=== PATIENT | female | born 1945 | race Caucasian/White ===

== ENCOUNTER 2017-02-19 09:00 | Outpatient (RCR) | payer MEDICARE, OTHER, SELFPAY ==
--- NOTE | 2016-12-25 11:45 | HP.OTEVAL_ITS ---
Patient's Visit Information VINAY TALAVERA is a 71 year old F, referred to Occupational Therapy by Brennen Hopper,, with a diagnosis of Dupuytren's contracture right small finger. Date of Evaluation: 12/25/16 Occupational Therapist: Marquita Ruby, OTR/L, CHT - Subjective Subjective: Pt arrives for inital OT evaluation 12-25-16. She was refered by Dr. Hopper with dx of Dupuytren's contracture right small finger-s/p release on . pt arrives in need of custom orthosis and ed. of exercises to intiate to limit ROM complications. pt states she needs assistance with all her daily occupations at this time. she is hopeful she can return to her PLOF soon. - Pain Right hand 2 Pain Intensity Range: 2, 5 - Objective Objective/Observation: pt demo with newly heal incision on right hand and LF- looks clean a is healing- stitches to be removed in another week- per pt. - ROM MP: Right LF 20/0 left LF 0/85 PIP: Right LF -15/60 left LF 0/95 DIP: Right LF 20 Left LF 0/80 ROM Comments: Pt demo with limited functional ROM of right composite fist due to swelling and newly healing incisions- - Strength Artist And Repertoire Manager: will test at later date - Edema Proximal Phalanx: right 7.6 left 7.1 - Hand/Wrist Evaluation Total Score of Pain & Functional Sections: 80 - Goals Goal:: Pt will demostrate increase in right functional grasp demonstrating a composite fist to incrase ind with holding coins etc by d/c Goal:: pt will report pain no greater than 1/10 with use of right hand during functional ADLS and IADLS by d/c Goal:: pt will demo a reduction in right hand edema by .5 cm by week 3. Goal:: pt will demonstrate understanding of scar mtg by end of 4th session to decrease risk of hypertrophic scaring. Goal:: g code initial CM. g code goal CI - Rehabilitation General Assessment: S/P release. Pt demo newly healing incision, limited functional ROM, edema and pain Rehabilitation Potential: Excellent - Anticipated Interventions Anticipated Interventions: A/AAROM/PROM, Strengthening, Edema Control, Scar Care , Triggerpoint Release, Wound Care, Modalities, Orthoses, Fine Motor Coord/ Olu - Visit Plan Frequency: 1-2x /Week Duration: 4 Weeks General Plan: pt demonstrating need for skilled OT services- lien. of silasitc extension splint for pt to use at night and when out of the house- ed. pt on AROM ex to perform every hour- onece incision is healed and pt demo good functional ROM we will initiate PRE. TEXT: Thank you for the opportunity to evaluate your patient. For Medicare and Medicare HMO plans, please review the plan of care and approve it. It will need to be FAXED BACK to us at [phone] for Medicare purposes. Please let me know if there are questions or concerns regarding this plan of care. Physician Signature: Date:
--- NOTE | 2016-12-26 09:00 | HP.OTEVAL ---
Patient's Visit Information VINAY TALAVERA is a 71 year old F, referred to Occupational Therapy by Brennen Hopper,, with a diagnosis of Dupuytren's contracture right small finger. Date of Evaluation: 12/25/16 Occupational Therapist: Marquita Ruby, OTR/L, CHT - Subjective Subjective: Pt arrives for inital OT evaluation 12-25-16. She was refered by Dr. Hopper with dx of Dupuytren's contracture right small finger-s/p release on 12-18-16. pt arrives in need of custom orthosis and ed. of exercises to intiate to limit ROM complications. pt states she needs assistance with all her daily occupations at this time. she is hopeful she can return to her PLOF soon. - Pain Right hand 2 Pain Intensity Range: 2, 5 - Objective Objective/Observation: pt demo with newly heal incision on right hand and LF- looks clean a is healing- stitches to be removed in another week- per pt. - ROM MP: Right LF 20/0 left LF 0/85 PIP: Right LF -15/60 left LF 0/95 DIP: Right LF 20 Left LF 0/80 ROM Comments: Pt demo with limited functional ROM of right composite fist due to swelling and newly healing incisions- - Strength Glass Pulverizer Equipment Operator: will test at later date - Edema Proximal Phalanx: right 7.6 left 7.1 - Hand/Wrist Evaluation Total Score of Pain & Functional Sections: 80 - Goals Goal:: Pt will demostrate increase in right functional grasp demonstrating a composite fist to incrase ind with holding coins etc by d/c Goal:: pt will report pain no greater than 1/10 with use of right hand during functional ADLS and IADLS by d/c Goal:: pt will demo a reduction in right hand edema by .5 cm by week 3. Goal:: pt will demonstrate understanding of scar mtg by end of 4th session to decrease risk of hypertrophic scaring. Goal:: g code initial CM. g code goal CI - Rehabilitation General Assessment: S/P release. Pt demo newly healing incision, limited functional ROM, edema and pain Rehabilitation Potential: Excellent - Anticipated Interventions Anticipated Interventions: A/AAROM/PROM, Strengthening, Edema Control, Scar Care, Triggerpoint Release, Wound Care, Modalities, Orthoses, Fine Motor Coord/Olu - Visit Plan Frequency: 1-2x /Week Duration: 4 Weeks General Plan: pt demonstrating need for skilled OT services- lien. of silasitc extension splint for pt to use at night and when out of the house- ed. pt on AROM ex to perform every hour- onece incision is healed and pt demo good functional ROM we will initiate PRE. TEXT: Thank you for the opportunity to evaluate your patient. For Medicare and Medicare HMO plans, please review the plan of care and approve it. It will need to be FAXED BACK to us at [phone] for Medicare purposes. Please let me know if there are questions or concerns regarding this plan of care. Physician Signature: Date:
--- NOTE | 2017-02-19 09:44 | HP.OTDCSUM_ITS ---
HP - OT D/C Summary It has been my pleasure to treat VINAY TALAVERA under orders from Brennen Hopper, for the diagnosis of Dupuytren's contracture right small finger for a total of 15 visit(s). Please see the following information for a summary of their discharge status. - Objective Objective/Function: pt states she is ind. with all BADLS and craft activitites - Goals Patient Goals: Regain Mobility, Regain Strength, Decrease Pain, Decrease Swelling/Stiffness, Use Hand/Wrist/Arm Normally Again Goal:: Pt will demostrate increase in right functional grasp demonstrating a composite fist to incrase ind with holding coins etc by d/c Goal:: pt will report pain no greater than 1/10 with use of right hand during functional ADLS and IADLS by d/c Goal:: pt will demo a reduction in right hand edema by .5 cm by week 3. Goal:: pt will demonstrate understanding of scar mtg by end of 4th session to decrease risk of hypertrophic scaring. Goal:: g code initial CM. g code goal CI - Plan Plan: D/C - D/C Information Discharge Comments: Pt has met functional goals in OT and reports ind. with all BADLS and IADLs. pt is D/C at this time. If there are questions or concerns regarding this patient's occupational therapy , please fell free to call me at [phone]. Thank you for the referral of this patient. Sincerely, Marquita Ruby, OTR/L, CHT
== END 2017-02-19 19:00 | disposition home or self-care (01) ==
LOC: OT 09:00
PROVIDERS: Family Provider Internal Medicine; PCP Internal Medicine; Visit Provider Surgery
DX: M72.0 Palmar fascial fibromatosis [Dupuytren] (principal)
CPT/HCPCS: 97035; 97110; 97140; 97166; 97530; 97760; G8987; G8988; G8989

== ENCOUNTER → 2017-07-04 07:36 | Outpatient (CLI) | payer MEDICARE, SELFPAY ==
--- NOTE | 2017-07-04 07:14 | HPBI_ITS ---
MAMMOGRAPHY - BILATERAL SCREENING REASON FOR EXAM: Female, 71 years old. Routine annual screening examination. PERTINENT HISTORY: Mother with breast cancer. Grandmother with breast cancer. TECHNIQUE: Digital bilateral breast santa (3D mammographic acquisition) in the CC and MLO projections. 2-D mediolateral oblique (MLO) and craniocaudad (CC) views of both breasts were obtained. CAD: Full Field Digital Mammography with Computer Added Detection was performed. COMPARISON: Comparison is made with prior outside examination dated February 27, 2016. FINDINGS: Breast Composition: There are scattered areas of fibroglandular density. There are no dominant masses or suspicious calcifications. No other significant abnormalities are identified. There has been no significant change since the prior study. HPBI/SCREENING MAMM (CAD), BILAT IMPRESSION: Stable bilateral screening mammogram. Yearly follow-up mammogram recommended. (A) ASSESSMENT CATEGORY: BIRADS Category 1: Negative. A letter regarding these results will be sent to the patient by the facility within 30 days. Approximately 10% of breast cancers are not detected by mammography. A normal mammogram should not delay biopsy of a clinically suspicious abnormality. [id number] Electronically Signed: Andre Brian MD at 8:47 EDT Tel [phone], Service support ,
== END ==
PROVIDERS: Family Provider Internal Medicine; PCP Internal Medicine; Visit Provider Obstetrics & Gynecology
DX: Z12.31 Encounter for screening mammogram for malignant neoplasm of breast (principal); Z80.3 Family history of malignant neoplasm of breast
CPT/HCPCS: 77063; 77067

== ENCOUNTER → 2018-07-21 07:37 | Outpatient (CLI) | payer MEDICARE, SELFPAY ==
--- NOTE | 2018-07-21 07:41 | BI_ITS ---
MAMMOGRAPHY - BILATERAL SCREENING REASON FOR EXAM: Female, 72 years old. Routine annual screening examination. PERTINENT HISTORY: Mother with breast cancer. Grandmother with breast cancer. TECHNIQUE: Digital bilateral breast sunita (3D mammographic acquisition) in the CC and MLO projections. 2-D mediolateral oblique (MLO) and craniocaudad (CC) views of both breasts were obtained. CAD: Full Field Digital Mammography with Computer Added Detection was performed. COMPARISON: Comparison is made with prior study dated July 04, 2017 and February 27, 2016. FINDINGS: Breast Composition: There are scattered areas of fibroglandular density. There are no dominant masses or suspicious calcifications. Stable benign-appearing axillary lymph nodes. No other significant abnormalities are identified. There has been no significant change since the prior study. BI/SCREEN MAMM (CAD) W/SUNITA BILAT IMPRESSION: Stable bilateral screening mammogram. Yearly follow-up mammogram recommended. (A) ASSESSMENT CATEGORY: BIRADS Category 2: Benign. A letter regarding these results will be sent to the patient by the facility within 30 days. Approximately 10% of breast cancers are not detected by mammography. A normal mammogram should not delay biopsy of a clinically suspicious abnormality. [id number] Electronically Signed: Andre Brian, at 10:33 EDT , Service support ,
== END ==
PROVIDERS: Family Provider Internal Medicine; PCP Internal Medicine; Referring Provider Obstetrics & Gynecology; Visit Provider Obstetrics & Gynecology
DX: Z12.31 Encounter for screening mammogram for malignant neoplasm of breast (principal)
CPT/HCPCS: 77063; 77067

== ENCOUNTER → 2018-09-22 07:06 | Outpatient (CLI) | payer MEDICARE, SELFPAY ==
[2018-09-02 11:11] VITALS: BMI 34.9
[2018-09-22 08:06] LABS: Cholesterol 173 mg/dL (200); Glucose 109 mg/dL (74-106); High Density Lipoprotein 44 mg/dL; Triglycerides 122 mg/dL; Very Low Density Lipoprotein 24 mg/dL (5-40)
[2018-09-22 08:19] LABS: Vitamin D,25 Hydroxy 53.7 ng/mL (29.95-100.01)
--- NOTE | 2018-09-22 08:25 | BD_ITS ---
STUDY: DUAL ENERGY X-RAY ABSORPTIOMETRY / DXA REASON FOR EXAM: Female, 73 years old. The patient is postmenopausal. No loss of height. TECHNIQUE: Bone Mineral Density (BMD) measurements of lumbar spine and bilateral hips were obtained. COMPARISON: Comparison is made with prior study dated February 19, 2001. FINDINGS: Lumbar Spine (L1-L4): g/cm2 (1.080) / T-score (-0.8) / Z-score (0.9) Findings are suggestive of normal bone density with a low fracture risk. Left Femur Total: g/cm2 (1.005) / T-score (0.0) / Z-score (1.6) Left Femoral Neck: g/cm2 (0.914) / T-score (-0.9) / Z-score (0.9) Right Femur Total: g/cm2 (1.058) / T-score (0.4) / Z-score (2.0) Right Femoral Neck: g/cm2 (0.976) / T-score (-0.4) / Z-score (1.3) The T-Scores on the most recent prior examination were: Lumbar Spine (L1-L4): There has been worsening of bone density since the previous examination. Left Femur Total: which represents a worsening of 15%. Right Femur Total: . BD/Dexa Bone Density Study IMPRESSION: The patient is considered normal as outlined below according to [employer] (WHO) criteria with a low fracture risk. There has been worsening of bone density since the previous examination. Reference Information: The T-score is the number of standard deviations above or below the standard which is normal for young adults at their peak bone mineral density. The World Health Organization (WHO) interprets the T-scores as follows: Above -1 Normal bone density Between -1 and -2.5 Osteopenia Equal to / or below -2.5 Osteoporosis As a practical clinical guideline, osteopenia may be graded as follows: Mild -1 through -1.5 Moderate -1.6 through -2.0 Severe -2.1 through -2.4 The Z-score is the number of standard deviations above or below age-matched controls. A Z-score of less than -1.5 would be considered abnormal. References: 1. NIH Osteoporosis and Related Bone Diseases http://www.osteo.org 2. International Society for Clinical Densitometry http://www.iscd.org 3. National Osteoporosis Foundation http://www.nof.org Electronically Signed: Andre Brian, at 10:20 EDT , Service support ,
== END ==
PROVIDERS: Family Provider Internal Medicine; PCP Internal Medicine; Referring Provider Obstetrics & Gynecology; Visit Provider Obstetrics & Gynecology
DX: E78.5 Hyperlipidemia, unspecified (principal); Z13.1 Encounter for screening for diabetes mellitus; Z13.21 Encounter for screening for nutritional disorder; Z78.0 Asymptomatic menopausal state
CPT/HCPCS: 36415; 77080; 80061; 82306; 82947

== ENCOUNTER → 2018-10-23 07:18 | Outpatient (CLI) | payer MEDICARE, SELFPAY ==
[2018-09-02 11:11] VITALS: BMI 34.9
[2018-10-23 08:00] LABS: Creatinine, Serum 0.86 mg/dL (0.55-1.02); EST Glomerular Filtration Rate 69 mL/min (>60); Est Glom Filt Rate - Afr Amer 84 mL/min (>60)
== END ==
PROVIDERS: Family Provider Internal Medicine; PCP Internal Medicine; Referring Provider Podiatrist Foot & Ankle Surgery; Visit Provider Podiatrist Foot & Ankle Surgery
DX: M79.9 Soft tissue disorder, unspecified (principal)
CPT/HCPCS: 36415; 82565

== ENCOUNTER → 2018-11-06 09:25 | Outpatient (CLI) | payer MEDICARE, SELFPAY ==
[2018-11-06 08:58] VITALS: BMI 34.8
[2018-11-06 12:29] LABS: Anion Gap 8 (5-15); BUN 17 mg/dL (7-18); Calcium,Total 9.3 mg/dL (8.5-10.1); Chloride 102 mmol/L (98-107); Creatinine, Serum 0.95 mg/dL (0.55-1.02); EST Glomerular Filtration Rate 62 mL/min (>60); Est Glom Filt Rate - Afr Amer 75 mL/min (>60); Glucose 139 mg/dL (74-106); Magnesium 1.7 mg/dL (1.6-2.6); Potassium 3.6 mmol/L (3.5-5.1); Sodium Level 140 mmol/L (136-145)
== END ==
PROVIDERS: Family Provider Internal Medicine; PCP Internal Medicine; Visit Provider Internal Medicine
DX: I10 Essential (primary) hypertension (principal); R00.2 Palpitations
CPT/HCPCS: 36415; 80048; 83735

== ENCOUNTER → 2018-12-14 07:47 | Outpatient (CLI) | payer MEDICARE, SELFPAY ==
[2018-12-11 09:53] VITALS: BMI 34.8
--- NOTE | 2018-12-14 07:49 | EKG12_ITS ---
Test Reason : Blood Pressure : / mmHG Vent. Rate : 067 BPM Atrial Rate : 067 BPM P-R Int : 152 ms QRS Dur : 080 ms QT Int : 408 ms P-R-T Axes : 045 -03 030 degrees QTc Int : 431 ms Normal sinus rhythm Nonspecific ST abnormality Abnormal ECG Confirmed by NASH OLEARY, KATELIN ([id number]), fashion editor RICH BALDWIN ([id number]) on 12/14/2018 1:28:19 PM Referred By: Eboni Katz Confirmed By:KATELIN CAO MD
== END ==
PROVIDERS: Family Provider Internal Medicine; PCP Internal Medicine; Referring Provider Internal Medicine; Visit Provider Internal Medicine
DX: R00.2 Palpitations (principal)
CPT/HCPCS: 93005

== ENCOUNTER → 2019-03-04 14:59 | Outpatient (CLI) | payer MEDICARE, SELFPAY ==
[2019-03-04 09:46] VITALS: BMI 34.8
== END ==
PROVIDERS: Family Provider Internal Medicine; PCP Internal Medicine; Visit Provider Nurse Practitioner Women's Health
DX: R30.0 Dysuria (principal)
CPT/HCPCS: 87077; 87086; 87088; 87186

== ENCOUNTER → 2019-03-16 09:38 | Outpatient (CLI) | payer MEDICARE, SELFPAY ==
[2019-03-16 09:16] VITALS: BMI 34.8
[2019-03-16 09:57] LABS: Mucous, Urine 0 SEEN /hpf (<or=2+); Red Blood Cells-Urine 0 SEEN /hpf (0-5)
[2019-03-16 12:49] LABS: Color, Urine Yellow (Yellow); Glucose, Dipstick Normal (Normal); Ketone-Dipstick Negative (Negative); Leukocyte Esterase-Dipstick 500 /ul (Negative); Nitrite-Dipstick Negative (Negative); Occult Blood-Urine Negative /ul (Negative); Protein-Dipstick Negative (Negative); Urine Bilirubin Dipstick Negative (Negative); Urine Clarity Clear (Clear); Urine Urobilinogen 1 mg/dl (Normal)
[2019-03-16 13:01] LABS: Bacteria RARE /hpf (None Seen); Squamous Epithelial Cells - UA 0-5 SEEN /hpf (5-10); White Blood Cells 0-5 SEEN /hpf (0-5)
== END ==
PROVIDERS: Family Provider Internal Medicine; PCP Internal Medicine; Visit Provider Internal Medicine
DX: N39.0 Urinary tract infection, site not specified (principal)
CPT/HCPCS: 81001

== ENCOUNTER → 2019-05-05 10:13 | Outpatient (CLI) | payer MEDICARE, SELFPAY ==
[2019-03-16 09:16] VITALS: BMI 34.8
[2019-05-05 10:58] LABS: Anion Gap 4 (5-15); BUN 21 mg/dL (7-18); BUN/Creat Ratio 17.4 RATIO (10-20); Calcium,Total 9.1 mg/dL (8.5-10.1); Chloride 103 mmol/L (98-107); Creatinine, Serum 1.21 mg/dL (0.55-1.02); EST Glomerular Filtration Rate 46 mL/min (>60); Est Glom Filt Rate - Afr Amer 56 mL/min (>60); Glucose 99 mg/dL (74-106); Sodium Level 138 mmol/L (136-145)
== END ==
PROVIDERS: Family Provider Internal Medicine; PCP Internal Medicine; Referring Provider Internal Medicine; Visit Provider Internal Medicine
DX: I10 Essential (primary) hypertension (principal); N39.0 Urinary tract infection, site not specified
CPT/HCPCS: 36415; 80048; 87086; 87186

== ENCOUNTER → 2019-05-24 08:45 | Outpatient (CLI) | payer MEDICARE, SELFPAY ==
[2019-05-24 08:24] VITALS: BMI 34.8
[2019-05-24 12:25] LABS: Anion Gap 6 (5-15); BUN 16 mg/dL (7-18); BUN/Creat Ratio 17.4 RATIO (10-20); Calcium,Total 9.4 mg/dL (8.5-10.1); Chloride 104 mmol/L (98-107); Creatinine, Serum 0.92 mg/dL (0.55-1.02); EST Glomerular Filtration Rate 64 mL/min (>60); Est Glom Filt Rate - Afr Amer 77 mL/min (>60); Glucose 125 mg/dL (74-106); Potassium 3.7 mmol/L (3.5-5.1); Sodium Level 139 mmol/L (136-145)
== END ==
PROVIDERS: PCP Internal Medicine; Referring Provider Internal Medicine; Visit Provider Internal Medicine
DX: I10 Essential (primary) hypertension (principal)
CPT/HCPCS: 36415; 80048

== ENCOUNTER → 2019-05-28 09:11 | Outpatient (CLI) | payer MEDICARE, SELFPAY ==
[2019-05-24 08:24] VITALS: BMI 34.8
--- NOTE | 2019-05-28 09:12 | US_ITS ---
STUDY: ABDOMINAL ULTRASOUND - RIGHT UPPER QUADRANT REASON FOR VISIT: Female, 73 years old pain, nausea and vomiting TECHNIQUE: Ultrasound evaluation of the right upper quadrant was performed with real-time and static burnett-scale imaging. TECHNICAL QUALITY: Adequate. COMPARISON: None. FINDINGS: Liver: The liver measures 15.7 cm. There is increased echogenicity consistent with fatty infiltration. The bile ducts are within normal limits. There is hepatic color flow. The direction of portal flow is hepatopetal. There is no demonstrated mass lesion. Gallbladder: Normal distended gallbladder. The gallbladder wall measures 3 mm. There is a negative sonographic Barnett''s sign. There is no pericholecystic fluid. There are no gallstones. Common Bile Duct (C.B.D.): The common bile duct measures 4 mm. Pancreas: Normal size of the head, body and tail of the pancreas. There is normal echogenicity of the pancreas. There is no demonstrated pancreatic mass or cyst. Right Kidney: Normal size of the right kidney. The right kidney measures 10.7 x 5.1 x 4.1 cm. Normal renal cortex. The right cortex measures 1.4 cm. There is no demonstrated renal mass or cyst. There is no right hydronephrosis. US/Abdomen Limited IMPRESSION: Diffuse fatty infiltration of the liver, no discrete lesion Electronically Signed: Adam Sandy MD at 14:41 EST , Service support ,
== END ==
PROVIDERS: PCP Internal Medicine; Referring Provider Internal Medicine; Visit Provider Internal Medicine
DX: R11.0 Nausea (principal)
CPT/HCPCS: 76705

== ENCOUNTER → 2019-06-21 08:40 | Outpatient (CLI) | payer MEDICARE, SELFPAY ==
[2019-06-21 08:20] VITALS: BMI 34.0
[2019-06-21 13:13] LABS: ALB/GLOB Ratio 0.9 RATIO (0.9-2.4); AST(SGOT) 18 U/L (15-37); Alanine Aminotransfer ALT/SGPT 23 U/L (13-56); Albumin, Serum 3.4 g/dL (3.2-5.0); Alkaline Phosphatase 87 U/L (45-117); Anion Gap 5 (5-15); BUN 16 mg/dL (7-18); BUN/Creat Ratio 18.5 RATIO (10-20); Calcium,Total 9.2 mg/dL (8.5-10.1); Chloride 103 mmol/L (98-107); Creatinine, Serum 0.87 mg/dL (0.55-1.02); EST Glomerular Filtration Rate 68 mL/min (>60); Est Glom Filt Rate - Afr Amer 82 mL/min (>60); Globulin 3.6 g/dL (2.2-4.2); Glucose 130 mg/dL (74-106); Potassium 3.6 mmol/L (3.5-5.1); Sodium Level 138 mmol/L (136-145)
== END ==
PROVIDERS: PCP Internal Medicine; Referring Provider Internal Medicine; Visit Provider Internal Medicine
DX: I10 Essential (primary) hypertension (principal); E78.5 Hyperlipidemia, unspecified
CPT/HCPCS: 36415; 80053

== ENCOUNTER → 2019-09-09 07:59 | Outpatient (CLI) | payer MEDICARE, SELFPAY ==
[2019-06-21 12:53] VITALS: BMI 34.8
--- NOTE | 2019-09-09 08:00 | BI_ITS ---
MAMMOGRAPHY - BILATERAL SCREENING REASON FOR EXAM: Female, 74 years old. Routine annual screening examination. PERTINENT HISTORY: Mother with breast cancer. Grandmother with breast cancer. TECHNIQUE: Digital bilateral breast sunita (3D mammographic acquisition) in the CC and MLO projections. 2-D mediolateral oblique (MLO) and craniocaudad (CC) views of both breasts were obtained. CAD: Full Field Digital Mammography with Computer Added Detection was performed. COMPARISON: Comparison is made with prior examination dated July 21, 2018 and July 04, 2017. FINDINGS: Breast Composition: There are scattered areas of fibroglandular density. There are no dominant masses or suspicious calcifications. Stable benign-appearing right axillary lymph nodes. No other significant abnormalities are identified. There has been no significant change since the prior study. BI/SCREEN MAMM (CAD) W/SUNITA BILAT IMPRESSION: Stable bilateral screening mammogram. Yearly follow-up mammogram recommended. (A) ASSESSMENT CATEGORY: BIRADS Category 2: Benign. A letter regarding these results will be sent to the patient by the facility within 30 days. Approximately 10% of breast cancers are not detected by mammography. A normal mammogram should not delay biopsy of a clinically suspicious abnormality. [id number] Electronically Signed: Andre Brian, at 10:10 EDT , Service support ,
== END ==
PROVIDERS: PCP Internal Medicine; Referring Provider Obstetrics & Gynecology; Visit Provider Obstetrics & Gynecology
DX: Z12.31 Encounter for screening mammogram for malignant neoplasm of breast (principal)
CPT/HCPCS: 77063; 77067

== ENCOUNTER → 2019-10-13 07:42 | Outpatient (CLI) | payer MEDICARE, SELFPAY ==
[2019-09-09 08:24] VITALS: BMI 34.8
--- NOTE | 2019-10-13 07:50 | CT_ITS ---
CT of the left lower extremity without contrast INDICATION: Left knee arthritis, Allen protocol TECHNIQUE: Multiple thin section axial CT images the left lower extremity were obtained through the hip joint, knee joint, and ankle with a fiducial in place and filmed in bone windows. Furthermore, multiple sagittal and coronal reconstructions were performed. FINDINGS: No abnormal soft tissue mass, lymphadenopathy, fluid collection. Normal appearance to the musculature of the thigh and leg. No acute fracture or dislocation. No lytic or blastic lesions. Mild arthrosis of the left hip joint. Severe arthrosis of the left knee joint. No arthrosis of the tibiotalar joint. IMPRESSION: Severe left knee arthrosis. Electronically Signed: Matias Muller MD at 9:03 EDT Tel , Service support , CT/Extremity Lower without Contra
== END ==
PROVIDERS: PCP Internal Medicine; Referring Provider Orthopaedic Surgery; Visit Provider Orthopaedic Surgery
DX: M17.12 Unilateral primary osteoarthritis, left knee (principal)
CPT/HCPCS: 73700

== ENCOUNTER 2019-10-25 09:12 | Observation (INO) | payer MEDICARE, SELFPAY ==
[2019-09-09 08:24] VITALS: BMI 34.8
--- NOTE | 2019-10-13 07:53 | EKG12_ITS ---
Test Reason : PRE OP Blood Pressure : / mmHG Vent. Rate : 070 BPM Atrial Rate : 070 BPM P-R Int : 154 ms QRS Dur : 082 ms QT Int : 400 ms P-R-T Axes : 043 012 018 degrees QTc Int : 432 ms Normal sinus rhythm Normal ECG Confirmed by BENJI MEDINA ([id number]), story editor RORO FAITH ([id number]) on 10/19/2019 8:02:14 AM Referred By: Manuel Wu Confirmed By:BENJI MEDINA
[2019-10-13 08:13] LABS: Absolute Lymphocyte Count 2.32 X10^3/uL (0.83-4.51); Absolute Neutrophil Count 4.3 X10^3/uL (2.0-7.7); Basophil# 0.05 X10^3/uL; Basophil% 0.7 % (0-1); Eosinophil# 0.16 X10^3/uL; Eosinophils% 2.1 % (0-5); Hematocrit 41.6 % (37-47); Hemoglobin 13.5 g/dL (12.0-15.0); Lymphocyte # 2.32 X10^3/ul (4.0); Lymphocyte % 30.8 % (19-41); Mean Corp Hgb Conc 32.5 g/dL (32-36); Mean Corpuscular Volume 92.4 fL (81-99); Mean Platelet Vol. 10.8 fl (6.2-12.0); Monocyte# 0.66 X10^3/uL; Monocyte% 8.8 % (0-10); NRBC Flagged by Analyzer 0 % (0-5); Neutrophil # 4.33 X10^3/uL (2.7-7.7); Neutrophil % 57.3 % (47-70); Platelet Count 214 K/mm3 (150-450); RBC Distribution Width CV 12.9 % (11.6-14.6); RBC Distribution Width SD 43.3 fl (35.1-43.9); White Blood Count 7.5 K/mm3 (4.4-11.0)
[2019-10-13 08:33] LABS: Anion Gap 6 (5-15); BUN 19 mg/dL (7-18); BUN/Creat Ratio 23.3 RATIO (10-20); Calcium,Total 9.2 mg/dL (8.5-10.1); Chloride 101 mmol/L (98-107); Creatinine, Serum 0.82 mg/dL (0.55-1.02); EST Glomerular Filtration Rate 73 mL/min (>60); Est Glom Filt Rate - Afr Amer 88 mL/min (>60); Glucose 103 mg/dL (74-106); Potassium 3.6 mmol/L (3.5-5.1); Sodium Level 138 mmol/L (136-145)
[2019-10-25] VITALS (12 sets, daily range): BP systolic 90–138; BP diastolic 51–70; PULSE 65–83; RESP 16; TEMP 36.2–36.7; O2SAT 92–100; BMI 32.9
--- NOTE | 2019-10-25 | KNEE_PTH ---
PATIENT: VINAY TALAVERA LOC: MS3 U#:[id number] AGE/SX: 74/F ROOM: MS312 RE10/25/[address]: Dr. Manuel Wu DO : 1945 BED: 1 DIS: 10/26/2019 SPEC #: [id number] RECD: 10/26/19 08:52 STATUS: VIVEK REMichel #: [id number] KATHY: 10/25/19 00:[address]: Manuel Wu DEPT: SURGICAL PATHOLOGY RECD BY: Devante Godfrey ENTERED: 10/26/19 08:52 SP TYPE: TOTAL KNEE OTHR DR: MD Kavin Thompson PA-C Tissues: Knee, NOS Procedures: Decalcification bone/plaque Surgery Specimen Level IV HEADER OPERATION: ERAS, total knee replacement robotic arm assist PRE-OP DIAGNOSIS: Primary osteoarthritis left knee TISSUE SUBMITTED: Left knee bone and soft tissue MICROSCOPIC DIAGNOSIS Bone and soft tissue of left knee, total knee resection: Severe degenerative joint disease. Mild synovial hyperplasia. Polarizable crystals consistent with pseudogout. AM:ashley 10/29/19 MICROSCOPIC DESCRIPTION Slides are reviewed. GROSS DESCRIPTION Received is one container designated bone and soft tissue left knee. The specimen consists of multiple fragments of amin-yellow bone measuring in aggregate 10 x 9 x 3 cm. Also in the specimen container are multiple fragments of yellow-white soft tissue measuring in aggregate 10 x 8 x 2.5 cm. A number of bony fragments contain articular surfaces consistent with tibial plateau and femoral condyle and displaying prominent osteophyte formation, eburnation, and bone erosion. Cut Off Machine Helper sections are submitted in two cassettes as follows: 1 - soft tissue, 2 - bone after decalcification. / SJ:ashley 10/26/19 TC:5 [facility]: [id number], [id number]
--- NOTE | 2019-10-25 09:13 | RAD_ITS ---
STUDY: X-RAY - LEFT KNEE REASON FOR EXAM: Female, 74 years old. Post op left total knee replacement. TECHNIQUE: 2 view(s) of the knee. COMPARISON: None. FINDINGS: Patient is status post replacement of the left knee joint. Components demonstrate anatomic alignment. No plain film evidence of postoperative complication. Normal postoperative soft tissue swelling and subcutaneous emphysema. RAD/Knee 1 or 2 Views IMPRESSION: Replaced left knee joint demonstrates anatomic alignment, no plain film evidence of postoperative complication Electronically Signed: Adam Sandy MD at 15:15 EDT , Service support ,
[2019-10-25] MEDS: Acetaminophen 500 MG Tablet 1000 MG PO ×2 (09:30→22:06)
[2019-10-25] MEDS: Gabapentin 600 MG Tablet PO (09:31)
[2019-10-25 09:56] LABS: Bedside Glucose 136 mg/dL (70-110)
[2019-10-25] MEDS: Lactated Ringers 1,000 ML 125 ML IV ×3 (10:07→23:23)
[2019-10-25] MEDS: Cefazolin 2 GM in 0.9% Normal Saline 100 ML IV (12:01)
--- NOTE | 2019-10-25 13:32 | OP.PCM_ITS ---
Report of Operation Date of Procedure: 10/25/19 Pre-Operative Diagnosis: OA left knee Post-Operative Diagnosis: same Surgery/Procedure Performed:: Left TKR fine jewelry sales associate: Kavin Vaz Type of Anesthesia:: Spinal Anesthesiologist: Bud Mata - Admkia VTE Documentation VTE Present on Admission: No VTE Mechan Device Prophylaxis: SCD's, Thigh High CATRACHITA Hose VTE Pharm Prophylaxis ordered?: Yes
[2019-10-25] MEDS: Lactated Ringers 1,000 ML 999 ML IV (14:00)
[2019-10-25 16:56] LABS: Hematocrit 36.2 % (37-47); Hemoglobin 11.7 g/dL (12.0-15.0); Mean Corp Hgb Conc 32.3 g/dL (32-36); Mean Corpuscular Hgb 29.8 pg (27.0-32.0); Mean Corpuscular Volume 92.1 fL (81-99); Mean Platelet Vol. 10.7 fl (6.2-12.0); Platelet Count 190 K/mm3 (150-450); RBC Distribution Width CV 12.5 % (11.6-14.6); RBC Distribution Width SD 41.4 fl (35.1-43.9); Red Blood Count 3.93 M/mm3 (4.2-5.4); White Blood Count 7.1 K/mm3 (4.4-11.0)
[2019-10-25 17:08] LABS: Anion Gap 6 (5-15); BUN 12 mg/dL (7-18); BUN/Creat Ratio 15.2 RATIO (10-20); Calcium,Total 8.6 mg/dL (8.5-10.1); Chloride 105 mmol/L (98-107); Creatinine, Serum 0.79 mg/dL (0.55-1.02); EST Glomerular Filtration Rate 76 mL/min (>60); Est Glom Filt Rate - Afr Amer 92 mL/min (>60); Glucose 125 mg/dL (74-106); Potassium 3.3 mmol/L (3.5-5.1); Sodium Level 141 mmol/L (136-145)
[2019-10-25] MEDS: Ondansetron 4 MG/2 ML Vial IV (17:16)
[2019-10-25] MEDS: Cefazolin 1 GM/50 ML BAG IV (20:01)
[2019-10-25] MEDS: Aspirin 325 MG Tablet PO (22:06)
[2019-10-25] MEDS: Pramipexole Di-HCl 0.25 MG Tablet PO (22:06)
[2019-10-25] MEDS: Senna/Docusate Sodium 1 Tablet 2 TABLET PO (22:06)
[2019-10-26 01:55] VITALS: BP 112/61; PULSE 67; RESP 18; TEMP 36.2; O2SAT 100
[2019-10-26] MEDS: Cefazolin 1 GM/50 ML BAG IV (04:09)
[2019-10-26] MEDS: oxyCODONE 5 MG Tablet PO ×3 (04:13→12:06)
[2019-10-26] MEDS: Acetaminophen 500 MG Tablet 1000 MG PO (05:41)
[2019-10-26] MEDS: Pramipexole Di-HCl 0.25 MG Tablet PO (05:41)
[2019-10-26 05:53] LABS: Hemoglobin 10.8 g/dL (12.0-15.0); Mean Corp Hgb Conc 31.8 g/dL (32-36); Mean Corpuscular Hgb 29.5 pg (27.0-32.0); Mean Corpuscular Volume 92.9 fL (81-99); Mean Platelet Vol. 10.4 fl (6.2-12.0); Platelet Count 161 K/mm3 (150-450); RBC Distribution Width CV 12.5 % (11.6-14.6); RBC Distribution Width SD 41.7 fl (35.1-43.9); Red Blood Count 3.66 M/mm3 (4.2-5.4); White Blood Count 7.7 K/mm3 (4.4-11.0)
[2019-10-26 06:19] LABS: Anion Gap 5 (5-15); BUN 9 mg/dL (7-18); BUN/Creat Ratio 13.5 RATIO (10-20); Calcium,Total 8.4 mg/dL (8.5-10.1); Chloride 102 mmol/L (98-107); Creatinine, Serum 0.67 mg/dL (0.55-1.02); EST Glomerular Filtration Rate 92 mL/min (>60); Est Glom Filt Rate - Afr Amer 112 mL/min (>60); Glucose 122 mg/dL (74-106); Potassium 3.1 mmol/L (3.5-5.1); Sodium Level 139 mmol/L (136-145)
[2019-10-26] MEDS: Ondansetron 4 MG/2 ML Vial IV (06:51)
[2019-10-26 07:49] VITALS: BP 98/46; PULSE 58; RESP 16; TEMP 37.1; O2SAT 97
--- NOTE | 2019-10-26 07:59 | PCM.PN.ORT ---
Subjective: Patient sitting at bedside eating breakfast. Patient states she had some nausea last night, but is feeling much better today. Patient denies chest pain, shortness of breath, calf pain, nausea vomiting. Patient states she is ready for discharge home. Objective: Dressings clean dry and intact. Patient potassium is 3.1. Vitals are within normal limits. Negative signs and symptoms of DVT. Neurovascular is otherwise intact. Patient no respiratory distress speaking in full sentences. - Physical Exam Vitals/I&O's: Vital Signs Temp Pulse Resp BP Pulse Ox 98.7 F 58 L 16 98/46 L 97 10/26/19 07:49 10/26/19 07:49 10/26/19 07:49 10/26/19 07:49 10/26/19 07:49 Oxygen Flow Rate (L/min) 6 Oxygen Delivery Method Room Air Weight: 92.6 kg Body Mass Index (BMI) 32.9 Intake and Output for Last 24 Hours 10/24/19 10/25/19 10/26/19 23:59 23:59 23:59 Intake Total 3930 / 3930 1850 / 1850 Output Total 200 / 200 1999 / 1999 Balance 3730 / 3730 -150 / -150 General: Alert, Oriented x3, Cooperative HEENT: PERRLA Oral: Moist Mucosa Neurological: Cranial nerves II-XII grossly intact Psych/Mental Status: Normal Affect, Alert and oriented to time, place, person, mood and affect Laboratory Results 10/25/19 09:51: POC Glucose 136 H 10/25/19 16:20: WBC 7.1, RBC 3.93 L, Hgb 11.7 L, Hct 36.2 L, MCV 92.1, MCH 29.8, MCHC 32.3, RDW Std Deviation 41.4, RDW Coeff of Arlette 12.5, Plt Count 190, MPV 10.7 10/25/19 16:20: Sodium 141, Potassium 3.3 L, Chloride 105, Carbon Dioxide 30.0, Anion Gap 6, BUN 12, Creatinine 0.79, Estim Creat Clear Calc 46.90, Est GFR (MDRD) Af Amer 92, Est GFR (MDRD) Non-Af 76, BUN/Creatinine Ratio 15.2, Glucose 125 H, Calcium 8.6 10/26/19 05:35: WBC 7.7, RBC 3.66 L, Hgb 10.8 L, Hct 34.0 L, MCV 92.9, MCH 29.5, MCHC 31.8 L, RDW Std Deviation 41.7, RDW Coeff of Arlette 12.5, Plt Count 161, MPV 10.4 10/26/19 05:35: Sodium 139, Potassium 3.1 L, Chloride 102, Carbon Dioxide 32.0, Anion Gap 5, BUN 9, Creatinine 0.67, Estim Creat Clear Calc 46.90, Est GFR (MDRD) Af Amer 112, Est GFR (MDRD) Non-Af 92, BUN/Creatinine Ratio 13.5, Glucose 122 H, Calcium 8.4 L Current Medications Acetaminophen (Tylenol) 1,000 mg PO Q8 [facility] Last Admin: 10/26/19 05:41 Dose: 1,000 mg Documented by: Amlodipine Besylate (Norvasc) 7.5 mg PO DAILY [facility] Aspirin (Aspirin) 325 mg PO BID [facility] Last Admin: 10/25/19 22:06 Dose: 325 mg Documented by: Cholecalciferol (Vitamin D (25mcg)) 1,000 unit PO DAILY [facility] Fluoxetine HCl (Prozac) 20 mg PO DAILY [facility] Hydrochlorothiazide (Hctz) 50 mg PO DAILY [facility] Sodium Chloride () 250 mls @ 15 mls/hr IV .[id number] PRN PRN Reason: Saline Flush Sodium Chloride () 250 mls @ 15 mls/hr IV .[id number] PRN PRN Reason: Additional IVPB Infusion Losartan Potassium (Cozaar) 50 mg PO DAILY [facility] Multivitamins/Minerals (Multivitamin With Minerals (Bkc)) 1 tablet PO DAILY@0800 [facility] Ondansetron HCl (Zofran) 4 mg IV Q8H PRN PRN PRN Reason: NAUSEA Last Admin: 10/26/19 06:51 Dose: 4 mg Documented by: Oxycodone HCl (Oxyir) 5 - 10 mg PO Q4H PRN PRN PRN Reason: Pain Score 4-10/10 Last Admin: 10/26/19 04:13 Dose: 5 mg Documented by: Pantoprazole Sodium (Protonix) 20 mg PO DAILY [facility] Potassium Chloride (K-Dur) 20 meq PO DAILY [facility] Pramipexole Dihydrochloride (Mirapex) 0.25 mg PO TID [facility] Last Admin: 10/26/19 05:41 Dose: 0.25 mg Documented by: Promethazine HCl (Phenergan) 12.5 mg IM Q6H PRN PRN; Protocol PRN Reason: NAUSEA/VOMITING Senna/Docusate Sodium (Senokot-S, Mago-Colace) 2 tablet PO BID [facility] Last Admin: 10/25/19 22:06 Dose: 2 tablet Documented by: Sodium Chloride () 10 - 40 ml IV UD PRN PRN Reason: SALINE FLUSH Tolterodine Tartrate (Detrol La) 2 mg PO DAILY [facility] Medical Necessity - Tobacco Use Smoking Status: Never smoker Tobacco Use: Non-smoker Assessment/Plan All Active Problems (Last Reviewed 09/09/19 @ 08:24 by Lachelle Martins) Cataracts, bilateral (Resolved) Vertigo (Acute) Cat bite of right hand with infection (Resolved) Open cat bite of hand (Resolved) Dupuytren's contracture (Resolved) Cancer of skin of left ear (Resolved) Actinic keratosis (Resolved) Open wound of right hand (Acute) Cellulitis of right hand (Acute) Bitten by cat (Acute) Cat bite of right hand including fingers with infection (Acute) Status post left total knee arthroplasty Hypokalemia Plan 1. Continue pain medications as prescribed 2. Continue physical therapy, weight-bear as tolerated with walker 3. Aspirin 325 mg 1 p.o. every 12 hours x30 days for postop DVT prophylaxis 4. Encourage incentive spirometry 5. Encourage oral intake, and fluid intake. 6. If no further nausea vomiting patient is presently taking a potassium supplement she will continue taking all meds as prescribed 7. Discharge home today 8. Continue outpatient physical therapy at [facility] 9. Follow-up as scheduled with Dr. Wu.
[2019-10-26] MEDS: Multivitamins,Ther W-Minerals Tablet 1 TABLET PO (08:07)
[2019-10-26] MEDS: FLUoxetine 20 MG Capsule PO (08:08)
[2019-10-26] MEDS: Pantoprazole Sodium 20 MG Tablet PO (08:08)
[2019-10-26] MEDS: Tolterodine Tartrate 2 MG CAP.SA PO (08:08)
--- NOTE | 2019-10-26 08:10 | DCINST_ITS ---
Discharge Diet: No Restrictions Discharge Activity: May Not Drive, May Shower, Use Walker May shower in (days): 3 Ice area for (Minutes): 20 - each hour while awake. Weight Bearing Status: Weight bearing as tolerated Elevate: Operative Extremity Additional Activity Instructions:: Wear elastic stockings for 2 weeks after your surgery. Call your doctor if your incision/area has: Continuous Slow Oozing, Sudden Increased Bleeding, Increased Pain/ Swelling, Increased Redness, Foul Smelling Discharge Call your doctor if you observe: Fever of 101 or Higher, Coldness, Increased Pain - in extremity, Numbness or Tingling, Change in Color, Calf discomfort, Uncontrolled pain Change Dressing in (Days):: 0 - and daily as needed. Remove Dressing in (days):: 8 Cleanse incision/area with: Soap & Water Allergies/Adverse Reactions: Allergies lisinopril [From Zestril] Adverse Reaction (Intermediate, Verified 10/13/19 14:17) Cough hydrocodone bitartrate [From Vicodin] Adverse Reaction (Mild, Verified 10/13/19 14:17) Itching Medications to take at Discharge Multivitamin with Iron [Multivitamins with Iron] 1 tab PO DAILY 03/31/13 biotin 2,500 mcg capsule 2,500 mcg PO ONCE 07/15/17 cholecalciferol (vitamin D3) 50 mcg (2,000 unit) capsule 1,000 unit PO DAILY 10/01/18 daily defense 1 cap PO DAILY 11/06/18 oxybutynin chloride 10 mg tablet,extended release 24 hr 10 mg PO DAILY #90 tab 11/06/18 ropinirole 0.5 mg tablet 0.5 mg PO TID #360 tab 11/06/18 fluoxetine 20 mg tablet 20 mg PO DAILY #90 tab 03/16/19 amlodipine 5 mg tablet 7.5 mg PO DAILY 90 Days #135 tab 06/21/19 celecoxib 200 mg capsule 200 mg PO DAILY PRN #90 cap 06/21/19 dexlansoprazole 30 mg capsule,biphase delayed release 30 mg PO DAILY #90 cap 06/21/19 losartan 50 mg tablet 50 mg PO DAILY 09/09/19 Hydrochlorothiazide [Hctz] 50 mg PO DAILY 10/13/19 Potassium Chloride 20 meq PO DAILY 10/13/19 Acetaminophen [Tylenol] 1,000 mg PO Q8 #90 tab 10/26/19 Aspirin 325 mg PO BID #60 tab 10/26/19 Oxycodone [Oxyir] 5 - 10 mg PO Q6H PRN PRN 7 Days #56 tablet 10/26/19 The following prescriptions were given: Aspirin 325 mg PO BID #60 tab Transmission Status: Pending to [id number] Oxycodone [Oxyir] 5 - 10 mg PO Q6H PRN PRN 7 Days #56 tablet PRN Reason: Pain Score 4-10/10 Transmission Status: Sent to [id number] Acetaminophen [Tylenol] 1,000 mg PO Q8 #90 tab Transmission Status: Pending to [id number] Primary Care Physician: Eboni Katz MD [Primary Care Provider] - Test Results: Test results from this visit will be discussed in further detail at your follow- up appointment, if applicable. Please Follow Up With: Kavin Vaz PA-C When: as scheduled (see pink sheet)
[2019-10-26] MEDS: Senna/Docusate Sodium 1 Tablet 2 TABLET PO (10:08)
[2019-10-26] MEDS: Aspirin 325 MG Tablet PO (10:08)
--- NOTE | 2019-10-26 10:25 | CASEMGMT ---
RN CM Face to Face with patient for initial transition planning/care coordination assessment. RN CM introduced self and role at [facility]. Patient lying in bed, alert and oriented. Patient willing to participate in assessment and is able to answer all questions appropriately. Care providers, pharmacy, and demographics verified. Patient wishes to discharge home and is setup with [facility] for outpatient therapy. Patient states she has no further needs or concerns at this time. CM to follow for discharge planning needs that may arise. PCP: Gianna Specialists: danielle Wu [facility] Prescription Benefit: yes Living Will/HPOA: yes, Manuel Ro LNOK: Living Arrangements: Patient lives with in 2 story home with bed and bath on first floor. Patient has 2 steps to enter the home. Patient states she was independent prior to surgery Transportation: DME/HHC: Patient has raised toilet, cane, walker at home. Patient is scheduled for outpatient therapy at [facility] starting tomorrow. Disposition Plan: Patient to discharge home with outpatient therapy, family support, and follow-up plans in place. Opal MONTES, RN, CM
== END 2019-10-26 13:30 | disposition home or self-care (01) ==
LOC: SDC 10-26 07:30 → MS3 10-26 07:30
PROVIDERS: Anesthesiology; Physician Assistant; Admitting Provider Orthopaedic Surgery; PCP Internal Medicine; Referring Provider Orthopaedic Surgery; Visit Provider Orthopaedic Surgery
PROC: 0SRD0JZ Replacement of Left Knee Joint with Synthetic Substitute, Open Approach (ICD-10-PCS; CPT 27447; principal; 2019-10-25 10:30)
DX: M17.12 Unilateral primary osteoarthritis, left knee (principal); Z11.59 Encounter for screening for other viral diseases; E78.00 Pure hypercholesterolemia, unspecified; I10 Essential (primary) hypertension; G25.81 Restless legs syndrome; K58.9 Irritable bowel syndrome, unspecified; K21.9 Gastro-esophageal reflux disease without esophagitis; F41.9 Anxiety disorder, unspecified; F32.9 Major depressive disorder, single episode, unspecified; G47.30 Sleep apnea, unspecified; Z79.899 Other long term (current) drug therapy; Z79.82 Long term (current) use of aspirin
CPT/HCPCS: 01400; 27447; 64447; 36415; 73560; 80048; 82962; 85025; 85027; 87077; 87081; 87635; 88305; 88311; 93005; 94799; 96361; 96365; 96366; 96375; 96376; 97110; 97161; 97166; 97530; 99218; 99251; C1776; G2023; J7120; G0378; G0379; G0463; J2405; U0003

== ENCOUNTER → 2019-11-08 11:01 | Outpatient (CLI) | payer MEDICARE, SELFPAY ==
[2019-10-25 09:00] VITALS: BMI 32.9
--- NOTE | 2019-11-08 11:04 | VDLE_ITS ---
Reason For Study: Left leg pain RIGHT LEFT CFV is compressible, spontaneous, phasic, GSV is normal. competent and demonstrates normal CFV is compressible, spontaneous, phasic, augmentation. competent, and demonstrates normal Procedure augmentation. Exam performed in department. FV is compressible, spontaneous, phasic, A preliminary report was called and/or faxed competent and demonstrates normal to Bryce. augmentation. POP V is compressible, spontaneous, phasic, competent and demonstrates normal augmentation. T/P Trunk is compressible. PTV is compressible. LT PerV is compressible. Interpretation Summary Deep veins of the left lower extremity are patent and compressible segmentally. There is no evidence of left lower extremity deep vein thrombosis. Valvular competence appears intact within the proximal deep venous system on the left . The left great saphenous vein appears patent and compressible segmentally. Ordering Physician: Manuel Wu Referring Physician: Eboni Katz Performed By: Opal Hopkins RVT and Student
== END ==
PROVIDERS: PCP Internal Medicine; Referring Provider Orthopaedic Surgery; Visit Provider Orthopaedic Surgery
DX: M79.605 Pain in left leg (principal)
CPT/HCPCS: 93971

== ENCOUNTER → 2020-04-06 13:55 | Outpatient (CLI) | payer MEDICARE, SELFPAY ==
[2020-04-06 15:32] LABS: Absolute Lymphocyte Count 2.25 X10^3/uL (0.83-4.51); Absolute Neutrophil Count 4.8 X10^3/uL (2.0-7.7); Basophil# 0.06 X10^3/uL; Basophil% 0.8 % (0-1); Eosinophil# 0.11 X10^3/uL; Eosinophils% 1.4 % (0-5); Lymphocyte # 2.25 X10^3/ul (4.0); Lymphocyte % 28.4 % (19-41); Mean Corp Hgb Conc 32.6 g/dL (32-36); Mean Corpuscular Hgb 29.4 pg (27.0-32.0); Mean Corpuscular Volume 90.3 fL (81-99); Mean Platelet Vol. 11.1 fl (6.2-12.0); Monocyte# 0.72 X10^3/uL; Monocyte% 9.1 % (0-10); NRBC Flagged by Analyzer 0 % (0-5); Neutrophil # 4.75 X10^3/uL (2.7-7.7); Neutrophil % 59.8 % (47-70); Platelet Count 256 K/mm3 (150-450); RBC Distribution Width CV 13.5 % (11.6-14.6); RBC Distribution Width SD 44.6 fl (35.1-43.9); Red Blood Count 4.76 M/mm3 (4.2-5.4); White Blood Count 7.9 K/mm3 (4.4-11.0)
[2020-04-06 16:03] LABS: ALB/GLOB Ratio 1.1 RATIO (0.9-2.4); AST(SGOT) 19 U/L (15-37); Alanine Aminotransfer ALT/SGPT 25 U/L (13-56); Alkaline Phosphatase 110 U/L (45-117); Anion Gap 7 (5-15); BUN 21 mg/dL (7-18); BUN/Creat Ratio 25.6 RATIO (10-20); Calcium,Total 9.6 mg/dL (8.5-10.1); Chloride 101 mmol/L (98-107); Cholesterol 233 mg/dL (200); Creatinine, Serum 0.82 mg/dL (0.55-1.02); EST Glomerular Filtration Rate 73 mL/min (>60); Est Glom Filt Rate - Afr Amer 88 mL/min (>60); Globulin 3.7 g/dL (2.2-4.2); Glucose 94 mg/dL (74-106); High Density Lipoprotein 53 mg/dL; Potassium 3.4 mmol/L (3.5-5.1); Protein, Total 7.7 g/dL (6.4-8.2); Sodium Level 138 mmol/L (136-145); Triglycerides 172 mg/dL; Very Low Density Lipoprotein 34 mg/dL (5-40)
== END ==
PROVIDERS: PCP Internal Medicine; Referring Provider Internal Medicine; Visit Provider Internal Medicine
DX: I10 Essential (primary) hypertension (principal); F41.8 Other specified anxiety disorders; G47.33 Obstructive sleep apnea (adult) (pediatric)
CPT/HCPCS: 36415; 80053; 80061; 85025

== ENCOUNTER 2020-06-29 07:06 | Outpatient (RCR) | payer MEDICARE, SELFPAY ==
[2020-06-29] MEDS: COVID-19 VACC, MRNA(PFIZER)/PF 30 MCG/0.3 ML SYRINGE IM (08:39)
[2020-07-20] MEDS: COVID-19 VACC, MRNA(PFIZER)/PF 30 MCG/0.3 ML SYRINGE IM (08:12)
== END 2020-09-26 23:59 ==
LOC: IMMUN 07:06
PROVIDERS: PCP Internal Medicine; Visit Provider Family Medicine
DX: Z23 Encounter for immunization (principal)
CPT/HCPCS: 0001A; 0002A; 91300

== ENCOUNTER → 2020-07-04 08:44 | Outpatient (CLI) | payer MEDICARE, SELFPAY ==
[2020-07-04 08:20] VITALS: BMI 33.5
[2020-07-04 13:42] LABS: Anion Gap 7 (5-15); BUN 23 mg/dL (7-18); BUN/Creat Ratio 27.2 RATIO (10-20); Calcium,Total 9.7 mg/dL (8.5-10.1); Chloride 101 mmol/L (98-107); Creatinine, Serum 0.85 mg/dL (0.55-1.02); EST Glomerular Filtration Rate 70 mL/min (>60); Est Glom Filt Rate - Afr Amer 85 mL/min (>60); Glucose 98 mg/dL (74-106); Potassium 3.8 mmol/L (3.5-5.1); Sodium Level 137 mmol/L (136-145)
== END ==
PROVIDERS: PCP Internal Medicine; Referring Provider Internal Medicine; Visit Provider Internal Medicine
DX: I10 Essential (primary) hypertension (principal)
CPT/HCPCS: 36415; 80048

== ENCOUNTER → 2020-09-11 10:37 | Outpatient (CLI) | payer MEDICARE, SELFPAY ==
[2020-09-11 10:11] VITALS: BMI 33.5
--- NOTE | 2020-09-11 10:39 | BI_ITS ---
MAMMOGRAPHY - BILATERAL SCREENING REASON FOR EXAM: Female, 75 years old. Routine annual screening examination. PERTINENT HISTORY: Mother with breast cancer. Grandmother with breast cancer. TECHNIQUE: Digital bilateral breast sunita (3D mammographic acquisition) in the CC and MLO projections. 2-D mediolateral oblique (MLO) and craniocaudad (CC) views of both breasts were obtained. CAD: Full Field Digital Mammography with Computer Added Detection was performed. COMPARISON: Comparison is made with prior examination dated 09/09/2019 and 07/21/2018. FINDINGS: Breast Composition: There are scattered areas of fibroglandular density. There are no dominant masses or suspicious calcifications. Stable benign appearing bilateral axillary lymph nodes. No other significant abnormalities are identified. There has been no significant change since the prior study. BI/SCRN MAMM (CAD)W/SUNITA BILAT IMPRESSION: Stable bilateral screening mammogram. Yearly follow-up mammogram recommended. (A) ASSESSMENT CATEGORY: BIRADS Category 2: Benign. A letter regarding these results will be sent to the patient by the facility within 30 days. Approximately 10% of breast cancers are not detected by mammography. A normal mammogram should not delay biopsy of a clinically suspicious abnormality. [id number] Electronically Signed: Andre Brian MD at 12:27 EDT , Service support ,
== END ==
PROVIDERS: PCP Internal Medicine; Referring Provider Obstetrics & Gynecology; Visit Provider Obstetrics & Gynecology
DX: Z12.31 Encounter for screening mammogram for malignant neoplasm of breast (principal); Z80.3 Family history of malignant neoplasm of breast
CPT/HCPCS: 77063; 77067

== ENCOUNTER → 2020-10-06 08:51 | Outpatient (CLI) | payer MEDICARE, SELFPAY ==
[2020-10-06 08:05] VITALS: BMI 34.0
[2020-10-06 13:19] LABS: Anion Gap 7 (5-15); BUN 14 mg/dL (7-18); BUN/Creat Ratio 16.3 RATIO (10-20); Calcium,Total 8.9 mg/dL (8.5-10.1); Chloride 101 mmol/L (98-107); Creatinine, Serum 0.86 mg/dL (0.55-1.02); EST Glomerular Filtration Rate 69 mL/min (>60); Est Glom Filt Rate - Afr Amer 83 mL/min (>60); Glucose 127 mg/dL (74-106); Potassium 3.9 mmol/L (3.5-5.1); Sodium Level 140 mmol/L (136-145)
== END ==
PROVIDERS: PCP Internal Medicine; Referring Provider Internal Medicine; Visit Provider Internal Medicine
DX: I10 Essential (primary) hypertension (principal)
CPT/HCPCS: 36415; 80048

== ENCOUNTER → 2021-04-06 08:58 | Outpatient (CLI) | payer MEDICARE, SELFPAY ==
[2021-04-06 12:15] LABS: Absolute Lymphocyte Count 1.89 X10^3/uL (0.83-4.51); Absolute Neutrophil Count 2.8 X10^3/uL (2.0-7.7); Basophil# 0.05 X10^3/uL; Basophil% 0.9 % (0-1); Eosinophil# 0.21 X10^3/uL; Eosinophils% 3.7 % (0-5); Hematocrit 39.8 % (37-47); Lymphocyte # 1.89 X10^3/ul (0.83-4.51); Lymphocyte % 33.7 % (19-41); Mean Corp Hgb Conc 32.7 g/dL (32-36); Mean Corpuscular Hgb 29.4 pg (27.0-32.0); Mean Platelet Vol. 11.2 fl (6.2-12.0); Monocyte# 0.62 X10^3/uL; Monocyte% 11.1 % (0-10); NRBC Flagged by Analyzer 0 % (0-5); Neutrophil # 2.79 X10^3/uL (2.7-7.7); Neutrophil % 49.7 % (47-70); Platelet Count 207 K/mm3 (150-450); RBC Distribution Width CV 12.9 % (11.6-14.6); RBC Distribution Width SD 42.4 fl (35.1-43.9); Red Blood Count 4.42 M/mm3 (4.2-5.4); White Blood Count 5.6 K/mm3 (4.4-11.0)
[2021-04-06 12:35] LABS: ALB/GLOB Ratio 0.9 RATIO (0.9-2.4); AST(SGOT) 20 U/L (15-37); Alanine Aminotransfer ALT/SGPT 31 U/L (13-56); Albumin, Serum 3.2 g/dL (3.2-5.0); Alkaline Phosphatase 104 U/L (45-117); Anion Gap 7 (5-15); BUN 15 mg/dL (7-18); BUN/Creat Ratio 17.6 RATIO (10-20); Chloride 103 mmol/L (98-107); Cholesterol 170 mg/dL (200); Creatinine, Serum 0.85 mg/dL (0.55-1.02); EST Glomerular Filtration Rate 69 mL/min (>60); Est Glom Filt Rate - Afr Amer 84 mL/min (>60); Globulin 3.4 g/dL (2.2-4.2); Glucose 145 mg/dL (74-106); High Density Lipoprotein 39 mg/dL; Potassium 3.6 mmol/L (3.5-5.1); Protein, Total 6.6 g/dL (6.4-8.2); Sodium Level 139 mmol/L (136-145); Triglycerides 131 mg/dL; Very Low Density Lipoprotein 26 mg/dL (5-40)
== END ==
PROVIDERS: PCP Internal Medicine; Visit Provider Internal Medicine
DX: I10 Essential (primary) hypertension (principal); E78.5 Hyperlipidemia, unspecified
CPT/HCPCS: 36415; 80053; 80061; 85025

== ENCOUNTER → 2021-08-15 | Outpatient (CLI) | payer MEDICARE, SELFPAY ==
--- NOTE | 2021-08-15 14:07 | US_ITS ---
STUDY: ULTRASOUND BREAST - LEFT REASON FOR EXAM: Female, 75 years old. Palpable lump left breast. TECHNIQUE: Axial and longitudinal images of the LEFT breast were performed with a high resolution ultrasound transducer. # OF IMAGES: 28 COMPARISON: Comparison is made with prior mammogram done earlier today. FINDINGS: LEFT Breast: The upper outer quadrant of the left breast was examined by ultrasound. No breast abnormality is seen. In the left axillary region, multiple small lymph nodes are seen. The largest measures 2.1 cm x 3.5 cm x 1.4 cm. There appears to be fat in the hilum of the lymph node. US/Breast Limited Unilateral IMPRESSION: No sonographic abnormality seen within the breast. Left axillary lymph nodes most likely benign. ASSESSMENT CATEGORY: BIRADS Category 2: Benign. A letter regarding these results will be sent to the patient by the facility within 30 days. Electronically Signed: Andre Brian MD at 15:34 EDT ,
--- NOTE | 2021-08-15 14:36 | BI_ITS ---
MAMMOGRAPHY - BILATERAL DIAGNOSTIC REASON FOR EXAM: Female, 75 years old. Left breast lump. PERTINENT HISTORY: Mother with breast cancer. Grandmother with breast cancer. TECHNIQUE: Digital bilateral breast santa (3D mammographic acquisition) in the CC and MLO projections. 2-D mediolateral oblique (MLO) and craniocaudad (CC) views of both breasts were obtained. CAD: Full Field Digital Mammography with Computer Added Detection was performed. COMPARISON: Comparison is made with prior study dated 09/11/2020 and 09/09/2019. FINDINGS: Breast Composition: The breasts are almost entirely fatty. There are no dominant masses or suspicious calcifications. No other significant abnormalities are identified. There has been no significant change since the prior study. BI/DIAG MAMM W/CAD, BILAT IMPRESSION: Stable bilateral diagnostic mammogram. With the patient''s history of left breast lump, correlation with ultrasound is recommended. ASSESSMENT CATEGORY: BIRADS Category 0: Incomplete. Need additional imaging evaluation. A letter regarding these results will be sent to the patient by the facility within 30 days. Approximately 10% of breast cancers are not detected by mammography. A normal mammogram should not delay biopsy of a clinically suspicious abnormality. Electronically Signed: Andre Brian MD at 15:31 EDT ,
== END | disposition home or self-care (01) ==
LOC: OPBI 14:05
PROVIDERS: PCP Internal Medicine; Visit Provider Physician Assistant
DX: R92.8 Other abnormal and inconclusive findings on diagnostic imaging of breast (principal); N63.21 Unspecified lump in the left breast, upper outer quadrant
CPT/HCPCS: 76642; 77062; 77066; G0279

== ENCOUNTER → 2021-09-03 | Outpatient (CLI) | payer MEDICARE, SELFPAY ==
[2021-09-03 12:22] LABS: Anion Gap 5 (5-15); BUN 16 mg/dL (7-18); BUN/Creat Ratio 19.6 RATIO (10-20); Calcium,Total 9.4 mg/dL (8.5-10.1); Chloride 102 mmol/L (98-107); Creatinine, Serum 0.82 mg/dL (0.55-1.02); EST Glomerular Filtration Rate 73 mL/min (>60); Est Glom Filt Rate - Afr Amer 88 mL/min (>60); Glucose 123 mg/dL (74-106); Potassium 3.5 mmol/L (3.5-5.1); Sodium Level 138 mmol/L (136-145)
== END | disposition home or self-care (01) ==
LOC: BIMLAB 09:14
PROVIDERS: PCP Internal Medicine; Referring Provider Internal Medicine; Visit Provider Internal Medicine
DX: I10 Essential (primary) hypertension (principal); R06.02 Shortness of breath
CPT/HCPCS: 36415; 80048; 83880

== ENCOUNTER → 2021-09-14 | Outpatient (CLI) | payer MEDICARE, SELFPAY ==
[2021-09-14 09:13] LABS: Absolute Lymphocyte Count 2.11 X10^3/uL (0.83-4.51); Absolute Neutrophil Count 3.3 X10^3/uL (2.0-7.7); Basophil# 0.05 X10^3/uL; Basophil% 0.8 % (0-1); Eosinophil# 0.13 X10^3/uL; Eosinophils% 2.1 % (0-5); Hemoglobin 14.1 g/dL (12.0-15.0); Lymphocyte # 2.11 X10^3/ul (0.83-4.51); Lymphocyte % 33.5 % (19-41); Mean Corp Hgb Conc 34.4 g/dL (32-36); Mean Corpuscular Hgb 29.9 pg (27.0-32.0); Mean Corpuscular Volume 86.9 fL (81-99); Mean Platelet Vol. 10.8 fl (6.2-12.0); Monocyte# 0.61 X10^3/uL; Monocyte% 9.7 % (0-10); NRBC Flagged by Analyzer 0 % (0-5); Neutrophil # 3.34 X10^3/uL (2.7-7.7); Neutrophil % 52.9 % (47-70); Platelet Count 203 K/mm3 (150-450); RBC Distribution Width CV 13.3 % (11.6-14.6); RBC Distribution Width SD 42.5 fl (35.1-43.9); Red Blood Count 4.72 M/mm3 (4.2-5.4); White Blood Count 6.3 K/mm3 (4.4-11.0)
== END | disposition home or self-care (01) ==
LOC: PAVLAB 08:54
PROVIDERS: PCP Internal Medicine; Referring Provider Obstetrics & Gynecology; Visit Provider Obstetrics & Gynecology
DX: Z01.419 Encounter for gynecological examination (general) (routine) without abnormal findings (principal)
CPT/HCPCS: 36415; 85025

== ENCOUNTER → 2021-09-18 | Outpatient (CLI) | payer MEDICARE, SELFPAY ==
--- NOTE | 2021-09-18 | IMM_PTH ---
PATIENT: VINAY TALAVERA LOC: [facility] U#:[id number] AGE/SX: 76/F ROOM: RE09/18/[address]: Dr. Andre Machado MD : 1945 BED: DIS: 09/18/2021 SPEC #: [id number] RECD: 09/19/21 14:09 STATUS: VIVEK REQ #: [id number] KATHY: 09/18/21 00:[address]: Andre Machado DEPT: IMMUNOHISTOCHEMISTRY RECD BY: Viktoriya Cramer ENTERED: 09/19/21 14:18 SP TYPE: IMMUNO OTHR DR: Dr. Eboni Katz MD Tissues: Axillary lymph node, NOS Procedures: BCL-2 (add) CD20 (add) CD43 (add) CD45 (add) CD5 (add) CD79A (add) KI-67 (add) CD3 (initial) PHYSICIAN & INSTITUTION [facility] [id number] SPECIMEN INFORMATION: Tissue Source: Left axillary lymph node Clinical Info: Enlarged lymph node left axilla Specimen Number: [id number] CPT code: 82591, 26530 x7 METHODOLOGY: Deparaffinized sections of prefer/formalin-fixed tissue or PAP/DQ stained slides are incubated with monoclonal/polyclonal antibodies/oligonucleotide probes. Localization is made via biotin free immunoperoxidase method. Appropriate controls are performed and reacted as expected. Results on target cell population are indicated in the following table: RESULTS: ANTIBODY / CLONE RESULT CD3 (PS1) positive CD5 (SP10) positive CD20 (L26) positive CD43 (L60) positive CD45 (RP2/18) positive CD79a (11E3) positive BCL-2 (bcl-2/100/D5) positive Ki-67 (30-9) positive, 2% These tests were developed and their performance characteristics determined by [facility]. They may not have been cleared or approved by the U.S. Food and Drug Administration. The FDA has determined that such clearance or approval is not necessary. The above immunohistochemical/dualISH markers are ordered and reviewed by the Pathologist. INTERPRETATION: Left axillary lymph node, biopsy: Polytypic (benign) lymphoid tissue. AM:ashley 09/20/2021
--- NOTE | 2021-09-18 08:05 | LYMN_PTH ---
PATIENT: VINAY TALAVERA LOC: [facility] U#:[id number] AGE/SX: 76/F ROOM: RE09/18/[address]: Dr. Andre Machado MD : 1945 BED: DIS: 09/18/2021 SPEC #: [id number] RECD: 09/18/21 11:05 STATUS: VIVEK BASS #: [id number] KATHY: 09/18/21 08:[address]: Andre Machado DEPT: SURGICAL PATHOLOGY RECD BY: Ulices Olmedo ENTERED: 09/18/21 11:36 SP TYPE: LYMPH NODE OTHR DR: Dr. Eboni Katz MD Tissues: LYMPH NODE BIOPSY Procedures: Surgery Specimen Level IV HEADER OPERATION: Left axillary lymph node biopsy PRE-OP DIAGNOSIS: Enlarged lymph node left axilla TISSUE SUBMITTED: Left axillary lymph node MICROSCOPIC DIAGNOSIS Left axillary lymph node, core biopsy: Polytypic (benign) lymph node. See comment. AM:ashley 09/19/2021 COMMENT Immunohistochemistry ([id number]) supports the above diagnosis. FLOW analysis does not show evidence of B or T cell lymphoma (full report in EMR). MICROSCOPIC DESCRIPTION Slides are reviewed. GROSS DESCRIPTION Received in fixative is one container labeled with the patient's name and designated left axillary lymph node. The specimen consists of three elongated cores of yellow-amin soft tissue. Each core has an average length of 1 cm and maximal diameter of 0.1 cm. Two cores are submitted in one cassette for permanent fixation and processing. One core is preserved in RPMI. / AM:ashley 09/18/2021 TC:5 CPT: 64409
== END | disposition home or self-care (01) ==
LOC: LABSPEC 11:12
PROVIDERS: PCP Internal Medicine; Visit Provider Surgery
DX: R59.0 Localized enlarged lymph nodes (principal)
CPT/HCPCS: 88305; 88341; 88342

== ENCOUNTER → 2022-03-22 | Outpatient (CLI) | payer MEDICARE, SELFPAY ==
[2022-03-22 08:39] LABS: Absolute Lymphocyte Count 2.22 X10^3/uL (0.83-4.51); Absolute Neutrophil Count 3.1 X10^3/uL (2.0-7.7); Basophil# 0.06 X10^3/uL; Eosinophil# 0.15 X10^3/uL; Eosinophils% 2.5 % (0-5); Hematocrit 42.7 % (37-47); Hemoglobin 13.9 g/dL (12.0-15.0); Lymphocyte # 2.22 X10^3/ul (0.83-4.51); Lymphocyte % 36.8 % (19-41); Mean Corp Hgb Conc 32.6 g/dL (32-36); Mean Corpuscular Hgb 29.2 pg (27.0-32.0); Mean Corpuscular Volume 89.7 fL (81-99); Mean Platelet Vol. 10.8 fl (6.2-12.0); Monocyte# 0.48 X10^3/uL; Monocyte% 7.9 % (0-10); NRBC Flagged by Analyzer 0 % (0-5); Neutrophil % 51.3 % (47-70); Platelet Count 223 K/mm3 (150-450); RBC Distribution Width SD 42.9 fl (35.1-43.9); Red Blood Count 4.76 M/mm3 (4.2-5.4)
[2022-03-22 09:13] LABS: AST(SGOT) 17 U/L (15-37); Alanine Aminotransfer ALT/SGPT 29 U/L (13-56); Albumin, Serum 3.5 g/dL (3.2-5.0); Alkaline Phosphatase 97 U/L (45-117); Anion Gap 5 (5-15); BUN 16 mg/dL (7-18); BUN/Creat Ratio 21.1 RATIO (10-20); Calcium,Total 9.2 mg/dL (8.5-10.1); Chloride 102 mmol/L (98-107); Cholesterol 205 mg/dL (200); Creatinine, Serum 0.76 mg/dL (0.55-1.02); EST Glomerular Filtration Rate 79 mL/min (>60); Est Glom Filt Rate - Afr Amer 95 mL/min (>60); Globulin 3.5 g/dL (2.2-4.2); Glucose 124 mg/dL (74-106); High Density Lipoprotein 48 mg/dL; Potassium 3.7 mmol/L (3.5-5.1); Sodium Level 139 mmol/L (136-145); Triglycerides 101 mg/dL; Very Low Density Lipoprotein 20 mg/dL (5-40)
[2022-03-22 17:43] LABS: Hemoglobin A1c 6.1 % (3.8-5.6)
== END | disposition home or self-care (01) ==
LOC: LAB 07:59
PROVIDERS: PCP Internal Medicine; Referring Provider Internal Medicine; Visit Provider Internal Medicine
DX: I10 Essential (primary) hypertension (principal); R73.9 Hyperglycemia, unspecified
CPT/HCPCS: 36415; 80053; 80061; 83036; 85025

== ENCOUNTER 2022-08-23 07:40 | Day surgery (SDC) | payer MEDICARE, SELFPAY ==
[2022-08-23] MEDS: Lactated Ringers 1,000 ML 15 ML IV (08:09)
[2022-08-23 08:10] VITALS: BP 136/68; PULSE 68; RESP 18; TEMP 36.5; BMI 34.3
--- NOTE | 2022-08-23 09:05 | HP.PCM_ITS ---
HPI - General HPI Narrative VINAY TALAVERA, is a 76 F who presents for screening colonoscopy. Her last colonoscopy was 10 years ago and was normal. She denies abdominal pain or blood in the stool or family history of colon cancer. [facility] Medical History (Updated 07/24/22 @ 09:45 by Catherine Knight) Actinic keratosis Arthritis Back problem Bilateral lower extremity edema Borderline type 2 diabetes mellitus Cancer of skin of left ear Cat bite of right hand with infection Cataracts, bilateral Chronic hypertension Chronic sinusitis Chronic vertigo Dupuytren's contracture Flu vaccine need Generalized osteoarthritis GERD (gastroesophageal reflux disease) H/O tinnitus Health care maintenance High cholesterol Hyperglycemia Non-smoker Open cat bite of hand Restless leg syndrome Right hand pain Seasonal allergies Shortness of breath Sinusitis Tinnitus Vertigo Wears dentures Wears glasses Wears partial dentures Home Medications multivitamin with iron 1 tab PO DAILY 03/31/13 [History Last Taken 10/19/19] biotin 2,500 mcg capsule 2,500 mcg PO ONCE 07/15/17 [History Last Taken Unknown] celecoxib 200 mg capsule (Celebrex) 200 mg PO DAILY PRN pain #90 caps 05/21/21 [Rx Last Taken Unknown] aspirin 81 mg capsule 81 mg PO DAILY 09/18/21 [History Last Taken Unknown] oxybutynin chloride 10 mg tablet,extended release 24 hr See Rx Instructions .Route .COMPLEX #90 tabs 10/25/21 [Rx Last Taken Unknown] hydrochlorothiazide 25 mg tablet 25 mg PO DAILY #90 tabs 12/05/21 [Rx Last Taken Unknown] pantoprazole 40 mg tablet,delayed release 40 mg PO DAILY #120 tabs 05/20/22 [Rx Last Taken 08/23/22] amlodipine 5 mg tablet 7.5 mg PO DAILY 3 months #135 tabs 06/13/22 [Rx Last Taken 08/23/22] losartan 50 mg tablet 50 mg PO DAILY 3 months #90 tabs 06/13/22 [Rx Last Taken 08/23/22] potassium chloride 20 mEq tablet,extended release 20 meq PO BID #180 tabs 06/13/22 [Rx Last Taken Unknown] ropinirole 0.5 mg tablet 0.5 mg PO TID #360 tabs 06/13/22 [Rx Last Taken Unknown] Allergy/AdvReac Type Severity Reaction Status Date / Time lisinopril [From Zestril] AdvReac Intermediate Cough Verified 08/23/22 08:09 hydrocodone bitartrate AdvReac Mild Itching Verified 08/23/22 08:09 [From Vicodin] Family History Father Myocardial infarction Heart disease Hypertension Mother Breast cancer Grandmother Breast cancer Sister Lung cancer Seizures Surgical History Cancer of skin of left ear cancer removed Cat bite of right hand including fingers with infection Dupuytren contracture H/O vaginal hysterectomy History of cataract extraction History of colonoscopy History of hysterectomy History of lymph node biopsy History of total right knee replacement S/P appendectomy S/P arthroscopy of knee Social History Smoking Status: Never smoker alcohol intake: never substance use type: does not use caffeine: Yes what type of physical activity do you participate in: none seatbelt use: always do you feel safe at home: Yes additional social history: [facility] SUN EXPOSURE: FREQUENTLY Past Medical/Surgical History Planned Operation Planned Operative Procedure/s: CSCOPE S.O.S: No Previous Hospitalizations/Surgeries HX Hospitalizations: No HX of Surgeries: Hysterectomy appendectomy bilateral bunionectomy Right Knee replacement I&D R HAND 04/05 RELEASE OF DUPUYTREU'S CONTX, EXC LESION L TIP NOSE 2016 Any Problems With Anesthesia: Yes (N/V) You/Your Family Experience Fever (Hyperthermia) With Anes: No Cholinesterase deficiency: No Cardiovascular Hx Chest Pain within Last 2 months: No Hx of Irregular Heartbeat and/or Afib: No Hx Heart Attack: No Hx Congestive Heart Failure: No Hx Rheumatic Fever: No Hx Hypertension: Yes (CONTROLLED WITH MED) Hx Internal Defibrillator: No Hx Pacemaker: No Hx Cardiac Catheterization: No Hx Cardiac Surgery/Stents/Etc.: No Hx Stress Test: Yes (04/02 [facility]) Hx Pain in Legs when Walking/Leg Cramps: Yes Respiratory Chronic Cough: No HX of Shortness of Breath: Yes Hoarseness: No Hx Chronic Obstructive Pulmonary Disease (COPD): No Hx Asthma: No Hx Emphysema: No Hx Sleep Apnea: No CPAP: No BIPAP: No Hx Respiratory Tract Infection/Cold (presently): No Do You Snore Loudly (louder than talking or can be heard): No Do You Often Feel Tired/ Fatigued/ Sleepy Dring Daytime?: No Has Anyone Observed You Stop Breathing During Sleep?: No Result (for STOP score): Negative Hx Smoking: No Smoking Status: Never smoker Gastrointestinal Hx Gastroesophageal Reflux: Yes Controlled With Meds: Yes Hx Gastrointestinal Disorders: Yes (IBS) Hx Gastrointestinal Bleed: No Hx Ulcer: No Hx Hiatal Hernia: No Difficulty Chewing/Swallowing: No Special diet followed at home: No Hx Unplanned Weight Loss of 20#: No HX Unplanned Weight Gain of 20#: No Neurological Hx Seizures: No HX Syncope/Blackout Spells/Unconsciousness: No Hx Transient Ischemic Attacks (TIA): No Hx Multiple Sclerosis: No Hx Parkinson's Disease: No Hx Head/Neck Injury: No Hx Headaches: No Hx Back Injury/Pain: Yes (arthritis L4 from fall) Recent Onset of Speech Difficulty: No Restless Legs: Yes (ON REQUIP) Does patient have nerve stimulator: No Blood Disorder Hx Leukemia: No Bleeding Tendencies: No Hx Deep Vein Thrombosis: No Hx High Cholesterol: No Blood Transmitted Disease: No Hx Hepatitis: No Hx Cirrhosis: No Hx Anemia: No Hx Blood Disorders: No Reproduction : No Is Patient Lactating: No Hx Hysterectomy: No Hx Tubal Ligation: No Are You Post Menopause: Yes Genitourinary Hx Renal Disease: No Hx Dialysis: No Musculoskeletal Hx Arthritis: Yes Hx Rheumatoid Arthritis: No Hx Gout: No Recent Onset of an Orthopedic Problem: No Endocrine Hx Diabetes: No Insulin: No Thyroid Disease: No Hx Steroid Therapy: Yes (CORTISONE INJ L ANKLE) Psycho/Social Hx Substance Use: No Hx Alcohol Use: No Hx Anxiety: Yes Hx Depression: Yes Mental Illness: No Hx Dementia: No Miscellaneous Hx Cancer: Yes (L EAR SKIN CA, MELANOMA) Recent Exposure to Contagious Disease: No Hx of C-Diff: No Any Loose Teeth: Yes (Full upper and lower partial) Allergies lisinopril [From Zestril] Adverse Reaction (Intermediate, Verified 08/23/22 08:09) Cough hydrocodone bitartrate [From Vicodin] Adverse Reaction (Mild, Verified 08/23/22 08:09) Itching Maternal: Family History Father Myocardial infarction Heart disease Hypertension Mother Breast cancer Grandmother Breast cancer Sister Lung cancer Seizures No pertinent history Paternal: Family History Father Myocardial infarction Heart disease Hypertension Mother Breast cancer Grandmother Breast cancer Sister Lung cancer Seizures No pertinent history Discharge Is Pt Admitted From a Halfway, or a [facility]ci: No After D/C, Where Do you Plan to Go: Return Home From the PAT History Number of Risk Factors: 5 Vital Signs Vital Signs Vital Signs: 08/23/22 08:10 08/23/22 08:10 Temperature 97.7 F L Temperature Source Temporal Pulse Rate 68 Respiratory Rate 18 Respiratory Pattern Normal Blood Pressure 136/68 H Blood Pressure Mean 90 Blood Pressure Source Monitor Blood Pressure Position Semi-Fowlers Blood Pressure Location Right Arm Oxygen Delivery Method Room Air Weight Weight: 213 lb Body Mass Index (BMI) 34.3 Physical Exam Const alert and oriented x3 HEENT normocephalic Eyes PERRL Resp normal respiratory effort and normal air movement Cardio regular rate and regular rhythm GI soft to palpation, non-tender and non-distended Extremity normal to inspection Assessment & Plan Assessment/Plan (1) Encounter for screening for malignant neoplasm of colon: PLAN: I explained endoscopy in detail to the patient. I explained the risks including but not limited to stroke or heart attack with anesthesia, perforation of the GI tract, bleeding, infection. I explained that any of these could necessitate further emergency surgery. The patient understands and all questions were answered sufficiently. The patient wishes to proceed with procedure. Andre Machado MD Pager: [facility] [address] [place] [address], [address] [place] [address] Office: Surgery Risks - Colonoscopy Risks Include but are not Limited To: Risks include but are not limited to: Bleeding, perforation requiring further surgery, inability to complete colonoscopy requiring barium enema.
[2022-08-23 09:30] VITALS: BP 136/68; BP 95/51; PULSE 72; RESP 16; TEMP 36.3; O2SAT 92
[2022-08-23 09:35] VITALS: BP 105/55; BP 136/68; PULSE 68; RESP 16; O2SAT 99
--- NOTE | 2022-08-23 09:35 | OP.COLON_ITS ---
Patient Name: Georgia Ro Procedure Date: 08/23/2022 9:07 AM Date of : 1945 Age: 76 Procedure: Colonoscopy Indications: Screening for colorectal malignant neoplasm Providers: Andre Machado MD Medicines: Monitored Anesthesia Care Patient Profile: Last Colonoscopy: 10 years ago. Complications: No immediate complications. Estimated blood loss: Minimal. Procedure: Pre-Anesthesia Assessment: - Prior to the procedure, a History and Physical was performed, and patient medications and allergies were reviewed. The patient's tolerance of previous anesthesia was also reviewed. The risks and benefits of the procedure and the sedation options and risks were discussed with the patient. All questions were answered, and informed consent was obtained. Prior Anticoagulants: The patient has taken no previous anticoagulant or antiplatelet agents. After reviewing the risks and benefits, the patient was deemed in satisfactory condition to undergo the procedure. After I obtained informed consent, the scope was passed under direct vision. Throughout the procedure, the patient's blood pressure, pulse, and oxygen saturations were monitored continuously. The colonoscope was introduced through the anus and advanced to the sigmoid colon. The colonoscopy was extremely difficult due to restricted mobility of the colon. The patient tolerated the procedure well. The quality of the bowel preparation was good. Scope In: 9:14:26 AM Scope Out: 9:25:41 AM Total Procedure Duration Time 0 hours 11 minutes 15 seconds Findings: The perianal and digital rectal examinations were normal. Impression: - No specimens collected. Recommendation: - Discharge patient to home. - Resume previous diet. - Continue present medications. - Repeat colonoscopy is not recommended because the examination was incomplete. Procedure Code(s): --- Professional --- 34991, 53, Colonoscopy, flexible; diagnostic, including collection of specimen(s) by brushing or washing, when performed (separate procedure) Diagnosis Code(s): --- Professional --- Z12.11, Encounter for screening for malignant neoplasm of colon CPT copyright 2017 [employer]. All rights reserved. The codes documented in this report are preliminary and upon cork compounder review may be revised to meet current compliance requirements. Andre Machado MD 08/23/2022 9:34:21 AM This report has been signed electronically. Number of Addenda: 0 Note Initiated On: 08/23/2022 9:07 AM
--- NOTE | 2022-08-23 09:35 | OP.CCLET_ITS ---
08/23/2022 Eboni Katz MD [address] [place] [address] [place] [address] Re : Colonoscopy procedure for Georgia Ro Dear Dr. Katz This procedure was performed on Tuesday, August 23, 2022. My impressions and recommendations are as follows: Impressions : - No specimens collected. Recommendations : - Discharge patient to home. - Resume previous diet. - Continue present medications. - Repeat colonoscopy is not recommended because the examination was incomplete. My findings are described in the full procedure note, which is enclosed. If I can be of further assistance, please feel free to contact me at Doctor phone number(s): , Work: . Sincerely, Andre Machado MD 08/23/2022 9:34:21 AM This report has been signed electronically.
[2022-08-23 09:40] VITALS: BP 112/58; BP 136/68; PULSE 69; RESP 16; O2SAT 99
[2022-08-23 09:45] VITALS: BP 110/64; BP 136/68; PULSE 70; RESP 16; TEMP 36.3; O2SAT 98
[2022-08-23 10:05] VITALS: BP 136/68
== END 2022-08-23 10:17 | disposition home or self-care (01) ==
LOC: EN 07:42 → AC 07:45
PROVIDERS: PCP Internal Medicine; Referring Provider Internal Medicine; Visit Provider Surgery
PROC: 0DJD8ZZ Inspection of Lower Intestinal Tract, Via Natural or Artificial Opening Endoscopic (ICD-10-PCS; CPT 45378; principal; 2022-08-23 08:55)
DX: Z12.11 Encounter for screening for malignant neoplasm of colon (principal); I10 Essential (primary) hypertension; E78.00 Pure hypercholesterolemia, unspecified; Z79.899 Other long term (current) drug therapy
CPT/HCPCS: G0121; J7120; J2405

== ENCOUNTER → 2022-10-07 | Outpatient (CLI) | payer MEDICARE, SELFPAY ==
[2022-10-07 12:31] LABS: Anion Gap 6 (5-15); BUN 21 mg/dL (7-18); BUN/Creat Ratio 23.1 RATIO (10-20); Calcium,Total 9.5 mg/dL (8.5-10.1); Chloride 103 mmol/L (98-107); Creatinine, Serum 0.91 mg/dL (0.55-1.02); EST Glomerular Filtration Rate 64 mL/min (>60); Est Glom Filt Rate - Afr Amer 78 mL/min (>60); Glucose 148 mg/dL (74-106); Potassium 3.6 mmol/L (3.5-5.1); Sodium Level 138 mmol/L (136-145)
[2022-10-07 14:02] LABS: Hemoglobin A1c 6.1 % (3.8-5.6)
== END | disposition home or self-care (01) ==
LOC: BIMLAB 08:30
PROVIDERS: PCP Internal Medicine; Referring Provider Internal Medicine; Visit Provider Internal Medicine
DX: I10 Essential (primary) hypertension (principal); R73.03 Prediabetes
CPT/HCPCS: 36415; 80048; 83036

== ENCOUNTER → 2022-10-24 | Outpatient (CLI) | payer MEDICARE, SELFPAY ==
--- NOTE | 2022-10-24 07:59 | BI_ITS ---
MAMMOGRAPHY - BILATERAL SCREENING REASON FOR EXAM: Female, 77 years old. Routine annual screening examination. PERTINENT HISTORY: Mother with breast cancer. Grandmother with breast cancer. TECHNIQUE: Digital bilateral breast santa (3D mammographic acquisition) in the CC and MLO projections. 2-D mediolateral oblique (MLO) and craniocaudad (CC) views of both breasts were obtained. CAD: Full Field Digital Mammography with Computer Added Detection was performed. COMPARISON: Comparison is made with prior examination of September 11, 2020 and August 15, 2021. FINDINGS: Breast Composition: The breasts are almost entirely fatty. There are no dominant masses or suspicious calcifications. No other significant abnormalities are identified. There has been no significant change since the prior study.
== END | disposition home or self-care (01) ==
LOC: OPBI 07:58
PROVIDERS: PCP Internal Medicine; Referring Provider Internal Medicine; Visit Provider Internal Medicine
DX: Z12.31 Encounter for screening mammogram for malignant neoplasm of breast (principal); Z80.3 Family history of malignant neoplasm of breast
CPT/HCPCS: 77063; 77067

== ENCOUNTER → 2023-03-28 | Outpatient (CLI) | payer MEDICARE, SELFPAY ==
--- NOTE | 2023-03-28 07:44 | US_ITS ---
STUDY: SUPERFICIAL ULTRASOUND - LEFT AXILLA REASON FOR EXAM: Female, 77 years old. enlarged left axillary lymph node -- special attention to left axillary TECHNIQUE: A superficial ultrasound was performed with real-time and static burnett-scale imaging. COMPARISON: None. FINDINGS: Multiple longitudinal and transverse ultrasound images of the left axilla confirms multiple oval masses most of which are heterogeneous and slightly hyperechoic which may represent lymphadenopathy. These measure 1.6 x 2.8 cm, 1.5 x 1.5 cm, 1.7 x 2.7 cm, and 1.3 x 2.2 cm. US/Ext Non Vasc Limited/Soft Tiss IMPRESSION: Suspect echogenic left axillary lymphadenopathy. Electronically Signed: Matias Muller MD at 19:47 EST ,
== END | disposition home or self-care (01) ==
LOC: US 07:39
PROVIDERS: PCP Internal Medicine; Referring Provider Surgery; Visit Provider Surgery
DX: M79.622 Pain in left upper arm (principal); R59.1 Generalized enlarged lymph nodes
CPT/HCPCS: 76882

== ENCOUNTER → 2023-05-14 | Outpatient (CLI) | payer MEDICARE, SELFPAY ==
--- OUTSIDE RECORDS SUMMARY | 2023-05-14 09:16 | XMS RPT_ITS | CCD ---
Author Name Unknown Address [address] [place] [address] Organization [facility] Care Team Providers Care Car Chaser Name Role Phone Brennen Hopper MD Unavailable KAMERON BERNARDO ([facility]) Unavailable Unavailable Allergies Allergy Classification Reported Allergen(s) Allergy Type Date of Onset Reaction(s) Facility (1 source) acetaminophen / HYDROcodone Drug Allergy 6 red-itchy [facility] Work Phone: (1 source) lisinopril Drug Allergy 6 cough [facility] Work Phone: (1 source) Acetaminophen / HYDROcodone; Translations: [HYDROCODONE-ACET AMINOPHEN] Drug Allergy [facility] Repository (1 source) Lisinopril; Translations: [LISINOPRIL] Drug Allergy 5 [facility] Repository (1 source) OTHER; Translations: [OTHER] Propensity to adverse reactions (disorder) 6 [facility] Repository Medications Completed/Discontinued Medications Medication Drug Class(es) Dates Sig (Normalized) Sig (Original) acetaminophen 325 mg / oxyCODONE hydrochloride 5 mg oral tablet (2 sources) Opioid Agonist Start: 05-22-2016 End: 06-26-2016 take 1 tablet by mouth four times daily as needed for pain PERCOCET 5-325 MG TABS One tablet by mouth four times daily as needed for pain OXYCODONE-ACETAMIN OPHEN [id number] Brennen Hopper MD gabapentin 100 mg oral capsule (4 sources) Anti-epileptic Agent Start: 05-22-2016 End: 06-26-2016 take 1 tablet by mouth three times daily NEURONTIN 100 MG CAPS One tablet by mouth three times daily [facility] [id number] Brennen Hopper MD Problems Active Problems Problem Classification Problem Date Documented Da te Episodic/Chronic External Injury - Natural / Environment (2 sources) Bitten by cat, subsequent encounter; Translations: [Bitten by cat, initial encounter] Onset: 04-09-2016 05-08-2016 Other non-traumatic joint disorders (1 source) Effusion, left ankle; Translations: [Effusion, left ankle] Onset: 03-31-2018 Episodic Unclassified (1 source) Aftercare ; Translations: [Encounter for other specified surgical aftercare] Onset: 04-09-2016 04-22-2016 Past or Other Problems Problem Classification Problem Date Documented Da te Episodic/Chronic Neoplasms of unspecified nature or uncertain behavior (5 sources) Neoplasm of soft tissue; 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] Onset: 05-22-2016 02-10-2017 Episodic Open wounds of extremities (4 sources) Open bite of right hand, subsequent encounter; Translations: [Unspecified open wound of right hand, subsequent encounter] Onset: 04-09-2016 05-08-2016 Episodic Other connective tissue disease (1 source) Dupuytren's contracture ; Translations: [Palmar fascial fibromatosis [Dupuytren]] Onset: 05-08-2016 05-17-2016 Episodic Other non-epithelial cancer of skin (1 source) History of malignant neoplasm of skin; Translations: [Personal history of other malignant neoplasm of skin] Onset: 05-22-2016 06-11-2016 Episodic Other skin disorders (2 sources) Actinic keratosis; Translations: [Disorder of skin] Onset: 05-22-2016 01-06-2017 Episodic Skin and subcutaneous tissue infections (1 source) Cellulitis of hand; Translations: [Cellulitis of right upper limb] Onset: 04-09-2016 04-22-2016 Episodic Results Test Name Value Interpretation Reference Range Facil ity Vital Signs Date Time Vital Sign Value Performing Clinician Felipe byrd 02-05-2017 08:08-0400 BMI (Body Mass Index) 31.19 kg/m2 [facility] Work Phone: 02-05-2017 08:08-0400 Body Temperature 96.7 [degF] [facility] Work Phone: 02-05-2017 08:08-0400 BP Diastolic 80 mm[Hg] Brennen Hopper MD [facility] Work Phone: 02-05-2017 08:08-0400 BP Systolic 132 mm[Hg] Brennen Hopper MD [facility] Work Phone: 02-05-2017 08:08-0400 BSA (Body Surface Area) 2.09 m2 Brennen Hopper MD [facility] Work Phone: 02-05-2017 08:08-0400 Height 173.99 cm Brennen Hopper MD [facility] Work Phone: 02-05-2017 08:08-0400 Pulse (Heart Rate) 79 /min [facility] Work Phone: 02-05-2017 08:08-0400 Respiratory Rate 16 /min Brennen Hopper MD [facility] Work Phone: 02-05-2017 08:08-0400 Weight 94.44 kg Brennen Hopper MD [facility] Work Phone: Encounters Encounter Date Encounter Type Care Provider Facility Start: 03-31-2018 Patient encounter procedure KAMERON (DISPLAY SPECIALIST) [facility] Procedures Date Procedure Procedure Detail Performing Clinician Start: 02-05-2017 End: 02-25-2017 Follow Up Appt 6 weeks Brennen Hopper MD Start: 01-06-2017 End: 02-25-2017 Follow Up Appt 1 month Brennen Hopper MD Start: 12-25-2016 End: 02-25-2017 Follow up Appt 1 week Brennen Hopper MD Start: 12-05-2016 End: 12-25-2016 Follow Up Appt Other Brennen Hopper MD Start: 07-10-2016 End: 07-12-2016 Follow Up Appt 6 months Brennen Hopper MD Start: 06-26-2016 End: 07-12-2016 Follow Up Appt 2 weeks Brennen Hopper MD Start: 06-05-2016 End: 07-12-2016 Follow up Appt 3 weeks Brennen Hopper MD Start: 05-22-2016 End: 07-12-2016 Follow Up Appt 2 weeks Brennen Hopper MD Start: 05-08-2016 End: 05-17-2016 Follow Up Appt 2 weeks Brennen Hopper MD Start: 04-24-2016 End: 05-17-2016 Follow Up Appt 2 weeks Brennen Hopper MD Start: 04-09-2016 End: 05-17-2016 Follow Up Appt 2 weeks Brennen Hopper MD Plan of Treatment Date Care Activity Detail Author Start: 02-05-2017 End: 02-25-2017 Follow Up Appt 6 weeks Follow Up Appt 6 weeks [facility] Work Phone: Start: 01-06-2017 End: 02-25-2017 Follow Up Appt 1 month Follow Up Appt 1 month [facility] Work Phone: Start: 12-25-2016 End: 02-25-2017 Follow up Appt 1 week Follow up Appt 1 week [facility] Work Phone: Start: 12-25-2016 End: 12-25-2016 OT[facility]Hand [facility] [address] [place] [address], [id number] [facility] Work Phone: Start: 12-05-2016 End: 12-25-2016 Follow Up Appt Other Follow Up Appt Other [facility] Work Phone: Start: 07-10-2016 End: 07-12-2016 Follow Up Appt 6 months Follow Up Appt 6 months [facility] Work Phone: Start: 06-26-2016 End: 07-12-2016 Follow Up Appt 2 weeks Follow Up Appt 2 weeks [facility] Work Phone: Start: 06-05-2016 End: 07-12-2016 Follow up Appt 3 weeks Follow up Appt 3 weeks [facility] Work Phone: Start: 05-22-2016 End: 07-12-2016 Follow Up Appt 2 weeks Follow Up Appt 2 weeks [facility] Work Phone: Start: 05-08-2016 End: 05-17-2016 Follow Up Appt 2 weeks Follow Up Appt 2 weeks [facility] Work Phone: Start: 04-24-2016 End: 05-17-2016 Follow Up Appt 2 weeks Follow Up Appt 2 weeks [facility] Work Phone: Start: 04-09-2016 End: 05-17-2016 Follow Up Appt 2 weeks Follow Up Appt 2 weeks [facility] Work Phone: Patient Education [facility] Work Phone: Summary Purpose Family History No Family History Records FoundNo Family History Records FoundNo Family History Records Found Advance Directives No Advanced Directives Records FoundNo Advanced Directives Records FoundNo Advanced Directives Records Found Additional Source Comments INFORMATION SOURCE (unrecogn ized section and content) DATE CREATED AUTHOR AUTHOR'S ORGANIZ ATION 04/03/2018 [facility] DATE CREATED AUTHOR AUTHOR'S ORGANIZ ATION 03/15/2019 [facility] FOR RECORDS PERTAINING TO PATIENTS WHO ARE OR HAVE BEEN ENROLLED IN A CHEMICAL DEPENDENCY/SUBSTANCEABUSE PROGRAM, SOME INFORMATION MAY BE OMITTED. This clinical summary was aggregated from multiple sources. Caution should be exercised in using it in the provision of clinical care. This summary normalizes information from multiple sources, and as a consequence, information in this document may materially change the coding, format and clinical context of patient data. In addition, data may be omitted in some cases. CLINICAL DECISIONS SHOULD BE BASED ON THE PRIMARY CLINICAL RECORDS. [employer] [facility]. provides no warranty or guarantee of the accuracy or completeness of information in this document.
[2023-05-14 12:39] LABS: Absolute Lymphocyte Count 2.11 X10^3/uL (0.83-4.51); Absolute Neutrophil Count 3.5 X10^3/uL (2.0-7.7); Basophil# 0.07 X10^3/uL; Basophil% 1.1 % (0-1); Eosinophil# 0.11 X10^3/uL; Eosinophils% 1.7 % (0-5); Hematocrit 43.5 % (37-47); Lymphocyte # 2.11 X10^3/ul (0.83-4.51); Lymphocyte % 33.1 % (19-41); Mean Corp Hgb Conc 32.2 g/dL (32-36); Mean Corpuscular Hgb 29.2 pg (27.0-32.0); Mean Corpuscular Volume 90.8 fL (81-99); Monocyte# 0.58 X10^3/uL; Monocyte% 9.1 % (0-10); NRBC Flagged by Analyzer 0 % (0-5); Neutrophil # 3.47 X10^3/uL (2.7-7.7); Neutrophil % 54.5 % (47-70); Platelet Count 250 K/mm3 (150-450); RBC Distribution Width CV 13.1 % (11.6-14.6); RBC Distribution Width SD 43.8 fl (35.1-43.9); Red Blood Count 4.79 M/mm3 (4.2-5.4); White Blood Count 6.4 K/mm3 (4.4-11.0)
[2023-05-14 13:39] LABS: ALB/GLOB Ratio 0.9 RATIO (0.9-2.4); AST(SGOT) 20 U/L (15-37); Alanine Aminotransfer ALT/SGPT 22 U/L (13-56); Albumin, Serum 3.4 g/dL (3.2-5.0); Alkaline Phosphatase 80 U/L (45-117); Anion Gap 5 (5-15); BUN 17 mg/dL (7-18); BUN/Creat Ratio 21.7 RATIO (10-20); Calcium,Total 9.4 mg/dL (8.5-10.1); Chloride 105 mmol/L (98-107); Cholesterol 189 mg/dL (200); Creatinine, Serum 0.78 mg/dL (0.55-1.02); EST Glomerular Filtration Rate 76 mL/min (>60); Est Glom Filt Rate - Afr Amer 92 mL/min (>60); Globulin 3.6 g/dL (2.2-4.2); Glucose 106 mg/dL (74-106); High Density Lipoprotein 44 mg/dL; Potassium 3.9 mmol/L (3.5-5.1); Sodium Level 137 mmol/L (136-145); Triglycerides 140 mg/dL; Very Low Density Lipoprotein 28 mg/dL (5-40)
== END | disposition home or self-care (01) ==
LOC: BIMLAB 08:51
PROVIDERS: PCP Internal Medicine; Referring Provider Internal Medicine; Visit Provider Internal Medicine
DX: I10 Essential (primary) hypertension (principal); R73.03 Prediabetes
CPT/HCPCS: 36415; 80053; 80061; 83036; 85025

== ENCOUNTER 2023-05-21 07:03 | Day surgery (SDC) | payer MEDICARE, SELFPAY ==
[2023-05-21] VITALS (7 sets, daily range): BP systolic 105–138; BP diastolic 63–95; PULSE 73–82; RESP 16–17; TEMP 36.1–36.6; O2SAT 95–100; BMI 33.4
--- NOTE | 2023-05-21 | IMM_PTH ---
PATHOLOGY RESULTS PATIENT: VINAY TALAVERA [place] [facility] [id number] AGE/SX: 77/F ROOM: RE05/21/[address]: Dr. Andre Machado MD : 1945 BED: DIS: 05/21/2023 SPEC #: [id number] RECD: 05/23/23 12:31 STATUS: VIVEK REQ #: [id number] KATHY: 05/21/23 00:[address]: Andre Machado DEPT: IMMUNOHISTOCHEMISTRY RECD BY: Viktoriya Cramer ENTERED: 05/23/23 12:33 SP TYPE: IMMUNO OTHR DR: Dr. Eboni Katz MD Tissues: Axillary lymph node, NOS Procedures: BCL-2 (add) BCL-6 (add) CD10 (add) CD138 (add) CD15 (add) CD20 (add) CD23 (add) CD3 (add) CD30 (add) CD43 (add) CD45 (add) CD5 (add) CD79A (add) CYCLIN (add) KAPPA (add) KI-67 (add) LAMBDA (add) MUM1 (add) C-MYC (add) Pankeratin (initial) PHYSICIAN & [place] [id number] SPECIMEN INFORMATION: Tissue Source: Left axillary lymph node Clinical Info: Left axillary pain, lymphadenopathy Specimen Number: [id number] #5 CPT code: 12055, 29180 x19 METHODOLOGY: Deparaffinized sections of prefer/formalin-fixed tissue or PAP/DQ stained slides are incubated with monoclonal/polyclonal antibodies/oligonucleotide probes. Localization is made via biotin free immunoperoxidase method. Appropriate controls are performed and reacted as expected. Results on target cell population are indicated in the following table: RESULTS: ANTIBODY / CLONE RESULT Block 5 AE1-3 (AE1/AE3/PCK26) negative CD3 (PS1) positive CD5 (SP10) positive CD10 (56C6) negative CD15 (MMA) negative CD20 (L26) positive CD23 (1B12) negative CD30 (Wesley-H2) negative CD43 (L60) positive CD45 (RP2/18) positive CD79a (11E3) positive CD138 (B-A38) negative BCL-2 (bcl-2/100/D5) positive BCL-6 (AI763K/A8) negative Cyclin D1/BCL-1 (SP4) negative MUM1 (MRQ-43) negative C-MYC (Y69) negative [place] (polyclonal) negative Lambda (polyclonal) negative Ki-67 (30-9) positive, low These tests were developed and their performance characteristics determined by [facility]. They may not have been cleared or approved by the U.S. Food and Drug Administration. The FDA has determined that such clearance or approval is not necessary. The above immunohistochemical/dualISH markers are ordered and reviewed by the Pathologist. INTERPRETATION: Left axillary lymph node, biopsy: No evidence of lymphoproliferative disorder. AM:ashley 05/26/2023
--- NOTE | 2023-05-21 | AXNB_PTH ---
PATHOLOGY RESULTS PATIENT: VINAY TALAVERA LOC: [facility] [place] U#:[id number] AGE/SX: 77/F ROOM: RE05/21/[address]: Dr. Andre Machado MD : 1945 BED: DIS: 05/21/2023 SPEC #: [id number] RECD: 05/21/23 08:43 STATUS: VIVEK REMichel #: [id number] KATHY: 05/21/23 00:[address]: Andre Machado DEPT: SURGICAL PATHOLOGY RECD BY: Viktoriya Cramer ENTERED: 05/21/23 10:35 SP TYPE: AX NODE BX OTHR DR: Dr. 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 See comment. AM:ashley 05/26/2023 COMMENT The specimen is evaluated at the time of touch imprints by Dr. Rainey. Immediate Evaluation = Numerous lymphocytes are noted. 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 Immunohistochemistry ([id number]) shows a polytypic lymphocytic population. Clinical correlation is necessary. The complete flow analysis report is viewable in EMR. Case has been reviewed in consultation with Dr. Rainey who concurs with the above diagnosis. IDC:[id number] MICROSCOPIC DESCRIPTION Slides are reviewed. GROSS DESCRIPTION Received fresh for lymphoma protocol labeled with the patient's name is a specimen designated left axillary lymph node. The specimen consists of two ovoid pieces of amin-pink nodule measuring 3.0 x 2.5 x 1.5 cm and 1.5 x 1.0 x 0.5 cm. Both pieces are serially sectioned and reveal fatty cut surfaces. Sections from both lymph nodes are submitted for flow cytometry studies. Two touch imprints are prepared. The entire specimen is submitted in five cassettes. Sections will be submitted after additional fixation. / NICOLE:ashley 05/21/2023 TC:? CPT: 83964, 64480
--- OUTSIDE RECORDS SUMMARY | 2023-05-21 07:09 | XMS RPT_ITS | CCD ---
Author Name Unknown Address [address] [place] [address] Organization [facility] Care Team Providers Care Roads Superintendent Name Role Phone Brennen Hopper MD Unavailable KAMERON BERNARDO ([facility]) Unavailable Unavailable Allergies Allergy Classification Reported Allergen(s) Allergy Type Date of Onset Reaction(s) Facility (1 source) acetaminophen / HYDROcodone Drug Allergy 6 red-itchy [facility] Work Phone: (1 source) lisinopril Drug Allergy 6 cough [facility] Work Phone: (1 source) Acetaminophen / HYDROcodone; Translations: [HYDROCODONE-ACET AMINOPHEN] Drug Allergy 5 [facility] Repository (1 source) Lisinopril; Translations: [LISINOPRIL] Drug Allergy 5 [facility] Repository (1 source) OTHER; Translations: [OTHER] Propensity to adverse reactions (disorder) 6 [facility] Repository Medications Completed/Discontinued Medications Medication Drug Class(es) Dates Sig (Normalized) Sig (Original) acetaminophen 325 mg / oxyCODONE hydrochloride 5 mg oral tablet (2 sources) Opioid Agonist Start: 05-22-2016 End: 06-26-2016 take 1 tablet by mouth four times daily as needed for pain PERCOCET 5-325 MG TABS One tablet by mouth four times daily as needed for pain OXYCODONE-ACETAMIN OPHEN [id number] Brennen Hopper MD gabapentin 100 mg oral capsule (4 sources) Anti-epileptic Agent Start: 05-22-2016 End: 06-26-2016 take 1 tablet by mouth three times daily NEURONTIN 100 MG CAPS One tablet by mouth three times daily [facility] [id number] Brennen Hopper MD Problems Active Problems Problem [...] BP Diastolic 80 mm[Hg] Brennen Hopper MD [facility] Work Phone: 02-05-2017 08:08-0400 BP Systolic 132 mm[Hg] Brennen Hopper MD [facility] Work Phone: 02-05-2017 08:08-0400 BSA (Body Surface Area) 2.09 m2 Brennen Hopper MD [facility] Work Phone: 02-05-2017 08:08-0400 Height 173.99 cm Brennen Hopper MD [facility] Work Phone: 02-05-2017 08:08-0400 Pulse (Heart Rate) 79 /min [facility] Work Phone: 02-05-2017 08:08-0400 Respiratory Rate 16 /min Brennen Hopper MD [facility] Work Phone: 02-05-2017 08:08-0400 Weight 94.44 kg Brennen Hopper MD [facility] Work Phone: Encounters Encounter Date Encounter Type Care Provider Facility Start: 03-31-2018 Patient encounter procedure KAMERON ([employer] ASSEMBLER) [facility] Procedures Date Procedure Procedure Detail Performing Clinician [...] 6 weeks Follow Up Appt 6 weeks [facility] Work Phone: Start: 01-06-2017 End: 02-25-2017 Follow Up Appt 1 month Follow Up Appt 1 month [facility] Work Phone: Start: 12-25-2016 End: 02-25-2017 Follow up Appt 1 week Follow up Appt 1 week [facility] Work Phone: Start: 12-25-2016 End: 12-25-2016 [facility], [address] [place] [address], [id number] [facility] Work Phone: Start: 12-05-2016 End: 12-25-2016 Follow Up Appt Other Follow Up Appt Other [facility] Work Phone: Start: 07-10-2016 End: 07-12-2016 Follow Up Appt 6 months Follow Up Appt 6 months [facility] Work Phone: Start: 06-26-2016 End: 07-12-2016 Follow Up Appt 2 weeks Follow Up Appt 2 weeks [facility] Work Phone: Start: 06-05-2016 End: 07-12-2016 Follow up Appt 3 weeks Follow up Appt 3 weeks [facility] Work Phone: Start: 05-22-2016 End: 07-12-2016 Follow Up Appt 2 weeks Follow Up Appt 2 weeks [facility] Work Phone: Start: 05-08-2016 End: 05-17-2016 Follow Up Appt 2 weeks Follow Up Appt 2 weeks [facility] Work Phone: Start: 04-24-2016 End: 05-17-2016 Follow Up Appt 2 weeks Follow Up Appt 2 weeks [facility] Work Phone: Start: 04-09-2016 End: 05-17-2016 Follow Up Appt 2 weeks Follow Up Appt 2 weeks [facility] Work Phone: Patient Education [facility] Work Phone: Summary Purpose Family History No Family History Records FoundNo Family History Records FoundNo Family History Records Found Advance Directives No Advanced Directives Records FoundNo Advanced Directives Records FoundNo Advanced Directives Records Found Additional Source Comments INFORMATION SOURCE (unrecogn ized section and content) DATE CREATED AUTHOR AUTHOR'S ORGANIZ ATION 04/03/2018 [facility] DATE CREATED AUTHOR AUTHOR'S ORGANIZ ATION 03/15/2019 [facility] FOR RECORDS PERTAINING TO PATIENTS WHO ARE [...] BE BASED ON THE PRIMARY CLINICAL RECORDS. [employer] [facility]. provides no warranty or guarantee of the accuracy or completeness of information in this document.
[2023-05-21] MEDS: Lactated Ringers 1,000 ML 15 ML IV (07:35)
--- NOTE | 2023-05-21 08:00 | HP.PCM.SX_ITS ---
HPI - General HPI Narrative VINAY TALAVERA, is a 77 F who presents for excisional biopsy of left axillary lymph node. The patient had lymph node biopsy about a year ago and which was normal. She has been having pain ever since and she had repeat imaging that showed enlargement of her lymph nodes on her left side. [facility] Medical History Actinic keratosis Arthritis Back problem Bilateral lower extremity edema Borderline type 2 diabetes mellitus Cancer of skin of left ear Cat bite of right hand with infection Cataracts, bilateral Chronic hypertension Chronic sinusitis Chronic vertigo Dupuytren's contracture Flu vaccine need Generalized osteoarthritis GERD (gastroesophageal reflux disease) H/O tinnitus Health care maintenance High cholesterol Hyperglycemia Non-smoker Open cat bite of hand Restless leg syndrome Right hand pain Seasonal allergies Shortness of breath Sinusitis Tinnitus Vertigo Wears dentures Wears glasses Wears partial dentures Home Medications multivitamin with iron 1 tab PO DAILY 03/31/13 [History Last Taken 05/20/23] biotin 2,500 mcg capsule 2,500 mcg PO ONCE 07/15/17 [History Last Taken 05/20/23] celecoxib 200 mg capsule (Celebrex) 200 mg PO DAILY PRN pain #90 caps 05/21/21 [Rx Last Taken 05/20/23] aspirin 81 mg capsule 81 mg PO DAILY 09/18/21 [History Last Taken 05/14/23] amlodipine 5 mg tablet 7.5 mg (1.5 x 5 mg) PO DAILY 3 months #135 tabs 06/13/22 [Rx Last Taken 05/21/23] losartan 50 mg tablet 50 mg PO DAILY 3 months #90 tabs 06/13/22 [Rx Last Taken 05/21/23] ropinirole 0.5 mg tablet 0.5 mg PO TID #360 tabs 06/13/22 [Rx Last Taken 05/20/23] hydrochlorothiazide 25 mg tablet See Rx Instructions .Route .COMPLEX #90 tabs 08/29/22 [Rx Last Taken 05/20/23] oxybutynin chloride 10 mg tablet,extended release 24 hr See Rx Instructions .Route .COMPLEX #90 tabs 10/07/22 [Rx Last Taken 05/20/23] potassium chloride 20 mEq tablet,extended release 20 meq PO BID #180 tabs 01/13/23 [Rx Last Taken 05/20/23] Allergy/AdvReac Type Severity Reaction Status Date / Time lisinopril [From Zestril] AdvReac Intermediate Cough Verified 05/21/23 07:35 hydrocodone bitartrate AdvReac Mild Itching Verified 05/21/23 07:35 [From Vicodin] Family History Father Myocardial infarction Heart disease Hypertension Mother Breast cancer Grandmother Breast cancer Sister Lung cancer Seizures Surgical History Cancer of skin of left ear cancer removed Cat bite of right hand including fingers with infection Dupuytren contracture H/O vaginal hysterectomy History of cataract extraction History of colonoscopy History of hysterectomy History of left knee replacement History of lymph node biopsy History of total right knee replacement S/P appendectomy S/P arthroscopy of knee Social History Smoking Status: Never smoker alcohol intake: never substance use type: does not use caffeine: Yes what type of physical activity do you participate in: none seatbelt use: always do you feel safe at home: Yes additional social history: [facility] SUN EXPOSURE: FREQUENTLY ROS Constitutional Constitutional: Denies anorexia, chills or fatigue Eyes Eyes: Denies blurry vision ENT HEENT: Denies abnormal hearing Cardiovascular Cardiovascular: Denies chest pain Respiratory/Chest Respiratory/Chest: Denies cough Gastrointestinal Gastrointestinal: Denies abdominal pain, melena or nausea Genitourinary Genitourinary: Denies change in urinary stream Musculoskeletal Musculoskeletal: Denies abnormal gait Integumentary Integumentary: Denies jaundice Neurologic Neurologic: Denies abnormal gait Vital Signs Vital Signs Vital Signs: 05/21/23 07:37 05/21/23 07:37 Temperature 97.9 F Temperature Source Temporal Pulse Rate 76 Respiratory Rate 17 Respiratory Pattern Normal Blood Pressure 138/65 H Blood Pressure Mean 89 Blood Pressure Source Monitor Blood Pressure Position Semi-Fowlers Blood Pressure Location Left Arm Pulse Ox 100 Oxygen Delivery Method Room Air Weight Weight: 207 lb 3.752 oz Body Mass Index (BMI) 33.4 Physical Exam Const oriented x3 and no apparent distress Resp normal respiratory effort GI soft to palpation and non-tender Assessment & Plan Assessment/Plan (1) Left axillary pain: (2) Lymphadenopathy: PLAN: Plan The patient is having ongoing pain in her left axilla. I performed a left axillary biopsy a long time ago and she has been having pain ever since. I repeated imaging and the ultrasound shows several enlarged lymph nodes in the left axilla. I discussed this with oncology and they recommended excisional biopsy of a lymph node or 2. I discussed this with her in detail. I discussed the risks including but not limited to bleeding, infection, nerve injury, lymphedema, seroma formation. Patient understands all the risks and is willing to proceed. Andre Machado MD Pager: [facility] [address] [place] [address] [address] [place] [address] Office:
[2023-05-21] MEDS: Cefazolin 2 GM in 0.9% Normal Saline (100mL Bag) 100 ML IV (08:15)
[2023-05-21] MEDS: Bupivacaine 0.25% 30 ML Vial (08:45)
--- NOTE | 2023-05-21 09:12 | OP.PCM_ITS ---
Report of Operation Date of Procedure: 05/21/23 Pre-Operative Diagnosis: Left axillary lymphadenopathy Post-Operative Diagnosis: Same Surgery/Procedure Performed:: Left axillary lymph node excisional biopsy Type of Anesthesia: General/Regional Specimen's removed: Left axillary lymph node Estimated Blood Loss (mL): 10 Description of Procedure: Patient was brought back to the operating room and general anesthesia was induced. The left axilla and breast were prepped and draped in usual sterile fashion. Small incision was marked and injected with local anesthetic. Scalpel was used to make an incision and hemostasis was obtained using electrocautery. Dissection carried down to the axilla. The axillary fascia was opened and then dissection was carried out until we reached the enlarged lymph node. It was circumferentially dissected free of its loose attachments and retracted. Once it was retracted anteriorly harmonic scalpel was used to circumferentially d issect the lymph node free and it was sent for pathology. The cavity had good hemostasis. It was irrigated and suctioned dry. The axillary fascia was closed with interrupted 3-0 Vicryl sutures. The skin was closed with interrupted 3-0 Vicryl sutures and a running 4-0 Monocryl suture. Dermabond glue was applied, patient was awoken and taken to PACU in stable condition. Admit VTE Documentation VTE Mechan Device Prophylaxis: SCD's
--- NOTE | 2023-05-21 09:33 | DCINST_ITS ---
Discharge Instructions Diet Discharge Diet: Light diet - advance as tolerated Activity Discharge Activity: Return to Normal Activity, May Drive (in 2-3 days) and May Shower (tomorrow) Lifting Restrictions: 15 lbs for 1 week Dressing / Incision Call your doctor if your incision/area has: Continuous Slow Oozing, Sudden Increased Bleeding, Increased Pain/ Swelling, Increased Redness, Foul Smelling Discharge and Swelling at the incision site Call your doctor if you observe: Fever of 101 or Higher Cleanse incision/area with: Soap & Water Follow Up Care Please Follow Up With: Andre Machado MD When: Please call to schedule 2 week follow up appointment. [phone] Test Results: Test results from this visit will be discussed in further detail at your follow- up appointment, if applicable. Discharge Plan Admission Attending Provider: Andre Machado Primary Care Provider: Eboni Katz Instructions Additional Instructions / Restrictions: Alternate ibuprofen and Tylenol for pain, oxycodone for breakthrough pain. Discharge Orders/Prescriptions Prescriptions: New acetaminophen 325 mg Tablet 650 mg PO Q4H PRN PRN (Reason: Pain Or Fever) Qty: 0 0RF oxycodone 5 mg Tablet 5 - 10 mg PO Q4H PRN PRN (Reason: Pain Score 4-10/10) 5 Days Qty: 15 0RF Continued biotin 2,500 mcg capsule 2,500 mcg PO ONCE aspirin 81 mg capsule 81 mg PO DAILY Patient Comments: ON HOLD FOR SURGERY multivitamin with iron 1 EACH tablet 1 tab PO DAILY Patient Comments: VITAMIN SUPPLEMENT celecoxib [Celebrex] 200 mg capsule 200 mg PO DAILY PRN (Reason: pain) Qty: 90 3RF amlodipine 5 mg tablet 7.5 mg PO DAILY 90 Days Qty: 135 3RF losartan 50 mg tablet 50 mg PO DAILY 90 Days Qty: 90 3RF ropinirole 0.5 mg tablet 0.5 mg PO TID Qty: 360 3RF hydrochlorothiazide 25 mg tablet See Rx Instructions .ROUTE .COMPLEX Qty: 90 3RF Dose Instruction: TAKE 1 TABLET DAILY Rx Instructions: TAKE 1 TABLET DAILY oxybutynin chloride 10 mg tablet extended release 24hr See Rx Instructions .ROUTE .COMPLEX Qty: 90 3RF Dose Instruction: TAKE 1 TABLET DAILY Rx Instructions: TAKE 1 TABLET DAILY potassium chloride 20 mEq tablet extended release 20 meq PO BID Qty: 180 2RF Referrals / Follow Up: Eboni Katz MD [Primary Care Provider] - Disposition Disposition (needs filled in before D/C Order can be placed): Home, Self Care
[2023-05-21] MEDS: Acetaminophen 325 MG Tablet 650 MG PO (09:54)
== END 2023-05-21 10:42 | disposition home or self-care (01) ==
LOC: SDC 07:04 → AC 07:08
PROVIDERS: PCP Internal Medicine; Referring Provider Surgery; Visit Provider Surgery
PROC: (CPT 38500; principal; 2023-05-21 08:45)
DX: R59.9 Enlarged lymph nodes, unspecified (principal); E78.00 Pure hypercholesterolemia, unspecified; I10 Essential (primary) hypertension; Z79.82 Long term (current) use of aspirin; M79.622 Pain in left upper arm
CPT/HCPCS: 38525; 01610; 88305; 88313; 88341; 88342; A4648; J7120; J2405

== ENCOUNTER → 2023-12-04 | Outpatient (CLI) | payer MEDICARE, SELFPAY ==
--- NOTE | 2023-12-04 08:06 | CT_ITS ---
STUDY: CT ABDOMEN AND PELVIS WITH CONTRAST REASON FOR EXAM: Female, 78 years old. LLQ Pain. History of lymphoma. RADIATION DOSAGE (If Supplied By Facility): CTDIvol = ( 16.85 ) mGy, DLP = ( 1028.41 ) mGycm TECHNIQUE: Transaxial images were obtained from the dome of the diaphragm to the symphysis pubis with oral contrast. Oral and amp; IV Readi-CAT and amp; 85 mL Isovue-300 was administered. Sagittal and coronal images were reconstructed. Individualized dose optimization techniques were used for this CT. COMPARISON: None. FINDINGS: The visualized lung bases are unremarkable. Coronary calcification. There is decreased attenuation of the liver consistent with steatosis. Normal gallbladder and extrahepatic biliary system. Normal spleen. Normal pancreas. Normal bilateral adrenal glands. Normal right kidney. There is a 1.3 cm hypoechoic dense lesion in the anterior lateral aspect of the left kidney. This does not represent a simple cyst. Correlation with ultrasound recommended. There is a small hiatal hernia. Normal small intestine. There are multiple colonic diverticula consistent with diverticulosis. The appendix is visualized and appears normal. Normal abdominal aorta. Normal inferior vena cava. Normal retroperitoneum. Normal urinary bladder. Normal abdominal wall. There are degenerative changes of the visualized lumbar spine. 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 CT/Abdomen/Pelvis WITH Contrast IMPRESSION: 1.3 cm hypoechoic lesion in the anterior lateral aspect of the left kidney. This does not look like a simple cyst. Correlation with ultrasound recommended. Fatty infiltration of the liver. Electronically Signed: Andre Brian MD at 15:10 EDT ,
[2023-12-04 08:33] LABS: CREATININE FINGERSTICK < 1.0 mg/dL (0.55-1.02); EGFR FINGERSTICK > 60.0000 mL/min (>60)
== END | disposition home or self-care (01) ==
PROVIDERS: PCP Internal Medicine; Referring Provider Internal Medicine; Visit Provider Internal Medicine
DX: R10.32 Left lower quadrant pain (principal)
CPT/HCPCS: 74177; Q9967; A4216

== ENCOUNTER → 2023-12-09 | Outpatient (CLI) | payer MEDICARE, SELFPAY ==
--- NOTE | 2023-12-09 08:53 | US_ITS ---
STUDY: ABDOMINAL ULTRASOUND - LEFT UPPER QUADRANT REASON FOR EXAM: Female, [address] Left renal mass TECHNIQUE: Transabdominal ultrasound was performed with real-time and static burnett scale imaging. TECHNICAL QUALITY: Adequate. COMPARISON: Comparison is made with prior CT scan dated December 04, 2023 FINDINGS: Spleen: Normal size of the spleen. The spleen measures 10.7 sign by 3.9 cm x 4.5 cm. Left Kidney: Normal size of the left kidney. The left kidney measures 10.7 cm x 3.9 cm x 4.5 cm. Normal renal cortex. The left cortex measures 1.2 cm. There is a 1.4 cm x 1.4 cm x 1.4 cm left renal cyst. There is no left hydronephrosis. US/Abdomen Limited IMPRESSION: 1.4 cm x 1.4 cm x 1.4 cm left renal cyst. Electronically Signed: Andre Brian MD at 16:01 EDT ,
== END | disposition home or self-care (01) ==
LOC: US 08:53
PROVIDERS: PCP Internal Medicine; Referring Provider Internal Medicine; Visit Provider Internal Medicine
DX: R93.5 Abnormal findings on diagnostic imaging of other abdominal regions, including retroperitoneum (principal); N28.89 Other specified disorders of kidney and ureter
CPT/HCPCS: 76705

== ENCOUNTER → 2023-12-10 | Outpatient (CLI) | payer MEDICARE, SELFPAY ==
--- NOTE | 2023-12-10 12:05 | BI_ITS ---
MAMMOGRAPHY - BILATERAL SCREENING REASON FOR EXAM: Female, 78 years old. Routine annual screening examination. PERTINENT HISTORY: Mother with breast cancer. TECHNIQUE: Digital bilateral breast sunita (3D mammographic acquisition) in the CC and MLO projections. 2-D mediolateral oblique (MLO) and craniocaudad (CC) views of both breasts were obtained. CAD: Full Field Digital Mammography with Computer Added Detection was performed. COMPARISON: Grandmother with breast cancer. FINDINGS: Breast Composition: The breasts are almost entirely fatty. There are no dominant masses or suspicious calcifications. Stable fat-containing bilateral axillary lymph nodes. No other significant abnormalities are identified. There has been no significant change since the prior study. BI/SCRN MAMM (CAD)W/SUNITA BILAT IMPRESSION: Stable bilateral screening mammogram. Yearly follow-up mammogram recommended. (A) ASSESSMENT CATEGORY: BIRADS Category 2: Benign. A letter regarding these results will be sent to the patient by the facility within 30 days. Approximately 10% of breast cancers are not detected by mammography. A normal mammogram should not delay biopsy of a clinically suspicious abnormality. [id number] Electronically Signed: Andre Brian MD at 13:37 EDT ,
--- NOTE | 2023-12-10 12:11 | BD_ITS ---
STUDY: DUAL ENERGY X-RAY ABSORPTIOMETRY / DXA REASON FOR EXAM: Female, 78 years old. Post menopausal TECHNIQUE: Bone Mineral Density (BMD) measurements of lumbar spine and bilateral hips were obtained. COMPARISON: Comparison is made with prior study dated September 22, 2018. FINDINGS: Lumbar Spine (L1-L4): g/cm2 (0.942) / T-score (-1.0) / Z-score (1.6) Findings are suggestive of normal bone density with a low fracture risk. Left Femur Total: g/cm2 (0.879) / T-score (-0.5) / Z-score (1.4) Left Femoral Neck: g/cm2 (0.678) / T-score (-1.5) / Z-score (0.6) Right Femur Total: g/cm2 (0.912) / T-score (-0.2) / Z-score (1.7) Right Femoral Neck: g/cm2 (0.715) / T-score (-1.2) / Z-score (1.0) The T-Scores on the most recent prior examination were: Lumbar Spine (L1-L4): There has been worsening of bone density since the previous examination. Left Femur Total: which represents a worsening of 6.5. Right Femur Total: which represents a worsening of 7.9%. BD/Dexa Bone Density Study IMPRESSION: The patient is considered osteopenic as outlined below according to [employer] (WHO) criteria with a low fracture risk. There has been worsening of bone density since the previous examination. Reference Information: The T-score is the number of standard deviations above or below the standard which is normal for young adults at their peak bone mineral density. The World Health Organization (WHO) interprets the T-scores as follows: Above -1 Normal bone density Between -1 and -2.5 Osteopenia Equal to / or below -2.5 Osteoporosis As a practical clinical guideline, osteopenia may be graded as follows: Mild -1 through -1.5 Moderate -1.6 through -2.0 Severe -2.1 through -2.4 The Z-score is the number of standard deviations above or below age-matched controls. A Z-score of less than -1.5 would be considered abnormal. References: 1. NIH Osteoporosis and Related Bone Diseases www osteo.org 2. International Society for Clinical Densitometry www iscd.org 3. National Osteoporosis Foundation www nof.org Electronically Signed: Andre Brian MD at 8:20 EDT ,
[2023-12-10 13:46] LABS: Anion Gap 5 (5-15); BUN 19 mg/dL (7-18); BUN/Creat Ratio 19.9 RATIO (10-20); Calcium,Total 9.6 mg/dL (8.5-10.1); Chloride 102 mmol/L (98-107); Creatinine, Serum 0.95 mg/dL (0.55-1.02); EST Glomerular Filtration Rate 60 mL/min (>60); Est Glom Filt Rate - Afr Amer 73 mL/min (>60); Glucose 125 mg/dL (74-106); Potassium 3.8 mmol/L (3.5-5.1); Sodium Level 136 mmol/L (136-145)
== END | disposition home or self-care (01) ==
PROVIDERS: PCP Internal Medicine; Referring Provider Internal Medicine; Visit Provider Internal Medicine
DX: Z12.31 Encounter for screening mammogram for malignant neoplasm of breast (principal); Z78.0 Asymptomatic menopausal state; I10 Essential (primary) hypertension
CPT/HCPCS: 36415; 77063; 77067; 77080; 80048

== ENCOUNTER → 2024-02-20 | Outpatient (CLI) | payer MEDICARE, SELFPAY ==
[2024-02-20 12:30] LABS: Absolute Lymphocyte Count 0.66 X10^3/uL (0.83-4.51); Basophil# 0.04 X10^3/uL; Basophil% 0.5 % (0-1); Eosinophil# 0.25 X10^3/uL; Eosinophils% 3.3 % (0-5); Hemoglobin 13.3 g/dL (12.0-15.0); Lymphocyte # 0.66 X10^3/ul (0.83-4.51); Lymphocyte % 8.6 % (19-41); Mean Corp Hgb Conc 31.7 g/dL (32-36); Mean Corpuscular Volume 94.6 fL (81-99); Mean Platelet Vol. 11.5 fl (6.2-12.0); Monocyte# 0.59 X10^3/uL; Monocyte% 7.7 % (0-10); NRBC Flagged by Analyzer 0 % (0-5); Neutrophil # 6.04 X10^3/uL (2.7-7.7); Neutrophil % 79.1 % (47-70); Platelet Count 164 K/mm3 (150-450); RBC Distribution Width CV 14.2 % (11.6-14.6); RBC Distribution Width SD 49.4 fl (35.1-43.9); Red Blood Count 4.44 M/mm3 (4.2-5.4); White Blood Count 7.6 K/mm3 (4.4-11.0)
[2024-02-20 13:21] LABS: ALB/GLOB Ratio 0.9 RATIO (0.9-2.4); AST(SGOT) 35 U/L (15-37); Alanine Aminotransfer ALT/SGPT 49 U/L (13-56); Albumin, Serum 3.3 g/dL (3.2-5.0); Alkaline Phosphatase 104 U/L (45-117); Anion Gap 5 (5-15); BUN 19 mg/dL (7-18); BUN/Creat Ratio 18.4 RATIO (10-20); Calcium,Total 9.5 mg/dL (8.5-10.1); Chloride 102 mmol/L (98-107); Creatinine, Serum 1.03 mg/dL (0.55-1.02); EST Glomerular Filtration Rate 55 mL/min (>60); Est Glom Filt Rate - Afr Amer 67 mL/min (>60); Globulin 3.5 g/dL (2.2-4.2); Glucose 126 mg/dL (74-106); Potassium 4.4 mmol/L (3.5-5.1); Protein, Total 6.8 g/dL (6.4-8.2); Sodium Level 135 mmol/L (136-145)
== END | disposition home or self-care (01) ==
LOC: BIMLAB 08:05
PROVIDERS: PCP Internal Medicine; Referring Provider Internal Medicine; Visit Provider Internal Medicine
DX: K21.9 Gastro-esophageal reflux disease without esophagitis (principal)
CPT/HCPCS: 36415; 80053; 85025

== ENCOUNTER → 2024-02-23 | Outpatient (CLI) | payer MEDICARE, SELFPAY | END | disposition home or self-care (01) | LOC: LABSPEC 10:19 | PROVIDERS: PCP Internal Medicine; Referring Provider Internal Medicine; Visit Provider Internal Medicine | DX: R19.5 Other fecal abnormalities (principal) | CPT/HCPCS: 82274 ==

== ENCOUNTER 2024-02-24 15:39 | Emergency (ER) | payer MEDICARE, SELFPAY ==
[2024-02-24] VITALS (7 sets, daily range): BP systolic 135–141; BP diastolic 71–97; PULSE 74–94; RESP 14–18; TEMP 36.6–37.2; O2SAT 92–97; BMI 32.5
[2024-02-24 16:08] LABS: Absolute Lymphocyte Count 1.25 X10^3/uL (0.83-4.51); Absolute Neutrophil Count 5.5 X10^3/uL (2.0-7.7); Basophil# 0.05 X10^3/uL; Basophil% 0.6 % (0-1); Eosinophil# 0.39 X10^3/uL; Eosinophils% 4.8 % (0-5); Hematocrit 38.6 % (37-47); Hemoglobin 13.2 g/dL (12.0-15.0); Lymphocyte # 1.25 X10^3/ul (0.83-4.51); Lymphocyte % 15.4 % (19-41); Mean Corp Hgb Conc 34.2 g/dL (32-36); Mean Corpuscular Hgb 31.1 pg (27.0-32.0); Mean Platelet Vol. 10.8 fl (6.2-12.0); Monocyte# 0.93 X10^3/uL; Monocyte% 11.5 % (0-10); NRBC Flagged by Analyzer 0 % (0-5); Neutrophil # 5.45 X10^3/uL (2.7-7.7); Neutrophil % 67.1 % (47-70); Platelet Count 220 K/mm3 (150-450); RBC Distribution Width CV 14.2 % (11.6-14.6); RBC Distribution Width SD 47.6 fl (35.1-43.9); Red Blood Count 4.24 M/mm3 (4.2-5.4); White Blood Count 8.1 K/mm3 (4.4-11.0)
--- NOTE | 2024-02-24 16:12 | EDS_ITS ---
HPI History of Present Illness Chief Complaint: GI Bleed [facility] Medical History GI bleed Dark stools Left renal mass Abnormal CT of the abdomen Dupuytren contracture of right hand LLQ pain Obesity (BMI 30-39.9) Small lymphocytic lymphoma Wears glasses Wears partial dentures Wears dentures Seasonal allergies Non-smoker Sinusitis GERD (gastroesophageal reflux disease) Borderline type 2 diabetes mellitus Right hand pain Hyperglycemia Chronic sinusitis Shortness of breath Bilateral lower extremity edema Flu vaccine need Health care maintenance Tinnitus H/O tinnitus Chronic vertigo Cataracts, bilateral Back problem Actinic keratosis Cancer of skin of left ear Dupuytren's contracture Open cat bite of hand Cat bite of right hand with infection Restless leg syndrome Arthritis Vertigo High cholesterol Chronic hypertension Generalized osteoarthritis Home Medications ?Medication ?Instructions ?Recorded ?Last Taken ?Type multivitamin with iron 1 tab PO DAILY 03/31/13 05/20/23 History biotin 2,500 mcg capsule 2,500 mcg PO ONCE 07/15/17 05/20/23 History aspirin 81 mg capsule 81 mg PO DAILY 09/18/21 05/14/23 History acetaminophen 325 mg tablet 650 mg (2 x 325 mg) PO Q4H PRN PRN 05/21/23 Unknown Rx Pain Or Fever #0 tabs amlodipine 5 mg tablet 7.5 mg (1.5 x 5 mg) PO DAILY 3 08/22/23 Unknown Rx months #135 tabs hydrochlorothiazide 25 mg tablet See Rx Instructions .Route 08/22/23 Unknown Rx .COMPLEX #90 tabs ropinirole 0.5 mg tablet 0.5 mg PO TID #360 tabs 08/22/23 Unknown Rx celecoxib 200 mg capsule (Celebrex) 200 mg PO DAILY PRN pain #90 caps 09/16/23 Unknown Rx oxybutynin chloride 10 mg 10 mg PO DAILY #90 TABLETS 10/15/23 Unknown Rx tablet,extended release 24 hr losartan 100 mg tablet 100 mg PO DAILY 3 months #90 tabs 11/19/23 Unknown Rx potassium chloride 20 mEq 20 meq PO BID #180 tabs 01/26/24 Unknown Rx tablet,extended release pantoprazole 40 mg tablet,delayed 40 mg PO BID 3 months #180 tabs 02/19/24 Unknown Rx release sucralfate 1 gram tablet (Carafate) 1 g PO [facility] 2 weeks #56 tabs 02/19/24 Unknown Rx Allergy/AdvReac Type Severity Reaction Status Date / Time lisinopril (From Zestril) AdvReac Intermediate Cough Verified 02/24/24 15:40 hydrocodone bitartrate (From AdvReac Mild Itching Verified 02/24/24 15:40 Vicodin) Family History Father Myocardial infarction Heart disease Hypertension Mother Breast cancer Grandmother Breast cancer Sister Lung cancer Seizures Surgical History History of left knee replacement History of colonoscopy History of lymph node biopsy History of cataract extraction H/O vaginal hysterectomy History of hysterectomy Cancer of skin of left ear Cat bite of right hand including fingers with infection Dupuytren contracture cancer removed S/P appendectomy S/P arthroscopy of knee History of total right knee replacement Social History Smoking Status: Never smoker alcohol intake: never substance use type: does not use caffeine: Yes what type of physical activity do you participate in: none seatbelt use: always do you feel safe at home: Yes additional social history: [facility] SUN EXPOSURE: FREQUENTLY EXAM Physical Exam Const Vital Signs: 02/24/24 15:40 02/24/24 15:43 02/24/24 16:43 Temperature 98.5 F 98.9 F 98 F Temperature Source Oral Oral Oral Pulse Rate 94 94 77 Respiratory Rate 18 18 17 Blood Pressure 135/72 H 135/72 H 141/77 H Blood Pressure Mean 93 93 98 Pulse Ox 97 97 92 Oxygen Delivery Method Room Air Room Air Room Air 02/24/24 17:00 Temperature 98 F Temperature Source Oral Pulse Rate 74 Respiratory Rate 18 Blood Pressure 138/97 H Blood Pressure Mean 110 Pulse Ox 93 Oxygen Delivery Method Room Air MDM MDM MDM Narrative Medical decision making narrative: HISTORY OF PRESENT ILLNESS: 78-year-old female presents concern for shortness of breath, abdominal burning and dark stool for 3 weeks. Noted to have a positive Hemoccult test as an outpatient. Denies chest pain, fever, vomiting. Denies cough. She denies blood thinners. The patient denies recent surgery in the last 4 weeks or immobilization in the last 3 days, denies previous diagnosis of DVT or PE, hemoptysis, unilateral leg swelling or malignancy with treatment the last 6 months or palliative. No estrogen use noted. REVIEW OF SYSTEMS: Pertinent positives: As per HPI Pertinent negatives: As per HPI PHYSICAL EXAM: Nursing triage notes reviewed, Vital signs reviewed Constitutional: please see [facility] HENT: MMM Eyes: Pupils equal round and reactive to light, Extraocular muscles intact Neck: No stridor, no JVD, full neck ROM Lungs: Clear to auscultation, No wheezing or rales. No increased work of breathing, no conversational dyspnea, no accessory muscle use, no nasal flaring. No respiratory distress noted Heart: Regular rate and rhythm, No murmurs, No rubs and No gallops, 2+ distal pulses (radial, femoral, posterior tibial) in all extremities Abdomen: Soft, there is no tenderness, rigidity, rebound or guarding, no obvious peritoneal signs, no palpable pulsatile abdominal masses, no auscultated abdominal bruit : No CVAT Extremities: No edema Neuro: No focal neurological deficits, cranial nerves II through XII intact, 5/5 strength in all extremities. Intact sensation to light touch in all extremities, 2+ reflexes bilateral patella tendons. Normal gait. No ataxia. Skin: No rash or lesions noted MEDICAL DECISION MAKING: Chief Complaint: Shortness of breath, lower abdominal pain and dark stool External records reviewed: Reviewed prior medications, anticoagulation noted Factors affecting care: Hypertension, GERD Social determinants of health: none History obtained from others: none Consults: none [facility] Narrative: The patient was initially hemodynamically stable, afebrile and nontoxic- appearing. Exam without focal abnormalities. I considered the following differential diagnosis: Anemia, pneumonia, CHF, UTI, ACS, electrolyte disturbance I obtained a broad lab and imaging work to further elucidate etiology of the patient's complaints. ALL IMAGES (IF OBTAINED) HAVE BEEN PERSONALLY REVIEWED AND INTERPRETED BY MYSELF. Urinalysis shows no evidence of urinary inflammation suggestive of UTI EKG with normal sinus rhythm, normal axis, normal intervals, no STEMI High-sensitivity troponin is negative, no evidence of myocardial ischemia BNP within normal limit suggestive of no CHF BMP with mild hyponatremia, no signs of metabolic acidosis or endorgan perfusion, there was a very mild acute kidney injury, there is no significant valvular pathology noted Lipase is wnl indicating no pancreatic inflammation. CT scan abdomen pelvis showed gastritis which is likely the cause of the patient's positive Hemoccult test CBC with no leukocytosis, stable hemoglobin, no significant anemia, no thrombocytopenia The synthesis of the patient history, physical exam, labs images suggest GI bleed given positive Hemoccult at home. Is likely secondary to gastritis. Will give close GI follow-up. Notification for admission at this time as patient hemoglobin is stable she is on a blood thinner she is hemodynamically stable otherwise. In terms of patient's reported shortness of breath is no sign of CHF, ACS, arrhythmia, PE, significant anemia cause is unclear but does not likely represent a life or limb threatening etiology given. Negative labs images and reassuring exam. In terms of the patient's acute kidney injury she is tolerating p.o. Encourage increase p.o. intake and get repeat labs by PCP. Arrange GI follow-up. Gave strict return precautions. The patient and/or family, caregivers express understanding. The patient and/or family, caregivers agrees with the plan. Shared decision making: I will have a discussion with the patient and or visitors regarding risk/benefits of further testing or admission. They will be made aware of of the risk/benefits inherent in this decision they will be given the opportunity to voice understanding. Total critical care time today provided was at least 0 minutes. This excludes s eparately billable procedures. Critical care time (if documented) is secondary to the patient having high probability of clinically significant/life threatening deterioration in the patient's condition which required my urgent intervention. Impression: 1. Acute GI bleed 2. Dyspnea 3. Acute kidney injury Dispo: Discharge home This note was generated with [employer] dictation software. It may contain incorrect words, spelling, and punctuation that were not noted in review of the chart prior to signing. Lab Data Labs: Laboratory Results - last 24 hr 02/24/24 02/24/24 02/24/24 15:55 16:40 17:14 WBC 8.1 RBC 4.24 Hgb 13.2 Hct 38.6 MCV 91.0 MCH 31.1 MCHC 34.2 D RDW Std Deviation 47.6 H RDW Coeff of Arlette 14.2 Plt Count 220 MPV 10.8 Immature Gran % (Auto) 0.600 Neut % (Auto) 67.1 Lymph % (Auto) 15.4 L [place] % (Auto) 11.5 H Eos % (Auto) 4.8 Baso % (Auto) 0.6 Absolute Neuts (auto) 5.5 Absolute Lymphs (auto) 1.25 Nucleated RBC % 0 PT 14.0 INR 1.1 APTT 26.8 Sodium 135 L Potassium 4.5 Chloride 102 Carbon Dioxide 26.0 Anion Gap 7 BUN 35 H Creatinine 1.55 H Estim Creat Clear Calc 34.61 Est GFR (MDRD) Af Amer 42 L Est GFR (MDRD) Non-Af 34 L BUN/Creatinine Ratio 22.6 H Glucose 126 H Calcium 9.6 Total Bilirubin 0.80 AST 23 ALT 61 H Alkaline Phosphatase 185 H Troponin I High Sens 4 B-Natriuretic Peptide 24.4 Total Protein 6.7 Albumin 3.3 Globulin 3.4 Albumin/Globulin Ratio 1.0 Lipase 36 Urine Color Yellow Urine Clarity Clear Urine pH 6.0 Ur Specific [place] 1.010 Urine Protein Negative Urine Glucose (UA) Normal Urine Ketones Negative Urine Occult Blood Negative Urine Nitrite Negative Urine Bilirubin Negative Urine Urobilinogen Normal Ur Leukocyte Esterase Negative Urine RBC 0 SEEN Urine WBC 0 SEEN Ur Squamous Epith Cells 0-5 SEEN Urine Bacteria RARE Hyaline Casts 0-5 SEEN Urine Mucus 0 SEEN Radiography Diagnostic Testing: Clinical Impression(s) from Imaging Studies Abdomen/Pelvis CT 02/24/24 16:32 IMPRESSION: Findings which may be consistent with nonspecific gastritis.. Hyperdense left renal nodule consistent with hemorrhagic cyst unchanged since previous study No evidence for small bowel obstruction or other acute abnormality Status post hysterectomy and appendectomy Electronically Signed: Gatito Ramirez MD at 17:36 EST Reading Location ID and State: [facility] / [place] Tel [phone], Service support , Chest X-Ray 02/24/24 16:59 IMPRESSION: No acute cardiopulmonary pathology Electronically Signed: Gatito Ramirez MD at 17:30 EST , Discharge Plan Triage Chief Complaint: GI Bleed ED Provider: Alex Hendricks Dx/Rx/DC Orders Prescriptions: No Action biotin 2,500 mcg capsule 2,500 mcg PO ONCE aspirin 81 mg capsule 81 mg PO DAILY Patient Comments: ON HOLD FOR SURGERY losartan 100 mg tablet 100 mg PO DAILY 90 Days Qty: 90 3RF multivitamin with iron 1 EACH tablet 1 tab PO DAILY Patient Comments: VITAMIN SUPPLEMENT acetaminophen 325 mg Tablet 650 mg PO Q4H PRN PRN (Reason: Pain Or Fever) Qty: 0 0RF amlodipine 5 mg tablet 7.5 mg PO DAILY 90 Days Qty: 135 3RF hydrochlorothiazide 25 mg tablet See Rx Instructions .ROUTE .COMPLEX Qty: 90 3RF Dose Instruction: TAKE 1 TABLET DAILY Rx Instructions: TAKE 1 TABLET DAILY ropinirole 0.5 mg tablet 0.5 mg PO TID Qty: 360 3RF celecoxib [Celebrex] 200 mg capsule 200 mg PO DAILY PRN (Reason: pain) Qty: 90 3RF oxybutynin chloride 10 mg tablet extended release 24hr 10 mg PO DAILY Qty: 90 3RF potassium chloride 20 mEq tablet extended release 20 meq PO BID Qty: 180 3RF sucralfate [Carafate] 1 gram tablet 1 g PO QACHS 14 Days Qty: 56 0RF pantoprazole 40 mg tablet,delayed release (DR/EC) 40 mg PO BID 90 Days Qty: 180 3RF Primary Care Provider: Eboni Katz Referrals: Eboni Katz MD [Primary Care Provider] - Print Language: Burmese
[2024-02-24 16:25] LABS: AST(SGOT) 23 U/L (15-37); Alanine Aminotransfer ALT/SGPT 61 U/L (13-56); Albumin, Serum 3.3 g/dL (3.2-5.0); Alkaline Phosphatase 185 U/L (45-117); Anion Gap 7 (5-15); BUN 35 mg/dL (7-18); BUN/Creat Ratio 22.6 RATIO (10-20); Calcium,Total 9.6 mg/dL (8.5-10.1); Chloride 102 mmol/L (98-107); Creatinine, Serum 1.55 mg/dL (0.55-1.02); EST Glomerular Filtration Rate 34 mL/min (>60); Est Glom Filt Rate - Afr Amer 42 mL/min (>60); Estimated Creatinine Clearance 34.61 ml/min; Globulin 3.4 g/dL (2.2-4.2); Glucose 126 mg/dL (74-106); Potassium 4.5 mmol/L (3.5-5.1); Protein, Total 6.7 g/dL (6.4-8.2); Sodium Level 135 mmol/L (136-145)
--- NOTE | 2024-02-24 16:32 | EKG12_ITS ---
Test Reason : GENRAL Blood Pressure : */* mmHG Vent. Rate : 78 BPM Atrial Rate : 78 BPM P-R Int : 148 ms QRS Dur : 74 ms QT Int : 364 ms P-R-T Axes : 32 -1 9 degrees QTcB Int : 414 ms Normal sinus rhythm Normal ECG Confirmed by Manuel Roe ([id number]), editor house organ RORO FAITH ([id number]) on 02/25/2024 1:06:54 PM Referred By: Confirmed By: Manuel Roe
--- NOTE | 2024-02-24 16:32 | CT_ITS ---
STUDY: CT ABDOMEN AND PELVIS WITHOUT CONTRAST REASON FOR EXAM: Female, 78 years old. epigastric abdominal pain RADIATION DOSAGE (If Supplied By Facility): CTDIvol = ( 14.43 ) mGy, DLP = ( 728.03 ) mGycm TECHNIQUE: Transaxial images were obtained from the dome of the diaphragm to the symphysis pubis without oral contrast, and without intravenous contrast. Sagittal and coronal images were reconstructed. Individualized dose optimization techniques were used for this CT. COMPARISON: December 04, 2023 FINDINGS: The visualized lung bases are unremarkable. The visualized portions of the heart are within normal limits. Normal liver. Normal gallbladder and extrahepatic biliary system. Normal spleen. Normal pancreas. Normal bilateral adrenal glands. Normal right kidney. Small hyperattenuated cortical nodule left kidney measuring 1.37 x 1.12 cm likely hemorrhagic cyst Concentric thickening of the bronson of the gastric fundus which may be consistent with nonspecific gastritis. Normal small intestine. Diverticular disease of the descending and sigmoid colon without evidence for acute diverticulitis. Appendix not visualized consistent with appendectomy Mild atherosclerotic change of the aorta without evidence for aneurysm. Normal inferior vena cava. Normal retroperitoneum. Normal urinary bladder. Uterus not visualized status post hysterectomy Normal abdominal wall. Lumbar spine demonstrates degenerative change. Grade 1 spondylolisthesis at L5-S1 CT/Abdomen/Pelvis without Cont IMPRESSION: Findings which may be consistent with nonspecific gastritis.. Hyperdense left renal nodule consistent with hemorrhagic cyst unchanged since previous study No evidence for small bowel obstruction or other acute abnormality Status post hysterectomy and appendectomy Electronically Signed: Gatito Ramirez MD at 17:36 EST ,
[2024-02-24 16:58] LABS: International Normalized Ratio 1.1
[2024-02-24 16:59] LABS: Partial Thromboplast Time 26.8 Seconds (24.1-36.2)
--- NOTE | 2024-02-24 16:59 | RAD_ITS ---
STUDY: X-RAY CHEST REASON FOR EXAM: Female, 78 years old. SOB TECHNIQUE: AP portable COMPARISON: March 31, 2013 FINDINGS: The lungs are clear and expanded. There is no demonstrated pleural abnormality. Normal size heart. Normal mediastinum. There are small calcified left hilar nodes Normal visualized pulmonary arteries. Normal visualized aortic arch and descending thoracic aorta. Dorsal spine and shoulders demonstrates degenerative change. Normal visualized ribs, and clavicles There is no demonstrated abnormality of the visualized soft tissue structures of the upper abdomen. RAD/Chest 1 View (Portable) IMPRESSION: No acute cardiopulmonary pathology Electronically Signed: Gatito Ramirez MD at 17:30 EST ,
[2024-02-24 17:03] LABS: BNP,B-Type NATRIURETIC PEPTIDE 24.4 pg/mL (0-100); Lipase 36 U/L (13-75); Troponin-I HS 4 pg/mL (3.0-54.0)
[2024-02-24 17:23] LABS: Mucous, Urine 0 SEEN /hpf (<or=2+); Red Blood Cells-Urine 0 SEEN /hpf (0-5); White Blood Cells 0 SEEN /hpf (0-5)
[2024-02-24] MEDS: 0.9% Normal Saline (1000mL) 1,000 ML 999 ML IV (17:24)
[2024-02-24 17:42] LABS: Color, Urine Yellow (Yellow); Glucose, Dipstick Normal (Normal); Ketone-Dipstick Negative (Negative); Leukocyte Esterase-Dipstick Negative /ul (Negative); Nitrite-Dipstick Negative (Negative); Occult Blood-Urine Negative /ul (Negative); Protein-Dipstick Negative (Negative); Urine Bilirubin Dipstick Negative (Negative); Urine Clarity Clear (Clear); Urine Urobilinogen Normal (Normal)
[2024-02-24 17:49] LABS: Bacteria RARE /hpf (None Seen); Hyaline Cast 0-5 SEEN /lpf (0-5); Squamous Epithelial Cells - UA 0-5 SEEN /hpf (5-10)
--- OUTSIDE RECORDS SUMMARY | 2024-02-24 20:20 | XMS RPT_ITS | CCD ---
Author Organization [facility] Care Team Providers Care Heliotherapist Name Role Phone Brennen Hopper MD Unavailable KIERAN BERNARDO (BRANNER MACHINE TENDER) Unavailable Unavailable Allergies Allergy Classification Reported Allergen(s) Allergy Type Date of Onset Reaction(s) Facility (1 source) acetaminophen / HYDROcodone Drug Allergy 6 red-itchy [facility] Work Phone: (1 source) lisinopril Drug Allergy 6 cough [facility] Work Phone: (1 source) Acetaminophen / HYDROcodone; Translations: [HYDROCODONE-ACET [facility]] [facility] Lisinopril; Translations: [LISINOPRIL] Drug Allergy 5 [facility] Repository (1 source) OTHER; Translations: [OTHER] Propensity to adverse reactions (disorder) 6 [facility] Repository Medications Completed/Discontinued Medications Medication Drug Class(es) Dates Sig (Normalized) Sig (Original) acetaminophen 325 mg / oxyCODONE hydrochloride 5 mg oral tablet (2 sources) Opioid Agonist Start: 05-22-2016 End: 06-26-2016 take 1 tablet by mouth four times daily as needed for pain PERCOCET 5-325 MG TABS One tablet by mouth four times daily as needed for pain OXYCODONE-ACETAMIN OPHEN [id number] Brennen Hopper MD gabapentin 100 mg oral capsule (4 sources) Anti-epileptic Agent Start: 05-22-2016 End: 06-26-2016 take 1 tablet by mouth three times daily NEURONTIN 100 MG CAPS One tablet by mouth three times daily GABAPENTIN [id number] Brennen Hopper MD Start: 04-24-2016 End: 06-26-2016 take 1 tablet by mouth twice daily NEURONTIN 100 MG CAPS One tablet by mouth twice daily GABAPENTIN [id number] Ameena Pereira FACILITIES TECHNICIAN hydroCHLOROthiazide 50 mg oral tablet (1 source) Thiazide Diuretic take 1 tablet by mouth once daily HYDROCHLOROTHIAZIDE 50 MG TABS One tablet by mouth daily HYDROCHLOROTHIAZIDE [id number] Archana Barraza imiquimod 50 mg/ml topical cream (1 source) Start: 2016 ALDARA 5 % CREA apply daily at night 5 days per week for 6 weeks IMIQUIMOD [id number] Brennen Hopper MD rOPINIRole 5 mg oral tablet (1 source) Nonergot Dopamine Agonist ROPINIROLE HCL 5 MG TABS 3 times daily ROPINIROLE HCL [id number] Archana Barraza SOLIFENACIN SUCCINATE TABS (1 source) Cholinergic Muscarinic Antagonist VESICARE TABS 1 tab pm SOLIFENACIN SUCCINATE TABS [id number] Archana Barraza valsartan 160 mg oral tablet (1 source) Angiotensin 2 Receptor Medardo take 1 tablet by mouth once daily DIOVAN 160 MG TABS One tablet by mouth daily VALSARTAN [id number] Archana Barraza Problems Active Problems Problem Classification Problem Date [...] Results Test Name Value Interpretation Reference Range Facility OBSOLETEon 03-10-2019 OBSOLETE Refill (INTMWS) ---- VINAY RO ([id number]) 1945 F Date Time Provider Department 03/10/19 [facility] During your visit today, we recorded the following information about you: Hannah Santos RN 03/10/2019 10:29 AM Signed [facility] phones requesting refills as follows: Pending Prescriptions Disp Refills CELECOXIB 200 MG CAPSULE 90 capsule 1 Sig: Take 1 capsule by mouth once daily. ENRIQUE: No Verified pharmacy Last office visit 03-24-18, NO APT SCHEDULED Please review and advise. Hannah Bernardo APRN.CNP 03/11/2019 2:27 PM Signed Please notify pharmacy per our records patient established with a new provider 11/2018 and will need to contact current PCP for refills. Kieran Bernardo APRN.CNP Allergies As of Date: 03/10/2019 Noted Allergy Reaction environmental [Other] 02/20/2006 Comments: ragweed VICODIN (HYDROCODONE-ACETAM INOPHE*12/03/2004 9 - Itching 14 - Other: See Comments Comments: red all over ZESTRIL (LISINOPRIL) 12/03/2004 3 - Cough Date Reviewed: 03/24/2018 Reviewed by: Georgette Sanabria Ma - Fully Assessed Reason for Visit: Refill Request [94] Visit Diagnosis:Primary osteoarthritis involving multiple joints [M15.0] Prescriptions as of 03/10/2019 Sig: ROPINIROLE 0.5 MG TABLET Take 1 tablet by mouth three * LOSARTAN 50 MG TABLET Take 1 tablet by mouth once d* CELECOXIB 200 MG CAPSULE Take 1 capsule by mouth once * POTASSIUM CHLORIDE ER 10 MEQ * Take 2 capsules by mouth once* OMEPRAZOLE 20 MG CAPSULE,REBECA* Take 1 capsule by mouth once * HYDROCHLOROTHIAZIDE 25 MG TAB* Take 1 tablet by mouth once d* OXYBUTYNIN CHLORIDE ER 10 MG * Take 1 tablet by mouth once d* PRAVASTATIN 20 MG TABLET Take 1 tablet by mouth daily * BUDESONIDE 32 MCG/ACTUATION N* Use 2 Sprays in each nostril * SUCRALFATE 100 MG/ML ORAL SHARLA* Take 10 mL by mouth four time* DIAZEPAM 2 MG TABLET Take 2 mg by mouth as needed. BIOTIN ORAL Take by mouth. VITAMIN C ORAL Take by mouth. COMPOUNDED PRESCRIPTION Mask (per patient preference)* COMPOUNDED PRESCRIPTION CPAP @ 11 cm of water with hu* MECLIZINE 25 MG TABLET Take 1 tablet by mouth every * POLYETHYLENE GLYCOL 3350 17 G* 1/2 scoop daily CHOLECALCIFEROL (VITAMIN D3) * Take one(1) tablet daily. ASPIRIN 81 MG CHEWABLE TABLET Take one(1) tablet daily. DAILY MULTIVITAMIN TABLET Take one(1) tablet daily. Problem List As Of Date 03/10/2019 Noted Resolved HALLUX VALGUS [M20.10] 02/19/2005 Tibialis tendinitis [M76.829] 08/30/2005 08/20/2017 PLANTAR FIBROMATOSIS [M72.2] 02/19/2006 Essential hypertension [I10] Mixed hyperlipidemia [E78.2] 10/09/2007 Urinary incontinence, urge [N39.41] 12/14/2010 Rectocele [N81.6] 12/14/2010 08/20/2017 Cystocele, midline [N81.11] 12/14/2010 08/20/2017 Osteoarthritis [M19.90] 07/03/2011 More... MAURISIO (obstructive sleep apnea) [G47.33] 07/06/2012 More... RLS (restless legs syndrome) [G25.81] 03/10/2013 Encounter Status:Closed by SETH CHOUDHARY CMA on 03/15/19 [facility] OBSOLETEon 11-02-2018 OBSOLETE Refill (INTMWS) ---- VINAY RO ([id number]) 1945 F Date Time Provider Department 11/02/18 [facility] INTMWS During your visit today, we recorded the following information about you: Georgette Sanabria Ma 11/02/2018 3:48 PM Signed Patient has been identified by name and date of : Yes Pharmacy phones for refill(s): Pending Prescriptions Disp Refills ROPINIROLE 0.5 MG TABLET 270 tablet 3 Sig: Take 1 tablet by mouth three times daily. ENRIQUE: No Date of last office visit in primary care: 03/24/2018 Last 2 Encounter Wt Readings: Date: Wt: 03/24/2018 97.1 kg (214 lb) 02/19/2018 98.4 kg (217 lb) Previous labs/tests for medication: Not applicable Please advise. Thank you. Georgette Bernardo APRN.CNP 11/02/2018 4:33 PM Signed The following approved medication requests have been transmitted electronically. Signed Prescriptions Disp Refills rOPINIRole (REQUIP) 0.5 mg tablet 270 tablet 1 Sig: Take 1 tablet by mouth three times daily. ENRIQUE: No Authorizing Provider: KIERAN BERNARDO ([facility]) Kieran Bernardo APRN.CNP Allergies As of Date: 11/02/2018 Noted Allergy Reaction environmental [Other] 02/20/2006 Comments: ragweed VICODIN (HYDROCODONE-ACETAM INOPHE*12/03/2004 9 - Itching 14 - Other: See Comments Comments: red all over ZESTRIL (LISINOPRIL) 12/03/2004 3 - Cough Date Reviewed: 03/24/2018 Reviewed by: Georgette Sanabria Ma - Fully Assessed Reason for Visit: Refill Request [94] Visit Diagnosis:RLS (restless legs syndrome) [G25.81] Order(s):rOPINIRole (REQUIP) 0.5 mg tabletTake 1 tablet by mouth three times daily.Disp: 270 tabletRfl: 1 Prescriptions as of 11/02/2018 Sig: ROPINIROLE 0.5 MG TABLET Take 1 tablet by mouth three * LOSARTAN 50 MG TABLET Take 1 tablet by mouth once d* CELECOXIB 200 MG CAPSULE Take 1 capsule by mouth once * POTASSIUM CHLORIDE ER 10 MEQ * Take 2 capsules by mouth once* OMEPRAZOLE 20 MG CAPSULE,REBECA* Take 1 capsule by mouth once * HYDROCHLOROTHIAZIDE 25 MG TAB* Take 1 tablet by mouth once d* OXYBUTYNIN CHLORIDE ER 10 MG * Take 1 tablet by mouth once d* PRAVASTATIN 20 MG TABLET Take 1 tablet by mouth daily * BUDESONIDE 32 MCG/ACTUATION N* Use 2 Sprays in each nostril * SUCRALFATE 100 MG/ML ORAL SHARLA* Take 10 mL by mouth four time* DIAZEPAM 2 MG TABLET Take 2 mg by mouth as needed. BIOTIN ORAL Take by mouth. VITAMIN C ORAL Take by mouth. COMPOUNDED PRESCRIPTION Mask (per patient preference)* COMPOUNDED PRESCRIPTION CPAP @ 11 cm of water with hu* MECLIZINE 25 MG TABLET Take 1 tablet by mouth every * POLYETHYLENE GLYCOL 3350 17 G* 1/2 scoop daily CHOLECALCIFEROL (VITAMIN D3) * Take one(1) tablet daily. ASPIRIN 81 MG CHEWABLE TABLET Take one(1) tablet daily. DAILY MULTIVITAMIN TABLET Take one(1) tablet daily. Problem List As Of Date 11/02/2018 Noted Resolved HALLUX VALGUS [M20.10] INVALID FOR* Tibialis tendinitis [M76.829] INVALID FOR*08/20/2017 PLANTAR FIBROMATOSIS [M72.2] INVALID FOR* Essential hypertension [I10] Mixed hyperlipidemia [E78.2] INVALID FOR* Urinary incontinence, urge [N39.41] INVALID FOR* Rectocele [N81.6] INVALID FOR*08/20/2017 Cystocele, midline [N81.11] INVALID FOR*08/20/2017 Osteoarthritis [M19.90] INVALID FOR* More... MAURISIO (obstructive sleep apnea) [G47.33] INVALID FOR* More... RLS (restless legs syndrome) [G25.81] INVALID FOR* Prescriptions ordered this encounter Disp Refills Start End ROPINIROLE 0.5 MG TABLET 270 * 1 11/02/2018 Route: ORAL Sig: Take 1 tablet by mouth three times daily. Medications Discontinued During This Encounter rOPINIRole (REQUIP) 0.5 mg tablet 270 * 3 10/20/2017 11/02/2018 Sig: TAKE 1 TABLET THREE TIMES A DAY Disc: Reason for discontinue is not on file. Encounter Status:Closed by KIERAN BERNARDO CNP on 11/02/18 [facility] OBSOLETEon 10-20-2018 OBSOLETE Refill (FAMPWS) ---- VINAY RO ([id number]) 1945 F Date Time Provider Department 10/20/18 [facility] During your visit today, we recorded the following information about you: Micki Mcginnis MA 10/20/2018 1:54 PM Signed Physician: [facility]ting Call from pharmacy requesting refill. Please E-Scribe Last OV: 03/24/18 with Gunjan Painting No future office visit Pending Prescriptions Disp Refills ROPINIROLE 0.5 MG TABLET 270 tablet 3 Sig: Take 1 tablet by mouth three times daily. ENRIQUE: No Micki Bernardo APRN.CNP 10/20/2018 5:13 PM Signed Review of patient's medical record shows active prescription at pharmacy. Kieran Bernardo APRN.CNP Allergies As of Date: 10/20/2018 Noted Allergy Reaction environmental [Other] 02/20/2006 Comments: ragweed VICODIN (HYDROCODONE-ACETAM INOPHE*12/03/2004 9 - Itching 14 - Other: See Comments Comments: red all over ZESTRIL (LISINOPRIL) 12/03/2004 3 - Cough Date Reviewed: 03/24/2018 Reviewed by: Georgette Sanabria Ma - Fully Assessed Reason for Visit: Refill Request [94] Visit Diagnosis:RLS (restless legs syndrome) [G25.81] Prescriptions as of 10/20/2018 Sig: LOSARTAN 50 MG TABLET Take 1 tablet by mouth once d* CELECOXIB 200 MG CAPSULE Take 1 capsule by mouth once * POTASSIUM CHLORIDE ER 10 MEQ * Take 2 capsules by mouth once* OMEPRAZOLE 20 MG CAPSULE,REBECA* Take 1 capsule by mouth once * HYDROCHLOROTHIAZIDE 25 MG TAB* Take 1 tablet by mouth once d* OXYBUTYNIN CHLORIDE ER 10 MG * Take 1 tablet by mouth once d* ROPINIROLE 0.5 MG TABLET TAKE 1 TABLET THREE TIMES A D* PRAVASTATIN 20 MG TABLET Take 1 tablet by mouth daily * BUDESONIDE 32 MCG/ACTUATION N* Use 2 Sprays in each nostril * SUCRALFATE 100 MG/ML ORAL SHARLA* Take 10 mL by mouth four time* DIAZEPAM 2 MG TABLET Take 2 mg by mouth as needed. BIOTIN ORAL Take by mouth. VITAMIN C ORAL Take by mouth. COMPOUNDED PRESCRIPTION Mask (per patient preference)* COMPOUNDED PRESCRIPTION CPAP @ 11 cm of water with hu* MECLIZINE 25 MG TABLET Take 1 tablet by mouth every * POLYETHYLENE GLYCOL 3350 17 G* 1/2 scoop daily CHOLECALCIFEROL (VITAMIN D3) * Take one(1) tablet daily. ASPIRIN 81 MG CHEWABLE TABLET Take one(1) tablet daily. DAILY MULTIVITAMIN TABLET Take one(1) tablet daily. Problem List As Of Date 10/20/2018 Noted Resolved HALLUX VALGUS [M20.10] INVALID FOR* Tibialis tendinitis [M76.829] INVALID FOR*08/20/2017 PLANTAR FIBROMATOSIS [M72.2] INVALID FOR* Essential hypertension [I10] Mixed hyperlipidemia [E78.2] INVALID FOR* Urinary incontinence, urge [N39.41] INVALID FOR* Rectocele [N81.6] INVALID FOR*08/20/2017 Cystocele, midline [N81.11] INVALID FOR*08/20/2017 Osteoarthritis [M19.90] INVALID FOR* More... MAURISIO (obstructive sleep apnea) [G47.33] INVALID FOR* More... RLS (restless legs syndrome) [G25.81] INVALID FOR* Encounter Status:Closed by SETH CHOUDHARY CMA on 10/21/18 [facility] OBSOLETEon 10-07-2018 OBSOLETE Refill (INTMWS) ---- ILANVINAY Durbin ([id number]) 1945 F Date Time Provider Department 10/07/18 GUNJAN PAITNING INTMWS During your visit today, we recorded the following information about you: Erin Martinez LPN 10/07/2018 3:05 PM Signed Patient has been identified by name and date of : Yes Pharmacy phones for refill(s): Pending Prescriptions Disp Refills LOSARTAN 50 MG TABLET 90 tablet 3 Sig: Take 1 tablet by mouth once daily. ENRIQUE: No Date of last office visit in primary care: 03/24/18 Last 2 Encounter Wt Readings: Date: Wt: 03/24/2018 97.1 kg (214 lb) 02/19/2018 98.4 kg (217 lb) Previous labs/tests for medication: Not applicable Please advise. Thank you. Erin Bernardo APRN.[facility] 10/08/2018 10:40 AM Signed The following approved medication requests have been transmitted electronically. Signed Prescriptions Disp Refills losartan (COZAAR) 50 mg tablet 90 tablet 0 Sig: Take 1 tablet by mouth once daily. ENRIQUE: No Authorizing Provider: KIERAN BERNARDO ([facility]) Kieran Bernardo APRN.BRANNER MACHINE TENDER Allergies As of Date: 10/07/2018 Noted Allergy Reaction environmental [Other] 02/20/2006 Comments: ragweed VICODIN (HYDROCODONE-ACETAM INOPHE*12/03/2004 9 - Itching 14 - Other: See Comments Comments: red all over ZESTRIL (LISINOPRIL) 12/03/2004 3 - Cough Date Reviewed: 03/24/2018 Reviewed by: Georgette Sanabria Ma - Fully Assessed Reason for Visit: Refill Request [94] Order(s):losartan (COZAAR) 50 mg tabletTake 1 tablet by mouth once daily.Disp: 90 tabletRfl: 0 Prescriptions as of 10/07/2018 Sig: LOSARTAN 50 MG TABLET Take 1 tablet by mouth once d* CELECOXIB 200 MG CAPSULE Take 1 capsule by mouth once * POTASSIUM CHLORIDE ER 10 MEQ * Take 2 capsules by mouth once* OMEPRAZOLE 20 MG CAPSULE,REBECA* Take 1 capsule by mouth once * HYDROCHLOROTHIAZIDE 25 MG TAB* Take 1 tablet by mouth once d* OXYBUTYNIN CHLORIDE ER 10 MG * Take 1 tablet by mouth once d* ROPINIROLE 0.5 MG TABLET TAKE 1 TABLET THREE TIMES A D* PRAVASTATIN 20 MG TABLET Take 1 tablet by mouth daily * BUDESONIDE 32 MCG/ACTUATION N* Use 2 Sprays in each nostril * SUCRALFATE 100 MG/ML ORAL SHARLA* Take 10 mL by mouth four time* DIAZEPAM 2 MG TABLET Take 2 mg by mouth as needed. BIOTIN ORAL Take by mouth. VITAMIN C ORAL Take by mouth. COMPOUNDED PRESCRIPTION Mask (per patient preference)* COMPOUNDED PRESCRIPTION CPAP @ 11 cm of water with hu* MECLIZINE 25 MG TABLET Take 1 tablet by mouth every * POLYETHYLENE GLYCOL 3350 17 G* 1/2 scoop daily CHOLECALCIFEROL (VITAMIN D3) * Take one(1) tablet daily. ASPIRIN 81 MG CHEWABLE TABLET Take one(1) tablet daily. DAILY MULTIVITAMIN TABLET Take one(1) tablet daily. Problem List As Of Date 10/07/2018 Noted Resolved HALLUX VALGUS [M20.10] INVALID FOR* Tibialis tendinitis [M76.829] INVALID FOR*08/20/2017 PLANTAR FIBROMATOSIS [M72.2] INVALID FOR* Essential hypertension [I10] Mixed hyperlipidemia [E78.2] INVALID FOR* Urinary incontinence, urge [N39.41] INVALID FOR* Rectocele [N81.6] INVALID FOR*08/20/2017 Cystocele, midline [N81.11] INVALID FOR*08/20/2017 Osteoarthritis [M19.90] INVALID FOR* More... MAURISIO (obstructive sleep apnea) [G47.33] INVALID FOR* More... RLS (restless legs syndrome) [G25.81] INVALID FOR* Prescriptions ordered this encounter Disp Refills Start End LOSARTAN 50 MG TABLET 90 t* 0 10/08/2018 Route: ORAL Sig: Take 1 tablet by mouth once daily. Medications Discontinued During This Encounter valsartan (DIOVAN) 160 mg tablet 180 * 3 02/20/2017 10/08/2018 Route: ORAL Sig: Take 1 tablet by mouth once daily. Disc: Reason for discontinue is not on file. losartan (COZAAR) 50 mg tablet 90 t* 3 11/21/2017 10/08/2018 Route: ORAL Sig: Take 1 tablet by mouth once daily. Disc: Reason for discontinue is not on file. Encounter Status:Closed by KIERAN BERNARDO CNP on 10/08/18 [facility] OBSOLETEon 08-31-2018 OBSOLETE Refill (INTMWS) ---- VINAY RO ([id number]) 1945 F Date Time Provider Department 08/31/18 [facility] INTMWS During your visit today, we recorded the following information about you: Seth Choudhary Cma 08/31/2018 9:23 AM Signed Patient has been identified by name and date of : Yes Pharmacy phones for refill(s): Pending Prescriptions Disp Refills CELECOXIB 200 MG CAPSULE 90 capsule 1 Sig: Take 1 capsule by mouth once daily. ENRIQUE: No Date of last office visit in primary care: 03/24/18 Please advise. Thank you. Seth Bernardo APRN.CNP 08/31/2018 12:45 PM Signed The following approved medication requests have been transmitted electronically. Signed Prescriptions Disp Refills celecoxib (CELEBREX) 200 mg capsule 90 capsule 1 Sig: Take 1 capsule by mouth once daily. ENRIQUE: No Authorizing Provider: KIERAN BERNARDO ([facility]) Kieran Bernardo APRN.CNP Allergies As of Date: 08/31/2018 Noted Allergy Reaction environmental [Other] 02/20/2006 Comments: ragweed VICODIN (HYDROCODONE-ACETAM INOPHE*12/03/2004 9 - Itching 14 - Other: See Comments Comments: red all over ZESTRIL (LISINOPRIL) 12/03/2004 3 - Cough Date Reviewed: 03/24/2018 Reviewed by: Georgette Sanabria Ma - Fully Assessed Reason for Visit: Refill Request [94] Visit Diagnosis:Primary osteoarthritis involving multiple joints [M15.0] Order(s):celecoxib (CELEBREX) 200 mg capsuleTake 1 capsule by mouth once daily.Disp: 90 capsuleRfl: 1 Prescriptions as of 08/31/2018 Sig: CELECOXIB 200 MG CAPSULE Take 1 capsule by mouth once * POTASSIUM CHLORIDE ER 10 MEQ * Take 2 capsules by mouth once* OMEPRAZOLE 20 MG CAPSULE,REBECA* Take 1 capsule by mouth once * HYDROCHLOROTHIAZIDE 25 MG TAB* Take 1 tablet by mouth once d* OXYBUTYNIN CHLORIDE ER 10 MG * Take 1 tablet by mouth once d* LOSARTAN 50 MG TABLET Take 1 tablet by mouth once d* ROPINIROLE 0.5 MG TABLET TAKE 1 TABLET THREE TIMES A D* VALSARTAN 160 MG TABLET Take 1 tablet by mouth once d* PRAVASTATIN 20 MG TABLET Take 1 tablet by mouth daily * BUDESONIDE 32 MCG/ACTUATION N* Use 2 Sprays in each nostril * SUCRALFATE 100 MG/ML ORAL SHARLA* Take 10 mL by mouth four time* DIAZEPAM 2 MG TABLET Take 2 mg by mouth as needed. BIOTIN ORAL Take by mouth. VITAMIN C ORAL Take by mouth. COMPOUNDED PRESCRIPTION Mask (per patient preference)* COMPOUNDED PRESCRIPTION CPAP @ 11 cm of water with hu* MECLIZINE 25 MG TABLET Take 1 tablet by mouth every * POLYETHYLENE GLYCOL 3350 17 G* 1/2 scoop daily CHOLECALCIFEROL (VITAMIN D3) * Take one(1) tablet daily. ASPIRIN 81 MG CHEWABLE TABLET Take one(1) tablet daily. DAILY MULTIVITAMIN TABLET Take one(1) tablet daily. Problem List As Of Date 08/31/2018 Noted Resolved HALLUX VALGUS [M20.10] INVALID FOR* Tibialis tendinitis [M76.829] INVALID FOR*08/20/2017 PLANTAR FIBROMATOSIS [M72.2] INVALID FOR* Essential hypertension [I10] Mixed hyperlipidemia [E78.2] INVALID FOR* Urinary incontinence, urge [N39.41] INVALID FOR* Rectocele [N81.6] INVALID FOR*08/20/2017 Cystocele, midline [N81.11] INVALID FOR*08/20/2017 Osteoarthritis [M19.90] INVALID FOR* More... MAURISIO (obstructive sleep apnea) [G47.33] INVALID FOR* More... RLS (restless legs syndrome) [G25.81] INVALID FOR* Prescriptions ordered this encounter Disp Refills Start End CELECOXIB 200 MG CAPSULE 90 c* 1 08/31/2018 Route: ORAL Sig: Take 1 capsule by mouth once daily. Medications Discontinued During This Encounter celecoxib (CELEBREX) 200 mg capsule 90 c* 1 02/12/2018 08/31/2018 Class: [facility] Route: ORAL Sig: Take 1 capsule by mouth once daily. Disc: Reason for discontinue is not on file. Encounter Status:Closed by KIERAN BERNARDO CNP on 08/31/18 [facility] PROGRESSon 05-12-2018 PROGRESS HNO ID: [id number] Author: Cintia (Rt) Cheli Mcginnis Service: (none) Author Type: Pool Table Operator Type: Progress Notes Filed: 05/12/2018 8:25 AM Note Text: Radiology Service Progress Note PATIENT NAME: Vinay Ro DATE OF SERVICE: May 12, 2018 TIME: 8:07 AM PATIENT IDENTITY VERIFICATION COMPLETED USING TWO (2) METHODS: Patient confirmed name verbally and Date of . PATIENT GENDER DATA: Female. status: : No status: NO. PATIENT RELEVANT IMPLANT DATA REVIEWED: Not Applicable RADIOLOGY DEPARTMENT: General X-ray: Exam(s) Completed: Lower Extremity X-Ray(s): Tibia Fibula, Left and Ankle, Left: PERIPHERAL IV DATA: Not applicable SIGNED BY: RT Jonathan May 12, 2018 8:07 AM [facility] XR ANKLE 3V AP/LAT/OBL LTon 05-12-2018 XR ANKLE 3V AP/LAT/OBL LT * * *Final Report* * * DATE OF EXAM: May 12 2018 8:20AM [id number] - XR ANKLE 3V AP/LAT/OBL LT / PROCEDURE REASON: multiple diagnoses * * * * Physician Interpretation * * * * EXAM:XR TIBIA FIBULA 2V AP/LAT LT, XR ANKLE 3V AP/LAT/OBL LT HISTORY: Left ankle pain, unspecified chronicity Pain and swelling of left lower leg Pain and swelling of left lower leg COMPARISON:None IMPRESSION: There is no fracture, dislocation or destructive lesion. There are degenerative changes in the knee and intertarsal joints. There is plantar calcaneal spur and enthesophyte at the Achilles tendon insertion. There is mild diffuse demineralization. There is no focal soft tissue swelling. Outside Installer Apprentice: SHANNON Transcribe Date/Time: May 12 2018 9:07A Dictated by : GIL MARTÍNEZ MD This examination was interpreted and the report reviewed and electronically signed by: GIL MARTÍNEZ MD on May 12 2018 9:11AM EST [id number] Normal [facility] XR TIBIA FIBULA 2V AP/LAT LT on 05-12-2018 XR TIBIA FIBULA 2V AP/LAT LT * * *Final Report* * * DATE OF EXAM: May 12 2018 8:20AM [id number] - XR TIBIA FIBULA 2V AP/LAT LT / PROCEDURE REASON: multiple diagnoses * * * * Physician Interpretation * * * * EXAM:XR TIBIA FIBULA 2V AP/LAT LT, XR ANKLE 3V AP/LAT/OBL LT HISTORY: Left ankle pain, unspecified chronicity Pain and swelling of left lower leg Pain and swelling of left lower leg COMPARISON:None IMPRESSION: There is no fracture, dislocation or destructive lesion. There are degenerative changes in the knee and intertarsal joints. There is plantar calcaneal spur and enthesophyte at the Achilles tendon insertion. There is mild diffuse demineralization. There is no focal soft tissue swelling. Outside Installer Apprentice: [facility] Transcribe Date/Time: May 12 2018 9:07A Dictated by : GIL MARTÍNEZ MD This examination was interpreted and the report reviewed and electronically signed by: GIL MARTÍNEZ MD on May 12 2018 9:11AM EST [id number] Normal [facility] CNPNon 05-04-2018 CNPN Telephone (INTWS) ---- PLANK,VINAY A ([id number]) 1945 F Date Time Provider Department 05/04/18 KIERAN BERNARDO ([facility]) INTAngelicaWS During your visit today, we recorded the following information about you: Lilli Vale RN 05/04/2018 2:25 PM Signed Tricia calls from [employer], part of [employer] regarding MRI of left ankle. This has been reviewed by registered medical transcriptionist and he would need additional clinical information to consider this for coverage. A peer to peer would need completed before 05/09/18, to consider this for possible coverage. Please call for peer to peer. Case # [id number]. Please review and advise. CARLITA Davis LPN 05/05/2018 9:18 AM Signed Vero with [employer] part of [employer] calling with an updated phone number to call to to the peer to peer [phone] Option 4. Case # [id number]. Lilli Gomez RN 05/11/2018 8:54 AM Signed Moises Monge- reports PA for MRI has been denied. counseling services director did not approve request due to no plain x-ray results. Will mail letter with appeal options to Kieran Bernardo (reports they have a blocked fax # for Megan Bernardo- they are not allowed to fax to). Call with any questions, case # [id number]. Kieran Bernardo APRN.CNP 05/11/2018 10:06 AM Signed Can we please touch base with patient and let her know that the MRI was denied. They are requesting plain films to be completed first, will order xray if she is still having pain and swelling of the lower extremity. If symptoms are improving there is no need to proceed with imaging. CHAD Bass LPN 05/11/2018 10:11 AM Signed Pt notified, she noted no improvement, she will come in for xray. Kieran Bernardo APRN.CNP 05/11/2018 10:20 AM Signed Addended by: KIERAN BERNARDO CNP on: 05/11/2018 10:20 AM Modules accepted: Orders Allergies As of Date: 05/04/2018 Noted Allergy Reaction environmental [Other] 02/20/2006 Comments: ragweed VICODIN (HYDROCODONE-ACETAM INOPHE*12/03/2004 9 - Itching 14 - Other: See Comments Comments: red all over ZESTRIL (LISINOPRIL) 12/03/2004 3 - Cough Date Reviewed: 03/24/2018 Reviewed by: Georgette Sanabria Ma - Fully Assessed Reason for Visit: peer to peer for MRI [Other] Cmt: left ankle Primary Visit Diagnosis:Left ankle pain, unspecified chronicity [M25.572] Other Visit Diagnosis:Pain and swelling of left lower leg [M79.662, M79.89] Order(s):XR TIBIA FIBULA 2V AP/LAT LT [[id number]] Order #: [id number] FUTURE XR ANKLE GENERAL 3V AP/LAT/OBL LT [[id number]] Order #: [id number] FUTURE Prescriptions as of 05/04/2018 Sig: POTASSIUM CHLORIDE ER 10 MEQ * Take 2 capsules by mouth once* OMEPRAZOLE 20 MG CAPSULE,REBECA* Take 1 capsule by mouth once * HYDROCHLOROTHIAZIDE 25 MG TAB* Take 1 tablet by mouth once d* OXYBUTYNIN CHLORIDE ER 10 MG * Take 1 tablet by mouth once d* CELECOXIB 200 MG CAPSULE Take 1 capsule by mouth once * LOSARTAN 50 MG TABLET Take 1 tablet by mouth once d* ROPINIROLE 0.5 MG TABLET TAKE 1 TABLET THREE TIMES A D* VALSARTAN 160 MG TABLET Take 1 tablet by mouth once d* PRAVASTATIN 20 MG TABLET Take 1 tablet by mouth daily * BUDESONIDE 32 MCG/ACTUATION N* Use 2 Sprays in each nostril * SUCRALFATE 100 MG/ML ORAL SHARLA* Take 10 mL by mouth four time* DIAZEPAM 2 MG TABLET Take 2 mg by mouth as needed. BIOTIN ORAL Take by mouth. VITAMIN C ORAL Take by mouth. COMPOUNDED PRESCRIPTION Mask (per patient preference)* COMPOUNDED PRESCRIPTION CPAP @ 11 cm of water with hu* MECLIZINE 25 MG TABLET Take 1 tablet by mouth every * POLYETHYLENE GLYCOL 3350 17 G* 1/2 scoop daily CHOLECALCIFEROL (VITAMIN D3) * Take one(1) tablet daily. ASPIRIN 81 MG CHEWABLE TABLET Take one(1) tablet daily. DAILY MULTIVITAMIN TABLET Take one(1) tablet daily. Problem List As Of Date 05/04/2018 Noted Resolved HALLUX VALGUS [M20.10] INVALID FOR* Tibialis tendinitis [M76.829] INVALID FOR*08/20/2017 PLANTAR FIBROMATOSIS [M72.2] INVALID FOR* Essential hypertension [I10] Mixed hyperlipidemia [E78.2] INVALID FOR* Urinary incontinence, urge [N39.41] INVALID FOR* Rectocele [N81.6] INVALID FOR*08/20/2017 Cystocele, midline [N81.11] INVALID FOR*08/20/2017 Osteoarthritis [M19.90] INVALID FOR* More... MAURISIO (obstructive sleep apnea) [G47.33] INVALID FOR* More... RLS (restless legs syndrome) [G25.81] INVALID FOR* Encounter Status:Closed by RAMÓN WILLIAMSON LPN on 05/11/18 Normal [facility] US EXTREMITY MASS/FLUID KATHY LEFT COMPLTon 03-31-2018 US EXTREMITY MASS/FLUID KATHY LEFT COMPLT Performed at [facility] APPROVED BY: Wilbert Freedman MD EXAM TITLE: ULTRASOUND MASS/FLUID COLLECTION LEFT LOWER EXTREMITY DATE: 03/31/2018 08:25 COMPARISON: None. CLINICAL INDICATION/HISTORY: Patient reports localized swelling over the medial aspect of the left ankle. TECHNIQUE: Real-time ultrasound evaluation of the medial aspect of the left ankle was performed in the area of palpable concern. Ultrasound evaluation of the FINDINGS: There is mild soft tissue edema noted in the subcutaneous fat at the site of palpable concern. No mass or well-defined fluid collection is identified. IMPRESSION: There is mild soft tissue edema noted in the subcutaneous fat at the site of palpable concern over the medial aspect of the left ankle. If there is palpable area is of continued clinical concern a contrast-enhanced MRI of the left ankle would be the next study of choice. Normal [facility] CNOVon 03-24-2018 CNOV Office Visit (INTMWS) ---- VINAY RO ([id number]) 1945 F Date Time Provider Department 03/24/18 8:40 AM KIERAN BERNARDO (BRANNER MACHINE TENDER) INTMWS During your visit today, we recorded the following information about you: Temperature Pulse Respiration Blood pressure 97.7 degrees 72/minute 16/minute 128/84 Weight 97.1 kg Kieran Bernardo APRN.CNP 03/24/2018 9:04 AM Signed For now try to rest the left leg as much as possible with elevation and use of compression (Nuno wrap) especially when up ambulating. Ice the left ankle at least 3x daily. Kieran Bernardo APRN.CNP 03/24/2018 9:38 AM Signed HPI/CC: Vinay Ro is a 72 year old female with a history of onset 2 months ago. Patient reports ongoing left ankle swelling or a lump noted ~2 months ago without know injury. States she crossed her legs in a recliner and noted pain to the inner left ankle. She then noted some swelling of the area that seems to have gotten worse over the past few weeks. Pain to the area is described as a burning sensation. Aggravated with pressure and prolonged walking/standing. Slight improvement with compression from socks. Intensity: 10 Injury: No Previous ankle injury: No Previous foot No Difficulty ambulating: No Denies numbness, tingling, decreased sensation, decreased ROM, decreased strength ROS: as above, otherwise non-contributory. Reviewed relevant PMHx, PSHx, Social Hx, current medications and allergies. PHYSICAL EXAMINATION: BP 128/84 Pulse 72 Temp 36.5 ?C (97.7 ?F) (Temporal Artery) Resp 16 Wt 97.1 kg (214 lb) SpO2 98% BMI 34.54 kg/m? General Appearance: age-appropriate female Lungs: Clear to auscultation no wheezing or rhonchi Heart: RRR without murmur, gallop, or rubs. No ectopy Foot/Ankle: Skin intact: Yes Capillary refill: < 3 seconds Ecchymosis: No Erythema: No Swelling: Yes Tenderness: Yes: Over medial malleolus Gait: Intact Peripheral pulses: Normal Left Lower Extremity: Skin intact, noted varicosities Howard's negative ASSESSMENT/PLAN: 1. Left ankle swelling - ICD9: 719.07, ICD10: M25.472 - Etiology unclear, differentials include idiopathic soft tissue swelling, hematoma, tendonitis and vasculitis - US EXTREMITY MASS/FLUID COLLECTION LT - Recommend rest, ice, elevation and NSAIDs - Recommend compression with NUNO wrap - Follow up to be determined by imaging studies Kieran Bernardo APRN.BRANNER MACHINE TENDER Prescription instructions reviewed with patient as applicable. Potential red flag symptoms discussed with the patient. Reviewed appropriate action plan to take if red flag symptoms occur. Patient agreeable to treatment plan. Kieran Bernardo APRN.UMU Referring Provider: SELF [200] Allergies As of Date: 03/24/2018 Noted Allergy Reaction environmental [Other] 02/20/2006 Comments: ragweed VICODIN (HYDROCODONE-ACETAM INOPHE*12/03/2004 9 - Itching 14 - Other: See Comments Comments: red all over ZESTRIL (LISINOPRIL) 12/03/2004 3 - Cough Date Reviewed: 03/24/2018 Reviewed by: Georgette Sanabria Ma - Fully Assessed Reason for Visit: Mass [64] Cmt: L ankle lump, getting more painful x 3 months Primary Visit Diagnosis:Left ankle swelling [M25.472] Order(s):potassium chloride SR (MICRO-K) 10 mEq CR capsuleTake 2 capsules by mouth once daily.Disp: 180 capsuleRfl: 3 US EXTREMITY MASS/FLUID COLLECTION LT [[id number]] Order #: [id number] FUTURE Prescriptions as of 03/24/2018 Sig: POTASSIUM CHLORIDE ER 10 MEQ * Take 2 capsules by mouth once* OMEPRAZOLE 20 MG CAPSULE,REBECA* Take 1 capsule by mouth once * HYDROCHLOROTHIAZIDE 25 MG TAB* Take 1 tablet by mouth once d* OXYBUTYNIN CHLORIDE ER 10 MG * Take 1 tablet by mouth once d* CELECOXIB 200 MG CAPSULE Take 1 capsule by mouth once * LOSARTAN 50 MG TABLET Take 1 tablet by mouth once d* ROPINIROLE 0.5 MG TABLET TAKE 1 TABLET THREE TIMES A D* VALSARTAN 160 MG TABLET Take 1 tablet by mouth once d* PRAVASTATIN 20 MG TABLET Take 1 tablet by mouth daily * BUDESONIDE 32 MCG/ACTUATION N* Use 2 Sprays in each nostril * SUCRALFATE 100 MG/ML ORAL SHARLA* Take 10 mL by mouth four time* DIAZEPAM 2 MG TABLET Take 2 mg by mouth as needed. BIOTIN ORAL Take by mouth. VITAMIN C ORAL Take by mouth. COMPOUNDED PRESCRIPTION Mask (per patient preference)* COMPOUNDED PRESCRIPTION CPAP @ 11 cm of water with hu* [facility] 25 MG TABLET Take 1 tablet by mouth every * POLYETHYLENE GLYCOL 3350 17 G* 1/2 scoop daily CHOLECALCIFEROL (VITAMIN D3) * Take one(1) tablet daily. ASPIRIN 81 MG CHEWABLE TABLET Take one(1) tablet daily. DAILY MULTIVITAMIN TABLET Take one(1) tablet daily. Problem List As Of Date 03/24/2018 Noted Resolved HALLUX VALGUS [M20.10] INVALID FOR* Tibialis tendinitis [M76.829] INVALID FOR*08/20/2017 PLANTAR FIBROMATOSIS [M72.2] INVALID FOR* Essential hypertension [I10] Mixed hyperlipidemia [E78.2] INVALID FOR* Urinary incontinence, urge [N39.41] INVALID FOR* Rectocele [N81.6] INVALID FOR*08/20/2017 Cystocele, midline [N81.11] INVALID FOR*08/20/2017 Osteoarthritis [M19.90] INVALID FOR* More... MAURISIO (obstructive sleep apnea) [G47.33] INVALID FOR* More... RLS (restless legs syndrome) [G25.81] INVALID FOR* Other instructions from your clinician: For now try to rest the left leg as much as possible with elevation and use of compression (Nuno wrap) especially when up ambulating. Ice the left ankle at least 3x daily. Prescriptions ordered this encounter Disp Refills Start End POTASSIUM CHLORIDE ER 10 MEQ CAPSULE* 180 * 3 03/24/2018 Route: ORAL Sig: Take 2 capsules by mouth once daily. Medications Discontinued During This Encounter potassium chloride SR (MICRO-K) 10 m* 180 * 3 02/20/2017 03/24/2018 Route: ORAL Sig: Take 2 capsules by mouth once daily. Disc: Reason for discontinue is not on file. Encounter Status:Closed by KIERAN BERNARDO CNP on 03/24/18 Normal [facility] PROGRESSon 03-24-2018 PROGRESS HNO ID: [id number] Author: Kieran Bernardo Service: (none) Author Type: Nurse Practitioner Type: Progress Notes Filed: 03/24/2018 9:38 AM Note Text: HPI/CC: Vinay Ro is a 72 year old female with a history of onset 2 months ago. Patient reports ongoing left ankle swelling or a lump noted ~2 months ago without know injury. States she crossed her legs in a recliner and noted pain to the inner left ankle. She then noted some swelling of the area that seems to have gotten worse over the past few weeks. Pain to the area is described as a burning sensation. Aggravated with pressure and prolonged walking/standing. Slight improvement with compression from socks. Intensity: 4/10 Injury: No Previous ankle injury: No Previous foot No Difficulty ambulating: No Denies numbness, tingling, decreased sensation, decreased ROM, decreased strength ROS: as above, otherwise non-contributory. Reviewed relevant PMHx, PSHx, Social Hx, current medications and allergies. PHYSICAL EXAMINATION: BP 128/84 Pulse 72 Temp 36.5 ?C (97.7 ?F) (Temporal Artery) Resp 16 Wt 97.1 kg (214 lb) SpO2 98% BMI 34.54 kg/m? General Appearance: age-appropriate female Lungs: Clear to auscultation no wheezing or rhonchi Heart: RRR without murmur, gallop, or rubs. No ectopy Foot/Ankle: Skin intact: Yes Capillary refill: < 3 seconds Ecchymosis: No Erythema: No Swelling: Yes Tenderness: Yes: Over medial malleolus Gait: Intact Peripheral pulses: Normal Left Lower Extremity: Skin intact, noted varicosities Howard's negative ASSESSMENT/PLAN: 1. Left ankle swelling - ICD9: 719.07, ICD10: M25.472 - Etiology unclear, differentials include idiopathic soft tissue swelling, hematoma, tendonitis and vasculitis - US EXTREMITY MASS/FLUID COLLECTION LT - Recommend rest, ice, elevation and NSAIDs - Recommend compression with NUNO wrap - Follow up to be determined by imaging studies Kieran Bernardo APRN.UMU Prescription instructions reviewed with patient as applicable. Potential red flag symptoms discussed with the patient. Reviewed appropriate action plan to take if red flag symptoms occur. Patient agreeable to treatment plan. Kieran Bernardo APRN.CNP Normal [facility] Office Visit: postop surgery 12/19/16on 02-05-2017 Dietary management education, guidance, and counseling (procedure) yes Invalid Interpretation Code [facility] Work Phone: Documentation of current medications (procedure) Done Invalid Interpretation Code [facility] Work Phone: Fall risk assessment No Invalid Interpretation Code [facility] Work Phone: Tobacco smoking status NHIS Never Invalid Interpretation Code [facility] Work Phone: Tobacco use CPHS Never smoker Invalid Interpretation Code [facility] Work Phone: Microbiology: Acid Fast Bact Cult/Smon 05-16-2016 AFBCS . Invalid Interpretation Code [facility] Work Phone: Replaced Document: (P) Kem s Stainon 05-09-2016 FUNST . Invalid Interpretation Code [facility] Work Phone: Lab Report: Basic Metabolic Profile (BMP)on 04-05-2016 Anion gap 4 mmol/L Low 5-15 [facility] Work Phone: BUN/Creatinine Ratio 18.3 RATIO Invalid Interpretation Code 10-20 [facility] Work Phone: Calcium 9.4 mg/dL Invalid Interpretation Code 8.5-10.1 [facility] Work Phone: Chloride 103 mmol/L Invalid Interpretation Code 98-107 [facility] Work Phone: CO2 29.0 mmol/L Invalid Interpretation Code 21.0-32.0 [facility] Work Phone: Creatinine 0.77 mg/dL Invalid Interpretation Code 0.55-1.02 [facility] Work Phone: Creatinine 49.70 mL/min Invalid Interpretation Code [facility] Work Phone: eGFR (non-black) 79 mL/min/{1.73_m2} Invalid Interpretation Code >60 [facility] Work Phone: eGFR (non-black) 96 mL/min/{1.73_m2} Invalid Interpretation Code >60 [facility] Work Phone: Glucose mass conc 125 mg/dL High 70-110 [facility] Work Phone: Potassium molar conc 4.2 mmol/L Invalid Interpretation Code 3.5-5.1 [facility] Work Phone: Sodium 136 mmol/L Invalid Interpretation Code 136-145 [facility] Work Phone: Urea nitrogen 14 mg/dL Invalid Interpretation Code 7-18 [facility] Work Phone: Lab Report: CBC-Complete Blo od Cnt No Diffon 04-05-2016 Erythrocyte distribution width Auto Ratio (RBC) 12.5 % Invalid Interpretation Code 11.6-14.6 [facility] Work Phone: Erythrocytes (RBC) 4.30 10*6/uL Invalid Interpretation Code 4.2-5.4 [facility] Work Phone: Hematocrit (HCT) 38.8 % Invalid Interpretation Code 37-47 [facility] Work Phone: Hemoglobin mass conc (Bld) 13.2 g/dL Invalid Interpretation Code 12.0-15.0 [facility] Work Phone: MCH 30.7 pg Invalid Interpretation Code 27.0-32.0 [facility] Work Phone: MCHC mass conc (RBC) 34.0 G/GL Invalid Interpretation Code 32-36 [facility] Work Phone: MCV 90.2 fL Invalid Interpretation Code 81-99 [facility] Work Phone: Platelets 214 10*3/mm3 Invalid Interpretation Code 150-450 [facility] Work Phone: PMV by German 10.9 fL Invalid Interpretation Code 6.2-12.0 [facility] Work Phone: RDW SD 40.9 fL Invalid Interpretation Code 35.1-43.9 [facility] Work Phone: WBC (Leukocytes) 13.9 10*3/uL High 4.4-11.0 [facility] Work Phone: Lab Report: CBC W/Diff, Auto matedon 04-03-2016 Absolute Neut 4.5 X10 3/UL Invalid Interpretation Code 2.0-7.7 [facility] Work Phone: Basophils/100 WBC Auto (Bld) 0.4 % Invalid Interpretation Code 0-1 [facility] Work Phone: Eosinophils/100 leukocytes 1.2 % Invalid Interpretation Code 0-5 [facility] Work Phone: Immature granulocytes/100 WBC (Bld) 0.100 % Invalid Interpretation Code 0.0-0.9 [facility] Work Phone: Lymphocytes 2.60 X10 3/UL Invalid Interpretation Code 0.83-4.51 [facility] Work Phone: Lymphocytes/100 leukocytes 32.4 % Invalid Interpretation Code 19-41 [facility] Work Phone: Monocytes/100 leukocytes 9.4 % Invalid Interpretation Code 0-10 [facility] Work Phone: Neutrophils/100 WBC Auto (Bld) 56.5 % Invalid Interpretation Code 47-70 [facility] Work Phone: Lab Report: Prealbuminon Prealbumin 19.3 mg/dL Low 20.0-40.0 [facility] Work Phone: Vital Signs Date Time Vital Sign Value Performing Clinician Felipe byrd 02-05-2017 08:08-0400 BMI (Body Mass Index) 31.19 kg/m2 Brennen Hopper MD [facility] Work Phone: 02-05-2017 08:08-0400 Body Temperature 96.7 [degF] Brennen Hopper MD [facility] Work Phone: 02-05-2017 08:08-0400 BP Diastolic 80 mm[Hg] Brennen Hopper MD [facility] Work Phone: 02-05-2017 08:08-0400 BP Systolic 132 mm[Hg] Brennen Hopper MD [facility] Work Phone: 02-05-2017 08:08-0400 BSA (Body Surface Area) 2.09 m2 Brennen Hopper MD [facility] Work Phone: 02-05-2017 08:08-0400 Height 173.99 cm Brennen Hopper MD [facility] Work Phone: 02-05-2017 08:08-0400 Pulse (Heart Rate) 79 /min [facility] Work Phone: 02-05-2017 08:08-0400 Respiratory Rate 16 /min Brennen [facility] Work Phone: 02-05-2017 08:08-0400 Weight 94.44 kg Brennen Hedrick [facility] Work Phone: Encounters Encounter Date Encounter Type Care Provider Facility Start: 03-31-2018 Patient encounter procedure KIERAN (BRANNER MACHINE TENDER) [facility] Procedures Date Procedure Procedure Detail Performing Clinician [...] 6 weeks Follow Up Appt 6 weeks [facility] Work Phone: Start: 01-06-2017 End: 02-25-2017 Follow Up Appt 1 month Follow Up Appt 1 month [facility] Work Phone: Start: 12-25-2016 End: 02-25-2017 Follow up Appt 1 week Follow up Appt 1 week [facility] Work Phone: Start: 12-25-2016 End: 12-25-2016 OT-Hand Therapy OT-Hand Therapy [facility], [address] [place] [address], [id number] [facility] Work Phone: Start: 12-05-2016 End: 12-25-2016 Follow Up Appt Other Follow Up Appt Other [facility] Work Phone: Start: 07-10-2016 End: 07-12-2016 Follow Up Appt 6 months Follow Up Appt 6 months [facility] Work Phone: Start: 06-26-2016 End: 07-12-2016 Follow Up Appt 2 weeks Follow Up Appt 2 weeks [facility] Work Phone: Start: 06-05-2016 End: 07-12-2016 Follow up Appt 3 weeks Follow up Appt 3 weeks [facility] Work Phone: Start: 05-22-2016 End: 07-12-2016 Follow Up Appt 2 weeks Follow Up Appt 2 weeks [facility] Work Phone: Start: 05-08-2016 End: 05-17-2016 Follow Up Appt 2 weeks Follow Up Appt 2 weeks [facility] Work Phone: Start: 04-24-2016 End: 05-17-2016 Follow Up Appt 2 weeks Follow Up Appt 2 weeks [facility] Work Phone: Start: 04-09-2016 End: 05-17-2016 Follow Up Appt 2 weeks Follow Up Appt 2 weeks [facility] Work Phone: Patient Education [facility] Work Phone: Summary Purpose Family History No Family History Records FoundNo Family History Records FoundNo Family History Records Found Advance Directives No Advanced Directives Records FoundNo Advanced Directives Records FoundNo Advanced Directives Records Found Additional Source Comments INFORMATION SOURCE (unrecogn ized section and content) DATE CREATED AUTHOR 04/02/2018 [facility] DATE CREATED AUTHOR AUTHOR'S ORGANIZ ATION 04/03/2018 [facility] DATE CREATED AUTHOR AUTHOR'S ORGANIZ ATION 03/15/2019 [facility] FOR RECORDS PERTAINING TO PATIENTS WHO ARE [...] BE BASED ON THE PRIMARY CLINICAL RECORDS. [employer] [facility]. provides no warranty or guarantee of the accuracy or completeness of information in this document.
== END 2024-02-24 19:17 | disposition home or self-care (01) ==
PROVIDERS: Emergency Provider Emergency Medicine; PCP Internal Medicine; Visit Provider Emergency Medicine
DX: R19.5 Other fecal abnormalities (principal); R06.02 Shortness of breath; I10 Essential (primary) hypertension; N17.9 Acute kidney failure, unspecified; E78.00 Pure hypercholesterolemia, unspecified; Z79.82 Long term (current) use of aspirin; Z79.899 Other long term (current) drug therapy
CPT/HCPCS: 71045; 74176; 80053; 81001; 83690; 83880; 84484; 85025; 85610; 85730; 93005; 96360; 99284; J7030; A4216

== ENCOUNTER → 2024-03-02 | Outpatient (CLI) | payer MEDICARE, SELFPAY ==
[2024-03-02 09:24] LABS: Absolute Lymphocyte Count 2.01 X10^3/uL (0.83-4.51); Absolute Neutrophil Count 4.4 X10^3/uL (2.0-7.7); Basophil# 0.07 X10^3/uL; Basophil% 0.9 % (0-1); Eosinophil# 0.15 X10^3/uL; Hematocrit 40.7 % (37-47); Lymphocyte # 2.01 X10^3/ul (0.83-4.51); Lymphocyte % 26.8 % (19-41); Mean Corp Hgb Conc 31.9 g/dL (32-36); Mean Corpuscular Hgb 29.5 pg (27.0-32.0); Mean Corpuscular Volume 92.5 fL (81-99); Mean Platelet Vol. 9.6 fl (6.2-12.0); Monocyte# 0.74 X10^3/uL; Monocyte% 9.9 % (0-10); NRBC Flagged by Analyzer 0 % (0-5); Neutrophil # 4.39 X10^3/uL (2.7-7.7); Neutrophil % 58.5 % (47-70); Platelet Count 324 K/mm3 (150-450); RBC Distribution Width CV 13.7 % (11.6-14.6); RBC Distribution Width SD 46.6 fl (35.1-43.9); White Blood Count 7.5 K/mm3 (4.4-11.0)
[2024-03-04 07:09] LABS: Calprotectin, Stool 174 ug/g (0-120)
== END | disposition home or self-care (01) ==
LOC: LAB 09:01
PROVIDERS: PCP Internal Medicine; Referring Provider Student in an Organized Health Care Education/Training Program; Visit Provider Student in an Organized Health Care Education/Training Program
DX: K92.2 Gastrointestinal hemorrhage, unspecified (principal); K58.9 Irritable bowel syndrome, unspecified
CPT/HCPCS: 36415; 82274; 83630; 83993; 85025

== ENCOUNTER 2024-03-29 07:00 | Day surgery (SDC) | payer MEDICARE, SELFPAY ==
[2024-03-29] VITALS (7 sets, daily range): BP systolic 99–157; BP diastolic 59–70; PULSE 70–74; RESP 14–16; TEMP 36–36.1; O2SAT 94–97; BMI 33.4
--- NOTE | 2024-03-29 07:23 | PCM.PRE.AN2 ---
ASA Classification* ASA Classification ASA Classification: 2 Assessment & Plan Anesthesia* Anesthesia Assessment Anesthesia Assessment: Discussed sedation and/or anesthesia options, risks, benefits, and alternatives with patient/parents/legal guardian/POA. Questions invited. The patient/parents/legal guardian/POA seems to understand and agrees to proceed with anesthesia plan. Reviewed the physical assessment, medical history, allergy history and patient home medications list prior to surgery/procedure/anesthetic and documented any changes. Performed airway and anesthesia risk assessments. Anesthesia Type Anesthesia Type: MAC Anesthesia Focused Assessment* Temperature: 96.9 F Pulse Rate: 70 Blood Pressure: 157/70 Respiratory Rate: 16 Pulse Ox: 97 Airway Assessment Mouth opens: >3 cm Mallampati Score: II Focused Labs Anesthesia Preop lab: CBC WBC 7.5 K/mm3 (4.4-11.0) 03/02/24 09:09 RBC 4.40 M/mm3 (4.2-5.4) 03/02/24 09:09 Hgb 13.0 g/dL (12.0-15.0) 03/02/24 09:09 Hct 40.7 % (37-47) 03/02/24 09:09 Plt Count 324 K/mm3 (150-450) 03/02/24 09:09 CHEMISTRY Potassium 4.5 mmol/L (3.5-5.1) 02/24/24 15:55 Sodium 135 mmol/L (136-145) L 02/24/24 15:55 Magnesium 1.7 mg/dL (1.6-2.6) 11/06/18 09:26 BUN 35 mg/dL (7-18) H 02/24/24 15:55 Creatinine 1.55 mg/dL (0.55-1.02) H 02/24/24 15:55 Glucose 126 mg/dL (74-106) H 02/24/24 15:55 POC Glucose 136 mg/dL (70-110) H 10/25/19 09:51 COAG PT 14.0 SECONDS (11.7-14.9) 02/24/24 16:40 Pre-Assessment Diagnosis/Proposed Procedure Planned Operative Procedure(s): EGD Anesthesia History Anesthesia History - histologic technician: Anesthesia History - histologic technician Hx Hospitalization No 03/24/24 16:09 Any Problems With Anesthesia Yes: PONV 03/24/24 16:09 Cholinesterase deficiency No 03/24/24 16:09 You/Your Family Experience No 03/24/24 16:09 fever (hyperthermia) with Relationship Recent Exposure to Contagious No 05/21/23 07:37 Disease Does patient have nerve No 03/24/24 16:09 stimulator Patient instructed to have device shut off --Does patient have Pacemaker No 03/29/24 07:16 or ICD? When Was Last Pacemaker Check QUESTION #4 FULL TEXT: You/Your Family Experience fever (hyperthermia) with Anesthesia Last Oral Intake Last Oral intake: Last Oral Intake NPO since 19:00 03/29/24 07:16 Meds taken in AM with sips of No 03/29/24 07:16 water? 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 - histologic technician: PONV - histologic technician Female Yes 03/24/24 16:09 HX of Motion Sickness Yes 03/24/24 16:09 HX of N/V After Surgery Yes 03/24/24 16:09 Non-Smoker Yes 03/24/24 16:09 Duration of Surgery greater No 03/24/24 16:09 than 60 minutes Number of Risk Factors 4 03/24/24 16:09 PONV Score Severe Risk 03/24/24 16:09 Height & Weight Height & Weight: Anesthesia: Height & Weight Height 5 ft 6 in 03/29/24 07:16 Weight: 93.984 kg 03/29/24 07:16 Body Mass Index (BMI) 33.4 03/29/24 07:16 Respiratory Assessment Respiratory Assessment - histologic technician: Respiratory Tract Infection Hx - histologic technician Hx Respiratory Tract Infection No 03/24/24 16:09 STOP Sleep Apnea STOP Sleep Apnea - histologic technician: STOP Sleep Apnea - histologic technician Hx Hypertension Yes 03/24/24 16:09 Hx Sleep Apnea No 03/24/24 16:09 CPAP No 03/24/24 16:09 BIPAP No 03/24/24 16:09 Do you snore loudly (louder No 03/24/24 16:09 than talking or can be heard Do you often feel tired/ No 03/24/24 16:09 fatigued/ sleepy during daytime? Has anyone observed you stop No 03/24/24 16:09 breathing during sleep? STOP Results Negative 03/24/24 16:09 QUESTION #5 FULL TEXT : Do you snore loudly (louder than talking or can be heard through closed doors)? 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 Specify any problems Hx of Preganancy in last 3 N/A 03/24/24 16:09 Months Nurse Filling Out Transfusion NBUCHER 03/24/24 16:09 & Questions: Date: 03/24/24 03/24/24 16:09 Time: 16:10 03/24/24 16:09 Patient unable to answer at this time (ie. confused, unrespo /Reproduction History /Reproductive History - histologic technician: /Reproductive Hx- histologic technician Hx Now Gestational Age (in weeks): EDC: Hx Hx Para Hx Section SAB No 03/24/24 16:09 PFSH Medical History PONV (postoperative nausea and vomiting) GI bleed Dark stools Left renal mass Abnormal CT of the abdomen Dupuytren contracture of right hand LLQ pain Obesity (BMI 30-39.9) Small lymphocytic lymphoma Wears glasses Wears partial dentures Wears dentures Seasonal allergies Non-smoker Sinusitis GERD (gastroesophageal reflux disease) Borderline type 2 diabetes mellitus Right hand pain Hyperglycemia Chronic sinusitis Shortness of breath Bilateral lower extremity edema Flu vaccine need Health care maintenance Tinnitus H/O tinnitus Chronic vertigo Cataracts, bilateral Back problem Actinic keratosis Cancer of skin of left ear Dupuytren's contracture Open cat bite of hand Cat bite of right hand with infection Restless leg syndrome Arthritis Vertigo High cholesterol Chronic hypertension Generalized osteoarthritis Home Medications ?Medication ?Instructions ?Recorded ?Last Taken ?Type multivitamin with iron 1 tab PO DAILY 03/31/13 03/28/24 History biotin 2,500 mcg capsule 2,500 mcg PO ONCE 07/15/17 03/28/24 History acetaminophen 325 mg tablet 650 mg (2 x 325 mg) PO Q4H PRN PRN 05/21/23 03/28/24 Rx Pain Or Fever #0 tabs amlodipine 5 mg tablet 7.5 mg (1.5 x 5 mg) PO DAILY 3 08/22/23 03/28/24 Rx months #135 tabs hydrochlorothiazide 25 mg tablet See Rx Instructions .Route 08/22/23 03/28/24 Rx .COMPLEX #90 tabs ropinirole 0.5 mg tablet 0.5 mg PO TID #360 tabs 08/22/23 03/28/24 Rx celecoxib 200 mg capsule (Celebrex) 200 mg PO DAILY PRN pain #90 caps 09/16/23 03/28/24 Rx losartan 100 mg tablet 100 mg PO DAILY 3 months #90 tabs 11/19/23 03/28/24 Rx potassium chloride 20 mEq 20 meq PO BID #180 tabs 01/26/24 03/28/24 Rx tablet,extended release pantoprazole 40 mg tablet,delayed 40 mg PO BID 3 months #180 tabs 02/19/24 03/28/24 Rx release vibegron 75 mg tablet (Gemtesa) 75 mg PO DAILY 03/24/24 03/28/24 History Allergy/AdvReac Type Severity Reaction Status Date / Time lisinopril (From Zestril) AdvReac Intermediate Cough Verified 03/29/24 07:21 hydrocodone bitartrate (From AdvReac Mild Itching Verified 03/29/24 07:21 Vicodin) Family History Father Myocardial infarction Heart disease Hypertension Mother Breast cancer Grandmother Breast cancer Sister Lung cancer Seizures Surgical History History of lymph node excision History of left knee replacement History of colonoscopy History of lymph node biopsy History of cataract extraction H/O vaginal hysterectomy History of hysterectomy Cancer of skin of left ear Cat bite of right hand including fingers with infection Dupuytren contracture cancer removed S/P appendectomy S/P arthroscopy of knee History of total right knee replacement Social History Smoking Status: Never smoker alcohol intake: never substance use type: does not use caffeine: Yes what type of physical activity do you participate in: none seatbelt use: always do you feel safe at home: Yes additional social history: - Manuel SUN EXPOSURE: FREQUENTLY Review of Systems (Anesthesia) ROS Narrative System reviewed and no additional complaints, except as documented.
--- NOTE | 2024-03-29 07:43 | PCM.HP.BLA ---
History and Physical Date of Admission: 03/29/24 HPI Chief Complaint: +FOBT Details: VINAY TALAVERA, is a 78 F who presents to the office today for establishment with [facility]. For a month now pt has been having burning esophageal/epigastric pain, nausea and black stools. She saw her PCP who did stool tests which were positive for blood 3x. She has had GERD for a long time and has had an EGD w/ Dr. Wren over 10 years ago which she believes was normal. She presented to the ED .09.11 with the same symptoms and was subsequently discharged home with instruction for f/u with GI. She has been on pantoprazole 40 mg BID and Carafate 1 gram daily for 2 weeks now. SHe is no longer having black stools but continues with pain. Her stools are soft whcih is not typical for her. She denies abdominal pain, constipation, or diarrhea, CT abdomen pelvis 02.24.24; Findings which may be consistent with nonspecific gastritis.. Hyperdense left renal nodule consistent with hemorrhagic cyst unchanged since previous study No evidence for small bowel obstruction or other acute abnormality post hysterectomy and appendectomy ROS Const Constitutional: No fatigue, fever(s) or weight change ENT ENT: Positive for difficulty swallowing Gastro GI: Positive for diarrhea, heartburn, difficulty swallowing and nausea/dyspepsia; No abdominal pain, belching, bloating, change in bowel habits, change in stool character, coffee ground emesis, constipation, cramping, feeling full early, excessive flatus, incontinent of stools, Vomiting blood/hematemesis, Blood in stool, loose stools, Black,tarry stools, pain with swallowing, vomiting or other Musc Musculoskeletal: Positive for muscle cramps, Arthritis and restless legs; No joint pain Skin Skin: No yellowing of the eye or itchy eyes Neuro Neurology: Positive for dizziness and restless legs Psych Psychiatric: No anxiety and No depression Endo Endocrine: No fatigue or weight change Aller/Imm Allergy/Immunologic: No itchy eyes Rodolfo/Lymp Hematologic/Lymphatic: No easy bleeding or easy bruising Exam Const General: cooperative and comfortable Nutritional Appearance: average body habitus and well nourished HENMT Head: normal to inspection Ears: hearing grossly normal bilaterally Nose: external nose normal Face and sinus: normal facial exam Mouth: oral mucosae normal Throat: posterior oropharynx normal Eyes General: appearance normal, both eyes and all related structures Neck Neck: normal visual inspection Chest Chest palpation & inspection: normal inspection of the chest and normal palpation of entire chest wall Resp Effort & Inspection: normal respiratory effort Auscultation: Bilateral: Clear to Auscultation Cardio Palpation: normal PMI Rate: regular rate Rhythm: regular rhythm GI Inspection: normal to inspection Auscultation: normal bowel sounds Percussion: normal to percussion Palpation: no hepatosplenomegaly Skin General: no rashes or lesions noted Neuro General: patient alert Extrem General: normal to inspection Psych Affect: normal affect Assessment and Plan Assessment and Plan (1) Acute GI bleeding: Status: Acute Plan: This is a 78 yo female pt here today for evaluation of dark stools, epigastric pain and nausea x1 month. CT scan showing thickening in the stomach likely related to gastritis as well as diverticulosis. Her stool was positive for blood on three occasions. Her last hemoglobin was stable at 13.2. I will order repeat CBC for her to have done next week to monitor her hemoglobin. She will continue PPI BID and Carafate daily. She will undergo EGD at the soonest available appointment. We will consider colonoscopy in the future but not at this time as the bleeding it likely in the upper GI tract. I will order stool tests for blood, infection or inflammation as she is having looser stools. -EGD -Continue PPI and Carafate -CBC -Stool test -f/u after procedure Orders: Orders CBC W/Diff, Automated 5 Days K92.2 - Gastrointestinal hemorrhage, unspecified Calprotectin, Stool Today K92.2 - Gastrointestinal hemorrhage, unspecified Stool Occult Blood iFOB Today K92.2 - Gastrointestinal hemorrhage, unspecified Stool Lactoferrin/WBC Today K58.9 - Irritable bowel syndrome, unspecified, K92.2 - Gastrointestinal hemorrhage, unspecified I have examined the patient and the H&P has been reviewed. There are no clinical changes since date of exam.
--- NOTE | 2024-03-29 08:30 | EGD_PTH ---
PATIENT: VINAY TALAVERA LOC: EN U#:[id number] AGE/SX: 78/F ROOM: RE03/29/[address]: Dr. Moustapha Stanley DO : 1945 BED: DIS: 03/29/2024 SPEC #: [id number] RECD: 03/29/24 12:29 STATUS: VIVEK SHELIA #: [id number] KATHY: 03/29/24 08:[address]: Moustapha Stanley DEPT: SURGICAL PATHOLOGY RECD BY: Ulices Olmedo ENTERED: 03/29/24 12:54 SP TYPE: EGD BIOPSY OT DR: Dr. Eboni Katz MD Tissues: A - Duodenum, NOS B - Gastric mucous membrane C - Esophagus, NOS Procedures: Special Stain Group I Surgery Specimen Level IV Alcian Blue/PAS (control) HEADER OPERATION: EGD with biopsy PRE-OP DIAGNOSIS: Acute bleeding TISSUE SUBMITTED: A- Duodenal biopsy, B- Gastric body biopsy, C- Distal esophagus biopsy MICROSCOPIC DIAGNOSIS A. Duodenum, biopsy: No pathologic change. B. Gastric body, biopsy: Minimal chronic inflammation. See comment. C. Distal esophagus, biopsy: Gastroesophageal junction mucosa with mild chronic inflammation and focal acute inflammation. Focal changes of reflux. No evidence of goblet cell metaplasia. See comment. 03/30/2024 COMMENT B. The results of immunohistochemistry for Helicobacter pylori will be reported separately ([id number]). C. Alcian blue/PAS stain with matched control supports the above diagnosis. MICROSCOPIC DESCRIPTION Slides are reviewed. GROSS DESCRIPTION A. Received in fixative is one container labeled with the patient's name and designated Duodenal biopsy. The specimen consists of two irregular fragments of light amin soft tissue that in aggregate measure 0.6 x 0.5 x 0.1 cm. The specimen is totally submitted in one cassette. B. Received in fixative is one container labeled with the patient's name and designated Gastric body biopsy. The specimen consists of two irregular fragments of light amin soft tissue that in aggregate measure 1.0 x 0.5 x 0.1 cm. The specimen is totally submitted in one cassette. C. Received in fixative is one container labeled with the patient's name and designated Distal esophagus biopsy. The specimen consists of multiple irregular fragments of light amin soft tissue that in aggregate measure 1.0 x 0.7 x 0.1 cm. The specimen is totally submitted in one cassette. 03/29/2024 TC:3 CPT:50688e9,96503
--- NOTE | 2024-03-29 08:30 | IMM_PTH ---
PATIENT: VINAY TALAVERA LOC: EN U#:[id number] AGE/SX: 78/F ROOM: RE03/29/[address]: Dr. Moustapha Stanley DO : 1945 BED: DIS: 03/29/2024 SPEC #: [id number] RECD: 03/29/24 13:43 STATUS: VIVEK REMichel #: [id number] KATHY: 03/29/24 08:[address]: Moustapha Stanley DEPT: IMMUNOHISTOCHEMISTRY RECD BY: Kurt Woody ENTERED: 03/29/24 13:43 SP TYPE: IMMUNO OTHR DR: Dr. Eboni Katz MD Tissues: B - Gastric mucous membrane Procedures: H Pylori (initial) PHYSICIAN & INSTITUTION [place] [id number] SPECIMEN INFORMATION: Tissue Source: B- Gastric body biopsy Clinical Info: Acute bleeding Specimen Number: [id number] CPT code: 22838 METHODOLOGY: Deparaffinized sections of prefer/formalin-fixed tissue or PAP/DQ stained slides are incubated with monoclonal/polyclonal antibodies/oligonucleotide probes. Localization is made via biotin free immunoperoxidase method. Appropriate controls are performed and reacted as expected. Results on target cell population are indicated in the following table: RESULTS: ANTIBODY / CLONE RESULT Block B H Pylori (polyclonal) negative These tests were developed and their performance characteristics determined by [facility]. They may not have been cleared or approved by the U.S. Food and Drug Administration. The FDA has determined that such clearance or approval is not necessary. The above immunohistochemical/dualISH markers are ordered and reviewed by the Pathologist. INTERPRETATION: B. Gastric body, biopsy: Negative for Helicobacter pylori organisms. 03/30/2024
--- NOTE | 2024-03-29 09:02 | OP.CCLET_ITS ---
03/29/2024 Eboni Katz MD [address] [place] [address] [place] [address] Re : Upper GI endoscopy procedure for Georgia Ro Dear Dr. Katz This procedure was performed on Friday, March 29, 2024. My impressions and recommendations are as follows: Impressions : - Z-line irregular, 39 cm from the incisors. Biopsied. - Small hiatal hernia. - A single gastric polyp. - Erythematous mucosa in the gastric body. Biopsied. - No gross lesions in the first portion of the duodenum. Biopsied. Recommendations : - Discharge patient to home. - Resume previous diet. - Continue present medications. - Await pathology results. My findings are described in the full procedure note, which is enclosed. If I can be of further assistance, please feel free to contact me at . Sincerely, Moustapha Stanley, 03/29/2024 9:02:24 AM This report has been signed electronically.
--- NOTE | 2024-03-29 09:02 | OP.EGD_ITS ---
Patient Name: Georgia Ro Procedure Date: 03/29/2024 8:48 AM Date of : 1945 Age: 78 Procedure: Upper GI endoscopy Indications: Epigastric abdominal pain, Functional Dyspepsia Providers: Moustapha Stanley DO Referring MD: Eboni Katz MD Medicines: Monitored Anesthesia Care Patient Profile: This is a 78 year old female. Refer to note in patient chart for documentation of history and physical. Patient has symptoms of chronic epigastric abdominal pain, chronic dyspepsia and acute nausea. Complications: No immediate complications. Procedure: Pre-Anesthesia Assessment: - Prior to the procedure, a History and Physical was performed, and patient medications and allergies were reviewed. The patient is competent. The risks and benefits of the procedure and the sedation options and risks were discussed with the patient. All questions were answered and informed consent was obtained. Patient identification and proposed procedure were verified by the physician in the pre-procedure area. Mental Status Examination: alert and oriented. Airway Examination: normal oropharyngeal airway and neck mobility. Respiratory Examination: clear to auscultation. CV Examination: normal. Prophylactic Antibiotics: The patient does not require prophylactic antibiotics. Prior Anticoagulants: The patient has taken no anticoagulant or antiplatelet agents except for NSAID medication. ASA Grade Assessment: II - A patient with mild systemic disease. After reviewing the risks and benefits, the patient was deemed in satisfactory condition to undergo the procedure. The anesthesia plan was to use monitored anesthesia care (MAC). Immediately prior to administration of medications, the patient was re-assessed for adequacy to receive sedatives. The heart rate, respiratory rate, oxygen saturations, blood pressure, adequacy of pulmonary ventilation, and response to care were monitored throughout the procedure. The physical status of the patient was re-assessed after the procedure. After obtaining informed consent, the endoscope was passed under direct vision. Throughout the procedure, the patient's blood pressure, pulse, and oxygen saturations were monitored continuously. The gastroscope was introduced through the mouth, and advanced to the second part of duodenum. The upper GI endoscopy was accomplished without difficulty. The patient tolerated the procedure well. Scope In: 8:47:57 AM Scope Out: 8:55:14 AM Total Procedure Duration Time 0 hours 7 minutes 17 seconds Findings: The Z-line was irregular and was found 39 cm from the incisors. Biopsies were taken with a cold forceps for histology. Verification of patient identification for the specimen was done. Estimated blood loss was minimal. A small hiatal hernia was present. A single 4 mm hyperplastic polyp with no bleeding and no stigmata of recent bleeding was found in the gastric body. Patchy mildly erythematous mucosa without bleeding was found in the gastric body. Biopsies were taken with a cold forceps for histology. Verification of patient identification for the specimen was done. Estimated blood loss was minimal. Biopsies were taken with a cold forceps for Helicobacter pylori testing. Verification of patient identification for the specimen was done. Estimated blood loss was minimal. No gross lesions were noted in the first portion of the duodenum. Biopsies were taken with a cold forceps for histology. Verification of patient identification for the specimen was done. Estimated blood loss was minimal. Impression: - Z-line irregular, 39 cm from the incisors. Biopsied. - Small hiatal hernia. - A single gastric polyp. - Erythematous mucosa in the gastric body. Biopsied. - No gross lesions in the first portion of the duodenum. Biopsied. Recommendation: - Discharge patient to home. - Resume previous diet. - Continue present medications. - Await pathology results. Procedure Code(s): --- Professional --- 37319, Esophagogastroduodenoscopy, flexible, transoral; with biopsy, single or multiple CPT copyright 2021 [employer]. All rights reserved. The codes documented in this report are preliminary and upon library historian review may be revised to meet current compliance requirements. Moustapha Stanley DO 03/29/2024 9:02:24 AM This report has been signed electronically. Number of Addenda: 0 Note Initiated On: 03/29/2024 8:48 AM
--- NOTE | 2024-03-29 09:05 | PCM.POST.ANE ---
Anesthesia: Postop Eval I Current Vital Signs Temperature: 97 F Pulse Rate: 74 Blood Pressure: 99/61 Respiratory Rate: 16 Pulse Ox: 94 Oxygen Delivery Method: Room Air Assessment Airway patent: Yes Spontaneous unlabored respirations: Yes Mental status: Asleep nausea: No Vomiting: No Anesthesia Complication: No Fluid Hydration Crystalloid volume administer (ml): 30 Total IV fluid infused: 30 Progress Note Anesthesia document: Postop Eval 1 completed: Yes
--- NOTE | 2024-03-29 09:19 | PCM.POSTANE2 ---
Anesthesia Postop Eval I Sum Postop Eval Completion status Anesthesia document: Postop Eval 1 completed: Yes Anesthesia Postop Eval I Summary Anesthesia Postop Eval I Summary: Anesthesia Postop Eval I: Assessment Summary Airway patent Yes 03/29/24 09:06 [email or web address] Spontaneous unlabored Yes 03/29/24 09:06 [email or web address] respirations Mental status Asleep 03/29/24 09:06 [email or web address] nausea No 03/29/24 09:06 [email or web address] Vomiting No 03/29/24 09:06 [email or web address] Anesthesia Postop Eval I: Fluid Summary Crystalloid volume administer 30 03/29/24 09:06 [email or web address] (ml) Colloids volume administered ( ml) Blood Product volume administered (ml) Total IV fluid infused 30 03/29/24 09:06 [email or web address] Anesthesia Postop Eval I: Summary Notes Anesthesia Complication No 03/29/24 09:06 [email or web address] Anesthesia Complication Comment: Post-operative progress note Anesthesia: Postop Eval II Evaluation Mental status: Awake Pain Level: 0 nausea: No Vomiting: No
== END 2024-03-29 09:33 | disposition home or self-care (01) ==
LOC: EN 07:00 → AC 07:03
PROVIDERS: PCP Internal Medicine; Referring Provider Internal Medicine; Visit Provider Internal Medicine Gastroenterology
PROC: 0DJ08ZZ Inspection of Upper Intestinal Tract, Via Natural or Artificial Opening Endoscopic (ICD-10-PCS; CPT 43235; principal; 2024-03-29 08:25)
DX: K21.9 Gastro-esophageal reflux disease without esophagitis (principal); K44.9 Diaphragmatic hernia without obstruction or gangrene; K31.7 Polyp of stomach and duodenum; K58.9 Irritable bowel syndrome, unspecified; I10 Essential (primary) hypertension; Z79.899 Other long term (current) drug therapy
CPT/HCPCS: 43239; 88305; 88312; 88342; A4216; J2405

== ENCOUNTER → 2024-04-19 | Outpatient (CLI) | payer MEDICARE, SELFPAY ==
[2024-04-19 12:43] LABS: Absolute Lymphocyte Count 1.95 X10^3/uL (0.83-4.51); Basophil# 0.07 X10^3/uL; Eosinophil# 0.07 X10^3/uL; Hematocrit 40.9 % (37-47); Hemoglobin 13.5 g/dL (12.0-15.0); Lymphocyte # 1.95 X10^3/ul (0.83-4.51); Lymphocyte % 28.6 % (19-41); Mean Corpuscular Hgb 30.4 pg (27.0-32.0); Mean Corpuscular Volume 92.1 fL (81-99); Mean Platelet Vol. 10.9 fl (6.2-12.0); Monocyte# 0.64 X10^3/uL; Monocyte% 9.4 % (0-10); NRBC Flagged by Analyzer 0 % (0-5); Neutrophil # 4.04 X10^3/uL (2.7-7.7); Neutrophil % 59.3 % (47-70); Platelet Count 243 K/mm3 (150-450); RBC Distribution Width CV 13.2 % (11.6-14.6); RBC Distribution Width SD 44.9 fl (35.1-43.9); Red Blood Count 4.44 M/mm3 (4.2-5.4); White Blood Count 6.8 K/mm3 (4.4-11.0)
[2024-04-19 13:09] LABS: AST(SGOT) 15 U/L (15-37); Alanine Aminotransfer ALT/SGPT 21 U/L (13-56); Albumin, Serum 3.5 g/dL (3.2-5.0); Alkaline Phosphatase 89 U/L (45-117); Anion Gap 8 (5-15); BUN 21 mg/dL (7-18); BUN/Creat Ratio 21.1 RATIO (10-20); Calcium,Total 9.8 mg/dL (8.5-10.1); Chloride 102 mmol/L (98-107); EST Glomerular Filtration Rate 57 mL/min (>60); Est Glom Filt Rate - Afr Amer 69 mL/min (>60); Globulin 3.6 g/dL (2.2-4.2); Glucose 103 mg/dL (74-106); Potassium 4.3 mmol/L (3.5-5.1); Protein, Total 7.1 g/dL (6.4-8.2); Sodium Level 138 mmol/L (136-145)
[2024-04-19 13:58] LABS: Hemoglobin A1c 5.9 % (3.8-5.6)
== END | disposition home or self-care (01) ==
LOC: BIMLAB 10:50
PROVIDERS: PCP Internal Medicine; Referring Provider Internal Medicine; Visit Provider Internal Medicine
DX: I10 Essential (primary) hypertension (principal); R73.03 Prediabetes
CPT/HCPCS: 36415; 80053; 83036; 85025

== ENCOUNTER → 2024-06-02 | Outpatient (CLI) | payer MEDICARE, SELFPAY ==
--- NOTE | 2024-06-02 08:07 | RAD_ITS ---
EXAM: XR Abdomen, 1 View CLINICAL INDICATION: TECHNIQUE: Frontal supine view of the abdomen/pelvis. COMPARISON: No relevant prior studies available. FINDINGS: GASTROINTESTINAL TRACT: Fecal retention in the colon consistent with constipation. No dilation. BONES/JOINTS: Unremarkable. No acute fracture. RAD/Abdomen Single View IMPRESSION: Fecal retention in the colon consistent with constipation. Reading Location: [facility]
[2024-06-02 08:49] LABS: Erythrocyte Sedimentation Rate 18 mm/hr (0-30)
[2024-06-02 08:51] LABS: Absolute Lymphocyte Count 2.37 X10^3/uL (0.83-4.51); Absolute Neutrophil Count 3.4 X10^3/uL (2.0-7.7); Basophil# 0.06 X10^3/uL; Basophil% 0.9 % (0-1); Eosinophil# 0.13 X10^3/uL; Hematocrit 40.4 % (37-47); Hemoglobin 13.1 g/dL (12.0-15.0); Lymphocyte # 2.37 X10^3/ul (0.83-4.51); Lymphocyte % 36.1 % (19-41); Mean Corp Hgb Conc 32.4 g/dL (32-36); Mean Corpuscular Hgb 29.2 pg (27.0-32.0); Mean Corpuscular Volume 90.2 fL (81-99); Mean Platelet Vol. 10.8 fl (6.2-12.0); Monocyte# 0.54 X10^3/uL; Monocyte% 8.2 % (0-10); NRBC Flagged by Analyzer 0 % (0-5); Neutrophil # 3.41 X10^3/uL (2.7-7.7); Platelet Count 232 K/mm3 (150-450); RBC Distribution Width CV 12.9 % (11.6-14.6); RBC Distribution Width SD 42.5 fl (35.1-43.9); Red Blood Count 4.48 M/mm3 (4.2-5.4); White Blood Count 6.6 K/mm3 (4.4-11.0)
[2024-06-02 11:48] LABS: ALB/GLOB Ratio 0.9 RATIO (0.9-2.4); AST(SGOT) 17 U/L (15-37); Alanine Aminotransfer ALT/SGPT 20 U/L (13-56); Albumin, Serum 3.3 g/dL (3.2-5.0); Alkaline Phosphatase 89 U/L (45-117); Anion Gap 6 (5-15); BUN 24 mg/dL (7-18); BUN/Creat Ratio 25.3 RATIO (10-20); CRP < 2.90 mg/L (0.0-3.0); Calcium,Total 9.5 mg/dL (8.5-10.1); Chloride 103 mmol/L (98-107); Creatinine, Serum 0.95 mg/dL (0.55-1.02); EST Glomerular Filtration Rate 61 mL/min (>60); Est Glom Filt Rate - Afr Amer 73 mL/min (>60); Globulin 3.7 g/dL (2.2-4.2); Glucose 129 mg/dL (74-106); Potassium 3.7 mmol/L (3.5-5.1); Sodium Level 139 mmol/L (136-145)
== END | disposition home or self-care (01) ==
LOC: LAB 07:58
PROVIDERS: Student in an Organized Health Care Education/Training Program; PCP Internal Medicine; Referring Provider Internal Medicine Gastroenterology; Visit Provider Internal Medicine Gastroenterology
DX: R19.5 Other fecal abnormalities (principal); R10.9 Unspecified abdominal pain
CPT/HCPCS: 36415; 74018; 80053; 85025; 85652; 86140

== ENCOUNTER → 2024-06-03 | Outpatient (CLI) | payer MEDICARE, SELFPAY | END | disposition home or self-care (01) | LOC: LABSPEC 10:42 | PROVIDERS: PCP Internal Medicine; Referring Provider Student in an Organized Health Care Education/Training Program; Visit Provider Student in an Organized Health Care Education/Training Program | DX: R19.5 Other fecal abnormalities (principal) | CPT/HCPCS: 82274 ==

== ENCOUNTER → 2024-06-17 | Outpatient (CLI) | payer MEDICARE, SELFPAY ==
--- NOTE | 2024-06-17 07:48 | US_ITS ---
PROCEDURE: ABDOMEN LIMITED REASON FOR EXAM: Right upper quadrant pain. COMPARISON: Comparison is made with prior study dated February 24, 2024. FINDINGS: Liver: Diffusely echogenic suggesting fatty infiltration.. The liver measures 17 cm. Gallbladder: No stones, sludge, wall thickening or tenderness. Common bile duct: Normal measuring it measures 3 mm.. Pancreas: Visualized portions are sonographically unremarkable. Visualized portions of the right kidney are unremarkable. No right upper quadrant ascites. US/Abdomen Limited IMPRESSION: Mild hepatomegaly and fatty infiltration of the liver. Reading Location: [id number]
== END | disposition home or self-care (01) ==
LOC: US 07:47
PROVIDERS: PCP Internal Medicine; Referring Provider Student in an Organized Health Care Education/Training Program; Visit Provider Student in an Organized Health Care Education/Training Program
DX: R10.11 Right upper quadrant pain (principal)
CPT/HCPCS: 76705

== ENCOUNTER → 2024-10-27 | Outpatient (CLI) | payer MEDICARE, SELFPAY ==
[2024-10-27 12:45] LABS: Hematocrit 41.9 % (37-47); Hemoglobin 13.7 g/dL (12.0-15.0); Immature Granulocytes Count 0.020 X10^3/uL (0.0-0.0); Mean Corp Hgb Conc 32.7 g/dL (32-36); Mean Corpuscular Volume 90.9 fL (81-99); Mean Platelet Vol. 11.2 fl (6.2-12.0); NRBC Flagged by Analyzer 0 % (0-5); Platelet Count 233 K/mm3 (150-450); RBC Distribution Width CV 13.6 % (11.6-14.6); RBC Distribution Width SD 45.1 fl (35.1-43.9); Red Blood Count 4.61 M/mm3 (4.2-5.4); White Blood Count 7.2 K/mm3 (4.4-11.0)
[2024-10-27 13:47] LABS: AST(SGOT) 25 U/L (<=31); Alanine Aminotransfer ALT/SGPT 19 U/L (<=34); Albumin, Serum 4.3 g/dL (3.4-4.8); Alkaline Phosphatase 88 U/L (35-104); Anion Gap 13 (5-15); BUN 20 mg/dL (4-19); BUN/Creat Ratio 17.3 RATIO (10-20); Calcium,Total 10.1 mg/dL (7.6-11.0); Carbon Dioxide 25.6 mmol/L (21.0-32.0); Chloride 101 mmol/L (98-108); Globulin 2.9 g/dL (2.2-4.2); Glucose 103 mg/dL (70-99); Potassium 4.8 mmol/L (3.3-5.1); Vitamin D,25 Hydroxy 53.2 ng/mL (30-100)
== END | disposition home or self-care (01) ==
LOC: BIMLAB 10:10
PROVIDERS: PCP Internal Medicine; Referring Provider Internal Medicine; Visit Provider Internal Medicine
DX: I10 Essential (primary) hypertension (principal); M85.80 Other specified disorders of bone density and structure, unspecified site
CPT/HCPCS: 36415; 80053; 82306; 84439; 84443; 85025

== ENCOUNTER → 2024-11-01 | Outpatient (CLI) | payer MEDICARE, SELFPAY ==
--- OUTSIDE RECORDS SUMMARY | 2024-11-01 07:03 | XMS RPT_ITS | CCD ---
Author Organization [facility] Care Team Providers Care Civil Engineer Land [employer] Name Role Phone Brennen Hopper MD Unavailable KAMERON BERNARDO (CALL WORKER PERSON) Unavailable Unavailable Dr. Eboni Katz Primary Care Provider [phone] Dr. Eboni Katz Referring Provider [phone] BHANU Hunt Attending Provider Unavailab Dr. Eboni Treviño Attending Provider [phone] Dr. Eva Allen Attending Provider [phone] Dr. Andre Machado Attending Provider [phone] Dr. Eboni Katz Primary Care Provider [phone] Veronica Harris Attending Provider Unavailable Dr. Eboni Katz Attending Provider [phone] Dr. Eboni Katz Referring Provider [phone] Dr. Andre Machado Attending Provider Dr. Andre Machado Other Provider [phone] Dr. Eboni Katz Primary Care Provider [phone] Dr. Eboni Katz Primary Care Provider [phone] Dr. Eboni Katz Attending Provider [phone] Dr. Eboni Katz Referring Provider [phone] Dr. Andre Machado Attending Provider BHANU Weeks Attending Provider Dr. Andre Machado Referring Provider [phone] Dr. Andre Machado Other Provider Gianna OLEARY, Dr. Lyn Primary Care Provider Gianna OLEARY, Dr. Lyn Attending Provider [phone] Gianna OLEARY, Dr. Lyn Referring Provider [phone] Ruby Abreu Attending Provider Oleghe, Efewongbe Attending Unavailable Oleghe, Efewongbe Primary Care Unavailable Oleghe, Efewongbe Referring Unavailable Friend, Moustapha Attending Unavailable Friend, Moustapha Consulting Unavailable Oleghe, Efewongbe Primary Care Unavailable Oleghe, Efewongbe Referring Unavailable Oleghe, Efewongbe Referring Unavailable Oleghe, Efewongbe Primary Care Unavailable Konstantin Saha Attending Unavailable Oleghe, Efewongbe Referring Unavailable Oleghe, Efewongbe Primary Care Unavailable Oleghe, Efewongbe Attending Unavailable Oleghe, Efewongbe Primary Care Unavailable Oleghe, Efewongbe Referring Unavailable Oleghe, Efewongbe Attending Unavailable Ruby Parekh Referring Unavailable Ruby Parekh Attending Unavailable Oleghe, Efewongbe Primary Care Unavailable Alex Hendricks Attending Unavailable Oleghe, Efewongbe Primary Care Unavailable Ruby Parekh Referring Unavailable Ruby Parekh Attending Unavailable Oleghe, Efewongbe Primary Care Unavailable Oleghe, Efewongbe Referring Unavailable Oleghe, Efewongbe Primary Care Unavailable Oleghe, Efewongbe Attending Unavailable Oleghe, Efewongbe Primary Care Unavailable Oleghe, Efewongbe Referring Unavailable Oleghe, Efewongbe Attending Unavailable Friend, Moustapha Referring Unavailable Friend, Moustapha Attending Unavailable Oleghe, Efewongbe Primary Care Unavailable Ruby Parekh Attending Unavailable Ruby Parekh Referring Unavailable Oleghe, Efewongbe Primary Care Unavailable Oleghe, Efewongbe Primary Care Unavailable Oleghe, Efewongbe Referring Unavailable Oleghe, Efewongbe Attending Unavailable Oleghe, Efewongbe Primary Care Unavailable Oleghe, Efewongbe Referring Unavailable Oleghe, Efewongbe Attending Unavailable Jaden, Moustapha Attending Unavailable Oleghe, Efewongbe Primary Care Unavailable Oleghe, Efewongbe Referring Unavailable Oleghe, Efewongbe Attending Unavailable Oleghe, Efewongbe Primary Care Unavailable Oleghe, Efewongbe Referring Unavailable Oleghe, Efewongbe Primary Care Unavailable Oleghe, Efewongbe Referring Unavailable Oleghe, Efewongbe Attending Unavailable Oleghe, Efewongbe Primary Care Unavailable Isckarus, Mansour Referring Unavailable Isckarus, Mansour Attending Unavailable Oleghe, Efewongbe Attending Unavailable Oleghe, Efewongbe Referring Unavailable Oleghe, Efewongbe Primary Care Unavailable Oleghe, Efewongbe Referring Unavailable Ruby Parekh Attending Unavailable Oleghe, Efewongbe Primary Care Unavailable Oleghe, Efewongbe Referring Unavailable Oleghe, Efewongbe Primary Care Unavailable Oleghe, Efewongbe Attending Unavailable Oleghe, Efewongbe Primary Care Unavailable Oleghe, Efewongbe Referring Unavailable Isckarus, Mansour Attending Unavailable Ruby Parekh Attending Unavailable Oleghe, Efewongbe Primary Care Unavailable Oleghe, Efewongbe Referring Unavailable Oleghe, Efewongbe Referring Unavailable Ruby Parekh Attending Unavailable Oleghe, Efewongbe Primary Care Unavailable Oleghe, Efewongbe Primary Care Unavailable Oleghe, Efewongbe Referring Unavailable Oleghe, Efewongbe Attending Unavailable Allergies Allergy Classification Reported Allergen(s) Allergy Type Date of Onset Reaction(s) Facility (1 source) acetaminophen / HYDROcodone Drug Allergy 6 red-itchy [facility] Work Phone: (1 source) lisinopril Drug Allergy 6 cough [facility] Work Phone: (1 source) Acetaminophen / HYDROcodone; Translations: [HYDROCODONE-ACET AMINOPHEN] Drug Allergy 5 [facility] Repository (13 sources) Lisinopril; Translations: [LISINOPRIL] Drug Allergy 5 [facility], [facility] Repository (1 source) OTHER; Translations: [OTHER] Propensity to adverse reactions (disorder) 6 [facility] Other [place] Repository (12 sources) HYDROcodone; Translations: [hydrocodone bitartrate] Drug Allergy Itching [facility] Medications Current Medications Medication Drug Class(es) Dates Sig (Normalized) Sig (Original) acetaminophen 325 mg oral tablet (16 sources) Start: 05-21-2023 End: 10-27-2024 take 2 tablets by mouth every four hours as needed for pain Acetaminophen 325 mg tablet Active 650 mg PO EVERY 4 HOURS NEEDED as needed for Pain Or Fever October 27, 2024 9:37am Start: 05-21-2023 take 650 mg by mouth every four hours as needed Acetaminophen Active 650 MG PO EVERY 4 HOURS NEEDED 0 May 21, 2023 12:00am Start: 10-26-2019 End: 09-18-2021 take 2 tablets by mouth every eight hours Acetaminophen 500 MG tablet Discontinued 1000 mg PO EVERY 8 HOURS 90 0 October 26, 2019 12:00am September 18, 2021 7:57am Start: 10-26-2019 End: 09-18-2021 take 1000 mg by mouth every eight hours Acetaminophen Discontinued 1000 MG PO EVERY 8 HOURS 90 October 25, 2019 11:00pm September 18, 2021 6:57am aspirin 81 mg oral tablet (20 sources) Platelet Aggregation Inhibitor, Nonsteroidal Anti-inflammatory Drug Start: 10-27-2024 take 1 tablet by mouth once daily Aspirin 81 mg tablet Active 81 mg PO daily October 27, 2024 12:00am Start: 09-18-2021 End: 03-24-2024 take 1 capsule by mouth once daily Aspirin 81 mg capsule Discontinued 81 mg PO DAILY September 18, 2021 12:00am March 24, 2024 5:07pm Start: 10-26-2019 End: 01-05-2021 take 1 tablet by mouth twice daily Aspirin 325 MG tablet Discontinued 325 mg PO TWICE A DAY 60 0 October 26, 2019 12:00am January 05, 2021 8:38am Start: 03-31-2013 End: 10-26-2019 take 1 tablet by mouth once daily Aspirin 81 MG tablet,chewable Discontinued 81 mg PO DAILY@0800 March 31, 2013 1:00am October 26, 2019 8:08am biotin 2.5 mg oral capsule (11 sources) Start: 07-15-2017 take 1 capsule by mouth once Biotin 2,500 mcg capsule Active 2500 ug PO ONCE July 15, 2017 12:00am Ipratropium (8 sources) Anticholinergic Start: 09-03-2021 take 1 spray(s) nasal route twice daily Ipratropium [place] Active 2 SPRAY INTRANASAL TWICE A DAY September 03, 2021 9:06am administer into each nostril Start: 09-03-2021 End: 09-25-2021 take 1 spray(s) nasal route twice daily Ipratropium [place] Discontinued 2 SPRAY INTRANASAL TWICE A DAY September 02, 2021 11:00pm September 25, 2021 11:45am administer into each nostril Start: 09-03-2021 End: 09-25-2021 take 1 spray(s) nasal route twice daily Ipratropium [place] Discontinued 2 SPRAY INTRANASAL TWICE A DAY September 03, 2021 12:00am September 25, 2021 12:45pm administer into each nostril losartan potassium 100 mg oral tablet (20 sources) Angiotensin 2 Receptor Medardo Start: 11-19-2023 End: 09-06-2024 take 1 tablet by mouth once daily Losartan 100 mg tablet Active 100 mg PO DAILY 90 90 September 06, 2024 1:03pm Start: 05-07-2021 End: 11-19-2023 take 1 tablet by mouth once daily Losartan 50 mg tablet Discontinued 50 mg PO DAILY 90 90 August 22, 2023 5:18pm November 19, 2023 10:32am Start: 07-04-2020 End: 05-07-2021 take 2 tablets by mouth once daily Losartan 25 mg tablet Discontinued 50 mg PO DAILY July 04, 2020 8:20am May 07, 2021 10:35am Start: 07-04-2020 End: 05-07-2021 take 50 mg by mouth once daily Losartan Discontinued 5 0 MG PO DAILY July 04, 2020 7:20am May 07, 2021 9:35am Start: 04-05-2020 End: 07-04-2020 take 1 tablet by mouth once daily Losartan 25 mg tablet Discontinued 25 mg PO DAILY 90 3 April 05, 2020 11:03am July 04, 2020 8:20am Start: 09-09-2019 End: 04-05-2020 take 1 tablet by mouth once daily Losartan 50 mg tablet Discontinued 50 mg PO DAILY 30 March 27, 2020 5:19pm April 05, 2020 11:07am Start: 03-16-2019 End: 09-09-2019 take 1 tablet by mouth once daily Losartan 100 mg tablet Discontinued 100 mg PO DAILY 90 3 March 16, 2019 10:27am September 09, 2019 8:22am Start: 11-06-2018 End: 03-16-2019 Losartan 50 mg tablet Discon tinued 75 mg PO DAILY 90 November 06, 2018 9:19am March 16, 2019 10:29am Start: 11-06-2018 End: 03-16-2019 take 75 mg by mouth once daily Losartan Discontinued 7 5 MG PO DAILY November 06, 2018 8:19am March 16, 2019 9:29am Start: 09-02-2018 End: 11-06-2018 take 1 tablet by mouth once daily Losartan 50 mg tablet Discontinued 50 mg PO DAILY September 02, 2018 12:00am November 06, 2018 9:23am 24 hr metFORMIN hydrochloride 500 mg extended release oral tablet (12 sources) Biguanide Start: 07-27-2024 End: 10-04-2024 take 1 tablet by mouth twice daily Metformin 500 mg tablet extended release 24 hr Active 500 mg PO TWICE A DAY 90 October 04, 2024 7:55am Start: 04-19-2024 End: 07-27-2024 take 1 tablet by mouth once daily in the evening Metformin 500 mg tablet extended release 24 hr Discontinued 500 mg PO EVERY EVENING 90 June 16, 2024 8:00pm July 26, 2024 9:30am Multivitamin With Iron (9 sources) Start: 03-31-2013 take 1 tablet by mouth once daily Multivitamin With Iron Active 1 TABLET PO DAILY March 31, 2013 11:02pm Start: 03-31-2013 take 1 tablet by nannette th once daily Multivitamin With Iron Active 1 TABLET PO DAILY March 31, 2013 12:00am Start: 03-31-2013 take 1 tablet by nannette th once daily Multivitamin With Iron Active 1 TABLET PO DAILY March 31, 2013 1:00am Multivitamin With Iron 1 EACH tablet (2 sources) Start: 03-31-2013 take 1 tablet by mouth once daily Multivitamin With Iron 1 EACH tablet Active 1 {tbl} PO DAILY March 31, 2013 1:00am 24 hr oxybutynin chloride 10 mg extended release oral tablet (20 sources) Cholinergic Muscarinic Antagonist Start: 09-06-2024 take 1 tablet by mouth once daily Oxybutynin Chloride 10 mg tablet extended release 24hr Active 10 mg PO daily 90 3 September 06, 2024 12:00am Start: 07-26-2024 End: 09-06-2024 take 1 tablet by mouth once daily Oxybutynin Chloride 5 mg tablet Discontinued 5 mg PO daily July 26, 2024 12:00am September 06, 2024 1:03pm Start: 11-06-2018 End: 03-24-2024 take 1 tablet by mouth once daily Oxybutynin Chloride 10 mg tablet extended release 24hr Discontinued 10 mg PO DAILY 90 October 15, 2023 10:31am March 24, 2024 5:08pm Start: 07-15-2017 End: 11-06-2018 take 1 tablet by mouth once daily Oxybutynin Chloride (Ditropan Xl) 5 mg tablet extended release 24hr Discontinued 10 mg PO daily September 02, 2018 10:39am November 06, 2018 8:52am sucralfate 1000 mg oral tablet (13 sources) Aluminum Complex Start: 10-27-2024 take 1 tablet by mouth at bedtime Sucralfate (Carafate) 1 gram tablet Active 1 g PO before meals and at bedtime 56 14 0 October 27, 2024 12:00am November 09, 2024 12:00am Start: 06-02-2024 End: 06-09-2024 take 1 tablet by mouth three times daily Sucralfate (Carafate) 1 gram tablet Discontinued 1 g PO THREE TIMES A DAY 21 7 0 June 02, 2024 1:00am June 08, 2024 1:00am June 09, 2024 1:21am Start: 02-19-2024 End: 03-04-2024 take 1 tablet by mouth at bedtime Sucralfate (Carafate) 1 gram tablet Discontinued 1 g PO before meals and at bedtime 56 14 0 February 19, 2024 12:00am March 03, 2024 1:00am March 04, 2024 1:09am Start: 04-08-2022 End: 04-22-2022 take 1 tablet by mouth at bedtime Sucralfate 1 gram tablet Discontinued 1 g PO before meals and at bedtime 56 14 0 April 08, 2022 1:00am April 21, 2022 1:00am April 22, 2022 1:04am Completed/Discontinued Medications Medication Drug Class(es) Dates Sig (Normalized) Sig (Original) acetaminophen 325 mg / oxyCODONE hydrochloride 5 mg oral tablet (20 sources) Opioid Agonist Start: 12-19-2016 End: 07-15-2017 Oxycodone-Acetamino phen 1 TABLET tablet Discontinued 1 - 2 {tbl} PO 4 TIMES DAILY NEEDED as needed for Pain 50 December 19, 2016 11:44am July 15, 2017 9:15am Start: 12-19-2016 End: 07-15-2017 take 1 tablet by mouth four times daily as needed Oxycodone-Acetaminophen Discontinued 1 - 2 TABLET PO 4 TIMES DAILY NEEDED 50 December 19, 2016 10:44am July 15, 2017 8:15am Start: 05-22-2016 End: 06-26-2016 take 1 tablet by mouth four times daily as needed for pain PERCOCET 5-325 MG TABS One tablet by nannette th four times daily as needed for pain OXYCODONE-ACETAMINOPHEN [id number] Brennen Hopper MD Start: 04-05-2016 End: 04-05-2016 Oxycodone-Acetaminophen 1 TA BLET tablet Discontinued 1 - 2 {tbl} PO 4 TIMES DAILY NEEDED as needed for Pain 40 April 05, 2016 5:55pm April 05, 2016 6:08pm Start: 04-05-2016 End: 04-05-2016 take 1 tablet by mouth four times daily as needed Oxycodone-Acetaminophen Discontinued 1 - 2 TABLET PO 4 TIMES DAILY NEEDED 40 April 05, 2016 4:55pm April 05, 2016 5:08pm alcaftadine 2.5 mg/ml ophthalmic solution (9 sources) Start: 09-18-2021 End: 12-05-2021 take 0.25 drop(s) into the eye(s) twice daily Alcaftadine (Lastacaft) 0.25 % drops Discontinued 1 NMA OPHTHALMIC TWICE A DAY September 18, 2021 12:00am December 05, 2021 9:42am Start: 09-18-2021 End: 12-05-2021 take 0.25 drop(s) into the eye(s) twice daily Alcaftadine (Lastacaft) 0.25 % drops Discontinued 1 DRP OPHTHALMIC TWICE A DAY September 17, 2021 11:00pm December 05, 2021 8:42am amLODIPine 5 mg oral tablet (20 sources) Dihydropyridine Calcium Channel Medardo Start: 06-21-2019 End: 09-20-2024 take 7.5 mg by mouth once daily Amlodipine 5 mg tablet Discontinued 7.5 mg PO DAILY 135 90 August 22, 2023 5:18pm September 20, 2024 8:17am Start: 06-21-2019 End: 06-13-2022 take 7.5 mg by mouth once daily Amlodipine Discontinue d 7.5 MG PO DAILY 135 90 May 07, 2021 9:34am June 13, 2022 10:07am Start: 05-24-2019 End: 06-21-2019 take 1 tablet by mouth once daily Amlodipine 5 mg tablet Discontinued 5 mg PO DAILY 30 May 24, 2019 1:00am June 21, 2019 9:41am amoxicillin 875 mg / clavulanate 125 mg oral tablet (15 sources) Penicillin-class Antibacterial Start: 05-02-2023 End: 05-12-2023 Amoxicillin-Pot Clavulanate 875-125 mg tablet Discontinued 1 {tbl} PO Q12H 20 10 0 May 02, 2023 1:00am May 11, 2023 1:00am May 12, 2023 1:04am Acute sinusitis, unspecified Start: 05-02-2023 End: 05-12-2023 take 1 tablet by mouth every twelve hours Amoxicillin-Pot Clavulanate Discontinued 1 TABLET PO Q12H 20 May 02, 2023 12:00am May 12, 2023 12:04am Start: 04-05-2016 End: 04-05-2016 Amoxicillin-Pot Clavulanate (Augmentin 875-125 Tablet) 1 EACH tablet Discontinued 1 NMA PO TWICE A DAY 28 April 05, 2016 1:00am April 05, 2016 6:07pm Blood-Glucose Meter (Contour Next Ez Meter) kit (2 sources) Start: 07-26-2024 End: 10-27-2024 Blood-Glucose Meter (Contour Next Ez Meter) kit Discontinued 0 .Route 1 3 July 26, 2024 12:00am October 27, 2024 9:38am As directed cefadroxil 500 mg oral capsule (11 sources) Cephalosporin Antibacterial Start: 12-19-2016 End: 07-15-2017 take 1 capsule by mouth twice daily Cefadroxil 500 MG capsule Discontinued 500 mg PO TWICE A DAY 10 0 December 19, 2016 12:00am July 15, 2017 9:15am celecoxib 200 mg oral capsule (20 sources) Nonsteroidal Anti-inflammatory Drug Start: 10-01-2018 End: 09-16-2023 take 1 capsule by mouth once daily as needed for pain Celecoxib (Celebrex) 200 mg capsule Discontinued 200 mg PO DAILY as needed for pain 90 May 21, 2021 9:10am September 16, 2023 11:07am Start: 03-31-2013 End: 04-05-2016 take 1 capsule by mouth once daily Celecoxib 200 MG capsule Discontinued 200 mg PO DAILY March 31, 2013 1:00am April 05, 2016 6:03pm cholecalciferol 0.05 mg oral capsule (20 sources) Vitamin D Start: 10-01-2018 End: 07-04-2020 Cholecalciferol (Vitamin D3) 2,000 unit capsule Discontinued 1000 U PO DAILY October 01, 2018 12:00am July 04, 2020 8:20am Start: 10-01-2018 End: 07-04-2020 take 1000 [IU] by mouth once daily Cholecalciferol (Vitamin D3) Discontinued 1000 UNIT PO DAILY September 30, 2018 11:00pm July 04, 2020 7:20am Start: 07-15-2017 End: 10-01-2018 take 1 capsule by mouth once Cholecalciferol (Vitamin D3) 1,000 unit capsule Discontinued 1000 U PO ONCE July 15, 2017 12:00am October 01, 2018 6:01pm ciprofloxacin 500 mg oral tablet (11 sources) Quinolone Antimicrobial Start: 05-07-2019 End: 05-24-2019 take 1 tablet by mouth twice daily Ciprofloxacin Hcl 500 mg tablet Discontinued 500 mg PO TWICE A DAY 10 0 May 07, 2019 1:00am May 24, 2019 9:22am daily defense (11 sources) Start: 11-06-2018 End: 01-05-2021 take 1 capsule by mouth once daily daily defense Discontinued 1 CAP PO DAILY November 06, 2018 8:53am January 05, 2021 8:38am Start: 11-06-2018 End: 01-05-2021 daily defense Discontinued 1 NMA PO DAILY 0 November 06, 2018 12:00am January 05, 2021 8:38am Start: 11-06-2018 End: 01-05-2021 take 1 capsule by mouth once daily daily defense Discontinued 1 CAP PO DAILY November 05, 2018 11:00pm January 05, 2021 7:38am Start: 11-06-2018 End: 01-05-2021 take 1 capsule by mouth once daily daily defense Discontinued 1 CAP PO DAILY November 06, 2018 12:00am January 05, 2021 8:38am dexlansoprazole 30 mg delayed release oral capsule (20 sources) Proton Pump Inhibitor Start: 05-28-2019 End: 04-05-2020 take 1 capsule by mouth once daily Dexlansoprazole (Dexilant) 30 mg capsule,biphase delayed releas Discontinued 30 mg PO DAILY 90 3 June 21, 2019 1:53pm April 05, 2020 11:02am diazePAM 2 mg oral tablet (11 sources) Benzodiazepine Start: 03-31-2013 End: 10-01-2018 take 1 tablet by mouth three times daily as needed for anxiety Diazepam 2 MG tablet Discontinued 2 mg PO 3 TIMES DAILY NEEDED as needed for Anxiety March 31, 2013 1:00am October 01, 2018 6:03pm Fluad Quad (65yr up)(PF) 60 mcg (15 mcg x 4)/0.5mL IM syringe (flu vac (4 sources) Start: 01-05-2021 End: 01-05-2021 Fluad Quad (65yr up)(PF) 60 mcg (15 mcg x 4)/0.5mL IM syringe (flu vac Discontinued 60 MCG IM ONCE 0.5 January 05, 2021 8:20am January 05, 2021 9:29am FLUoxetine 20 mg oral tablet (20 sources) Serotonin Reuptake Inhibitor Start: 03-16-2019 End: 09-18-2021 take 1 tablet by mouth once daily Fluoxetine 20 mg tablet Discontinued 20 mg PO DAILY 90 3 October 06, 2020 8:20am September 18, 2021 7:57am Start: 02-16-2019 End: 03-16-2019 take 1 tablet by mouth once daily Fluoxetine 10 mg tablet Discontinued 10 mg PO DAILY 60 1 February 16, 2019 12:00am March 16, 2019 10:29am fluticasone propionate 0.05 mg/actuat metered dose nasal spray (11 sources) Corticosteroid Start: 03-31-2013 End: 07-15-2017 Fluticasone Propionate 1 SPRAY spray,suspension Discontinued 50 ug NASAL DAILY NEEDED as needed for Allergies March 31, 2013 1:00am July 15, 2017 9:15am gabapentin 100 mg oral capsule (4 sources) Anti-epileptic Agent Start: 05-22-2016 End: 06-26-2016 take 1 tablet by mouth three times daily NEURONTIN 100 MG CAPS One tablet by mouth three times daily GABAPENTIN [id number] Brennen Hopper MD Start: 04-24-2016 End: 06-26-2016 take 1 tablet by mouth twice daily NEURONTIN 100 MG CAPS One tablet by mouth twice daily GABAPENTIN [id number] Ameena Pereira LPN Gauze Bandage (9 sources) Start: 04-05-2016 End: 04-05-2016 Gauze Bandage Discontinued 1 EACH TP DAILY April 05, 2016 5:55pm April 05, 2016 6:07pm size of wound dorsum right hand at MP joint index finger - 4 x 3 x 0.6 cm. ICD-10 codes - W55.01xA and S61.401A Start: 04-05-2016 End: 04-05-2016 Gauze Bandage Discontinued 1 EACH TP DAILY April 05, 2016 12:00am April 05, 2016 5:07pm size of wound dorsum right hand at MP joint index finger - 4 x 3 x 0.6 cm. ICD-10 codes - W55.01xA and S61.401A Start: 04-05-2016 End: 04-05-2016 Gauze Bandage Discontinued 1 EACH TP DAILY April 05, 2016 1:00am April 05, 2016 6:07pm size of wound dorsum right hand at MP joint index finger - 4 x 3 x 0.6 cm. ICD-10 codes - W55.01xA and S61.401A Gauze Bandage (Rolled Gauze) 1 EACH Bandage (11 sources) Start: 04-05-2016 End: 04-05-2016 Gauze Bandage (Rolled Gauze) 1 EACH Bandage Discontinued 1 EACH TP DAILY April 05, 2016 5:55pm April 05, 2016 6:07pm size of wound dorsum right hand at MP joint index finger - 4 x 3 x 0.6 cm. ICD-10 codes - W55.01xA and S61.401A. Start: 04-05-2016 End: 04-05-2016 Gauze Bandage (Rolled Gauze) 1 EACH Bandage Discontinued 1 NMA TP DAILY 30 April 05, 2016 1:00am April 05, 2016 6:07pm size of wound dorsum right hand at MP joint index finger - 4 x 3 x 0.6 cm. ICD-10 codes - W55.01xA and S61.401A. Start: 04-05-2016 End: 04-05-2016 Gauze Bandage (Rolled Gauze) 1 EACH Bandage Discontinued 1 EACH TP DAILY April 05, 2016 12:00am April 05, 2016 5:07pm size of wound dorsum right hand at MP joint index finger - 4 x 3 x 0.6 cm. ICD-10 codes - W55.01xA and S61.401A. Start: 04-05-2016 End: 04-05-2016 Gauze Bandage (Rolled Gauze) 1 EACH Bandage Discontinued 1 EACH TP DAILY April 05, 2016 1:00am April 05, 2016 6:07pm size of wound dorsum right hand at MP joint index finger - 4 x 3 x 0.6 cm. ICD-10 codes - W55.01xA and S61.401A. Gauze Bandage 1 EACH Bandage (2 sources) Start: 04-05-2016 End: 04-05-2016 Gauze Bandage 1 EACH Bandage Discontinued 1 NMA TP DAILY 30 April 05, 2016 1:00am April 05, 2016 6:07pm size of wound dorsum right hand at MP joint index finger - 4 x 3 x 0.6 cm. ICD-10 codes - W55.01xA and S61.401A hydroCHLOROthiazide 25 mg oral tablet (20 sources) Thiazide Diuretic Start: 04-05-2020 End: 06-28-2024 Hydrochlorothiazide 25 mg tablet Discontinued 0 .ROUTE .COMPLEX 90 3 August 22, 2023 5:18pm June 28, 2024 10:41am TAKE 1 TABLET DAILY Start: 10-13-2019 End: 04-05-2020 take 2 tablets by mouth once daily Hydrochlorothiazide 25 MG tablet Discontinued 50 mg PO DAILY October 13, 2019 2:20pm April 05, 2020 11:19am Start: 10-13-2019 End: 04-05-2020 take 50 mg by mouth once daily Hydrochlorothiazide Discontinued 50 MG PO DAILY October 13, 2019 1:20pm April 05, 2020 10:19am Start: 11-06-2018 End: 10-13-2019 take 1 tablet by mouth once daily Hydrochlorothiazide 25 mg tablet Discontinued 25 mg PO DAILY 90 3 November 06, 2018 9:20am October 13, 2019 2:20pm Start: 04-03-2016 End: 11-06-2018 take 2 tablets by mouth once daily Hydrochlorothiazide 25 MG tablet Discontinued 50 mg PO DAILY April 03, 2016 1:00am November 06, 2018 8:53am Start: 04-03-2016 End: 11-06-2018 take 50 mg by mouth once daily Hydrochlorothiazide Discontinued 50 MG PO DAILY April 03, 2016 12:00am November 06, 2018 7:53am take 1 tablet by nannette th once daily HYDROCHLOROTHIAZIDE 50 MG TABS One tablet by mouth daily HYDROCHLOROTHIAZIDE [id number] Archana Barraza imiquimod 50 mg/ml topical cream (1 source) Start: 01-06-2017 ALDARA 5 % CRE A apply daily at night 5 days per week for 6 weeks IMIQUIMOD [id number] Brennen Hopper MD Ipratropium Converse 21 mcg (0.03 %) spray,non-aerosol (2 sources) Start: 09-03-2021 End: 09-25-2021 Ipratropium Converse 21 mcg (0.03 %) spray,non-aerosol Discontinued 2 NMA INTRANASAL TWICE A DAY as needed for allergy symptoms/ Sinus symptoms 30 3 September 03, 2021 12:00am September 25, 2021 12:45pm administer into each nostril lactobacillus acidophilus [id number] unt / pectin 100 mg oral tablet (20 sources) Start: 12-19-2016 End: 07-15-2017 take 1 tablet by mouth twice daily Acidophilus-Pectin, [place] 1 EACH tablet Discontinued 1 NMA PO TWICE A DAY 10 0 December 19, 2016 12:00am July 15, 2017 9:15am Start: 12-19-2016 End: 07-15-2017 Acidophilus-Pectin, [place] D iscontinued 1 EACH PO TWICE A DAY 10 December 18, 2016 11:00pm July 15, 2017 8:15am Start: 04-05-2016 End: 04-05-2016 take 1 tablet by mouth twice daily Acidophilus-Pectin, [place] 1 EACH tablet Discontinued 1 NMA PO TWICE A DAY 30 April 05, 2016 1:00am April 05, 2016 6:07pm Start: 04-05-2016 End: 04-05-2016 Acidophilus-Pectin, [place] D iscontinued 1 EACH PO TWICE A DAY 30 April 05, 2016 12:00am April 05, 2016 5:07pm Magnesium (11 sources) Start: 02-16-2019 End: 09-09-2019 take 250 mg by mouth once daily Magnesium Discontinued 250 MG PO DAILY February 16, 2019 8:08am September 09, 2019 8:22am Start: 02-16-2019 End: 09-09-2019 take 1 tablet by mouth once daily Magnesium 250 mg tablet Discontinued 250 mg PO DAILY February 16, 2019 12:00am September 09, 2019 8:22am Start: 02-16-2019 End: 09-09-2019 take 250 mg by mouth once daily Magnesium Discontinued 250 MG PO DAILY February 15, 2019 11:00pm September 09, 2019 7:22am Start: 02-16-2019 End: 09-09-2019 take 250 mg by mouth once daily Magnesium Discontinued 250 MG PO DAILY February 16, 2019 12:00am September 09, 2019 8:22am meclizine hydrochloride 25 mg chewable tablet (11 sources) Antiemetic Start: 03-31-2013 End: 10-01-2018 take 1 tablet by mouth three times daily as needed for dizziness Meclizine 25 MG tablet,chewable Discontinued 25 mg PO THREE TIMES A DAY as needed for Dizziness March 31, 2013 1:00am October 01, 2018 6:03pm nitrofurantoin, macrocrystals 25 mg / nitrofurantoin, monohydrate 75 mg oral capsule (11 sources) Nitrofuran Antibacterial Start: 03-04-2019 End: 03-11-2019 take 1 capsule by mouth twice daily at mealtime Nitrofurantoin Monohyd/M-Cryst (Macrobid) 100 mg capsule Discontinued 100 mg PO TWICE A DAY 14 7 0 March 04, 2019 1:00am March 10, 2019 1:00am March 11, 2019 1:07am must administer with a meal/food omeprazole 40 mg delayed release oral capsule (20 sources) Proton Pump Inhibitor Start: 04-05-2020 End: 04-08-2022 take 1 capsule by mouth once daily Omeprazole 40 mg capsule,delayed release(DR/EC) Discontinued 40 mg PO DAILY 90 3 May 22, 2021 10:47am April 08, 2022 10:37am Start: 03-31-2013 End: 01-21-2019 take 1 capsule by mouth once daily Omeprazole 20 MG capsule Discontinued 20 mg PO DAILY March 31, 2013 1:00am January 21, 2019 3:27pm oxyCODONE hydrochloride 5 mg oral tablet (14 sources) Opioid Agonist Start: 05-21-2023 End: 06-09-2023 take 5-10 mg by mouth every four hours as needed for pain Oxycodone 5 mg Tablet Discontinued 5 - 10 mg PO EVERY 4 HOURS NEEDED as needed for Pain Score 4-10/10 15 5 0 May 21, 2023 June 09, 2023 2:01pm Pain in left axilla Pain in left upper arm Start: 10-26-2019 End: 11-02-2019 take 5-10 mg by mouth every six hours as needed for pain Oxycodone 5 MG tablet Discontinued 5 - 10 mg PO EVERY 6 HOURS NEEDED as needed for Pain Score 4-10/10 56 7 0 October 26, 2019 November 01, 2019 12:00am November 02, 2019 12:02am Acute postoperative pain of left knee Other acute postprocedural pain pantoprazole 40 mg delayed release oral tablet (20 sources) Proton Pump Inhibitor Start: 10-27-2024 End: 10-27-2024 take 1 tablet by mouth once daily Pantoprazole 40 mg tablet,delayed release (DR/EC) Discontinued 40 mg PO daily October 27, 2024 9:37am October 27, 2024 10:03am Start: 02-19-2024 End: 10-27-2024 take 1 tablet by mouth twice daily Pantoprazole 40 mg tablet,delayed release (DR/EC) Active 40 mg PO TWICE A DAY 180 October 27, 2024 10:03am Start: 06-10-2023 End: 02-19-2024 take 1 tablet by mouth once daily Pantoprazole 40 mg tablet,delayed release (DR/EC) Discontinued 40 mg PO DAILY 90 January 26, 2024 1:01pm February 19, 2024 9:26am Start: 04-08-2022 End: 02-10-2023 Pantoprazole 40 mg tablet,de layed release (DR/EC) Discontinued 40 mg PO DAILY 120 May 20, 2022 11:04am February 10, 2023 8:03am BID for a month, then daily. Start: 05-24-2019 End: 05-28-2019 take 1 tablet by mouth once daily Pantoprazole 40 mg tablet,delayed release (DR/EC) Discontinued 40 mg PO DAILY 60 May 24, 2019 9:36am May 28, 2019 6:22pm Start: 01-21-2019 End: 05-24-2019 take 1 tablet by mouth twice daily Pantoprazole 40 mg tablet,delayed release (DR/EC) Discontinued 40 mg PO TWICE A DAY 60 January 21, 2019 12:00am May 24, 2019 9:38am potassium chloride 20 meq extended release oral tablet (20 sources) Start: 10-12-2020 End: 01-26-2024 take 1 tablet by mouth twice daily Potassium Chloride 20 mEq tablet extended release Discontinued 20 meq PO TWICE A DAY 180 August 22, 2023 12:59pm January 26, 2024 1:01pm Start: 10-06-2020 End: 10-12-2020 take 1 tablet by mouth once daily Potassium Chloride 20 mEq tablet extended release Discontinued 20 meq PO DAILY 90 October 06, 2020 12:00am October 12, 2020 7:19pm Start: 08-19-2019 End: 10-06-2020 take 2 capsules by mouth once daily Potassium Chloride 10 MEQ capsule, extended release Discontinued 20 meq PO DAILY October 13, 2019 2:20pm October 06, 2020 10:15am TAKE 2 CAPSULES (20 MEQ) DAILY Start: 08-19-2019 End: 10-06-2020 take 2 capsules by mouth once daily Potassium Chloride Discontinued 20 MEQ PO DAILY October 13, 2019 1:20pm October 06, 2020 9:15am TAKE 2 CAPSULES (20 MEQ) DAILY Start: 03-31-2013 End: 08-19-2019 take 2 tablets by mouth once daily Potassium Chloride 10 mEq tablet extended release Discontinued 20 meq PO DAILY 90 3 November 06, 2018 9:22am August 19, 2019 1:17pm Start: 03-31-2013 End: 08-19-2019 take 20 mEq by mouth once daily Potassium Chloride Dis continued 20 MEQ PO DAILY 90 November 06, 2018 8:22am August 19, 2019 12:17pm pravastatin sodium 40 mg oral tablet (11 sources) HMG-CoA Reductase Inhibitor Start: 03-31-2013 End: 09-02-2018 Pravastatin 40 MG tablet Discontinued 20 mg PO AT BEDTIME March 31, 2013 1:00am September 02, 2018 10:40am Start: 03-31-2013 End: 09-02-2018 take 20 mg by mouth at bedtime Pravastatin Discontinue d 20 MG PO AT BEDTIME March 31, 2013 12:00am September 02, 2018 9:40am predniSONE 20 mg oral tablet (4 sources) Start: 05-14-2023 End: 05-21-2023 take 2 tablets by mouth once daily Prednisone 20 mg tablet Discontinued 40 mg PO DAILY 10 May 14, 2023 1:00am May 21, 2023 8:37am Start: 05-14-2023 End: 05-21-2023 take 40 mg by mouth once daily Prednisone Discontinued 40 MG PO DAILY May 14, 2023 12:00am May 21, 2023 7:37am rOPINIRole 0.5 mg oral tablet (20 sources) Nonergot Dopamine Agonist Start: 03-31-2013 End: 06-28-2024 take 1 tablet by mouth three times daily Ropinirole 0.5 mg tablet Discontinued 0.5 mg PO THREE TIMES A DAY 360 August 22, 2023 5:18pm June 28, 2024 10:41am ROPINIROLE HCL 5 MG TABS 3 times daily ROPINIROLE HCL [id number] Archana Barraza Semaglutide (2 sources) Start: 07-26-2024 End: 10-27-2024 Semaglutide (Ozempic) 0.25 m g or 0.5 mg (2 mg/3 mL) pen injector Discontinued 0.25 mg SC EVERY WEEK 3 July 26, 2024 12:00am October 27, 2024 9:38am for 4 weeks Silver-Hydrocolloid Dressing (Aquacel-Ag W-Hydrofiber Dress) 1 EACH Bandage (11 sources) Start: 04-05-2016 End: 04-05-2016 Silver-Hydrocolloid Dressing (Aquacel-Ag W-Hydrofiber Dress) 1 EACH Bandage Discontinued 1 EACH TP DAILY April 05, 2016 5:55pm April 05, 2016 6:07pm size of wound dorsum right hand at MP joint index finger - 4 x 3 x 0.6 cm. ICD-10 codes - W55.01xA and S61.401A. Start: 04-05-2016 End: 04-05-2016 Silver-Hydrocolloid Dressing (Aquacel-Ag W-Hydrofiber Dress) 1 EACH Bandage Discontinued 1 NMA TP DAILY 30 April 05, 2016 1:00am April 05, 2016 6:07pm size of wound dorsum right hand at MP joint index finger - 4 x 3 x 0.6 cm. ICD-10 codes - W55.01xA and S61.401A. Start: 04-05-2016 End: 04-05-2016 Silver-Hydrocolloid Dressing (Aquacel-Ag W-Hydrofiber Dress) 1 EACH Bandage Discontinued 1 EACH TP DAILY April 05, 2016 12:00am April 05, 2016 5:07pm size of wound dorsum right hand at MP joint index finger - 4 x 3 x 0.6 cm. ICD-10 codes - W55.01xA and S61.401A. Start: 04-05-2016 End: 04-05-2016 Silver-Hydrocolloid Dressing (Aquacel-Ag W-Hydrofiber Dress) 1 EACH Bandage Discontinued 1 EACH TP DAILY April 05, 2016 1:00am April 05, 2016 6:07pm size of wound dorsum right hand at MP joint index finger - 4 x 3 x 0.6 cm. ICD-10 codes - W55.01xA and S61.401A. SOLIFENACIN SUCCINATE TABS (1 source) Cholinergic Muscarinic Antagonist VESICARE TABS 1 tab pm SOLIFENACIN SUCCINATE TABS [id number] Archana Barraza valsartan 160 mg oral tablet (12 sources) Angiotensin 2 Receptor Medardo Start: 3 End: 9 take 1 tablet by mouth once daily Valsartan 160 MG tablet Discontinued 160 mg PO DAILY March 31, 2013 1:00am September 02, 2018 10:40am Vibegron (2 sources) Start: 4 End: 5 take 1 tablet by mouth once daily Vibegron (Gemtesa) 75 mg tablet Discontinued 75 mg PO DAILY March 24, 2024 1:00am July 26, 2024 9:05am Vonoprazan (Voquezna) 10 mg tablet (4 sources) Start: 5 End: 5 take 1 tablet by mouth once daily Vonoprazan (Voquezna) 10 mg tablet Discontinued 10 mg PO daily 90 2 June 11, 2024 1:02pm July 26, 2024 9:05am Start: 06-11-2024 End: 06-11-2024 take 1 tablet by mouth once daily Vonoprazan (Voquezna) 10 mg tablet Discontinued 10 mg PO daily 90 2 June 11, 2024 1:00am June 11, 2024 1:02pm Problems Active Problems Problem Classification Problem Date Documented Da te Episodic/Chronic Abdominal pain (8 sources) Left lower quadrant pain; Translations: [Left lower quadrant pain] Onset: 4 11-19-2023 Episodic Anxiety disorders (13 sources) Mixed anxiety and depressive disorder; Translations: [Other specified anxiety disorders] 02-16-2019 Chronic Cataract (11 sources) Bilateral cataracts; Translations: [Unspecified cataract] 10-25-2019 Chronic Conditions associated with dizziness or vertigo (20 sources) Vertigo; Translations: [Dizziness and giddiness] 10-01-2018 Episodic Diabetes mellitus without complication (20 sources) Hyperglycemia; Translations: [Hyperglycemia, unspecified] Onset: 5 03-22-2022 Episodic Disorders of lipid metabolism (20 sources) Hypercholesterolemia; Translations: [Pure hypercholesterolemia, unspecified] Onset: 5 10-01-2018 Chronic E Codes: Natural/environment (11 sources) Cat bite - wound; Translations: [Bitten by cat, initial encounter] 04-02-2016 Episodic Comment on above: W55.01xAcat bite inf ection dorsum right hand at MP joint index finger with surrounding cellulitis extending onto index finger and onto distal dorsal forearm Esophageal disorders (9 sources) Gastroesophageal reflux disease; Translations: [Gastro-esophageal reflux disease without esophagitis] Onset: 4 04-08-2022 Chronic Essential hypertension (20 sources) Benign essential hypertension; Translations: [Essential (primary) hypertension] Onset: 5 Chronic External Injury - Natural / Environment (2 sources) Bitten by cat, subsequent encounter; Translations: [Bitten by cat, initial encounter] Onset: 6 05-08-2016 Immunizations and screening for infectious disease (11 sources) Needs influenza immunization; Translations: [Encounter for immunization] 01-05-2021 Episodic Lymphadenitis (14 sources) Lymphadenopathy; Translations: [Generalized enlarged lymph nodes] Episodic Comment on above: left axillary 3.5 x 2.1 cm, braider tender, 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 cbc ordered Non-Hodgkin`s lymphoma (4 sources) Malignant lymphoma - small lymphocytic; Translations: [Small cell B-cell lymphoma, unspecified site] Onset: 5 06-12-2023 Chronic Open wounds of extremities (20 sources) Open bite of right hand, subsequent encounter; Translations: [Unspecified open wound of right hand, subsequent encounter] Onset: 6 05-08-2016 Episodic Comment on above: S61.401Aopen surgica l cat bite wound dorsum right hand at MP joint index finger CAT BITE INFECTION D ORSUM RIGHT HAND AT MP JOINT INDEX FINGER S61.451Acat bite inf ection dorsum right hand at MP joint index finger with surrounding cellulitis extending onto index finger and onto distal dorsal forearm OPEN SURGICAL CAT BI TE WOUND DORSUM RIGHT HAND AT MP JOINT INDEX FINGER Osteoarthritis (20 sources) Degenerative joint disease involving multiple joints; Translations: [Polyosteoarthritis, unspecified] 07-15-2017 Chronic Other bone disease and musculoskeletal deformities (2 sources) Osteopenia; Translations: [Other specified disorders of bone density and structure, unspecified site] 10-27-2024 Episodic Other bone disease and musculoskeletal deformities (1 source) Other specified disorders of bone density and structure, unspecified site; Translations: [Other specified disorders of bone density and structure, unspecified site] Onset: 5 Episodic Other connective tissue disease (14 sources) Dupuytren's contracture ; Translations: [Palmar fascial fibromatosis [Dupuytren]] Onset: 7 05-17-2016 Episodic Other connective tissue disease (7 sources) Hand pain; Translations: [Pain in right hand] 04-08-2022 Episodic Other connective tissue disease (5 sources) Pain in axilla; Translations: [Pain in left upper arm] 03-11-2023 Episodic Other connective tissue disease (4 sources) Pain in left upper arm; Translations: [Pain in limb] 03-11-2023 Episodic Other diseases of kidney and ureters (2 sources) Renal mass; Translations: [Other specified disorders of kidney and ureter] 12-08-2023 Chronic Other ear and sense organ disorders (11 sources) Tinnitus; Translations: [Tinnitus, unspecified ear] 10-06-2020 Episodic Other gastrointestinal disorders (3 sources) Dark stools; Translations: [Other fecal abnormalities] 02-19-2024 Episodic Other gastrointestinal disorders (2 sources) Constipation; Translations: [Constipation, unspecified] 06-11-2024 Episodic Other gastrointestinal disorders (1 source) Other fecal abnormalities; Translations: [Other fecal abnormalities] Onset: 5 Episodic Other hereditary and degenerative nervous system conditions (20 sources) Restless legs; Translations: [Restless legs syndrome] 10-01-2018 Chronic Other hereditary and degenerative nervous system conditions (7 sources) Restless legs syndrome; Translations: [Restless legs syndrome (RLS)] 07-05-2022 Chronic Other lower respiratory disease (10 sources) Dyspnea; Translations: [Shortness of breath] 09-03-2021 Episodic Other lower respiratory disease (3 sources) Shortness of breath; Translations: [Shortness of breath] Episodic Other lower respiratory disease (3 sources) Dyspnea on exertion; Translations: [Other forms of dyspnea] 10-27-2024 Episodic Other lower respiratory disease (2 sources) Other forms of dyspnea; Translations: [Other forms of dyspnea] Onset: 5 Episodic Other nervous system disorders (11 sources) H/O: hearing problem; Translations: [Personal history of other diseases of the nervous system and sense organs] 10-25-2019 Episodic Other non-epithelial cancer of skin (20 sources) History of malignant neoplasm of skin; Translations: [Malignant tumor of external ear] Onset: 7 06-11-2016 Episodic Other non-traumatic joint disorders (1 source) Effusion, left ankle; Translations: [Effusion, left ankle] Onset: 8 Episodic Other nutritional; endocrine; and metabolic disorders (2 sources) Body mass index 30+ - obesity; Translations: [Obesity, unspecified] 08-13-2023 Chronic Other skin disorders (20 sources) Actinic keratosis; Translations: [Disorder of skin] Onset: 7 01-06-2017 Episodic Comment on above: actinic keratosis wi th moderate atypia left nasal tip ACTINIC KERATOSIS, H YPERTROPHIC TYPE, WITH MODERATE ATYPIA LEFT NASAL TIP Other upper respiratory infections (20 sources) Chronic sinusitis; Translations: [Chronic sinusitis, unspecified] Chronic Other upper respiratory infections (6 sources) Acute sinusitis; Translations: [Acute sinusitis, unspecified] 05-02-2023 Episodic Residual codes; unclassified (12 sources) Obstructive sleep apnea syndrome; Translations: [Obstructive sleep apnea (adult) (pediatric)] 12-11-2018 Chronic Residual codes; unclassified (10 sources) Bilateral lower limb edema; Translations: [Localized edema] 09-03-2021 Episodic Residual codes; unclassified (3 sources) Localized edema; Translations: [Edema] Episodic Residual codes; unclassified (7 sources) Past history of procedure; Translations: [Other specified postprocedural states] 12-05-2021 Episodic Skin and subcutaneous tissue infections (12 sources) Cellulitis of hand; Translations: [Cellulitis of right upper limb] Onset: 6 04-22-2016 Episodic Comment on above: L03.113cat bite infe ction dorsum right hand at MP joint index finger with surrounding cellulitis extending onto index finger and onto distal dorsal forearm Spondylosis; intervertebral disc disorders; other back problems (11 sources) Back problem; Translations: [Dorsopathy, unspecified] 10-25-2019 Episodic Unclassified (1 source) Aftercare ; Translations: [Encounter for other specified surgical aftercare] Onset: 6 04-22-2016 Past or Other Problems Problem Classification Problem Date Documented Da te Episodic/Chronic Gastrointestinal hemorrhage (6 sources) Gastrointestinal hemorrhage; Translations: [Gastrointestinal hemorrhage, unspecified] Onset: 4 02-23-2024 Episodic Neoplasms of unspecified nature or uncertain behavior (5 sources) Neoplasm of soft tissue; 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] Onset: 7 02-10-2017 Episodic Other connective tissue disease (4 sources) Palmar fascial fibromatosis [Dupuytren]; Translations: [Contracture of palmar fascia] Onset: 4 07-05-2022 Episodic Other disorders of stomach and duodenum (1 source) Functional dyspepsia; Translations: [Functional dyspepsia] Onset: 5 Episodic Other screening for suspected conditions (not mental disorders or infectious disease) (13 sources) Patient encounter status; Translations: [Encounter for screening for malignant neoplasm of colon] Onset: 4 06-21-2022 Episodic Residual codes; unclassified (1 source) Asymptomatic menopausal state; Translations: [Asymptomatic menopausal state] Onset: 4 Episodic Unclassified (7 sources) cancer removed 11-07-2021 Comment on above: left ear and nose 20 15 Results Test Name Value Interpretation Reference Range Facility Gastroenterology Visit Repor ton 10-28-2024 Gastroenterology Visit Report [facility] Gastroenterology [address] [place] [address] OFFICE VISIT Date of Service: 10/28/24 MR#: [id number] Acct: [id number] Name: GEORGIA RO Rep #: [id number] : 1945 Provider: BHANU Muñoz Age/Sex: 79/F [place] [facility] [place]: Signed Intake Vital Signs 10/27/24 09:41 Height 5 ft 6 in Weight: 202 lb BMI 32.5 BP 112/66 Blood Pressure Location Lt brachial Position Sitting Respiration 16 Pulse 66 Pulse Source Monitor Temp 97.5 F L Temp Source Temporal Pulse Oximetry (%) 95 Oxygen Delivery Method room air Intake Visit Reasons: FU PER RUBY Chief Complaint: black stools Allergies lisinopril (From Zestril) Adverse Reaction (Intermediate, Verified 10/27/24 09:32) Cough hydrocodone bitartrate (From Vicodin) Adverse Reaction (Mild, Verified 10/27/24 09:32) Itching Have you fallen in the past year?: No Nurse's Note: OV 10/28/24 Pt here for a f/u and reports nausea, abdominal pain, dark loose bm every other day. Continue pantoprazole and carafate. [facility] Medical History (Updated 10/27/24 @ 12:[address] Eboni Katz MD) Dyspnea on exertion Osteopenia PONV (postoperative nausea and vomiting) GI bleed Dark stools Left renal mass Abnormal CT of the abdomen Dupuytren contracture of right hand LLQ pain Obesity (BMI 30-39.9) Small lymphocytic lymphoma Wears glasses Wears partial dentures Wears dentures Seasonal allergies Non-smoker Sinusitis GERD (gastroesophageal reflux disease) Borderline type 2 diabetes mellitus Right hand pain Hyperglycemia Chronic sinusitis Shortness of breath Bilateral lower extremity edema Flu vaccine need Health care maintenance Tinnitus H/O tinnitus Chronic vertigo Cataracts, bilateral Back problem Actinic keratosis Cancer of skin of left ear Dupuytren's contracture Open cat bite of hand Cat bite of right hand with infection Restless leg syndrome Arthritis Vertigo High cholesterol Chronic hypertension Generalized osteoarthritis Surgical History (Updated 10/27/24 @ 09:41 by Catherine Hou MA) History of surgical removal of skin lesion History of lymph node excision History of left knee replacement History of colonoscopy History of lymph node biopsy History of cataract extraction H/O vaginal hysterectomy History of hysterectomy Cancer of skin of left ear Cat bite of right hand including fingers with infection Dupuytren contracture cancer removed S/P appendectomy S/P arthroscopy of knee History of total right knee replacement Family History Father Myocardial infarction Heart disease Hypertension Mother Breast cancer Grandmother Breast cancer Sister Lung cancer Seizures Social History Smoking Status: Never smoker alcohol intake: never substance use type: does not use caffeine: Yes what type of physical activity do you participate in: none seatbelt use: always do you feel safe at home: Yes additional social history: Nelly [employer] SUN EXPOSURE: FREQUENTLY HPI HPI Chief Complaint: black stools Details: GEORGIA RO, is a 79 F who presents to the office today for f/u. I established 02.27.24 with complaints of burning esophageal/epigastric pain, nausea and black stools. Presented to the ED with these symptoms and was discharged on Pantoprazole 40 mg BID and Carafate 1 gram bid. Last EGD [address] abdomen pelvis 02.24.24; Findings which may be consistent with nonspecific gastritis.. Hyperdense left renal nodule consistent with hemorrhagic cyst unchanged since previous study No evidence for small bowel obstruction or other acute abnormality post hysterectomy and appendectomy EGD 03.29.24; - Z-line irregular, 39 cm from the incisors. Biopsied. - Small hiatal hernia. - A single gastric polyp. - Erythematous mucosa in the gastric body. Biopsied. - No gross lesions in the first portion of the duodenum. Biopsied. *2.. office contacted due to black stools and continued pain. CBC wnl, KUB showing constipation, FOBT negative OV 2..25; Pt continues to have daily burning epigastric pain. She endorses nausea, bloating and constipation. She continues with pantoprazole once daily. SHe does not feel like the PPI or Carafate has helped with her symptoms. She feels her symptoms may be related to her gallbladder. She is also having constipation with small hard bm daily. SHe takes Benefiber daily. OV 7.10.25 Pt with black stools x2 weeks. They are intermittently black. Alternating between soft and normal stools. SHe continue to have lower abd cramping, epigastric pain and nausea. She has not noticed these symptoms being par (more content not included)... Normal [facility] Absolute lymphocyte countOrd ered By: Eboni Katz on 10-27-2024 Lymphocytes Auto (Unsp spec) [#/Vol] 2.39 10*3/uL 0.83-4.51 [facility] Absolute neutrophil countOrd ered By: Eboni Katz on 10-27-2024 Neutrophils (Bld) [#/Vol] 3.9 10*3/uL 2.0-7.7 [facility] Anion gap in Serum or Plasma Ordered By: Eboni Katz on 10-27-2024 Anion gap [Moles/Vol] 13 mmol/L 5-15 [facility] Automated lymphocyte count a s percentage of total leukocytesOrdered By: Eboni Katz on 10-27-2024 Lymphocytes/100 WBC Auto (Unsp spec) 33.1 % 19- [facility] BUN/creatinine ratioOrdered By: Eboni Katz on 10-27-2024 Urea nitrogen/Creatinine [Mass ratio] 17.3 mg/mg 10-20 [facility] Basophil percentageOrdered B y: Eboni Katz on 10-27-2024 Basophils/100 WBC (Bld) 0.8 % 0-1 [facility] Bilirubin, totalOrdered By: Eboni Katz on 10-27-2024 Bilirubin [Mass/Vol] 0.65 mg/dL 0.00-1.30 [facility] CBC W/Diff, Automatedon Absolute Lymph 2.39 X10 3/uL Normal 0.83-4.51 [facility] Comment on above: Performed By: #### L 501.9520, L500.4050, L506.1001, L100.0100, L506.0400 ####[facility] [id number] [place], [address] Absolute Neut 3.9 X10 3/uL Normal 2.0-7.7 [facility] Comment on above: Performed By: #### L 501.9520, L500.4050, L506.1001, L100.0100, L506.0400 ####[facility] [address] [place], [address] Basophils/100 WBC (Bld) 0.8 % Normal 0-1 [facility] Comment on above: Performed By: #### L 501.9520, L500.4050, L506.1001, L100.0100, L506.0400 ####[facility] [id number] [place], [address] Eosinophils/100 WBC (Bld) 1.9 % Normal 0-5 [facility] Comment on above: Performed By: #### L 501.9520, L500.4050, L506.1001, L100.0100, L506.0400 ####[facility] [id number] [place], [address] Erythrocyte distribution width (RBC) [Ratio] 13.6 % Normal 11.6-14.6 [facility] Comment on above: Performed By: #### L 501.9520, L500.4050, L506.1001, L100.0100, L506.0400 ####[facility] [address] [place], [address] Hematocrit (Bld) [Volume fraction] 41.9 % Normal 37-47 [facility] Comment on above: Performed By: #### L 501.9520, L500.4050, L506.1001, L100.0100, L506.0400 ####[facility] [address] [place], [address] Hemoglobin (Bld) [Mass/Vol] 13.7 g/dL Normal 12.0-15.0 [facility] Comment on above: Performed By: #### L 501.9520, L500.4050, L506.1001, L100.0100, L506.0400 ####[facility] [address] [place], [address] IG% 0.300 Normal 0.0-0.9 [facility] Comment on above: Result Comment: IG% - Immature Granulocytes (promyelocytes, myelocytes and metamyelocytes) > 1% indicates that a LEFT SHIFT is Present. Performed By: #### L 501.9520, L500.4050, L506.1001, L100.0100, L506.0400 ####[facility] [address] [place], [address] Lymphocytes/100 WBC (Bld) 33.1 % Normal 19-41 [facility] Comment on above: Performed By: #### L 501.9520, L500.4050, L506.1001, L100.0100, L506.0400 ####[facility] [address] [place], [address] MCH (RBC) [Entitic mass] 29.7 pg Normal 27.0-32.0 [facility] Comment on above: Performed By: #### L 501.9520, L500.4050, L506.1001, L100.0100, L506.0400 ####[facility] [address] [place], [address] MCHC (RBC) [Mass/Vol] 32.7 g/dL Normal 32-36 [facility] Comment on above: Performed By: #### L 501.9520, L500.4050, L506.1001, L100.0100, L506.0400 ####[facility] [address] [place], [address] MCV (RBC) [Entitic vol] 90.9 fL Normal 81-99 [facility] Comment on above: Performed By: #### L 501.9520, L500.4050, L506.1001, L100.0100, L506.0400 ####[facility] [address] [place], [address] Monocytes/100 WBC (Bld) 10.0 % Normal 0-10 [facility] Comment on above: Performed By: #### L 501.9520, L500.4050, L506.1001, L100.0100, L506.0400 ####[facility] [address] [place], [address] Neutrophils/100 WBC (Bld) 53.9 % Normal 47-70 [facility] Comment on above: Performed By: #### L 501.9520, L500.4050, L506.1001, L100.0100, L506.0400 ####[facility] [address] [place], [address] Nucleated RBC (Bld) [#/Vol] 0 10*3/uL Normal 0-5 [facility] Comment on above: Performed By: #### L 501.9520, L500.4050, L506.1001, L100.0100, L506.0400 ####[facility] [address] [place], [address] Platelet mean volume (Bld) [Entitic vol] 11.2 fL Normal 6.2-12.0 [facility] Comment on above: Performed By: #### L 501.9520, L500.4050, L506.1001, L100.0100, L506.0400 ####[facility] [address] [place], [address] Platelets (Bld) [#/Vol] 233 10*3/uL Normal 150-450 [facility] Comment on above: Performed By: #### L 501.9520, L500.4050, L506.1001, L100.0100, L506.0400 ####[facility] [address] [place], [address] RBC (Bld) [#/Vol] 4.61 10*6/uL Normal 4.2-5.4 [facility] Comment on above: Performed By: #### L 501.9520, L500.4050, L506.1001, L100.0100, L506.0400 ####[facility] [address] [place], [address] RDW SD 45.1 fl High 35.1-43.9 [facility] Comment on above: Performed By: #### L 501.9520, L500.4050, L506.1001, L100.0100, L506.0400 ####[facility] [address] [place], [address] WBC (Bld) [#/Vol] 7.2 10*3/uL Normal 4.4-11.0 [facility] Comment on above: Performed By: #### L 501.9520, L500.4050, L506.1001, L100.0100, L506.0400 ####[facility] [address] [place], [address] Carbon dioxide, total [Moles /volume] in Central venous bloodOrdered By: Eboni Katz on 10-27-2024 CO2 [Moles/Vol] 25.6 mmol/L 21.0-32.0 [facility] Chloride assayOrdered By: Phillip Katz on 10-27-2024 Chloride [Moles/Vol] 101 mmol/L 98-108 [facility] Comprehensive Metabolic Prof ilon 10-27-2024 Albumin [Mass/Vol] 4.3 g/dL Normal 3.4-4.8 [facility] Comment on above: Performed By: #### L 501.9520, L500.4050, L506.1001, L100.0100, L506.0400 ####[facility] [address] [place], [address] Albumin/Globulin [Mass ratio] 1.5 {ratio} Normal 0.9-2.4 [facility] Comment on above: Performed By: #### L 501.9520, L500.4050, L506.1001, L100.0100, L506.0400 ####[facility] [address] [place], [address] ALK PHOS 88 U/L Normal 35-104 [facility] Comment on above: Performed By: #### L 501.9520, L500.4050, L506.1001, L100.0100, L506.0400 ####[facility] [address] [place], [address] ALT [Catalytic activity/Vol] 19 U/L Normal <=34 [facility] Comment on above: Performed By: #### L 501.9520, L500.4050, L506.1001, L100.0100, L506.0400 ####[facility] [address] [place], [address] AST [Catalytic activity/Vol] 25 U/L Normal <=31 [facility] Comment on above: Performed By: #### L 501.9520, L500.4050, L506.1001, L100.0100, L506.0400 ####[facility] [address] [place], [address] Bilirubin [Mass/Vol] 0.65 mg/dL Normal 0.00-1.30 [facility] Comment on above: Performed By: #### L 501.9520, L500.4050, L506.1001, L100.0100, L506.0400 ####[facility] [address] [place], [address] BUN/CRE 17.3 RATIO Normal 10-20 [facility] Comment on above: Performed By: #### L 501.9520, L500.4050, L506.1001, L100.0100, L506.0400 ####[facility] [address] [place], [address] Calcium [Mass/Vol] 10.1 mg/dL Normal 7.6-11.0 [facility] Comment on above: Performed By: #### L 501.9520, L500.4050, L506.1001, L100.0100, L506.0400 ####[facility] [address] [place], [address] Chloride [Moles/Vol] 101 mmol/L Normal 98-108 [facility] Comment on above: Performed By: #### L 501.9520, L500.4050, L506.1001, L100.0100, L506.0400 ####[facility] [address] [place], [address] CO2 [Moles/Vol] 25.6 mmol/L Normal 21.0-32.0 [facility] Comment on above: Performed By: #### L 501.9520, L500.4050, L506.1001, L100.0100, L506.0400 ####[facility] [address] [place], [address] Creatinine [Mass/Vol] 1.13 mg/dL Normal 0.70-1.20 [facility] Comment on above: Performed By: #### L 501.9520, L500.4050, L506.1001, L100.0100, L506.0400 ####[facility] [address] [place], [address] GAP 13 Normal 5-15 [facility] Comment on above: Performed By: #### L 501.9520, L500.4050, L506.1001, L100.0100, L506.0400 ####[facility] [address] [place], [address] GFR/1.73 sq M.predicted among non-blacks MDRD (S/P/Bld) [Vol rate/Area] 50 mL/min/{1.73_m2} Low >60 [facility] Comment on above: Result Comment: mL/m in/1.73m2 CKD-EPI Creatinine Equation (2020) Performed By: #### L 501.9520, L500.4050, L506.1001, L100.0100, L506.0400 ####[facility] [address] [place], [address] Globulin (S) [Mass/Vol] 2.9 g/dL Normal 2.2-4.2 [facility] Comment on above: Performed By: #### L 501.9520, L500.4050, L506.1001, L100.0100, L506.0400 ####[facility] [address] [place], [address] Glucose [Mass/Vol] 103 mg/dL High 70-99 [facility] Comment on above: Performed By: #### L 501.9520, L500.4050, L506.1001, L100.0100, L506.0400 ####[facility] [address] [place], [address] Potassium [Moles/Vol] 4.8 mmol/L Normal 3.3-5.1 [facility] Comment on above: Performed By: #### L 501.9520, L500.4050, L506.1001, L100.0100, L506.0400 ####[facility] [address] [place], [address] Sodium [Moles/Vol] 140 mmol/L Normal 133-145 [facility] Comment on above: Performed By: #### L 501.9520, L500.4050, L506.1001, L100.0100, L506.0400 ####[facility] [address] [place], [address] T PROT 7.2 g/dL Normal 5.9-8.4 [facility] Comment on above: Performed By: #### L 501.9520, L500.4050, L506.1001, L100.0100, L506.0400 ####[facility] [address] [place], [address] Urea nitrogen [Mass/Vol] 20 mg/dL High 4-19 [facility] Comment on above: Performed By: #### L 501.9520, L500.4050, L506.1001, L100.0100, L506.0400 ####[facility] [address] [place], [address] Eosinophil percentageOrdered By: Eboni Katz on 10-27-2024 Eosinophils/100 WBC (Bld) 1.9 % 0-5 [facility] Erythrocyte distribution wid th ratioOrdered By: [facility] Katz on 10-27-2024 Erythrocyte distribution width (RBC) [Ratio] 13.6 % 11.6-14.6 [facility] Erythrocyte distribution wid th standard deviationOrdered By: sumanmoffettaretha Katz on 10-27-2024 Erythrocyte distribution width (RBC) [Ratio] 45.1 fl High 35.1-43.9 [facility] Glomerular filtration rate ( GFR) estimation/1.73 sq m using serum, plasma, or whole bOrdered By: sumanmoffettaretha Katz on 10-27-2024 GFR/1.73 sq M.predicted among non-blacks MDRD (S/P/Bld) [Vol rate/Area] 50 mL/min/{1.73_m2} Low >60 [facility] Comment on above: mL/min/1.73m2 CKD-EP I Creatinine Equation (2020) Hematocrit Auto (Bld) [Volum e fraction]Ordered By: Eboni Katz on 10-27-2024 Hematocrit (Bld) [Volume fraction] 41.9 % 37-47 [facility] Hemoglobin measurementOrdere d By: Eboni Katz on 10-27-2024 Hemoglobin (Bld) [Mass/Vol] 13.7 g/dL 12.0-15.0 [facility] Immature granulocytes/100 WB C Auto (Bld)Ordered By: Eboni Katz on 10-27-2024 Immature granulocytes/100 WBC (Bld) 0.300 % 0.0-0.9 [facility] Comment on above: IG% - Immature Granu locytes (promyelocytes, myelocytes and metamyelocytes) > 1% indicates that a LEFT SHIFT is Present. Internal Medicine Office Vis randy 10-27-2024 Internal Medicine Office Visit [facility] [place] [address] [place] [address] OFFICE VISIT Date of Service: 10/27/24 MR#: [id number] Acct: [id number] Name: GEORGIA RO Rep #: [id number] : 1945 Provider: Dr. 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: No Is patient in pain?: No Allergies lisinopril (From Zestril) Adverse Reaction (Intermediate, Verified 10/27/24 09:32) Cough hydrocodone bitartrate (From Vicodin) Adverse Reaction (Mild, Verified 10/27/24 09:32) Itching Medications ???Medication ???Instructions ???Recorded ???Confirmed ???Type multivitamin with iron 1 tab PO DAILY 03/31/13 10/27/24 H istory biotin 2,500 mcg capsule 2,500 mcg PO ONCE 07/15/17 5 History celecoxib 200 mg capsule (Celebrex) 200 mg PO DAILY PRN pain #90 ca ps 09/16/23 10/27/24 Rx potassium chloride 20 mEq 20 meq PO BID #180 tabs 01/26/24 0 10/27/24 Rx tablet,extended release hydrochlorothiazide 25 mg tablet See Rx Instructions .Route 5 10/27/24 Rx .COMPLEX #90 tabs ropinirole 0.5 mg tablet 0.5 mg PO TID #360 tabs 06/28/24 0 10/27/24 Rx losartan 100 mg tablet 100 mg PO DAILY 3 months #90 tabs 09/06/24 10/27/24 Rx oxybutynin chloride 10 mg 10 mg PO QDAY #90 tabs 09/06/24 Rx tablet,extended release 24 hr amlodipine 5 mg tablet 7.5 mg (1.5 x 5 mg) PO DAILY 3 06/1510/27/24 Rx months #135 tabs metformin 500 mg tablet,extended 500 mg PO BID #90 tabs 10/04/24 Rx release 24 hr acetaminophen 325 mg tablet 650 mg PO Q4H PRN PRN Pain Or Feve r 10/27/24 History aspirin 81 mg tablet 81 mg PO QDAY 10/27/24 10/27/24 Hi story pantoprazole 40 mg tablet,delayed 40 mg PO BID #180 tabs 10/27/24 Rx release sucralfate 1 gram tablet (Carafate) 1 g PO QACHS 2 weeks #56 tabs 0 10/27/24 10/27/24 Rx Have you fallen in the past year?: No Nurse's Note: Pt c/o fatigue all the time, states it has been ongoing, but getting worse. Pt states she is waking up q4-5 hours to urinate. Pt states she sometimes is able to fall back asleep but usually is not able to. Pt states she averages 4-6 hours a night. Pt refuses to take a nap. Pt is able to go to sleep when she intially lays down for bed. Also had ongoing sob on exertion such as going up stairs that has been getting worse and been ongoing for a long time. pt states she had a stress test a long time ago. Pt denies chest pain just sob. [facility] Medical History (Updated 10/27/24 @ 12:[address] Eboni Katz MD) Dyspnea on exertion Osteopenia PONV (postoperative nausea and vomiting) GI bleed Dark stools Left renal mass Abnormal CT of the abdomen Dupuytren contracture of right hand LLQ pain Obesity (BMI 30-39.9) Small lymphocytic lymphoma Wears glasses Wears partial dentures Wears dentures Seasonal allergies Non-smoker Sinusitis GERD (gastroesophageal reflux disease) Borderline type 2 diabetes mellitus Right hand pain Hyperglycemia Chronic sinusitis Shortness of breath Bilateral lower extremity edema Flu vaccine need Health care maintenance Tinnitus H/O tinnitus Chronic vertigo Cataracts, bilateral Back problem Actinic keratosis Cancer of skin of left ear Dupuytren's contracture Open cat bite of hand Cat bite of right hand with infection Restless leg syndrome Arthritis Vertigo High cholesterol Chronic hypertension Generalized osteoarthritis Surgical History (Updated 10/27/24 @ 09:41 by Catherine Hou MA) History of surgical removal of skin lesion History of lymph node excision History of left knee replacement History of colonoscopy History of lymph node biopsy History of cataract extraction H/O vaginal hysterectomy History of hysterectomy Cancer of skin of left ear Cat bite of right hand including fingers with infection Dupuytren contracture cancer removed S/P appendectomy S/P arthroscopy of knee History of total right knee replacement Family History Father Myocardial infarction Heart disease Hypertension Mother Breast cancer Grandmother Breast cancer Sister Lung cancer Seizures Social History Smoking Status: Never smoker alcohol intake: (more content not included)... Normal [facility] Laboratory - Chemistry and C hemistry - challengeOrdered By: Eboni Katz on 10-27-2024 AST [Catalytic activity/Vol] 25 U/L <32 [facility] MCV (mean corpuscular volume ) determinationOrdered By: Eboni Katz on 10-27-2024 MCV (RBC) [Entitic vol] 90.9 fL 81-99 [facility] Mean corpuscular hemoglobin (MCH) determinationOrdered By: Eboni Katz on 10-27-2024 MCH (RBC) [Entitic mass] 29.7 pg 27.0-32.0 [facility] Mean corpuscular hemoglobin concentration (MCHC) determinationOrdered By: Eboni Katz on 10-27-2024 MCHC (RBC) [Mass/Vol] 32.7 g/dL 32-36 [facility] Mean platelet volume determi nationOrdered By: Eboni Katz on 10-27-2024 Platelet mean volume (Bld) [Entitic vol] 11.2 fL 6.2-12.0 [facility] Monocyte percentageOrdered B y: Eboni Katz on 10-27-2024 Monocytes/100 WBC (Bld) 10.0 % 0-10 [facility] Neutrophil percentageOrdered By: Eboni Katz on 10-27-2024 Neutrophils/100 WBC (Bld) 53.9 % 47-70 [facility] Nucleated red blood cell per centageOrdered By: Eboni Katz on 10-27-2024 Nucleated RBC/100 WBC (Bld) [Ratio] 0 % 0-5 [facility] Platelet countOrdered By: Phillip Katz on 10-27-2024 Platelets (Bld) [#/Vol] 233 10*3/uL 150-450 [facility] Potassium measurement (mass/ volume)Ordered By: Eboni Katz on 10-27-2024 Potassium (Unsp spec) [Mass/Vol] 4.8 mmol/L 3.3-5.1 [facility] RBC Auto (Bld) [#/Vol]Ordere d By: Eboni Katz on 10-27-2024 RBC (Bld) [#/Vol] 4.61 10*6/uL 4.2-5.4 [facility] Serum creatinine measurement (mass/volume)Ordered By: Eboni Katz on 10-27-2024 Creatinine [Mass/Vol] 1.13 mg/dL 0.70-1.20 [facility] Serum globulin measurementOr dered By: Eboni Katz on 10-27-2024 Globulin (S) [Mass/Vol] 2.9 g/dL 2.2-4.2 [facility] Serum glucose measurement (m ass/volume)Ordered By: Eboni Katz on 10-27-2024 Glucose [Mass/Vol] 103 mg/dL High 70-99 [facility] Serum or plasma alanine rocha otransferase (ALT) measurementOrdered By: Eboni Katz on 10-27-2024 ALT [Catalytic activity/Vol] 19 U/L <35 [facility] Serum or plasma albumin jose l urement (mass/volume)Ordered By: Eboni Katz on 10-27-2024 Albumin [Mass/Vol] 4.3 g/dL 3.4-4.8 [facility] Serum or plasma albumin/glob ulin mass ratioOrdered By: Eboni Katz on 10-27-2024 Albumin/Globulin [Mass ratio] 1.5 {ratio} 0.9-2.4 [facility] Serum or plasma alkaline kamaljit sphatase measurementOrdered By: Phillipjennifer Allensarai on 10-27-2024 ALP [Catalytic activity/Vol] 88 U/L 35-104 [facility] Serum or plasma calcium jose l urement (mass/volume)Ordered By: Eboni Allenzacherylenore on 10-27-2024 Calcium [Mass/Vol] 10.1 mg/dL 7.6-11.0 [facility] Serum or plasma urea nitroge n measurement (mass/volume)Ordered By: Eboni Allenzacherylenore on 10-27-2024 Urea nitrogen [Mass/Vol] 20 mg/dL High 4-19 [facility] Sodium levelOrdered By: Phillipsuman francheska Alejandrozacherylenore on 10-27-2024 Sodium [Moles/Vol] 140 mmol/L 133-145 [facility] T4 Free Directon 10-27-2024 T4 FREE DIRECT 1.30 ng/dL Normal 0.76-1.46 [facility] Comment on above: Performed By: #### L 501.9520, L500.4050, L506.1001, L100.0100, L506.0400 ####[facility] [address] [place], [place], [address] T4 freeOrdered By: Eboni Katz on 10-27-2024 Free T4 [Mass/Vol] 1.30 ng/dL 0.76-1.46 [facility] TSH DL <= 0.005 mIU/L QnOrde red By: Eboni Katz on 10-27-2024 TSH Qn 3.280 uIU/mL 0.300-4.200 [facility] Thyroid Stim Hormone (TSH)on 10-27-2024 TSH 3.280 uIU/mL Normal 0.300-4.200 [facility] Comment on above: Performed By: #### L 501.9520, L500.4050, L506.1001, L100.0100, L506.0400 ####[facility] [address] [place], [place], [address] Total proteinOrdered By: Kentrell Katz on 10-27-2024 Protein [Mass/Vol] 7.2 g/dL 5.9-8.4 [facility] Vitamin D,25 Hydroxyon 10-27 Vitamin D 25-OH 53.2 ng/mL Normal 30-100 [facility] Comment on above: Result Comment: Miryam min D Status Deficiency: <20 ng/mL (50nmol/L) Insufficiency: 20-30 ng/mL (50-75 nmol/L) Sufficiency: 30-100 ng/mL (75-250 nmol/L) Toxicity: >100 ng/mL (>250 nmol/L) Performed By: #### L 501.9520, L500.4050, L506.1001, L100.0100, L506.0400 ####[facility] [address] [place], [place], [address] White blood cell (WBC) count Ordered By: Eboni Katz on 10-27-2024 WBC (Bld) [#/Vol] 7.2 10*3/uL 4.4-11.0 [facility] Internal Medicine Office Vis itolauren 07-26-2024 Internal Medicine Office Visit [facility] [address] [place] [address] [place] [address] OFFICE VISIT Date of Service: 07/26/24 MR#: [id number] Acct: [id number] Name: GEORIGA RO ANN Rep #: [id number] : 1945 Provider: Dr. Eboni garcia MD Age/Sex: 78/F Location: [facility] Status: Signed Intake Vital Signs 04/19/24 10:28 06/24/24 11:32 07/26/24 09:08 Height 5 ft 6 in 5 ft 6 in 5 ft 6 in Weight: 213 lb BMI 34.3 BP 124/68 H Blood Pressure Location Lt brachial Position Sitting Respiration 18 Pulse 72 Pulse Source Monitor Temp 98.2 F Temp Source Temporal Pulse Oximetry (%) 96 Oxygen Delivery Method room air Intake Visit Reasons: 3 M FU Chief Complaint: 3 M FU Is patient in pain?: No Allergies lisinopril (From Zestril) Adverse Reaction (Intermediate, Verified 07/26/24 09:04) Cough hydrocodone bitartrate (From Vicodin) Adverse Reaction (Mild, Verified 07/26/24 09:04) Itching Medications ???Medication ???Instructions ???Recorded ???Confirmed ???Type multivitamin with iron 1 tab PO DAILY 03/31/13 07/26/24 H istory biotin 2,500 mcg capsule 2,500 mcg PO ONCE 07/15/17 5 History acetaminophen 325 mg tablet 650 mg (2 x 325 mg) PO Q4H PRN PRN 05/21/23 07/26/24 Rx Pain Or Fever #0 tabs amlodipine 5 mg tablet 7.5 mg (1.5 x 5 mg) PO DAILY 3 07/1207/26/24 Rx months #135 tabs celecoxib 200 mg capsule (Celebrex) 200 mg PO DAILY PRN pain #90 ca ps 09/16/23 07/26/24 Rx losartan 100 mg tablet 100 mg PO DAILY 3 months #90 tabs 11/19/23 07/26/24 Rx potassium chloride 20 mEq 20 meq PO BID #180 tabs 01/26/24 0 07/26/24 Rx tablet,extended release pantoprazole 40 mg tablet,delayed 40 mg PO BID 3 months #180 tabs 1 07/26/24 Rx release hydrochlorothiazide 25 mg tablet See Rx Instructions .Route 5 07/26/24 Rx .COMPLEX #90 tabs ropinirole 0.5 mg tablet 0.5 mg PO TID #360 tabs 06/28/24 0 07/26/24 Rx metformin 500 mg tablet,extended 500 mg PO QPM #90 tabs 07/26/24 Rx release 24 hr oxybutynin chloride 5 mg tablet 5 mg PO QDAY 07/26/24 07/26/24 His tory semaglutide 0.25 mg or 0.5 mg (2 0.25 mg (0.368 mL) subcut QWEEK #3 07/26/24 07/26/24 Rx mg/3 mL) subcutaneous pen injector mL (Ozempic) Have you fallen in the past year?: No Nurse's Note: pt states she is out of metformin [facility] Medical History PONV (postoperative nausea and vomiting) GI bleed Dark stools Left renal mass Abnormal CT of the abdomen Dupuytren contracture of right hand LLQ pain Obesity (BMI 30-39.9) Small lymphocytic lymphoma Wears glasses Wears partial dentures Wears dentures Seasonal allergies Non-smoker Sinusitis GERD (gastroesophageal reflux disease) Borderline type 2 diabetes mellitus Right hand pain Hyperglycemia Chronic sinusitis Shortness of breath Bilateral lower extremity edema Flu vaccine need Health care maintenance Tinnitus H/O tinnitus Chronic vertigo Cataracts, bilateral Back problem Actinic keratosis Cancer of skin of left ear Dupuytren's contracture Open cat bite of hand Cat bite of right hand with infection Restless leg syndrome Arthritis Vertigo High cholesterol Chronic hypertension Generalized osteoarthritis Surgical History History of lymph node excision History of left knee replacement History of colonoscopy History of lymph node biopsy History of cataract extraction H/O vaginal hysterectomy History of hysterectomy Cancer of skin of left ear Cat bite of right hand including fingers with infection Dupuytren contracture cancer removed S/P appendectomy S/P arthroscopy of knee History of total right knee replacement Family History Father Myocardial infarction Heart disease Hypertension Mother Breast cancer Grandmother Breast cancer Sister Lung cancer Seizures Social History Smoking Status: Never smoker alcohol intake: never substance use type: does not use caffeine: Yes what type of physical activity do you participate in: none seatbelt use: always do you feel safe at home: Yes additional social history: - Manuel SUN EXPOSURE: FREQUENTLY HPI HPI Chief Complaint: 3 M FU Details: GEORGIA RO, is a 78 F who presents to the office today for follow-up of her chronic medical conditions. History of borderline diabetes currently on metformin. Has been out of metformin for about a month due to some confusion with the pharmacy. Otherwise, she states that she has been taking it consistently. Has had some increased bowel movements/abdominal discomfort on it but contin (more content not included)... Normal [facility] - Hematology and Cell countsOrdered By: Eboni Katz on 07-26-2024 HbA1c (Bld) [Mass fraction] 6.2 % 4.2-6.3 [facility] CBC W/Diff, Automatedon - Absolute Lymph 2.22 X10 3/uL Normal 0.83-4.51 [facility] Comment on above: Performed By: #### L 504.2610, L100.0100, L500.4050 ####[facility] [address] [place], [address] Absolute Neut 4.3 X10 3/uL Normal 2.0-7.7 [facility] Comment on above: Performed By: #### L 504.2610, L100.0100, L500.4050 ####[facility] [address] [place], [address] Basophils/100 WBC (Bld) 1.1 % High 0-1 [facility] Comment on above: Performed By: #### L 504.2610, L100.0100, L500.4050 ####[facility] [address] [place], [address] Eosinophils/100 WBC (Bld) 2.3 % Normal 0-5 [facility] Comment on above: Performed By: #### L 504.2610, L100.0100, L500.4050 ####[facility] [address] [place], [address] Erythrocyte distribution width (RBC) [Ratio] 12.8 % Normal 11.6-14.6 [facility] Comment on above: Performed By: #### L 504.2610, L100.0100, L500.4050 ####[facility] [address] [place], [address] Hematocrit (Bld) [Volume fraction] 39.5 % Normal 37-47 [facility] Comment on above: Performed By: #### L 504.2610, L100.0100, L500.4050 ####[facility] [address] [place], [address] Hemoglobin (Bld) [Mass/Vol] 13.1 g/dL Normal 12.0-15.0 [facility] Comment on above: Performed By: #### L 504.2610, L100.0100, L500.4050 ####[facility] [address] [place], [address] IG% 0.700 Normal 0.0-0.9 [facility] Comment on above: Result Comment: IG% - Immature Granulocytes (promyelocytes, myelocytes and metamyelocytes) > 1% indicates that a LEFT SHIFT is Present. Performed By: #### L 504.2610, L100.0100, L500.4050 ####[facility] [address] [place], [address] Lymphocytes/100 WBC (Bld) 29.5 % Normal 19-41 [facility] Comment on above: Performed By: #### L 504.2610, L100.0100, L500.4050 ####[facility] [address] [place], [address] MCH (RBC) [Entitic mass] 29.7 pg Normal 27.0-32.0 [facility] Comment on above: Performed By: #### L 504.2610, L100.0100, L500.4050 ####[facility] [address] [place], [address] MCHC (RBC) [Mass/Vol] 33.2 g/dL Normal 32-36 [facility] Comment on above: Performed By: #### L 504.2610, L100.0100, L500.4050 ####[facility] [address] [place], [address] MCV (RBC) [Entitic vol] 89.6 fL Normal 81-99 [facility] Comment on above: Performed By: #### L 504.2610, L100.0100, L500.4050 ####[facility] [address] [place], [address] Monocytes/100 WBC (Bld) 9.0 % Normal 0-10 [facility] Comment on above: Performed By: #### L 504.2610, L100.0100, L500.4050 ####[facility] [address] [place], [address] Neutrophils/100 WBC (Bld) 57.4 % Normal 47-70 [facility] Comment on above: Performed By: #### L 504.2610, L100.0100, L500.4050 ####[facility] [address] [place], [address] Nucleated RBC (Bld) [#/Vol] 0 10*3/uL Normal 0-5 [facility] Comment on above: Performed By: #### L 504.2610, L100.0100, L500.4050 ####[facility] [address] [place], [address] Platelet mean volume (Bld) [Entitic vol] 10.5 fL Normal 6.2-12.0 [facility] Comment on above: Performed By: #### L 504.2610, L100.0100, L500.4050 ####[facility] [address] [place], [address] Platelets (Bld) [#/Vol] 229 10*3/uL Normal 150-450 [facility] Comment on above: Performed By: #### L 504.2610, L100.0100, L500.4050 ####[facility] [address] [place], [address] RBC (Bld) [#/Vol] 4.41 10*6/uL Normal 4.2-5.4 [facility] Comment on above: Performed By: #### L 504.2610, L100.0100, L500.4050 ####[facility] [address] [place], [address] RDW SD 42.1 fl Normal 35.1-43.9 [facility] Comment on above: Performed By: #### L 504.2610, L100.0100, L500.4050 ####[facility] [address] [place], [address] WBC (Bld) [#/Vol] 7.5 10*3/uL Normal 4.4-11.0 [facility] Comment on above: Performed By: #### L 504.2610, L100.0100, L500.4050 ####[facility] [address] [place], [address] [facility] 06-24-2024 Albumin [Mass/Vol] 4.2 g/dL Normal 3.4-4.8 [facility] Comment on above: Performed By: #### L 504.2610, L100.0100, L500.4050 ####[facility] [address] [place], [address] Albumin/Globulin [Mass ratio] 1.5 {ratio} Normal 0.9-2.4 [facility] Comment on above: Performed By: #### L 504.2610, L100.0100, L500.4050 ####[facility] [address] [place], [address] ALK PHOS 98 U/L Normal 35-104 [facility] Comment on above: Performed By: #### L 504.2610, L100.0100, L500.4050 ####[facility] [address] [place], [address] ALT [Catalytic activity/Vol] 13 U/L Normal <=34 [facility] Comment on above: Performed By: #### L 504.2610, L100.0100, L500.4050 ####[facility] [address] [place], [address] AST [Catalytic activity/Vol] 19 U/L Normal <=31 [facility] Comment on above: Performed By: #### L 504.2610, L100.0100, L500.4050 ####[facility] [address] [place], [address] Bilirubin [Mass/Vol] 0.47 mg/dL Normal 0.00-1.30 [facility] Comment on above: Performed By: #### L 504.2610, L100.0100, L500.4050 ####[facility] [address] [place], [address] BUN/CRE 19.7 RATIO Normal 10-20 [facility] Comment on above: Performed By: #### L 504.2610, L100.0100, L500.4050 ####[facility] [address] [place], [address] Calcium [Mass/Vol] 9.7 mg/dL Normal 7.6-11.0 [facility] Comment on above: Performed By: #### L 504.2610, L100.0100, L500.4050 ####[facility] [address] [place], [address] Chloride [Moles/Vol] 100 mmol/L Normal 98-108 [facility] Comment on above: Performed By: #### L 504.2610, L100.0100, L500.4050 ####[facility] [address] [place], [address] CO2 [Moles/Vol] 25.9 mmol/L Normal 21.0-32.0 [facility] Comment on above: Performed By: #### L 504.2610, L100.0100, L500.4050 ####[facility] [address] [place], [address] Creatinine [Mass/Vol] 1.09 mg/dL Normal 0.70-1.20 [facility] Comment on above: Performed By: #### L 504.2610, L100.0100, L500.4050 ####[facility] [address] [place], [address] ECRCL 49.32 ml/min Low 50-250 [facility] Comment on above: Performed By: #### L 504.2610, L100.0100, L500.4050 ####[facility] [address] [place], [address] GAP 11 Normal 5-15 [facility] Comment on above: Performed By: #### L 504.2610, L100.0100, L500.4050 ####[facility] [address] [place], [address] GFR/1.73 sq M.predicted among non-blacks MDRD (S/P/Bld) [Vol rate/Area] 52 mL/min/{1.73_m2} Low >60 [facility] Comment on above: Result Comment: mL/m in/1.73m2 CKD-EPI Creatinine Equation (2020) Performed By: #### L 504.2610, L100.0100, L500.4050 ####[facility] [address] [place], [address] Globulin (S) [Mass/Vol] 2.8 g/dL Normal 2.2-4.2 [facility] Comment on above: Performed By: #### L 504.2610, L100.0100, L500.4050 ####[facility] [address] [place], [address] Glucose [Mass/Vol] 106 mg/dL High 70-99 [facility] Comment on above: Performed By: #### L 504.2610, L100.0100, L500.4050 ####[facility] [address] [place], [address] Potassium [Moles/Vol] 4.2 mmol/L Normal 3.3-5.1 [facility] Comment on above: Performed By: #### L 504.2610, L100.0100, L500.4050 ####[facility] [address] [place], [address] Sodium [Moles/Vol] 138 mmol/L Normal 133-145 [facility] Comment on above: Performed By: #### L 504.2610, L100.0100, L500.4050 ####[facility] [address] [place], [address] T PROT 7.0 g/dL Normal 5.9-8.4 [facility] Comment on above: Performed By: #### L 504.2610, L100.0100, L500.4050 ####[facility] [address] [place], [address] Urea nitrogen [Mass/Vol] 22 mg/dL High 4-19 [facility] Comment on above: Performed By: #### L 504.2610, L100.0100, L500.4050 ####[facility] [address] [place], [address] LDHon 06-24-2024 LDH 170 U/L Normal 84-246 [facility] Comment on above: Order Comment: 1 Performed By: #### L 504.2610, L100.0100, L500.4050 ####[facility] [address] [place], [address] Oncology Visit Reporton 0 Oncology Visit Report [facility] [address] [place] [address] OFFICE VISIT Date of Service: 06/24/24 1119 MR#: [id number] Acct: [id number] Name: GEORGIA RO Rep #: [id number] : 1945 From: Konstantin Saha MD Age/Sex: 78/F Location: [facility] Status: Signed HPI Subjective Date of Service 06/24/24 Chief Complaint Lymphoma History of Present Illness 78-year-old female who presented with self palpated painless enlarged lymph nodes in the left axilla. In August 2021 she had a left axillary lymph node core biopsy that showed a polytypic (benign) lymph node with flow cytometry showing no clonality. With persistent symptoms and the patient reporting some discomfort in the left axilla she had a repeat biopsy of the left axilla in April 2023. 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 Flow cytometry confirmed the diagnosis. The patient has had no B symptoms and is unaware of similarly enlarged lymph nodes. June 24, 2023 PET/CT initial staging: IMPRESSION: 1. The increase in radiopharmaceutical concentration defined in the left axillary region most likely represents the site of histopathologically confirmed lymphoma. 2. No other quantitatively significant hypermetabolic abnormalities are encountered. [facility] Medical History PONV (postoperative nausea and vomiting) GI bleed Dark stools Left renal mass Abnormal CT of the abdomen Dupuytren contracture of right hand LLQ pain Obesity (BMI 30-39.9) Small lymphocytic lymphoma Wears glasses Wears partial dentures Wears dentures Seasonal allergies Non-smoker Sinusitis GERD (gastroesophageal reflux disease) Borderline type 2 diabetes mellitus Right hand pain Hyperglycemia Chronic sinusitis Shortness of breath Bilateral lower extremity edema Flu vaccine need Health care maintenance Tinnitus H/O tinnitus Chronic vertigo Cataracts, bilateral Back problem Actinic keratosis Cancer of skin of left ear Dupuytren's contracture Open cat bite of hand Cat bite of right hand with infection Restless leg syndrome Arthritis Vertigo High cholesterol Chronic hypertension Generalized osteoarthritis Surgical History History of lymph node excision History of left knee replacement History of colonoscopy History of lymph node biopsy History of cataract extraction H/O vaginal hysterectomy History of hysterectomy Cancer of skin of left ear Cat bite of right hand including fingers with infection Dupuytren contracture cancer removed S/P appendectomy S/P arthroscopy of knee History of total right knee replacement Family History Father Myocardial infarction Heart disease Hypertension Mother Breast cancer Grandmother Breast cancer Sister Lung cancer Seizures Social History Smoking Status: Never smoker alcohol intake: never substance use type: does not use caffeine: Yes what type of physical activity do you participate in: none seatbelt use: always do you feel safe at home: Yes additional social history: - Manuel SUN EXPOSURE: FREQUENTLY ROS Constitutional Constitutional: Reports systems reviewed and no addt'l complaints, except as documented; Denies anorexia, fever(s), night sweats or weight loss Eyes Eyes: Reports systems reviewed and no addt'l complaints, except as documented ENT HEENT: Reports systems reviewed and no addt'l complaints, except as documented; Denies mouth lesions Cardiovascular Cardiovascular: Reports systems reviewed and no addt'l complaints, except as documented; Denies chest pain with activity or edema Respiratory/Chest Respiratory/Chest: Reports systems reviewed and no addt'l complaints, except as documented; Denies cough or dyspnea on exertion Gastrointestinal Gastrointestinal: Reports systems reviewed and no addt'l complaints, except as documented; Denies change in bowel habits, hematochezia or melena Genitourinary Genitourinary: Reports systems reviewed and no addt'l complaints, except as documented Musculoskeletal Musculoskeletal: Reports systems reviewed and no addt'l complaints, except as documented, arthralgias and other Details: Occasional discomfort in the left axilla where the enlarged lymph nodes are Integumentary Integumentary: Reports rash; Denies new lesions Neurologic Neurologic: Reports systems reviewed and no addt'l complaints, except as documented; Denies focal weakness or paresthesias Psychiatric Psychiatric: Reports systems reviewed and no addt'l complaints, except as documented Endocrine Endocrino (more content not included)... [facility] Abdomen Limitedon 06-17-2024 Abdomen Limited [facility] [address] [place] [address] Abdomen Limited MR#: [id number] Acct: [id number] Name: GEORGIA RO Rep #: [id number] : 1945 F 78 From: Andre sagastume MD PCP: Dr. Eboni Katz MD Status: REG CLI Study: Abdomen Limited Date of Exam: 06/17/24 Exam# [id number] Ordering Dr: Ruby Parekh PROCEDURE: ABDOMEN LIMITED REASON FOR EXAM: Right upper quadrant pain. COMPARISON: Comparison is made with prior study dated February 24, 2024. FINDINGS: Liver: Diffusely echogenic suggesting fatty infiltration.. The liver measures 17 cm. Gallbladder: No stones, sludge, wall thickening or tenderness. Common bile duct: Normal measuring it measures 3 mm.. Pancreas: Visualized portions are sonographically unremarkable. Visualized portions of the right kidney are unremarkable. No right upper quadrant ascites. US/Abdomen Limited IMPRESSION: Mild hepatomegaly and fatty infiltration of the liver. Reading Location: [id number] CC: Dr. Eboni Katz MD; BHANU Muñoz 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: Signed Normal [facility] Gastroenterology Visit Repor ton 06-11-2024 Gastroenterology Visit Report [facility] [address] [place] [address] OFFICE VISIT Date of Service: 06/11/24 MR#: [id number] Acct: [id number] Name: GEORGIA RO ANN Rep #: [id number] : 1945 Provider: BHANU Muñoz Age/Sex: 78/F Location: [facility] Status: Signed Intake Vital Signs 04/19/24 10:28 Height 5 ft 6 in Weight: 211 lb BMI 34.0 BP 122/80 H Blood Pressure Location Lt brachial Position Sitting Respiration 16 Pulse 73 Pulse Source Monitor Temp 97.5 F L Temp Source Temporal Pulse Oximetry (%) 99 Oxygen Delivery Method room air Intake Visit Reasons: follow up Chief Complaint: heartburn Strategy Planning Consultant Required: No Is patient in pain?: Yes Allergies lisinopril (From Zestril) Adverse Reaction (Intermediate, Verified 04/19/24 10:22) Cough hydrocodone bitartrate (From Vicodin) Adverse Reaction (Mild, Verified 04/19/24 10:22) Itching Have you fallen in the past year?: No Nurse's Note: OV 06.11.24 Pt here for f/u and reports constipation, nausea, gas, bloating, abdominal pain, and trouble swallowing. Pt states she has to drink water with every meal or food will get stuck and she will pass out. Continues pantoprazole and benefiber daily. [facility] Medical History PONV (postoperative nausea and vomiting) GI bleed Dark stools Left renal mass Abnormal CT of the abdomen Dupuytren contracture of right hand LLQ pain Obesity (BMI 30-39.9) Small lymphocytic lymphoma Wears glasses Wears partial dentures Wears dentures Seasonal allergies Non-smoker Sinusitis GERD (gastroesophageal reflux disease) Borderline type 2 diabetes mellitus Right hand pain Hyperglycemia Chronic sinusitis Shortness of breath Bilateral lower extremity edema Flu vaccine need Health care maintenance Tinnitus H/O tinnitus Chronic vertigo Cataracts, bilateral Back problem Actinic keratosis Cancer of skin of left ear Dupuytren's contracture Open cat bite of hand Cat bite of right hand with infection Restless leg syndrome Arthritis Vertigo High cholesterol Chronic hypertension Generalized osteoarthritis Surgical History History of lymph node excision History of left knee replacement History of colonoscopy History of lymph node biopsy History of cataract extraction H/O vaginal hysterectomy History of hysterectomy Cancer of skin of left ear Cat bite of right hand including fingers with infection Dupuytren contracture cancer removed S/P appendectomy S/P arthroscopy of knee History of total right knee replacement Family History Father Myocardial infarction Heart disease Hypertension Mother Breast cancer Grandmother Breast cancer Sister Lung cancer Seizures Social History Smoking Status: Never smoker alcohol intake: never substance use type: does not use caffeine: Yes what type of physical activity do you participate in: none seatbelt use: always do you feel safe at home: Yes additional social history: - Manuel SUN EXPOSURE: FREQUENTLY HPI HPI Chief Complaint: heartburn Details: GEORGIA RO, is a 78 F who presents to the office today for f/u. BGI established 02.27.24 with complaints of burning esophageal/epigastric pain, nausea and black stools. Presented to the ED with these symptoms and was discharged on Pantoprazole 40 mg BID and Carafate 1 gram bid. Last EGD [address] abdomen pelvis 02.24.24; Findings which may be consistent with nonspecific gastritis.. Hyperdense left renal nodule consistent with hemorrhagic cyst unchanged since previous study No evidence for small bowel obstruction or other acute abnormality post hysterectomy and appendectomy EGD 03.29.24; - Z-line irregular, 39 cm from the incisors. Biopsied. - Small hiatal hernia. - A single gastric polyp. - Erythematous mucosa in the gastric body. Biopsied. - No gross lesions in the first portion of the duodenum. Biopsied. *2.25 office contacted due to black stools and continued pain. CBC wnl, KUB showing constipation, FOBT negative OV 2.; Pt continues to have daily burning epigastric pain. She endorses nausea, bloating and constipation. She continues with pantoprazole once daily. SHe does not feel like the PPI or Carafate has helped with her symptoms. She feels her symptoms may be related to her gallbladder. She is also having constipation with small hard bm daily. SHe takes Benefiber daily. ROS Const Constitutional: Positive for fatigue and weight change; No fever(s) ENT ENT: Positive for difficulty swallowing (more content not included)... Normal [facility] Stool Occult Blood iFOBon STOB Negative Normal [facility] Comment on above: Performed By: #### M 100.1559 #### [facility] [address] [place], [place], [id number] Abdomen Single Viewon 2024 Abdomen Single View [facility] [address] [place], [place] [id number] [phone] Abdomen Single View MR#: [id number] Acct: [id number] Name: GEORGIA RO Rep #: [id number] : 1945 F 78 From: Wilbert Lane MD PCP: Dr. Eboni Katz MD Status: REG CLI Study: Abdomen Single View Date of Exam: 06/02/24 Exam# [id number] Ordering Dr: Ruby Parekh EXAM: XR Abdomen, 1 View CLINICAL INDICATION: TECHNIQUE: Frontal supine view of the abdomen/pelvis. COMPARISON: No relevant prior studies available. FINDINGS: GASTROINTESTINAL TRACT: Fecal retention in the colon consistent with constipation. No dilation. BONES/JOINTS: Unremarkable. No acute fracture. RAD/Abdomen Single View IMPRESSION: Fecal retention in the colon consistent with constipation. Reading Location: [facility] CC: Dr. Eboni Katz MD; BAHNU Muñoz 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: Signed Normal [facility] CBC W/Diff, Automatedon 05-22 Absolute Lymph 2.37 X10 3/uL Normal 0.83-4.51 [facility] Comment on above: Performed By: #### L 500.4050, L100.0100, L501.6710, L101.9900 ####[facility] [address] [place], [address] Absolute Neut 3.4 X10 3/uL Normal 2.0-7.7 [facility] [facility] Comment on above: Performed By: #### L 500.4050, L100.0100, L501.6710, L101.9900 ####[facility] [address] [place], [address] Basophils/100 WBC (Bld) 0.9 % Normal 0-1 [facility] Comment on above: Performed By: #### L 500.4050, L100.0100, L501.6710, L101.9900 ####[facility] [address] [place], [address] Eosinophils/100 WBC (Bld) 2.0 % Normal 0-5 [facility] Comment on above: Performed By: #### L 500.4050, L100.0100, L501.6710, L101.9900 ####[facility] [address] [place], [address] Erythrocyte distribution width (RBC) [Ratio] 12.9 % Normal 11.6-14.6 [facility] Comment on above: Performed By: #### L 500.4050, L100.0100, L501.6710, L101.9900 ####[facility] [address] [place], [address] Hematocrit (Bld) [Volume fraction] 40.4 % Normal 37-47 [facility] Comment on above: Performed By: #### L 500.4050, L100.0100, L501.6710, L101.9900 ####[facility] [address] [place], [address] Hemoglobin (Bld) [Mass/Vol] 13.1 g/dL Normal 12.0-15.0 [facility] Comment on above: Performed By: #### L 500.4050, L100.0100, L501.6710, L101.9900 ####[facility] [address] [place], [address] IG% 0.800 Normal 0.0-0.9 [facility] Comment on above: Result Comment: IG% - Immature Granulocytes (promyelocytes, myelocytes and metamyelocytes) > 1% indicates that a LEFT SHIFT is Present. Performed By: #### L 500.4050, L100.0100, L501.6710, L101.9900 ####[facility] [address] [place], [address] Lymphocytes/100 WBC (Bld) 36.1 % Normal 19-41 [facility] Comment on above: Performed By: #### L 500.4050, L100.0100, L501.6710, L101.9900 ####[facility] [address] [place], [address] MCH (RBC) [Entitic mass] 29.2 pg Normal 27.0-32.0 [facility] Comment on above: Performed By: #### L 500.4050, L100.0100, L501.6710, L101.9900 ####[facility] [address] [place], [address] MCHC (RBC) [Mass/Vol] 32.4 g/dL Normal 32-36 [facility] Comment on above: Performed By: #### L 500.4050, L100.0100, L501.6710, L101.9900 ####[facility] [address] [place], [address] MCV (RBC) [Entitic vol] 90.2 fL Normal 81-99 [facility] Comment on above: Performed By: #### L 500.4050, L100.0100, L501.6710, L101.9900 ####[facility] [address] [place], [address] Monocytes/100 WBC (Bld) 8.2 % Normal 0-10 [facility] Comment on above: Performed By: #### L 500.4050, L100.0100, L501.6710, L101.9900 ####[facility] [address] [place], [address] Neutrophils/100 WBC (Bld) 52.0 % Normal 47-70 [facility] Comment on above: Performed By: #### L 500.4050, L100.0100, L501.6710, L101.9900 ####[facility] [address] [place], [address] Nucleated RBC (Bld) [#/Vol] 0 10*3/uL Normal 0-5 [facility] Comment on above: Performed By: #### L 500.4050, L100.0100, L501.6710, L101.9900 ####[facility] [address] [place], [address] Platelet mean volume (Bld) [Entitic vol] 10.8 fL Normal 6.2-12.0 [facility] Comment on above: Performed By: #### L 500.4050, L100.0100, L501.6710, L101.9900 ####[facility] [address] [place], [address] Platelets (Bld) [#/Vol] 232 10*3/uL Normal 150-450 [facility] Comment on above: Performed By: #### L 500.4050, L100.0100, L501.6710, L101.9900 ####[facility] [address] [place], [address] RBC (Bld) [#/Vol] 4.48 10*6/uL Normal 4.2-5.4 [facility] Comment on above: Performed By: #### L 500.4050, L100.0100, L501.6710, L101.9900 ####[facility] [address] [place], [address] RDW SD 42.5 fl Normal 35.1-43.9 [facility] Comment on above: Performed By: #### L 500.4050, L100.0100, L501.6710, L101.9900 ####[facility] [address] [place], [address] WBC (Bld) [#/Vol] 6.6 10*3/uL Normal 4.4-11.0 [facility] Comment on above: Performed By: #### L 500.4050, L100.0100, L501.6710, L101.9900 ####[facility] [address] [place], [address] CRPon 06-02-2024 C-REACTIVE PROT < 2.90 Normal 0.0-3.0 [facility] Comment on above: Result Comment: C-Re active Protein (CRP) provides useful information for the diagnosis, therapy and monitoring of inflammatory processes and associated diseases. For the evaluation of Relative Risk for Cardiovascular Disease, a High Sensitivity CRP (HSCRP) should be ordered. Performed By: #### L 500.4050, L100.0100, L501.6710, L101.9900 ####[facility] [address] [place], [address] Comprehensive Metabolic Prof ilon 06-02-2024 Albumin [Mass/Vol] 3.3 g/dL Normal 3.2-5.0 [facility] Comment on above: Performed By: #### L 500.4050, L100.0100, L501.6710, L101.9900 ####[facility] [address] [place], [address] Albumin/Globulin [Mass ratio] 0.9 {ratio} Normal 0.9-2.4 [facility] Comment on above: Performed By: #### L 500.4050, L100.0100, L501.6710, L101.9900 ####[facility] [address] [place], [address] ALK P 89 U/L Normal 45-117 [facility] Comment on above: Performed By: #### L 500.4050, L100.0100, L501.6710, L101.9900 ####[facility] [address] [place], [address] ALT [Catalytic activity/Vol] 20 U/L Normal 13-56 [facility] Comment on above: Performed By: #### L 500.4050, L100.0100, L501.6710, L101.9900 ####[facility] [address] [place], [address] AST [Catalytic activity/Vol] 17 U/L Normal 15-37 [facility] Comment on above: Performed By: #### L 500.4050, L100.0100, L501.6710, L101.9900 ####[facility] [address] [place], [address] Bilirubin [Mass/Vol] 0.60 mg/dL Normal 0.20-1.00 [facility] Comment on above: Result Comment: For patients on eltrombopag therapy, use of Dimension [place] TBIL is not recommended. Performed By: #### L 500.4050, L100.0100, L501.6710, L101.9900 ####[facility] [address] [place], [address] BUN/CRE 25.3 RATIO High 10-20 [facility] Comment on above: Performed By: #### L 500.4050, L100.0100, L501.6710, L101.9900 ####[facility] [address] [place], [address] CA,Total 9.5 mg/dL Normal 8.5-10.1 [facility] Comment on above: Performed By: #### L 500.4050, L100.0100, L501.6710, L101.9900 ####[facility] [address] [place], [address] Chloride [Moles/Vol] 103 mmol/L Normal 98-107 [facility] Comment on above: Performed By: #### L 500.4050, L100.0100, L501.6710, L101.9900 ####[facility] [address] [place], [address] CO2 [Moles/Vol] 29.0 mmol/L Normal 21.0-32.0 [facility] Comment on above: Performed By: #### L 500.4050, L100.0100, L501.6710, L101.9900 ####[facility] [address] [place], [address] Creatinine [Mass/Vol] 0.95 mg/dL Normal 0.55-1.02 [facility] Comment on above: Result Comment: The validity of the calculated GFR GFRAA in patients over 70 years has not been determined. Clinical correlation is essential. Performed By: #### L 500.4050, L100.0100, L501.6710, L101.9900 ####[facility] [address] [place], [address] EST GFR - AA 73 mL/min Normal >60 [facility] Comment on above: Result Comment: Afri can Tanzanian GFR Calc Performed By: #### L 500.4050, L100.0100, L501.6710, L101.9900 ####[facility] [address] [place], [address] GAP 6 Normal 5-15 [facility] Comment on above: Performed By: #### L 500.4050, L100.0100, L501.6710, L101.9900 ####[facility] [address] [place], [address] GFR/1.73 sq M.predicted among non-blacks MDRD (S/P/Bld) [Vol rate/Area] 61 mL/min/{1.73_m2} Normal >60 [facility] Comment on above: Result Comment: Non- GFR Calc Performed By: #### L 500.4050, L100.0100, L501.6710, L101.9900 ####[facility] [address] [place], [address] Globulin (S) [Mass/Vol] 3.7 g/dL Normal 2.2-4.2 [facility] Comment on above: Performed By: #### L 500.4050, L100.0100, L501.6710, L101.9900 ####[facility] [address] [place], [address] Glucose [Mass/Vol] 129 mg/dL High 74-106 [facility] Comment on above: Result Comment: Fast ing Glucose result greater than or equal to 126 mg/dL suggests DIABETES MELLITUS per A.D.A. criteria. Performed By: #### L 500.4050, L100.0100, L501.6710, L101.9900 ####[facility] [address] [place], [address] Potassium [Moles/Vol] 3.7 mmol/L Normal 3.5-5.1 [facility] Comment on above: Performed By: #### L 500.4050, L100.0100, L501.6710, L101.9900 ####[facility] [address] [place], [address] Sodium [Moles/Vol] 139 mmol/L Normal 136-145 [facility] Comment on above: Performed By: #### L 500.4050, L100.0100, L501.6710, L101.9900 ####[facility] [address] [place], [address] T PROT 7.0 g/dL Normal 6.4-8.2 [facility] Comment on above: Performed By: #### L 500.4050, L100.0100, L501.6710, L101.9900 ####[facility] [address] [place], [address] Urea nitrogen [Mass/Vol] 24 mg/dL High 7-18 [facility] Comment on above: Performed By: #### L 500.4050, L100.0100, L501.6710, L101.9900 ####[facility] [address] [place], [address] Erythrocyte Sed Rateon 06-02 SED RATE 18 mm/hr Normal 0-30 [facility] Comment on above: Performed By: #### L 500.4050, L100.0100, L501.6710, L101.9900 ####[facility] [address] [place], [address] CBC W/Diff, Automatedon 03-23-2023 Absolute Lymph 1.95 X10 3/uL Normal 0.83-4.51 [facility] Comment on above: Performed By: #### L 100.0100, L500.4050, L501.9985 ####[facility] [address] [place], [address] Absolute Neut 4.0 X10 3/uL Normal 2.0-7.7 [facility] Comment on above: Performed By: #### L 100.0100, L500.4050, L501.9985 ####[facility] [address] [place], [address] Basophils/100 WBC (Bld) 1.0 % Normal 0-1 [facility] Comment on above: Performed By: #### L 100.0100, L500.4050, L501.9985 ####[facility] [address] [place], [address] Eosinophils/100 WBC (Bld) 1.0 % Normal 0-5 [facility] Comment on above: Performed By: #### L 100.0100, L500.4050, L501.9985 ####[facility] [address] [place], [address] Erythrocyte distribution width (RBC) [Ratio] 13.2 % Normal 11.6-14.6 [facility] Comment on above: Performed By: #### L 100.0100, L500.4050, L501.9985 ####[facility] [address] [place], [address] Hematocrit (Bld) [Volume fraction] 40.9 % Normal 37-47 [facility] Comment on above: Performed By: #### L 100.0100, L500.4050, L501.9985 ####[facility] [address] [place], [address] Hemoglobin (Bld) [Mass/Vol] 13.5 g/dL Normal 12.0-15.0 [facility] Comment on above: Performed By: #### L 100.0100, L500.4050, L501.9985 ####[facility] [address] [place], [address] IG% 0.700 Normal 0.0-0.9 [facility] Comment on above: Result Comment: IG% - Immature Granulocytes (promyelocytes, myelocytes and metamyelocytes) > 1% indicates that a LEFT SHIFT is Present. Performed By: #### L 100.0100, L500.4050, L501.9985 ####[facility] [address] [place], [address] Lymphocytes/100 WBC (Bld) 28.6 % Normal 19-41 [facility] Comment on above: Performed By: #### L 100.0100, L500.4050, L501.9985 ####[facility] [address] [place], [address] MCH (RBC) [Entitic mass] 30.4 pg Normal 27.0-32.0 [facility] Comment on above: Performed By: #### L 100.0100, L500.4050, L501.9985 ####[facility] [address] [place], [address] MCHC (RBC) [Mass/Vol] 33.0 g/dL Normal 32-36 [facility] Comment on above: Performed By: #### L 100.0100, L500.4050, L501.9985 ####[facility] [address] [place], [address] MCV (RBC) [Entitic vol] 92.1 fL Normal 81-99 [facility] Comment on above: Performed By: #### L 100.0100, L500.4050, L501.9985 ####[facility] [address] [place], [address] Monocytes/100 WBC (Bld) 9.4 % Normal 0-10 [facility] Comment on above: Performed By: #### L 100.0100, L500.4050, L501.9985 ####[facility] [address] [place], [address] Neutrophils/100 WBC (Bld) 59.3 % Normal 47-70 [facility] Comment on above: Performed By: #### L 100.0100, L500.4050, L501.9985 ####[facility] [address] [place], [address] Nucleated RBC (Bld) [#/Vol] 0 10*3/uL Normal 0-5 [facility] Comment on above: Performed By: #### L 100.0100, L500.4050, L501.9985 ####[facility] [address] [place], [address] Platelet mean volume (Bld) [Entitic vol] 10.9 fL Normal 6.2-12.0 [facility] Comment on above: Performed By: #### L 100.0100, L500.4050, L501.9985 ####[facility] [address] [place], [address] Platelets (Bld) [#/Vol] 243 10*3/uL Normal 150-450 [facility] Comment on above: Performed By: #### L 100.0100, L500.4050, L501.9985 ####[facility] [address] [place], [address] RBC (Bld) [#/Vol] 4.44 10*6/uL Normal 4.2-5.4 [facility] Comment on above: Performed By: #### L 100.0100, L500.4050, L501.9985 ####[facility] [address] [place], [address] RDW SD 44.9 fl High 35.1-43.9 [facility] Comment on above: Performed By: #### L 100.0100, L500.4050, L501.9985 ####[facility] [address] [place], [address] WBC (Bld) [#/Vol] 6.8 10*3/uL Normal 4.4-11.0 [facility] Comment on above: Performed By: #### L 100.0100, L500.4050, L501.9985 ####[facility] [address] [place], [address] Comprehensive Metabolic [facility] 04-19-2024 Albumin [Mass/Vol] 3.5 g/dL Normal 3.2-5.0 [facility] Comment on above: Performed By: #### L 100.0100, L500.4050, L501.9985 ####[facility] [address] [place], [address] Albumin/Globulin [Mass ratio] 1.0 {ratio} Normal 0.9-2.4 [facility] Comment on above: Performed By: #### L 100.0100, L500.4050, L501.9985 ####[facility] [address] [place], [address] ALK P 89 U/L Normal 45-117 [facility] Comment on above: Performed By: #### L 100.0100, L500.4050, L501.9985 ####[facility] [address] [place], [address] ALT [Catalytic activity/Vol] 21 U/L Normal 13-56 [facility] Comment on above: Performed By: #### L 100.0100, L500.4050, L501.9985 ####[facility] [address] [place], [address] AST [Catalytic activity/Vol] 15 U/L Normal 15-37 [facility] Comment on above: Performed By: #### L 100.0100, L500.4050, L501.9985 ####[facility] [address] [place], [address] Bilirubin [Mass/Vol] 0.70 mg/dL Normal 0.20-1.00 [facility] Comment on above: Result Comment: For patients on eltrombopag therapy, use of Dimension [place] TBIL is not recommended. Performed By: #### L 100.0100, L500.4050, L501.9985 ####[facility] [address] [place], [address] BUN/CRE 21.1 RATIO High 10-20 [facility] Comment on above: Performed By: #### L 100.0100, L500.4050, L501.9985 ####[facility] [address] [place], [address] CA,Total 9.8 mg/dL Normal 8.5-10.1 [facility] Comment on above: Performed By: #### L 100.0100, L500.4050, L501.9985 ####[facility] [address] [place], [address] Chloride [Moles/Vol] 102 mmol/L Normal 98-107 [facility] Comment on above: Performed By: #### L 100.0100, L500.4050, L501.9985 ####[facility] [address] [place], [address] CO2 [Moles/Vol] 29.0 mmol/L Normal 21.0-32.0 [facility] Comment on above: Performed By: #### L 100.0100, L500.4050, L501.9985 ####[facility] [address] [place], [address] Creatinine [Mass/Vol] 1.00 mg/dL Normal 0.55-1.02 [facility] Comment on above: Result Comment: The validity of the calculated GFR GFRAA in patients over 70 years has not been determined. Clinical correlation is essential. Performed By: #### L 100.0100, L500.4050, L501.9985 ####[facility] [address] [place], [address] EST GFR - AA 69 mL/min Normal >60 [facility] Comment on above: Result Comment: Afri can Tanzanian GFR Calc Performed By: #### L 100.0100, L500.4050, L501.9985 ####[facility] [address] [place], [address] GAP 8 Normal 5-15 [facility] Comment on above: Performed By: #### L 100.0100, L500.4050, L501.9985 ####[facility] [address] [place], [address] GFR/1.73 sq M.predicted among non-blacks MDRD (S/P/Bld) [Vol rate/Area] 57 mL/min/{1.73_m2} Low >60 [facility] Comment on above: Result Comment: Non- GFR Calc Performed By: #### L 100.0100, L500.4050, L501.9985 ####[facility] [address] [place], [address] Globulin (S) [Mass/Vol] 3.6 g/dL Normal 2.2-4.2 [facility] Comment on above: Performed By: #### L 100.0100, L500.4050, L501.9985 ####[facility] [address] [place], [address] Glucose [Mass/Vol] 103 mg/dL Normal 74-106 [facility] Comment on above: Result Comment: Fast ing Glucose result from 100 to 125 mg/dL suggests IMPAIRED HOMEOSTASIS per A.D.A. criteria. Performed By: #### L 100.0100, L500.4050, L501.9985 ####[facility] [address] [place], [address] Potassium [Moles/Vol] 4.3 mmol/L Normal 3.5-5.1 [facility] Comment on above: Performed By: #### L 100.0100, L500.4050, L501.9985 ####[facility] [address] [place], [address] Sodium [Moles/Vol] 138 mmol/L Normal 136-145 [facility] Comment on above: Performed By: #### L 100.0100, L500.4050, L501.9985 ####[facility] [address] [place], [address] T PROT 7.1 g/dL Normal 6.4-8.2 [facility] Comment on above: Performed By: #### L 100.0100, L500.4050, L501.9985 ####[facility] [address] [place], [address] Urea nitrogen [Mass/Vol] 21 mg/dL High 7-18 [facility] Comment on above: Performed By: #### L 100.0100, L500.4050, L501.9985 ####[facility] [address] [place], [address] Hemoglobin A1con 04-19-2024 HbA1c (Bld) [Mass fraction] 5.9 % High 3.8-5.6 [facility] Comment on above: Result Comment: Norm al < 5.7 % Prediabetic 5.7 - 6.4 % Diabetic >or= 6.5 % Please note range changes. Performed By: #### L 100.0100, L500.4050, L501.9985 ####[facility] [address] [place], [address] Internal Medicine Office Vis itolauren 04-19-2024 Internal Medicine Office Visit [facility] [address] [place] [address] [place] [address] OFFICE VISIT Date of Service: 04/19/24 MR#: [id number] Acct: [id number] Name: GEORGIA RO Rep #: [id number] : 1945 Provider: Dr. Eboni garcia MD Age/Sex: 78/F Location: [facility] Status: Signed Intake Vital Signs 01/01/24 11:20 03/29/24 07:16 04/19/24 10:28 Height 5 ft 6 in 5 ft 6 in 5 ft 6 in Weight: 211 lb BMI 34.0 BP 122/80 H Blood Pressure Location Lt brachial Position Sitting Respiration 16 Pulse 73 Pulse Source Monitor Temp 97.5 F L Temp Source Temporal Pulse Oximetry (%) 99 Oxygen Delivery Method room air Intake Visit Reasons: fu Chief Complaint: Follow-up chronic conditions. Weight. Strategy Planning Consultant Required: No Is patient in pain?: No Allergies lisinopril (From Zestril) Adverse Reaction (Intermediate, Verified 04/19/24 10:22) Cough hydrocodone bitartrate (From Vicodin) Adverse Reaction (Mild, Verified 04/19/24 10:22) Itching Medications ???Medication ???Instructions ???Recorded ???Confirmed ???Type multivitamin with iron 1 tab PO DAILY 03/31/13 04/19/24 History biotin 2,500 mcg capsule 2,500 mcg PO ONCE 07/15/17 04/19/24 History acetaminophen 325 mg tablet 650 mg (2 x 325 mg) PO Q4H PRN PRN 05/21/23 04/19/24 Rx Pain Or Fever #0 tabs amlodipine 5 mg tablet 7.5 mg (1.5 x 5 mg) PO DAILY 3 08/22/23 04/19/24 Rx months #135 tabs hydrochlorothiazide 25 mg tablet See Rx Instructions .Route 08/22/23 04/19/24 Rx .COMPLEX #90 tabs ropinirole 0.5 mg tablet 0.5 mg PO TID #360 tabs 08/22/23 04/19/24 Rx celecoxib 200 mg capsule (Celebrex) 200 mg PO DAILY PRN pain #90 caps 09/16/23 04/19/24 Rx losartan 100 mg tablet 100 mg PO DAILY 3 months #90 tabs 11/19/23 04/19/24 Rx potassium chloride 20 mEq 20 meq PO BID #180 tabs 01/26/24 04/19/24 Rx tablet,extended release pantoprazole 40 mg tablet,delayed 40 mg PO BID 3 months #180 tabs 02/19/24 04/19/24 Rx release vibegron 75 mg tablet (Gemtesa) 75 mg PO DAILY 03/24/24 04/19/24 History Have you fallen in the past year?: Yes (04/09/24 minor knee injury) [facility] Medical History PONV (postoperative nausea and vomiting) GI bleed Dark stools Left renal mass Abnormal CT of the abdomen Dupuytren contracture of right hand LLQ pain Obesity (BMI 30-39.9) Small lymphocytic lymphoma Wears glasses Wears partial dentures Wears dentures Seasonal allergies Non-smoker Sinusitis GERD (gastroesophageal reflux disease) Borderline type 2 diabetes mellitus Right hand pain Hyperglycemia Chronic sinusitis Shortness of breath Bilateral lower extremity edema Flu vaccine need Health care maintenance Tinnitus H/O tinnitus Chronic vertigo Cataracts, bilateral Back problem Actinic keratosis Cancer of skin of left ear Dupuytren's contracture Open cat bite of hand Cat bite of right hand with infection Restless leg syndrome Arthritis Vertigo High cholesterol Chronic hypertension Generalized osteoarthritis Surgical History History of lymph node excision History of left knee replacement History of colonoscopy History of lymph node biopsy History of cataract extraction H/O vaginal hysterectomy History of hysterectomy Cancer of skin of left ear Cat bite of right hand including fingers with infection Dupuytren contracture cancer removed S/P appendectomy S/P arthroscopy of knee History of total right knee replacement Family History Father Myocardial infarction Heart disease Hypertension Mother Breast cancer Grandmother Breast cancer Sister Lung cancer Seizures Social History Smoking Status: Never smoker alcohol intake: never substance use type: does not use caffeine: Yes what type of physical activity do you participate in: none seatbelt use: always do you feel safe at home: Yes additional social history: - Manuel SUN EXPOSURE: FREQUENTLY HPI HPI Chief Complaint: Follow-up chronic conditions. Weight. Details: GEORGIA RO, is a 78 F who presents to the office today for follow-up of her chronic conditions. Also has some concerns. Since her last visit, she was referred to GI due to concern for GI bleed. Had an EGD done which showed gastritis/esophagitis. Currently on Protonix twice daily which she has continued to take. No further concerns with dark or bloody stools. Also reports concerns about her weight. Reports difficulty with weight loss. Has tried some dietary and lifestyle changes without any significant weight loss history of borderline diabetes, she is ope (more content not included)... Normal [facility] EGD Reporton 03-29-2024 EGD Report [facility] Medical Records Department [address] [place] [address] EGD Report MR#: [id number] Acct: [id number] Name: GEORGIA RO Rep #: [id number] : 1945 78 From: Moustapha Stanley DO PCP: Dr. Eboni Katz MD Status:REG [facility] Patient Name: Georgia Ro Procedure Date: 03/29/2024 8:48 AM Date of : 1945 Age: 78 Procedure: Upper GI endoscopy Indications: Epigastric abdominal pain, Functional Dyspepsia Providers: Moustapha Stanley DO Referring MD: Eboni Katz MD Medicines: Monitored Anesthesia Care Patient Profile: This is a 78 year old female. Refer to note in patient chart for documentation of history and physical. Patient has symptoms of chronic epigastric abdominal pain, chronic dyspepsia and acute nausea. Complications: No immediate complications. Procedure: Pre-Anesthesia Assessment: - Prior to the procedure, a History and Physical was performed, and patient medications and allergies were reviewed. The patient is competent. The risks and benefits of the procedure and the sedation options and risks were discussed with the patient. All questions were answered and informed consent was obtained. Patient identification and proposed procedure were verified by the physician in the pre-procedure area. Mental Status Examination: alert and oriented. Airway Examination: normal oropharyngeal airway and neck mobility. Respiratory Examination: clear to auscultation. CV Examination: normal. Prophylactic Antibiotics: The patient does not require prophylactic antibiotics. Prior Anticoagulants: The patient has taken no anticoagulant or antiplatelet agents except for NSAID medication. ASA Grade Assessment: II - A patient with mild systemic disease. After reviewing the risks and benefits, the patient was deemed in satisfactory condition to undergo the procedure. The anesthesia plan was to use monitored anesthesia care (MAC). Immediately prior to administration of medications, the patient was re-assessed for adequacy to receive sedatives. The heart rate, respiratory rate, oxygen saturations, blood pressure, adequacy of pulmonary ventilation, and response to care were monitored throughout the procedure. The physical status of the patient was re-assessed after the procedure. After obtaining informed consent, the endoscope was passed under direct vision. Throughout the procedure, the patient's blood pressure, pulse, and oxygen saturations were monitored continuously. The gastroscope was introduced through the mouth, and advanced to the second part of duodenum. The upper GI endoscopy was accomplished without difficulty. The patient tolerated the procedure well. Scope In: 8:47:57 AM Scope Out: 8:55:14 AM Total Procedure Duration Time 0 hours 7 minutes 17 seconds Findings: The Z-line was irregular and was found 39 cm from the incisors. Biopsies were taken with a cold forceps for histology. Verification of patient identification for the specimen was done. Estimated blood loss was minimal. A small hiatal hernia was present. A single 4 mm hyperplastic polyp with no bleeding and no stigmata of recent bleeding was found in the gastric body. Patchy mildly erythematous mucosa without bleeding was found in the gastric body. Biopsies were taken with a cold forceps for histology. Verification of patient identification for the specimen was done. Estimated blood loss was minimal. Biopsies were taken with a cold forceps for Helicobacter pylori testing. Verification of patient identification for the specimen was done. Estimated blood loss was minimal. No gross lesions were noted in the first portion of the duodenum. Biopsies were taken with a cold forceps for histology. Verification of patient identification for the specimen was done. Estimated blood loss was minimal. Impression: - Z-line irregular, 39 cm from the incisors. Biopsied. - Small hiatal hernia. - A single gastric polyp. - Erythematous mucosa in the gastric body. Biopsied. - No gross lesions in the first portion of the duodenum. Biopsied. Recommendation: - Discharge patient to home. - Resume previous diet. - Continue present medications. - Await pathology results. Procedure Code(s): --- Professional --- 88066, Esophagogastroduodenosc opy, flexible, transoral; with biopsy, single or multiple CPT copyright 2021 [employer]. All rights reserved. The codes documented in this report are preliminary and upon conference specialist review may be revised to meet current compliance requirements. Moustapha Stanley DO 03/29/2024 9:02:24 AM This report has been signed electronically. Number of Addenda: 0 Note Initiated On: 03/29/2024 8:48 AM 03/29/2402 Date Moustapha Rodriguez Signature: Date _ (more content not included)... Normal [facility] H Pylori (initial)on 024 H Pylori (initial) --- Patient Age/Sex Location Account Attending Physician GEORGIA RO 78/F EN [id number] Moustapha Stanley, Specimen: [id number] Received: 03/29/24 Status: VIVEK Jones Num: [id number] Spec Type: IMMUNO Subm Dr: Moustapha Stanley DO PHYSICIAN INSTITUTION [place] [address] SPECIMEN INFORMATION: Tissue Source: B- Gastric body biopsy Clinical Info: Acute bleeding Specimen Number: [id number] CPT code: 53595 METHODOLOGY: Deparaffinized sections of prefer/formalin-fixed tissue or PAP/DQ stained slides are incubated with monoclonal/polyclonal antibodies/oligonucleot rebeka probes. Localization is made via biotin free immunoperoxidase method. Appropriate controls are performed and reacted as expected. Results on target cell population are indicated in the following table: RESULTS: ANTIBODY / CLONE RESULT Block B H Pylori (polyclonal) negative These tests were developed and their performance characteristics determined by [facility]. They may not have been cleared or approved by the U.S. Food and Drug Administration. The FDA has determined that such clearance or approval is not necessary. The above immunohistochemical/tomasz Kelby markers are ordered and reviewed by the Pathologist. INTERPRETATION: B. Gastric body, biopsy: Negative for Helicobacter pylori organisms. AM. 03/30/2024 Signed (signature on file) Dr. Ricardo Sargent DO 03/30/24 1156 Normal [facility] Comment on above: Performed By: #### P H.PYLORI ####[facility] [address] [facility] [place], [place], [address] MR/POSTOP.Dotty 03-29-2024 MR/POSTOP.[facility] Medical Records Department [address] [facility] [place] [address] Anesthesia Postop Eval I 03/29/24904 MR#: [id number] Acct: [id number] Name: GEORGIA RO Rep #: [id number] : 1945 78 From: Kavin Bowers PCP: Dr. Eboni Katz MD Status:REG SDC Y Race: C Location: [place] [address] Anesthesia: Postop Eval I Current Vital Signs Temperature: 97 F Pulse Rate: 74 Blood Pressure: 99/61 Respiratory Rate: 16 Pulse Ox: 94 Oxygen Delivery Method: Room Air Assessment Airway patent: Yes Spontaneous unlabored respirations: Yes Mental status: Asleep nausea: No Vomiting: No Anesthesia Complication: No Fluid Hydration Crystalloid volume administer (ml): 30 Total IV fluid infused: 30 Progress Note Anesthesia document: Postop Eval 1 completed: Yes 03/29/24905 Date Kavin Lepe Signature: Date CC: Signed Normal [facility] MR/[id number] 03-29-2024 MR/POSTOPAN2 [facility] Medical Records Department [address] [place] [address] Anesthesia Postop Eval II 03/29/24918 MR#: [id number] Acct: [id number] Name: GEORGIA RO Rep #: [id number] : 1945 78 From: Bud Mata MD PCP: Dr. Eboni Katz MD Status:REG SDC Y Race: C Location: [address] Anesthesia Postop Eval I Sum Postop Eval Completion status Anesthesia document: Postop Eval 1 completed: Yes Anesthesia Postop Eval I Summary Anesthesia Postop Eval I Summary: Anesthesia Postop Eval I: Assessment Summary Airway patent Yes 03/29/24 09:06 [email or web address] Spontaneous unlabored Yes 03/29/24 09:06 [email or web address] respirations Mental status Asleep 03/29/24 09:06 [email or web address] nausea No 03/29/24 09:06 [email or web address] Vomiting No 03/29/24 09:06 [email or web address] Anesthesia Postop Eval I: Fluid Summary Crystalloid volume administer 30 03/29/24 09:06 [email or web address] (ml) Colloids volume administered ( ml) Blood Product volume administered (ml) Total IV fluid infused 30 03/29/24 09:06 [email or web address] Anesthesia Postop Eval I: Summary Notes Anesthesia Complication No 03/29/24 09:06 [email or web address] Anesthesia Complication Comment: Post-operative progress note Anesthesia: Postop Eval II Evaluation Mental status: Awake Pain Level: 0 nausea: No Vomiting: No 03/29/24918 Date Bud Mata MD Cosigner Signature: Date CC: Signed Normal [facility] Special Stain Group Ion 12- Special Stain Group I ----- Patient Age/Sex Location Account Attending Physician GEORGIA RO 78/F RAINE [id number] Moustapha Stanley DO Specimen: [id number] Received: 03/29/24 Status: VIVEK Jones Num: [id number] Spec Type: EGD BIOPSY Silviano Dr: Moustapha Stanley DO HEADER OPERATION: EGD with biopsy PRE-OP DIAGNOSIS: Acute bleeding TISSUE SUBMITTED: A- Duodenal biopsy, B- Gastric body biopsy, C- Distal esophagus biopsy MICROSCOPIC DIAGNOSIS A. Duodenum, biopsy: No pathologic change. B. Gastric body, biopsy: Minimal chronic inflammation. See comment. C. Distal esophagus, biopsy: Gastroesophageal junction mucosa with mild chronic inflammation and focal acute inflammation. Focal changes of reflux. No evidence of goblet cell metaplasia. See comment. AM. 03/30/2024 COMMENT B. The results of immunohistochemistry for Helicobacter pylori will be reported separately ([id number]). C. Alcian blue/PAS stain with matched control supports the above diagnosis. MICROSCOPIC DESCRIPTION Slides are reviewed. GROSS DESCRIPTION A. Received in fixative is one container labeled with the patient's name and designated Duodenal biopsy. The specimen consists of two irregular fragments of light amin soft tissue that in aggregate measure 0.6 x 0.5 x 0.1 cm. The specimen is totally submitted in one cassette. B. Received in fixative is one container labeled with the patient's name and designated Gastric body biopsy. The specimen consists of two irregular fragments of light amin soft tissue that in aggregate measure 1.0 x 0.5 x 0.1 cm. The specimen is totally submitted in one cassette. C. Received in fixative is one container labeled with the patient's name and designated Distal esophagus biopsy. The specimen consists of multiple irregular fragments of light amin soft tissue that in aggregate measure 1.0 x 0.7 x 0.1 cm. The specimen is totally submitted in one cassette. AM. 03/29/2024 TC:3 Patient Age/Sex Location Account Attending Physician GEORGIA RO 78/F EN [id number] Moustapha Stanley DO CPT:78105g5,21171 Patient Age/Sex Location Account Attending Physician GEORGIA RO 78/F EN [id number] Moustapha Stanley DO Signed (signature on file) Dr. Ricardo Sargent DO 03/30/24 1158 Normal [facility] Comment on above: Performed By: #### P SSI ####[facility] [address] [place], [address] Calprotectin, Stoolon [address] 174 ug/g Abnormal 0-120 [facility] Comment on above: Result Comment: Conc entration Interpretation Follow-Up < 5 - 50 ug/g Normal None >50 -120 ug/g Borderline Re-evaluate in 4-6 weeks >120 ug/g Abnormal Repeat as clinically indicated Performed at: [facility] [id number] Stove Fitter: Hattie Hill MD, Phone: [phone] Performed By: #### M 100.7900, L7000.0700, L100.0100, M100.0605 ####[facility] [address] [place], [address] CBC W/Diff, Automatedon 02-19 Absolute Lymph 2.01 X10 3/uL Normal 0.83-4.51 [facility] Comment on above: Performed By: #### M 100.7900, L7000.0700, L100.0100, M100.0605 ####[facility] [address] [place], [address] Absolute Neut 4.4 X10 3/uL Normal 2.0-7.7 [facility] Comment on above: Performed By: #### M 100.7900, L7000.0700, L100.0100, M100.0605 ####[facility] [address] [place], [address] Basophils/100 WBC (Bld) 0.9 % Normal 0-1 [facility] Comment on above: Performed By: #### M 100.7900, L7000.0700, L100.0100, M100.0605 ####[facility] [address] [place], [address] Eosinophils/100 WBC (Bld) 2.0 % Normal 0-5 [facility] Comment on above: Performed By: #### M 100.7900, L7000.0700, L100.0100, M100.0605 ####[facility] [address] [place], [address] Erythrocyte distribution width (RBC) [Ratio] 13.7 % Normal 11.6-14.6 [facility] Comment on above: Performed By: #### M 100.7900, L7000.0700, L100.0100, M100.0605 ####[facility] [address] [place], [address] Hematocrit (Bld) [Volume fraction] 40.7 % Normal 37-47 [facility] Comment on above: Performed By: #### M 100.7900, L7000.0700, L100.0100, M100.0605 ####[facility] [address] [place], [address] Hemoglobin (Bld) [Mass/Vol] 13.0 g/dL Normal 12.0-15.0 [facility] Comment on above: Performed By: #### M 100.7900, L7000.0700, L100.0100, M100.0605 ####[facility] [address] [place], [address] IG% 1.900 High 0.0-0.9 [facility] Comment on above: Result Comment: IG% - Immature Granulocytes (promyelocytes, myelocytes and metamyelocytes) > 1% indicates that a LEFT SHIFT is Present. Performed By: #### M 100.7900, L7000.0700, L100.0100, M100.0605 ####[facility] [address] [place], [address] Lymphocytes/100 WBC (Bld) 26.8 % Normal 19-41 [facility] Comment on above: Performed By: #### M 100.7900, L7000.0700, L100.0100, M100.0605 ####[facility] [address] [place], [address] MCH (RBC) [Entitic mass] 29.5 pg Normal 27.0-32.0 [facility] Comment on above: Performed By: #### M 100.7900, L7000.0700, L100.0100, M100.0605 ####[facility] [address] [place], [address] MCHC (RBC) [Mass/Vol] 31.9 g/dL Low 32-36 [facility] Comment on above: Performed By: #### M 100.7900, L7000.0700, L100.0100, M100.0605 ####[facility] [address] [place], [address] MCV (RBC) [Entitic vol] 92.5 fL Normal 81-99 [facility] Comment on above: Performed By: #### M 100.7900, L7000.0700, L100.0100, M100.0605 ####[facility] [address] [place], [address] Monocytes/100 WBC (Bld) 9.9 % Normal 0-10 [facility] Comment on above: Performed By: #### M 100.7900, L7000.0700, L100.0100, M100.0605 ####[facility] [address] [place], [address] Neutrophils/100 WBC (Bld) 58.5 % Normal 47-70 [facility] Comment on above: Performed By: #### M 100.7900, L7000.0700, L100.0100, M100.0605 ####[facility] [address] [place], [address] Nucleated RBC (Bld) [#/Vol] 0 10*3/uL Normal 0-5 [facility] Comment on above: Performed By: #### M 100.7900, L7000.0700, L100.0100, M100.0605 ####[facility] [address] [place], [address] Platelet mean volume (Bld) [Entitic vol] 9.6 fL Normal 6.2-12.0 [facility] Comment on above: Performed By: #### M 100.7900, L7000.0700, L100.0100, M100.0605 ####[facility] [address] [place], [address] Platelets (Bld) [#/Vol] 324 10*3/uL Normal 150-450 [facility] Comment on above: Performed By: #### M 100.7900, L7000.0700, L100.0100, M100.0605 ####[facility] [address] [place], [address] RBC (Bld) [#/Vol] 4.40 10*6/uL Normal 4.2-5.4 [facility] Comment on above: Performed By: #### M 100.7900, L7000.0700, L100.0100, M100.0605 ####[facility] [address] [place], [address] RDW SD 46.6 fl High 35.1-43.9 [facility] Comment on above: Performed By: #### M 100.7900, L7000.0700, L100.0100, M100.0605 ####[facility] [address] [place], [address] WBC (Bld) [#/Vol] 7.5 10*3/uL Normal 4.4-11.0 [facility] Comment on above: Performed By: #### M 100.7900, L7000.0700, L100.0100, M100.0605 ####[facility] [address] [place], [address] Stool Lactoferrin/WBCon 02-19 WBCST Normal Reference Ran ge = Negative Fecal WBC Lactoferrin Negative: No Fecal WBC Lactoferrin present Normal [facility] Comment on above: Performed By: #### M 100.7900, L7000.0700, L100.0100, M100.0605 ####[facility] [address] [place], [address] Stool Occult Blood iFOBon STOB Normal Reference Ran ge = Negative Immunochemical Fecal Occult Blood (iFOBT) method. Hemoccult Stl Ql IA Limitation: Menstrual bleeding, constipation bleeding, bleeding hemorrhoids, and urinary bleeding conditions may interfere with test. Occult Blood Negative Normal [facility] Comment on above: Performed By: #### M 100.7900, L7000.0700, L100.0100, M100.0605 ####[facility] [address] [place], [address] Gastroenterology Visit Repor ton 02-27-2024 Gastroenterology Visit Report [facility] Gastroenterology [address] [place] [address] OFFICE VISIT Date of Service: 02/27/24 MR#: [id number] Acct: [id number] Name: GEORGIA RO Rep #: [id number] : 1945 Provider: BHANU Muñoz Age/Sex: 78/F Location: [facility] Status: Signed Intake Vital Signs 01/01/24 11:20 02/24/24 15:40 Height 5 ft 6 in 5 ft 6 in Intake Visit Reasons: Blood in stool Chief Complaint: +FOBT Allergies lisinopril (From Zestril) Adverse Reaction (Intermediate, Verified 02/24/24 15:40) Cough hydrocodone bitartrate (From Vicodin) Adverse Reaction (Mild, Verified 02/24/24 15:40) Itching Have you fallen in the past year?: Yes Nurse's Note: OV 02.27.24 Pt here for f/u with c/o abdominal pain, diarrhea, positive blood occult and nausea. Colonoscopy 2022 and last EGD was many years ago. Takes pantoprazole daily and sucralfate daily for two weeks. [facility] Medical History (Updated 02/24/24 @ 18:[address] Alex Hendricks, DO) GI bleed Dark stools Left renal mass Abnormal CT of the abdomen Dupuytren contracture of right hand LLQ pain Obesity (BMI 30-39.9) Small lymphocytic lymphoma Wears glasses Wears partial dentures Wears dentures Seasonal allergies Non-smoker Sinusitis GERD (gastroesophageal reflux disease) Borderline type 2 diabetes mellitus Right hand pain Hyperglycemia Chronic sinusitis Shortness of breath Bilateral lower extremity edema Flu vaccine need Health care maintenance Tinnitus H/O tinnitus Chronic vertigo Cataracts, bilateral Back problem Actinic keratosis Cancer of skin of left ear Dupuytren's contracture Open cat bite of hand Cat bite of right hand with infection Restless leg syndrome Arthritis Vertigo High cholesterol Chronic hypertension Generalized osteoarthritis Surgical History History of left knee replacement History of colonoscopy History of lymph node biopsy History of cataract extraction H/O vaginal hysterectomy History of hysterectomy Cancer of skin of left ear Cat bite of right hand including fingers with infection Dupuytren contracture cancer removed S/P appendectomy S/P arthroscopy of knee History of total right knee replacement Family History Father Myocardial infarction Heart disease Hypertension Mother Breast cancer Grandmother Breast cancer Sister Lung cancer Seizures Social History Smoking Status: Never smoker alcohol intake: never substance use type: does not use caffeine: Yes what type of physical activity do you participate in: none seatbelt use: always do you feel safe at home: Yes additional social history: Nelly Jackson SUN EXPOSURE: FREQUENTLY HPI HPI Chief Complaint: +FOBT Details: GEORGIA RO, is a 78 F who presents to the office today for establishment with I. For a month now pt has been having burning esophageal/epigastric pain, nausea and black stools. She saw her PCP who did stool tests which were positive for blood 3x. She has had GERD for a long time and has had an EGD w/ Dr. Wren over 10 years ago which she believes was normal. She presented to the ED 02.24.24 with the same symptoms and was subsequently discharged home with instruction for f/u with GI. She has been on pantoprazole 40 mg BID and Carafate 1 gram daily for 2 weeks now. SHe is no longer having black stools but continues with pain. Her stools are soft whcih is not typical for her. She denies abdominal pain, constipation, or diarrhea, CT abdomen pelvis 02.24.24; Findings which may be consistent with nonspecific gastritis.. Hyperdense left renal nodule consistent with hemorrhagic cyst unchanged since previous study No evidence for small bowel obstruction or other acute abnormality post hysterectomy and appendectomy ROS Const Constitutional: No fatigue, fever(s) or weight change ENT ENT: Positive for difficulty swallowing Gastro GI: Positive for diarrhea, heartburn, difficulty swallowing and nausea/dyspepsia; No abdominal pain, belching, bloating, change in bowel habits, change in stool character, coffee ground emesis, constipation, cramping, feeling full early, excessive flatus, incontinent of stools, Vomiting blood/hematemesis, Blood in stool, loose stools, Black,tarry stools, pain with swallowing, vomiting or other Musc Musculoskeletal: Positive for muscle cramps, Arthritis and restless legs; No joint pain Skin Skin: No yellowing of the eye or itchy eyes Neuro Neurology: Positive for dizziness and restless legs Psych Psychiatric: No anxiety and No depression Endo Endocrine: No fatigue or weight change Aller/Imm Allergy/Immunologic: No itchy eyes Rodolfo/Lymp Hematologic/Lymph (more content not included)... Normal [facility] 12 Lead EKGon 02-24-2024 12 Lead EKG [facility] [address] [place] [address] 12 Lead EKG 02/24/24 1643 MR#: [id number] Acct: [id number] Name: GEORGIA RO ANN Rep #: [id number] : 1945 78 From: Manuel Roe MD Attending Dr: Status: DEP ER Ordering Dr: Alex Hendricks DO Date: 02/24/24 Location: ED Sex: F C Admitted: Test Reason : GENRAL Blood Pressure : */* mmHG Vent. Rate : 78 BPM Atrial Rate : 78 BPM P-R Int : 148 ms QRS Dur : 74 ms QT Int : 364 ms P-R-T Axes : 32 -1 9 degrees QTcB Int : 414 ms Normal sinus rhythm Normal ECG Confirmed by Manuel Roe ([id number]), editor greeting card RORO FAITH ([id number]) on 02/25/2024 1:06:54 PM Referred By: Confirmed By: Manuel Roe 02/25/24 1306 Date Manuel Roe MD CC: Dr. Eboni Katz MD; Dr. Alex Hendricks DO Signed Normal [facility] Abdomen/Pelvis without Conto n 02-24-2024 Abdomen/Pelvis without Cont [facility] Imaging Services [address] [place] [address] Abdomen/Pelvis without Cont MR#: [id number] Acct: [id number] Name: GEORGIA RO ANN Rep #: [id number] : 1945 F 78 From: Gatito Ramirez MD PCP: Dr. Eboni Katz MD Status: REG ER Study: Abdomen/Pelvis without Cont Date of Exam: 09/11 Exam# [id number] Ordering Dr: [place] [id number] STUDY: CT ABDOMEN AND PELVIS WITHOUT CONTRAST REASON FOR EXAM: Female, 78 years old. epigastric abdominal pain RADIATION DOSAGE (If Supplied By Facility): CTDIvol = ( 14.43 ) mGy, DLP = ( 728.03 ) mGycm TECHNIQUE: Transaxial images were obtained from the dome of the diaphragm to the symphysis pubis without oral contrast, and without intravenous contrast. Sagittal and coronal images were reconstructed. Individualized dose optimization techniques were used for this CT. COMPARISON: December 04, 2023 FINDINGS: The visualized lung bases are unremarkable. The visualized portions of the heart are within normal limits. Normal liver. Normal gallbladder and extrahepatic biliary system. Normal spleen. Normal pancreas. Normal bilateral adrenal glands. Normal right kidney. Small hyperattenuated cortical nodule left kidney measuring 1.37 x 1.12 cm likely hemorrhagic cyst Concentric thickening of the bronson of the gastric fundus which may be consistent with nonspecific gastritis. Normal small intestine. Diverticular disease of the descending and sigmoid colon without evidence for acute diverticulitis. Appendix not visualized consistent with appendectomy Mild atherosclerotic change of the aorta without evidence for aneurysm. Normal inferior vena cava. Normal retroperitoneum. Normal urinary bladder. Uterus not visualized status post hysterectomy Normal abdominal wall. Lumbar spine demonstrates degenerative change. Grade 1 spondylolisthesis at L5-S1 CT/Abdomen/Pelvis without Cont IMPRESSION: Findings which may be consistent with nonspecific gastritis.. Hyperdense left renal nodule consistent with hemorrhagic cyst unchanged since previous study No evidence for small bowel obstruction or other acute abnormality Status post hysterectomy and appendectomy Electronically Signed: Gatito Ramirez MD at 17:36 EST , CC: Dr. Eboni Katz MD; Dr. Alex Hendricks DO 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: Signed Normal [facility] BNP,B-Type NATRIURETIC PEPTI Cathryn 02-24-2024 Natriuretic peptide B (Bld) [Mass/Vol] 24.4 pg/mL Normal 0-100 [facility] Comment on above: Performed By: #### L 501.4020, L300.3900, L503.6620, L501.2450, L300.4310 ####[facility] [address] [place], [address] CBC W/Diff, Automatedon 11-0 5-2024 Absolute Lymph 1.25 X10 3/uL Normal 0.83-4.51 [facility] Comment on above: Performed By: #### L 100.0100, L500.4050 ####[facility] [address] [place], [address] Absolute Neut 5.5 X10 3/uL Normal 2.0-7.7 [facility] Comment on above: Performed By: #### L 100.0100, L500.4050 ####[facility] [address] [place], [address] Basophils/100 WBC (Bld) 0.6 % Normal 0-1 [facility] Comment on above: Performed By: #### L 100.0100, L500.4050 ####[facility] [address] [place], [address] Eosinophils/100 WBC (Bld) 4.8 % Normal 0-5 [facility] Comment on above: Performed By: #### L 100.0100, L500.4050 ####[facility] [address] [place], [address] Erythrocyte distribution width (RBC) [Ratio] 14.2 % Normal 11.6-14.6 [facility] Comment on above: Performed By: #### L 100.0100, L500.4050 ####[facility] [address] [place], [address] Hematocrit (Bld) [Volume fraction] 38.6 % Normal 37-47 [facility] Comment on above: Performed By: #### L 100.0100, L500.4050 ####[facility] [address] [place], [address] Hemoglobin (Bld) [Mass/Vol] 13.2 g/dL Normal 12.0-15.0 [facility] Comment on above: Performed By: #### L 100.0100, L500.4050 ####[facility] [address] [place], [address] IG% 0.600 Normal 0.0-0.9 [facility] Comment on above: Result Comment: IG% - Immature Granulocytes (promyelocytes, myelocytes and metamyelocytes) > 1% indicates that a LEFT SHIFT is Present. Performed By: #### L 100.0100, L500.4050 ####[facility] [address] [place], [address] Lymphocytes/100 WBC (Bld) 15.4 % Low 19-41 [facility] Comment on above: Performed By: #### L 100.0100, L500.4050 ####[facility] [address] [place], [address] MCH (RBC) [Entitic mass] 31.1 pg Normal 27.0-32.0 [facility] Comment on above: Performed By: #### L 100.0100, L500.4050 ####[facility] [address] [place], [address] MCHC (RBC) [Mass/Vol] 34.2 g/dL Normal 32-36 [facility] Comment on above: Performed By: #### L 100.0100, L500.4050 ####[facility] [address] [place], [address] MCV (RBC) [Entitic vol] 91.0 fL Normal 81-99 [facility] Comment on above: Performed By: #### L 100.0100, L500.4050 ####[facility] [address] [place], [address] Monocytes/100 WBC (Bld) 11.5 % High 0-10 [facility] Comment on above: Performed By: #### L 100.0100, L500.4050 ####[facility] [address] [place], [address] Neutrophils/100 WBC (Bld) 67.1 % Normal 47-70 [facility] Comment on above: Performed By: #### L 100.0100, L500.4050 ####[facility] [address] [place], [address] Nucleated RBC (Bld) [#/Vol] 0 10*3/uL Normal 0-5 [facility] Comment on above: Performed By: #### L 100.0100, L500.4050 ####[facility] [address] [place], [address] Platelet mean volume (Bld) [Entitic vol] 10.8 fL Normal 6.2-12.0 [facility] Comment on above: Performed By: #### L 100.0100, L500.4050 ####[facility] [address] [place], [address] Platelets (Bld) [#/Vol] 220 10*3/uL Normal 150-450 [facility] Comment on above: Performed By: #### L 100.0100, L500.4050 ####[facility] [address] [place], [address] RBC (Bld) [#/Vol] 4.24 10*6/uL Normal 4.2-5.4 [facility] Comment on above: Performed By: #### L 100.0100, L500.4050 ####[facility] [address] [place], [address] RDW SD 47.6 fl High 35.1-43.9 [facility] Comment on above: Performed By: #### L 100.0100, L500.4050 ####[facility] [address] [place], [address] WBC (Bld) [#/Vol] 8.1 10*3/uL Normal 4.4-11.0 [facility] Comment on above: Performed By: #### L 100.0100, L500.4050 ####[facility] [address] [place], [place], [address] Chest 1 View (Portable)on Chest 1 View (Portable) [facility] Imaging Services [address] [place], [place] [address] Chest 1 View (Portable) MR#: [id number] Acct: [id number] Name: GEORGIA RO Rep #: [id number] : 1945 F 78 From: Gatito Ramirez MD PCP: Dr. Eboni Katz MD Status: REG ER Study: Chest 1 View (Portable) Date of Exam: 02/24/24 Exam# [id number] Ordering Dr: [place] [id number] STUDY: X-RAY CHEST REASON FOR EXAM: Female, 78 years old. SOB TECHNIQUE: AP portable COMPARISON: March 31, 2013 FINDINGS: The lungs are clear and expanded. There is no demonstrated pleural abnormality. Normal size heart. Normal mediastinum. There are small calcified left hilar nodes Normal visualized pulmonary arteries. Normal visualized aortic arch and descending thoracic aorta. Dorsal spine and shoulders demonstrates degenerative change. Normal visualized ribs, and clavicles There is no demonstrated abnormality of the visualized soft tissue structures of the upper abdomen. RAD/Chest 1 View (Portable) IMPRESSION: No acute cardiopulmonary pathology Electronically Signed: Gatito Ramirez MD at 17:30 EST , CC: Dr. Eboni Katz MD; Dr. Alex Hendricks DO 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: Signed Normal [facility] Comprehensive Metabolic Prof ilon 02-24-2024 Albumin [Mass/Vol] 3.3 g/dL Normal 3.2-5.0 [facility] Comment on above: Performed By: #### L 100.0100, L500.4050 ####[facility] [address] [place], [address] Albumin/Globulin [Mass ratio] 1.0 {ratio} Normal 0.9-2.4 [facility] Comment on above: Performed By: #### L 100.0100, L500.4050 ####[facility] [address] [place], [address] ALK P 185 U/L High 45-117 [facility] Comment on above: Performed By: #### L 100.0100, L500.4050 ####[facility] [address] [place], [address] ALT [Catalytic activity/Vol] 61 U/L High 13-56 [facility] Comment on above: Performed By: #### L 100.0100, L500.4050 ####[facility] [address] [place], [address] AST [Catalytic activity/Vol] 23 U/L Normal 15-37 [facility] Comment on above: Performed By: #### L 100.0100, L500.4050 ####[facility] [address] [place], [address] Bilirubin [Mass/Vol] 0.80 mg/dL Normal 0.20-1.00 [facility] Comment on above: Result Comment: For patients on eltrombopag therapy, use of Dimension [place] TBIL is not recommended. Performed By: #### L 100.0100, L500.4050 ####[facility] [address] [place], [address] BUN/CRE 22.6 RATIO High 10-20 [facility] Comment on above: Performed By: #### L 100.0100, L500.4050 ####[facility] [address] [place], [address] CA,Total 9.6 mg/dL Normal 8.5-10.1 [facility] Comment on above: Performed By: #### L 100.0100, L500.4050 ####[facility] [address] [place], [address] Chloride [Moles/Vol] 102 mmol/L Normal 98-107 [facility] Comment on above: Performed By: #### L 100.0100, L500.4050 ####[facility] [address] [place], [address] CO2 [Moles/Vol] 26.0 mmol/L Normal 21.0-32.0 [facility] Comment on above: Performed By: #### L 100.0100, L500.4050 ####[facility] [address] [place], [address] Creatinine [Mass/Vol] 1.55 mg/dL High 0.55-1.02 [facility] Comment on above: Result Comment: The validity of the calculated GFR GFRAA in patients over 70 years has not been determined. Clinical correlation is essential. Performed By: #### L 100.0100, L500.4050 ####[facility] [address] [place], [address] ECRCL 34.61 ml/min Normal [facility] Comment on above: Performed By: #### L 100.0100, L500.4050 ####[facility] [address] [place], [address] EST GFR - AA 42 mL/min Low >60 [facility] Comment on above: Result Comment: Afri can Tanzanian GFR Calc Performed By: #### L 100.0100, L500.4050 ####[facility] [address] [place], [address] GAP 7 Normal 5-15 [facility] Comment on above: Performed By: #### L 100.0100, L500.4050 ####[facility] [address] [place], [address] GFR/1.73 sq M.predicted among non-blacks MDRD (S/P/Bld) [Vol rate/Area] 34 mL/min/{1.73_m2} Low >60 [facility] Comment on above: Result Comment: Non- GFR Calc Performed By: #### L 100.0100, L500.4050 ####[facility] [address] [place], [address] Globulin (S) [Mass/Vol] 3.4 g/dL Normal 2.2-4.2 [facility] Comment on above: Performed By: #### L 100.0100, L500.4050 ####[facility] [address] [place], [address] Glucose [Mass/Vol] 126 mg/dL High 74-106 [facility] Comment on above: Result Comment: Fast ing Glucose result greater than or equal to 126 mg/dL suggests DIABETES MELLITUS per A.D.A. criteria. Performed By: #### L 100.0100, L500.4050 ####[facility] [address] [place], [address] Potassium [Moles/Vol] 4.5 mmol/L Normal 3.5-5.1 [facility] Comment on above: Performed By: #### L 100.0100, L500.4050 ####[facility] [address] [place], [address] Sodium [Moles/Vol] 135 mmol/L Low 136-145 [facility] Comment on above: Performed By: #### L 100.0100, L500.4050 ####[facility] [address] [place], [address] T PROT 6.7 g/dL Normal 6.4-8.2 [facility] Comment on above: Performed By: #### L 100.0100, L500.4050 ####[facility] [address] [place], [address] Urea nitrogen [Mass/Vol] 35 mg/dL High 7-18 [facility] Comment on above: Performed By: #### L 100.0100, L500.4050 ####[facility] [address] [place], [address] Emergency Department Summary on 02-24-2024 Emergency Department Summary [facility] Medical Records Department [address] [place] [address] Emergency Department Summary 02/24/24 MR#: [id number] Acct: [id number] Name: GEORGIA RO ANN Rep #: [id number] : 1945 78 From: Alex Hendricks DO PCP: Dr. Eboni Katz MD Status:DEP ER Location: ED HPI History of Present Illness Chief Complaint: GI Bleed [facility] Medical History GI bleed Dark stools Left renal mass Abnormal CT of the abdomen Dupuytren contracture of right hand LLQ pain Obesity (BMI 30-39.9) Small lymphocytic lymphoma Wears glasses Wears partial dentures Wears dentures Seasonal allergies Non-smoker Sinusitis GERD (gastroesophageal reflux disease) Borderline type 2 diabetes mellitus Right hand pain Hyperglycemia Chronic sinusitis Shortness of breath Bilateral lower extremity edema Flu vaccine need Health care maintenance Tinnitus H/O tinnitus Chronic vertigo Cataracts, bilateral Back problem Actinic keratosis Cancer of skin of left ear Dupuytren's contracture Open cat bite of hand Cat bite of right hand with infection Restless leg syndrome Arthritis Vertigo High cholesterol Chronic hypertension Generalized osteoarthritis Home Medications ???Medication ???Instructions ???Recorded ???Last Taken ???Type multivitamin with iron 1 tab PO DAILY 03/31/13 05/20/23 History biotin 2,500 mcg capsule 2,500 mcg PO ONCE 07/15/17 05/20/23 History aspirin 81 mg capsule 81 mg PO DAILY 09/18/21 05/14/23 History acetaminophen 325 mg tablet 650 mg (2 x 325 mg) PO Q4H PRN PRN 05/21/23 Unknown Rx Pain Or Fever #0 tabs amlodipine 5 mg tablet 7.5 mg (1.5 x 5 mg) PO DAILY 3 08/22/23 Unknown Rx months #135 tabs hydrochlorothiazide 25 mg tablet See Rx Instructions .Route 08/22/23 Unknown Rx .COMPLEX #90 tabs ropinirole 0.5 mg tablet 0.5 mg PO TID #360 tabs 08/22/23 Unknown Rx celecoxib 200 mg capsule (Celebrex) 200 mg PO DAILY PRN pain #90 caps 09/16/23 Unknown Rx oxybutynin chloride 10 mg 10 mg PO DAILY #90 TABLETS 10/15/23 Unknown Rx tablet,extended release 24 hr losartan 100 mg tablet 100 mg PO DAILY 3 months #90 tabs 11/19/23 Unknown Rx potassium chloride 20 mEq 20 meq PO BID #180 tabs 01/26/24 Unknown Rx tablet,extended release pantoprazole 40 mg tablet,delayed 40 mg PO BID 3 months #180 tabs 02/19/24 Unknown Rx release sucralfate 1 gram tablet (Carafate) 1 g PO QACHS 2 weeks #56 tabs 02/19/24 Unknown Rx Allergy/AdvReac Type Severity Reaction Status Date / Time lisinopril (From Zestril) AdvReac Intermediate Cough Verified 02/24/24 15:40 hydrocodone bitartrate (From AdvReac Mild Itching Verified 02/24/24 15:40 Vicodin) Family History Father Myocardial infarction Heart disease Hypertension Mother Breast cancer Grandmother Breast cancer Sister Lung cancer Seizures Surgical History History of left knee replacement History of colonoscopy History of lymph node biopsy History of cataract extraction H/O vaginal hysterectomy History of hysterectomy Cancer of skin of left ear Cat bite of right hand including fingers with infection Dupuytren contracture cancer removed S/P appendectomy S/P arthroscopy of knee History of total right knee replacement Social History Smoking Status: Never smoker alcohol intake: never substance use type: does not use caffeine: Yes what type of physical activity do you participate in: none seatbelt use: always do you feel safe at home: Yes additional social history: [facility] SUN EXPOSURE: FREQUENTLY EXAM Physical Exam Const Vital Signs: 02/24/24 15:40 02/24/24 15:43 02/24/24 16:43 Temperature 98.5 F 98.9 F 98 F Temperature Source Oral Oral Oral Pulse Rate 94 94 77 Respiratory Rate 18 18 17 Blood Pressure 135/72 H 135/72 H 141/77 H Blood Pressure Mean 93 93 98 Pulse Ox 97 97 92 Oxygen Delivery Method Room Air Room Air Room Air 02/24/24 17:00 Temperature 98 F Temperature Source Oral Pulse Rate 74 Respiratory Rate 18 Blood Pressure 138/97 H Blood Pressure Mean 110 Pulse Ox 93 Oxygen Delivery Method Room Air MDM MDM MDM Narrative Medical decision making narrative: HISTORY OF PRESENT ILLNESS: 78-year-old female presents concern for shortness of breath, abdominal burning and dark stool for 3 weeks. Noted to have a positive Hemoccult test as an outpatient. Denies chest pain, fever, vomiting. Denies cough. She denies blood thinners. The patient denies recent surgery in the last 4 weeks or immobilization in the last 3 days, denies previous diagnosis of DVT (more content not included)... Normal [facility] L501.4020on 02-24-2024 TROPONIN-I HS 4 pg/mL Normal 3.0-54.0 [facility] Comment on above: Order Comment: 'TROP ' Serial specimen #1, #2 or #3: 1 Result Comment: Kaushik alexandra Note: New Test Units and Gender Specific Reference Ranges. For more information see Policy Stat Procedure [place] High Sensitivity Troponin (TNIH) and attachments. Performed By: #### L 501.4020, L300.3900, L503.6620, L501.2450, L300.4310 ####[facility] [address] [place], [address] Lipaseon 02-24-2024 Lipase [Catalytic activity/Vol] 36 U/L Normal 13-75 [facility] Comment on above: Order Comment: 'TROP ' Serial specimen #1, #2 or #3: 1 Result Comment: Kaushik alexandra note: LIPASE revised reference range effective 22. New Lipase methodology. Expected to produce lower values than the previous assay method. NEW Reference Range: 13 - 75 U/L Performed By: #### L 501.4020, L300.3900, L503.6620, L501.2450, L300.4310 ####[facility] [address] [place], [address] Partial Thromboplast Timeon 02-24-2024 aPTT Coag (Bld) [Time] 26.8 s Normal 24.1-36.2 [facility] Comment on above: Performed By: #### L 501.4020, L300.3900, L503.6620, L501.2450, L300.4310 ####[facility] [address] [place], [address] Prothrombin Time w/INRon INR Coag (PPP) [Relative time] 1.1 {INR} Normal [facility] Comment on above: Performed By: #### L 501.4020, L300.3900, L503.6620, L501.2450, L300.4310 ####[facility] [address] [place], [address] PT Coag (PPP) [Time] 14.0 s Normal 11.7-14.9 [facility] Comment on above: Performed By: #### L 501.4020, L300.3900, L503.6620, L501.2450, L300.4310 ####[facility] [address] [place], [address] Urinalysis, Completeon 02-23 BACTERIA RARE Normal None Seen [facility] Comment on above: Order Comment: CLEAN CATCH Performed By: #### L 400.0001 ####[facility] [address] [place], [address] CAST,HYALINE 0-5 SEEN Normal 0-5 [facility] Comment on above: Order Comment: CLEAN CATCH Performed By: #### L 400.0001 ####[facility] [address] [place], [address] EPI,SQUAMOUS 0-5 SEEN Normal 5-10 [facility] Comment on above: Order Comment: CLEAN CATCH Performed By: #### L 400.0001 ####[facility] [address] [place], [address] Mucus Ql (Urine sed) 0 SEEN Normal [facility] Comment on above: Order Comment: CLEAN CATCH Performed By: #### L 400.0001 ####[facility] [address] [place], [address] RBC 0 SEEN Normal 0-5 [facility] Comment on above: Order Comment: CLEAN CATCH Performed By: #### L 400.0001 ####[facility] [address] [place], [address] WBC 0 SEEN Normal 0-5 [facility] Comment on above: Order Comment: CLEAN CATCH Performed By: #### L 400.0001 ####[facility] [address] [place], [address] Stool Occult Blood iFOBon STOB Normal Reference Ran ge = Negative Immunochemical Fecal Occult Blood (iFOBT) method. Hemoccult Stl Ql IA Limitation: Menstrual bleeding, constipation bleeding, bleeding hemorrhoids, and urinary bleeding conditions may interfere with test. Occult Blood A Positive A OCCULT BLOOD POSITIVE Normal [facility] Comment on above: Performed By: #### M 100.7900 #### [facility] [address] [place], [address] CBC W/Diff, Automatedon 11-0 -2023 Absolute Lymph 0.66 X10 3/uL Low 0.83-4.51 [facility] Comment on above: Performed By: #### L 500.4050, L100.0100 ####[facility] [address] [place], [address] Absolute Neut 6.0 X10 3/uL Normal 2.0-7.7 [facility] Comment on above: Performed By: #### L 500.4050, L100.0100 ####[facility] [address] [place], [address] Basophils/100 WBC (Bld) 0.5 % Normal 0-1 [facility] Comment on above: Performed By: #### L 500.4050, L100.0100 ####[facility] [address] [place], [address] Eosinophils/100 WBC (Bld) 3.3 % Normal 0-5 [facility] Comment on above: Performed By: #### L 500.4050, L100.0100 ####[facility] [address] [place], [address] Erythrocyte distribution width (RBC) [Ratio] 14.2 % Normal 11.6-14.6 [facility] Comment on above: Performed By: #### L 500.4050, L100.0100 ####[facility] [address] [place], [address] Hematocrit (Bld) [Volume fraction] 42.0 % Normal 37-47 [facility] Comment on above: Performed By: #### L 500.4050, L100.0100 ####[facility] [address] [place], [address] Hemoglobin (Bld) [Mass/Vol] 13.3 g/dL Normal 12.0-15.0 [facility] Comment on above: Performed By: #### L 500.4050, L100.0100 ####[facility] [address] [place], [address] IG% 0.800 Normal 0.0-0.9 [facility] Comment on above: Result Comment: IG% - Immature Granulocytes (promyelocytes, myelocytes and metamyelocytes) > 1% indicates that a LEFT SHIFT is Present. Performed By: #### L 500.4050, L100.0100 ####[facility] [address] [place], [address] Lymphocytes/100 WBC (Bld) 8.6 % Low 19-41 [facility] Comment on above: Performed By: #### L 500.4050, L100.0100 ####[facility] [address] [place], [address] MCH (RBC) [Entitic mass] 30.0 pg Normal 27.0-32.0 [facility] Comment on above: Performed By: #### L 500.4050, L100.0100 ####[facility] [address] [place], [address] MCHC (RBC) [Mass/Vol] 31.7 g/dL Low 32-36 [facility] Comment on above: Performed By: #### L 500.4050, L100.0100 ####[facility] [address] [place], [address] MCV (RBC) [Entitic vol] 94.6 fL Normal 81-99 [facility] Comment on above: Performed By: #### L 500.4050, L100.0100 ####[facility] [address] [place], [address] Monocytes/100 WBC (Bld) 7.7 % Normal 0-10 [facility] Comment on above: Performed By: #### L 500.4050, L100.0100 ####[facility] [address] [place], [address] Neutrophils/100 WBC (Bld) 79.1 % High 47-70 [facility] Comment on above: Performed By: #### L 500.4050, L100.0100 ####[facility] [address] [place], [address] Nucleated RBC (Bld) [#/Vol] 0 10*3/uL Normal 0-5 [facility] Comment on above: Performed By: #### L 500.4050, L100.0100 ####[facility] [address] [place], [address] Platelet mean volume (Bld) [Entitic vol] 11.5 fL Normal 6.2-12.0 [facility] Comment on above: Performed By: #### L 500.4050, L100.0100 ####[facility] [address] [place], [address] Platelets (Bld) [#/Vol] 164 10*3/uL Normal 150-450 [facility] Comment on above: Performed By: #### L 500.4050, L100.0100 ####[facility] [address] [place], [address] RBC (Bld) [#/Vol] 4.44 10*6/uL Normal 4.2-5.4 [facility] Comment on above: Performed By: #### L 500.4050, L100.0100 ####[facility] [address] [place], [address] RDW SD 49.4 fl High 35.1-43.9 [facility] Comment on above: Performed By: #### L 500.4050, L100.0100 ####[facility] [address] [place], [address] WBC (Bld) [#/Vol] 7.6 10*3/uL Normal 4.4-11.0 [facility] Comment on above: Performed By: #### L 500.4050, L100.0100 ####[facility] [address] [place], [address] Comprehensive Metabolic Prof ilon 02-20-2024 Albumin [Mass/Vol] 3.3 g/dL Normal 3.2-5.0 [facility] Comment on above: Performed By: #### L 500.4050, L100.0100 ####[facility] [address] [place], [address] Albumin/Globulin [Mass ratio] 0.9 {ratio} Normal 0.9-2.4 [facility] Comment on above: Performed By: #### L 500.4050, L100.0100 ####[facility] [address] [place], [address] ALK P 104 U/L Normal 45-117 [facility] Comment on above: Performed By: #### L 500.4050, L100.0100 ####[facility] [address] [place], [address] ALT [Catalytic activity/Vol] 49 U/L Normal 13-56 [facility] Comment on above: Performed By: #### L 500.4050, L100.0100 ####[facility] [address] [place], [address] AST [Catalytic activity/Vol] 35 U/L Normal 15-37 [facility] Comment on above: Performed By: #### L 500.4050, L100.0100 ####[facility] [address] [place], [address] Bilirubin [Mass/Vol] 0.90 mg/dL Normal 0.20-1.00 [facility] Comment on above: Result Comment: For patients on eltrombopag therapy, use of Dimension [place] TBIL is not recommended. Performed By: #### L 500.4050, L100.0100 ####[facility] [address] [place], [address] BUN/CRE 18.4 RATIO Normal 10-20 [facility] Comment on above: Performed By: #### L 500.4050, L100.0100 ####[facility] [address] [place], [address] CA,Total 9.5 mg/dL Normal 8.5-10.1 [facility] Comment on above: Performed By: #### L 500.4050, L100.0100 ####[facility] [address] [place], [address] Chloride [Moles/Vol] 102 mmol/L Normal 98-107 [facility] Comment on above: Performed By: #### L 500.4050, L100.0100 ####[facility] [address] [place], [address] CO2 [Moles/Vol] 29.0 mmol/L Normal 21.0-32.0 [facility] Comment on above: Performed By: #### L 500.4050, L100.0100 ####[facility] [address] [place], [address] Creatinine [Mass/Vol] 1.03 mg/dL High 0.55-1.02 [facility] Comment on above: Result Comment: The validity of the calculated GFR GFRAA in patients over 70 years has not been determined. Clinical correlation is essential. Performed By: #### L 500.4050, L100.0100 ####[facility] [address] [place], [address] EST GFR - AA 67 mL/min Normal >60 [facility] Comment on above: Result Comment: Afri can Tanz[place] GFR Calc Performed By: #### L 500.4050, L100.0100 ####[facility] [address] [place], [address] GAP 5 Normal 5-15 [facility] Comment on above: Performed By: #### L 500.4050, L100.0100 ####[facility] [address] [place], [address] GFR/1.73 sq M.predicted among non-blacks MDRD (S/P/Bld) [Vol rate/Area] 55 mL/min/{1.73_m2} Low >60 [facility] Comment on above: Result Comment: Non- GFR Calc Performed By: #### L 500.4050, L100.0100 ####[facility] [address] [place], [address] Globulin (S) [Mass/Vol] 3.5 g/dL Normal 2.2-4.2 [facility] Comment on above: Performed By: #### L 500.4050, L100.0100 ####[facility] [address] [place], [address] Glucose [Mass/Vol] 126 mg/dL High 74-106 [facility] Comment on above: Result Comment: Fast ing Glucose result greater than or equal to 126 mg/dL suggests DIABETES MELLITUS per A.D.A. criteria. Performed By: #### L 500.4050, L100.0100 ####[facility] [address] [place], [address] Potassium [Moles/Vol] 4.4 mmol/L Normal 3.5-5.1 [facility] Comment on above: Performed By: #### L 500.4050, L100.0100 ####[facility] [address] [place], [address] Sodium [Moles/Vol] 135 mmol/L Low 136-145 [facility] Comment on above: Performed By: #### L 500.4050, L100.0100 ####[facility] [address] [place], [address] T PROT 6.8 g/dL Normal 6.4-8.2 [facility] Comment on above: Performed By: #### L 500.4050, L100.0100 ####[facility] [address] [place], [address] Urea nitrogen [Mass/Vol] 19 mg/dL High 7-18 [facility] Comment on above: Performed By: #### L 500.4050, L100.0100 ####[facility] [address] [place], [address] CBC W/Diff, Automatedon 12-20-2023 Absolute Lymph 1.99 X10 3/uL Normal 0.83-4.51 [facility] Comment on above: Performed By: #### L 500.4050, L504.2610, L100.0100 ####[facility] [address] [place], [address] Absolute Neut 3.3 X10 3/uL Normal 2.0-7.7 [facility] Comment on above: Performed By: #### L 500.4050, L504.2610, L100.0100 ####[facility] [address] [place], [address] Basophils/100 WBC (Bld) 0.8 % Normal 0-1 [facility] Comment on above: Performed By: #### L 500.4050, L504.2610, L100.0100 ####[facility] [address] [place], [address] Eosinophils/100 WBC (Bld) 1.5 % Normal 0-5 [facility] Comment on above: Performed By: #### L 500.4050, L504.2610, L100.0100 ####[facility] [address] [place], [address] Erythrocyte distribution width (RBC) [Ratio] 13.0 % Normal 11.6-14.6 [facility] Comment on above: Performed By: #### L 500.4050, L504.2610, L100.0100 ####[facility] [address] [place], [address] Hematocrit (Bld) [Volume fraction] 41.3 % Normal 37-47 [facility] Comment on above: Performed By: #### L 500.4050, L504.2610, L100.0100 ####[facility] [address] [place], [address] Hemoglobin (Bld) [Mass/Vol] 14.1 g/dL Normal 12.0-15.0 [facility] Comment on above: Performed By: #### L 500.4050, L504.2610, L100.0100 ####[facility] [address] [place], [address] IG% 0.500 Normal 0.0-0.9 [facility] Comment on above: Result Comment: IG% - Immature Granulocytes (promyelocytes, myelocytes and metamyelocytes) > 1% indicates that a LEFT SHIFT is Present. Performed By: #### L 500.4050, L504.2610, L100.0100 ####[facility] [address] [place], [address] Lymphocytes/100 WBC (Bld) 32.8 % Normal 19-41 [facility] Comment on above: Performed By: #### L 500.4050, L504.2610, L100.0100 ####[facility] [address] [place], [address] MCH (RBC) [Entitic mass] 30.3 pg Normal 27.0-32.0 [facility] Comment on above: Performed By: #### L 500.4050, L504.2610, L100.0100 ####[facility] [address] [place], [address] MCHC (RBC) [Mass/Vol] 34.1 g/dL Normal 32-36 [facility] Comment on above: Performed By: #### L 500.4050, L504.2610, L100.0100 ####[facility] [address] [place], [address] MCV (RBC) [Entitic vol] 88.6 fL Normal 81-99 [facility] Comment on above: Performed By: #### L 500.4050, L504.2610, L100.0100 ####[facility] [address] [place], [address] Monocytes/100 WBC (Bld) 9.6 % Normal 0-10 [facility] Comment on above: Performed By: #### L 500.4050, L504.2610, L100.0100 ####[facility] [address] [place], [address] Neutrophils/100 WBC (Bld) 54.8 % Normal 47-70 [facility] Comment on above: Performed By: #### L 500.4050, L504.2610, L100.0100 ####[facility] [address] [place], [address] Nucleated RBC (Bld) [#/Vol] 0 10*3/uL Normal 0-5 [facility] Comment on above: Performed By: #### L 500.4050, L504.2610, L100.0100 ####[facility] [address] [place], [address] Platelet mean volume (Bld) [Entitic vol] 10.3 fL Normal 6.2-12.0 [facility] Comment on above: Performed By: #### L 500.4050, L504.2610, L100.0100 ####[facility] [address] [place], [address] Platelets (Bld) [#/Vol] 205 10*3/uL Normal 150-450 [facility] Comment on above: Performed By: #### L 500.4050, L504.2610, L100.0100 ####[facility] [address] [place], [address] RBC (Bld) [#/Vol] 4.66 10*6/uL Normal 4.2-5.4 [facility] Comment on above: Performed By: #### L 500.4050, L504.2610, L100.0100 ####[facility] [address] [place], [address] RDW SD 42.3 fl Normal 35.1-43.9 [facility] Comment on above: Performed By: #### L 500.4050, L504.2610, L100.0100 ####[facility] [address] [place], [address] WBC (Bld) [#/Vol] 6.1 10*3/uL Normal 4.4-11.0 [facility] Comment on above: Performed By: #### L 500.4050, L504.2610, L100.0100 ####[facility] [address] [place], [address] Comprehensive Metabolic Prof ilon 01-01-2024 Albumin [Mass/Vol] 3.6 g/dL Normal 3.2-5.0 [facility] Comment on above: Order Comment: 1 Performed By: #### L 500.4050, L504.2610, L100.0100 ####[facility] [address] [place], [address] Albumin/Globulin [Mass ratio] 1.1 {ratio} Normal 0.9-2.4 [facility] Comment on above: Order Comment: 1 Performed By: #### L 500.4050, L504.2610, L100.0100 ####[facility] [address] [place], [address] ALK P 101 U/L Normal 45-117 [facility] Comment on above: Order Comment: 1 Performed By: #### L 500.4050, L504.2610, L100.0100 ####[facility] [address] [place], [address] ALT [Catalytic activity/Vol] 19 U/L Normal 13-56 [facility] Comment on above: Order Comment: 1 Performed By: #### L 500.4050, L504.2610, L100.0100 ####[facility] [address] [place], [address] AST [Catalytic activity/Vol] 21 U/L Normal 15-37 [facility] Comment on above: Order Comment: 1 Performed By: #### L 500.4050, L504.2610, L100.0100 ####[facility] [address] [place], [address] Bilirubin [Mass/Vol] 0.80 mg/dL Normal 0.20-1.00 [facility] Comment on above: Order Comment: 1 Result Comment: For patients on eltrombopag therapy, use of Dimension [place] TBIL is not recommended. Performed By: #### L 500.4050, L504.2610, L100.0100 ####[facility] [address] [place], [address] BUN/CRE 16.2 RATIO Normal 10-20 [facility] Comment on above: Order Comment: 1 Performed By: #### L 500.4050, L504.2610, L100.0100 ####[facility] [address] [place], [address] CA,Total 9.8 mg/dL Normal 8.5-10.1 [facility] Comment on above: Order Comment: 1 Performed By: #### L 500.4050, L504.2610, L100.0100 ####[facility] [address] [place], [address] Chloride [Moles/Vol] 104 mmol/L Normal 98-107 [facility] Comment on above: Order Comment: 1 Performed By: #### L 500.4050, L504.2610, L100.0100 ####[facility] [address] [place], [address] CO2 [Moles/Vol] 30.0 mmol/L Normal 21.0-32.0 [facility] Comment on above: Order Comment: 1 Performed By: #### L 500.4050, L504.2610, L100.0100 ####[facility] [address] [place], [address] Creatinine [Mass/Vol] 0.86 mg/dL Normal 0.55-1.02 [facility] Comment on above: Order Comment: 1 Result Comment: The validity of the calculated GFR GFRAA in patients over 70 years has not been determined. Clinical correlation is essential. Performed By: #### L 500.4050, L504.2610, L100.0100 ####[facility] [address] [place], [address] ECRCL 63.74 ml/min Normal [facility] Comment on above: Order Comment: 1 Performed By: #### L 500.4050, L504.2610, L100.0100 ####[facility] [address] [place], [address] EST GFR - AA 82 mL/min Normal >60 [facility] Comment on above: Order Comment: 1 Result Comment: Afri can Tanzanian GFR Calc Performed By: #### L 500.4050, L504.2610, L100.0100 ####[facility] [address] [place], [address] GAP 5 Normal 5-15 [facility] Comment on above: Order Comment: 1 Performed By: #### L 500.4050, L504.2610, L100.0100 ####[facility] [address] [place], [address] GFR/1.73 sq M.predicted among non-blacks MDRD (S/P/Bld) [Vol rate/Area] 68 mL/min/{1.73_m2} Normal >60 [facility] Comment on above: Order Comment: 1 Result Comment: Non- GFR Calc Performed By: #### L 500.4050, L504.2610, L100.0100 ####[facility] [address] [place], [address] Globulin (S) [Mass/Vol] 3.4 g/dL Normal 2.2-4.2 [facility] Comment on above: Order Comment: 1 Performed By: #### L 500.4050, L504.2610, L100.0100 ####[facility] [address] [place], [address] Glucose [Mass/Vol] 105 mg/dL Normal 74-106 [facility] Comment on above: Order Comment: 1 Result Comment: Fast ing Glucose result from 100 to 125 mg/dL suggests IMPAIRED HOMEOSTASIS per A.D.A. criteria. Performed By: #### L 500.4050, L504.2610, L100.0100 ####[facility] [address] [place], [address] Potassium [Moles/Vol] 3.8 mmol/L Normal 3.5-5.1 [facility] Comment on above: Order Comment: 1 Performed By: #### L 500.4050, L504.2610, L100.0100 ####[facility] [address] [place], [address] Sodium [Moles/Vol] 139 mmol/L Normal 136-145 [facility] Comment on above: Order Comment: 1 Performed By: #### L 500.4050, L504.2610, L100.0100 ####[facility] [address] [place], [address] T PROT 7.0 g/dL Normal 6.4-8.2 [facility] Comment on above: Order Comment: 1 Performed By: #### L 500.4050, L504.2610, L100.0100 ####[facility] [address] [place], [address] Urea nitrogen [Mass/Vol] 14 mg/dL Normal 7-18 [facility] Comment on above: Order Comment: 1 Performed By: #### L 500.4050, L504.2610, L100.0100 ####[facility] [address] [place], [address] LDHon 01-01-2024 LDH 170 U/L Normal 84-246 [facility] Comment on above: Order Comment: 1 Performed By: #### L 500.4050, L504.2610, L100.0100 ####[facility] [address] [place], [address] Oncology Visit Reporton 12-20 Oncology Visit Report [facility] [address] [place] [address] OFFICE VISIT Date of Service: 01/01/24 1120 MR#: [id number] Acct: [id number] Name: GEORGIA RO ANN Rep #: [id number] : 1945 From: Konstantin Saha MD Age/Sex: 78/F Location: [facility] Status: Signed HPI Subjective Date of Service 01/01/24 Chief Complaint Lymphoma History of Present Illness 77-year-old female who presented with self palpated painless enlarged lymph nodes in the left axilla. In August 2021 she had a left axillary lymph node core biopsy that showed a polytypic (benign) lymph node with flow cytometry showing no clonality. With persistent symptoms and the patient reporting some discomfort in the left axilla she had a repeat biopsy of the left axilla in April 2023. 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 Flow cytometry confirmed the diagnosis. The patient has had no B symptoms and is unaware of similarly enlarged lymph nodes. June 24, 2023 PET/CT initial staging: IMPRESSION: 1. The increase in radiopharmaceutical concentration defined in the left axillary region most likely represents the site of histopathologically confirmed lymphoma. 2. No other quantitatively significant hypermetabolic abnormalities are encountered. [facility] Medical History Left renal mass Abnormal CT of the abdomen Dupuytren contracture of right hand LLQ pain Obesity (BMI 30-39.9) Small lymphocytic lymphoma Wears glasses Wears partial dentures Wears dentures Seasonal allergies Non-smoker Sinusitis GERD (gastroesophageal reflux disease) Borderline type 2 diabetes mellitus Right hand pain Hyperglycemia Chronic sinusitis Shortness of breath Bilateral lower extremity edema Flu vaccine need Health care maintenance Tinnitus H/O tinnitus Chronic vertigo Cataracts, bilateral Back problem Actinic keratosis Cancer of skin of left ear Dupuytren's contracture Open cat bite of hand Cat bite of right hand with infection Restless leg syndrome Arthritis Vertigo High cholesterol Chronic hypertension Generalized osteoarthritis Surgical History History of left knee replacement History of colonoscopy History of lymph node biopsy History of cataract extraction H/O vaginal hysterectomy History of hysterectomy Cancer of skin of left ear Cat bite of right hand including fingers with infection Dupuytren contracture cancer removed S/P appendectomy S/P arthroscopy of knee History of total right knee replacement Family History Father Myocardial infarction Heart disease Hypertension Mother Breast cancer Grandmother Breast cancer Sister Lung cancer Seizures Social History Smoking Status: Never smoker alcohol intake: never substance use type: does not use caffeine: Yes what type of physical activity do you participate in: none seatbelt use: always do you feel safe at home: Yes additional social history: - Manuel SUN EXPOSURE: FREQUENTLY ROS Constitutional Constitutional: Reports systems reviewed and no addt'l complaints, except as documented, weight loss and other Details: Active weight loss ; Denies anorexia, fever(s) or night sweats Eyes Eyes: Reports systems reviewed and no addt'l complaints, except as documented ENT HEENT: Reports systems reviewed and no addt'l complaints, except as documented; Denies mouth lesions Cardiovascular Cardiovascular: Reports systems reviewed and no addt'l complaints, except as documented; Denies chest pain with activity or edema Respiratory/Chest Respiratory/Chest: Reports systems reviewed and no addt'l complaints, except as documented; Denies cough or dyspnea on exertion Gastrointestinal Gastrointestinal: Reports systems reviewed and no addt'l complaints, except as documented; Denies change in bowel habits, hematochezia or melena Genitourinary Genitourinary: Reports systems reviewed and no addt'l complaints, except as documented Musculoskeletal Musculoskeletal: Reports systems reviewed and no addt'l complaints, except as documented, arthralgias and other Details: Occasional discomfort in the left axilla where the enlarged lymph nodes are Integumentary Integumentary: Reports lesions, rash and other Details: Chronic rash on the extremities, so dermatology but the last visit was a few years earlier, self medicates with cnwl-bse-luxseas. Neurologic Neurologic: Reports systems reviewed and no addt'l complaints, except as documented; Denies focal weakness or paresthesias Psychiatric Psychiatric: Reports (more content not included)... Normal [facility] Basic Metabolic Profile (BMP )on 12-10-2023 BUN/CRE 19.9 RATIO Normal -20 [facility] Comment on above: Performed By: #### L 500.2500 ####[facility] [address] [place], [address] CA,Total 9.6 mg/dL Normal 8.5-10.1 [facility] Comment on above: Performed By: #### L 500.2500 ####[facility] [address] [place], [address] Chloride [Moles/Vol] 102 mmol/L Normal 98-107 [facility] Comment on above: Performed By: #### L 500.2500 ####[facility] [address] [place], [address] CO2 [Moles/Vol] 29.0 mmol/L Normal 21.0-32.0 [facility] Comment on above: Performed By: #### L 500.2500 ####[facility] [address] [place], [address] Creatinine [Mass/Vol] 0.95 mg/dL Normal 0.55-1.02 [facility] Comment on above: Result Comment: The validity of the calculated GFR GFRAA in patients over 70 years has not been determined. Clinical correlation is essential. Performed By: #### L 500.2500 ####[facility] [address] [place], [address] EST GFR - AA 73 mL/min Normal >60 [facility] Comment on above: Result Comment: Afri can Tanzanian GFR Calc Performed By: #### L 500.2500 ####[facility] [address] [place], [address] GAP 5 Normal 5-15 [facility] Comment on above: Performed By: #### L 500.2500 ####[facility] [address] [place], [address] GFR/1.73 sq M.predicted among non-blacks MDRD (S/P/Bld) [Vol rate/Area] 60 mL/min/{1.73_m2} Normal >60 [facility] Comment on above: Result Comment: Non- GFR Calc Performed By: #### L 500.2500 ####[facility] [address] [place], [address] Glucose [Mass/Vol] 125 mg/dL High 74-106 [facility] Comment on above: Result Comment: Fast ing Glucose result from 100 to 125 mg/dL suggests IMPAIRED HOMEOSTASIS per A.D.A. criteria. Performed By: #### L 500.2500 ####[facility] [address] [place], [address] Potassium [Moles/Vol] 3.8 mmol/L Normal 3.5-5.1 [facility] Comment on above: Performed By: #### L 500.2500 ####[facility] [address] [place], [address] Sodium [Moles/Vol] 136 mmol/L Normal 136-145 [facility] Comment on above: Performed By: #### L 500.2500 ####[facility] [address] [place], [address] Urea nitrogen [Mass/Vol] 19 mg/dL High 7-18 [facility] Comment on above: Performed By: #### L 500.2500 ####[facility] [address] [place], [address] Dexa Bone Density Studyon Dexa Bone Density Study [facility] Imaging Services [address] [place] [address] Dexa Bone Density Study MR#: [id number] Acct: [id number] Name: GEORGIA RO Rep #: [id number] : 1945 F 78 From: Andre sagastume MD PCP: Dr. Eboni Katz MD Status: [facility] Study: Dexa Bone Density Study Date of Exam: 12/10/23 Exam# [id number] Ordering [place]: [place] [id number] STUDY: DUAL ENERGY X-RAY ABSORPTIOMETRY / DXA REASON FOR EXAM: Female, 78 years old. Post menopausal TECHNIQUE: Bone Mineral Density (BMD) measurements of lumbar spine and bilateral hips were obtained. COMPARISON: Comparison is made with prior study dated September 22, 2018. FINDINGS: Lumbar Spine (L1-L4): g/cm2 (0.942) / T-score (-1.0) / Z-score (1.6) Findings are suggestive of normal bone density with a low fracture risk. Left Femur Total: g/cm2 (0.879) / T-score (-0.5) / Z-score (1.4) Left Femoral Neck: g/cm2 (0.678) / T-score (-1.5) / Z-score (0.6) Right Femur Total: g/cm2 (0.912) / T-score (-0.2) / Z-score (1.7) Right Femoral Neck: g/cm2 (0.715) / T-score (-1.2) / Z-score (1.0) The T-Scores on the most recent prior examination were: Lumbar Spine (L1-L4): There has been worsening of bone density since the previous examination. Left Femur Total: which represents a worsening of 6.5. Right Femur Total: which represents a worsening of 7.9%. BD/Dexa Bone Density Study IMPRESSION: The patient is considered osteopenic as outlined below according to [employer] (WHO) criteria with a low fracture risk. There has been worsening of bone density since the previous examination. Reference Information: The T-score is the number of standard deviations above or below the standard which is normal for young adults at their peak bone mineral density. The World Health Organization (WHO) interprets the T-scores as follows: Above -1 Normal bone density Between -1 and -2.5 Osteopenia Equal to / or below -2.5 Osteoporosis As a practical clinical guideline, osteopenia may be graded as follows: Mild -1 through -1.5 Moderate -1.6 through -2.0 Severe -2.1 through -2.4 The Z-score is the number of standard deviations above or below age-matched controls. A Z-score of less than -1.5 would be considered abnormal. References: 1. NIH Osteoporosis and Related Bone Diseases www osteo.org 2. International Society for Clinical Densitometry www iscd.org 3. National Osteoporosis Foundation www nof.org Electronically Signed: Andre Brian MD at 8:20 EDT , CC: Dr. Eboni Katz MD 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: Signed Normal [facility] SCRN MAMM (CAD)W/SUNITA BILATo n 12-10-2023 SCRN MAMM (CAD)W/SUNITA BILAT [facility] Imaging Services [address] [place], [place] [address] SCRN MAMM (CAD)W/SUNITA BILAT MR#: [id number] Acct: [id number] Name: GEORGIA RO Rep #: [id number] : 1945 F 78 From: Andre sagastume MD PCP: Dr. Eboni Katz MD Status: [facility] Study: SCRN MAMM (CAD)W/SUNITA BILAT Date of Exam: 11/20 05/14 Exam# [id number] Ordering [place]: [place] [id number] MAMMOGRAPHY - BILATERAL SCREENING REASON FOR EXAM: Female, 78 years old. Routine annual screening examination. PERTINENT HISTORY: Mother with breast cancer. TECHNIQUE: Digital bilateral breast sunita (3D mammographic acquisition) in the CC and MLO projections. 2-D mediolateral oblique (MLO) and craniocaudad (CC) views of both breasts were obtained. CAD: Full Field Digital Mammography with Computer Added Detection was performed. COMPARISON: Grandmother with breast cancer. FINDINGS: Breast Composition: The breasts are almost entirely fatty. There are no dominant masses or suspicious calcifications. Stable fat-containing bilateral axillary lymph nodes. No other significant abnormalities are identified. There has been no significant change since the prior study. BI/SCRN MAMM (CAD)W/SUNITA BILAT IMPRESSION: Stable bilateral screening mammogram. Yearly follow-up mammogram recommended. (A) ASSESSMENT CATEGORY: BIRADS Category 2: Benign. A letter regarding these results will be sent to the patient by the facility within 30 days. Approximately 10% of breast cancers are not detected by mammography. A normal mammogram should not delay biopsy of a clinically suspicious abnormality. [id number] Electronically Signed: Andre Brian MD at 13:37 EDT Reading Location ID and State: [address] [place] [address] , Service support , CC: Dr. Eboni Katz MD 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: Signed Normal [facility] Abdomen Limitedon 12-09-2023 Abdomen Limited [facility] Imaging Services [address] [place] [id number] Abdomen Limited MR#: [id number] Acct: [id number] Name: GEORGIA RO Rep #: [id number] : 1945 F 78 From: Andre sagastume MD PCP: Dr. Eboni Katz MD Status: REG CLI Study: Abdomen Limited Date of Exam: 12/09/23 Exam# [id number] Ordering [place]: [place] [id number] STUDY: ABDOMINAL ULTRASOUND - LEFT UPPER QUADRANT REASON FOR EXAM: Female, [address] Left renal mass TECHNIQUE: Transabdominal ultrasound was performed with real-time and static burnett scale imaging. TECHNICAL QUALITY: Adequate. COMPARISON: Comparison is made with prior CT scan dated December 04, 2023 FINDINGS: Spleen: Normal size of the spleen. The spleen measures 10.7 sign by 3.9 cm x 4.5 cm. Left Kidney: Normal size of the left kidney. The left kidney measures 10.7 cm x 3.9 cm x 4.5 cm. Normal renal cortex. The left cortex measures 1.2 cm. There is a 1.4 cm x 1.4 cm x 1.4 cm left renal cyst. There is no left hydronephrosis. US/Abdomen Limited IMPRESSION: 1.4 cm x 1.4 cm x 1.4 cm left renal cyst. Electronically Signed: Andre Brian MD at 16:01 EDT Reading Location ID and State: [facility] / [place] , Service support , CC: Dr. Eboni Katz MD 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: Signed Normal [facility] Abdomen/Pelvis WITH Contrast on 12-04-2023 Abdomen/Pelvis WITH Contrast [facility] Imaging Services [address] [place] [id number] Abdomen/Pelvis WITH Contrast MR#: [id number] Acct: [id number] Name: GEORGIA RO Rep #: [id number] : 1945 F 78 From: Andre sagastume MD PCP: Dr. Eboni Katz MD Status: [facility] Study: Abdomen/Pelvis WITH Contrast Date of Exam: Exam# [id number] Ordering Dr: Eboni Katz MD ADDENDUM by Dr. Andre Brian MD on 12/09/23 at 0938 ==== ADDENDUM ==== [id number] This is an addendum report. The patient is status post appendectomy. Electronically Signed: Andre Brian MD at 9:38 EDT , 12/09/2338 Date cc: Dr. Eboni Katz MD * Signed ADDENDUM by Dr. Andre Brian MD on 12/09/[address]/Abdomen/Pelvis WITH Contrast IMPRESSION: undefined 12/09/23 0945 Date cc: Dr. Eboni Katz MD * Signed [id number] STUDY: CT ABDOMEN AND PELVIS WITH CONTRAST REASON FOR EXAM: Female, 78 years old. LLQ Pain. History of lymphoma. RADIATION DOSAGE (If Supplied By Facility): CTDIvol = ( 16.85 ) mGy, DLP = ( 1028.41 ) mGycm TECHNIQUE: Transaxial images were obtained from the dome of the diaphragm to the symphysis pubis with oral contrast. Oral and amp; IV Readi-CAT and amp; 85 mL Isovue-300 was administered. Sagittal and coronal images were reconstructed. Individualized dose optimization techniques were used for this CT. COMPARISON: None. FINDINGS: The visualized lung bases are unremarkable. Coronary calcification. There is decreased attenuation of the liver consistent with steatosis. Normal gallbladder and extrahepatic biliary system. Normal spleen. Normal pancreas. Normal bilateral adrenal glands. Normal right kidney. There is a 1.3 cm hypoechoic dense lesion in the anterior lateral aspect of the left kidney. This does not represent a simple cyst. Correlation with ultrasound recommended. There is a small hiatal hernia. Normal small intestine. There are multiple colonic diverticula consistent with diverticulosis. The appendix is visualized and appears normal. Normal abdominal aorta. Normal inferior vena cava. Normal retroperitoneum. Normal urinary bladder. Normal abdominal wall. There are degenerative changes of the visualized lumbar spine. 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 CT/Abdomen/Pelvis WITH Contrast IMPRESSION: 1.3 cm hypoechoic lesion in the anterior lateral aspect of the left kidney. This does not look like a simple cyst. Correlation with ultrasound recommended. Fatty infiltration of the liver. Electronically Signed: Andre Brian MD at 15:10 EDT , CC: Dr. Eboni Katz MD 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: Signed Normal [facility] CREATININE FINGERSTICKon CREATININE WB < 1.0 Normal 0.55-1.02 [facility] Comment on above: Performed By: #### L 9100.0200 ####[facility] [address] [place], [place], [id number] EGFR WB > 60.0000 Normal >60 [facility] Comment on above: Performed By: #### L 9100.0200 ####[facility] [address] [place], [place], [address] Internal Medicine Office Vis ito 11-19-2023 Internal Medicine Office Visit [facility] [address] [place] [address] [place] [address] OFFICE VISIT Date of Service: 11/19/23 MR#: [id number] Acct: [id number] Name: GEORGIA RO Rep #: [id number] : 1945 Provider: Dr. Eboni garcia MD Age/Sex: 78/F Location: [facility] Status: Signed Intake Vital Signs 08/13/23 10:13 11/19/23 10:05 Height 5 ft 6 in 5 ft 6 in Weight: 205 lb BMI 33.0 BP 146/70 H Blood Pressure Location Lt brachial Position Sitting Respiration 18 Pulse 74 Pulse Source Monitor Temp 95.9 F L Temp Source Temporal Pulse Oximetry (%) 97 Oxygen Delivery Method room air Intake Visit Reasons: 3 M FU Chief Complaint: 3 M FU Allergies lisinopril (From Zestril) Adverse Reaction (Intermediate, Verified 11/19/23 10:05) Cough hydrocodone bitartrate (From Vicodin) Adverse Reaction (Mild, Verified 11/19/23 10:05) Itching Medications ???Medication ???Instructions ???Recorded ???Confirmed ???Type multivitamin with iron 1 tab PO DAILY 03/31/13 11/19/23 History biotin 2,500 mcg capsule 2,500 mcg PO ONCE 07/15/17 11/19/23 History aspirin 81 mg capsule 81 mg PO DAILY 09/18/21 11/19/23 History acetaminophen 325 mg tablet 650 mg (2 x 325 mg) PO Q4H PRN PRN 05/21/23 11/19/23 Rx Pain Or Fever #0 tabs amlodipine 5 mg tablet 7.5 mg (1.5 x 5 mg) PO DAILY 3 08/22/23 11/19/23 Rx months #135 tabs hydrochlorothiazide 25 mg tablet See Rx Instructions .Route 08/22/23 11/19/23 Rx .COMPLEX #90 tabs pantoprazole 40 mg tablet,delayed 40 mg PO DAILY #90 tabs 08/22/23 11/19/23 Rx release potassium chloride 20 mEq 20 meq PO BID #180 tabs 08/22/23 11/19/23 Rx tablet,extended release ropinirole 0.5 mg tablet 0.5 mg PO TID #360 tabs 08/22/23 11/19/23 Rx celecoxib 200 mg capsule (Celebrex) 200 mg PO DAILY PRN pain #90 caps 09/16/23 11/19/23 Rx oxybutynin chloride 10 mg 10 mg PO DAILY #90 TABLETS 10/15/23 11/19/23 Rx tablet,extended release 24 hr losartan 100 mg tablet 100 mg PO DAILY 3 months #90 tabs 11/19/23 11/19/23 Rx Have you fallen in the past year?: No PFSH Medical History (Updated 11/19/23 @ 12:[address] Eboni Katz MD) Dupuytren contracture of right hand LLQ pain Obesity (BMI 30-39.9) Small lymphocytic lymphoma Wears glasses Wears partial dentures Wears dentures Seasonal allergies Non-smoker Sinusitis GERD (gastroesophageal reflux disease) Borderline type 2 diabetes mellitus Right hand pain Hyperglycemia Chronic sinusitis Shortness of breath Bilateral lower extremity edema Flu vaccine need Health care maintenance Tinnitus H/O tinnitus Chronic vertigo Cataracts, bilateral Back problem Actinic keratosis Cancer of skin of left ear Dupuytren's contracture Open cat bite of hand Cat bite of right hand with infection Restless leg syndrome Arthritis Vertigo High cholesterol Chronic hypertension Generalized osteoarthritis Surgical History History of left knee replacement History of colonoscopy History of lymph node biopsy History of cataract extraction H/O vaginal hysterectomy History of hysterectomy Cancer of skin of left ear Cat bite of right hand including fingers with infection Dupuytren contracture cancer removed S/P appendectomy S/P arthroscopy of knee History of total right knee replacement Family History Father Myocardial infarction Heart disease Hypertension Mother Breast cancer Grandmother Breast cancer Sister Lung cancer Seizures Social History Smoking Status: Never smoker alcohol intake: never substance use type: does not use caffeine: Yes what type of physical activity do you participate in: none seatbelt use: always do you feel safe at home: Yes additional social history: Nelly Jackson SUN EXPOSURE: FREQUENTLY HPI HPI Chief Complaint: 3 M FU Details: GEORGIA RO, is a 78 F who presents to the office today for follow-up of her chronic medical conditions. Also has some concerns. History of Dupuytren's contracture of her right. Has also had surgery on the right following a cat bite. Lately, she reports worsening pain and stiffness. She would like to have this reevaluated. Also history of left lower abdominal pain. At her last visit it had been intermittent and at the time of the visit, was not present. She however states that since then, pain has become more consistent and bothersome. No change in bowel or bladder habit. Feels well otherwise. Appetite is good. Blood pressure is elevated today at 146/70 mmHg. She states that her readings at home have been similar. She reports compliance with her medications. No chest pain, palpitation or shortness (more content not included)... Normal [facility] Absolute lymphocyte countOrd ered By: Eboni Katz on 05-14-2023 Lymphocytes Auto (Unsp spec) [#/Vol] 2.11 10*3/uL 0.83-4.51 [facility] Automated lymphocyte count a s percentage of total leukocytesOrdered By: Eboni Katz on 05-14-2023 Lymphocytes/100 WBC Auto (Unsp spec) 33.1 % 19-41 [facility] Basophil percentageOrdered B y: Eboni Katz on 05-14-2023 Basophils/100 WBC (Bld) 1.1 % 0-1 [facility] Bilirubin [Mass/Vol] 0.70 mg/dL 0.20-1.00 [facility] Comment on above: For patients on eltr ombopag therapy, use of Dimension [place] TBIL is not recommended. Chloride [Moles/Vol] 105 mmol/L 98-107 [facility] Cholesterol [Mass/Vol] 189 mg/dL <200 [facility] Comment on above: <200 mg/dL Desirable 200-240 mg/dL Borderline >240 mg/dL High Risk Eosinophils/100 WBC (Bld) 1.7 % 0-5 [facility] Glucose [Mass/Vol] 106 mg/dL 74-106 [facility] Comment on above: Fasting Glucose resu lt from 100 to 125 mg/dL suggests IMPAIRED HOMEOSTASIS per A.D.A. criteria. Hemoglobin (Bld) [Mass/Vol] 14.0 g/dL 12.0-15.0 [facility] Monocytes/100 WBC (Bld) 9.1 % 0-10 [facility] Neutrophils (Bld) [#/Vol] 3.5 10*3/uL 2.0-7.7 [facility] Neutrophils/100 WBC (Bld) 54.5 % 47-70 [facility] Potassium [Moles/Vol] 3.9 mmol/L 3.5-5.1 [facility] Protein [Mass/Vol] 7.0 g/dL 6.4-8.2 [facility] Sodium [Moles/Vol] 137 mmol/L 136-145 [facility] Triglyceride [Mass/Vol] 140 mg/dL <199 [facility] Comment on above: The drugs N-Acetylcy steine and Metamizole may falsely depress this assay.Serum Triglycerides Reference Interval Normal <150 mg/dL Borderline high 150 - 199 mg/dL High 200 - 499 mg/dL Very High > or = 500 mg/dL WBC (Bld) [#/Vol] 6.4 10*3/uL 4.4-11.0 [facility] Determination of erythrocyte mean corpuscular volume (MCV)Ordered By: Eboni Katz on 05-14-2023 MCV (RBC) [Entitic vol] 90.8 fL 81-99 [facility] Erythrocyte distribution wid th ratioOrdered By: Philliparchbold - [facility]aretha Allenlenore on 05-14-2023 Erythrocyte distribution width (RBC) [Ratio] 13.1 % 11.6-14.6 [facility] Erythrocyte distribution wid th standard deviationOrdered By: Eboni Allenlenore on 05-14-2023 Erythrocyte distribution width (RBC) [Entitic vol] 43.8 fL 35.1-43.9 [facility] Hematocrit Auto (Bld) [Volum e fraction]Ordered By: Eboni Katz on 05-14-2023 Hematocrit (Bld) [Volume fraction] 43.5 % 37-47 [facility] High density lipoprotein (HD L) measurementOrdered By: Eboni Katz on 05-14-2023 Cholesterol in HDL (Body fld) [Mass/Vol] 44 mg/dL >40 [facility] Comment on above: The drugs N-Acetylcy steine and Metamizole may falsely depress this assay. Reference Range HDL <40 mg/dL Low HDL Cholesterol HDL >or= 60 mg/dL High HDL Cholesterol Immature granulocytes/100 WB C Auto (Bld)Ordered By: Eboni Katz on 05-14-2023 Immature granulocytes/100 WBC (Bld) 0.500 % 0.0-0.9 [facility] Comment on above: IG% - Immature Granu locytes (promyelocytes, myelocytes and metamyelocytes) > 1% indicates that a LEFT SHIFT is Present. Laboratory - Chemistry and C hemistry - challengeOrdered By: Eboni Katz on 05-14-2023 Albumin/Globulin [Mass ratio] 0.9 {ratio} 0.9-2.4 [facility] ALP [Catalytic activity/Vol] 80 U/L 45-117 [facility] ALT [Catalytic activity/Vol] 22 U/L 13-56 [facility] CO2 [Moles/Vol] 27.0 mmol/L 21.0-32.0 [facility] Globulin (S) [Mass/Vol] 3.6 g/dL 2.2-4.2 [facility] Urea nitrogen/Creatinine [Mass ratio] 21.7 mg/mg 10-20 [facility] Laboratory - Hematology and Cell countsOrdered By: Eboni Katz on 05-14-2023 MCH (RBC) [Entitic mass] 29.2 pg 27.0-32.0 [facility] MCHC (RBC) [Mass/Vol] 32.2 g/dL 32-36 [facility] Nucleated RBC/100 WBC (Bld) [Ratio] 0 % 0-5 [facility] Platelets (Bld) [#/Vol] 250 10*3/uL 150-450 [facility] Low density lipoprotein (LDL ) cholesterol measurementOrdered By: Eboni Katz on 05-14-2023 Cholesterol in LDL (Body fld) [Moles/Vol] 117 mg/dL 0-130 [facility] No Panel InformationOrdered By: Eboni Katz on 05-14-2023 Estimated GFR (MDRD) Amer 92 mL/min >60 [facility] Comment on above: GFR Calc Estimated GFR (MDRD) Non-Af Amer 76 mL/min >60 [facility] Comment on above: Non- GFR Calc Platelet mean volume Robert-Ec ker (Bld) [Entitic vol]Ordered By: Eboni Katz on 05-14-2023 Platelet mean volume (Bld) [Entitic vol] 11.0 fL 6.2-12.0 [facility] RBC Auto (Bld) [#/Vol]Ordere d By: Eboni Katz on 05-14-2023 RBC (Bld) [#/Vol] 4.79 10*6/uL 4.2-5.4 [facility] Serum or plasma calcium jose l urement (mass/volume)Ordered By: Eboni Katz on 05-14-2023 Calcium [Mass/Vol] 9.4 mg/dL 8.5-10.1 [facility] Serum or plasma creatinine m easurement (mass/volume)Ordered By: Eboni Katz on 05-14-2023 Creatinine [Mass/Vol] 0.78 mg/dL 0.55-1.02 [facility] Comment on above: The validity of the calculated GFR & GFRAA in patients over 70 years has not been determined. Clinical correlation is essential. Serum or plasma urea nitroge n measurement (mass/volume)Ordered By: Eboni Katz on 05-14-2023 Urea nitrogen [Mass/Vol] 17 mg/dL 7-18 [facility] Thin prep Papanicolaou smear with manual screeningOrdered By: Eboni Katz on 05-14-2023 Thin prep Papanicolaou smear with manual screening 3.4 g/dL 3.2-5.0 [facility] Thin prep Papanicolaou smear with manual screening 20 U/L 15-37 [facility] Thin prep Papanicolaou smear with manual screening 5 5-15 [facility] Very low density lipoprotein (VLDL) cholesterol measurementOrdered By: Eboni Katz on 05-14-2023 Cholesterol in VLDL Calc [Moles/Vol] 28 mg/dL 5-40 [facility] Whole blood hemoglobin A1c/t otal hemoglobin ratio (mass fraction)Ordered By: Eboni Katz on 05-14-2023 HbA1c (Bld) [Mass fraction] 6.0 % 3.8-5.6 [facility] Comment on above: Normal < 5.7 % Predi abetic 5.7 - 6.4 % Diabetic >or= 6.5 % Please note range changes. Laboratory - Hematology and Cell countson 02-10-2023 HbA1c (Bld) [Mass fraction] 6.2 % 4.2-6.3 [facility] Basophil percentageOrdered B y: Eboni Katz on 10-07-2022 Chloride [Moles/Vol] 103 mmol/L 98-107 [facility] Glucose [Mass/Vol] 148 mg/dL 74-106 [facility] Comment on above: Fasting Glucose resu lt greater than or equal to 126 mg/dL suggests DIABETES MELLITUS per A.D.A. criteria. Potassium [Moles/Vol] 3.6 mmol/L 3.5-5.1 [facility] Sodium [Moles/Vol] 138 mmol/L 136-145 [facility] Laboratory - Chemistry and C hemistry - challengeOrdered By: Eboni Katz on 10-07-2022 CO2 [Moles/Vol] 29.0 mmol/L 21.0-32.0 [facility] Urea nitrogen/Creatinine [Mass ratio] 23.1 mg/mg 10- [facility] No Panel InformationOrdered By: Eboni Katz on 10-07-2022 Estimated GFR (MDRD) Amer 78 mL/min >60 [facility] Comment on above: GFR Calc Estimated GFR (MDRD) Non-Af Amer 64 mL/min >60 [facility] Comment on above: Non- GFR Calc Serum or plasma calcium jose l urement (mass/volume)Ordered By: Eboni Katz on 10-07-2022 Calcium [Mass/Vol] 9.5 mg/dL 8.5-10.1 [facility] Serum or plasma creatinine m easurement (mass/volume)Ordered By: Eboni Katz on 10-07-2022 Creatinine [Mass/Vol] 0.91 mg/dL 0.55-1.02 [facility] Comment on above: The validity of the calculated GFR & GFRAA in patients over 70 years has not been determined. Clinical correlation is essential. Serum or plasma urea nitroge n measurement (mass/volume)Ordered By: Eboni Katz on 10-07-2022 Urea nitrogen [Mass/Vol] 21 mg/dL 7-18 [facility] Thin prep Papanicolaou smear with manual screeningOrdered By: Eboni Katz on 10-07-2022 Thin prep Papanicolaou smear with manual screening 6 5-15 [facility] Whole blood hemoglobin A1c/t otal hemoglobin ratio (mass fraction)Ordered By: Eboni Katz on 10-07-2022 HbA1c (Bld) [Mass fraction] 6.1 % 3.8-5.6 [facility] Comment on above: Normal < 5.7 % Predi abetic 5.7 - 6.4 % Diabetic >or= 6.5 % Please note range changes. Laboratory - Hematology and Cell countson 07-05-2022 HbA1c (Bld) [Mass fraction] 6.1 % 4.2-6.3 [facility] Absolute lymphocyte counton 09-14-2021 Lymphocytes Auto (Unsp spec) [#/Vol] 2.11 10*3/uL 0.83-4.51 [facility] Work Phone: Basophil percentageon 2021 Basophils/100 WBC (Bld) 0.8 % 0-1 [facility] Work Phone: Eosinophils/100 WBC (Bld) 2.1 % 0-5 [facility] Work Phone: Neutrophils (Bld) [#/Vol] 3.3 10*3/uL 2.0-7.7 [facility] Work Phone: Neutrophils/100 WBC (Bld) 52.9 % 47-70 [facility] Work Phone: WBC (Bld) [#/Vol] 6.3 10*3/uL 4.4-11.0 [facility] Work Phone: Blood erythrocytes count (nu mber/volume)on 09-14-2021 RBC (Bld) [#/Vol] 4.72 10*6/uL 4.2-5.4 [facility]: Blood hemoglobin measurement (mass/volume)on 09-14-2021 Hemoglobin (Bld) [Mass/Vol] 14.1 g/dL 12.0-15.0 [facility] Work Phone: Blood lymphocytes/100 leukoc yteson 09-14-2021 Lymphocytes/100 WBC (Bld) 33.5 % 19-41 [facility] Work Phone: Blood monocytes/100 leukocyt eson 09-14-2021 Monocytes/100 WBC (Bld) 9.7 % 0-10 [facility] Work Phone: Blood platelet mean volumeon 09-14-2021 Platelet mean volume (Bld) [Entitic vol] 10.8 fL 6.2-12.0 [facility] Work Phone: Determination of erythrocyte mean corpuscular volume (MCV)on 09-14-2021 MCV (RBC) [Entitic vol] 86.9 fL 81-99 [facility] Work Phone: Hematocrit Auto (Bld) [Volum e fraction]on 09-14-2021 Hematocrit (Bld) [Volume fraction] 41.0 % 37-47 [facility] Work Phone: Laboratory - Hematology and Cell countson 09-14-2021 Erythrocyte distribution width (RBC) [Entitic vol] 42.5 fL 35.1-43.9 [facility] Work Phone: Erythrocyte distribution width (RBC) [Ratio] 13.3 % 11.6-14.6 [facility] Work Phone: Immature granulocytes/100 WBC (Bld) 1.000 % 0.0-0.9 [facility] Work Phone: Comment on above: IG% - Immature Granu locytes (promyelocytes, myelocytes and metamyelocytes) > 1% indicates that a LEFT SHIFT is Present. MCH (RBC) [Entitic mass] 29.9 pg 27.0-32.0 [facility] Work Phone: Nucleated RBC/100 WBC (Bld) [Ratio] 0 % 0-5 [facility] Work Phone: MCHC Auto (RBC) [Mass/Vol]on 09-14-2021 MCHC (RBC) [Mass/Vol] 34.4 g/dL 32-36 [facility] Work Phone: Platelets bldon 09-14-2021 Platelets (Bld) [#/Vol] 203 10*3/uL 150-450 [facility] Work Phone: Basophil percentageon 2021 Chloride [Moles/Vol] 102 mmol/L 98-107 [facility] Work Phone: Glucose [Mass/Vol] 123 mg/dL 74-106 [facility] Work Phone: Comment on above: Fasting Glucose resu lt from 100 to 125 mg/dL suggests IMPAIRED HOMEOSTASIS per A.D.A. criteria. Potassium [Moles/Vol] 3.5 mmol/L 3.5-5.1 [facility] Work Phone: Sodium [Moles/Vol] 138 mmol/L 136-145 [facility] Work Phone: Laboratory - Chemistry and C hemistry - challengeon 09-03-2021 CO2 [Moles/Vol] 31.0 mmol/L 21.0-32.0 [facility] Work Phone: Natriuretic peptide B (Bld) [Mass/Vol] 26.0 pg/mL 0-100 [facility] Work Phone: Urea nitrogen/Creatinine [Mass ratio] 19.6 mg/mg 10-20 [facility] Work Phone: No Panel Informationon 09-03 Estimated GFR (MDRD) Amer 88 mL/min >60 [facility] Work Phone: Comment on above: GFR Calc Estimated GFR (MDRD) Non-Af Amer 73 mL/min >60 [facility] Work Phone: Comment on above: Non- GFR Calc Serum or plasma calcium jose l urement (mass/volume)on 09-03-2021 Calcium [Mass/Vol] 9.4 mg/dL 8.5-10.1 [facility] Work Phone: Serum or plasma creatinine m easurement (mass/volume)on 09-03-2021 Creatinine [Mass/Vol] 0.82 mg/dL 0.55-1.02 [facility] Work Phone: Comment on above: The validity of the calculated GFR & GFRAA in patients over 70 years has not been determined. Clinical correlation is essential. Serum or plasma urea nitroge n measurement (mass/volume)on 09-03-2021 Urea nitrogen [Mass/Vol] 16 mg/dL 7-18 [facility] Work Phone: Thin prep Papanicolaou smear with manual screeningon 09-03-2021 Thin prep Papanicolaou smear with manual screening 5 5-15 [facility] Work Phone: OBSOLETEon 03-10-2019 OBSOLETE Refill (INTMWS) [place] RO ([id number]) 1945 F Date Time Provider Department 03/10/19 [facility] INTMWS During your visit today, we recorded the following information about you: Hannah Santos RN 03/10/2019 10:29 AM Signed [facility] phones requesting refills as follows: Pending Prescriptions Disp Refills CELECOXIB 200 MG CAPSULE 90 capsule 1 Sig: Take 1 capsule by mouth once daily. ENRIQUE: No Verified pharmacy Last office visit 03-24-18, NO APT SCHEDULED Please review and advise. Hannah Bernardo APRN.CALL WORKER PERSON 03/11/2019 2:27 PM Signed Please notify pharmacy per our records patient established with a new provider 11/2018 and will need to contact current PCP for refills. Kameron Bernardo APRN.CALL WORKER PERSON Allergies As of Date: 03/10/2019 Noted Allergy Reaction environmental [Other] 02/20/2006 Comments: ragweed VICODIN (HYDROCODONE-ACETAMINOP HE*12/03/2004 9 - Itching 14 - Other: See [...] Status:Closed by SETH CHOUDHARY CMA on 03/15/19 [facility] OBSOLETEon 11-02-2018 OBSOLETE Refill (INTMWS) [place] RO ([id number]) 1945 F Date Time Provider Department 11/02/18 [facility] INTMWS During your visit today, we [...] applicable Please advise. Thank you. Georgette Bernardo APRN.[facility] 11/02/2018 4:33 PM Signed The following approved medication requests have been transmitted electronically. Signed Prescriptions Disp Refills rOPINIRole (REQUIP) 0.5 mg tablet 270 tablet 1 Sig: Take 1 tablet by mouth three times daily. ENRIQUE: No Authorizing Provider: KAMERON BERNARDO (CALL WORKER PERSON) Kameron Bernardo APRN.CALL WORKER PERSON Allergies As of Date: 11/02/2018 Noted Allergy Reaction environmental [Other] 02/20/2006 Comments: ragweed VICODIN (HYDROCODONE-ACETAMINOP HE*12/03/2004 9 - Itching 14 - Other: See [...] is not on file. Encounter Status:Closed by KAMERON BERNARDO CNP on 11/02/18 [facility] OBSOLETEon 10-20-2018 OBSOLETE Refill (FAMPWS) [place] RO ([id number]) 1945 F Date Time Provider Department 10/20/18 [facility] FAMPWS During your visit today, we recorded the following information about you: Micki Mcginnis MA 10/20/2018 1:54 PM Signed Physician: [facility] Call from pharmacy requesting refill. Please E-Scribe Last OV: 03/24/18 with [facility] No future office visit Pending Prescriptions Disp Refills ROPINIROLE 0.5 MG TABLET 270 tablet 3 Sig: Take 1 tablet by mouth three times daily. ENRIQUE: No Micki Bernardo APRN.CNP 10/20/2018 5:13 PM Signed Review of patient's medical record shows active prescription at pharmacy. Kameron Bernardo APRN.CALL WORKER PERSON Allergies As of Date: 10/20/2018 Noted Allergy Reaction environmental [Other] 02/20/2006 Comments: ragweed VICODIN (HYDROCODONE-ACETAMINOP HE*12/03/2004 9 - Itching 14 - Other: See [...] INVALID FOR*08/20/2017 Osteoarthritis [M19.90] INVALID FOR* More... MAURISOI (obstructive sleep apnea) [G47.33] INVALID FOR* More... RLS (restless legs syndrome) [G25.81] INVALID FOR* Encounter Status:Closed by SETH CHOUDHARY CMA on 10/21/18 [facility] OBSOLETEon 10-07-2018 OBSOLETE Refill (INTMWS) [place] RO ([id number]) 1945 F Date Time Provider Department 10/07/18 [facility] IN[facility] During your visit today, we [...] applicable Please advise. Thank you. Erin Bernardo APRN.CNP 10/08/2018 10:40 AM Signed The following approved medication requests have been transmitted electronically. Signed Prescriptions Disp Refills losartan (COZAAR) 50 mg tablet 90 tablet 0 Sig: Take 1 tablet by mouth once daily. ENRIQUE: No Authorizing Provider: KAMERON BERNARDO (CALL WORKER PERSON) Kameron Bernardo APRN.CNP Allergies As of Date: 10/07/2018 Noted Allergy Reaction environmental [Other] 02/20/2006 Comments: ragweed VICODIN (HYDROCODONE-ACETAMINOP HE*12/03/2004 9 - Itching 14 - Other: See [...] is not on file. Encounter Status:Closed by KAMERON BERNARDO CNP on 10/08/18 [facility] OBSOLETEon 08-31-2018 OBSOLETE Refill (INTMWS) [place] RO ([id number]) 1945 F Date Time Provider Department 08/31/18 [facility] INTMWS During your visit today, we [...] mouth once daily. ENRIQUE: No Authorizing Provider: KAMERON BERNARDO (LISA) Kameron Bernardo APRN.CALL WORKER PERSON Allergies As of Date: 08/31/2018 Noted Allergy Reaction environmental [Other] 02/20/2006 Comments: ragweed VICODIN (HYDROCODONE-ACETAMINOP HE*12/03/2004 9 - Itching 14 - Other: See [...] is not on file. Encounter Status:Closed by KAMERON BERNARDO CNP on 08/31/18 Normal [facility] PROGRESSon 05-12-2018 PROGRESS HNO ID: [id number] Author: Cintia (Rt) Cheli Mcginnis Service: (none) Author Type: Script Developer Type: Progress Notes Filed: 05/12/2018 8:25 AM Note Text: Radiology Service Progress Note PATIENT NAME: [place] Ro DATE OF SERVICE: May 12, 2018 [...] RT Jonathan May 12, 2018 8:07 AM [facility] XR ANKLE 3V AP/LAT/OBL LTon 05-12-2018 XR [...] There is no focal soft tissue swelling. 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: [employer] Transcribe Date/Time: May 12 2018 9:07A Dictated by : GIL MARTÍNEZ MD This examination was interpreted and the report reviewed and electronically signed by: GIL MARTÍNEZ MD on May 12 2018 9:11AM EST [id number] (INTMWS[facility] [place] RO ([id number]) 1945 F Date Time Provider Department 05/04/18 KAMERON BERNARDO ([facility]) INTMWS During your visit today, we recorded the following information about you: Lilli Vale RN 05/04/2018 2:25 PM Signed Tricia merrill from [employer] part of [employer] regarding MRI of left ankle. This has been reviewed by medical records manager and he would need additional clinical information to consider this for coverage. A peer to peer would need completed before 05/09/18, to consider this for possible coverage. Please call for peer to peer. Case # [id number]. Please review and advise. CARLITA Davis LPN 05/05/2018 9:18 AM Signed Vero with [employer] part of [employer] calling with an updated phone number to call to to the peer to peer [phone] Option 4. Case # [id number]. Lilli Gomez RN 05/11/2018 8:54 AM Signed Moises Monge- esvin PA for MRI has been denied. nurses director did not approve request due to no plain x-ray results. Will mail letter with appeal options to Kameron Bernardo (reports they have a blocked fax # for Megan Bernardo- they are not allowed to fax to). Call with any questions, case # [id number]. Kameron Bernardo APRN.LISA 05/11/2018 10:06 AM Signed Can we please touch base with patient and let her know that the MRI was denied. They are requesting plain films to be completed first, will order xray if she is still having pain and swelling of the lower extremity. If symptoms are improving there is no need to proceed with imaging. Kameron Bernardo APRN.LISA [place] URI 05/11/2018 10:11 AM Signed Pt notified, she noted no improvement, she will come in for xray. Kameron Bernardo APRN.CNP 05/11/2018 10:20 AM Signed Addended by: KAMERON BERNARDO CNP on: 05/11/2018 10:20 AM Modules accepted: Orders Allergies As of Date: 05/04/2018 Noted Allergy Reaction environmental [Other] 02/20/2006 Comments: ragweed VICODIN (HYDROCODONE-ACETAMINOP HE*12/03/2004 9 - Itching 14 - Other: See [...] M79.89] Order(s):XR TIBIA FIBULA 2V AP/LAT LT [[id number]] Order #: [id number] FUTURE XR ANKLE GENERAL 3V AP/LAT/OBL LT [[id number]] Order #: [id number] FUTURE Prescriptions as of 05/04/2018 Sig: POTASSIUM [...] by RAMÓN WILLIAMSON LPN on 05/11/18 Normal [facility] US EXTREMITY MASS/FLUID KATHY LEFT COMPLTon 03-31-2018 US EXTREMITY MASS/FLUID KATHY LEFT COMPLT Performed at [facility] APPROVED BY: Wilbert Freedman MD EXAM TITLE: [...] be the next study of choice. Normal [facility] CNOVon 03-24-2018 CNOV Office Visit (INTMWS ) [place] RO ([id number]) 1945 F Date Time Provider Department 03/24/18 8:40 AM KAMERON BERNARDO ([facility]) INTMWS During your visit today, we recorded the following information about you: Temperature Pulse Respiration Blood pressure 97.7 degrees 72/minute 16/minute 128/84 Weight 97.1 kg Kameron Bernardo APRN.CNP 03/24/2018 9:04 AM Signed For now try to rest the left leg as much as possible with elevation and use of compression (Duane wrap) especially when up ambulating. Ice the left ankle at least 3x daily. Kameron Bernardo APRN.CNP 03/24/2018 9:38 AM Signed HPI/CC: Georgia Ro is a 72 year old female [...] elevation and NSAIDs - Recommend compression with DUANE wrap - Follow up to be determined by imaging studies Kameron Bernardo APRN.CALL WORKER PERSON Prescription instructions reviewed with patient as applicable. Potential red flag symptoms discussed with the patient. Reviewed appropriate action plan to take if red flag symptoms occur. Patient agreeable to treatment plan. Kameron Bernardo APRN.CALL WORKER PERSON Referring Provider: SELF [[id number]] Allergies As of Date: 03/24/2018 Noted Allergy Reaction environmental [Other] 02/20/2006 Comments: ragweed VICODIN (HYDROCODONE-ACETAMINOP HE*12/03/2004 9 - Itching 14 - Other: See [...] capsuleRfl: 3 US EXTREMITY MASS/FLUID COLLECTION LT [[id number]] Order #: [id number] FUTURE Prescriptions as of 03/24/2018 Sig: POTASSIUM [...] possible with elevation and use of compression (Duane wrap) especially when up ambulating. Ice the [...] is not on file. Encounter Status:Closed by KAMERON BERNARDO CNP on 03/24/18 Normal [facility] PROGRESSon 03-24-2018 PROGRESS HNO ID: [id number] Author: Kameron (Lisa) Charli Service: (none) Author Type: Nurse Practitioner Type: Progress Notes Filed: 03/24/2018 9:38 AM Note Text: HPI/CC: Georgia Ro is a 72 year old female [...] elevation and NSAIDs - Recommend compression with DUANE wrap - Follow up to be determined by imaging studies Kameron Bernardo APRN.ILSA Prescription instructions reviewed with patient as applicable. Potential red flag symptoms discussed with the patient. Reviewed appropriate action plan to take if red flag symptoms occur. Patient agreeable to treatment plan. Kameron Bernardo APRN.CALL WORKER PERSON Normal [facility] Office Visit: postop surgery 12/19/16on 02-05-2017 Dietary management education, guidance, and counseling (procedure) yes Invalid Interpretation Code [facility] Work Phone: [phone] Documentation of current medications (procedure) Done Invalid Interpretation Code [facility] Work Phone: [phone] Fall risk assessment No Invalid Interpretation Code [facility] Work Phone: [phone] Tobacco smoking status NHIS Never Invalid Interpretation Code [facility] Work Phone: [phone] Tobacco use HS Never smoker Invalid Interpretation Code [facility] Work Phone: [phone] Microbiology: Acid Fast Bact Cult/Smon 05-16-2016 AFBCS . Invalid Interpretation Code [facility] Work Phone: [phone] Replaced Document: (P) Fungu s Stainon 05-09-2016 FUNST . Invalid Interpretation Code [facility] Work Phone: [phone] Lab Report: Basic Metabolic Profile (BMP)on 04-05-2016 Anion gap 4 mmol/L Low 5-15 [facility] Work Phone: [phone] BUN/Creatinine Ratio 18.3 RATIO Invalid Interpretation Code 10-20 [facility] Work Phone: [phone] Calcium 9.4 mg/dL Invalid Interpretation Code 8.5-10.1 [facility] Work Phone: [phone] Chloride 103 mmol/L Invalid Interpretation Code 98-107 [facility] Work Phone: [phone] CO2 29.0 mmol/L Invalid Interpretation Code 21.0-32.0 [facility] Work Phone: [phone] Creatinine 0.77 mg/dL Invalid Interpretation Code 0.55-1.02 [facility] Work Phone: [phone] Creatinine 49.70 mL/min Invalid Interpretation Code [facility] Work Phone: [phone] eGFR (non-black) 79 mL/min/{1.73_m2} Invalid Interpretation Code >60 [facility] Work Phone: [phone] eGFR (non-black) 96 mL/min/{1.73_m2} Invalid Interpretation Code >60 [facility] Work Phone: [phone] Glucose mass conc 125 mg/dL High 70-110 [facility] Work Phone: [phone] Potassium molar conc 4.2 mmol/L Invalid Interpretation Code 3.5-5.1 [facility] Work Phone: [phone] Sodium 136 mmol/L Invalid Interpretation Code 136-145 [facility] Work [phone] Urea nitrogen 14 mg/dL Invalid Interpretation Code 7-18 [facility] Work Phone: [phone] Lab Report: CBC-Complete Blo od Cnt No Diffon 04-05-2016 Erythrocyte distribution width Auto Ratio (RBC) 12.5 % Invalid Interpretation Code 11.6-14.6 [facility] Work Phone: [phone] Erythrocytes (RBC) 4.30 10*6/uL Invalid Interpretation Code 4.2-5.4 [facility] Work Phone: [phone] Hematocrit (HCT) 38.8 % Invalid Interpretation Code 37-47 [facility] Work Phone: [phone] Hemoglobin mass conc (Bld) 13.2 g/dL Invalid Interpretation Code 12.0-15.0 [facility] Work [phone] MCH 30.7 pg Invalid Interpretation Code 27.0-32.0 [facility] Work Phone: [phone] MCHC mass conc (RBC) 34.0 G/GL Invalid Interpretation Code 32-36 [facility] Work [phone] MCV 90.2 fL Invalid Interpretation Code 81-99 [facility] Work Phone: [phone] Platelets 214 10*3/mm3 Invalid Interpretation Code 150-450 [facility] Work Phone: [phone] PMV by German 10.9 fL Invalid Interpretation Code 6.2-12.0 [facility] Work [phone] RDW SD 40.9 fL Invalid Interpretation Code 35.1-43.9 [facility] Work Phone: [phone] WBC (Leukocytes) 13.9 10*3/uL High 4.4-11.0 [facility] Work Phone: [phone] Lab Report: CBC W/Diff, Auto matedon 04-03-2016 Absolute Neut 4.5 X10 3/UL Invalid Interpretation Code 2.0-7.7 [facility] Work Phone: Basophils/100 WBC Auto (Bld) 0.4 % Invalid Interpretation Code 0-1 [facility] Work Phone: [phone] Eosinophils/100 leukocytes 1.2 % Invalid Interpretation Code 0-5 [facility] Work Phone: [phone] Immature granulocytes/100 WBC (Bld) 0.100 % Invalid Interpretation Code 0.0-0.9 [facility] Work Phone: [phone] Lymphocytes 2.60 X10 3/UL Invalid Interpretation Code 0.83-4.51 [facility] Work Phone: Lymphocytes/100 leukocytes 32.4 % Invalid Interpretation Code 19-41 [facility] Work Phone: [phone] Monocytes/100 leukocytes 9.4 % Invalid Interpretation Code 0-10 [facility] Work Phone: [phone] Neutrophils/100 WBC Auto (Bld) 56.5 % Invalid Interpretation Code 47-70 [facility] Work Phone: Lab Report: Prealbuminon Prealbumin 19.3 mg/dL Low 20.0-40.0 [facility] Work Phone: [phone] Vital Signs Date Time Vital Sign Value Performing Clinician Felipe byrd 10-27-2024 09:41-0400 Body height 167.[address] Eboni Katz MD Work Phone: [facility] 10-27-2024 09:41-0400 Body mass index (BMI) [Ratio] 32.5 kg/m2 Dr. Eboni Katz MD Work Phone: [facility] 10-27-2024 09:41-0400 Body temperature 97.5 [degF] Dr. Eboni Katz MD Work Phone: [facility] 10-27-2024 09:41-0400 Body weight 91.[address] Eboni Katz MD Work Phone: [facility] 10-27-2024 09:41-0400 Diastolic blood pressure 66 mm[Hg] Dr. Eboni Katz MD Work Phone: [facility] 10-27-2024 09:41-0400 Heart rate 66 /min Dr. Eboni Katz MD Work Phone: [facility] 10-27-2024 09:41-0400 Respiratory rate 16 /min Dr. Eboni Katz MD Work Phone: [facility] 10-27-2024 09:41-0400 SaO2% (BldA) [Mass fraction] 95 % Dr. Eboni Katz MD Work Phone: [facility] 10-27-2024 09:41-0400 Systolic blood pressure 112 mm[Hg] Dr. Eboni Katz MD Work Phone: [facility] 07-26-2024 09:08-0400 Body mass index (BMI) [Ratio] 34.3 kg/m2 Dr. Eboni Katz MD Work Phone: [facility] 07-26-2024 09:08-0400 Body temperature 98.2 [degF] Dr. Eboni Katz MD Work Phone: [facility] 07-26-2024 09:08-0400 Body weight 96.[address] Eboni Katz MD Work Phone: [facility] 07-26-2024 09:08-0400 Diastolic blood pressure 68 mm[Hg] Dr. Eboni Katz MD Work Phone: [facility] 07-26-2024 09:08-0400 Heart rate 72 /min Dr. Eboni Katz MD Work Phone: [facility] 07-26-2024 09:08-0400 Respiratory rate 18 /min Dr. Eboni Katz MD Work Phone: [facility] 07-26-2024 09:08-0400 SaO2% (BldA) [Mass fraction] 96 % Dr. Eboni Katz MD Work Phone: [facility] 07-26-2024 09:08-0400 Systolic blood pressure 124 mm[Hg] Dr. Eboni Katz MD Work Phone: [facility] 05-21-2023 10:26-0500 Body temperature 97.2 [degF] Dr. Eboni Katz Work Phone: [facility] 05-21-2023 10:26-0500 Diastolic blood pressure 64 mm[Hg] Dr. Eboni Katz Work Phone: [facility] 05-21-2023 10:26-0500 Heart rate 80 /min Dr. Eboni Katz Work Phone: [facility] 05-21-2023 10:26-0500 Respiratory rate 16 /min Dr. Eboni Katz Work Phone: [facility] 05-21-2023 10:26-0500 SaO2% (BldA) [Mass fraction] 98 % Dr. Eboni Katz Work Phone: [facility] 05-21-2023 10:26-0500 Systolic blood pressure 136 mm[Hg] Dr. Eboni Katz Work Phone: [facility] 05-21-2023 07:37-0500 Body height 167.[address] Eboni Katz Work Phone: [facility] 05-21-2023 07:37-0500 Body mass index (BMI) [Ratio] 33.4 kg/m2 Dr. Eboni Katz Work Phone: [facility] 05-21-2023 07:37-0500 Body weight [address] Eboni Katz Work Phone: [facility] 05-14-2023 08:03-0500 Body height 167.[address] Eboni Katz Work Phone: [facility] 05-14-2023 08:03-0500 Body mass index (BMI) [Ratio] 33.7 kg/m2 Dr. Eboni Kazt Work Phone: [facility] 05-14-2023 08:03-0500 Body temperature 98.4 [degF] Dr. Eboni Katz Work Phone: [facility] 05-14-2023 08:03-0500 Body weight 94.[address] Eboni Katz Work Phone: [facility] 05-14-2023 08:03-0500 Diastolic blood pressure 70 mm[Hg] Dr. Eboni Katz Work Phone: [facility] 05-14-2023 08:03-0500 Heart rate 77 /min Dr. Eboni Katz Work Phone: [facility] 05-14-2023 08:03-0500 Respiratory rate 16 /min Dr. Eboin Katz Work Phone: [facility] 05-14-2023 08:03-0500 SaO2% (BldA) [Mass fraction] 98 % Dr. Eboni Katz Work Phone: [facility] 05-14-2023 08:03-0500 Systolic blood pressure 124 mm[Hg] Dr. Eboni Katz Work Phone: [facility] 05-02-2023 06:51-0500 Body mass index (BMI) [Ratio] 33.7 kg/m2 Dr. Eboni Katz Work Phone: [facility] 05-02-2023 06:51-0500 Body temperature 97.6 [degF] Dr. Eboni Katz Work Phone: [facility] 05-02-2023 06:51-0500 Body weight 94.[address] Eboni Katz Work Phone: [facility] 05-02-2023 06:51-0500 Diastolic blood pressure 62 mm[Hg] Dr. Eboni Katz Work Phone: [facility] 05-02-2023 06:51-0500 Heart rate 70 /min Dr. Eboni Katz Work Phone: [facility] 05-02-2023 06:51-0500 Respiratory rate 16 /min Dr. Eboni Katz Work Phone: [facility] 05-02-2023 06:51-0500 SaO2% (BldA) [Mass fraction] 97 % Dr. Eboni Katz Work Phone: [facility] 05-02-2023 06:51-0500 Systolic blood pressure 150 mm[Hg] Dr. Eboni Katz Work Phone: [facility] 02-10-2023 08:06-0400 Body height 167.[address] Eboni Katz Work Phone: [facility] 02-10-2023 08:06-0400 Body mass index (BMI) [Ratio] 33.4 kg/m2 Dr. Eboni Katz Work Phone: [facility] 02-10-2023 08:06-0400 Body weight 93.[address] Eboni Katz Work Phone: [facility] 02-10-2023 08:06-0400 Diastolic blood pressure 70 mm[Hg] Dr. Eboni Katz Work Phone: [facility] 02-10-2023 08:06-0400 Heart rate 50 /min Dr. Eboni Katz Work Phone: [facility] 02-10-2023 08:06-0400 Respiratory rate 16 /min Dr. Eboni Katz Work Phone: [facility] 02-10-2023 08:06-0400 SaO2% (BldA) [Mass fraction] 99 % Dr. Eboni Katz Work Phone: [facility] 02-10-2023 08:06-0400 Systolic blood pressure 130 mm[Hg] Dr. Eboni Katz Work Phone: [facility] 10-07-2022 08:00-0400 Body height 167.[address] Eboni Katz Work Phone: [facility] 10-07-2022 08:00-0400 Body mass index (BMI) [Ratio] 34.7 kg/m2 Dr. Eboni Katz Work Phone: [facility] 10-07-2022 08:00-0400 Body temperature 96.3 [degF] Dr. Eboni Katz Work Phone: [facility] 10-07-2022 08:00-0400 Body weight 97.[address] Eboni Katz Work Phone: [facility] 10-07-2022 08:00-0400 Diastolic blood pressure 76 mm[Hg] Dr. Eboni Katz Work Phone: [facility] 10-07-2022 08:00-0400 Heart rate 65 /min Dr. Eboni Katz Work Phone: [facility] 10-07-2022 08:00-0400 Respiratory rate 18 /min Dr. Eboni Katz Work Phone: [facility] 10-07-2022 08:00-0400 SaO2% (BldA) [Mass fraction] 99 % Dr. Eboni Katz Work Phone: [facility] 10-07-2022 08:00-0400 Systolic blood pressure 136 mm[Hg] Dr. Eboni Katz Work Phone: [facility] 08-23-2022 09:45-0400 Body temperature 97.3 [degF] Dr. Eboni Katz Work Phone: [facility] 08-23-2022 09:45-0400 Diastolic blood pressure 64 mm[Hg] Dr. Eboni Katz Work Phone: [facility] 08-23-2022 09:45-0400 Heart rate 70 /min Dr. Eboni Katz Work Phone: [facility] 08-23-2022 09:45-0400 Respiratory rate 16 /min Dr. Eboni Katz Work Phone: [facility] 08-23-2022 09:45-0400 SaO2% (BldA) [Mass fraction] 98 % Dr. Eboni Katz Work Phone: [facility] 08-23-2022 09:45-0400 Systolic blood pressure 110 mm[Hg] Dr. Eboni Katz Work Phone: [facility] 08-23-2022 08:10-0400 Body height 167.[address] Eboni Katz Work Phone: [facility] 08-23-2022 08:10-0400 Body mass index (BMI) [Ratio] 34.3 kg/m2 Dr. Eboni Katz Work Phone: [facility] 08-23-2022 08:10-0400 Body weight 96.[address] Eboni Katz Work Phone: [facility] 07-05-2022 08:24-0400 Body mass index (BMI) [Ratio] 35.1 kg/m2 Dr. Eboni Katz Work Phone: [facility] 07-05-2022 08:24-0400 Body temperature 96.4 [degF] Dr. Eboni Katz Work Phone: [facility] 07-05-2022 08:24-0400 Body weight 98.[address] Eboni Katz Work Phone: [facility] 07-05-2022 08:24-0400 Diastolic blood pressure 66 mm[Hg] Dr. Eboni Katz Work Phone: [facility] 07-05-2022 08:24-0400 Heart rate 76 /min Dr. Eboni Katz Work Phone: [facility] 07-05-2022 08:24-0400 Respiratory rate 18 /min Dr. Eboni Katz Work Phone: [facility] 07-05-2022 08:24-0400 SaO2% (BldA) [Mass fraction] 96 % Dr. Eboni Katz Work Phone: [facility] 07-05-2022 08:24-0400 Systolic blood pressure 142 mm[Hg] Dr. Eboni Katz Work Phone: [facility] 06-21-2022 10:41-0500 Body mass index (BMI) [Ratio] 33.9 kg/m2 Dr. Eboni Katz Work Phone: [facility] 06-21-2022 10:41-0500 Body weight 95.[address] Eboni Katz Work Phone: [facility] 09-18-2021 07:54-0400 Body height 167.[address] Eboni Katz Work Phone: [facility] Work Phone: 09-18-2021 07:54-0400 Body mass index (BMI) [Ratio] 34.9 kg/m2 Dr. Eboni Katz Work Phone: [facility] Work Phone: 09-18-2021 07:54-0400 Body temperature 97.2 [degF] Dr. Eboni Katz Work Phone: [facility] Work Phone: 09-18-2021 07:54-0400 Body weight 98.[address] Eboni Katz Work Phone: [facility] Work Phone: 09-18-2021 07:54-0400 Diastolic blood pressure 72 mm[Hg] Dr. Eboni Katz Work Phone: [facility] Work Phone: 09-18-2021 07:54-0400 Heart rate 76 /min Dr. Eboni Ktaz Work Phone: [facility] Work Phone: 09-18-2021 07:54-0400 Respiratory rate 18 /min Dr. Eboni Katz Work Phone: [facility] Work Phone: 09-18-2021 07:54-0400 SaO2% (BldA) [Mass fraction] 99 % Dr. Eboni Katz Work Phone: [facility] Work Phone: 09-18-2021 07:54-0400 Systolic blood pressure 148 mm[Hg] Dr. Eboni Katz Work Phone: [facility] Work Phone: 09-14-2021 08:18-0400 Body mass index (BMI) [Ratio] 34.8 kg/m2 Dr. Eboni Katz Work Phone: [facility] Work Phone: 09-14-2021 08:18-0400 Body weight 97.[address] Eboni Katz Work Phone: [facility] Work Phone: 09-14-2021 08:18-0400 Diastolic blood pressure 72 mm[Hg] Dr. Eboni Katz Work Phone: [facility] Work Phone: 09-14-2021 08:18-0400 Systolic blood pressure 150 mm[Hg] Dr. Eboni Katz Work Phone: [facility] Work Phone: 09-03-2021 08:51-0400 Body height 167.[address] Eboni Katz Work Phone: [facility] Work Phone: 09-03-2021 08:51-0400 Body mass index (BMI) [Ratio] 34.7 kg/m2 Dr. Eboni Katz Work Phone: [facility] Work Phone: 09-03-2021 08:51-0400 Body temperature 96.3 [degF] Dr. Eboni Katz Work Phone: [facility] Work Phone: 09-03-2021 08:51-0400 Body weight 97.[address] Eboni Katz Work Phone: [facility] Work Phone: 09-03-2021 08:51-0400 Diastolic blood pressure 70 mm[Hg] Dr. Eboni Katz Work Phone: [facility] Work Phone: 09-03-2021 08:51-0400 Heart rate 79 /min Dr. Eboni Katz Work Phone: [facility] Work Phone: 09-03-2021 08:51-0400 Respiratory rate 16 /min Dr. Eboni Katz Work Phone: [facility] Work Phone: 09-03-2021 08:51-0400 SaO2% (BldA) [Mass fraction] 98 % Dr. Eboni Katz Work Phone: [facility] Work Phone: 09-03-2021 08:51-0400 Systolic blood pressure 142 mm[Hg] Dr. Eboni Ktaz Work Phone: [facility] Work Phone: 08-08-2021 08:38-0400 Body height 167.[address] Eboni Kazt Work Phone: [facility] Work Phone: 08-08-2021 08:38-0400 Body mass index (BMI) [Ratio] 34.7 kg/m2 Dr. Eboni Katz Work Phone: [facility] Work Phone: 08-08-2021 08:38-0400 Body temperature 97.6 [degF] Dr. Eboni Katz Work Phone: [facility] Work Phone: 08-08-2021 08:38-0400 Body weight 97.[address] Eboni Katz Work Phone: [facility] Work Phone: 08-08-2021 08:38-0400 Diastolic blood pressure 60 mm[Hg] Dr. Eboni Katz Work Phone: [facility] Work Phone: 08-08-2021 08:38-0400 Heart rate 71 /min Dr. Eboni Katz Work Phone: [facility] Work Phone: 08-08-2021 08:38-0400 Respiratory rate 14 /min Dr. Eboni Katz Work Phone: [facility] Work Phone: 08-08-2021 08:38-0400 SaO2% (BldA) [Mass fraction] 98 % Dr. Eboni Katz Work Phone: [facility] Work Phone: 08-08-2021 08:38-0400 Systolic blood pressure 120 mm[Hg] Dr. Eboni Katz Work Phone: [facility] Work Phone: 02-05-2017 08:08-0400 BMI (Body Mass Index) 31.19 kg/m2 [facility] Work Phone: 02-05-2017 08:08-0400 Body Temperature 96.7 [degF] [facility] Work Phone: 02-05-2017 08:08-0400 BP Diastolic 80 mm[Hg] [facility] Work Phone: 02-05-2017 08:08-0400 BP Systolic 132 mm[Hg] [facility] Work Phone: 02-05-2017 08:08-0400 BSA (Body Surface Area) 2.09 m2 [facility] Work Phone: 02-05-2017 08:08-0400 Height 173.99 cm [facility] Work Phone: 02-05-2017 08:08-0400 Pulse (Heart Rate) 79 /min [facility] Work Phone: 02-05-2017 08:08-0400 Respiratory Rate 16 /min [facility] Work Phone: 02-05-2017 08:08-0400 Weight 94.44 kg [facility] Work Phone: Encounters Encounter Date Encounter Type Care Provider Facility Start: 10-28-2024 End: 10-28-2024 Patient encounter procedure Ruby DRUMMOND -[facility] Work Phone: Start: 10-28-2024 End: 10-28-[address] Eboni Katz MD Work Phone: -[facility] Start: 10-27-2024 End: 10-27-[address] Eboni Katz MD -[facility] Work Phone: Start: 10-27-2024 End: 10-27-[address] Eboni Katz MD Work Phone: [facility] Start: 07-26-2024 End: 07-26-[address] Eboni Katz MD [facility] Work Phone: Start: 07-26-2024 End: 07-26-2024 ambulatory [facility] Start: 06-24-2024 End: 06-24-2024 ambulatory [facility] Start: 06-17-2024 End: 06-17-2024 ambulatory [facility] Facility:[facility] Start: 06-11-2024 End: 06-11-2024 ambulatory [facility] Start: 06-03-2024 End: 06-03-2024 ambulatory [facility] Facility:[facility] Start: 06-02-2024 End: 06-02-2024 ambulatory Moustap[facility] Friend Facility:[facility] Start: 04-19-2024 End: 04-19-2024 ambulatory [facility] Start: 04-19-2024 End: 04-19-2024 ambulatory [facility] Facility:[facility] Start: 03-29-2024 End: 03-29-2024 ambulatory [facility] Facility:[facility] Start: 03-02-2024 End: 03-02-2024 ambulatory [facility] Facility:[facility] Start: 02-27-2024 End: 02-27-2024 ambulatory [facility] Start: 02-24-2024 End: 02-24-2024 Emergency department patient visit Alex Hendricks Facility:[facility] Start: 02-23-2024 End: 02-23-2024 [facility] Start: 02-20-2024 End: 02-20-2024 [facility] Start: 01-01-2024 End: 01-01-2024 [facility] Start: 12-10-2023 End: 12-10-2023 [facility] Start: 12-09-2023 End: 12-09-2023 [facility] Start: 12-04-2023 End: 12-04-2023 [facility] Start: 11-19-2023 End: 11-19-2023 [facility] Start: 05-21-2023 Non-patient / Non-visit Dr. Eboni Katz Work Phone: [facility] Start: 05-21-2023 End: 05-21-2023 Admission to same day surgery center Dr. Eboni Katz Work Phone: [facility] Start: 05-21-2023 End: 05-21-[address] Eboni Katz Work Phone: [facility] Work Phone: Start: 05-14-2023 End: 05-14-[address] Eboni Katz Work Phone: [facility] Work Phone: Start: 05-14-2023 End: 05-14-[address] Eboni Katz Work Phone: [facility] Work Phone: Start: 05-02-2023 End: 05-02-[address] Eboni Katz Work Phone: [facility] Work Phone: Start: 04-04-2023 Non-patient / Non-visit Dr. Eboni Katz Work Phone: [facility] Start: 03-28-2023 End: 03-28-[address] Eboni Katz Work Phone: [facility] Work Phone: Start: 03-28-2023 End: 03-28-[address] Eboni Katz Work Phone: [facility] Work Phone: Start: 03-11-2023 End: 03-11-[address] Eboni Katz Work Phone: [facility] Work Phone: Start: 02-10-2023 End: 02-10-[address] Eboni Katz Work Phone: [facility] Work Phone: Start: 10-24-2022 End: 10-24-[address] Eboni Katz Work Phone: [facility] Work Phone: Start: 10-24-2022 End: 10-24-[address] Eboni Katz Work Phone: [facility]Outpatient Breast Imaging Work Phone: Start: 10-07-2022 End: 10-07-2022 Encounter for general adult medical examination without abnormal findings Dr. Eboni Katz Work Phone: [facility] Start: 10-07-2022 End: 10-07-[address] Eboni Katz Work Phone: [facility] Work Phone: Start: 08-23-2022 Non-patient / Non-visit Dr. Eboni Katz Work Phone: [facility] Start: 08-23-2022 End: 08-23-2022 Admission to same day surgery center Dr. Eboni Katz Work Phone: [facility]Endoscopy Start: 08-23-2022 End: 08-23-[address] Eboni Katz Work Phone: [facility] Work Phone: Start: 07-05-2022 End: 07-05-[address] Eboni Katz Work Phone: [facility] Start: 06-21-2022 Non-patient / Non-visit Dr. Eboin Katz Work Phone: [facility] Start: 09-18-2021 End: 09-18-[address] Eboni Katz Work Phone: [facility]-Laboratory, Specimen Start: 09-18-2021 End: 09-18-[address] Eboni Katz Work Phone: [facility] Start: 09-14-2021 End: 09-14-[address] Eboni Katz Work Phone: [facility] Start: 09-03-2021 End: 09-03-[address] Eboni Katz Work Phone: [facility] Start: 08-15-2021 End: 08-15-[address] Eboni Katz Work Phone: [facility]Outpatient Breast Imaging Start: 08-08-2021 End: 08-08-[address] Eboni Katz Work Phone: [facility] Start: 10-06-[address] Eboni Katz Work Phone: [facility] Start: 03-31-2018 Patient encounter procedure [facility]ERON (CALL WORKER PERSON) [facility] Procedures Date Procedure Procedure Detail Performing Clinician Start: 10-27-2024 Vitamin D, 25-hydrox y measurement Dr. Eboni Katz MD Work Phone: Comment on above: Vitamin D StatusDefi ciency: <20 ng/mL (50nmol/L)Insufficiency: 20-30 ng/mL (50-75 nmol/L)Sufficiency: 30-100 ng/mL (75-250 nmol/L)Toxicity: >100 ng/mL (>250 nmol/L) Start: 05-21-[address] lymph node [address] Eboni Katz Work Phone: Start: 03-28-[address] Eboni Katz Work Phone: Start: 10-24-2022 Screening mammography Dhara Katz Work Phone: Start: 08-23-[address] Sharon Katz Work Phone: Start: 08-15-2021 Bilateral mammography Dhara Katz Work Phone: Start: 08-15-[address] Eboni Katz Work Phone: Start: 02-05-2017 End: 02-25-2017 Follow Up Appt [...] Treatment Date Care Activity Detail Author Start: 11-23-2024 ambulatory Ambulatory Facility:[facility] Start: 10-27-2024 CBC W Auto Differential panel - Blood [facility] Start: 10-27-2024 Comprehensive metabolic 2000 panel - Serum or Plasma [facility] Start: 10-27-2024 T4 free measurement [facility] Start: 10-27-2024 Thyroid stimulating hormone measurement [facility] Start: 10-27-2024 Vitamin D, 25-hydroxy measurement [facility] Start: 05-21-2023 Patient discharge [facility] Start: 04-04-2023 Patient referral [facility] Work Phone: Start: 10-07-2022 Patient referral [facility] Work Phone: Start: 08-23-2022 Patient discharge [facility] Start: 09-14-2021 Patient referral [facility] Work Phone: Start: 02-05-2017 End: 02-25-2017 Follow Up Appt 6 weeks Follow Up Appt 6 weeks [facility] Work Phone: Start: 01-06-2017 End: 02-25-2017 Follow Up Appt 1 month Follow Up Appt 1 month [facility] Work Phone: Start: 12-25-2016 End: 02-25-2017 Follow up Appt 1 week Follow up Appt 1 week [facility] Work Phone: Start: 12-25-2016 End: 12-25-2016 OT[facility]Hand Therapy [facility], [address] [place] [address], [id number] [facility] Work Phone: Start: 12-05-2016 End: 12-25-2016 Follow Up Appt Other Follow Up Appt Other [facility] Work Phone: Start: 07-10-2016 End: 07-12-2016 Follow Up Appt 6 months Follow Up Appt 6 months [facility] Work Phone: Start: 06-26-2016 End: 07-12-2016 Follow Up Appt 2 weeks Follow Up Appt 2 weeks [facility] Work Phone: Start: 06-05-2016 End: 07-12-2016 Follow up Appt 3 weeks Follow up Appt 3 weeks [facility] Work Phone: Start: 05-22-2016 End: 07-12-2016 Follow Up Appt 2 weeks Follow Up Appt 2 weeks [facility] Work Phone: Start: 05-08-2016 End: 05-17-2016 Follow Up Appt 2 weeks Follow Up Appt 2 weeks [facility] Work Phone: Start: 04-24-2016 End: 05-17-2016 Follow Up Appt 2 weeks Follow Up Appt 2 weeks [facility] Work Phone: Start: 04-09-2016 End: 05-17-2016 Follow Up Appt 2 weeks Follow Up Appt 2 weeks [facility] Work Phone: Alanine aminotransfe rase [Enzymatic activity/volume] in Serum or Plasma [facility] Albumin [Mass/volume ] in Serum or Plasma [facility] Alkaline phosphatase [Enzymatic activity/volume] in Serum or Plasma [facility] Anion gap in Serum o r Plasma [facility] Bilirubin, total measurement [facility] BUN/Creatinine ratio [facility] Calcium [Mass/volume ] in Serum or Plasma [facility] Carbon dioxide, tota l [Moles/volume] in Central venous blood [facility] CBC W Auto Different ial panel - Blood [facility] Clostridioides diffi cile DNA [Presence] in Unspecified specimen by ELIZABETH with probe detection [facility] Colonoscopy [facility] Creatinine [Mass/vol ume] in Serum or Plasma [facility] Elastase.pancreatic [Presence] in Stool [facility] Erythrocyte mean corpuscular volume determination [facility] Glucose [Mass/volume ] in Serum or Plasma [facility] Hematocrit [Volume Fraction] of Blood [facility] Hemoglobin [Mass/vol ume] in Blood [facility] Hemoglobin A1c/Hemoglobin.total in Blood [facility] Leukocytes [#/volume ] in Blood [facility] Lipid 1996 panel - S marlene or Plasma [facility] Mean corpuscular hem oglobin concentration determination [facility] Mean corpuscular hem oglobin determination [facility] Measurement of occul t blood in stool specimen using immunoassay [facility] Measurement of renal function [facility] Neutrophil count [facility] Neutrophil percent differential count [facility] NM Heart Views W str ess and W radionuclide IV [facility] Nucleic acid assay [facility] Patient Education [facility] Work Phone: Patient referral [facility] Work Phone: Platelets [#/volume] in Blood [facility] Potassium measurement [facility] Protein measurement [facility] Red blood cell count [facility] Red cell distributio n width determination [facility] Serum chloride measurement [facility] Sodium measurement [facility] Total protein measurement [facility] Urea nitrogen [Mass/ volume] in Serum or Plasma [facility] Immunizations Immunization Date Immunization Notes Care Provider Gurwinder larose 05-20-2024 Covid (Isac & Isac) Dr. Eboni Katz MD Work Phone: [facility] 05-20-2024 Seasonal trivalent influenza vaccine, adjuvanted, preservative free Dr. Eboni Katz MD Work Phone: [facility] 02-10-2023 RSV Adult Recombinan t (Arexvy) Dr. Eboni Katz MD Work Phone: [facility] 01-27-2023 Covid (Spikevax) Dr. Lázaro Katz Work Phone: [facility] 01-27-2023 Influenza High-Dose Quadrivalent Dr. Eboni Katz Work Phone: [facility] 01-27-2023 influenza, injectabl e, quadrivalent, preservative free Dr. Eboni Katz MD Work Phone: [facility] 01-27-2023 Pfizer Covid-19 (Comirnaty) Dr. Eboni Katz MD Work Phone: [facility] 01-22-2022 Covid Pfizer Bivalen t Booster Dr. Eboni Katz MD Work Phone: [facility] 01-22-2022 influenza, injectabl e, quadrivalent, preservative free Dr. Eboni Katz MD Work Phone: [facility] 04-02-2021 Covid (Pfizer) Dr. Eboni Katz MD Work Phone: [facility] 07-20-2020 Covid (Pfizer) Dr. Eboni Katz Work Phone: [facility] 06-29-2020 Covid (Pfizer) Dr. Eboni Katz Work Phone: [facility] 02-09-2020 influenza, injectabl e, quadrivalent, preservative free Dr. Eboni Katz MD Work Phone: [facility] 02-16-2019 influenza, injectabl e, quadrivalent, preservative free Dr. Eboni Katz Work Phone: [facility] 02-16-2019 influenza, seasonal, injectable Dr. Eboni Katz Work Phone: [facility] 02-16-2019 Fluad 2018- 65yr up(PF)45 mcg(15 mcgx3)/0.5 mL intramuscular syringe (flu vac Dr. Eboni Katz Work Phone: [facility] Work Phone: 02-19-2016 influenza, high dose seasonal, preservative-free Dr. Eboni Katz MD Work Phone: [facility] 02-12-2016 influenza, injectabl e, quadrivalent, preservative free Dr. Eboni Katz Work Phone: [facility] 02-12-2016 influenza, seasonal, injectable Dr. Eboni Katz Work Phone: [facility] 01-19-2015 influenza, injectabl e, quadrivalent, preservative free Dr. Eboni Katz MD Work Phone: [facility] 11-18-2014 pneumococcal polysaccharide vaccine, [address] Eboni Katz MD Work Phone: [facility] 01-19-2014 influenza, injectabl e, quadrivalent, preservative free Dr. Eboni Katz MD Work Phone: [facility] 02-04-[address] Eboni Katz Work Phone: [facility] 03-30-[address] Kentrell Katz Work Phone: [facility] Work Phone: 03-30-2011 pneumococcal vaccine , unspecified formulation Dr. Eboni Katz Work Phone: [facility] 03-03-2008 influenza, injectabl e, quadrivalent, preservative free Dr. Eboni Katz MD Work Phone: [facility] 06-19-2004 TD(adult) unspecifie d formulation Dr. Eboni Katz MD Work Phone: [facility] 06-24-1990 hepatitis B vaccine, adult dosage Dr. Eboni Katz MD Work Phone: [facility] 12-24-1989 hepatitis B vaccine, adult dosage Dr. Eboni Katz MD Work Phone: [facility] 11-19-1989 hepatitis B vaccine, adult dosage Dr. Eboni Katz MD Work Phone: [facility] 02-19-1989 TD(adult) unspecifie d formulation Dr. Eboni Katz MD Work Phone: [facility] Payers Date Payer Category Payer Private Health Insurance [id number] 2023 Self-pay [id number] 2016 Private Health Insurance [id number] 2011 Medicare [id number] Unknown [id number] 2.16.8 [id number] Unknown [id number] 2.16.8 40.1.730021.3.579.2.462 Unknown [id number] 2.16.8 40.1.209406.3.579.2.462 Unknown [id number] 2.16.8 40.1.736815.3.579.2.462 Unknown [id number] 2.16.8 40.1.458983.3.579.2.462 Unknown [id number] 2.16.8 40.1.071861.3.579.2.462 Unknown [id number] 2.16.8 40.1.717811.3.579.2.462 Unknown [id number] 2.16.8 40.1.703507.3.579.2.462 Unknown [id number] 2.16.8 40.1.897447.3.579.2.462 Unknown [id number] 2.16.8 40.1.048059.3.579.2.462 Unknown [id number] 2.16.8 40.1.400779.3.579.2.462 Unknown [id number] 2.16.8 40.1.672078.3.579.2.462 Unknown [id number] 2.16.8 40.1.802733.3.579.2.462 Unknown [id number] 2.16.8 40.1.897870.3.579.2.462 Unknown [id number] 2.16.8 40.1.270356.3.579.2.462 Unknown [id number] 2.16.8 40.1.550570.3.579.2.462 Unknown [id number] 2.16.8 40.1.007277.3.579.2.462 Unknown [id number] 2.16.8 40.1.600508.3.579.2.462 Unknown [id number] 2.16.8 40.1.824618.3.579.2.462 Unknown [id number] 2.16.8 40.1.723730.3.579.2.462 Unknown [id number] 2.16.8 40.1.465619.3.579.2.462 Unknown [id number] 2.16.8 40.1.351791.3.579.2.462 Unknown [id number] 2.16.8 40.1.296675.3.579.2.462 Unknown [id number] 2.16.8 40.1.676211.3.579.2.462 Unknown [id number] 2.16.8 40.1.941778.3.579.2.462 Social History Date Type Detail Facility Start: 08-08-2021 End: 05-14-2023 Tobacco smoking status NHIS Unknown if ever smoked [facility] Start: 08-08-2021 None [facility] Start: 08-08-2021 Homeless [facility] Start: 10-25-2019 Non-smoker [facility] Start: 1945 Sex Assigned At Female [facility] Start: 03-24-2024 Tobacco smoking status NHIS Never smoked tobacco (finding) [facility] NEGATED: Highlighted row [facility] Medical Equipment Procedure Code Equipment Code Equipment Origin al Text Equipment Identifier Dates Excision, lymph node Ligation clip, metallic [id number] FDA Start: 05-21-2023 asymmetric patella FDA Start: 10-25-2019 cruciate retaini ng femoral FDA Start: 10-25-2019 tibial bearing insert -CS FDA Start: 10-25-2019 tibial component FDA Start: 10-25-2019 asymmetric patella FDA Start: 10-25-2019 cruciate retaini ng femoral FDA Start: 10-25-2019 tibial bearing insert -CS FDA Start: 10-25-2019 tibial component FDA Start: 10-25-2019 asymmetric patella FDA Start: 10-25-2019 cruciate retaini ng femoral FDA Start: 10-25-2019 tibial bearing insert -CS FDA Start: 10-25-2019 tibial component FDA Start: 10-25-2019 asymmetric patella FDA Start: 10-25-2019 cruciate retaini ng femoral FDA Start: 10-25-2019 tibial bearing insert -CS FDA Start: 10-25-2019 tibial component FDA Start: 10-25-2019 asymmetric patella FDA Start: 10-25-2019 cruciate retaini ng femoral FDA Start: 10-25-2019 tibial bearing insert -CS FDA Start: 10-25-2019 tibial component FDA Start: 10-25-2019 asymmetric patella FDA Start: 10-25-2019 cruciate retaini ng femoral FDA Start: 10-25-2019 tibial bearing insert -CS FDA Start: 10-25-2019 tibial component FDA Start: 10-25-2019 asymmetric patella FDA Start: 10-25-2019 cruciate retaini ng femoral FDA Start: 10-25-2019 tibial bearing insert -CS FDA Start: 10-25-2019 tibial component FDA Start: 10-25-2019 asymmetric patella FDA Start: 10-25-2019 cruciate retaini ng femoral FDA Start: 10-25-2019 tibial bearing insert -CS FDA Start: 10-25-2019 tibial component FDA Start: 10-25-2019 asymmetric patella FDA Start: 10-25-2019 cruciate retaini ng femoral FDA Start: 10-25-2019 tibial bearing insert -CS FDA Start: 10-25-2019 tibial component FDA Start: 10-25-2019 asymmetric patella FDA Start: 10-25-2019 cruciate retaini ng femoral FDA Start: 10-25-2019 tibial bearing insert -CS FDA Start: 10-25-2019 tibial component FDA Start: 10-25-2019 asymmetric patella FDA Start: 10-25-2019 cruciate retaini ng femoral FDA Start: 10-25-2019 tibial bearing insert -CS FDA Start: 10-25-2019 tibial component FDA Start: 10-25-2019 Goals Date Patient Goal Desired Activity /State Mental Status Date Assessment Result Facility 05-21-2023 Cognitive function Voice/Name [facility] Work Phone: 08-23-2022 Cognitive function Voice/Name [facility] Work Phone: 08-23-2022 Cognitive function Patient Deven tello Person;Place;Time [facility] Work Phone: Clinical Notes 08-23-2022 to 07-26-2024 Note Date & Type Note Facility 07-26-2024 Evaluation note Diagnosis Onset Date Resolution Borderline type 2 diabetes mellitus chronic July 26 8:57am Hyperlipidemia chronic July 26, 2024 8:57am Hypertension chronic July 26, 2 025 8:57am Restless legs syndrome chronic Ap 2024 8:57am [facility] Work Phone: 1(226) 310-999304-07-2025 Evaluation note* Diagnosis Onset Date Resolution Status Admit Date Borderline type 2 diabetes mellitus chronic July 26, 2024 8:57am Hyperlipidemia chronic July 26, 2024 8:57am Hypertension chronic July 26, 2 025 8:57am Restless legs syndrome chronic 2024 8:57am GI bleed acute October 27, 2024 9:28am Borderline type 2 diabetes mellitus chronic October 27, 2024 9 :28am Dyspnea on exertion chronic October 27, 2024 9:28am Hypertension chronic October 27 9:28am Obstructive sleep apnea chronic J 2024 9:28am Restless leg syndrome chronic Oct 9:28am Abdominal pain acute October 28, 2024 12:45pm Dark stools acute October 28 12:45pm [facility] Work Phone: 1(405) 787-500612-09-2024 [facility] Medical Records Department [address] [place] [id number] History Physical Exam 03/29/24 0743 MR#: [id number] Acct: [id number] Name: GEORGIA RO Rep #: [id number] : 1945 78 From: Moustapha Friend DO PCP: Dr. Eboni Katz MD Status:[facility] Location: [place] [address] History and Physical Date of Admission: 03/29/24 HPI Chief Complaint: +FOBT Details: GEORGIA RO, is a 78 F who presents to the office today for establishment with [facility]. For a month now pt has been having burning esophageal/epigastric pain, nausea and black stools. She saw her PCP who did stool tests which were positive for blood 3x. She has had GERD for a long time and has had an EGD w/ Dr. Wren over 10 years ago which she believes was normal. She presented to the ED .09.11 with the same symptoms and was subsequently discharged home with instruction for f/u with GI. She has been on pantoprazole 40 mg BID and Carafate 1 gram daily for 2 weeks now. SHe is no longer having black stools but continues with pain. Her stools are soft whcih is not typical for her. She denies abdominal pain, constipation, or diarrhea, CT abdomen pelvis 11.5.24; Findings which may be consistent with nonspecific gastritis.. Hyperdense left renal nodule consistent with hemorrhagic cyst unchanged since previous study No evidence for small bowel obstruction or other acute abnormality post hysterectomy and appendectomy ROS Const Constitutional: No fatigue, fever(s) or weight change ENT ENT: Positive for difficulty swallowing Gastro GI: Positive for diarrhea, heartburn, difficulty swallowing and nausea/dyspepsia; No abdominal pain, belching, bloating, change in bowel habits, change in stool character, coffee ground emesis, constipation, cramping, feeling full early, excessive flatus, incontinent of stools, Vomiting blood/hematemesis, Blood in stool, loose stools, Black,tarry stools, pain with swallowing, vomiting or other Musc Musculoskeletal: Positive for muscle cramps, Arthritis and restless legs; No joint pain Skin Skin: No yellowing of the eye or itchy eyes Neuro Neurology: Positive for dizziness and restless legs Psych Psychiatric: No anxiety and No depression Endo Endocrine: No fatigue or weight change Aller/Imm Allergy/Immunologic: No itchy eyes Rodolfo/Lymp Hematologic/Lymphatic: No easy bleeding or easy bruising Exam Const General: cooperative and comfortable Nutritional Appearance: average body habitus and well nourished [facility] Head: normal to inspection Ears: hearing grossly normal bilaterally Nose: external nose normal Face and sinus: normal facial exam Mouth: oral mucosae normal Throat: posterior oropharynx normal Eyes General: appearance normal, both eyes and all related structures Neck Neck: normal visual inspection Chest Chest palpation inspection: normal inspection of the chest and normal palpation of entire chest wall Resp Effort Inspection: normal respiratory effort Auscultation: Bilateral: Clear to Auscultation Cardio Palpation: normal PMI Rate: regular rate Rhythm: regular rhythm GI Inspection: normal to inspection Auscultation: normal bowel sounds Percussion: normal to percussion Palpation: no hepatosplenomegaly Skin General: no rashes or lesions noted Neuro General: patient alert Extrem General: normal to inspection Psych Affect: normal affect Assessment and Plan Assessment and Plan (1) Acute GI bleeding: Status: Acute Plan: This is a 78 yo female pt here today for evaluation of dark stools, epigastric pain and nausea x1 month. CT scan showing thickening in the stomach likely related to gastritis as well as diverticulosis. Her stool was positive for blood on three occasions. Her last hemoglobin was stable at 13.2. I will order repeat CBC for her to have done next week to monitor her hemoglobin. She will continue PPI BID and Carafate daily. She will undergo EGD at the soonest available appointment. We will consider colonoscopy in the future but not at this time as the bleeding it likely in the upper GI tract. I will order stool tests for blood, infection or inflammation as she is having looser stools. -EGD -Continue PPI and Carafate -CBC -Stool test -f/u after procedure Orders: Orders CBC W/Diff, Automated 5 Days K92.2 - Gastrointestinal hemorrhage, unspecified Calprotectin, Stool Today K92.2 - Gastrointestinal hemorrhage, unspecified Stool Occult Blood iFOB Today K92.2 - Gastrointestinal hemorrhage, unspecified Stool Lactoferrin/WBC Today K58.9 - Irritable bowel syndrome, unspecified, K92.2 - Gastrointestinal hemorrhage, unspecified I have examined the patient and the H P has been reviewed. There are no clinical changes since date of exam. 03/29/24 0744 Cosigner Signature (if applicable): CC: Dr. Eboni Allen (more content not included)...[facility] 05-21-2023 History and physical note Author Andre Machado [facility] May 21, 2023 8:02am Note Date/Time May 21, 2023 8 :02am [facility] Medical Records Department [address] [place] [id number] H&P Exam - Surgical 05/21/23 0800 MR#: [id number] Acct: [id number] Name: GEORGIA RO Rep #:[id number] : 1945 77 From: Andre melvin MD PCP: Dr. Eboni Katz MD Status:R [facility] Location: [place] [address] HPI - General HPI Narrative GEORGIA RO, is a 77 F who presents for excisional biopsy of left axillary lymphnode. The patient had lymph node biopsy about a year ago and which was normal. She has been having pain ever since and she had repeat imaging that showed enlargement of her lymph nodes on her left side. [facility] Medical History Actinic keratosis Arthritis Back problem Bilateral lower extremity edema Borderline type 2 diabetes mellitus Cancer of skin of left ear Cat bite of right hand with infection Cataracts, bilateral Chronic hypertension Chronic sinusitis Chronic vertigo Dupuytren's contracture Flu vaccine need Generalized osteoarthritis GERD (gastroesophageal reflux disease) H/O tinnitus Health care maintenance High cholesterol Hyperglycemia Non-smoker Open cat bite of hand Restless leg syndrome Right hand pain Seasonal allergies Shortness of breath Sinusitis Tinnitus Vertigo Wears dentures Wears glasses Wears partial dentures Home Medications multivitamin with iron 1 tab PO DAILY 03/31/13 [History Last Taken 05/20/23] biotin 2,500 mcg capsule 2,500 mcg PO ONCE 07/15/17 [History Last Taken 05/20/23] celecoxib 200 mg capsule (Celebrex) 200 mg PO DAILY PRN pain #90 caps 05/21/21 [Rx Last Taken 05/20/23] aspirin 81 mg capsule 81 mg PO DAILY 09/18/21 [History Last Taken 05/14/23] amlodipine 5 mg tablet 7.5 mg (1.5 x 5 mg) PO DAILY 3 months #135 tabs 06/13/22 [Rx Last Taken 05/21/23] losartan 50 mg tablet 50 mg PO DAILY 3 months #90 tabs 06/13/22 [Rx Last Taken 05/21/23] ropinirole 0.5 mg tablet 0.5 mg PO TID #360 tabs 06/13/22 [Rx Last Taken 05/20/23] hydrochlorothiazide 25 mg tablet See Rx Instructions .Route .COMPLEX #90 tabs 08/29/22 [Rx Last Taken 05/20/23] oxybutynin chloride 10 mg tablet,extended release 24 hr See Rx Instructions .Route .COMPLEX #90 tabs 10/07/22 [Rx Last Taken 05/20/23] potassium chloride 20 mEq tablet,extended release 20 meq PO BID #180 tabs 01/13/23 [Rx Last Taken 05/20/23] Allergy/AdvReac Type Severity Reaction Status Date / Time lisinopril [From Zestril] AdvReac Intermediate Cough Verified 05/21/23 07:35 hydrocodone bitartrate AdvReac Mild Itching Verified 05/21/23 07:35 [From Vicodin] Family History Father Myocardial infarction Heart disease Hypertension Mother Breast cancer Grandmother Breast cancer Sister Lung cancer Seizures Surgical History Cancer of skin of left ear cancer removed Cat bite of right hand including fingers with infection Dupuytren contracture H/O vaginal hysterectomy History of cataract extraction History of colonoscopy History of hysterectomy History of left knee replacement History of lymph node biopsy History of total right knee replacement S/P appendectomy S/P arthroscopy of knee Social History Smoking Status: Never smoker alcohol intake: never substance use type: does not use caffeine: Yes what type of physical activity do you participate in: none seatbelt use: always do you feel safe at home: Yes additional social history: [facility] SUN EXPOSURE: FREQUENTLY ROS Constitutional Constitutional: Denies anorexia, chills or fatigue Eyes Eyes: Denies blurry vision ENT HEENT: Denies abnormal hearing Cardiovascular Cardiovascular: Denies chest pain Respiratory/Chest Respiratory/Chest: Denies cough Gastrointestinal Gastrointestinal: Denies abdominal pain, melena or nausea Genitourinary Genitourinary: Denies change in urinary stream Musculoskeletal Musculoskeletal: Denies abnormal gait Integumentary Integumentary: Denies jaundice Neurologic Neurologic: Denies abnormal gait Vital Signs Vital Signs Vital Signs: 05/21/23 07:37 05/21/23 07:37 Temperature 97.9 F Temperature Source Temporal Pulse Rate 76 Respiratory Rate 17 Respiratory Pattern Normal Blood Pressure 138/65 H Blood Pressure Mean 89 Blood Pressure Source Monitor Blood Pressure Position Semi-Fowlers Blood Pressure Location Left Arm Pulse Ox 100 Oxygen Delivery Method Room Air Weight Weight: 207 lb 3.752 oz Body Mass Index (BMI) 33.4 Physical Exam Const oriented x3 and no apparent distress Resp normal respiratory effort GI soft to palpation and non-tender Assessment & Plan Assessment/Plan (1) Left axillary pain: (2) Lymphadenopathy: PLAN: Plan The patient is having ongoing pain in her left axilla. I performed a left axillary biopsy a long time ago and she has been having pain ever since. I repeated imaging and the ultrasound shows several enlarged lymph nodes in the left axilla. I discussed this with oncology and they recommended excisional biopsy of a lymph node or 2. I discussed this with her in detail. I discussed the risks including but not limited to bleeding, infection, nerve injury, lymphedema, seroma formation. Patient understands all the risks and is willing to proceed. Andre Machado MD Pager: [facility] [address] [place] [address], [address] [place] [address] Office: 05/21/23 0802 <Electronically signed by Andre Machado MD> Cosigner Signature (if applicable): CC: Dr. Andre Machado MD; Dr. Eboni Katz MD~ Signed [facility] Work Phone: 1(149) 686-707001-31-2024 Procedure [facility] 08-23-2022 Procedure [facility]05-05-2023 Procedure [facility] Author Andre Machado [facility] May 21, 2023 9:36am Note Date/Time May 21, 2023 9 :34am [facility] Medical Records Department [address] [place] [id number] Instructions for Home/Discharge Instructions 05/21/2333 MR#: [id number] Acct: [id number] Name: GEORGIA RO Rep #:[id number] : 1945 77 From: Andre melvin MD PCP: Dr. Eboni Katz MD Status:R [facility] Discharge Instructions Diet Discharge Diet: Light diet - advance as tolerated Activity Discharge Activity: Return to Normal Activity, May Drive (in 2-3 days) and May Shower (tomorrow) Lifting Restrictions: 15 lbs for 1 week Dressing / Incision Call your doctor if your incision/area has: Continuous Slow Oozing, Sudden Increased Bleeding, Increased Pain/ Swelling, Increased Redness, Foul Smelling Discharge and Swelling at the incision site Call your doctor if you observe: Fever of 101 or Higher Cleanse incision/area with: Soap & Water Follow Up Care Please Follow Up With: Andre Machado MD When: Please call to schedule 2 week follow up appointment. [phone] Test Results: Test results from this visit will be discussed in further detail at your follow- up appointment, if applicable. Discharge Plan Admission Attending Provider: Andre Machado Primary Care Provider: Eboni Katz Instructions Additional Instructions / Restrictions: Alternate ibuprofen and Tylenol for pain, oxycodone for breakthrough pain. Discharge Orders/Prescriptions Prescriptions: New acetaminophen 325 mg Tablet 650 mg PO Q4H PRN PRN (Reason: Pain Or Fever) Qty: 0 0RF oxycodone 5 mg Tablet 5 - 10 mg PO Q4H PRN PRN (Reason: Pain Score 4-10/10) 5 Days Qty: 15 0RF Continued biotin 2,500 mcg capsule 2,500 mcg PO ONCE aspirin 81 mg capsule 81 mg PO DAILY Patient Comments: ON HOLD FOR SURGERY multivitamin with iron 1 EACH tablet 1 tab PO DAILY Patient Comments: VITAMIN SUPPLEMENT celecoxib [Celebrex] 200 mg capsule 200 mg PO DAILY PRN (Reason: pain) Qty: 90 3RF amlodipine 5 mg tablet 7.5 mg PO DAILY 90 Days Qty: 135 3RF losartan 50 mg tablet 50 mg PO DAILY 90 Days Qty: 90 3RF ropinirole 0.5 mg tablet 0.5 mg PO TID Qty: 360 3RF hydrochlorothiazide 25 mg tablet See Rx Instructions .ROUTE .COMPLEX Qty: 90 3RF Dose Instruction: TAKE 1 TABLET DAILY Rx Instructions: TAKE 1 TABLET DAILY oxybutynin chloride 10 mg tablet extended release 24hr See Rx Instructions .ROUTE .COMPLEX Qty: 90 3RF Dose Instruction: TAKE 1 TABLET DAILY Rx Instructions: TAKE 1 TABLET DAILY potassium chloride 20 mEq tablet extended release 20 meq PO BID Qty: 180 2RF Referrals / Follow Up: Eboni Katz MD [Primary Care Provider] - Disposition Disposition (needs filled in before D/C Order can be placed): Home, Self Care 05/21/23 0936<Electronically signed by Andre Machado MD>Andre Machado MD CC: Dr. Eboni Katz MD ~ Signed [facility] Work Phone: Evaluation noteNo assessment information available [facility] Work Phone: Evaluation note* Diagnosis Onset Date Resolution Status Shortness of breath acute Bilateral lower extremity edema chronic Chronic sinusitis chronic Hypertension chronic [facility] Work Phone: Evaluation note* Diagnosis Onset Date Resolution Status Shortness of breath acute Bilateral lower extremity edema chronic Chronic sinusitis chronic Hypertension chronic Lymphadenopathy acute Lymphadenopathy acute [facility] Work Phone: Evaluation note* Diagnosis Onset Date Resolution Status Sinusitis acute Borderline type 2 diabetes mellitus 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 Hypertension chronic Restless legs syndrome chron ic Encounter for screening for malignant neoplasm of colo n acute [facility] Work Phone: Evaluation note* Diagnosis Onset Date Resolution Status Sinusitis acute Borderline type 2 diabetes mellitus 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's 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 Hypertension chronic Restless legs syndrome chron ic Encounter for screening for malignant neoplasm of colo n acute Health care maintenance acut e Benign essential hypertension chronic Borderline type 2 diabetes mellitus chronic 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's 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 GERD (gastroesophageal reflux disease) chronic [facility] Work Phone: Evaluation note* Diagnosis Onset Date Resolution Status Benign essential hypertension chronic Borderline type 2 diabetes mellitus chronic Restless legs syndrome chron ic Left axillary pain acute [facility] Work Phone: Evaluation note* Diagnosis Onset Date Resolution Status Benign essential hypertension chronic Borderline type 2 diabetes mellitus chronic Restless legs syndrome chron ic Left axillary pain acute Acute sinusitis acute Sinusitis acute Borderline type 2 diabetes mellitus chronic Hypertension chronic Restless leg syndrome chroni c [facility] Work Phone: Evaluation note* Diagnosis Onset Date Resolution Status Benign essential hypertension chronic Borderline type 2 diabetes mellitus chronic Restless legs syndrome chron ic Left axillary pain acute Acute sinusitis acute Sinusitis acute Borderline type 2 diabetes mellitus chronic Hypertension chronic Restless leg syndrome chroni c Left axillary pain acute Lymphadenopathy acute [facility] Work Phone: History and physical note Author Dr. Machado [facility] August 23, 2022 9:07am Note Date/Time August 23, 2022 9:07am [facility] Medical Records Department [address] [place] [address] History & Physical Exam 08/23/22904 MR#: [id number] Acct: [id number] Name: GEORGIA RO Rep #:[id number] : 1945 76 From: Andre melvin MD PCP: Dr. Eboni Katz MD Status:R [facility] Location: [place] [address] HPI - General HPI Narrative GEORGIA RO, is a 76 F who presents for screening colonoscopy. Her last colonoscopy was 10 years ago and was normal. She denies abdominal pain or bloodin the stool or family history of colon cancer. [facility] Medical History (Updated 07/24/22 @ 09:45 by Catherine Knight) Actinic keratosis Arthritis Back problem Bilateral lower extremity edema Borderline type 2 diabetes mellitus Cancer of skin of left ear Cat bite of right hand with infection Cataracts, bilateral Chronic hypertension Chronic sinusitis Chronic vertigo Dupuytren's contracture Flu vaccine need Generalized osteoarthritis GERD (gastroesophageal reflux disease) H/O tinnitus Health care maintenance High cholesterol Hyperglycemia Non-smoker Open cat bite of hand Restless leg syndrome Right hand pain Seasonal allergies Shortness of breath Sinusitis Tinnitus Vertigo Wears dentures Wears glasses Wears partial dentures Home Medications multivitamin with iron 1 tab PO DAILY 03/31/13 [History Last Taken 10/19/19] biotin 2,500 mcg capsule 2,500 mcg PO ONCE 07/15/17 [History Last Taken Unknown] celecoxib 200 mg capsule (Celebrex) 200 mg PO DAILY PRN pain #90 caps 05/21/21 [Rx Last Taken Unknown] aspirin 81 mg capsule 81 mg PO DAILY 09/18/21 [History Last Taken Unknown] oxybutynin chloride 10 mg tablet,extended release 24 hr See Rx Instructions .Route .COMPLEX #90 tabs 10/25/21 [Rx Last Taken Unknown] hydrochlorothiazide 25 mg tablet 25 mg PO DAILY #90 tabs 12/05/21 [Rx Last Taken Unknown] pantoprazole 40 mg tablet,delayed release 40 mg PO DAILY #120 tabs 05/20/22 [Rx Last Taken 08/23/22] amlodipine 5 mg tablet 7.5 mg PO DAILY 3 months #135 tabs 06/13/22 [Rx Last Taken 08/23/22] losartan 50 mg tablet 50 mg PO DAILY 3 months #90 tabs 06/13/22 [Rx Last Taken 08/23/22] potassium chloride 20 mEq tablet,extended release 20 meq PO BID #180 tabs 06/13/22 [Rx Last Taken Unknown] ropinirole 0.5 mg tablet 0.5 mg PO TID #360 tabs 06/13/22 [Rx Last Taken Unknown] Allergy/AdvReac Type Severity Reaction Status Date / Time lisinopril [From Zestril] AdvReac Intermediate Cough Verified 08/23/22 08:09 hydrocodone bitartrate AdvReac Mild Itching Verified 08/23/22 08:09 [From Vicodin] Family History Father Myocardial infarction Heart disease Hypertension Mother Breast cancer Grandmother Breast cancer Sister Lung cancer Seizures Surgical History Cancer of skin of left ear cancer removed Cat bite of right hand including fingers with infection Dupuytren contracture H/O vaginal hysterectomy History of cataract extraction History of colonoscopy History of hysterectomy History of lymph node biopsy History of total right knee replacement S/P appendectomy S/P arthroscopy of knee Social History Smoking Status: Never smoker alcohol intake: never substance use type: does not use caffeine: Yes what type of physical activity do you participate in: none seatbelt use: always do you feel safe at home: Yes additional social history: [facility] SUN EXPOSURE: FREQUENTLY Past Medical/Surgical History Planned Operation Planned Operative Procedure/s: CSCOPE S.O.S: No Previous Hospitalizations/Surgeries HX Hospitalizations: No HX of Surgeries: Hysterectomy appendectomy bilateral bunionectomy Right Knee replacement I&D R HAND 04/05 RELEASE OF DUPUYTREU'S CONTX, EXC LESION L TIP NOSE 2016 Any Problems With Anesthesia: Yes (N/V) You/Your Family Experience Fever (Hyperthermia) With Anes: No Cholinesterase deficiency: No Cardiovascular Hx Chest Pain within Last 2 months: No Hx of Irregular Heartbeat and/or Afib: No Hx Heart Attack: No Hx Congestive Heart Failure: No Hx Rheumatic Fever: No Hx Hypertension: Yes (CONTROLLED WITH MED) Hx Internal Defibrillator: No Hx Pacemaker: No Hx Cardiac Catheterization: No Hx Cardiac Surgery/Stents/Etc.: No Hx Stress Test: Yes (04/02 [facility]) Hx Pain in Legs when Walking/Leg Cramps: Yes Respiratory Chronic Cough: No HX of Shortness of Breath: Yes Hoarseness: No Hx Chronic Obstructive Pulmonary Disease (COPD): No Hx Asthma: No Hx Emphysema: No Hx Sleep Apnea: No CPAP: No BIPAP: No Hx Respiratory Tract Infection/Cold (presently): No Do You Snore Loudly (louder than talking or can be heard): No Do You Often Feel Tired/ Fatigued/ Sleepy Dring Daytime?: No Has Anyone Observed You Stop Breathing During Sleep?: No Result (for STOP score): Negative Hx Smoking: No Smoking Status: Never smoker Gastrointestinal Hx Gastroesophageal Reflux: Yes Controlled With Meds: Yes Hx Gastrointestinal Disorders: Yes (IBS) Hx Gastrointestinal Bleed: No Hx Ulcer: No Hx Hiatal Hernia: No Difficulty Chewing/Swallowing: No Special diet followed at home: No Hx Unplanned Weight Loss of 20#: No HX Unplanned Weight Gain of 20#: No Neurological Hx Seizures: No HX Syncope/Blackout Spells/Unconsciousness: No Hx Transient Ischemic Attacks (TIA): No Hx Multiple Sclerosis: No Hx Parkinson's Disease: No Hx Head/Neck Injury: No Hx Headaches: No Hx Back Injury/Pain: Yes (arthritis L4 from fall) Recent Onset of Speech Difficulty: No Restless Legs: Yes (ON REQUIP) Does patient have nerve stimulator: No Blood Disorder Hx Leukemia: No Bleeding Tendencies: No Hx Deep Vein Thrombosis: No Hx High Cholesterol: No Blood Transmitted Disease: No Hx Hepatitis: No Hx Cirrhosis: No Hx Anemia: No Hx Blood Disorders: No Reproduction : No Is Patient Lactating: No Hx Hysterectomy: No Hx Tubal Ligation: No Are You Post Menopause: Yes Genitourinary Hx Renal Disease: No Hx Dialysis: No Musculoskeletal Hx Arthritis: Yes Hx Rheumatoid Arthritis: No Hx Gout: No Recent Onset of an Orthopedic Problem: No Endocrine Hx Diabetes: No Insulin: No Thyroid Disease: No Hx Steroid Therapy: Yes (CORTISONE INJ L ANKLE) Psycho/Social Hx Substance Use: No Hx Alcohol Use: No Hx Anxiety: Yes Hx Depression: Yes Mental Illness: No Hx Dementia: No Miscellaneous Hx Cancer: Yes (L EAR SKIN CA, MELANOMA) Recent Exposure to Contagious Disease: No Hx of C-Diff: No Any Loose Teeth: Yes (Full upper and lower partial) Allergies lisinopril [From Zestril] Adverse Reaction (Intermediate, Verified 08/23/22 08:09) Cough hydrocodone bitartrate [From Vicodin] Adverse Reaction (Mild, Verified 08/23/22 08:09) Itching Maternal: Family History Father Myocardial infarction Heart disease Hypertension Mother Breast cancer Grandmother Breast cancer Sister Lung cancer Seizures No pertinent history Paternal: Family History Father Myocardial infarction Heart disease Hypertension Mother Breast cancer Grandmother Breast cancer Sister Lung cancer Seizures No pertinent history Discharge Is Pt Admitted From a Snf, or a Fci: No After D/C, Where Do you Plan to Go: Return Home From the PAT History Number of Risk Factors: 5 Vital Signs Vital Signs Vital Signs: 08/23/22 08:10 08/23/22 08:10 Temperature 97.7 F L Temperature Source Temporal Pulse Rate 68 Respiratory Rate 18 Respiratory Pattern Normal Blood Pressure 136/68 H Blood Pressure Mean 90 Blood Pressure Source Monitor Blood Pressure Position Semi-Fowlers Blood Pressure Location Right Arm Oxygen Delivery Method Room Air Weight Weight: 213 lb Body Mass Index (BMI) 34.3 Physical Exam Const alert and oriented x3 HEENT normocephalic Eyes PERRL Resp normal respiratory effort and normal air movement Cardio regular rate and regular rhythm GI soft to palpation, non-tender and non-distended Extremity normal to inspection Assessment & Plan Assessment/Plan (1) Encounter for screening for malignant neoplasm of colon: PLAN: I explained endoscopy in detail to the patient. I explained the risks including but not limited to stroke or heart attack with anesthesia, perforationof the GI tract, bleeding, infection. I explained that any of these could necessitate further emergency surgery. The patient understands and all questions were answered sufficiently. The patient wishes to proceed with procedure. Andre Machado MD Pager: [facility] [address] [place] [address], [address] [place] [address] Office: Surgery Risks - Colonoscopy Risks Include but are not Limited To: Risks include but are not limited to: Bleeding, perforation requiring further surgery, inability to complete colonoscopy requiring barium enema. 08/23/22 0907 <Electronically signed by Andre Machado MD> Cosigner Signature (if applicable): CC: Dr. Andre Machado MD; Dr. Eboni Katz MD~ Signed [facility] Work Phone: Hospital Discharge instructions Additional Instructions Alternate ibuprofen and Tylenol for pain, oxycodone for breakthrough pain. Implant Used?: [facility] Work Phone: Reason for referral (narrative)No reason for [facility] Work Phone: Summary Purpose Family History No Family History Records Found Relationship Condition Age at Onset Recorded Date/T jakub father Myocardial infarction Unknown mother Malignant neoplasm of breast Unknown grandmother Malignant neoplasm of breast Unknown sister Malignant neoplasm of lung Unknown Relationship Condition Age at Onset Recorded Date/T jakub father Myocardial infarction Unknown Cardiac disease Unknown Hypertension Unknown mother Malignant neoplasm of breast Unknown grandmother Malignant neoplasm of breast Unknown sister Malignant neoplasm of lung Unknown Seizure Unknown Advance Directives No Advanced Directives Records Found Advance Directive Response Recorded Date/ Time Advance Directives Yes August 08 8:38am Living Will Yes August 08, 2021 8:38am Power of Referral Manager Yes August 08 8:38am Advance Directive Response Recorded Date/ Time Advance Directives Yes September 14 8:50am Living Will Yes September 14, 2021 8 :50am Power of Referral Manager Yes September 14, 2021 8:50am Advance Directive Response Recorded Date/ Time Name of Medical Power of Referral Manager SPOUSE August 20, 2022 11:48am Advance Directives Yes September 14 8:50am Living Will Yes August 20, 2022 11 :48am Power of Referral Manager Yes August 20, 2022 11:48am Advance Directive Response Recorded Date/ Time Advance Directives Yes September 14 7:50am Living Will Yes August 20, 2022 10 :48am Power of Referral Manager Yes August 20, 2022 10:48am Advance Directive Response Recorded Date/ Time Advance Directives Yes September 14 7:50am Living Will Yes May 01 8:49am Power of Referral Manager Yes May 01, 2023 8:49am Advance Directive Response Recorded Date/ Time Name of Medical Power of Referral Manager May 01, 2023 8:49am Advance Directives Yes September 14 7:50am Living Will Yes May 01 8:49am Power of Referral Manager Yes May 01, 2023 8:49am Advance Directive Response Recorded Date/ Time Advance Directives Yes September 14 8:50am Chief Complaint and Reason for Visit Chief Complaint BREAST COMPLAINTS LUMP LEFT BREAST Chief Complaint BREAST COMPLAINTS LUMP LEFT BREAST Swelling in legs Reason for Visit Shortness of breath Bilateral lower extremity edema Chronic sinusitis Hypertension Chief Complaint BREAST COMPLAINTS LUMP LEFT BREAST Swelling in legs Annual (GENERAL PRACTICE) Enlarged LN left axilla, GENERAL PRACTICE wants bx LEFT AXILLARY LYMPH NODE BIOPSY Reason for Visit Shortness of breath Bilateral lower extremity edema Chronic sinusitis Hypertension Lymphadenopathy Lymphadenopathy Chief Complaint Amb Documentation 3 M FU Reason for Visit Sinusitis Borderline type 2 diabetes mellitus Depression with anxiety Dupuytren's contracture Hypertension Restless legs syndrome Encounter for screening for malignant neoplasm of colon Chief Complaint 3 M FU 3 M FU SCREENING Reason for Visit Sinusitis Borderline type 2 diabetes mellitus Depression with anxiety Dupuytren's contracture Hypertension Restless legs syndrome Encounter for screening for malignant neoplasm of colon Health care maintenance Benign essential hypertension Borderline type 2 diabetes mellitus Dupuytren's contracture GERD (gastroesophageal reflux disease) Chief Complaint 4 M FU DISCUSS PAIN AT BIOPSY SITE PAIN IN UPPER ARM Reason for Visit Benign essential hyp ertension Borderline type 2 diabetes mellitus Restless legs syndrome Left axillary pain Chief Complaint 4 M FU DISCUSS PAIN AT BIOPSY SITE PAIN IN UPPER ARM SINUS CONGESTION 3 m follow up Reason for Visit Benign essential hyp ertension Borderline type 2 diabetes mellitus Restless legs syndrome Left axillary pain Acute sinusitis Sinusitis Borderline type 2 diabetes mellitus Hypertension Restless leg syndrome Chief Complaint 4 M FU DISCUSS PAIN AT BIOPSY SITE PAIN IN UPPER ARM SINUS CONGESTION 3 m follow up Excision,Left Axilla Lymph Node bx Excision,Left Axilla Lymph Node bx Reason for Visit Benign essential hyp ertension Borderline type 2 diabetes mellitus Restless legs syndrome Left axillary pain Acute sinusitis Sinusitis Borderline type 2 diabetes mellitus Hypertension Restless leg syndrome Left axillary pain Lymphadenopathy Chief Complaint Admit Date 3 M FU July 26, 2024 8:57 am 3 m fu October 27, 2024 9:28a m Reason for Visit Admit Date Borderline type 2 diabetes mellitus Apri l 2024 8:57am Hyperlipidemia July 26, 2024 8:57 am Hypertension July 26, 2024 8:57 am Restless legs syndrome July 26, 2024 8 :57am Chief Complaint Admit Date 3 M FU July 26, 2024 8:57 am 3 m fu October 27, 2024 9:28a m FU ABIMBOLA THURSTON October 28, 2024 12:4 5pm Reason for Visit Admit Date Borderline type 2 diabetes mellitus Apri l 2024 8:57am Hyperlipidemia July 26, 2024 8:57 am Hypertension July 26, 2024 8:57 am Restless legs syndrome July 26, 2024 8 :57am GI bleed October 27, 2024 9:28a m Borderline type 2 diabetes mellitus October 27, 2024 9:28am Dyspnea on exertion October 27, 2024 9:28a m Hypertension October 27, 2024 9:28a m Obstructive sleep apnea October 27, 2024 9 :28am Restless leg syndrome October 27, 2024 9:2 8am Abdominal pain October 28, 2024 12:4 5pm Dark stools October 28, 2024 12:4 5pm Additional Source Comments INFORMATION SOURCE (unrecogn ized section and content) DATE CREATED AUTHOR 04/02/2018 [facility] DATE CREATED AUTHOR AUTHOR'S ORGANIZ ATION 04/03/2018 [facility] DATE CREATED AUTHOR AUTHOR'S ORGANIZ ATION 03/15/2019 [facility] DATE CREATED AUTHOR AUTHOR'S ORGANIZ ATION 10/31/2024 [facility] Goals (unrecognized section and content) Goals may be documented in a n alternate sectionGoals may be documented in an alternate sectionGoals may be documented in an alternate sectionGoals may be documented in an alternate sectionGoals may be documented in an alternate sectionGoals may be documented in an alternate sectionGoals may be documented in an alternate sectionGoals may be documented in an alternate section Care Teams (unrecognized sec tion and content) Team Status: Active Member Role Status Dates Dr. Eboni Katz MD Family Provider Active Dr. Eboni Katz MD Primary Care Provider Active Team Status: Inactive Member Role Status Dates Dr. Eboni Katz MD Primary Care Martin singh, Attending Provider, Referring Provider Active Team Status: Active Member Role Status Dates Dr. Eboni Katz MD Primary Care Provider Active Veronica Harris Attending Provider Active Team Status: Active Member Role Status Dates Dr. Eboni Katz MD Primary Care Provider, Refer ring Provider Active Dr. Andre Machado MD Attending Provider, Other Provider Active Team Status: Inactive Member Role Status Dates Dr. Eboni Katz MD Primary Care Provider, Refer ring Provider Active Dr. Andre Machado MD Attending Provider Active Team Status: Inactive Member Role Status Dates Dr. Eboni Katz MD Primary Care Provider Active Dr. Andre Machado MD Attending Provider, Referr ing Provider Active Team Status: Active Member Role Status Dates Dr. Eboni Katz MD Primary Care Provider Active Dr. Andre Machado MD Attending Provider Active Team Status: Inactive Member Role Status Dates Dr. Eboni Katz MD Primary Care Provider, Refer ring Provider Active Julian Riley PA PA Attending Provider Active Team Status: Active Member Role Status Dates Dr. Eboni Katz MD Primary Care Provider Active Dr. Andre Machado MD Attending Pr ovider, Referring Provider, Other Provider Active Team Status: Active Member Role/Relationship Status Dates Dr. Eboni Katz MD Primary Care Provider Active Team Status: Inactive Member Role/Relationship Status Dates Dr. Eboni Katz MD Primary Care Provider Active Start: July 26, 2024 End: July 26, 2024 Dr. Eboni Katz MD Attending Provider Active Start: July 26, 2024 End: July 26, 2024 Dr. Eboni Katz MD Referring Provider Active Start: July 26, 2024 End: July 26, 2024 Team Status: Inactive Member Role/Relationship Status Dates Dr. Eboni Katz MD Primary Care Provider Active Start: October 27, 2024 End: October 27, 2024 Dr. Eboni Katz MD Attending Provider Active Start: October 27, 2024 End: October 27, 2024 Dr. Eboni Katz MD Referring Provider Active Start: October 27, 2024 End: October 27, 2024 Team Status: Active Member Role/Relationship Status Dates Dr. Eboni Katz MD Primary Care Provider Active Start: October 27, 2024 Dr. Eboni Katz MD Attending Provider Active Start: October 27, 2024 Dr. Eboni Katz MD Referring Provider Active Start: October 27, 2024 Team Status: Inactive Member Role/Relationship Status Dates Dr. Eboni Katz MD Primary Care Provider Active Start: October 28, 2024 End: October 28, 2024 Dr. Eboni Katz MD Referring Provider Active Start: October 28, 2024 End: October 28, 2024 BHANU Muñoz Attending Provider Active Start: October 28, 2024 End: October 28, 2024 FOR RECORDS PERTAINING TO PATIENTS WHO ARE [...] BE BASED ON THE PRIMARY CLINICAL RECORDS. [facility] [employer] [facility]. provides no warranty or guarantee of the accuracy or completeness of information in this document.
[2024-11-02 16:09] LABS: Pancreatic Elastase, Fecal 745 (>200)
[2024-11-03 14:08] LABS: Calprotectin, Stool 470 ug/g (0-120)
== END | disposition home or self-care (01) ==
LOC: LABSPEC 07:01
PROVIDERS: PCP Internal Medicine; Referring Provider Student in an Organized Health Care Education/Training Program; Visit Provider Student in an Organized Health Care Education/Training Program
DX: R19.5 Other fecal abnormalities (principal); R10.9 Unspecified abdominal pain
CPT/HCPCS: 82274; 82653; 83993; 87177; 87209; 87329; 87493

== ENCOUNTER → 2024-11-23 | Outpatient (CLI) | payer MEDICARE, SELFPAY ==
--- OUTSIDE RECORDS SUMMARY | 2024-11-23 06:35 | XMS RPT_ITS | CCD ---
Author Organization [facility] Care Team Providers Care Sack Sorter Name Role Phone Brennen Hopper MD Unavailable KAMERON BERNARDO (EDITOR DEPARTMENT) Unavailable Unavailable Dr. Eboni Katz Primary Care Provider [phone] Dr. Eboni Katz Referring Provider [phone] BHANU Hunt Attending Provider Unavailab Dr. Eboni Treviño Attending Provider [phone] Dr. Eva Allen Attending Provider [phone] Dr. Andre Machado Attending Provider [phone] Dr. Eboni Katz Primary Care Provider [phone] Veronica Harris Attending Provider Unavailable Dr. Eboni Katz Attending Provider [phone] Dr. Eboni Katz Referring Provider [phone] Dr. Andre Machado Attending Provider Dr. Andre Machado Other Provider [phone] Dr. Eboni Katz Primary Care Provider [phone] Dr. Eboni Katz Primary Care Provider [phone] Dr. Eboni Katz Attending Provider [phone] Dr. Eboni Katz Referring Provider [phone] Dr. Andre Machado Attending Provider [phone] BHANU Weeks Attending Provider Dr. Andre Machado Referring Provider Dr. Andre Machado Other Provider Gianna OLEARY, Dr. Lyn Primary Care Provider Gianna OLEARY, Dr. Lyn Attending Provider [phone] Gianna OLEARY, Dr. Lyn Referring Provider Ruby Abreu Attending Provider Ruby Abreu Referring Provider Oleghe, Efewongbe Primary Care Unavailable Ruby Parekh Referring Unavailable Ruby Paerkh Attending Unavailable Oleghe, Efewongbe Primary Care Unavailable Ruby Parekh Referring Unavailable Ruby Parekh Attending Unavailable Alex Hendricks Attending Unavailable Oleghe, Efewongbe [...] Referring Unavailable Oleghe, Efewongbe Primary Care Unavailable Friend, Moustapha Attending Unavailable Oleghe, Efewongbe Primary Care Unavailable Ruby Parekh Referring Unavailable Ruby Parekh Attending Unavailable Oleghe, Efewongbe Primary Care Unavailable Isckarus, Mansour Referring Unavailable Isckarus, Mansour Attending Unavailable Oleghe, Efewongbe Primary Care Unavailable Oleghe, Efewongbe Referring Unavailable Oleghe, Efewongbe Attending Unavailable Oleghe, Efewongbe Primary Care Unavailable Friend, Moustapha Attending Unavailable Oleghe, Efewongbe Primary Care Unavailable Oleghe, Efewongbe Referring Unavailable Oleghe, Efewongbe Attending Unavailable Oleghe, Efewongbe Primary Care Unavailable Friend, Moustapha Referring Unavailable Friend, Moustapha Attending Unavailable Oleghe, Efewongbe Primary Care Unavailable Oleghe, Efewongbe Referring Unavailable Ruby Parekh Attending Unavailable Oleghe, Efewongbe Referring Unavailable Oleghe, Efewongbe Primary Care Unavailable Konstantin Saha Attending Unavailable Oleghe, Efewongbe Primary Care Unavailable [...] Primary Care Unavailable Oleghe, Efewongbe Referring Unavailable Konstantin Saha Attending Unavailable Oleghe, Efewongbe Referring Unavailable Oleghe, Efewongbe Primary Care Unavailable Ruby Parekh Attending Unavailable Jaden, Moustapha Consulting Unavailable Oleghe, Efewongbe Primary Care Unavailable Oleghe, Efewongbe Referring Unavailable Friend, Moustapha Attending Unavailable Oleghe, Efewongbe Primary Care Unavailable Oleghe, Efewongbe Referring Unavailable Oleghe, Efewongbe Attending Unavailable Allergies Allergy Classification Reported Allergen(s) Allergy Type Date of Onset Reaction(s) Facility (1 source) acetaminophen / HYDROcodone Drug Allergy 6 red-itchy [facility] Work Phone: (1 source) lisinopril Drug Allergy 6 cough [facility] Work Phone: (1 source) Acetaminophen / HYDROcodone; Translations: [HYDROCODONE-ACET AMINOPHEN] Drug Allergy 5 [facility] Other [place] Repository (15 sources) Lisinopril; Translations: [LISINOPRIL] Drug Allergy 5 [facility], Cough [facility] Repository (1 source) OTHER; Translations: [OTHER] Propensity to adverse reactions (disorder) 6 [facility] Repository (14 sources) HYDROcodone; Translations: [hydrocodone bitartrate] Drug Allergy 2 Itching [facility] Medications Current Medications Medication Drug Class(es) Dates Sig (Normalized) Sig (Original) acetaminophen 325 mg oral tablet (20 sources) Start: 05-21-2023 End: 10-27-2024 take 2 [...] 2019 8:08am biotin 2.5 mg oral capsule (13 sources) Start: 07-15-2017 take 1 capsule by mouth once Biotin 2,500 mcg capsule Active 2500 ug PO ONCE July 15, 2017 12:00am Ipratropium (8 sources) Anticholinergic Start: 09-03-2021 take 1 spray(s) nasal route twice daily Ipratropium [place] Active 2 SPRAY INTRANASAL TWICE A DAY September 03, 2021 9:06am administer into each nostril Start: 09-03-2021 End: 09-25-2021 take 1 spray(s) nasal route twice daily Ipratropium [place] Discontinued 2 SPRAY INTRANASAL TWICE A DAY September 02, 2021 11:00pm September 25, 2021 11:45am administer into each nostril Start: 09-03-2021 End: 09-25-2021 take 1 spray(s) nasal route twice daily Ipratropium [place] Discontinued 2 SPRAY INTRANASAL TWICE A DAY [...] tablet Discontinued 25 mg PO DAILY 90 April 05, 2020 11:03am July 04, 2020 8:20am Start: 09-09-2019 End: 04-05-2020 take 1 tablet by mouth once daily Losartan 50 mg tablet Discontinued 50 mg PO DAILY 30 March 27, 2020 5:19pm April 05, 2020 11:07am Start: 03-16-2019 End: 09-09-2019 take 1 tablet by mouth once daily Losartan 100 mg tablet Discontinued 100 mg PO DAILY 90 March 16, 2019 10:27am September 09, 2019 8:22am Start: 11-06-2018 End: 03-16-2019 Losartan 50 mg tablet Discon tinued 75 mg PO DAILY 90 November 06, 2018 9:19am March 16, 2019 10:29am Start: 11-06-2018 End: 03-16-2019 take 75 mg by mouth once daily Losartan Discontinued 7 5 MG PO DAILY 90 November 06, 2018 8:19am March 16, 2019 9:29am Start: 09-02-2018 End: 11-06-2018 take 1 tablet by mouth once daily Losartan 50 mg tablet Discontinued 50 mg PO DAILY September 02, 2018 12:00am November 06, 2018 9:23am 24 hr metFORMIN hydrochloride 500 mg extended release oral tablet (20 sources) Biguanide Start: 07-27-2024 End: 10-04-2024 take [...] Start: 03-31-2013 take 1 tablet by nannette once daily Multivitamin With Iron Active 1 TABLET PO DAILY March 31, 2013 12:00am Start: 03-31-2013 take 1 tablet by nannette th once daily Multivitamin With Iron Active 1 TABLET PO DAILY March 31, 2013 1:00am Multivitamin With Iron 1 EACH tablet (4 sources) Start: 03-31-2013 take 1 tablet by mouth once daily Multivitamin With Iron 1 EACH tablet Active 1 {tbl} PO DAILY March 31, 2013 1:00am 24 hr oxybutynin chloride 10 mg extended release oral tablet (20 sources) Cholinergic Muscarinic Antagonist Start: 09-06-2024 take 1 tablet by mouth once daily Oxybutynin Chloride 10 mg tablet extended release 24hr Active 10 mg PO daily 90 September 06, 2024 12:00am Start: 07-26-2024 End: [...] 2018 8:52am sucralfate 1000 mg oral tablet (20 sources) Aluminum Complex Start: 10-27-2024 take 1 [...] June 09, 2024 1:21am Start: 02-19-2024 End: 11-14-2024 take 1 tablet by mouth at bedtime [...] times daily as needed for pain OXYCODONE-ACETAMINOPHEN [id number] Brennen Hopper MD Start: 04-05-2016 End: 04-05-2016 Oxycodone-Acetaminophen 1 TA BLET tablet Discontinued 1 - 2 {tbl} PO 4 TIMES DAILY NEEDED as needed for Pain 40 April 05, 2016 5:55pm April 05, 2016 6:08pm Start: 04-05-2016 End: 04-05-2016 take 1 tablet by mouth four times daily as needed Oxycodone-Acetaminophen Discontinued 1 - 2 TABLET PO 4 TIMES DAILY NEEDED April 05, 2016 4:55pm April 05, 2016 5:08pm alcaftadine 2.5 mg/ml ophthalmic solution (11 sources) Start: 09-18-2021 End: 12-05-2021 take 0.25 [...] tablet Discontinued 5 mg PO DAILY 30 2 May 24, 2019 1:00am June 21, 2019 9:41am amoxicillin 875 mg / clavulanate 125 mg oral tablet (19 sources) Penicillin-class Antibacterial Start: 05-02-2023 End: 05-12-2023 Amoxicillin-Pot Clavulanate 875-125 mg tablet Discontinued 1 {tbl} PO Q12H 20 10 0 May 02, 2023 1:00am May 11, 2023 1:00am May 12, 2023 1:04am Acute sinusitis, unspecified Start: 05-02-2023 End: 05-12-2023 take 1 tablet by mouth every twelve hours Amoxicillin-Pot Clavulanate Discontinued 1 TABLET PO Q12H 20 10 May 02, 2023 12:00am May 12, 2023 12:04am Start: 04-05-2016 End: 04-05-2016 Amoxicillin-Pot Clavulanate (Augmentin 875-125 Tablet) 1 EACH tablet Discontinued 1 NMA PO TWICE A DAY 28 2 April 05, 2016 1:00am April 05, 2016 6:07pm Blood-Glucose Meter (Contour Next Ez Meter) kit (4 sources) Start: 07-26-2024 End: 10-27-2024 Blood-Glucose Meter (Contour Next Ez Meter) kit Discontinued 0 .Route 1 3 July 26, 2024 12:00am October 27, 2024 9:38am As directed cefadroxil 500 mg oral capsule (13 sources) Cephalosporin Antibacterial Start: 12-19-2016 End: 07-15-2017 [...] PO DAILY as needed for pain 90 3 May 21, 2021 9:10am September 16, 2023 [...] 2018 6:01pm ciprofloxacin 500 mg oral tablet (13 sources) Quinolone Antimicrobial Start: 05-07-2019 End: 05-24-2019 take 1 tablet by mouth twice daily Ciprofloxacin Hcl 500 mg tablet Discontinued 500 mg PO TWICE A DAY 10 0 May 07, 2019 1:00am May 24, 2019 9:22am daily defense (13 sources) Start: 11-06-2018 End: 01-05-2021 take 1 [...] releas Discontinued 30 mg PO DAILY 90 June 21, 2019 1:53pm April 05, 2020 11:02am diazePAM 2 mg oral tablet (13 sources) Benzodiazepine Start: 03-31-2013 End: 10-01-2018 take [...] propionate 0.05 mg/actuat metered dose nasal spray (13 sources) Corticosteroid Start: 03-31-2013 End: 07-15-2017 Fluticasone Propionate 1 SPRAY spray,suspension Discontinued 50 ug NASAL DAILY NEEDED as needed for Allergies March 31, 2013 1:00am July 15, 2017 9:15am gabapentin 100 mg oral capsule (4 sources) Anti-epileptic Agent Start: 05-22-2016 End: 06-26-2016 take 1 tablet by mouth three times daily NEURONTIN 100 MG CAPS One tablet by mouth three times daily GABAPENTIN [id number] Brennen Hopper MD Start: 04-24-2016 End: 06-26-2016 take 1 tablet by mouth twice daily NEURONTIN 100 MG CAPS One tablet by mouth twice daily GABAPENTIN [id number] Ameena Pereira LPN Gauze Bandage (9 sources) [...] Gauze Bandage (Rolled Gauze) 1 EACH Bandage (13 sources) Start: 04-05-2016 End: 04-05-2016 Gauze Bandage [...] and S61.401A. Gauze Bandage 1 EACH Bandage (4 sources) Start: 04-05-2016 End: 04-05-2016 Gauze Bandage 1 EACH Bandage Discontinued 1 NMA TP DAILY 30 2 April 05, 2016 1:00am April 05, 2016 [...] TABS One tablet by mouth daily HYDROCHLOROTHIAZIDE [id number] Archana Barraza imiquimod 50 mg/ml topical cream (1 source) Start: 01-06-2017 ALDARA 5 % CRE A apply daily at night 5 days per week for 6 weeks IMIQUIMOD [id number] Brennen Hopper MD Ipratropium [place] 21 mcg (0.03 %) spray,non-aerosol (4 sources) Start: 09-03-2021 End: 06-07-2022 Ipratropium [place] 21 mcg (0.03 %) spray,non-aerosol Discontinued 2 NMA INTRANASAL TWICE A DAY as needed for allergy symptoms/ Sinus symptoms 30 September 03, 2021 12:00am September 25, 2021 12:45pm administer into each nostril lactobacillus acidophilus [id number] unt / pectin 100 mg oral tablet (20 sources) Start: 12-19-2016 End: 07-15-2017 take 1 tablet by mouth twice daily Acidophilus-Pectin, [place] 1 EACH tablet Discontinued 1 NMA PO TWICE A DAY 10 December 19, 2016 12:00am July 15, 2017 9:15am Start: 12-19-2016 End: 07-15-2017 Acidophilus-Pectin, [place] D iscontinued 1 EACH PO TWICE A DAY December 18, 2016 11:00pm July 15, 2017 8:15am Start: 04-05-2016 End: 04-05-2016 take 1 tablet by mouth twice daily Acidophilus-Pectin, [place] 1 EACH tablet Discontinued 1 NMA PO TWICE A DAY 30 April 05, 2016 1:00am April 05, 2016 6:07pm Start: 04-05-2016 End: 04-05-2016 Acidophilus-Pectin, [place] D iscontinued 1 EACH PO TWICE A DAY 30 April 05, 2016 12:00am April 05, 2016 5:07pm Magnesium (13 sources) Start: 02-16-2019 End: 09-09-2019 take 250 [...] 8:22am meclizine hydrochloride 25 mg chewable tablet (13 sources) Antiemetic Start: 03-31-2013 End: 10-01-2018 take 1 tablet by mouth three times daily as needed for dizziness Meclizine 25 MG tablet,chewable Discontinued 25 mg PO THREE TIMES A DAY as needed for Dizziness March 31, 2013 1:00am October 01, 2018 6:03pm nitrofurantoin, macrocrystals 25 mg / nitrofurantoin, monohydrate 75 mg oral capsule (13 sources) Nitrofuran Antibacterial Start: 03-04-2019 End: 03-11-2019 [...] 3:27pm oxyCODONE hydrochloride 5 mg oral tablet (18 sources) Opioid Agonist Start: 05-21-2023 End: 06-09-2023 [...] release Discontinued 20 meq PO DAILY 90 November 06, 2018 9:22am August 19, 2019 1:17pm Start: 03-31-2013 End: 08-19-2019 take 20 mEq by mouth once daily Potassium Chloride Dis continued 20 MEQ PO DAILY 90 November 06, 2018 8:22am August 19, 2019 12:17pm pravastatin sodium 40 mg oral tablet (13 sources) HMG-CoA Reductase Inhibitor Start: 03-31-2013 End: 09-02-2018 Pravastatin 40 MG tablet Discontinued 20 mg PO AT BEDTIME March 31, 2013 1:00am September 02, 2018 10:40am Start: 03-31-2013 End: 09-02-2018 take 20 mg by mouth at bedtime Pravastatin Discontinue d 20 MG PO AT BEDTIME March 31, 2013 12:00am September 02, 2018 9:40am predniSONE 20 mg oral tablet (6 sources) Start: 05-14-2023 End: 05-21-2023 take 2 [...] MG TABS 3 times daily ROPINIROLE HCL [id number] Archana Barraza Semaglutide (4 sources) Start: 07-26-2024 End: 10-27-2024 Semaglutide (Ozempic) 0.25 m g or 0.5 mg (2 mg/3 mL) pen injector Discontinued 0.25 mg SC EVERY WEEK 3 July 26, 2024 12:00am October 27, 2024 9:38am for 4 weeks Silver-Hydrocolloid Dressing (Aquacel-Ag W-Hydrofiber Dress) 1 EACH Bandage (13 sources) Start: 04-05-2016 End: 04-05-2016 Silver-Hydrocolloid Dressing [...] TABS 1 tab pm SOLIFENACIN SUCCINATE TABS [id number] Archana Barraza valsartan 160 mg oral tablet (14 sources) Angiotensin 2 Receptor Medardo Start: 3 End: 9 take 1 tablet by mouth once daily Valsartan 160 MG tablet Discontinued 160 mg PO DAILY March 31, 2013 1:00am September 02, 2018 10:40am Vibegron (4 sources) Start: 4 End: 5 take 1 tablet by mouth once daily Vibegron (Gemtesa) 75 mg tablet Discontinued 75 mg PO DAILY March 24, 2024 1:00am July 26, 2024 9:05am Vonoprazan (Voquezna) 10 mg tablet (8 sources) Start: 5 End: 5 take 1 tablet by mouth once daily Vonoprazan (Voquezna) 10 mg tablet Discontinued 10 mg PO daily June 11, 2024 1:02pm July 26, 2024 9:05am Start: 06-11-2024 End: 06-11-2024 take 1 tablet by mouth once daily Vonoprazan (Voquezna) 10 mg tablet Discontinued 10 mg PO daily June 11, 2024 1:00am June 11, 2024 1:02pm Problems Active Problems Problem Classification Problem Date Documented Da te Episodic/Chronic Abdominal pain (14 sources) Left lower quadrant pain; Translations: [Left lower quadrant pain] Onset: 4 11-19-2023 Episodic Anxiety disorders (15 sources) Mixed anxiety and depressive disorder; Translations: [Other specified anxiety disorders] 02-16-2019 Chronic Cataract (13 sources) Bilateral cataracts; Translations: [Unspecified cataract] 10-25-2019 Chronic Conditions associated with dizziness or vertigo (20 sources) Vertigo; Translations: [Dizziness and giddiness] 10-01-2018 Episodic Diabetes mellitus without complication (20 sources) Hyperglycemia; Translations: [Hyperglycemia, unspecified] Onset: 5 03-22-2022 Episodic Disorders of lipid metabolism (20 sources) Hypercholesterolemia; Translations: [Pure hypercholesterolemia, unspecified] Onset: 5 10-01-2018 Chronic E Codes: Natural/environment (13 sources) Cat bite - wound; Translations: [Bitten by cat, initial encounter] 04-02-2016 Episodic Comment on above: W55.01xAcat bite inf ection dorsum right hand at MP joint index finger with surrounding cellulitis extending onto index finger and onto distal dorsal forearm Esophageal disorders (11 sources) Gastroesophageal reflux disease; Translations: [Gastro-esophageal reflux disease without esophagitis] Onset: 4 04-08-2022 Chronic Essential hypertension (20 sources) Benign essential hypertension; Translations: [Essential (primary) hypertension] Onset: 5 Chronic External Injury - Natural / Environment (2 sources) Bitten by cat, subsequent encounter; Translations: [Bitten by cat, initial encounter] Onset: 6 05-08-2016 Immunizations and screening for infectious disease (13 sources) Needs influenza immunization; Translations: [Encounter for immunization] 01-05-2021 Episodic Lymphadenitis (16 sources) Lymphadenopathy; Translations: [Generalized enlarged lymph nodes] Episodic Comment on above: left axillary 3.5 x 2.1 cm, 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 cbc ordered Non-Hodgkin`s lymphoma (6 sources) Malignant lymphoma - small lymphocytic; Translations: [...] Chronic Other bone disease and musculoskeletal deformities (4 sources) Osteopenia; Translations: [Other specified disorders of bone density and structure, unspecified site] 10-27-2024 Episodic Other bone disease and musculoskeletal deformities (1 source) Other specified disorders of bone density and structure, unspecified site; Translations: [Other specified disorders of bone density and structure, unspecified site] Onset: 5 Episodic Other connective tissue disease (18 sources) Dupuytren's contracture ; Translations: [Palmar fascial fibromatosis [Dupuytren]] Onset: 7 05-17-2016 Episodic Other connective tissue disease (9 sources) Hand pain; Translations: [Pain in right hand] 04-08-2022 Episodic Other connective tissue disease (7 sources) Pain in axilla; Translations: [Pain in left upper arm] 03-11-2023 Episodic Other connective tissue disease (4 sources) Pain in left upper arm; Translations: [Pain in limb] 03-11-2023 Episodic Other diseases of kidney and ureters (4 sources) Renal mass; Translations: [Other specified disorders of kidney and ureter] 12-08-2023 Chronic Other ear and sense organ disorders (13 sources) Tinnitus; Translations: [Tinnitus, unspecified ear] 10-06-2020 Episodic Other gastrointestinal disorders (7 sources) Dark stools; Translations: [Other fecal abnormalities] 02-19-2024 Episodic Other gastrointestinal disorders (4 sources) Constipation; Translations: [Constipation, unspecified] 06-11-2024 Episodic Other gastrointestinal disorders (1 source) Other fecal abnormalities; Translations: [Other fecal abnormalities] Onset: 5 Episodic Other hereditary and degenerative nervous system conditions (20 sources) Restless legs; Translations: [Restless legs syndrome] 10-01-2018 Chronic Other hereditary and degenerative nervous system conditions (7 sources) Restless legs syndrome; Translations: [Restless legs syndrome (RLS)] 07-05-2022 Chronic Other lower respiratory disease (12 sources) Dyspnea; Translations: [Shortness of breath] 09-03-2021 Episodic Other lower respiratory disease (3 sources) Shortness of breath; Translations: [Shortness of breath] Episodic Other lower respiratory disease (7 sources) Dyspnea on exertion; Translations: [Other forms of dyspnea] 10-27-2024 Episodic Other lower respiratory disease (2 sources) Other forms of dyspnea; Translations: [Other forms of dyspnea] Onset: Episodic Other nervous system disorders (13 sources) H/O: hearing problem; Translations: [Personal history [...] Episodic Other nutritional; endocrine; and metabolic disorders (4 sources) Body mass index 30+ - obesity; [...] sinusitis, unspecified] Chronic Other upper respiratory infections (8 sources) Acute sinusitis; Translations: [Acute sinusitis, unspecified] 05-02-2023 Episodic Residual codes; unclassified (16 sources) Obstructive sleep apnea syndrome; Translations: [Obstructive sleep apnea (adult) (pediatric)] 12-11-2018 Chronic Residual codes; unclassified (12 sources) Bilateral lower limb edema; Translations: [Localized edema] 09-03-2021 Episodic Residual codes; unclassified (3 sources) Localized edema; Translations: [Edema] Episodic Residual codes; unclassified (9 sources) Past history of procedure; Translations: [Other specified postprocedural states] 12-05-2021 Episodic Skin and subcutaneous tissue infections (14 sources) Cellulitis of hand; Translations: [Cellulitis of right upper limb] Onset: 6 04-22-2016 Episodic Comment on above: L03.113cat bite infe ction dorsum right hand at MP joint index finger with surrounding cellulitis extending onto index finger and onto distal dorsal forearm Spondylosis; intervertebral disc disorders; other back problems (13 sources) Back problem; Translations: [Dorsopathy, unspecified] 10-25-2019 Episodic Unclassified (1 source) Aftercare ; Translations: [Encounter for other specified surgical aftercare] Onset: 6 04-22-2016 Past or Other Problems Problem Classification Problem Date Documented Da te Episodic/Chronic Gastrointestinal hemorrhage (12 sources) Gastrointestinal hemorrhage; Translations: [Gastrointestinal hemorrhage, unspecified] [...] conditions (not mental disorders or infectious disease) (17 sources) Patient encounter status; Translations: [Encounter for screening for malignant neoplasm of colon] Onset: 4 06-21-2022 Episodic Residual codes; unclassified (1 source) Asymptomatic menopausal state; Translations: [Asymptomatic menopausal state] Onset: 4 Episodic Unclassified (9 sources) cancer removed 11-07-2021 Comment on above: left ear and nose 20 15 Results Test Name Value Interpretation Reference Range Facility [id number] 11-06-2024 [facility] Comment on above: Order Comment: [id number] 4STOOL CULTURE Result Comment: TEST RESULTS LIMITS Stool Culture Salmonella/Shigella Screen Final report Result 1 No Salmonella or Shigella recovered. Campylobacter Culture Final report Result 1 No Campylobacter species isolated. E coli Shiga Toxin EIA Negative TESTING PERFORMED AT [facility]. ORIGINAL REPORT ON FILE IN LAB CONTAINS ADDITIONAL TEST SITE INFORMATION. Performed By: #### M 7400.3302, M100.7900, L100.0100, L3410.9992, M100.6796, M600.5000, L7000.0750, L7000.0700 ####[facility] [id number] [facility] [place], [place], [address] [id number] 11-06-2024 M7400.3302 ___ TESTING PERFORMED AT [facility]. ORIGINAL REPORT ON FILE IN LAB CONTAINS ADDITIONAL TEST SITE INFORMATION. Giardia Lamblia EIA NEGATIVE Normal [facility] Comment on above: Performed By: #### M 7400.3302, M100.7900, L100.0100, L3410.9992, M100.6796, M600.5000, L7000.0750, L7000.0700 ####[facility] [id number] [facility] [place], [place], [address] Ova and Parasites 8623on OP OVA AND PARASITES EX AM, ROUTINE These results were obtained using wet preparation(s) and trichrome stained smear. This test does not include testing for Crytosporidium parvum, Cyclospora, or Microsporidia. One negative specimen does not rule out the possibility of a parasitic infection. TESTING PERFORMED AT [facility]. ORIGINAL REPORT ON FILE IN LAB CONTAINS ADDITIONAL TEST SITE INFORMATION. Ova/Parasite Exam NO OVA, CYSTS, OR PARASITES FOUND. Normal [facility] Comment on above: Performed By: #### M 7400.3302, M100.7900, L100.0100, L3410.9992, M100.6796, M600.5000, L7000.0750, L7000.0700 ####[facility] [id number] [place], [address] Calprotectin, Stoolon [address] 470 ug/g Abnormal 0-120 [facility] Comment on above: Result Comment: Conc entration Interpretation Follow-Up < 5 - 50 ug/g Normal None >50 -120 ug/g Borderline Re-evaluate in 4-6 weeks >120 ug/g Abnormal Repeat as clinically indicated Performed at: [address] [id number] Travel Director: Hattie Hill MD, Phone: [phone] Performed By: #### M 7400.3302, M100.7900, L100.0100, L3410.9992, M100.6796, M600.5000, L7000.0750, L7000.0700 ####[facility] [id number] [place], [place], [id number] L7000.0750on 11-02-2024 P ELASTASE,FECA 745 Normal >200 [facility] Comment on above: Result Comment: Resu lt Units: ug Elast./g Severe Pancreatic Insufficiency: <100 Moderate Pancreatic Insufficiency: 100 - 200 Normal: >200 Performed at: [facility] [id number] [place], [place] [id number] Travel Director: Hattie Hill MD, Phone: [phone] Performed By: #### M 7400.3302, M100.7900, L100.0100, L3410.9992, M100.6796, M600.5000, L7000.0750, L7000.0700 ####[facility] [id number] [place], [address] CBC W/Diff, Automatedon 10-19 Absolute Neut Normal 2.0-7.7 [facility] Comment on above: Result Comment: NO B LOOD WAS OBTAINED Performed By: #### M 7400.3302, M100.7900, L100.0100, L3410.9992, M100.6796, M600.5000, L7000.0750, L7000.0700 ####[facility] [address] [place], [place], [address](501) HCT Normal 37-47 [facility] Comment on above: Result Comment: NO B LOOD WAS OBTAINED Performed By: #### M 7400.3302, M100.7900, L100.0100, L3410.9992, M100.6796, M600.5000, L7000.0750, L7000.0700 ####[facility] [address] [place], [address] HGB Normal 12.0-15.0 [facility] Comment on above: Result Comment: NO B LOOD WAS OBTAINED Performed By: #### M 7400.3302, M100.7900, L100.0100, L3410.9992, M100.6796, M600.5000, L7000.0750, L7000.0700 ####[facility] [address] [place], [address] MCH Normal 27.0-32.0 [facility] Comment on above: Result Comment: NO B LOOD WAS OBTAINED Performed By: #### M 7400.3302, M100.7900, L100.0100, L3410.9992, M100.6796, M600.5000, L7000.0750, L7000.0700 ####[facility] [address] [place], [address] MCHC Normal 32-36 [facility] Comment on above: Result Comment: NO B LOOD WAS OBTAINED Performed By: #### M 7400.3302, M100.7900, L100.0100, L3410.9992, M100.6796, M600.5000, L7000.0750, L7000.0700 ####[facility] [address] [place], [address] MCV Normal 81-99 [facility] Comment on above: Result Comment: NO B LOOD WAS OBTAINED Performed By: #### M 7400.3302, M100.7900, L100.0100, L3410.9992, M100.6796, M600.5000, L7000.0750, L7000.0700 ####[facility] [address] [place], [address] NEUT% Normal 47-70 [facility] Comment on above: Result Comment: NO B LOOD WAS OBTAINED Performed By: #### M 7400.3302, M100.7900, L100.0100, L3410.9992, M100.6796, M600.5000, L7000.0750, L7000.0700 ####[facility] [address] [place], [address] PLT Normal 150-450 [facility] Comment on above: Result Comment: NO B LOOD WAS OBTAINED Performed By: #### M 7400.3302, M100.7900, L100.0100, L3410.9992, M100.6796, M600.5000, L7000.0750, L7000.0700 ####[facility] [address] [place], [address] RBC Normal 4.2-5.4 [facility] Comment on above: Result Comment: NO B LOOD WAS OBTAINED Performed By: #### M 7400.3302, M100.7900, L100.0100, L3410.9992, M100.6796, M600.5000, L7000.0750, L7000.0700 ####[facility] [address] [place], [address] RDW CV Normal 11.6-14.6 [facility] Comment on above: Result Comment: NO B LOOD WAS OBTAINED Performed By: #### M 7400.3302, M100.7900, L100.0100, L3410.9992, M100.6796, M600.5000, L7000.0750, L7000.0700 ####[facility] [address] [place], [address] RDW SD Normal 35.1-43.9 [facility] Comment on above: Result Comment: NO B LOOD WAS OBTAINED Performed By: #### M 7400.3302, M100.7900, L100.0100, L3410.9992, M100.6796, M600.5000, L7000.0750, L7000.0700 ####[facility] [address] [place], [address] WBC Normal 4.4-11.0 [facility] Comment on above: Result Comment: NO B LOOD WAS OBTAINED Performed By: #### M 7400.3302, M100.7900, L100.0100, L3410.9992, M100.6796, M600.5000, L7000.0750, L7000.0700 ####[facility] [address] [place], [address] CDIFF (PCR)on 11-01-2024 CDIFF Pending [phone] NAP1-B1 Presumptive Negative *for epidemiolologic???use C. Diff PCR Negative- No toxigenic C. Diff Detected Normal [facility] Comment on above: Performed By: #### M 7400.3302, M100.7900, L100.0100, L3410.9992, M100.6796, M600.5000, L7000.0750, L7000.0700 ####[facility] [address] [place], [place], [id number] Calprotectin stoolOrdered By : Ruby Parekh on 11-01-2024 Calprotectin stool 470 ug/g High 0-120 [facility] Comment on above: Concentration Interp retation Follow-Up< 5 - 50 ug/g Normal None>50 -120 ug/g Borderline Re-evaluate in 4-6 weeks >120 ug/g Abnormal Repeat as clinically indicatedPerformed at: [facility] [address] [id number] Director: Hattie Hill MD, Phone: [phone] Clostridium difficile detect ion by polymerase chain reactionOrdered By: Ruby Parekh on 11-01-2024 C. difficile DNA ELIZABETH+probe Ql (Unsp spec) [facility] Stool Occult Blood iFOBon STOB Positive Normal [facility] Comment on above: Performed By: #### M 7400.3302, M100.7900, L100.0100, L3410.9992, M100.6796, M600.5000, L7000.0750, L7000.0700 ####[facility] [address] [place], [address] Stool gastrointestinal hemog lobin detection by immunologic methodOrdered By: Ruby Parekh on 11-01-2024 Lower GI hemoglobin IA Ql (Stl) Positive Abnormal [facility] Stool pancreatic elastase me asurement (mass/mass)Ordered By: Ruby Parekh on 11-01-2024 Elastase.pancreatic (Stl) [Mass/Mass] 745 >200 [facility] Comment on above: Result Units: ug Miranda st./g Severe Pancreatic Insufficiency: <100 Moderate Pancreatic Insufficiency: 100 - 200 Normal: >200Performed at: - [address] [id number] Director: Hattie Hill MD, Phone: [phone] Gastroenterology Visit Repor ton 10-28-2024 Gastroenterology Visit Report [facility] [address] [place] [address] OFFICE VISIT Date of Service: 10/28/24 MR#: [id number] Acct: [id number] Name: GEORGIA RO Rep #: [id number] : 1945 Provider: BHANU Muñoz Age/Sex: 79/F [place] [facility] [place] Status: Signed Intake Vital Signs 10/27/24 09:41 [...] the first portion of the duodenum. Biopsied. *06.02.24 office contacted due to black stools and continued pain. CBC wnl, KUB showing constipation, FOBT negative OV 2.21.25; Pt continues to have daily burning epigastric [...] being par (more content not included)... Normal [facility] Absolute lymphocyte countOrd ered By: Eboni Katz on 10-27-2024 Lymphocytes Auto (Unsp spec) [#/Vol] 2.39 10*3/uL 0.83-4.51 [facility] Absolute neutrophil countOrd ered By: Eboni Katz on 10-27-2024 Neutrophils (Bld) [#/Vol] 3.9 10*3/uL 2.0-7.7 [facility] Anion gap in Serum or Plasma Ordered By: Eboni Katz on 10-27-2024 Anion gap [Moles/Vol] 13 mmol/L 5-15 [facility] Automated lymphocyte count a s percentage of total leukocytesOrdered By: Eboni Katz on 10-27-2024 Lymphocytes/100 WBC Auto (Unsp spec) 33.1 % 19-41 [facility] BUN/creatinine ratioOrdered By: Eboni Katz on 10-27-2024 Urea nitrogen/Creatinine [Mass ratio] 17.3 mg/mg 10-20 [facility] Basophil percentageOrdered B y: Eboni Katz on 10-27-2024 Basophils/100 WBC (Bld) 0.8 % 0-1 [facility] Bilirubin, totalOrdered By: Eboni Katz on 10-27-2024 Bilirubin [Mass/Vol] 0.65 mg/dL 0.00-1.30 [facility] CBC W/Diff, Automatedon Absolute Lymph 2.39 X10 3/uL Normal 0.83-4.51 [facility] Comment on above: Performed By: #### L 501.9520, L500.4050, L506.1001, L100.0100, L506.0400 #### [facility] [address] [place], [address] Absolute Neut 3.9 X10 3/uL Normal 2.0-7.7 [facility] Comment on above: Performed By: #### L 501.9520, L500.4050, L506.1001, L100.0100, L506.0400 #### [facility] [address] [place], [address] Basophils/100 WBC (Bld) 0.8 % Normal 0-1 [facility] Comment on above: Performed By: #### L 501.9520, L500.4050, L506.1001, L100.0100, L506.0400 #### [facility] [address] [place], [address] Eosinophils/100 WBC (Bld) 1.9 % Normal 0-5 [facility] Comment on above: Performed By: #### L 501.9520, L500.4050, L506.1001, L100.0100, L506.0400 #### [facility] [address] [place], [address] Erythrocyte distribution width (RBC) [Ratio] 13.6 % Normal 11.6-14.6 [facility] Comment on above: Performed By: #### L 501.9520, L500.4050, L506.1001, L100.0100, L506.0400 #### [facility] [address] [place], [address] Hematocrit (Bld) [Volume fraction] 41.9 % Normal 37-47 [facility] Comment on above: Performed By: #### L 501.9520, L500.4050, L506.1001, L100.0100, L506.0400 #### [facility] [address] [place], [address] Hemoglobin (Bld) [Mass/Vol] 13.7 g/dL Normal 12.0-15.0 [facility] Comment on above: Performed By: #### L 501.9520, L500.4050, L506.1001, L100.0100, L506.0400 #### [facility] [address] [place], [address] IG% 0.300 Normal 0.0-0.9 [facility] Comment on above: Result Comment: IG% - Immature Granulocytes (promyelocytes, myelocytes and metamyelocytes) > 1% indicates that a LEFT SHIFT is Present. Performed By: #### L 501.9520, L500.4050, L506.1001, L100.0100, L506.0400 #### [facility] [address] [place], [address] Lymphocytes/100 WBC (Bld) 33.1 % Normal 19-41 [facility] Comment on above: Performed By: #### L 501.9520, L500.4050, L506.1001, L100.0100, L506.0400 #### [facility] [address] [place], [address] MCH (RBC) [Entitic mass] 29.7 pg Normal 27.0-32.0 [facility] Comment on above: Performed By: #### L 501.9520, L500.4050, L506.1001, L100.0100, L506.0400 #### [facility] [address] [place], [address] MCHC (RBC) [Mass/Vol] 32.7 g/dL Normal 32-36 [facility] Comment on above: Performed By: #### L 501.9520, L500.4050, L506.1001, L100.0100, L506.0400 #### [facility] [address] [place], [address] MCV (RBC) [Entitic vol] 90.9 fL Normal 81-99 [facility] Comment on above: Performed By: #### L 501.9520, L500.4050, L506.1001, L100.0100, L506.0400 #### [facility] [address] [place], [address] Monocytes/100 WBC (Bld) 10.0 % Normal 0-10 [facility] Comment on above: Performed By: #### L 501.9520, L500.4050, L506.1001, L100.0100, L506.0400 #### [facility] [address] [place], [address] Neutrophils/100 WBC (Bld) 53.9 % Normal 47-70 [facility] Comment on above: Performed By: #### L 501.9520, L500.4050, L506.1001, L100.0100, L506.0400 #### [facility] [address] [place], [address] Nucleated RBC (Bld) [#/Vol] 0 10*3/uL Normal 0-5 [facility] Comment on above: Performed By: #### L 501.9520, L500.4050, L506.1001, L100.0100, L506.0400 #### [facility] [address] [place], [address] Platelet mean volume (Bld) [Entitic vol] 11.2 fL Normal 6.2-12.0 [facility] Comment on above: Performed By: #### L 501.9520, L500.4050, L506.1001, L100.0100, L506.0400 #### [facility] [address] [place], [address] Platelets (Bld) [#/Vol] 233 10*3/uL Normal 150-450 [facility] Comment on above: Performed By: #### L 501.9520, L500.4050, L506.1001, L100.0100, L506.0400 #### [facility] [address] [place], [address] RBC (Bld) [#/Vol] 4.61 10*6/uL Normal 4.2-5.4 [facility] Comment on above: Performed By: #### L 501.9520, L500.4050, L506.1001, L100.0100, L506.0400 #### [facility] [address] [place], [address] RDW SD 45.1 fl High 35.1-43.9 [facility] Comment on above: Performed By: #### L 501.9520, L500.4050, L506.1001, L100.0100, L506.0400 #### [facility] [address] [place], [address] WBC (Bld) [#/Vol] 7.2 10*3/uL Normal 4.4-11.0 [facility] Comment on above: Performed By: #### L 501.9520, L500.4050, L506.1001, L100.0100, L506.0400 #### [facility] [address] [place], [address] Carbon dioxide, total [Moles /volume] in Central venous bloodOrdered By: Eboni Katz on 10-27-2024 CO2 [Moles/Vol] 25.6 mmol/L 21.0-32.0 [facility] Chloride assayOrdered By: Phillip Katz on 10-27-2024 Chloride [Moles/Vol] 101 mmol/L 98-108 [facility] Comprehensive Metabolic Prof ilon 10-27-2024 Albumin [Mass/Vol] 4.3 g/dL Normal 3.4-4.8 [facility] Comment on above: Performed By: #### L 501.9520, L500.4050, L506.1001, L100.0100, L506.0400 #### [facility] [address] [place], [address] Albumin/Globulin [Mass ratio] 1.5 {ratio} Normal 0.9-2.4 [facility] Comment on above: Performed By: #### L 501.9520, L500.4050, L506.1001, L100.0100, L506.0400 #### [facility] [address] [place], [address] ALK PHOS 88 U/L Normal 35-104 [facility] Comment on above: Performed By: #### L 501.9520, L500.4050, L506.1001, L100.0100, L506.0400 #### [facility] [address] [place], [address] ALT [Catalytic activity/Vol] 19 U/L Normal <=34 [facility] Comment on above: Performed By: #### L 501.9520, L500.4050, L506.1001, L100.0100, L506.0400 #### [facility] [address] [place], [address] AST [Catalytic activity/Vol] 25 U/L Normal <=31 [facility] Comment on above: Performed By: #### L 501.9520, L500.4050, L506.1001, L100.0100, L506.0400 #### [facility] [address] [place], [address] Bilirubin [Mass/Vol] 0.65 mg/dL Normal 0.00-1.30 [facility] Comment on above: Performed By: #### L 501.9520, L500.4050, L506.1001, L100.0100, L506.0400 #### [facility] [address] [place], [address] BUN/CRE 17.3 RATIO Normal 10-20 [facility] Comment on above: Performed By: #### L 501.9520, L500.4050, L506.1001, L100.0100, L506.0400 #### [facility] [address] [place], [address] Calcium [Mass/Vol] 10.1 mg/dL Normal 7.6-11.0 [facility] Comment on above: Performed By: #### L 501.9520, L500.4050, L506.1001, L100.0100, L506.0400 #### [facility] [address] [place], [address] Chloride [Moles/Vol] 101 mmol/L Normal 98-108 [facility] Comment on above: Performed By: #### L 501.9520, L500.4050, L506.1001, L100.0100, L506.0400 #### [facility] [address] [place], [address] CO2 [Moles/Vol] 25.6 mmol/L Normal 21.0-32.0 [facility] Comment on above: Performed By: #### L 501.9520, L500.4050, L506.1001, L100.0100, L506.0400 #### [facility] [address] [place], [address] Creatinine [Mass/Vol] 1.13 mg/dL Normal 0.70-1.20 [facility] Comment on above: Performed By: #### L 501.9520, L500.4050, L506.1001, L100.0100, L506.0400 #### [facility] [address] [place], [address] GAP 13 Normal 5-15 [facility] Comment on above: Performed By: #### L 501.9520, L500.4050, L506.1001, L100.0100, L506.0400 #### [facility] [address] [place], [address] GFR/1.73 sq M.predicted among non-blacks MDRD (S/P/Bld) [Vol rate/Area] 50 mL/min/{1.73_m2} Low >60 [facility] Comment on above: Result Comment: mL/m in/1.73m2 CKD-EPI Creatinine Equation (2020) Performed By: #### L 501.9520, L500.4050, L506.1001, L100.0100, L506.0400 #### [facility] [address] [place], [address] Globulin (S) [Mass/Vol] 2.9 g/dL Normal 2.2-4.2 [facility] Comment on above: Performed By: #### L 501.9520, L500.4050, L506.1001, L100.0100, L506.0400 #### [facility] [address] [place], [address] Glucose [Mass/Vol] 103 mg/dL High 70-99 [facility] Comment on above: Performed By: #### L 501.9520, L500.4050, L506.1001, L100.0100, L506.0400 #### [facility] [address] [place], [address] Potassium [Moles/Vol] 4.8 mmol/L Normal 3.3-5.1 [facility] Comment on above: Performed By: #### L 501.9520, L500.4050, L506.1001, L100.0100, L506.0400 #### [facility] [address] [place], [address] Sodium [Moles/Vol] 140 mmol/L Normal 133-145 [facility] Comment on above: Performed By: #### L 501.9520, L500.4050, L506.1001, L100.0100, L506.0400 #### [facility] [address] [place], [address] T PROT 7.2 g/dL Normal 5.9-8.4 [facility] Comment on above: Performed By: #### L 501.9520, L500.4050, L506.1001, L100.0100, L506.0400 #### [facility] [address] [place], [address] Urea nitrogen [Mass/Vol] 20 mg/dL High 4-19 [facility] Comment on above: Performed By: #### L 501.9520, L500.4050, L506.1001, L100.0100, L506.0400 #### [facility] [address] [place], [address] Eosinophil percentageOrdered By: Eboni Katz on 10-27-2024 Eosinophils/100 WBC (Bld) 1.9 % 0-5 [facility] Erythrocyte distribution wid th ratioOrdered By: Eboni Katz on 10-27-2024 Erythrocyte distribution width (RBC) [Ratio] 13.6 % 11.6-14.6 [facility] Erythrocyte distribution wid th standard deviationOrdered By: Eboni Katz on 10-27-2024 Erythrocyte distribution width (RBC) [Ratio] 45.1 fl High 35.1-43.9 [facility] Glomerular filtration rate ( GFR) estimation/1.73 sq m using serum, plasma, or whole bOrdered By: Eboni Katz on 10-27-2024 GFR/1.73 sq M.predicted among non-blacks MDRD (S/P/Bld) [Vol rate/Area] 50 mL/min/{1.73_m2} Low >60 [facility] Comment on above: mL/min/1.73m2 CKD-EP I Creatinine Equation (2020) Hematocrit Auto (Bld) [Volum e fraction]Ordered By: Eboni Katz on 10-27-2024 Hematocrit (Bld) [Volume fraction] 41.9 % 37-47 [facility] Hemoglobin measurementOrdere d By: Eboni Katz on 10-27-2024 Hemoglobin (Bld) [Mass/Vol] 13.7 g/dL 12.0-15.0 [facility] Immature granulocytes/100 WB C Auto (Bld)Ordered By: Eboni Katz on 10-27-2024 Immature granulocytes/100 WBC (Bld) 0.300 % 0.0-0.9 [facility] Comment on above: IG% - Immature Granu locytes (promyelocytes, myelocytes and metamyelocytes) > 1% indicates that a LEFT SHIFT is Present. Internal Medicine Office Vis itolauren 10-27-2024 Internal Medicine Office Visit [facility] [address] [place], [place] [address] OFFICE VISIT Date of Service: 10/27/24 MR#: [id number] Acct: [id number] Name: GEORGIA RO Rep #: [id number] : 1945 Provider: Dr. 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 Normal [facility] - Chemistry and C hemistry - challengeOrdered By: Eboni Katz on 10-27-2024 AST [Catalytic activity/Vol] 25 U/L <32 [facility] - Hematology and Cell countsOrdered By: Eboni Katz on 10-27-2024 HbA1c (Bld) [Mass fraction] 6.0 % 4.2-6.3 [facility] MCV (mean corpuscular volume ) determinationOrdered By: Eboni Katz on 10-27-2024 MCV (RBC) [Entitic vol] 90.9 fL 81-99 [facility] Mean corpuscular hemoglobin (MCH) determinationOrdered By: Eboni Katz on 10-27-2024 MCH (RBC) [Entitic mass] 29.7 pg 27.0-32.0 [facility] Mean corpuscular hemoglobin concentration (MCHC) determinationOrdered By: Eboni Katz on 10-27-2024 MCHC (RBC) [Mass/Vol] 32.7 g/dL 32-36 [facility] Mean platelet volume determi nationOrdered By: Eboni Katz on 10-27-2024 Platelet mean volume (Bld) [Entitic vol] 11.2 fL 6.2-12.0 [facility] Monocyte percentageOrdered B y: Eboni Katz on 10-27-2024 Monocytes/100 WBC (Bld) 10.0 % 0-10 [facility] Neutrophil percentageOrdered By: Eboni Katz on 10-27-2024 Neutrophils/100 WBC (Bld) 53.9 % 47-70 [facility] Nucleated red blood cell per centageOrdered By: Eboni Katz on 10-27-2024 Nucleated RBC/100 WBC (Bld) [Ratio] 0 % 0-5 [facility] Platelet countOrdered By: Phillip Katz on 10-27-2024 Platelets (Bld) [#/Vol] 233 10*3/uL 150-450 [facility] Potassium measurement (mass/ volume)Ordered By: Eboni Katz on 10-27-2024 Potassium (Unsp spec) [Mass/Vol] 4.8 mmol/L 3.3-5.1 [facility] RBC Auto (Bld) [#/Vol]Ordere d By: Eboni Katz on 10-27-2024 RBC (Bld) [#/Vol] 4.61 10*6/uL 4.2-5.4 [facility] Serum creatinine measurement (mass/volume)Ordered By: Eboni Ktaz on 10-27-2024 Creatinine [Mass/Vol] 1.13 mg/dL 0.70-1.20 [facility] Serum globulin measurementOr dered By: Eboni Katz on 10-27-2024 Globulin (S) [Mass/Vol] 2.9 g/dL 2.2-4.2 [facility] Serum glucose measurement (m ass/volume)Ordered By: Eboni Katz on 10-27-2024 Glucose [Mass/Vol] 103 mg/dL High 70-99 [facility] Serum or plasma alanine rocha otransferase (ALT) measurementOrdered By: Eboni Katz on 10-27-2024 ALT [Catalytic activity/Vol] 19 U/L <35 [facility] Serum or plasma albumin jose l urement (mass/volume)Ordered By: Eboni Katz on 10-27-2024 Albumin [Mass/Vol] 4.3 g/dL 3.4-4.8 [facility] Serum or plasma albumin/glob ulin mass ratioOrdered By: Eboni Katz on 10-27-2024 Albumin/Globulin [Mass ratio] 1.5 {ratio} 0.9-2.4 [facility] Serum or plasma alkaline kamaljit sphatase measurementOrdered By: Eboni Katz on 10-27-2024 ALP [Catalytic activity/Vol] 88 U/L 35-104 [facility] Serum or plasma calcium jose l urement (mass/volume)Ordered By: Eboni Katz 10-27-2024 Calcium [Mass/Vol] 10.1 mg/dL 7.6-11.0 [facility] Serum or plasma urea nitroge n measurement (mass/volume)Ordered By: Eboni Katz on 10-27-2024 Urea nitrogen [Mass/Vol] 20 mg/dL High 4-19 [facility] Sodium levelOrdered By: Don harperthomas Gianna on 10-27-2024 Sodium [Moles/Vol] 140 mmol/L 133-145 [facility] T4 Free Directon 10-27-2024 T4 FREE DIRECT 1.30 ng/dL Normal 0.76-1.46 [facility] Comment on above: Performed By: #### L 501.9520, L500.4050, L506.1001, L100.0100, L506.0400 ####[facility] [address] [place], [place], [id number] T4 freeOrdered By: Eboni Katz on 10-27-2024 Free T4 [Mass/Vol] 1.30 ng/dL 0.76-1.46 [facility] TSH DL <= 0.005 mIU/L QnOrde red By: Eboni Katz on 10-27-2024 TSH Qn 3.280 uIU/mL 0.300-4.200 [facility] Thyroid Stim Hormone (TSH)on 10-27-2024 TSH 3.280 uIU/mL Normal 0.300-4.200 [facility] Comment on above: Performed By: #### L 501.9520, L500.4050, L506.1001, L100.0100, L506.0400 #### [facility] [address] [place], [place], [id number] Total proteinOrdered By: Kentrell Katz on 10-27-2024 Protein [Mass/Vol] 7.2 g/dL 5.9-8.4 [facility] Vitamin D,25 Hydroxyon 10-27 Vitamin D 25-OH 53.2 ng/mL Normal 30-100 [facility] Comment on above: Result Comment: Miryam min D Status Deficiency: <20 ng/mL (50nmol/L) Insufficiency: 20-30 ng/mL (50-75 nmol/L) Sufficiency: 30-100 ng/mL (75-250 nmol/L) Toxicity: >100 ng/mL (>250 nmol/L) Performed By: #### L 501.9520, L500.4050, L506.1001, L100.0100, L506.0400 ####[facility] [address] [place], [address] White blood cell (WBC) count Ordered By: Eboni Katz on 10-27-2024 WBC (Bld) [#/Vol] 7.2 10*3/uL 4.4-11.0 [facility] [facility] Office Vis iton 07-26-2024 Internal Medicine Office Visit [facility] [address] [place] [address] [place] [address] OFFICE VISIT Date of Service: 07/26/24 MR#: [id number] Acct: [id number] Name: GEORGIA RO Rep #: [id number] : 1945 Provider: Dr. Eboni garcia MD Age/Sex: 78/F Location: [facility] [place] Status: Signed Intake Vital Signs 04/19/24 10:28 [...] but contin (more content not included)... Normal [facility] - Hematology and Cell countsOrdered By: Eboni Katz on 07-26-2024 HbA1c (Bld) [Mass fraction] 6.2 % 4.2-6.3 [facility] CBC W/Diff, Automatedon Absolute Lymph 2.22 X10 3/uL Normal 0.83-4.51 [facility] Comment on above: Performed By: #### L 500.4050, L100.0100 #### [facility] [address] [place], [place], [id number] Absolute Neut 4.3 X10 3/uL Normal 2.0-7.7 [facility] Comment on above: Performed By: #### L 500.4050, L100.0100 #### [facility] [address] [place], [address] Basophils/100 WBC (Bld) 1.1 % High 0-1 [facility] Comment on above: Performed By: #### L 500.4050, L100.0100 #### [facility] [address] [place], [address] Eosinophils/100 WBC (Bld) 2.3 % Normal 0-5 [facility] Comment on above: Performed By: #### L 500.4050, L100.0100 #### [facility] [address] [place], [address] Erythrocyte distribution width (RBC) [Ratio] 12.8 % Normal 11.6-14.6 [facility] Comment on above: Performed By: #### L 500.4050, L100.0100 #### [facility] [address] [place], [address] Hematocrit (Bld) [Volume fraction] 39.5 % Normal 37-47 [facility] Comment on above: Performed By: #### L 500.4050, L100.0100 #### [facility] [address] [place], [address] Hemoglobin (Bld) [Mass/Vol] 13.1 g/dL Normal 12.0-15.0 [facility] Comment on above: Performed By: #### L 500.4050, L100.0100 #### [facility] [address] [place], [address] IG% 0.700 Normal 0.0-0.9 [facility] Comment on above: Result Comment: IG% - Immature Granulocytes (promyelocytes, myelocytes and metamyelocytes) > 1% indicates that a LEFT SHIFT is Present. Performed By: #### L 500.4050, L100.0100 #### [facility] [address], [address] Lymphocytes/100 WBC (Bld) 29.5 % Normal 19-41 [facility] Comment on above: Performed By: #### L 500.4050, L100.0100 #### [facility] [address] [place], [address] MCH (RBC) [Entitic mass] 29.7 pg Normal 27.0-32.0 [facility] Comment on above: Performed By: #### L 500.4050, L100.0100 #### [facility] [address] [place], [address] MCHC (RBC) [Mass/Vol] 33.2 g/dL Normal 32-36 [facility] Comment on above: Performed By: #### L 500.4050, L100.0100 #### [facility] [address] [place], [address] MCV (RBC) [Entitic vol] 89.6 fL Normal 81-99 [facility] Comment on above: Performed By: #### L 500.4050, L100.0100 #### [facility] [address] [place], [address] Monocytes/100 WBC (Bld) 9.0 % Normal 0-10 [facility] Comment on above: Performed By: #### L 500.4050, L100.0100 #### [facility] [address] [place], [address] Neutrophils/100 WBC (Bld) 57.4 % Normal 47-70 [facility] Comment on above: Performed By: #### L 500.4050, L100.0100 #### [facility] [address] [place], [address] Nucleated RBC (Bld) [#/Vol] 0 10*3/uL Normal 0-5 [facility] Comment on above: Performed By: #### L 500.4050, L100.0100 #### [facility] [address] [place], [address] Platelet mean volume (Bld) [Entitic vol] 10.5 fL Normal 6.2-12.0 [facility] Comment on above: Performed By: #### L 500.4050, L100.0100 #### [facility] [address] [place], [address] Platelets (Bld) [#/Vol] 229 10*3/uL Normal 150-450 [facility] Comment on above: Performed By: #### L 500.4050, L100.0100 #### [facility] [address] [place], [address] RBC (Bld) [#/Vol] 4.41 10*6/uL Normal 4.2-5.4 [facility] Comment on above: Performed By: #### L 500.4050, L100.0100 #### [facility] [address] [place], [address] RDW SD 42.1 fl Normal 35.1-43.9 [facility] Comment on above: Performed By: #### L 500.4050, L100.0100 #### [facility] [address] [place], [address] WBC (Bld) [#/Vol] 7.5 10*3/uL Normal 4.4-11.0 [facility] Comment on above: Performed By: #### L 500.4050, L100.0100 #### [facility] [address] [place], [address] Comprehensive Metabolic Prof ilon 06-24-2024 Albumin [Mass/Vol] 4.2 g/dL Normal 3.4-4.8 [facility] Comment on above: Performed By: #### L 500.4050, L100.0100 #### [facility] [address] [place], [address] Albumin/Globulin [Mass ratio] 1.5 {ratio} Normal 0.9-2.4 [facility] Comment on above: Performed By: #### L 500.4050, L100.0100 #### [facility] [address] [place], [address] ALK PHOS 98 U/L Normal 35-104 [facility] Comment on above: Performed By: #### L 500.4050, L100.0100 #### [facility] [address] [place], [address] ALT [Catalytic activity/Vol] 13 U/L Normal <=34 [facility] Comment on above: Performed By: #### L 500.4050, L100.0100 #### [facility] [address] [place], [address] AST [Catalytic activity/Vol] 19 U/L Normal <=31 [facility] Comment on above: Performed By: #### L 500.4050, L100.0100 #### [facility] [address] [place], [address] Bilirubin [Mass/Vol] 0.47 mg/dL Normal 0.00-1.30 [facility] Comment on above: Performed By: #### L 500.4050, L100.0100 #### [facility] [address] [place], [address] BUN/CRE 19.7 RATIO Normal 10-20 [facility] Comment on above: Performed By: #### L 500.4050, L100.0100 #### [facility] [address] [place], [address] Calcium [Mass/Vol] 9.7 mg/dL Normal 7.6-11.0 [facility] Comment on above: Performed By: #### L 500.4050, L100.0100 #### [facility] [address] [place], [address] Chloride [Moles/Vol] 100 mmol/L Normal 98-108 [facility] Comment on above: Performed By: #### L 500.4050, L100.0100 #### [facility] [address] [place], [address] CO2 [Moles/Vol] 25.9 mmol/L Normal 21.0-32.0 [facility] Comment on above: Performed By: #### L 500.4050, L100.0100 #### [facility] [address] [place], [address] Creatinine [Mass/Vol] 1.09 mg/dL Normal 0.70-1.20 [facility] Comment on above: Performed By: #### L 500.4050, L100.0100 #### [facility] [address] [place], [address] ECRCL 49.32 ml/min Low 50-250 [facility] Comment on above: Performed By: #### L 500.4050, L100.0100 #### [facility] [address] [place], [address] GAP 11 Normal 5-15 [facility] Comment on above: Performed By: #### L 500.4050, L100.0100 #### [facility] [address] [place], [address] GFR/1.73 sq M.predicted among non-blacks MDRD (S/P/Bld) [Vol rate/Area] 52 mL/min/{1.73_m2} Low >60 [facility] Comment on above: Result Comment: mL/m in/1.73m2 CKD-EPI Creatinine Equation (2020) Performed By: #### L 500.4050, L100.0100 #### [facility] [address] [place], [address] Globulin (S) [Mass/Vol] 2.8 g/dL Normal 2.2-4.2 [facility] Comment on above: Performed By: #### L 500.4050, L100.0100 #### [facility] [address] [place], [address] Glucose [Mass/Vol] 106 mg/dL High 70-99 [facility] Comment on above: Performed By: #### L 500.4050, L100.0100 #### [facility] [address] [place], [address] Potassium [Moles/Vol] 4.2 mmol/L Normal 3.3-5.1 [facility] Comment on above: Performed By: #### L 500.4050, L100.0100 #### [facility] [address] [place], [address] Sodium [Moles/Vol] 138 mmol/L Normal 133-145 [facility] Comment on above: Performed By: #### L 500.4050, L100.0100 #### [facility] [address] [place], [address] T PROT 7.0 g/dL Normal 5.9-8.4 [facility] Comment on above: Performed By: #### L 500.4050, L100.0100 #### [facility] [address] [place], [address] Urea nitrogen [Mass/Vol] 22 mg/dL High 4-19 [facility] Comment on above: Performed By: #### L 500.4050, L100.0100 #### [facility] [address] [place], [address] LDHon 03-06-2025 LDH 170 U/L Normal 84-246 [facility] Comment on above: Order Comment: 1 Performed By: #### L 500.4050, L100.0100 #### [facility] [address] [place], [address] Oncology Visit Reporton Oncology Visit Report [facility] [place] [facility] [address] [place] [address] OFFICE VISIT Date of Service: 06/24/24 1119 MR#: [id number] Acct: [id number] Name: GEORGIA RO Rep #: [id number] : 1945 From: Konstantin Saha MD Age/Sex: 78/F Location[place] [facility] [place] Status: Signed HPI Subjective Date of Service [...] safe at home: Yes additional social history: [facility] SUN EXPOSURE: FREQUENTLY ROS Constitutional Constitutional: Reports [...] documented Endocrine Endocrino (more content not included)... Normal [facility] Abdomen Limitedon 06-17-2024 Abdomen Limited [facility] Imaging Services [address] [place] [address] Abdomen Limited MR#: [id number] Acct: [id number] Name: ILANYAHAIRA Rep #: [id number] : 1945 F 78 From: Andre sagastume MD PCP: Dr. Eboni Katz MD Status: REG CLI Study: Abdomen Limited Date of Exam: 06/17/24 Exam# [id number] Ordering Dr: Ruby Parekh PROCEDURE: ABDOMEN LIMITED [...] fatty infiltration of the liver. Reading Location: [id number] CC: Dr. Eboni Katz MD; BHANU Muñoz Still Cleaner: Signed Normal [facility] Gastroenterology Visit Repor ton 06-11-2024 Gastroenterology Visit Report [facility]astro[facility] [address] [place] [address] OFFICE VISIT Date of Service: 06/11/24 MR#: [id number] Acct: [id number] Name: GEORGIA RO Rep #: [id number] : 1945 Provider: BHANU Muñoz Age/Sex: 78/F Location: [facility] [place] Status: Signed Intake Vital Signs 04/19/24 10:28 Height 5 ft 6 in Weight: 211 lb BMI 34.0 BP 122/80 H Blood Pressure Location Lt brachial Position Sitting Respiration 16 Pulse 73 Pulse Source Monitor Temp 97.5 F L Temp Source Temporal Pulse Oximetry (%) 99 Oxygen Delivery Method room air Intake Visit Reasons: follow up Chief Complaint: heartburn 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 Biopsied. *06.02.24 office contacted due to black stools and continued pain. CBC wnl, KUB showing constipation, FOBT negative OV 2; Pt continues to have daily burning epigastric [...] difficulty swallowing (more content not included)... Normal [facility] Stool Occult Blood iFOBon STOB Negative Normal [facility] Comment on above: Performed By: #### L 500.4050, L100.0100 #### [facility] [address] [place], [address] Abdomen Single Viewon 2024 Abdomen Single View [facility] Imaging Services [address] [place] [address] Abdomen Single View MR#: [id number] Acct: [id number] Name: GEORGIA RO Rep #: [id number] : 1945 F 78 From: Wilbert Lane MD PCP: Dr. Eboni Katz MD Status: REG CLI Study: Abdomen Single View Date of Exam: 06/02/24 Exam# [id number] Ordering Dr: Ruby Parekh EXAM: XR Abdomen, 1 View CLINICAL INDICATION: TECHNIQUE: Frontal supine view of the abdomen/pelvis. COMPARISON: No relevant prior studies available. FINDINGS: GASTROINTESTINAL TRACT: Fecal retention in the colon consistent with constipation. No dilation. BONES/JOINTS: Unremarkable. No acute fracture. RAD/Abdomen Single View IMPRESSION: Fecal retention in the colon consistent with constipation. Reading Location: [facility] CC: Dr. Eboni Katz MD; BHANU Muñoz Still Cleaner: Signed Normal [facility] CBC W/Diff, Automatedon 05-22 Absolute Lymph 2.37 X10 3/uL Normal 0.83-4.51 [facility] Comment on above: Performed By: #### L 100.0100, L500.4050, L101.9900, L501.6710 ####[facility] [address] [place], [address] Absolute Neut 3.4 X10 3/uL Normal 2.0-7.7 [facility] Comment on above: Performed By: #### L 100.0100, L500.4050, L101.9900, L501.6710 ####[facility] [address] [place], [address] Basophils/100 WBC (Bld) 0.9 % Normal 0-1 [facility] Comment on above: Performed By: #### L 100.0100, L500.4050, L101.9900, L501.6710 ####[facility] [address] [place], [address] Eosinophils/100 WBC (Bld) 2.0 % Normal 0-5 [facility] Comment on above: Performed By: #### L 100.0100, L500.4050, L101.9900, L501.6710 ####[facility] [address] [place], [address] Erythrocyte distribution width (RBC) [Ratio] 12.9 % Normal 11.6-14.6 [facility] Comment on above: Performed By: #### L 100.0100, L500.4050, L101.9900, L501.6710 ####[facility] [address] [place], [address] Hematocrit (Bld) [Volume fraction] 40.4 % Normal 37-47 [facility] Comment on above: Performed By: #### L 100.0100, L500.4050, L101.9900, L501.6710 ####[facility] [address] [place], [address] Hemoglobin (Bld) [Mass/Vol] 13.1 g/dL Normal 12.0-15.0 [facility] Comment on above: Performed By: #### L 100.0100, L500.4050, L101.9900, L501.6710 ####[facility] [address] [place], [address] IG% 0.800 Normal 0.0-0.9 [facility] Comment on above: Result Comment: IG% - Immature Granulocytes (promyelocytes, myelocytes and metamyelocytes) > 1% indicates that a LEFT SHIFT is Present. Performed By: #### L 100.0100, L500.4050, L101.9900, L501.6710 ####[facility] [address] [place], [address] Lymphocytes/100 WBC (Bld) 36.1 % Normal 19-41 [facility] Comment on above: Performed By: #### L 100.0100, L500.4050, L101.9900, L501.6710 ####[facility] [address] [place], [address] MCH (RBC) [Entitic mass] 29.2 pg Normal 27.0-32.0 [facility] Comment on above: Performed By: #### L 100.0100, L500.4050, L101.9900, L501.6710 ####[facility] [address] [place], [address] MCHC (RBC) [Mass/Vol] 32.4 g/dL Normal 32-36 [facility] Comment on above: Performed By: #### L 100.0100, L500.4050, L101.9900, L501.6710 ####[facility] [address] [place], [address] MCV (RBC) [Entitic vol] 90.2 fL Normal 81-99 [facility] Comment on above: Performed By: #### L 100.0100, L500.4050, L101.9900, L501.6710 ####[facility] [address] [place], [address] Monocytes/100 WBC (Bld) 8.2 % Normal 0-10 [facility] Comment on above: Performed By: #### L 100.0100, L500.4050, L101.9900, L501.6710 ####[facility] [address] [place], [address] Neutrophils/100 WBC (Bld) 52.0 % Normal 47-70 [facility] Comment on above: Performed By: #### L 100.0100, L500.4050, L101.9900, L501.6710 ####[facility] [address] [place], [address] Nucleated RBC (Bld) [#/Vol] 0 10*3/uL Normal 0-5 [facility] Comment on above: Performed By: #### L 100.0100, L500.4050, L101.9900, L501.6710 ####[facility] [address] [place], [address] Platelet mean volume (Bld) [Entitic vol] 10.8 fL Normal 6.2-12.0 [facility] Comment on above: Performed By: #### L 100.0100, L500.4050, L101.9900, L501.6710 ####[facility] [address] [place], [address] Platelets (Bld) [#/Vol] 232 10*3/uL Normal 150-450 [facility] Comment on above: Performed By: #### L 100.0100, L500.4050, L101.9900, L501.6710 ####[facility] [address] [place], [address] RBC (Bld) [#/Vol] 4.48 10*6/uL Normal 4.2-5.4 [facility] Comment on above: Performed By: #### L 100.0100, L500.4050, L101.9900, L501.6710 ####[facility] [address] [place], [address] RDW SD 42.5 fl Normal 35.1-43.9 [facility] Comment on above: Performed By: #### L 100.0100, L500.4050, L101.9900, L501.6710 ####[facility] [address] [place], [address] WBC (Bld) [#/Vol] 6.6 10*3/uL Normal 4.4-11.0 [facility] Comment on above: Performed By: #### L 100.0100, L500.4050, L101.9900, L501.6710 ####[facility] [address] [place], [address] CRPon 06-02-2024 C-REACTIVE PROT < 2.90 Normal 0.0-3.0 [facility] Comment on above: Result Comment: C-Re active Protein (CRP) provides useful information for the diagnosis, therapy and monitoring of inflammatory processes and associated diseases. For the evaluation of Relative Risk for Cardiovascular Disease, a High Sensitivity CRP (HSCRP) should be ordered. Performed By: #### L 100.0100, L500.4050, L101.9900, L501.6710 ####[facility] [address] [place], [address] Comprehensive Metabolic Prof ilon 06-02-2024 Albumin [Mass/Vol] 3.3 g/dL Normal 3.2-5.0 [facility] Comment on above: Performed By: #### L 100.0100, L500.4050, L101.9900, L501.6710 ####[facility] [address] [place], [address] Albumin/Globulin [Mass ratio] 0.9 {ratio} Normal 0.9-2.4 [facility] Comment on above: Performed By: #### L 100.0100, L500.4050, L101.9900, L501.6710 ####[facility] [address] [place], [address] ALK P 89 U/L Normal 45-117 [facility] Comment on above: Performed By: #### L 100.0100, L500.4050, L101.9900, L501.6710 ####[facility] [address] [place], [address] ALT [Catalytic activity/Vol] 20 U/L Normal 13-56 [facility] Comment on above: Performed By: #### L 100.0100, L500.4050, L101.9900, L501.6710 ####[facility] [address] [place], [address] AST [Catalytic activity/Vol] 17 U/L Normal 15-37 [facility] Comment on above: Performed By: #### L 100.0100, L500.4050, L101.9900, L501.6710 ####[facility] [address] [place], [address] Bilirubin [Mass/Vol] 0.60 mg/dL Normal 0.20-1.00 [facility] Comment on above: Result Comment: For patients on eltrombopag therapy, use of Dimension [place] TBIL is not recommended. Performed By: #### L 100.0100, L500.4050, L101.9900, L501.6710 ####[facility] [address] [place], [address] BUN/CRE 25.3 RATIO High 10-20 [facility] Comment on above: Performed By: #### L 100.0100, L500.4050, L101.9900, L501.6710 ####[facility] [address] [place], [address] CA,Total 9.5 mg/dL Normal 8.5-10.1 [facility] Comment on above: Performed By: #### L 100.0100, L500.4050, L101.9900, L501.6710 ####[facility] [address] [place], [address] Chloride [Moles/Vol] 103 mmol/L Normal 98-107 [facility] Comment on above: Performed By: #### L 100.0100, L500.4050, L101.9900, L501.6710 ####[facility] [address] [place], [address] CO2 [Moles/Vol] 29.0 mmol/L Normal 21.0-32.0 [facility] Comment on above: Performed By: #### L 100.0100, L500.4050, L101.9900, L501.6710 ####[facility] [address] [place], [address] Creatinine [Mass/Vol] 0.95 mg/dL Normal 0.55-1.02 [facility] Comment on above: Result Comment: The validity of the calculated GFR GFRAA in patients over 70 years has not been determined. Clinical correlation is essential. Performed By: #### L 100.0100, L500.4050, L101.9900, L501.6710 ####[facility] [address] [place], [address] EST GFR - AA 73 mL/min Normal >60 [facility] Comment on above: Result Comment: Afri can [place] Citizen GFR Calc Performed By: #### L 100.0100, L500.4050, L101.9900, L501.6710 ####[facility] [address] [place], [address] GAP 6 Normal 5-15 [facility] Comment on above: Performed By: #### L 100.0100, L500.4050, L101.9900, L501.6710 ####[facility] [address] [place], [address] GFR/1.73 sq M.predicted among non-blacks MDRD (S/P/Bld) [Vol rate/Area] 61 mL/min/{1.73_m2} Normal >60 [facility] Comment on above: Result Comment: Non- GFR Calc Performed By: #### L 100.0100, L500.4050, L101.9900, L501.6710 ####[facility] [address] [place], [address] Globulin (S) [Mass/Vol] 3.7 g/dL Normal 2.2-4.2 [facility] Comment on above: Performed By: #### L 100.0100, L500.4050, L101.9900, L501.6710 ####[facility] [address] [place], [address] Glucose [Mass/Vol] 129 mg/dL High 74-106 [facility] Comment on above: Result Comment: Fast ing Glucose result greater than or equal to 126 mg/dL suggests DIABETES MELLITUS per A.D.A. criteria. Performed By: #### L 100.0100, L500.4050, L101.9900, L501.6710 ####[facility] [address] [place], [address] Potassium [Moles/Vol] 3.7 mmol/L Normal 3.5-5.1 [facility] Comment on above: Performed By: #### L 100.0100, L500.4050, L101.9900, L501.6710 ####[facility] [address] [place], [address] Sodium [Moles/Vol] 139 mmol/L Normal 136-145 [facility] Comment on above: Performed By: #### L 100.0100, L500.4050, L101.9900, L501.6710 ####[facility] [address] [place], [address] T PROT 7.0 g/dL Normal 6.4-8.2 [facility] Comment on above: Performed By: #### L 100.0100, L500.4050, L101.9900, L501.6710 ####[facility] [address] [place], [address] Urea nitrogen [Mass/Vol] 24 mg/dL High 7-18 [facility] Comment on above: Performed By: #### L 100.0100, L500.4050, L101.9900, L501.6710 ####[facility] [address] [place], [address] Erythrocyte Sed Rateon 06-02 SED RATE 18 mm/hr Normal 0-30 [facility] Comment on above: Performed By: #### L 100.0100, L500.4050, L101.9900, L501.6710 ####[facility] [address] [place], [address] CBC W/Diff, Automatedon 03-23-2023 Absolute Lymph 1.95 X10 3/uL Normal 0.83-4.51 [facility] Comment on above: Performed By: #### L 500.4050, L100.0100 #### [facility] [address] [place], [address] Absolute Neut 4.0 X10 3/uL Normal 2.0-7.7 [facility] Comment on above: Performed By: #### L 500.4050, L100.0100 #### [facility] [address] [place], [address] Basophils/100 WBC (Bld) 1.0 % Normal 0-1 [facility] Comment on above: Performed By: #### L 500.4050, L100.0100 #### [facility] [address] [place], [address] Eosinophils/100 WBC (Bld) 1.0 % Normal 0-5 [facility] Comment on above: Performed By: #### L 500.4050, L100.0100 #### [facility] [address] [place], [address] Erythrocyte distribution width (RBC) [Ratio] 13.2 % Normal 11.6-14.6 [facility] Comment on above: Performed By: #### L 500.4050, L100.0100 #### [facility] [address] [place], [address] Hematocrit (Bld) [Volume fraction] 40.9 % Normal 37-47 [facility] Comment on above: Performed By: #### L 500.4050, L100.0100 #### [facility] [address] [place], [address] Hemoglobin (Bld) [Mass/Vol] 13.5 g/dL Normal 12.0-15.0 [facility] Comment on above: Performed By: #### L 500.4050, L100.0100 #### [facility] [address] [place], [address] IG% 0.700 Normal 0.0-0.9 [facility] Comment on above: Result Comment: IG% - Immature Granulocytes (promyelocytes, myelocytes and metamyelocytes) > 1% indicates that a LEFT SHIFT is Present. Performed By: #### L 500.4050, L100.0100 #### [facility] [address] [place], [address] Lymphocytes/100 WBC (Bld) 28.6 % Normal 19-41 [facility] Comment on above: Performed By: #### L 500.4050, L100.0100 #### [facility] [address] [place], [address] MCH (RBC) [Entitic mass] 30.4 pg Normal 27.0-32.0 [facility] Comment on above: Performed By: #### L 500.4050, L100.0100 #### [facility] [address] [place], [address] MCHC (RBC) [Mass/Vol] 33.0 g/dL Normal 32-36 [facility] Comment on above: Performed By: #### L 500.4050, L100.0100 #### [facility] [address] [place], [address] MCV (RBC) [Entitic vol] 92.1 fL Normal 81-99 [facility] Comment on above: Performed By: #### L 500.4050, L100.0100 #### [facility] [address] [place], [address] Monocytes/100 WBC (Bld) 9.4 % Normal 0-10 [facility] Comment on above: Performed By: #### L 500.4050, L100.0100 #### [facility] [address] [place], [address] Neutrophils/100 WBC (Bld) 59.3 % Normal 47-70 [facility] Comment on above: Performed By: #### L 500.4050, L100.0100 #### [facility] [address] [place], [address] Nucleated RBC (Bld) [#/Vol] 0 10*3/uL Normal 0-5 [facility] Comment on above: Performed By: #### L 500.4050, L100.0100 #### [facility] [address] [place], [address] Platelet mean volume (Bld) [Entitic vol] 10.9 fL Normal 6.2-12.0 [facility] Comment on above: Performed By: #### L 500.4050, L100.0100 #### [facility] [address] [place], [address] Platelets (Bld) [#/Vol] 243 10*3/uL Normal 150-450 [facility] Comment on above: Performed By: #### L 500.4050, L100.0100 #### [facility] [address] [place], [address] RBC (Bld) [#/Vol] 4.44 10*6/uL Normal 4.2-5.4 [facility] Comment on above: Performed By: #### L 500.4050, L100.0100 #### [facility] [address] [place], [address] RDW SD 44.9 fl High 35.1-43.9 [facility] Comment on above: Performed By: #### L 500.4050, L100.0100 #### [facility] [address] [place], [address] WBC (Bld) [#/Vol] 6.8 10*3/uL Normal 4.4-11.0 [facility] Comment on above: Performed By: #### L 500.4050, L100.0100 #### [facility] [address] [place], [address] Comprehensive Metabolic [facility] 04-19-2024 Albumin [Mass/Vol] 3.5 g/dL Normal 3.2-5.0 [facility] Comment on above: Performed By: #### L 500.4050, L100.0100 #### [facility] [address] [place], [address] Albumin/Globulin [Mass ratio] 1.0 {ratio} Normal 0.9-2.4 [facility] Comment on above: Performed By: #### L 500.4050, L100.0100 #### [facility] [address] [place], [address] ALK P 89 U/L Normal 45-117 [facility] Comment on above: Performed By: #### L 500.4050, L100.0100 #### [facility] [facility] [address] [place], [address] ALT [Catalytic activity/Vol] 21 U/L Normal 13-56 [facility] Comment on above: Performed By: #### L 500.4050, L100.0100 #### [facility] [address] [place], [address] AST [Catalytic activity/Vol] 15 U/L Normal 15-37 [facility] Comment on above: Performed By: #### L 500.4050, L100.0100 #### [facility] [address] [place], [address] Bilirubin [Mass/Vol] 0.70 mg/dL Normal 0.20-1.00 [facility] Comment on above: Result Comment: For patients on eltrombopag therapy, use of Dimension [place] TBIL is not recommended. Performed By: #### L 500.4050, L100.0100 #### [facility] [address] [place], [address] BUN/CRE 21.1 RATIO High 10-20 [facility] Comment on above: Performed By: #### L 500.4050, L100.0100 #### [facility] [address] [place], [address] CA,Total 9.8 mg/dL Normal 8.5-10.1 [facility] Comment on above: Performed By: #### L 500.4050, L100.0100 #### [facility] [address] [place], [address] Chloride [Moles/Vol] 102 mmol/L Normal 98-107 [facility] Comment on above: Performed By: #### L 500.4050, L100.0100 #### [facility] [address] [place], [address] CO2 [Moles/Vol] 29.0 mmol/L Normal 21.0-32.0 [facility] Comment on above: Performed By: #### L 500.4050, L100.0100 #### [facility] [address] [place], [address] Creatinine [Mass/Vol] 1.00 mg/dL Normal 0.55-1.02 [facility] Comment on above: Result Comment: The validity of the calculated GFR GFRAA in patients over 70 years has not been determined. Clinical correlation is essential. Performed By: #### L 500.4050, L100.0100 #### [facility] [address] [place], [address] EST GFR - AA 69 mL/min Normal >60 [facility] Comment on above: Result Comment: Afri can [place] GFR Calc Performed By: #### L 500.4050, L100.0100 #### [facility] [address] [place], [address] GAP 8 Normal 5-15 [facility] Comment on above: Performed By: #### L 500.4050, L100.0100 #### [facility] [address] [place], [address] GFR/1.73 sq M.predicted among non-blacks MDRD (S/P/Bld) [Vol rate/Area] 57 mL/min/{1.73_m2} Low >60 [facility] Comment on above: Result Comment: Non- GFR Calc Performed By: #### L 500.4050, L100.0100 #### [facility] [address] [place], [address] Globulin (S) [Mass/Vol] 3.6 g/dL Normal 2.2-4.2 [facility] Comment on above: Performed By: #### L 500.4050, L100.0100 #### [facility] [address] [place], [address] Glucose [Mass/Vol] 103 mg/dL Normal 74-106 [facility] Comment on above: Result Comment: Fast ing Glucose result from 100 to 125 mg/dL suggests IMPAIRED HOMEOSTASIS per A.D.A. criteria. Performed By: #### L 500.4050, L100.0100 #### [facility] [address] [place], [address] Potassium [Moles/Vol] 4.3 mmol/L Normal 3.5-5.1 [facility] Comment on above: Performed By: #### L 500.4050, L100.0100 #### [facility] [address] [place], [address] Sodium [Moles/Vol] 138 mmol/L Normal 136-145 [facility] Comment on above: Performed By: #### L 500.4050, L100.0100 #### [facility] [address], [address] T PROT 7.1 g/dL Normal 6.4-8.2 [facility] Comment on above: Performed By: #### L 500.4050, L100.0100 #### [facility] [address] [place], [address] Urea nitrogen [Mass/Vol] 21 mg/dL High 7-18 [facility] Comment on above: Performed By: #### L 500.4050, L100.0100 #### [facility] [address] [place], [address] Hemoglobin A1con 04-19-2024 HbA1c (Bld) [Mass fraction] 5.9 % High 3.8-5.6 [facility] Comment on above: Result Comment: Norm al < 5.7 % Prediabetic 5.7 - 6.4 % Diabetic >or= 6.5 % Please note range changes. Performed By: #### L 500.4050, L100.0100 #### [facility] [address] [place], [address] Internal Medicine Office Vis iton 04-19-2024 Internal Medicine Office Visit [facility] [address] [place] [address] OFFICE VISIT Date of Service: 04/19/24 MR#: [id number] Acct: [id number] Name: GE[place] RO Rep #: [id number] : 1945 Provider: Dr. Eboni garcia MD Age/Sex: 78/F Location[place] [facility] [place] Status: Signed Intake Vital Signs 01/01/24 11:20 [...] fu Chief Complaint: Follow-up chronic conditions. 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 Normal [facility] EGD Reporton 03-29-2024 EGD Report [facility] Medical Records Department [address] [place] [address] EGD Report MR#: [id number] Acct: [id number] Name: GE[place] RO Rep #: [id number] : 1945 78 From: Moustapha Stanley DO PCP: Dr. Eboni Katz MD Status:[facility] Patient Name: Georgia Ro Procedure Date: 03/29/2024 [...] pathology results. Procedure Code(s): --- Professional --- 08054, Esophagogastroduodenosc opy, flexible, transoral; with biopsy, single or multiple CPT copyright 2021 [employer] [employer]. All rights reserved. The codes documented in this report are preliminary and upon employee relations director review may be revised to meet current compliance requirements. Moustapha Stanley DO 03/29/2024 9:02:24 AM This report has been signed electronically. Number of Addenda: 0 Note Initiated On: 03/29/2024 8:48 AM 03/29/24901 Date Moustapha Stanley DO Cosigner Signature: Date _ (more content not included)... Normal [facility] H Pylori (initial)on 024 H Pylori (initial) --- Patient Age/Sex Location Account Attending Physician [place] OR 78/F EN [id number] Moustapha Stanley DO Specimen: [id number] Received: 03/29/24-1342 Status: VIVEK Jones Num: [id number] Spec Type: IMMUNO Subm Dr: Moustapha Stanley, PHYSICIAN INSTITUTION [place] [address] SPECIMEN INFORMATION: Tissue Source: B- Gastric body biopsy Clinical Info: Acute bleeding Specimen Number: [id number] CPT code: 88337 METHODOLOGY: Deparaffinized sections of prefer/formalin-fixed tissue or [...] developed and their performance characteristics determined by [facility]. They may not have been [...] Dr. Ricardo Sargent DO 03/30/24 1156 Normal [facility] Comment on above: Performed By: #### L 500.4050, L100.0100 #### [facility] [address] [place], [address] MR/POSTOP.ANEon 03-29-2024 MR/POSTOP.[facility] Medical Records Department [address] [place] [address] Anesthesia Postop Eval I 03/29/24904 MR#: [id number] Acct: [id number] Name: [place] RO ANN Rep #: [id number] : 1945 78 From: Kavin Bowers PCP: Dr. Eboni Katz MD Status:REG SDC Y Race: C Location: [place] [address] Anesthesia: Postop Eval I Current Vital Signs [...] Kavin Lepe Signature: Date CC: Signed Normal [facility] MR/[id number] 03-29-2024 MR/POSTOPAN2 [facility] Medical Records Department [address] [place] [address] Anesthesia Postop Eval II 03/29/24918 MR#: [id number] Acct: [id number] Name: [place] RO ANN Rep #: [id number] : 1945 78 From: Bud Mata MD PCP: Dr. Eboni Katz MD Status:REG SDC Y Race: C Location: [facility] Anesthesia Postop Eval I Sum Postop Eval [...] nausea: No Vomiting: No 03/29/24918 Date Bud Lepe Signature: Date CC: Signed Normal [facility] Special Stain Group Ion 12-0 Special Stain Group I ----- Patient Age/Sex Location Account Attending Physician [place] RO ANN 78/F EN [id number] Moustapha Stanley DO Specimen: [id number] Received: 03/29/24 Status: VIVEK Jones Num: [id number] Spec Type: EGD BIOPSY Subm Dr: Moustapha Stanley DO HEADER OPERATION: EGD [...] evidence of goblet cell metaplasia. See comment. AM.mr 03/30/2024 COMMENT B. The results of immunohistochemistry for Helicobacter pylori will be reported separately ([id number]). C. Alcian blue/PAS stain with matched control [...] specimen is totally submitted in one cassette. 03/29/2024 TC:3 Patient Age/Sex Location Account Attending Physician [place] RO/Al EN [id number] Moustapha Stanley DO CPT:58884b1,83577 Patient Age/Sex Location Account Attending Physician [place] RO 78/F EN [id number] Moustapha Stanley DO Signed (signature on file) Dr. Ricardo Sargent DO 03/30/24 1158 Normal [facility] Comment on above: Performed By: #### L 500.4050, L100.0100 #### [facility] [address] [place], [place], [address] Calprotectin, Stoolon [address] 174 ug/g Abnormal 0-120 [facility] Comment on above: Result Comment: Conc entration Interpretation Follow-Up < 5 - 50 ug/g Normal None >50 -120 ug/g Borderline Re-evaluate in 4-6 weeks >120 ug/g Abnormal Repeat as clinically indicated Performed at: [facility] [id number] Travel Director: Hattie Hill MD, Phone: [phone] Performed By: #### L 500.4050, L100.0100 #### [facility] [address] [place], [address] CBC W/Diff, Automatedon 02-19 Absolute Lymph 2.01 X10 3/uL Normal 0.83-4.51 [facility] Comment on above: Performed By: #### L 500.4050, L100.0100 #### [facility] [address] [place], [address] Absolute Neut 4.4 X10 3/uL Normal 2.0-7.7 [facility] Comment on above: Performed By: #### L 500.4050, L100.0100 #### [facility] [address] [place], [address] Basophils/100 WBC (Bld) 0.9 % Normal 0-1 [facility] Comment on above: Performed By: #### L 500.4050, L100.0100 #### [facility] [address] [place], [address] Eosinophils/100 WBC (Bld) 2.0 % Normal 0-5 [facility] Comment on above: Performed By: #### L 500.4050, L100.0100 #### [facility] [address] [place], [address] Erythrocyte distribution width (RBC) [Ratio] 13.7 % Normal 11.6-14.6 [facility] Comment on above: Performed By: #### L 500.4050, L100.0100 #### [facility] [address] [place], [address] Hematocrit (Bld) [Volume fraction] 40.7 % Normal 37-47 [facility] Comment on above: Performed By: #### L 500.4050, L100.0100 #### [facility] [address] [place], [address] Hemoglobin (Bld) [Mass/Vol] 13.0 g/dL Normal 12.0-15.0 [facility] Comment on above: Performed By: #### L 500.4050, L100.0100 #### [facility] [address] [place], [address] IG% 1.900 High 0.0-0.9 [facility] Comment on above: Result Comment: IG% - Immature Granulocytes (promyelocytes, myelocytes and metamyelocytes) > 1% indicates that a LEFT SHIFT is Present. Performed By: #### L 500.4050, L100.0100 #### [facility] [address] [place], [address] Lymphocytes/100 WBC (Bld) 26.8 % Normal 19-41 [facility] Comment on above: Performed By: #### L 500.4050, L100.0100 #### [facility] [address] [place], [address] MCH (RBC) [Entitic mass] 29.5 pg Normal 27.0-32.0 [facility] Comment on above: Performed By: #### L 500.4050, L100.0100 #### [facility] [address] [place], [address] MCHC (RBC) [Mass/Vol] 31.9 g/dL Low 32-36 [facility] Comment on above: Performed By: #### L 500.4050, L100.0100 #### [facility] [address] [place], [address] MCV (RBC) [Entitic vol] 92.5 fL Normal 81-99 [facility] Comment on above: Performed By: #### L 500.4050, L100.0100 #### [facility] [address] [place], [address] Monocytes/100 WBC (Bld) 9.9 % Normal 0-10 [facility] Comment on above: Performed By: #### L 500.4050, L100.0100 #### [facility] [address] [place], [address] Neutrophils/100 WBC (Bld) 58.5 % Normal 47-70 [facility] Comment on above: Performed By: #### L 500.4050, L100.0100 #### [facility] [address] [place], [address] Nucleated RBC (Bld) [#/Vol] 0 10*3/uL Normal 0-5 [facility] Comment on above: Performed By: #### L 500.4050, L100.0100 #### [facility] [address] [place], [address] Platelet mean volume (Bld) [Entitic vol] 9.6 fL Normal 6.2-12.0 [facility] Comment on above: Performed By: #### L 500.4050, L100.0100 #### [facility] [address] [place], [address] Platelets (Bld) [#/Vol] 324 10*3/uL Normal 150-450 [facility] Comment on above: Performed By: #### L 500.4050, L100.0100 #### [facility] [address] [place], [address] RBC (Bld) [#/Vol] 4.40 10*6/uL Normal 4.2-5.4 [facility] Comment on above: Performed By: #### L 500.4050, L100.0100 #### [facility] [address] [place], [address] RDW SD 46.6 fl High 35.1-43.9 [facility] Comment on above: Performed By: #### L 500.4050, L100.0100 #### [facility] [address] [place], [address] WBC (Bld) [#/Vol] 7.5 10*3/uL Normal 4.4-11.0 [facility] Comment on above: Performed By: #### L 500.4050, L100.0100 #### [facility] [address] [place], [address] Stool Lactoferrin/WBCon 02-19 WBCST Normal Reference Ran ge = Negative Fecal WBC Lactoferrin Negative: No Fecal WBC Lactoferrin present Normal [facility] Comment on above: Performed By: #### L 500.4050, L100.0100 #### [facility] [address] [place], [address] Stool Occult Blood iFOBon STOB Normal Reference Ran ge = Negative Immunochemical Fecal Occult Blood (iFOBT) method. Hemoccult Stl Ql IA Limitation: Menstrual bleeding, constipation bleeding, bleeding hemorrhoids, and urinary bleeding conditions may interfere with test. Occult Blood Negative Normal [facility] Comment on above: Performed By: #### L 500.4050, L100.0100 #### [facility] [address] [place], [address] Gastroenterology Visit Repor ton 02-27-2024 Gastroenterology Visit Report [facility]enterology [address] [place] [address] OFFICE VISIT Date of Service: 02/27/24 MR#: [id number] Acct: [id number] Name: GE[place] RO Rep #: [id number] : 1945 Provider: BHANU Muñoz Age/Sex: 78/F Location[place] [facility] [place] Status: Signed Intake Vital Signs 01/01/24 [...] cancer Sister Lung cancer Seizures Social History (Reviewed 01/01/24 @ 11:25 by REBECA Wilson Smoking Status: Never smoker alcohol intake: never [...] to the office today for establishment with [facility]. For a month now pt has been [...] pain, constipation, or diarrhea, CT abdomen pelvis .09.11; Findings which may be consistent with nonspecific [...] Rodolfo/Lymp Hematologic/Lymph (more content not included)... Normal [facility] 12 Lead EKGon 02-24-2024 12 Lead EKG [facility] Cardiovascular Services [address] [place] [address] 12 Lead EKG 02/24/24 1643 MR#: [id number] Acct: [id number] Name: [place] RO ANN Rep #: [id number] : 1945 78 From: Manuel Roe MD [...] Normal ECG Confirmed by Manuel Roe ([id number]), sports editor RORO FAITH ([id number]) on 02/25/2024 1:06:54 PM Referred By: Confirmed By: Manuel Roe 02/25/24 1306 Date Manuel Roe MD CC: Dr. Eboni Katz MD; Dr. Alex Hendricks DO Signed Normal [facility] Abdomen/Pelvis without Conto n 02-24-2024 Abdomen/Pelvis without Cont [facility] Imaging Services [address] [place] [address] Abdomen/Pelvis without Cont MR#: [id number] Acct: [id number] Name: [place] RO ANN Rep #: [id number] : 1945 F 78 From: Gatito Ramirez MD PCP: Dr. Eboni Katz MD Status: REG ER Study: Abdomen/Pelvis without Cont Date of Exam: 09/11 Exam# [id number] Ordering [place]: [place] [id number] STUDY: CT ABDOMEN AND PELVIS WITHOUT CONTRAST [...] Eboni Katz MD; Dr. Alex Hendricks DO Still Cleaner: Signed Normal [facility] BNP,B-Type NATRIURETIC PEPTI Cathryn 02-24-2024 Natriuretic peptide B (Bld) [Mass/Vol] 24.4 pg/mL Normal 0-100 [facility] Comment on above: Performed By: #### L 300.4310, L501.4020, L300.3900, L503.6620, L501.2450 ####[facility] [address] [place], [address] CBC W/Diff, Automatedon 11-0 5-2024 Absolute Lymph 1.25 X10 3/uL Normal 0.83-4.51 [facility] Comment on above: Performed By: #### L 500.4050, L100.0100 #### [facility] [address] [place], [address] Absolute Neut 5.5 X10 3/uL Normal 2.0-7.7 [facility] Comment on above: Performed By: #### L 500.4050, L100.0100 #### [facility] [address] [place], [address] Basophils/100 WBC (Bld) 0.6 % Normal 0-1 [facility] Comment on above: Performed By: #### L 500.4050, L100.0100 #### [facility] [address] [place], [address] Eosinophils/100 WBC (Bld) 4.8 % Normal 0-5 [facility] Comment on above: Performed By: #### L 500.4050, L100.0100 #### [facility] [address] [place], [address] Erythrocyte distribution width (RBC) [Ratio] 14.2 % Normal 11.6-14.6 [facility] Comment on above: Performed By: #### L 500.4050, L100.0100 #### [facility] [address] [place], [address] Hematocrit (Bld) [Volume fraction] 38.6 % Normal 37-47 [facility] Comment on above: Performed By: #### L 500.4050, L100.0100 #### [facility] [address] [place], [address] Hemoglobin (Bld) [Mass/Vol] 13.2 g/dL Normal 12.0-15.0 [facility] Comment on above: Performed By: #### L 500.4050, L100.0100 #### [facility] [address] [place], [address] IG% 0.600 Normal 0.0-0.9 [facility] Comment on above: Result Comment: IG% - Immature Granulocytes (promyelocytes, myelocytes and metamyelocytes) > 1% indicates that a LEFT SHIFT is Present. Performed By: #### L 500.4050, L100.0100 #### [facility] [facility] [address] [place], [address] Lymphocytes/100 WBC (Bld) 15.4 % Low 19-41 [facility] Comment on above: Performed By: #### L 500.4050, L100.0100 #### [facility] [address] [place], [address] MCH (RBC) [Entitic mass] 31.1 pg Normal 27.0-32.0 [facility] Comment on above: Performed By: #### L 500.4050, L100.0100 #### [facility] [address] [place], [address] MCHC (RBC) [Mass/Vol] 34.2 g/dL Normal 32-36 [facility] Comment on above: Performed By: #### L 500.4050, L100.0100 #### [facility] [address] [place], [address] MCV (RBC) [Entitic vol] 91.0 fL Normal 81-99 [facility] Comment on above: Performed By: #### L 500.4050, L100.0100 #### [facility] [address] [place], [address] Monocytes/100 WBC (Bld) 11.5 % High 0-10 [facility] Comment on above: Performed By: #### L 500.4050, L100.0100 #### [facility] [address] [place], [address] Neutrophils/100 WBC (Bld) 67.1 % Normal 47-70 [facility] Comment on above: Performed By: #### L 500.4050, L100.0100 #### [facility] [address] [place], [address] Nucleated RBC (Bld) [#/Vol] 0 10*3/uL Normal 0-5 [facility] Comment on above: Performed By: #### L 500.4050, L100.0100 #### [facility] [address] [place], [address] Platelet mean volume (Bld) [Entitic vol] 10.8 fL Normal 6.2-12.0 [facility] Comment on above: Performed By: #### L 500.4050, L100.0100 #### [facility] [address] [place], [address] Platelets (Bld) [#/Vol] 220 10*3/uL Normal 150-450 [facility] Comment on above: Performed By: #### L 500.4050, L100.0100 #### [facility] [address] [place], [address] RBC (Bld) [#/Vol] 4.24 10*6/uL Normal 4.2-5.4 [facility] Comment on above: Performed By: #### L 500.4050, L100.0100 #### [facility] [address] [place], [address] RDW SD 47.6 fl High 35.1-43.9 [facility] Comment on above: Performed By: #### L 500.4050, L100.0100 #### [facility] [address] [place], [address] WBC (Bld) [#/Vol] 8.1 10*3/uL Normal 4.4-11.0 [facility] Comment on above: Performed By: #### L 500.4050, L100.0100 #### [facility] [address] [place], [address] Chest 1 View (Portable)on Chest 1 View (Portable) [facility] [address] [place] [address] Chest 1 View (Portable) MR#: [id number] Acct: [id number] Name: GEORGIA RO Rep #: [id number] : 1945 F 78 From: Gatito Ramirez MD PCP: Dr. Eboni Katz MD Status: REG ER Study: Chest 1 View (Portable) Date of Exam: 02/24/24 Exam# [id number] Ordering [place]: [place] [id number] STUDY: X-RAY CHEST REASON FOR EXAM: Female, [...] Signed: Gatito Ramirez MD at 17:30 EST Reading Location ID and State: [address] [place] [address] Tel , Service support , CC: Dr. Eboni Katz MD; Dr. Alex Hendricks DO Still Cleaner: Signed Normal [facility] Comprehensive Metabolic Prof ilon 02-24-2024 Albumin [Mass/Vol] 3.3 g/dL Normal 3.2-5.0 [facility] Comment on above: Performed By: #### L 500.4050, L100.0100 #### [facility] [address] [place], [address] Albumin/Globulin [Mass ratio] 1.0 {ratio} Normal 0.9-2.4 [facility] Comment on above: Performed By: #### L 500.4050, L100.0100 #### [facility] [address] [place], [address] ALK P 185 U/L High 45-117 [facility] Comment on above: Performed By: #### L 500.4050, L100.0100 #### [facility] [address] [place], [address] ALT [Catalytic activity/Vol] 61 U/L High 13-56 [facility] Comment on above: Performed By: #### L 500.4050, L100.0100 #### [facility] [address] [place], [address] AST [Catalytic activity/Vol] 23 U/L Normal 15-37 [facility] Comment on above: Performed By: #### L 500.4050, L100.0100 #### [facility] [address] [place], [address] Bilirubin [Mass/Vol] 0.80 mg/dL Normal 0.20-1.00 [facility] Comment on above: Result Comment: For patients on eltrombopag therapy, use of Dimension [place] TBIL is not recommended. Performed By: #### L 500.4050, L100.0100 #### [facility] [address] [place], [address] BUN/CRE 22.6 RATIO High 10-20 [facility] Comment on above: Performed By: #### L 500.4050, L100.0100 #### [facility] [address] [place], [address] CA,Total 9.6 mg/dL Normal 8.5-10.1 [facility] Comment on above: Performed By: #### L 500.4050, L100.0100 #### [facility] [address] [place], [address] Chloride [Moles/Vol] 102 mmol/L Normal 98-107 [facility] Comment on above: Performed By: #### L 500.4050, L100.0100 #### [facility] [address] [place], [address] CO2 [Moles/Vol] 26.0 mmol/L Normal 21.0-32.0 [facility] Comment on above: Performed By: #### L 500.4050, L100.0100 #### [facility] [address] [place], [address] Creatinine [Mass/Vol] 1.55 mg/dL High 0.55-1.02 [facility] Comment on above: Result Comment: The validity of the calculated GFR GFRAA in patients over 70 years has not been determined. Clinical correlation is essential. Performed By: #### L 500.4050, L100.0100 #### [facility] [address] [place], [address] ECRCL 34.61 ml/min Normal [facility] Comment on above: Performed By: #### L 500.4050, L100.0100 #### [facility] [address] [place], [address] EST GFR - AA 42 mL/min Low >60 [facility] Comment on above: Result Comment: Afri can [place] Citizen GFR Calc Performed By: #### L 500.4050, L100.0100 #### [facility] [address] [place], [address] GAP 7 Normal 5-15 [facility] Comment on above: Performed By: #### L 500.4050, L100.0100 #### [facility] [address] [place], [address] GFR/1.73 sq M.predicted among non-blacks MDRD (S/P/Bld) [Vol rate/Area] 34 mL/min/{1.73_m2} Low >60 [facility] Comment on above: Result Comment: Non- GFR Calc Performed By: #### L 500.4050, L100.0100 #### [facility] [address] [place], [address] Globulin (S) [Mass/Vol] 3.4 g/dL Normal 2.2-4.2 [facility] Comment on above: Performed By: #### L 500.4050, L100.0100 #### [facility] [address] [place], [address] Glucose [Mass/Vol] 126 mg/dL High 74-106 [facility] Comment on above: Result Comment: Fast ing Glucose result greater than or equal to 126 mg/dL suggests DIABETES MELLITUS per A.D.A. criteria. Performed By: #### L 500.4050, L100.0100 #### [facility] [address] [place], [address] Potassium [Moles/Vol] 4.5 mmol/L Normal 3.5-5.1 [facility] Comment on above: Performed By: #### L 500.4050, L100.0100 #### [facility] [address] [place], [address] Sodium [Moles/Vol] 135 mmol/L Low 136-145 [facility] Comment on above: Performed By: #### L 500.4050, L100.0100 #### [facility] [address] [place], [address] T PROT 6.7 g/dL Normal 6.4-8.2 [facility] Comment on above: Performed By: #### L 500.4050, L100.0100 #### [facility] [address] [place], [address] Urea nitrogen [Mass/Vol] 35 mg/dL High 7-18 [facility] Comment on above: Performed By: #### L 500.4050, L100.0100 #### [facility] [address] [place], [address] Emergency Department Summary on 02-24-2024 Emergency Department Summary [facility] Medical Records Department [address] [place] [address] Emergency Department Summary 02/24/24 MR#: [id number] Acct: [id number] Name: GEORGIA RO ANN Rep #: [id number] : 1945 78 From: Alex Hendricks DO PCP: Dr. Eboni Katz MD Status:DEP ER Location: ED HPI History of Present Illness Chief Complaint: GI Bleed [facility] Medical History GI bleed Dark stools Left [...] safe at home: Yes additional social history: [facility] SUN EXPOSURE: FREQUENTLY EXAM Physical Exam [...] of DVT (more content not included)... Normal [facility] L501.4020on 02-24-2024 TROPONIN-I HS 4 pg/mL Normal 3.0-54.0 [facility] Comment on above: Order Comment: 'TROP ' Serial specimen #1, #2 or #3: 1 Result Comment: Kaushik alexandra Note: New Test Units and Gender Specific Reference Ranges. For more information see Policy Stat Procedure [place] High Sensitivity Troponin (TNIH) and attachments. Performed By: #### L 300.4310, L501.4020, L300.3900, L503.6620, L501.2450 ####[facility] [address] [place], [address] Lipaseon 02-24-2024 Lipase [Catalytic activity/Vol] 36 U/L Normal 13-75 [facility] Comment on above: Order Comment: 'TROP ' Serial specimen #1, #2 or #3: 1 Result Comment: Plea se note: LIPASE revised reference range effective 22. New Lipase methodology. Expected to produce lower values than the previous assay method. NEW Reference Range: 13 - 75 U/L Performed By: #### L 300.4310, L501.4020, L300.3900, L503.6620, L501.2450 ####[facility] [address] [place], [address] Partial Thromboplast Timeon 02-24-2024 aPTT Coag (Bld) [Time] 26.8 s Normal 24.1-36.2 [facility] Comment on above: Performed By: #### L 300.4310, L501.4020, L300.3900, L503.6620, L501.2450 ####[facility] [address] [place], [address] Prothrombin Time w/INRon INR Coag (PPP) [Relative time] 1.1 {INR} Normal [facility] Comment on above: Performed By: #### L 300.4310, L501.4020, L300.3900, L503.6620, L501.2450 ####[facility] [address] [place], [address] PT Coag (PPP) [Time] 14.0 s Normal 11.7-14.9 [facility] Comment on above: Performed By: #### L 300.4310, L501.4020, L300.3900, L503.6620, L501.2450 ####[facility] [address] [place], [address] Urinalysis, Completeon 02-23 BACTERIA RARE Normal None Seen [facility] Comment on above: Order Comment: CLEAN CATCH Performed By: #### L 500.4050, L100.0100 #### [facility] [address] [place], [address] CAST,HYALINE 0-5 SEEN Normal 0-5 [facility] Comment on above: Order Comment: CLEAN CATCH Performed By: #### L 500.4050, L100.0100 #### [facility] [address] [place], [address] EPI,SQUAMOUS 0-5 SEEN Normal 5-10 [facility] Comment on above: Order Comment: CLEAN CATCH Performed By: #### L 500.4050, L100.0100 #### [facility] [address] [place], [address] Mucus Ql (Urine sed) 0 SEEN Normal [facility] Comment on above: Order Comment: CLEAN CATCH Performed By: #### L 500.4050, L100.0100 #### [facility] [address] [place], [address] RBC 0 SEEN Normal 0-5 [facility] Comment on above: Order Comment: CLEAN CATCH Performed By: #### L 500.4050, L100.0100 #### [facility] [address] [place], [address] WBC 0 SEEN Normal 0-5 [facility] Comment on above: Order Comment: CLEAN CATCH Performed By: #### L 500.4050, L100.0100 #### [facility] [address] [place], [address] Stool Occult Blood iFOBon STOB Normal Reference Ran ge = Negative Immunochemical Fecal Occult Blood (iFOBT) method. Hemoccult Stl Ql IA Limitation: Menstrual bleeding, constipation bleeding, bleeding hemorrhoids, and urinary bleeding conditions may interfere with test. Occult Blood A Positive A OCCULT BLOOD POSITIVE Normal [facility] Comment on above: Performed By: #### L 500.4050, L100.0100 #### [facility] [address] [place], [address] CBC W/Diff, Automatedon Absolute Lymph 0.66 X10 3/uL Low 0.83-4.51 [facility] Comment on above: Performed By: #### L 500.4050, L100.0100 #### [facility] [address] [place], [address] Absolute Neut 6.0 X10 3/uL Normal 2.0-7.7 [facility] Comment on above: Performed By: #### L 500.4050, L100.0100 #### [facility] [address] [place], [address] Basophils/100 WBC (Bld) 0.5 % Normal 0-1 [facility] Comment on above: Performed By: #### L 500.4050, L100.0100 #### [facility] [address] [place], [address] Eosinophils/100 WBC (Bld) 3.3 % Normal 0-5 [facility] Comment on above: Performed By: #### L 500.4050, L100.0100 #### [facility] [address] [place], [address] Erythrocyte distribution width (RBC) [Ratio] 14.2 % Normal 11.6-14.6 [facility] Comment on above: Performed By: #### L 500.4050, L100.0100 #### [facility] [address] [place], [address] Hematocrit (Bld) [Volume fraction] 42.0 % Normal 37-47 [facility] Comment on above: Performed By: #### L 500.4050, L100.0100 #### [facility] [address] [place], [address] Hemoglobin (Bld) [Mass/Vol] 13.3 g/dL Normal 12.0-15.0 [facility] Comment on above: Performed By: #### L 500.4050, L100.0100 #### [facility] [address] [place], [address] IG% 0.800 Normal 0.0-0.9 [facility] Comment on above: Result Comment: IG% - Immature Granulocytes (promyelocytes, myelocytes and metamyelocytes) > 1% indicates that a LEFT SHIFT is Present. Performed By: #### L 500.4050, L100.0100 #### [facility] [address] [place], [address] Lymphocytes/100 WBC (Bld) 8.6 % Low 19-41 [facility] Comment on above: Performed By: #### L 500.4050, L100.0100 #### [facility] [address] [place], [address] MCH (RBC) [Entitic mass] 30.0 pg Normal 27.0-32.0 [facility] Comment on above: Performed By: #### L 500.4050, L100.0100 #### [facility] [address] [place], [address] MCHC (RBC) [Mass/Vol] 31.7 g/dL Low 32-36 [facility] Comment on above: Performed By: #### L 500.4050, L100.0100 #### [facility] [address] [place], [address] MCV (RBC) [Entitic vol] 94.6 fL Normal 81-99 [facility] Comment on above: Performed By: #### L 500.4050, L100.0100 #### [facility] [address] [place], [address] Monocytes/100 WBC (Bld) 7.7 % Normal 0-10 [facility] Comment on above: Performed By: #### L 500.4050, L100.0100 #### [facility] [address] [place], [address] Neutrophils/100 WBC (Bld) 79.1 % High 47-70 [facility] Comment on above: Performed By: #### L 500.4050, L100.0100 #### [facility] [address] [place], [address] Nucleated RBC (Bld) [#/Vol] 0 10*3/uL Normal 0-5 [facility] Comment on above: Performed By: #### L 500.4050, L100.0100 #### [facility] [address] [place], [address] Platelet mean volume (Bld) [Entitic vol] 11.5 fL Normal 6.2-12.0 [facility] Comment on above: Performed By: #### L 500.4050, L100.0100 #### [facility] [address] [place], [address] Platelets (Bld) [#/Vol] 164 10*3/uL Normal 150-450 [facility] Comment on above: Performed By: #### L 500.4050, L100.0100 #### [facility] [address] [place], [address] RBC (Bld) [#/Vol] 4.44 10*6/uL Normal 4.2-5.4 [facility] Comment on above: Performed By: #### L 500.4050, L100.0100 #### [facility] [address] [place], [address] RDW SD 49.4 fl High 35.1-43.9 [facility] Comment on above: Performed By: #### L 500.4050, L100.0100 #### [facility] [address] [place], [address] WBC (Bld) [#/Vol] 7.6 10*3/uL Normal 4.4-11.0 [facility] Comment on above: Performed By: #### L 500.4050, L100.0100 #### [facility] [address] [place], [address] Comprehensive Metabolic Prof ilon 02-20-2024 Albumin [Mass/Vol] 3.3 g/dL Normal 3.2-5.0 [facility] Comment on above: Performed By: #### L 500.4050, L100.0100 #### [facility] [address] [place], [address] Albumin/Globulin [Mass ratio] 0.9 {ratio} Normal 0.9-2.4 [facility] Comment on above: Performed By: #### L 500.4050, L100.0100 #### [facility] [address] [place], [address] ALK P 104 U/L Normal 45-117 [facility] Comment on above: Performed By: #### L 500.4050, L100.0100 #### [facility] [address] [place], [address] ALT [Catalytic activity/Vol] 49 U/L Normal 13-56 [facility] Comment on above: Performed By: #### L 500.4050, L100.0100 #### [facility] [address] [place], [address] AST [Catalytic activity/Vol] 35 U/L Normal 15-37 [facility] Comment on above: Performed By: #### L 500.4050, L100.0100 #### [facility] [address] [place], [address] Bilirubin [Mass/Vol] 0.90 mg/dL Normal 0.20-1.00 [facility] Comment on above: Result Comment: For patients on eltrombopag therapy, use of Dimension [place] TBIL is not recommended. Performed By: #### L 500.4050, L100.0100 #### [facility] [address] [place], [address] BUN/CRE 18.4 RATIO Normal 10-20 [facility] Comment on above: Performed By: #### L 500.4050, L100.0100 #### [facility] [address] [place], [address] CA,Total 9.5 mg/dL Normal 8.5-10.1 [facility] Comment on above: Performed By: #### L 500.4050, L100.0100 #### [facility] [address] [place], [address] Chloride [Moles/Vol] 102 mmol/L Normal 98-107 [facility] Comment on above: Performed By: #### L 500.4050, L100.0100 #### [facility] [address] [place], [address] CO2 [Moles/Vol] 29.0 mmol/L Normal 21.0-32.0 [facility] Comment on above: Performed By: #### L 500.4050, L100.0100 #### [facility] [address] [place], [address] Creatinine [Mass/Vol] 1.03 mg/dL High 0.55-1.02 [facility] Comment on above: Result Comment: The validity of the calculated GFR GFRAA in patients over 70 years has not been determined. Clinical correlation is essential. Performed By: #### L 500.4050, L100.0100 #### [facility] [address] [place], [address] EST GFR - AA 67 mL/min Normal >60 [facility] Comment on above: Result Comment: Afri can [place] Citizen GFR Calc Performed By: #### L 500.4050, L100.0100 #### [facility] [address] [place], [address] GAP 5 Normal 5-15 [facility] Comment on above: Performed By: #### L 500.4050, L100.0100 #### [facility] [address] [place], [address] GFR/1.73 sq M.predicted among non-blacks MDRD (S/P/Bld) [Vol rate/Area] 55 mL/min/{1.73_m2} Low >60 [facility] Comment on above: Result Comment: Non- GFR Calc Performed By: #### L 500.4050, L100.0100 #### [facility] [address] [place], [address] Globulin (S) [Mass/Vol] 3.5 g/dL Normal 2.2-4.2 [facility] Comment on above: Performed By: #### L 500.4050, L100.0100 #### [facility] [address] [place], [address] Glucose [Mass/Vol] 126 mg/dL High 74-106 [facility] Comment on above: Result Comment: Fast ing Glucose result greater than or equal to 126 mg/dL suggests DIABETES MELLITUS per A.D.A. criteria. Performed By: #### L 500.4050, L100.0100 #### [facility] [address] [place], [address] Potassium [Moles/Vol] 4.4 mmol/L Normal 3.5-5.1 [facility] Comment on above: Performed By: #### L 500.4050, L100.0100 #### [facility] [address] [place], [address] Sodium [Moles/Vol] 135 mmol/L Low 136-145 [facility] Comment on above: Performed By: #### L 500.4050, L100.0100 #### [facility] [address] [place], [address] T PROT 6.8 g/dL Normal 6.4-8.2 [facility] Comment on above: Performed By: #### L 500.4050, L100.0100 #### [facility] [address] [place], [address] Urea nitrogen [Mass/Vol] 19 mg/dL High 7-18 [facility] Comment on above: Performed By: #### L 500.4050, L100.0100 #### [facility] [address] [place], [address] CBC W/Diff, Automatedon 12-20-2023 Absolute Lymph 1.99 X10 3/uL Normal 0.83-4.51 [facility] Comment on above: Performed By: #### L 500.4050, L100.0100 #### [facility] [address] [place], [address] Absolute Neut 3.3 X10 3/uL Normal 2.0-7.7 [facility] Comment on above: Performed By: #### L 500.4050, L100.0100 #### [facility] [address] [place], [address] Basophils/100 WBC (Bld) 0.8 % Normal 0-1 [facility] Comment on above: Performed By: #### L 500.4050, L100.0100 #### [facility] [address] [place], [address] Eosinophils/100 WBC (Bld) 1.5 % Normal 0-5 [facility] Comment on above: Performed By: #### L 500.4050, L100.0100 #### [facility] [address] [place], [address] Erythrocyte distribution width (RBC) [Ratio] 13.0 % Normal 11.6-14.6 [facility] Comment on above: Performed By: #### L 500.4050, L100.0100 #### [facility] [address] [place], [address] Hematocrit (Bld) [Volume fraction] 41.3 % Normal 37-47 [facility] Comment on above: Performed By: #### L 500.4050, L100.0100 #### [facility] [address] [place], [address] Hemoglobin (Bld) [Mass/Vol] 14.1 g/dL Normal 12.0-15.0 [facility] Comment on above: Performed By: #### L 500.4050, L100.0100 #### [facility] [address] [place], [address] IG% 0.500 Normal 0.0-0.9 [facility] Comment on above: Result Comment: IG% - Immature Granulocytes (promyelocytes, myelocytes and metamyelocytes) > 1% indicates that a LEFT SHIFT is Present. Performed By: #### L 500.4050, L100.0100 #### [facility] [address] [place], [address] Lymphocytes/100 WBC (Bld) 32.8 % Normal 19-41 [facility] Comment on above: Performed By: #### L 500.4050, L100.0100 #### [facility] [address] [place], [address] MCH (RBC) [Entitic mass] 30.3 pg Normal 27.0-32.0 [facility] Comment on above: Performed By: #### L 500.4050, L100.0100 #### [facility] [address] [place], [address] MCHC (RBC) [Mass/Vol] 34.1 g/dL Normal 32-36 [facility] Comment on above: Performed By: #### L 500.4050, L100.0100 #### [facility] [address] [place], [address] MCV (RBC) [Entitic vol] 88.6 fL Normal 81-99 [facility] Comment on above: Performed By: #### L 500.4050, L100.0100 #### [facility] [address] [place], [address] Monocytes/100 WBC (Bld) 9.6 % Normal 0-10 [facility] Comment on above: Performed By: #### L 500.4050, L100.0100 #### [facility] [address] [place], [address] Neutrophils/100 WBC (Bld) 54.8 % Normal 47-70 [facility] Comment on above: Performed By: #### L 500.4050, L100.0100 #### [facility] [address] [place], [address] Nucleated RBC (Bld) [#/Vol] 0 10*3/uL Normal 0-5 [facility] Comment on above: Performed By: #### L 500.4050, L100.0100 #### [facility] [address] [place], [address] Platelet mean volume (Bld) [Entitic vol] 10.3 fL Normal 6.2-12.0 [facility] Comment on above: Performed By: #### L 500.4050, L100.0100 #### [facility] [address] [place], [address] Platelets (Bld) [#/Vol] 205 10*3/uL Normal 150-450 [facility] Comment on above: Performed By: #### L 500.4050, L100.0100 #### [facility] [address] [place], [address] RBC (Bld) [#/Vol] 4.66 10*6/uL Normal 4.2-5.4 [facility] Comment on above: Performed By: #### L 500.4050, L100.0100 #### [facility] [address] [place], [address] RDW SD 42.3 fl Normal 35.1-43.9 [facility] Comment on above: Performed By: #### L 500.4050, L100.0100 #### [facility] [address] [place], [address] WBC (Bld) [#/Vol] 6.1 10*3/uL Normal 4.4-11.0 [facility] Comment on above: Performed By: #### L 500.4050, L100.0100 #### [facility] [address] [place], [address] Comprehensive Metabolic Prof [facility] 01-01-2024 Albumin [Mass/Vol] 3.6 g/dL Normal 3.2-5.0 [facility] Comment on above: Order Comment: 1 Performed By: #### L 500.4050, L100.0100 #### [facility] [address] [place], [address] Albumin/Globulin [Mass ratio] 1.1 {ratio} Normal 0.9-2.4 [facility] Comment on above: Order Comment: 1 Performed By: #### L 500.4050, L100.0100 #### [facility] [address] [place], [address] ALK P 101 U/L Normal 45-117 [facility] Comment on above: Order Comment: 1 Performed By: #### L 500.4050, L100.0100 #### [facility] [address] [place], [address] ALT [Catalytic activity/Vol] 19 U/L Normal 13-56 [facility] Comment on above: Order Comment: 1 Performed By: #### L 500.4050, L100.0100 #### [facility] [address] [place], [address] AST [Catalytic activity/Vol] 21 U/L Normal 15-37 [facility] Comment on above: Order Comment: 1 Performed By: #### L 500.4050, L100.0100 #### [facility] [address] [place], [address] Bilirubin [Mass/Vol] 0.80 mg/dL Normal 0.20-1.00 [facility] Comment on above: Order Comment: 1 Result Comment: For patients on eltrombopag therapy, use of Dimension [place] TBIL is not recommended. Performed By: #### L 500.4050, L100.0100 #### [facility] [address] [place], [address] BUN/CRE 16.2 RATIO Normal 10-20 [facility] Comment on above: Order Comment: 1 Performed By: #### L 500.4050, L100.0100 #### [facility] [address] [place], [address] CA,Total 9.8 mg/dL Normal 8.5-10.1 [facility] Comment on above: Order Comment: 1 Performed By: #### L 500.4050, L100.0100 #### [facility] [address] [place], [address] Chloride [Moles/Vol] 104 mmol/L Normal 98-107 [facility] Comment on above: Order Comment: 1 Performed By: #### L 500.4050, L100.0100 #### [facility] [address] [place], [address] CO2 [Moles/Vol] 30.0 mmol/L Normal 21.0-32.0 [facility] Comment on above: Order Comment: 1 Performed By: #### L 500.4050, L100.0100 #### [facility] [address] [place], [address] Creatinine [Mass/Vol] 0.86 mg/dL Normal 0.55-1.02 [facility] Comment on above: Order Comment: 1 Result Comment: The validity of the calculated GFR GFRAA in patients over 70 years has not been determined. Clinical correlation is essential. Performed By: #### L 500.4050, L100.0100 #### [facility] [address] [place], [address] ECRCL 63.74 ml/min Normal [facility] Comment on above: Order Comment: 1 Performed By: #### L 500.4050, L100.0100 #### [facility] [address] [place], [address] EST GFR - AA 82 mL/min Normal >60 [facility] Comment on above: Order Comment: 1 Result Comment: Afri can [place] Citizen GFR Calc Performed By: #### L 500.4050, L100.0100 #### [facility] [address] [place], [address] GAP 5 Normal 5-15 [facility] Comment on above: Order Comment: 1 Performed By: #### L 500.4050, L100.0100 #### [facility] [address] [place], [address] GFR/1.73 sq M.predicted among non-blacks MDRD (S/P/Bld) [Vol rate/Area] 68 mL/min/{1.73_m2} Normal >60 [facility] Comment on above: Order Comment: 1 Result Comment: Non- GFR Calc Performed By: #### L 500.4050, L100.0100 #### [facility] [address] [place], [address] Globulin (S) [Mass/Vol] 3.4 g/dL Normal 2.2-4.2 [facility] Comment on above: Order Comment: 1 Performed By: #### L 500.4050, L100.0100 #### [facility] [address] [place], [address] Glucose [Mass/Vol] 105 mg/dL Normal 74-106 [facility] Comment on above: Order Comment: 1 Result Comment: Fast ing Glucose result from 100 to 125 mg/dL suggests IMPAIRED HOMEOSTASIS per A.D.A. criteria. Performed By: #### L 500.4050, L100.0100 #### [facility] [address] [place], [address] Potassium [Moles/Vol] 3.8 mmol/L Normal 3.5-5.1 [facility] Comment on above: Order Comment: 1 Performed By: #### L 500.4050, L100.0100 #### [facility] [address] [place], [address] Sodium [Moles/Vol] 139 mmol/L Normal 136-145 [facility] Comment on above: Order Comment: 1 Performed By: #### L 500.4050, L100.0100 #### [facility] [address] [place], [address] T PROT 7.0 g/dL Normal 6.4-8.2 [facility] Comment on above: Order Comment: 1 Performed By: #### L 500.4050, L100.0100 #### [facility] [address] [place], [address] Urea nitrogen [Mass/Vol] 14 mg/dL Normal 7-18 [facility] Comment on above: Order Comment: 1 Performed By: #### L 500.4050, L100.0100 #### [facility] [address] [place], [address] LDHon 01-01-2024 LDH 170 U/L Normal 84-246 [facility] Comment on above: Order Comment: 1 Performed By: #### L 500.4050, L100.0100 #### [facility] [address] [place], [address] Oncology Visit Reporton 12-20 Oncology Visit Report [facility] [address] [place] [address] OFFICE VISIT Date of Service: 01/01/24 1120 MR#: [id number] Acct: [id number] Name: GEORGIA RO ANN Rep #: [id number] : 1945 From: Konstantin Saha MD Age/Sex: 78/F Location[place] [facility] Status: Signed HPI Subjective Date of Service [...] a few years earlier, self medicates with [id number]. Neurologic Neurologic: Reports systems reviewed and no addt'l complaints, except as documented; Denies focal weakness or paresthesias Psychiatric Psychiatric: Reports (more content not included)... Normal [facility] Basic Metabolic Profile (BMP )on 12-10-2023 BUN/CRE 19.9 RATIO Normal 10-20 [facility] Comment on above: Performed By: #### L 500.4050, L100.0100 #### [facility] [address] [place], [address] CA,Total 9.6 mg/dL Normal 8.5-10.1 [facility] Comment on above: Performed By: #### L 500.4050, L100.0100 #### [facility] [address] [place], [address] Chloride [Moles/Vol] 102 mmol/L Normal 98-107 [facility] Comment on above: Performed By: #### L 500.4050, L100.0100 #### [facility] [address] [place], [address] CO2 [Moles/Vol] 29.0 mmol/L Normal 21.0-32.0 [facility] Comment on above: Performed By: #### L 500.4050, L100.0100 #### [facility] [address] [place], [address] Creatinine [Mass/Vol] 0.95 mg/dL Normal 0.55-1.02 [facility] Comment on above: Result Comment: The validity of the calculated GFR GFRAA in patients over 70 years has not been determined. Clinical correlation is essential. Performed By: #### L 500.4050, L100.0100 #### [facility] [address] [place], [address] EST GFR - AA 73 mL/min Normal >60 [facility] Comment on above: Result Comment: Afri can [place] Citizen GFR Calc Performed By: #### L 500.4050, L100.0100 #### [facility] [address] [place], [address] GAP 5 Normal 5-15 [facility] Comment on above: Performed By: #### L 500.4050, L100.0100 #### [facility] [address] [place], [address] GFR/1.73 sq M.predicted among non-blacks MDRD (S/P/Bld) [Vol rate/Area] 60 mL/min/{1.73_m2} Normal >60 [facility] Comment on above: Result Comment: Non- GFR Calc Performed By: #### L 500.4050, L100.0100 #### [facility] [address] [place], [address] Glucose [Mass/Vol] 125 mg/dL High 74-106 [facility] Comment on above: Result Comment: Fast ing Glucose result from 100 to 125 mg/dL suggests IMPAIRED HOMEOSTASIS per A.D.A. criteria. Performed By: #### L 500.4050, L100.0100 #### [facility] [address] [place], [address] Potassium [Moles/Vol] 3.8 mmol/L Normal 3.5-5.1 [facility] Comment on above: Performed By: #### L 500.4050, L100.0100 #### [facility] [address] [place], [address] Sodium [Moles/Vol] 136 mmol/L Normal 136-145 [facility] Comment on above: Performed By: #### L 500.4050, L100.0100 #### [facility] [address] [place], [address] Urea nitrogen [Mass/Vol] 19 mg/dL High 7-18 [facility] Comment on above: Performed By: #### L 500.4050, L100.0100 #### [facility] [address] [place], [address] Dexa Bone Density Studyon Dexa Bone Density Study [facility] [address] [place] [address] Dexa Bone Density Study MR#: [id number] Acct: [id number] Name: GEORGIA RO Rep #: [id number] : 1945 F 78 From: Andre sagastume MD PCP: Dr. Eboni Katz MD Status: [facility] Study: Dexa Bone Density Study Date of Exam: 12/10/23 Exam# [id number] Ordering [place]: [place] [id number] STUDY: DUAL ENERGY X-RAY ABSORPTIOMETRY / DXA [...] EDT , CC: Dr. Eboni Katz MD Still Cleaner: Signed Normal [facility] SCRN MAMM (CAD)W/SUNITA BILATo n 12-10-2023 SCRN MAMM (CAD)W/SUNITA BILAT [facility] Imaging Services [address] [place], [place] [id number] SCRN MAMM (CAD)W/SUNITA BILAT MR#: [id number] Acct: [id number] Name: GEORGIA RO Rep #: [id number] : 1945 F 78 From: Andre sagastume MD PCP: Dr. Eboni Katz MD Status: [facility] Study: SCRN MAMM (CAD)W/SUNITA BILAT Date of Exam: 11/20 05/14 Exam# [id number] Ordering [place]: [place] [id number] MAMMOGRAPHY - BILATERAL SCREENING REASON FOR EXAM: [...] delay biopsy of a clinically suspicious abnormality. [id number] Electronically Signed: Andre Brian MD at 13:37 EDT Reading Location ID and State: [address] [place] [address] , Service support , CC: Dr. Eboni Katz MD Still Cleaner: Signed Normal [facility] Abdomen Limitedon 12-09-2023 Abdomen Limited [facility] Imaging Services [address] [place], [place] [id number] Abdomen Limited MR#: [id number] Acct: [id number] Name: GEORGIA RO Rep #: [id number] : 1945 F 78 From: Andre sagastume MD PCP: Dr. Eboni Katz MD Status: [facility] Study: Abdomen Limited Date of Exam: 12/09/23 Exam# [id number] Ordering [place]: [place] [id number] STUDY: ABDOMINAL ULTRASOUND - LEFT UPPER QUADRANT [...] Signed: Andre Brian MD at 16:01 EDT , CC: Dr. Eboni Katz MD Still Cleaner: Signed Normal [facility] Abdomen/Pelvis WITH Contrast on 12-04-2023 Abdomen/Pelvis WITH Contrast [facility] Imaging Services [address] [place], [place] [address] Abdomen/Pelvis WITH Contrast MR#: [id number] Acct: [id number] Name: GEORGIA RO Rep #: [id number] : 1945 F 78 From: Andre sagastume MD PCP: Dr. Eboni Katz MD Status: [facility] Study: Abdomen/Pelvis WITH Contrast Date of Exam: Exam# [id number] Ordering Dr: Eboni Katz MD ADDENDUM by Dr. Andre Brian MD on 12/09/23 at 0938 ==== ADDENDUM ==== [id number] This is an addendum report. The patient is status post appendectomy. Electronically Signed: Andre Brian MD at 9:38 EDT , 12/09/23937 Date cc: Dr. Eboni Katz MD * Signed ADDENDUM by Dr. Andre Brian MD on 12/09/[address]/Abdomen/Pelvis WITH Contrast IMPRESSION: undefined 12/09/23 0945 Date cc: Dr. Eboni Katz MD * Signed [id number] STUDY: CT ABDOMEN AND PELVIS WITH CONTRAST [...] Signed: Andre Brian MD at 15:10 EDT Reading Location ID and State: [address] [place] [address] , Service support , CC: Dr. Eboni Katz MD Still Cleaner: Signed Normal [facility] CREATININE FINGERSTICKon CREATININE WB < 1.0 Normal 0.55-1.02 [facility] Comment on above: Performed By: #### L 500.4050, L100.0100 #### [facility] [address] [place], [place], [address] EGFR WB > 60.0000 Normal >60 [facility] Comment on above: Performed By: #### L 500.4050, L100.0100 #### [facility] [address] [place], [address] Internal Medicine Office Vis itolauren 11-19-2023 Internal Medicine Office Visit [facility] [address] [place] [address] [address] [place] [address] OFFICE VISIT Date of Service: 11/19/23 MR#: [id number] Acct: [id number] Name: GEORGIA RO Rep #: [id number] : 1945 Provider: Dr. Eboni garcia MD Age/Sex: 78/F Location[place] [facility] Status: Signed Intake Vital Signs 08/13/23 10:13 [...] or shortness (more content not included)... Normal [facility] Absolute lymphocyte countOrd ered By: Eboni Katz on 05-14-2023 Lymphocytes Auto (Unsp spec) [#/Vol] 2.11 10*3/uL 0.83-4.51 [facility] Automated lymphocyte count a s percentage of total leukocytesOrdered By: Eboni Katz on 05-14-2023 Lymphocytes/100 WBC Auto (Unsp spec) 33.1 % 19-41 [facility] Basophil percentageOrdered B y: Eboni Katz on 05-14-2023 Basophils/100 WBC (Bld) 1.1 % 0-1 [facility] Bilirubin [Mass/Vol] 0.70 mg/dL 0.20-1.00 [facility] Comment on above: For patients on eltr ombopag therapy, use of Dimension [place] TBIL is not recommended. Chloride [Moles/Vol] 105 mmol/L 98-107 [facility] Cholesterol [Mass/Vol] 189 mg/dL <200 [facility] Comment on above: <200 mg/dL Desirable 200-240 mg/dL Borderline >240 mg/dL High Risk Eosinophils/100 WBC (Bld) 1.7 % 0-5 [facility] Glucose [Mass/Vol] 106 mg/dL 74-106 [facility] Comment on above: Fasting Glucose resu lt from 100 to 125 mg/dL suggests IMPAIRED HOMEOSTASIS per A.D.A. criteria. Hemoglobin (Bld) [Mass/Vol] 14.0 g/dL 12.0-15.0 [facility] Monocytes/100 WBC (Bld) 9.1 % 0-10 [facility] Neutrophils (Bld) [#/Vol] 3.5 10*3/uL 2.0-7.7 [facility] Neutrophils/100 WBC (Bld) 54.5 % 47-70 [facility] Potassium [Moles/Vol] 3.9 mmol/L 3.5-5.1 [facility] Protein [Mass/Vol] 7.0 g/dL 6.4-8.2 [facility] Sodium [Moles/Vol] 137 mmol/L 136-145 [facility] Triglyceride [Mass/Vol] 140 mg/dL <199 [facility] Comment on above: The drugs N-Acetylcy steine and Metamizole may falsely depress this assay.Serum Triglycerides Reference Interval Normal <150 mg/dL Borderline high 150 - 199 mg/dL High 200 - 499 mg/dL Very High > or = 500 mg/dL WBC (Bld) [#/Vol] 6.4 10*3/uL 4.4-11.0 [facility] Determination of erythrocyte mean corpuscular volume (MCV)Ordered By: Eboni Katz on 05-14-2023 MCV (RBC) [Entitic vol] 90.8 fL 81-99 [facility] Erythrocyte distribution wid th ratioOrdered By: Eboni Katz on 05-14-2023 Erythrocyte distribution width (RBC) [Ratio] 13.1 % 11.6-14.6 [facility] Erythrocyte distribution wid th standard deviationOrdered By: Donmoxahalaaretha Allen[place]ore on 05-14-2023 Erythrocyte distribution width (RBC) [Entitic vol] 43.8 fL 35.1-43.9 [facility] Hematocrit Auto (Bld) [Volum e fraction]Ordered By: Eboni Katz on 05-14-2023 Hematocrit (Bld) [Volume fraction] 43.5 % 37-47 [facility] High density lipoprotein (HD L) measurementOrdered By: Eboni Katz on 05-14-2023 Cholesterol in HDL (Body fld) [Mass/Vol] 44 mg/dL >40 [facility] Comment on above: The drugs N-Acetylcy steine and Metamizole may falsely depress this assay. Reference Range HDL <40 mg/dL Low HDL Cholesterol HDL >or= 60 mg/dL High HDL Cholesterol Immature granulocytes/100 WB C Auto (Bld)Ordered By: Eboni Katz on 05-14-2023 Immature granulocytes/100 WBC (Bld) 0.500 % 0.0-0.9 [facility] Comment on above: IG% - Immature Granu locytes (promyelocytes, myelocytes and metamyelocytes) > 1% indicates that a LEFT SHIFT is Present. Laboratory - Chemistry and C hemistry - challengeOrdered By: Eboni Katz on 05-14-2023 Albumin/Globulin [Mass ratio] 0.9 {ratio} 0.9-2.4 [facility] ALP [Catalytic activity/Vol] 80 U/L 45-117 [facility] ALT [Catalytic activity/Vol] 22 U/L 13-56 [facility] CO2 [Moles/Vol] 27.0 mmol/L 21.0-32.0 [facility] Globulin (S) [Mass/Vol] 3.6 g/dL 2.2-4.2 [facility] Urea nitrogen/Creatinine [Mass ratio] 21.7 mg/mg 10-20 [facility] - Hematology and Cell countsOrdered By: Eboni Katz on 05-14-2023 MCH (RBC) [Entitic mass] 29.2 pg 27.0-32.0 [facility] MCHC (RBC) [Mass/Vol] 32.2 g/dL 32-36 [facility] Nucleated RBC/100 WBC (Bld) [Ratio] 0 % 0-5 [facility] Platelets (Bld) [#/Vol] 250 10*3/uL 150-450 [facility] Low density lipoprotein (LDL ) cholesterol measurementOrdered By: Eboni Katz on 05-14-2023 Cholesterol in LDL (Body fld) [Moles/Vol] 117 mg/dL 0-130 [facility] No Panel InformationOrdered By: Eboni Katz on 05-14-2023 Estimated GFR (MDRD) Amer 92 mL/min >60 [facility] Comment on above: GFR Calc Estimated GFR (MDRD) Non-Af Amer 76 mL/min >60 [facility] Comment on above: Non- GFR Calc Platelet mean volume Robert-Ec ker (Bld) [Entitic vol]Ordered By: Eboni Katz on 05-14-2023 Platelet mean volume (Bld) [Entitic vol] 11.0 fL 6.2-12.0 [facility] RBC Auto (Bld) [#/Vol]Ordere d By: Eboni Katz on 05-14-2023 RBC (Bld) [#/Vol] 4.79 10*6/uL 4.2-5.4 [facility] Serum or plasma calcium jose l urement (mass/volume)Ordered By: Eboni Katz on 05-14-2023 Calcium [Mass/Vol] 9.4 mg/dL 8.5-10.1 [facility] Serum or plasma creatinine m easurement (mass/volume)Ordered By: Eboni Katz on 05-14-2023 Creatinine [Mass/Vol] 0.78 mg/dL 0.55-1.02 [facility] Comment on above: The validity of the calculated GFR & GFRAA in patients over 70 years has not been determined. Clinical correlation is essential. Serum or plasma urea nitroge n measurement (mass/volume)Ordered By: Eboni Katz on 05-14-2023 Urea nitrogen [Mass/Vol] 17 mg/dL 7-18 [facility] Thin prep Papanicolaou smear with manual screeningOrdered By: Eboni Katz on 05-14-2023 Thin prep Papanicolaou smear with manual screening 3.4 g/dL 3.2-5.0 [facility] Thin prep Papanicolaou smear with manual screening 20 U/L 15-37 [facility] Thin prep Papanicolaou smear with manual screening 5 5-15 [facility] Very low density lipoprotein (VLDL) cholesterol measurementOrdered By: Eboni Katz on 05-14-2023 Cholesterol in VLDL Calc [Moles/Vol] 28 mg/dL 5-40 [facility] Whole blood hemoglobin A1c/t otal hemoglobin ratio (mass fraction)Ordered By: Eboni Katz on 05-14-2023 HbA1c (Bld) [Mass fraction] 6.0 % 3.8-5.6 [facility] Comment on above: Normal < 5.7 % Predi abetic 5.7 - 6.4 % Diabetic >or= 6.5 % Please note range changes. Laboratory - Hematology and Cell countson 02-10-2023 HbA1c (Bld) [Mass fraction] 6.2 % 4.2-6.3 [facility] Basophil percentageOrdered B y: Eboni Katz on 10-07-2022 Chloride [Moles/Vol] 103 mmol/L 98-107 [facility] Glucose [Mass/Vol] 148 mg/dL 74-106 [facility] Comment on above: Fasting Glucose resu lt greater than or equal to 126 mg/dL suggests DIABETES MELLITUS per A.D.A. criteria. Potassium [Moles/Vol] 3.6 mmol/L 3.5-5.1 [facility] Sodium [Moles/Vol] 138 mmol/L 136-145 [facility] Laboratory - Chemistry and C hemistry - challengeOrdered By: Eboni Katz on 10-07-2022 CO2 [Moles/Vol] 29.0 mmol/L 21.0-32.0 [facility] Urea nitrogen/Creatinine [Mass ratio] 23.1 mg/mg 10- [facility] No Panel InformationOrdered By: Eboni Katz on 10-07-2022 Estimated GFR (MDRD) Amer 78 mL/min >60 [facility] Comment on above: GFR Calc Estimated GFR (MDRD) Non-Af Amer 64 mL/min >60 [facility] Comment on above: Non- GFR Calc Serum or plasma calcium jose l urement (mass/volume)Ordered By: Eboni Katz on 10-07-2022 Calcium [Mass/Vol] 9.5 mg/dL 8.5-10.1 [facility] Serum or plasma creatinine m easurement (mass/volume)Ordered By: Eboni Katz on 10-07-2022 Creatinine [Mass/Vol] 0.91 mg/dL 0.55-1.02 [facility] Comment on above: The validity of the calculated GFR & GFRAA in patients over 70 years has not been determined. Clinical correlation is essential. Serum or plasma urea nitroge n measurement (mass/volume)Ordered By: Eboni Katz on 10-07-2022 Urea nitrogen [Mass/Vol] 21 mg/dL 7-18 [facility] Thin prep Papanicolaou smear with manual screeningOrdered By: jennifer Katz on 10-07-2022 Thin prep Papanicolaou smear with manual screening 6 5-15 [facility] Whole blood hemoglobin A1c/t otal hemoglobin ratio (mass fraction)Ordered By: Eboni Katz on 10-07-2022 HbA1c (Bld) [Mass fraction] 6.1 % 3.8-5.6 [facility] Comment on above: Normal < 5.7 % Predi abetic 5.7 - 6.4 % Diabetic >or= 6.5 % Please note range changes. Laboratory - Hematology and Cell countson 07-05-2022 HbA1c (Bld) [Mass fraction] 6.1 % 4.2-6.3 [facility] Absolute lymphocyte counton 09-14-2021 Lymphocytes Auto (Unsp spec) [#/Vol] 2.11 10*3/uL 0.83-4.51 [facility] Work Phone: Basophil percentageon 2021 Basophils/100 WBC (Bld) 0.8 % 0-1 [facility] Work Phone: Eosinophils/100 WBC (Bld) 2.1 % 0-5 [facility] Work Phone: Neutrophils (Bld) [#/Vol] 3.3 10*3/uL 2.0-7.7 [facility] Work Phone: Neutrophils/100 WBC (Bld) 52.9 % 47-70 [facility] Work Phone: WBC (Bld) [#/Vol] 6.3 10*3/uL 4.4-11.0 [facility] Work Phone: Blood erythrocytes count (nu mber/volume)on 09-14-2021 RBC (Bld) [#/Vol] 4.72 10*6/uL 4.2-5.4 [facility] [place]: Blood hemoglobin measurement (mass/volume)on 09-14-2021 Hemoglobin (Bld) [Mass/Vol] 14.1 g/dL 12.0-15.0 [facility] Work Phone: Blood lymphocytes/100 leukoc yteson 09-14-2021 Lymphocytes/100 WBC (Bld) 33.5 % 19-41 [facility] Work Phone: Blood monocytes/100 leukocyt eson 09-14-2021 Monocytes/100 WBC (Bld) 9.7 % 0-10 [facility] Work Phone: Blood platelet mean volumeon 09-14-2021 Platelet mean volume (Bld) [Entitic vol] 10.8 fL 6.2-12.0 [facility] Work Phone: Determination of erythrocyte mean corpuscular volume (MCV)on 09-14-2021 MCV (RBC) [Entitic vol] 86.9 fL 81-99 [facility] Work Phone: Hematocrit Auto (Bld) [Volum e fraction]on 09-14-2021 Hematocrit (Bld) [Volume fraction] 41.0 % 37-47 [facility] Work Phone: Laboratory - Hematology and Cell countson 09-14-2021 Erythrocyte distribution width (RBC) [Entitic vol] 42.5 fL 35.1-43.9 [facility] Work Phone: Erythrocyte distribution width (RBC) [Ratio] 13.3 % 11.6-14.6 [facility] Work Phone: Immature granulocytes/100 WBC (Bld) 1.000 % 0.0-0.9 [facility] Work Phone: Comment on above: IG% - Immature Granu locytes (promyelocytes, myelocytes and metamyelocytes) > 1% indicates that a LEFT SHIFT is Present. MCH (RBC) [Entitic mass] 29.9 pg 27.0-32.0 [facility] Work Phone: Nucleated RBC/100 WBC (Bld) [Ratio] 0 % 0-5 [facility] Work Phone: MCHC Auto (RBC) [Mass/Vol]on 09-14-2021 MCHC (RBC) [Mass/Vol] 34.4 g/dL 32-36 [facility] Work Phone: Platelets bldon 09-14-2021 Platelets (Bld) [#/Vol] 203 10*3/uL 150-450 [facility] Work Phone: Basophil percentageon 2021 Chloride [Moles/Vol] 102 mmol/L 98-107 [facility] Work Phone: Glucose [Mass/Vol] 123 mg/dL 74-106 [facility] Work Phone: Comment on above: Fasting Glucose resu lt from 100 to 125 mg/dL suggests IMPAIRED HOMEOSTASIS per A.D.A. criteria. Potassium [Moles/Vol] 3.5 mmol/L 3.5-5.1 [facility] Work Phone: Sodium [Moles/Vol] 138 mmol/L 136-145 [facility] Work Phone: Laboratory - Chemistry and C hemistry - challengeon 09-03-2021 CO2 [Moles/Vol] 31.0 mmol/L 21.0-32.0 [facility] Work Phone: Natriuretic peptide B (Bld) [Mass/Vol] 26.0 pg/mL 0-100 [facility] Work Phone: Urea nitrogen/Creatinine [Mass ratio] 19.6 mg/mg 10-20 [facility] Work Phone: No Panel Informationon 09-03 Estimated GFR (MDRD) Amer 88 mL/min >60 [facility] Work Phone: Comment on above: GFR Calc Estimated GFR (MDRD) Non-Af Amer 73 mL/min >60 [facility] Work Phone: Comment on above: Non- GFR Calc Serum or plasma calcium jose l urement (mass/volume)on 09-03-2021 Calcium [Mass/Vol] 9.4 mg/dL 8.5-10.1 [facility] Work Phone: Serum or plasma creatinine m easurement (mass/volume)on 09-03-2021 Creatinine [Mass/Vol] 0.82 mg/dL 0.55-1.02 [facility] Work Phone: Comment on above: The validity of the calculated GFR & GFRAA in patients over 70 years has not been determined. Clinical correlation is essential. Serum or plasma urea nitroge n measurement (mass/volume)on 09-03-2021 Urea nitrogen [Mass/Vol] 16 mg/dL 7-18 [facility] Work Phone: Thin prep Papanicolaou smear with manual screeningon 09-03-2021 Thin prep Papanicolaou smear with manual screening 5 5-15 [facility] Work Phone: OBSOLETEon 03-10-2019 OBSOLETE Refill (INTMWS) [place] ([id number]) 1945 F Date Time Provider Department 03/10/19 [facility] INTMWS During your visit today, we recorded the following information about you: Hannah Santos RN 03/10/2019 10:29 AM Signed [employer] phones requesting refills as follows: Pending Prescriptions [...] contact current PCP for refills. Kameron Bernardo APRN.[facility] Allergies As of Date: 03/10/2019 Noted Allergy [...] Status:Closed by SETH CHOUDHARY CMA on 03/15/19 [facility] OBSOLETEon 11-02-2018 OBSOLETE Refill (INTMWS) [place] ([id number]) 1945 Date Time Provider Department 11/02/18 [facility] [...] daily. ENRIQUE: No Authorizing Provider: KAMERON BERNARDO (EDITOR DEPARTMENT) Kameron Bernardo APRN.EDITOR DEPARTMENT Allergies As of Date: 11/02/2018 Noted Allergy [...] Status:Closed by KAMERON BERNARDO CNP on 11/02/18 [facility] OBSOLETEon 10-20-2018 OBSOLETE Refill (FAMPWS) [place] ([id number]) 1945 F Date Time Provider Department 10/20[facility]18 [facility] your visit today, we recorded the [...] shows active prescription at pharmacy. Kameron Bernardo APRN.CNP Allergies As of Date: 10/20/2018 [...] Status:Closed by SETH CHOUDHARY CMA on 10/21/18 [facility] OBSOLETEon 10-07-2018 OBSOLETE Refill (INTMWS) [place] ([id number]) 1945 F Date Time Provider Department 10/07/18 [...] applicable Please advise. Thank you. Erin Bernardo APRN.EDITOR DEPARTMENT 10/08/2018 10:40 AM Signed The following approved medication requests have been transmitted electronically. Signed Prescriptions Disp Refills losartan (COZAAR) 50 mg tablet 90 tablet 0 Sig: Take 1 tablet by mouth once daily. ENRIQUE: No Authorizing Provider: KAMERON BERNARDO ([facility]) Kameron Bernardo APRN.EDITOR DEPARTMENT Allergies As of Date: 10/07/2018 Noted Allergy [...] Status:Closed by KAMERON BERNARDO CNP on 10/08/18 [facility] OBSOLETEon 08-31-2018 OBSOLETE Refill (INTMWS) [place] ([id number]) 1945 F Date Time Provider Department 08/31/18 [...] daily. ENRIQUE: No Authorizing Provider: KAMERON BERNARDO ([facility]) Kameron Bernardo APRN.EDITOR DEPARTMENT Allergies As of Date: 08/31/2018 Noted Allergy [...] by KAMERON BERNARDO CNP on 08/31/18 [facility] PROGRESSon 05-12-2018 PROGRESS HNO ID: [id number] Author: Cintia (Rt) Cheli Mcginnis Service: (none) Author Type: Bacteriology Teacher Type: Progress Notes Filed: 05/12/2018 8:25 AM [...] RT Jonathan May 12, 2018 8:07 AM [facility] XR ANKLE 3V AP/LAT/OBL LTon [...] There is no focal soft tissue swelling. Still Cleaner: [facility] Transcribe Date/Time: May 12 2018 9:07A Dictated by : GIL MARTÍNEZ MD This examination was interpreted and the report reviewed and electronically signed by: GIL MARTÍNEZ MD on May 12 2018 9:11AM EST [id number] [facility] XR TIBIA FIBULA 2V AP/LAT [...] There is no focal soft tissue swelling. Still Cleaner: [facility] Transcribe Date/Time: May 12 2018 9:07A Dictated by : GIL MARTÍNEZ MD This examination was interpreted and the report reviewed and electronically signed by: GIL MARTÍNEZ MD on May 12 2018 9:11AM EST [id number] [facility] CNPChrissy 05-04-[facility] [place] ([id number]) 1945 F Date Time Provider Department 05/04/18 KAMERON BERNARDO ([facility]) SHERON During your visit today, we recorded the following information about you: Lilli Vale RN 05/04/2018 2:25 PM Signed Tricia merrill from [employer], part of [employer] regarding MRI of left ankle. This has been reviewed by medical esthetician and he would need additional clinical information to consider this for coverage. A peer to peer would need completed before 05/09/18, to consider this for possible coverage. Please call for peer to peer. Case # [id number]. Please review and advise. CARLITA Davis LPN 05/05/2018 9:18 AM Signed Vero with [employer], part of [employer] calling with an updated phone number to call to to the peer to peer [phone] Option 4. Case # [id number]. Lilli Gomez RN 05/11/2018 8:54 AM Signed Moises Monge- reports PA for MRI has been denied. director process did not approve request due to no plain x-ray results. Will mail letter with appeal options to Kameron Bernardo (reports they have a blocked fax # for Megan Bernardo- they are not allowed to fax to). Call with any questions, case # [id number]. Kameron Bernardo APRN.[facility] 05/11/2018 10:06 AM Signed Can we please [...] improvement, she will come in for xray. Kamerongloria Bernardo APRN.CNP 05/11/2018 10:20 AM Signed Addended [...] M79.89] Order(s):XR TIBIA FIBULA 2V AP/LAT LT [[id number]] Order #: [id number] FUTURE XR ANKLE GENERAL 3V AP/LAT/OBL LT [[id number]] Order #: [id number] FUTURE Prescriptions as of 05/04/2018 Sig: POTASSIUM [...] by RAMÓN WILLIAMSON LPN on 05/11/18 [facility] US EXTREMITY MASS/FLUID KATHY LEFT COMPLTon 03-31-2018 US EXTREMITY MASS/FLUID KATHY LEFT COMPLT Performed at [facility] APPROVED BY: Wilbert Freedman MD EXAM [...] be the next study of choice. [facility] CNOVon 03-24-2018 CNOV Office Visit (INTMWS ) [place] ([id number]) 1945 F Date Time Provider Department 03/24/18 8:40 AM KAMERON BERNARDO ([facility]) INTMWS During your visit today, we recorded [...] be determined by imaging studies Kameron Bernardo APRN.EDITOR DEPARTMENT Prescription instructions reviewed with patient as applicable. Potential red flag symptoms discussed with the patient. Reviewed appropriate action plan to take if red flag symptoms occur. Patient agreeable to treatment plan. Kameron Bernardo APRN.[facility] Referring Provider: SELF [[id number]] Allergies [...] capsuleRfl: 3 US EXTREMITY MASS/FLUID COLLECTION LT [[id number]] Order #: [id number] FUTURE Prescriptions as of 03/24/2018 Sig: POTASSIUM [...] by KAMERON BERNARDO CNP on 03/24/18 [facility] PROGRESSon 03-24-2018 PROGRESS HNO ID: [id number] Author: Kameron Bernardo Service: (none) Author Type: Nurse Practitioner [...] be determined by imaging studies Kameron Bernardo APRN.[facility] Prescription instructions reviewed with patient as applicable. Potential red flag symptoms discussed with the patient. Reviewed appropriate action plan to take if red flag symptoms occur. Patient agreeable to treatment plan. Kameron Bernardo APRN.CNP [facility] Office Visit: postop surgery 12/19/1602-05-2017 Dietary management education, guidance, and counseling (procedure) yes Invalid Interpretation Code [facility] Work Phone: [phone] Documentation of current medications (procedure) Done Invalid Interpretation Code [facility] Work Phone: [phone] Fall risk assessment No Invalid Interpretation Code [facility] Work Phone: [phone] Tobacco smoking status NHIS Never Invalid Interpretation Code [facility] Work Phone: [phone] Tobacco use CPHS Never smoker Invalid Interpretation Code [facility] Work Phone: [phone] Microbiology: Acid Fast Bact Cult/Smon 05-16-2016 AFBCS . Invalid Interpretation Code [facility] Work Phone: [phone] Replaced Document: (P) Fungu s Stainon 05-09-2016 FUNST . Invalid Interpretation Code [facility] Work Phone: [phone] Lab Report: Basic Metabolic Profile (BMP)on 04-05-2016 Anion gap 4 mmol/L Low 5-15 [facility] Work Phone: [phone] BUN/Creatinine Ratio 18.3 RATIO Invalid Interpretation Code 10-20 [facility] Work Phone: [phone] Calcium 9.4 mg/dL Invalid Interpretation Code 8.5-10.1 [facility] Work Phone: [phone] Chloride 103 mmol/L Invalid Interpretation Code 98-107 [facility] Work Phone: [phone] CO2 29.0 mmol/L Invalid Interpretation Code 21.0-32.0 [facility] Work Phone: [phone] Creatinine 0.77 mg/dL Invalid Interpretation Code 0.55-1.02 [facility] Work Phone: [phone] Creatinine 49.70 mL/min Invalid Interpretation Code [facility] Work Phone: [phone] eGFR (non-black) 79 mL/min/{1.73_m2} Invalid Interpretation Code >60 [facility] Work Phone: [phone] eGFR (non-black) 96 mL/min/{1.73_m2} Invalid Interpretation Code >60 [facility] Work Phone: [phone] Glucose mass conc 125 mg/dL High 70-110 [facility] Work Phone: [phone] Potassium molar conc 4.2 mmol/L Invalid Interpretation Code 3.5-5.1 [facility] Work Phone: [phone] Sodium 136 mmol/L Invalid Interpretation Code 136-145 [facility] Work Phone: [phone] Urea nitrogen 14 mg/dL Invalid Interpretation Code 7-18 [facility] Work Phone: [phone] Lab Report: CBC-Complete Blo od Cnt No Diffon 04-05-2016 Erythrocyte distribution width Auto Ratio (RBC) 12.5 % Invalid Interpretation Code 11.6-14.6 [facility] Work Phone: [phone] Erythrocytes (RBC) 4.30 10*6/uL Invalid Interpretation Code 4.2-5.4 [facility] Work Phone: [phone] Hematocrit (HCT) 38.8 % Invalid Interpretation Code 37-47 [facility] Work Phone: [phone] Hemoglobin mass conc (Bld) 13.2 g/dL Invalid Interpretation Code 12.0-15.0 [facility] Work Phone: [phone] MCH 30.7 pg Invalid Interpretation Code 27.0-32.0 [facility] Work Phone: [phone] MCHC mass conc (RBC) 34.0 G/GL Invalid Interpretation Code 32-36 [facility] Work Phone: [phone] MCV 90.2 fL Invalid Interpretation Code 81-99 [facility] Work Phone: [phone] Platelets 214 10*3/mm3 Invalid Interpretation Code 150-450 [facility] Work Phone: [phone] PMV by German 10.9 fL Invalid Interpretation Code 6.2-12.0 [facility] Work Phone: [phone] RDW SD 40.9 fL Invalid Interpretation Code 35.1-43.9 [facility] Work Phone: [phone] WBC (Leukocytes) 13.9 10*3/uL High 4.4-11.0 [email or web address] Work Phone: [phone] Lab Report: CBC W/Diff, Auto matedon 04-03-2016 Absolute Neut 4.5 X10 3/UL Invalid Interpretation Code 2.0-7.7 [facility] Work Phone: Basophils/100 WBC Auto (Bld) 0.4 % Invalid Interpretation Code 0-1 [facility] Work Phone: Eosinophils/100 leukocytes 1.2 % Invalid Interpretation Code 0-5 [facility] Work Phone: Immature granulocytes/100 WBC (Bld) 0.100 % Invalid Interpretation Code 0.0-0.9 [facility] Work Phone: Lymphocytes 2.60 X10 3/UL Invalid Interpretation Code 0.83-4.51 [facility] Work Phone: Lymphocytes/100 leukocytes 32.4 % Invalid Interpretation Code 19-41 [facility] Work Phone: Monocytes/100 leukocytes 9.4 % Invalid Interpretation Code 0-10 [facility] Work Phone: Neutrophils/100 WBC Auto (Bld) 56.5 % Invalid Interpretation Code 47-70 [facility] Work Phone: Lab Report: Prealbuminon Prealbumin 19.3 mg/dL Low 20.0-40.0 [facility] Work Phone: [phone] Vital Signs Date Time Vital Sign Value Performing Clinician Felipe byrd 10-27-2024 09:41-0400 Body height 167.[address] Eboni Katz MD Work Phone: [facility] 10-27-2024 09:41-0400 Body mass index (BMI) [Ratio] 32.5 kg/m2 Dr. Eboni Katz MD Work Phone: [facility] 10-27-2024 09:41-0400 Body temperature 97.5 [degF] Dr. Eboni Katz MD Work Phone: [facility] 10-27-2024 09:41-0400 Body weight 91.[address] Eboni Katz MD Work Phone: [facility] 10-27-2024 09:41-0400 Diastolic blood pressure 66 mm[Hg] Dr. Eboni Katz MD Work Phone: [facility] 10-27-2024 09:41-0400 Heart rate 66 /min Dr. Eboni Katz MD Work Phone: [facility] 10-27-2024 09:41-0400 Respiratory rate 16 /min Dr. Eboni Katz MD Work Phone: [facility] 10-27-2024 09:41-0400 SaO2% (BldA) [Mass fraction] 95 % Dr. Eboni Katz MD Work Phone: [facility] 10-27-2024 09:41-0400 Systolic blood pressure 112 mm[Hg] Dr. Eboni Katz MD Work Phone: [facility] 07-26-2024 09:08-0400 Body mass index (BMI) [Ratio] 34.3 kg/m2 Dr. Eboni Katz MD Work Phone: [facility] 07-26-2024 09:08-0400 Body temperature 98.2 [degF] Dr. Eboni Katz MD Work Phone: [facility] 07-26-2024 09:08-0400 Body weight 96.[address] Eboni aKtz MD Work Phone: [facility] 07-26-2024 09:08-0400 Diastolic blood pressure 68 mm[Hg] Dr. Eboni Katz MD Work Phone: [facility] 07-26-2024 09:08-0400 Heart rate 72 /min Dr. Eboni Katz MD Work Phone: [facility] 07-26-2024 09:08-0400 Respiratory rate 18 /min Dr. Eboni Katz MD Work Phone: [facility] 07-26-2024 09:08-0400 SaO2% (BldA) [Mass fraction] 96 % Dr. Eboni Katz MD Work Phone: [facility] 07-26-2024 09:08-0400 Systolic blood pressure 124 mm[Hg] Dr. Eboni Katz MD Work Phone: [facility] 05-21-2023 10:26-0500 Body temperature 97.2 [degF] Dr. Eboni Katz Work Phone: [facility] 05-21-2023 10:26-0500 Diastolic blood pressure 64 mm[Hg] Dr. Eboni Katz Work Phone: [facility] 05-21-2023 10:26-0500 Heart rate 80 /min Dr. Eboni Katz Work Phone: [facility] 05-21-2023 10:26-0500 Respiratory rate 16 /min Dr. Eboni Katz Work Phone: [facility] 05-21-2023 10:26-0500 SaO2% (BldA) [Mass fraction] 98 % Dr. Eboni Katz Work Phone: [facility] 05-21-2023 10:26-0500 Systolic blood pressure 136 mm[Hg] Dr. Eboni Katz Work Phone: [facility] 05-21-2023 07:37-0500 Body height 167.[address] Eboni Katz Work Phone: [facility] 05-21-2023 07:37-0500 Body mass index (BMI) [Ratio] 33.4 kg/m2 Dr. Eboni Katz Work Phone: [facility] 05-21-2023 07:37-0500 Body weight [address] Eboni Katz Work Phone: [facility] 05-14-2023 08:03-0500 Body height 167.[address] Eboni Katz Work Phone: [facility] 05-14-2023 08:03-0500 Body mass index (BMI) [Ratio] 33.7 kg/m2 Dr. Eboni Katz Work Phone: [facility] 05-14-2023 08:03-0500 Body temperature 98.4 [degF] Dr. Eboni Katz Work Phone: [facility] 05-14-2023 08:03-0500 Body weight 94.[address] Eboni Katz Work Phone: [facility] 05-14-2023 08:03-0500 Diastolic blood pressure 70 mm[Hg] Dr. Eboni Katz Work Phone: [facility] 05-14-2023 08:03-0500 Heart rate 77 /min Dr. Eboni Katz Work Phone: [facility] 05-14-2023 08:03-0500 Respiratory rate 16 /min Dr. Eboni Katz Work Phone: [facility] 05-14-2023 08:03-0500 SaO2% (BldA) [Mass fraction] 98 % Dr. Eboni Katz Work Phone: [facility] 05-14-2023 08:03-0500 Systolic blood pressure 124 mm[Hg] Dr. Eboni Katz Work Phone: [facility] 05-02-2023 06:51-0500 Body mass index (BMI) [Ratio] 33.7 kg/m2 Dr. Eboni Katz Work Phone: [facility] 05-02-2023 06:51-0500 Body temperature 97.6 [degF] Dr. Eboni Katz Work Phone: [facility] 05-02-2023 06:51-0500 Body weight 94.[address] Eboni Katz Work Phone: [facility] 05-02-2023 06:51-0500 Diastolic blood pressure 62 mm[Hg] Dr. Eboni Katz Work Phone: [facility] 05-02-2023 06:51-0500 Heart rate 70 /min Dr. Eboni Katz Work Phone: [facility] 05-02-2023 06:51-0500 Respiratory rate 16 /min Dr. Eboni Katz Work Phone: [facility] 05-02-2023 06:51-0500 SaO2% (BldA) [Mass fraction] 97 % Dr. Eboni Katz Work Phone: [facility] 05-02-2023 06:51-0500 Systolic blood pressure 150 mm[Hg] Dr. Eboni Katz Work Phone: [facility] 02-10-2023 08:06-0400 Body height 167.[address] Eboni Katz Work Phone: [facility] 02-10-2023 08:06-0400 Body mass index (BMI) [Ratio] 33.4 kg/m2 Dr. Eboni Katz Work Phone: [facility] 02-10-2023 08:06-0400 Body weight 93.[address] Eboni Katz Work Phone: [facility] 02-10-2023 08:06-0400 Diastolic blood pressure 70 mm[Hg] Dr. Eboni Katz Work Phone: [facility] 02-10-2023 08:06-0400 Heart rate 50 /min Dr. Eboni Katz Work Phone: [facility] 02-10-2023 08:06-0400 Respiratory rate 16 /min Dr. Eboni Katz Work Phone: [facility] 02-10-2023 08:06-0400 SaO2% (BldA) [Mass fraction] 99 % Dr. Eboni Katz Work Phone: [facility] 02-10-2023 08:06-0400 Systolic blood pressure 130 mm[Hg] Dr. Eboni Katz Work Phone: [facility] 10-07-2022 08:00-0400 Body height 167.[address] Eboni Katz Work Phone: [facility] 10-07-2022 08:00-0400 Body mass index (BMI) [Ratio] 34.7 kg/m2 Dr. Eboni Katz Work Phone: [facility] 10-07-2022 08:00-0400 Body temperature 96.3 [degF] Dr. Eboni Katz Work Phone: [facility] 10-07-2022 08:00-0400 Body weight 97.[address] Eboni Katz Work Phone: [facility] 10-07-2022 08:00-0400 Diastolic blood pressure 76 mm[Hg] Dr. Eboni Katz Work Phone: [facility] 10-07-2022 08:00-0400 Heart rate 65 /min Dr. Eboni Katz Work Phone: [facility] 10-07-2022 08:00-0400 Respiratory rate 18 /min Dr. Eboni Katz Work Phone: [facility] 10-07-2022 08:00-0400 SaO2% (BldA) [Mass fraction] 99 % Dr. Eboni Katz Work Phone: [facility] 10-07-2022 08:00-0400 Systolic blood pressure 136 mm[Hg] Dr. Eboni Katz Work Phone: [facility] 08-23-2022 09:45-0400 Body temperature 97.3 [degF] Dr. Eboni Katz Work Phone: [facility] 08-23-2022 09:45-0400 Diastolic blood pressure 64 mm[Hg] Dr. Eboni Katz Work Phone: [facility] 08-23-2022 09:45-0400 Heart rate 70 /min Dr. Eboni Katz Work Phone: [facility] 08-23-2022 09:45-0400 Respiratory rate 16 /min Dr. Eboni Katz Work Phone: [facility] 08-23-2022 09:45-0400 SaO2% (BldA) [Mass fraction] 98 % Dr. Eboni Katz Work Phone: [facility] 08-23-2022 09:45-0400 Systolic blood pressure 110 mm[Hg] Dr. Eboni Katz Work Phone: [facility] 08-23-2022 08:10-0400 Body height 167.[address] Eboni Katz Work Phone: [facility] 08-23-2022 08:10-0400 Body mass index (BMI) [Ratio] 34.3 kg/m2 Dr. Eboni Katz Work Phone: [facility] 08-23-2022 08:10-0400 Body weight 96.[address] Eboni Katz Work Phone: [facility] 07-05-2022 08:24-0400 Body mass index (BMI) [Ratio] 35.1 kg/m2 Dr. Eboni Katz Work Phone: [facility] 07-05-2022 08:24-0400 Body temperature 96.4 [degF] Dr. Eboni Katz Work Phone: [facility] 07-05-2022 08:24-0400 Body weight 98.[address] bEoni Katz Work Phone: [facility] 07-05-2022 08:24-0400 Diastolic blood pressure 66 mm[Hg] Dr. Eboni Katz Work Phone: [facility] 07-05-2022 08:24-0400 Heart rate 76 /min Dr. Eboni Katz Work Phone: [facility] 07-05-2022 08:24-0400 Respiratory rate 18 /min Dr. Eboni Katz Work Phone: [facility] 07-05-2022 08:24-0400 SaO2% (BldA) [Mass fraction] 96 % Dr. Eboni Katz Work Phone: [facility] 07-05-2022 08:24-0400 Systolic blood pressure 142 mm[Hg] Dr. Eboni Katz Work Phone: [facility] 06-21-2022 10:41-0500 Body mass index (BMI) [Ratio] 33.9 kg/m2 Dr. Eboni Katz Work Phone: [facility] 06-21-2022 10:41-0500 Body weight 95.[address] Eboni Katz Work Phone: [facility] 09-18-2021 07:54-0400 Body height 167.[address] Eboni Katz Work Phone: [facility] Work Phone: 09-18-2021 07:54-0400 Body mass index (BMI) [Ratio] 34.9 kg/m2 Dr. Eboni Katz Work Phone: [facility] Work Phone: 09-18-2021 07:54-0400 Body temperature 97.2 [degF] Dr. Eboni Katz Work Phone: [facility] Work Phone: 09-18-2021 07:54-0400 Body weight 98.[address] Eboni Katz Work Phone: [facility] Work Phone: 09-18-2021 07:54-0400 Diastolic blood pressure 72 mm[Hg] Dr. Eboni Katz Work Phone: [facility] Work Phone: 09-18-2021 07:54-0400 Heart rate 76 /min Dr. Eboni Katz Work Phone: [facility] Work Phone: 09-18-2021 07:54-0400 Respiratory rate 18 /min Dr. Eboni Katz Work Phone: [facility] Work Phone: 09-18-2021 07:54-0400 SaO2% (BldA) [Mass fraction] 99 % Dr. Eboni Katz Work Phone: [facility] Work Phone: 09-18-2021 07:54-0400 Systolic blood pressure 148 mm[Hg] Dr. Eboni Katz Work Phone: [facility] Work Phone: 09-14-2021 08:18-0400 Body mass index (BMI) [Ratio] 34.8 kg/m2 Dr. Eboni Katz Work Phone: [facility] Work Phone: 09-14-2021 08:18-0400 Body weight 97.[address] Eboni Katz Work Phone: [facility] Work Phone: 09-14-2021 08:18-0400 Diastolic blood pressure 72 mm[Hg] Dr. Eboni Katz Work Phone: [facility] Work Phone: 09-14-2021 08:18-0400 Systolic blood pressure 150 mm[Hg] Dr. Eboni Katz Work Phone: [facility] Work Phone: 09-03-2021 08:51-0400 Body height 167.[address] Eboni Katz Work Phone: [facility] Work Phone: 09-03-2021 08:51-0400 Body mass index (BMI) [Ratio] 34.7 kg/m2 Dr. Eboni Katz Work Phone: [facility] Work Phone: 09-03-2021 08:51-0400 Body temperature 96.3 [degF] Dr. Eboni Katz Work Phone: [facility] Work Phone: 09-03-2021 08:51-0400 Body weight 97.[address] Eboni Katz Work Phone: [facility] Work Phone: 09-03-2021 08:51-0400 Diastolic blood pressure 70 mm[Hg] Dr. Eboni Katz Work Phone: [facility] Work Phone: 09-03-2021 08:51-0400 Heart rate 79 /min Dr. Eboni Katz Work Phone: [facility] Work Phone: 09-03-2021 08:51-0400 Respiratory rate 16 /min Dr. Eboni Katz Work Phone: [facility] Work Phone: 09-03-2021 08:51-0400 SaO2% (BldA) [Mass fraction] 98 % Dr. Eboni Katz Work Phone: [facility] Work Phone: 09-03-2021 08:51-0400 Systolic blood pressure 142 mm[Hg] Dr. Eboni Katz Work Phone: [facility] Work Phone: 08-08-2021 08:38-0400 Body height 167.[address] Eboni Katz Work Phone: [facility] Work Phone: 08-08-2021 08:38-0400 Body mass index (BMI) [Ratio] 34.7 kg/m2 Dr. Eboni Katz Work Phone: [facility] Work Phone: 08-08-2021 08:38-0400 Body temperature 97.6 [degF] Dr. Eboni Katz Work Phone: [facility] Work Phone: 08-08-2021 08:38-0400 Body weight 97.[address] Eboni Katz Work Phone: [facility] Work Phone: 08-08-2021 08:38-0400 Diastolic blood pressure 60 mm[Hg] Dr. Eboni Katz Work Phone: [facility] Work Phone: 08-08-2021 08:38-0400 Heart rate 71 /min Dr. Eboni Katz Work Phone: [facility] Work Phone: 08-08-2021 08:38-0400 Respiratory rate 14 /min Dr. Eboni Katz Work Phone: [facility] Work Phone: 08-08-2021 08:38-0400 SaO2% (BldA) [Mass fraction] 98 % Dr. Eboni Katz Work Phone: [facility] Work Phone: 08-08-2021 08:38-0400 Systolic blood pressure 120 mm[Hg] Dr. Eboni Katz Work Phone: [facility] Work Phone: 02-05-2017 08:08-0400 BMI (Body Mass Index) 31.19 kg/m2 Brennen Hopper MD [facility] Work Phone: 02-05-2017 08:08-0400 Body Temperature 96.7 [degF] Brennen Hopper MD [facility] Work Phone: 02-05-2017 08:08-0400 BP Diastolic 80 mm[Hg] Brennen Hopper MD [facility] Work Phone: 02-05-2017 08:08-0400 BP Systolic 132 mm[Hg] Brennen Hopper MD [facility] Work Phone: 02-05-2017 08:08-0400 BSA (Body Surface Area) 2.09 m2 Brennen Hopper MD [facility] Work Phone: 02-05-2017 08:08-0400 Height 173.99 cm Brennen Hopper MD [facility] Work Phone: 02-05-2017 08:08-0400 Pulse (Heart Rate) 79 /min Brennen Hopper MD [facility] Work Phone: 02-05-2017 08:08-0400 Respiratory Rate 16 /min Brennen Hopper MD [facility] Work Phone: 02-05-2017 08:08-0400 Weight 94.44 kg Brennen Hopper MD [facility] Work Phone: Encounters Encounter Date Encounter Type Care Provider Facility Start: 12-17-2024 ambulatory Eboni Cabral ty:[facility] Start: 11-23-2024 ambulatory Eboni Cabral ty:[facility] Start: 11-01-2024 End: 11-01-[address] Eboni Katz MD Work Phone: -Laboratory Specimen Start: 11-01-2024 End: 11-01-2024 Patient encounter procedure Ruby DRUMMOND -Laboratory Specimen Work Phone: Start: 11-01-2024 End: 11-01-20[facility] Start: 10-28-2024 End: 10-28-2024 Patient encounter procedure Ruby DRUMMOND -[facility] Work Phone: Start: 10-28-2024 End: 10-28-[address] Eboni Katz MD Work Phone: -[facility] Start: 10-27-2024 End: 10-27-[address] Eboni Katz MD -[facility] Work Phone: Start: 10-27-2024 End: 10-27-[address] Eboni Katz MD Work Phone: -[facility] Start: 10-27-2024 End: 10-27-2024 ambulatory Efewongbe Olee Facility:[facility] Start: 07-26-2024 End: 07-26-[address] Eboni Katz MD -[facility] Work Phone: Start: 07-26-2024 End: 07-26-2024 ambulatory Efewongbe Oleghe Facility:[facility] Start: 06-24-2024 End: 06-24-2024 ambulatory Efewongbe Oleghe Facility:[facility] Start: 06-17-2024 End: 06-17-2024 ambulatory Efewongbe Oleghe Facility:[facility] Start: 06-11-2024 End: 06-11-2024 ambulatory Efewongbe Oleghe Facility:[facility] Start: 06-03-2024 End: 06-03-2024 [facility] Start: 06-02-2024 End: 06-02-20[facility] Start: 04-19-2024 End: 04-19-2024 [facility] Start: 04-19-2024 End: 04-19-2024 ambulatory [facility] Start: 03-29-2024 End: 03-29-2024 [facility] Start: 03-02-2024 End: 03-02-2024 [facility] Start: 02-27-2024 End: 02-27-2024 [facility] Start: 02-24-2024 End: 02-24-2024 Emergency department patient visit Alex Ruthie Facility:[facility] Start: 02-23-2024 End: 02-23-2024 ambulatory [facility] Facility:[facility] Start: 02-20-2024 End: 02-20-2024 ambulatory [facility] Facility:[facility] Start: 01-01-2024 End: 01-01-2024 [facility]ulatory [facility] Start: 12-10-2023 End: 12-10-2023 ambulatory [facility] Facility:[facility] Start: 12-09-2023 End: 12-09-2023 ambulatory [facility] Start: 12-04-2023 End: 12-04-2023 ambulatory [facility] Facility:[facility] Start: 11-19-2023 End: 11-19-2023 [facility]ulatory [facility] Start: 05-21-2023 Non-patient / Non-visit Dr. Eboni Katz Work Phone: [facility] Start: 05-21-2023 End: 05-21-2023 Admission to same day surgery center Dr. Eboni Katz Work Phone: [facility] Start: 05-21-2023 End: 05-21-[address] Eboni Katz Work Phone: [facility] Work Phone: Start: 05-14-2023 End: 05-14-[address] Eboni Katz Work Phone: [facility] Work Phone: Start: 05-14-2023 End: 05-14-[address] Eboni Katz Work Phone: [facility] Work Phone: Start: 05-02-2023 End: 05-02-[address] Eboni Katz Work Phone: [facility] Work Phone: Start: 04-04-2023 Non-patient / Non-visit Dr. Eboni Katz Work Phone: [facility] Start: 03-28-2023 End: 03-28-[address] Eboni Katz Work Phone: [facility] Work Phone: Start: 03-28-2023 End: 03-28-[address] Eboni Katz Work Phone: [facility] Work Phone: Start: 03-11-2023 End: 03-11-[address] Eboni Katz Work Phone: [facility] Work Phone: Start: 02-10-2023 End: 02-10-[address] Eboni Katz Work Phone: [facility] Work Phone: Start: 10-24-2022 End: 10-24-[address] Eboni Katz Work Phone: [facility] Work Phone: Start: 10-24-2022 End: 10-24-[address] Eboni Katz Work Phone: [facility]Outpatient Breast Imaging Work Phone: Start: 10-07-2022 End: 10-07-2022 Encounter for general adult medical examination without abnormal findings Dr. Eboni Katz Work Phone: [facility] Start: 10-07-2022 End: 10-07-[address] Eboni Katz Work Phone: [facility] Work Phone: Start: 08-23-2022 Non-patient / Non-visit Dr. Eboni Katz Work Phone: [facility] Start: 08-23-2022 End: 08-23-2022 Admission to same day surgery center Dr. Eboni Katz Work Phone: [facility]-Endoscopy Start: 08-23-2022 End: 08-23-[address] Eboni Katz Work Phone: [facility] Work Phone: Start: 07-05-2022 End: 07-05-[address] Eboni Katz Work Phone: [facility] Start: 06-21-2022 Non-patient / Non-visit Dr. Eboni Katz Work Phone: [facility] Start: 09-18-2021 End: 09-18-[address] Eboni Katz Work Phone: [facility]-Laboratory, Specimen Start: 09-18-2021 End: 09-18-[address] Eboni Katz Work Phone: [facility] Start: 09-14-2021 End: 09-14-[address] Eboni Katz Work Phone: [facility] Start: 09-03-2021 End: 09-03-[address] Eboni Katz Work Phone: [facility] Start: 08-15-2021 End: 08-15-[address] Eboni Katz Work Phone: [facility]patient [facility] Start: 08-08-2021 End: 08-08-[address] Eboni Katz Work Phone: [facility] Start: 10-06-[address] Eboni Katz Work Phone: [facility] Start: 03-31-2018 Patient encounter procedure K[facility]ERON ([facility] Procedures Date Procedure Procedure Detail Performing Clinician Start: 11-01-[address] e detection [address] Eboni Katz MD Work Phone: Start: 11-01-2024 Measurement of occul t blood in stool specimen using immunoassay Dr. Eboni Katz MD Work Phone: Start: 11-01-[address] Eboni Katz MD Work Phone: Start: 10-27-2024 Vitamin D, 25-hydrox y measurement [...] Work Phone: Start: 08-23-[address] Sharon Allenzacherylenore Work Phone: Start: 08-15-2021 Bilateral mammography Dhara [...] Treatment Date Care Activity Detail Author Start: 11-01-2024 Giardia Antigen (MICHELLE) Giardia Antigen (MICHELLE) [facility] Start: 11-01-2024 Ova and Parasites Ova and Parasites [facility] Start: 11-01-2024 Procedure [facility] Start: 11-01-2024 Elastase.pancreatic [Presence] in Stool [facility] Start: 11-01-2024 Protein measurement [facility] Start: 11-01-2024 [facility] Start: 10-27-2024 CBC W Auto Differential panel - Blood [facility] Start: 10-27-2024 Comprehensive metabolic 2000 panel - Serum or Plasma [facility] Start: 10-27-2024 T4 free measurement [facility] Start: 10-27-2024 Thyroid stimulating hormone measurement [facility] Start: 10-27-2024 Vitamin D, 25-hydroxy measurement [facility] Start: 05-21-2023 Patient discharge [facility] Start: 04-04-2023 Patient referral [facility] Work Phone: Start: 10-07-2022 Patient referral [facility] Work Phone: Start: 08-23-2022 Patient discharge [facility] Start: 09-14-2021 Patient referral [facility] Work Phone: Start: 02-05-2017 End: 02-25-2017 Follow Up Appt 6 weeks Follow Up Appt 6 weeks [facility] Work Phone: Start: 01-06-2017 End: 02-25-2017 Follow Up Appt 1 month Follow Up Appt 1 month [facility] Work Phone: Start: 12-25-2016 End: 02-25-2017 Follow up Appt 1 week Follow up Appt 1 week [facility] Work Phone: Start: 12-25-2016 End: 12-25-2016 [facility], [address] [place] [address], [id number] [facility] Work Phone: Start: 12-05-2016 End: 12-25-2016 Follow Up Appt Other Follow Up Appt Other [facility] Work Phone: Start: 07-10-2016 End: 07-12-2016 Follow Up Appt 6 months Follow Up Appt 6 months [facility] Work Phone: Start: 06-26-2016 End: 07-12-2016 Follow Up Appt 2 weeks Follow Up Appt 2 weeks [facility] Work Phone: Start: 06-05-2016 End: 07-12-2016 Follow up Appt 3 weeks Follow up Appt 3 weeks [facility] Work Phone: Start: 05-22-2016 End: 07-12-2016 Follow Up Appt 2 weeks Follow Up Appt 2 weeks [facility] Work Phone: Start: 05-08-2016 End: 05-17-2016 Follow Up Appt 2 weeks Follow Up Appt 2 weeks [facility] Work Phone: Start: 04-24-2016 End: 05-17-2016 Follow Up Appt 2 weeks Follow Up Appt 2 weeks [facility] Work Phone: Start: 04-09-2016 End: 05-17-2016 Follow Up Appt 2 weeks Follow Up Appt 2 weeks [facility] Work Phone: Alanine aminotransfe rase [Enzymatic activity/volume] in Serum or Plasma [facility] Albumin [Mass/volume ] in Serum or Plasma [facility] Alkaline phosphatase [Enzymatic activity/volume] in Serum or Plasma [facility] Anion gap in Serum o r Plasma [facility] Bilirubin, total measurement [facility] BUN/Creatinine ratio [facility] Calcium [Mass/volume ] in Serum or Plasma [facility] Carbon dioxide, tota l [Moles/volume] in Central venous blood [facility] CBC W Auto Different ial panel - Blood [facility] Clostridioides diffi cile DNA [Presence] in Unspecified specimen by ELIZABETH with probe detection [facility] Colonoscopy [facility] Creatinine [Mass/vol ume] in Serum or Plasma [facility] Elastase.pancreatic [Presence] in Stool [facility] Erythrocyte mean corpuscular volume determination [facility] Giardia lamblia anti gen assay [facility] Glucose [Mass/volume ] in Serum or Plasma [facility] Hematocrit [Volume Fraction] of Blood [facility] Hemoglobin [Mass/vol ume] in Blood [facility] Hemoglobin A1c/Hemoglobin.total in Blood [facility] Leukocytes [#/volume ] in Blood [facility] Lipid 1996 panel - S marlene or Plasma [facility] Mean corpuscular hem oglobin concentration determination [facility] Mean corpuscular hem oglobin determination [facility] Measurement of occul t blood in stool specimen using immunoassay [facility] Measurement of renal function [facility] Neutrophil count [facility] Neutrophil percent differential count [facility] NM Heart Views W str ess and W radionuclide IV [facility] Nucleic acid assay [facility] Ova OR parasites identification [facility] Patient Education [facility] Work Phone: Patient referral [facility] Work Phone: Platelets [#/volume] in Blood [facility] Potassium measurement [facility] Protein measurement [facility] Red blood cell count [facility] Red cell distributio n width determination [facility] Serum chloride measurement [facility] Sodium measurement [facility] Total protein measurement [facility] Urea nitrogen [Mass/ volume] in Serum or Plasma [facility] Immunizations Immunization Date Immunization Notes Care Provider Gurwinder larose 05-20-2024 Covid (Isac & FilterSure) Dr. Eboni Katz MD Work Phone: [facility] 05-20-2024 Seasonal trivalent influenza vaccine, adjuvanted, preservative free Dr. Eboni Katz MD Work Phone: [facility] 02-10-2023 RSV Adult Recombinan t (Arexvy) Dr. Eboni Katz MD Work Phone: [facility] 01-27-2023 Covid (Spikevax) Dr. Lázaro Katz Work Phone: [facility] 01-27-2023 Influenza High-Dose Quadrivalent Dr. Eboni Katz Work Phone: [facility] 01-27-2023 influenza, injectabl e, quadrivalent, preservative free Dr. Eboni Katz MD Work Phone: [facility] 01-27-2023 Pfizer Covid-19 (Comirnaty) Dr. Eboni Katz MD Work Phone: [facility] 01-22-2022 Covid Pfizer Bivalen t Booster Dr. Eboni Katz MD Work Phone: [facility] 01-22-2022 influenza, injectabl e, quadrivalent, preservative free Dr. Eboni Katz MD Work Phone: [facility] 04-02-2021 Covid (Pfizer) Dr. Eboni Katz MD Work Phone: [facility] 07-20-2020 Covid (Pfizer) Dr. Eboni Katz Work Phone: [facility] 06-29-2020 Covid (Pfizer) Dr. Eboni Katz Work Phone: [facility] 02-09-2020 influenza, injectabl e, quadrivalent, preservative free Dr. Eboni Katz MD Work Phone: [facility] 02-16-2019 influenza, injectabl e, quadrivalent, preservative free Dr. Eboni Katz Work Phone: [facility] 02-16-2019 influenza, seasonal, injectable Dr. Eboni Katz Work Phone: [facility] 02-16-2019 Fluad 2019-20 65yr up(PF)45 mcg(15 mcgx3)/0.5 mL intramuscular syringe (flu vac Dr. Eboni Katz Work Phone: [facility] Work Phone: 02-19-2016 influenza, high dose seasonal, preservative-free Dr. Eboni Katz MD Work Phone: [facility] 02-12-2016 influenza, injectabl e, quadrivalent, preservative free Dr. Eboni Katz Work Phone: [facility] 02-12-2016 influenza, seasonal, injectable Dr. Eboni Katz Work Phone: [facility] 01-19-2015 influenza, injectabl e, quadrivalent, preservative free Dr. Eboni Katz MD Work Phone: [facility] 11-18-2014 pneumococcal polysaccharide vaccine, [address] Eboni Katz MD Work Phone: [facility] 01-19-2014 influenza, injectabl e, quadrivalent, preservative free Dr. Eboni Katz MD Work Phone: [facility] 02-04-[address] Eboni Katz Work Phone: [facility] 03-30-[address] Kentrell Katz Work Phone: [facility] Work Phone: 03-30-2011 pneumococcal vaccine , unspecified formulation Dr. Eboni Katz Work Phone: [facility] 03-03-2008 influenza, injectabl e, quadrivalent, preservative free Dr. Eboni Katz MD Work Phone: [facility] 06-19-2004 TD(adult) unspecifie d formulation Dr. Eboni Katz MD Work Phone: [facility] 06-24-1990 hepatitis B vaccine, adult dosage Dr. Eboni Katz MD Work Phone: [facility] 12-24-1989 hepatitis B vaccine, adult dosage Dr. Eboni Katz MD Work Phone: [facility] 11-19-1989 hepatitis B vaccine, adult dosage Dr. Eboni Katz MD Work Phone: [facility] 02-19-1989 TD(adult) unspecifie d formulation Dr. Eboni Katz MD Work Phone: [facility] Payers Date Payer Category Payer Private Health Insurance [id number] 2023 Self-pay [id number] 2016 Private Health Insurance [id number] 2011 Medicare [id number] Unknown [id number] 2.16.8 [id number] Unknown [id number] 2.16.8 [id number] Unknown [id number] 2.16.8 40.1.478941.3.579.2.462 Unknown [id number] 2.16.8 40.1.857016.3.579.2.462 Unknown [id number] 2.16.8 40.1.863092.3.579.2.462 Unknown [id number] 2.16.8 40.1.316602.3.579.2.462 Unknown [id number] 2.16.8 40.1.982194.3.579.2.462 Unknown [id number] 2.16.8 40.1.907364.3.579.2.462 Unknown [id number] 2.16.8 40.1.150969.3.579.2.462 Unknown [id number] 2.16.8 40.1.944266.3.579.2.462 Unknown [id number] 2.16.8 40.1.317618.3.579.2.462 Unknown [id number] 2.16.8 40.1.633057.3.579.2.462 Unknown [id number] 2.16.8 40.1.239093.3.579.2.462 Unknown [id number] 2.16.8 40.1.301399.3.579.2.462 Unknown [id number] 2.16.8 40.1.375736.3.579.2.462 Unknown [id number] 2.16.8 40.1.138585.3.579.2.462 Unknown [id number] 2.16.8 40.1.203236.3.579.2.462 Unknown [id number] 2.16.8 40.1.016804.3.579.2.462 Unknown [id number] 2.16.8 40.1.212995.3.579.2.462 Unknown [id number] 2.16.8 40.1.092783.3.579.2.462 Unknown [id number] 2.16.8 40.1.211814.3.579.2.462 Unknown [id number] 2.16.8 40.1.152531.3.579.2.462 Unknown [id number] 2.16.8 40.1.595756.3.579.2.462 Unknown [id number] 2.16.8 40.1.019842.3.579.2.462 Unknown [id number] 2.16.8 40.1.489697.3.579.2.462 Unknown [id number] 2.16.8 40.1.543226.3.579.2.462 Unknown [id number] 2.16.8 40.1.339325.3.579.2.462 Social History Date Type Detail Facility Start: 08-08-2021 End: 05-14-2023 Tobacco smoking status NHIS Unknown if ever smoked [facility] Start: 08-08-2021 None [facility] Start: 08-08-2021 Homeless [facility] Start: 10-25-2019 Non-smoker [facility] Start: 1945 Sex Assigned At Female [facility] Start: 03-24-2024 Tobacco smoking status NHIS Never smoked tobacco (finding) [facility] NEGATED: Highlighted row [facility] Medical Equipment Procedure Code Equipment Code Equipment Origin al Text Equipment Identifier Dates Excision, lymph node Ligation clip, metallic [id number] FDA Start: 05-21-2023 asymmetric patella FDA Start: [...] Assessment Result Facility 05-21-2023 Cognitive function Voice/Name [facility] Work Phone: 08-23-2022 Cognitive function Voice/Name [facility] Work Phone: 08-23-2022 Cognitive function Patient Oricarlos tello Person;Place;Time [facility] Work Phone: Clinical Notes 08-23-2022 to 07-26-2024 Note Date & Type Note Facility 07-26-2024 Evaluation note Diagnosis Onset Date Resolution Borderline type 2 diabetes mellitus chronic July 26 8:57am Hyperlipidemia chronic July 26, 2024 8:57am Hypertension chronic July 26, 2 025 8:57am Restless legs syndrome chronic Ap ril 2024 8:57am [facility] Work Phone: 1(232) 497-894904-07-2025 Evaluation note* Diagnosis Onset Date Resolution Status Admit Date Borderline type 2 diabetes mellitus chronic July 26, 2024 8:57am Hyperlipidemia chronic July 26, 2024 8:57am Hypertension chronic July 26, 2 025 8:57am Restless legs syndrome chronic Ap ril 2024 8:57am GI bleed acute October 27, 2024 9:28am Borderline type 2 diabetes mellitus chronic October 27, 2024 9 :28am Dyspnea on exertion chronic October 27, 2024 9:28am Hypertension chronic October 27 9:28am Obstructive sleep apnea chronic J leroy2024 9:28am Restless leg syndrome chronic [place] 2024 9:28am Abdominal pain acute October 28, 2024 12:45pm Dark stools acute October 28 12:45pm [facility] Work Phone: 1(117) 813-475012-09-2024 [facility] Medical Records Department [address] [place] [address] History Physical Exam 03/29/24 0743 MR#: [id number] Acct: [id number] Name: GEORGIA RO Rep #: [id number] : 1945 78 From: [facility] PCP: Dr. Eboni Katz MD Status:[facility] Location: [place] [address] History and Physical Date of Admission: 03/29/24 HPI Chief Complaint: +FOBT Details: GEORGIA RO, is a 78 F who presents to the office today for establishment with [facility]. For a month now pt has [...] pain, constipation, or diarrhea, CT abdomen pelvis 11.09.11; Findings which may be consistent with nonspecific [...] Appearance: average body habitus and well nourished [facility] Head: normal to inspection Ears: hearing grossly [...] CC: Dr. Eboni Allen (more content not included)...[facility] 05-21-2023 History and physical note Author Andre Machado [facility] May 21, 2023 8:02am Note Date/Time May 21, 2023 8 :02am [facility] Medical Records Department [address] [place] [address] H&P Exam - Surgical 05/21/23 0800 MR#: [id number] Acct: [id number] Name: GEORGIA RO Rep #:[id number] : 1945 77 From: Andre melvin MD PCP: Dr. Eboni Katz MD Status[place] [facility] [place] [address] HPI - General HPI Narrative GEORGIA RO, [...] safe at home: Yes additional social history: [facility] SUN EXPOSURE: FREQUENTLY ROS Constitutional Constitutional: [...] willing to proceed. Andre Machado MD Pager: [facility] [address] [place] [address], [address] [place] [address] Office: 05/21/23 0802 <Electronically signed by Andre Machado MD> Cosigner Signature (if applicable): CC: Dr. Andre Machdao MD; Dr. Eboni Katz MD~ Signed [facility] Work Phone: 1(837) 482-130401-31-2024 Procedure [facility] 08-23-2022 [facility]23 [facility] Andre Machado [facility] May 21, 2023 9:36am Note Date/Time May 21, 2023 9 :34am [facility] Medical Records Department [address] [place] [address] Instructions for Home/Discharge Instructions 05/21/23 0933 MR#: [id number] Acct: [id number] Name: GEORGIA RO Rep #:[id number] : 1945 77 From: Andre melvin MD PCP: Dr. Eboni Katz MD Status:R [facility] Discharge Instructions Diet Discharge Diet: Light diet [...] to schedule 2 week follow up appointment. [phone] Test Results: Test results from this visit [...] can be placed): Home, Self Care 05/21/23 5436<Electronically signed by Andre Machado MD>Andre Machado MD CC: Dr. Eboni Katz MD ~ Signed [facility] Work Phone: Evaluation noteNo assessment information available [facility] Work Phone: Evaluation note* Diagnosis Onset Date Resolution Status Shortness of breath acute Bilateral lower extremity edema chronic Chronic sinusitis chronic Hypertension chronic [facility] Work Phone: Evaluation note* Diagnosis Onset Date Resolution Status Shortness of breath acute Bilateral lower extremity edema chronic Chronic sinusitis chronic Hypertension chronic Lymphadenopathy acute Lymphadenopathy acute [facility] Work Phone: Evaluation note* Diagnosis Onset Date Resolution Status Sinusitis acute Borderline type 2 diabetes mellitus chronic Depression with anxiety 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 Dupuytren's contracture 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 Hypertension chronic Restless legs syndrome chron ic Encounter for screening for malignant neoplasm of colo n acute [facility] Work Phone: Evaluation note* Diagnosis Onset Date Resolution Status Sinusitis acute Borderline type 2 diabetes mellitus chronic Depression with anxiety 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 Dupuytren's contracture 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 Hypertension chronic Restless legs syndrome chron ic Encounter for screening for malignant neoplasm of colo n acute Health care maintenance acut e Benign essential hypertension chronic Borderline type 2 diabetes mellitus chronic Dupuytren's contracture 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 GERD (gastroesophageal reflux disease) chronic [facility] Work Phone: Evaluation note* Diagnosis Onset Date Resolution Status Benign essential hypertension chronic Borderline type 2 diabetes mellitus chronic Restless legs syndrome chron ic Left axillary pain acute [facility] Work Phone: Evaluation note* Diagnosis Onset Date Resolution Status Benign essential hypertension chronic Borderline type 2 diabetes mellitus chronic Restless legs syndrome chron ic Left axillary pain acute Acute sinusitis acute Sinusitis acute Borderline type 2 diabetes mellitus chronic Hypertension chronic Restless leg syndrome chroni c [facility] Work Phone: Evaluation note* Diagnosis Onset Date Resolution Status Benign essential hypertension chronic Borderline type 2 diabetes mellitus chronic Restless legs syndrome chron ic Left axillary pain acute Acute sinusitis acute Sinusitis acute Borderline type 2 diabetes mellitus chronic Hypertension chronic Restless leg syndrome chroni c Left axillary pain acute Lymphadenopathy acute [facility] Work Phone: History and physical note Author Dr. Machado [facility] August 23, 2022 9:07am Note Date/Time August 23, 2022 9:07am [facility] Medical Records Department [address] [place] [address] History & Physical Exam 08/23/22904 MR#: [id number] Acct: [id number] Name: GEORGIA RO Rep #:[id number] : 1945 76 From: Andre melvin MD PCP: Dr. Eboni Katz MD Status:R [facility] Location: [place] [address] HPI - General HPI Narrative GEORGIA RO, [...] safe at home: Yes additional social history: [facility] SUN EXPOSURE: FREQUENTLY Past Medical/Surgical History [...] Surgery/Stents/Etc.: No Hx Stress Test: Yes (04/02 [facility]) Hx Pain in Legs when Walking/Leg [...] history Discharge Is Pt Admitted From a Long-Term, or a Half-Way: No After D/C, Where Do you Plan [...] proceed with procedure. Andre Machado MD Pager: [facility] [address] [place] [address], [address] [place] [address] Office: Surgery Risks - Colonoscopy Risks Include but are not Limited To: Risks include but are not limited to: Bleeding, perforation requiring further surgery, inability to complete colonoscopy requiring barium enema. 08/23/22 0907 <Electronically signed by Andre Machado MD> Cosigner Signature (if applicable): CC: Dr. Andre Machado MD; Dr. Eboni Katz MD~ Signed [facility] Work Phone: Hospital Discharge instructions Additional Instructions Alternate ibuprofen and Tylenol for pain, oxycodone for breakthrough pain. Implant Used?: [facility] Work Phone: Reason for referral (narrative)No reason for [facility] Work Phone: Summary Purpose Family History No [...] Yes August 08, 2021 8:38am Power of Wrapping Clerk Yes August 08 8:38am Advance Directive Response Recorded Date/ Time Advance Directives Yes September 14 8:50am Living Will Yes September 14, 2021 8 :50am Power of Wrapping Clerk Yes September 14, 2021 8:50am Advance Directive Response Recorded Date/ Time Name of Medical Power of Wrapping Clerk SPOUSE August 20, 2022 11:48am Advance Directives Yes September 14 8:50am Living Will Yes August 20, 2022 11 :48am Power of Wrapping Clerk Yes August 20, 2022 11:48am Advance Directive Response Recorded Date/ Time Advance Directives Yes September 14 7:50am Living Will Yes August 20, 2022 10 :48am Power of Wrapping Clerk Yes August 20, 2022 10:48am Advance Directive Response Recorded Date/ Time Advance Directives Yes September 14 7:50am Living Will Yes Melissa 11th, 20 24 8:49am Power of Wrapping Clerk Yes May 01, 2023 8:49am Advance Directive Response Recorded Date/ Time Name of Medical Power of Wrapping Clerk May 01, 2023 8:49am Advance Directives Yes September 14 7:50am Living Will Yes May 01 8:49am Power of Wrapping Clerk Yes May 01, 2023 8:49am Advance Directive [...] LUMP LEFT BREAST Swelling in legs 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..] Dates Dr. Eboni Katz MD Primary Care P rovider, Attending Provider, Referring Provider Active Team Status: [...] Care Provider, Refer ring Provider Active Julian DRUMMOND PA Attending Provider Active Team Status: Active Member Role Status Dates Dr. Eboni Katz MD Primary Care Provider Active Dr. Andre Machado MD Attending Pr timaer, Referring Provider, Other Provider Active Team Status: [...] October 28, 2024 End: October 28, 2024 Team Status: Inactive Member Role/Relationship Status [...] Katz MD Primary Care Provider Active Start: November 01, 2024 BHANU Muñoz Attending Provider Active Start: November 01, 2024 BHANU Muñoz Referring Provider Active Start: November 01, 2024 Team Status: Inactive Member Role/Relationship Status Dates Dr. Eboni Katz MD Primary Care Provider Active Start: November 01, 2024 End: November 01, 2024 BHANU Muñoz Attending Provider Active Start: November 01, 2024 End: November 01, 2024 BHANU Muñoz Referring Provider Active Start: November 01, 2024 End: November 01, 2024 FOR RECORDS PERTAINING TO PATIENTS WHO [...] BE BASED ON THE PRIMARY CLINICAL RECORDS. [facility] [employer] [facility]. provides no warranty or guarantee of the accuracy or completeness of information in this document.
--- NOTE | 2024-11-23 17:25 | STRESSREP ---
Stress Test Report Pharmacologic myocardial perfusion stress test. 79-year-old lady with a history of dyspnea on exertion Resting EKG demonstrates sinus rhythm with a rate of 68 bpm. Resting blood pressure is 134/62 mmHg. 0.4 mg of regadenoson was infused per usual protocol followed by rapid intravenous saline flush injection. Continuous EKG monitoring was performed. The maximum heart rate was 94 bpm which was 66% of max impacted heart rate the maximum workload was 1 metabolic equivalent. At rest there were no ST or T wave changes noted to suggest ischemia and at peak infusion nonspecific ST changes were noted which did not meet the criteria for ischemia. No clinical angina is noted. The final blood pressure was 116/60 mmHg. Myocardial perfusion protocol. 13.5 mCi of technetium 99m sestamibi was injected at rest. 0.4 mg of regadenoson was infused per usual protocol. At peak infusion 42 point mCi of technetium 99m sestamibi was injected stress images were obtained stress and rest images were reconstructed and compared in the short axis vertical long and horizontal long axis. Gated images were also obtained. Perfusion SPECT analysis: Review of the stress images demonstrate normal uptake of tracer noted in all areas of the myocardium. The resting images similar demonstrated normal uptake of tracer noted in all areas of the myocardium. No areas of reversibility are noted to suggest ischemia and no previous infarct is noted. Gated SPECT analysis: The gated ejection fraction is 78%. Conclusion: Normal pharmacologic myocardial perfusion stress test. Preserved ejection fraction.
== END | disposition home or self-care (01) ==
LOC: CVS 06:32
PROVIDERS: PCP Internal Medicine; Referring Provider Internal Medicine; Visit Provider Internal Medicine
DX: R06.09 Other forms of dyspnea (principal); I10 Essential (primary) hypertension; E78.00 Pure hypercholesterolemia, unspecified; R73.03 Prediabetes
CPT/HCPCS: 78452; 93017; A9500; A4216; J2785

== ENCOUNTER 2024-12-17 05:33 | Day surgery (SDC) | payer MEDICARE, SELFPAY ==
--- NOTE | 2024-12-16 16:38 | PAT.ANE_ITS ---
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 When Was Last Pacemaker Check QUESTION #4 FULL TEXT: You/Your Family Experience fever (hyperthermia) with Anesthesia Last Oral Intake Last Oral intake: Last Oral Intake NPO since Meds taken in AM with sips of water? 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 Female Yes 12/16/24 09:08 HX of Motion Sickness No 12/16/24 09:08 HX of N/V After Surgery Yes 12/16/24 09:08 Non-Smoker Yes 12/16/24 09:08 Duration of Surgery greater No 12/16/24 09:08 than 60 minutes Number of Risk Factors 3 12/16/24 09:08 PONV Score Moderate Risk 12/16/24 09:08 Height & Weight Height & Weight: Anesthesia: Height & Weight Height 5 ft 6 in 10/27/24 09:41 Respiratory Assessment Respiratory Assessment - raw cheese worker: Respiratory Tract Infection Hx - raw cheese worker Hx Respiratory Tract Infection No 12/16/24 09:08 STOP Sleep Apnea STOP Sleep Apnea - raw cheese worker: STOP Sleep Apnea - raw cheese worker Hx Hypertension Yes: on meds 12/16/24 09:08 Hx Sleep Apnea No 12/16/24 09:08 CPAP No 03/29/24 09:03 BIPAP No 03/24/24 16:09 Do you snore loudly (louder No 12/16/24 09:08 than talking or can be heard Do you often feel tired/ No 12/16/24 09:08 fatigued/ sleepy during daytime? Has anyone observed you stop No 12/16/24 09:08 breathing during sleep? STOP Results Negative 12/16/24 09:08 QUESTION #5 FULL TEXT : Do you snore loudly (louder than talking or can be heard through closed doors)? 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 Specify any problems Hx of Preganancy in last 3 No 12/16/24 09:08 Months Nurse Filling Out Transfusion JZOLLINGE 12/16/24 09:08 & Questions: Date: 12/16/24 12/16/24 09:08 Time: 09:10 12/16/24 09:08 Patient unable to answer at this time (ie. 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: /Reproductive Hx- raw cheese worker Hx Now No 12/16/24 09:08 Gestational Age (in weeks): EDC: Hx Hx Para Hx Section SAB No 12/16/24 09:08 [facility] Medical History (Updated 12/16/24 @ 09:08 by Etta Ceja) Bladder disease Difficulty swallowing History of hiatal hernia Gastric reflux History of stress test Dyspnea on exertion Osteopenia PONV (postoperative nausea and vomiting) GI bleed Dark stools Left renal mass Abnormal CT of the abdomen Dupuytren contracture of right hand LLQ pain Obesity (BMI 30-39.9) Small lymphocytic lymphoma Wears glasses Wears partial dentures Wears dentures Seasonal allergies Non-smoker Sinusitis GERD (gastroesophageal reflux disease) Borderline type 2 diabetes mellitus Right hand pain Hyperglycemia Chronic sinusitis Shortness of breath Bilateral lower extremity edema Flu vaccine need Health care maintenance Tinnitus H/O tinnitus Chronic vertigo Cataracts, bilateral Back problem Actinic keratosis Cancer of skin of left ear Dupuytren's contracture Open cat bite of hand Cat bite of right hand with infection Restless leg syndrome Arthritis Vertigo High cholesterol Chronic hypertension Generalized osteoarthritis Home Medications ?Medication ?Instructions ?Recorded ?Last Taken ?Type multivitamin with iron 1 tab PO DAILY 03/31/1312/12 History biotin 2,500 mcg capsule 2,500 mcg PO ONCE 07/15/17 1 05/29/23 History celecoxib 200 mg capsule (Celebrex) 200 mg PO DAILY OK N pain #90 caps 09/16/23 03/28/24 Rx potassium chloride 20 mEq 20 meq PO BID #180 tabs 11/1103/28/24 Rx tablet,extended release hydrochlorothiazide 25 mg tablet See Rx Instructions . Route 06/28/24 Unknown Rx .COMPLEX #90 tabs ropinirole 0.5 mg tablet 0.5 mg PO TID #360 tabs 06/19 Unknown Rx losartan 100 mg tablet 100 mg PO DAILY 3 months #90 tabs 09/06/24 Unknown Rx oxybutynin chloride 10 mg 10 mg PO QDAY #90 tabs 09/06 Unknown Rx tablet,extended release 24 hr amlodipine 5 mg tablet 7.5 mg (1.5 x 5 mg) PO DAILY 3 09/20/24 Unknown Rx months #135 tabs metformin 500 mg tablet,extended 500 mg PO BID #90 tab s 10/04/24 Unknown Rx release 24 hr acetaminophen 325 mg tablet 650 mg PO Q4H PRN PRN Pain Or Fever 10/27/24 Unknown History aspirin 81 mg tablet 81 mg PO QDAY 10/27/24 Unkno wn History pantoprazole 40 mg tablet,delayed 40 mg PO BID #180 ta bs 10/27/24 Unknown Rx release Allergy/AdvReac Type Severity Reaction Status Date / Time lisinopril (From Zestril) AdvReac Intermediate Cough Verified 12/16/24 08:57 hydrocodone bitartrate (From AdvReac Mild Itching Verified 12/16/24 08:57 Vicodin) Family History Father Myocardial infarction Heart disease Hypertension Mother Breast cancer Grandmother Breast cancer Sister Lung cancer Seizures Surgical History (Updated 10/27/24 @ 09:41 by Catherine Hou MA) History of surgical removal of skin lesion History of lymph node excision History of left knee replacement History of colonoscopy History of lymph node biopsy History of cataract extraction H/O vaginal hysterectomy History of hysterectomy Cancer of skin of left ear Cat bite of right hand including fingers with infection Dupuytren contracture cancer removed S/P appendectomy S/P arthroscopy of knee History of total right knee replacement Social History Smoking Status: Never smoker alcohol intake: never substance use type: does not use caffeine: Yes what type of physical activity do you participate in: none seatbelt use: always do you feel safe at home: Yes additional social history: [facility] SUN EXPOSURE: FREQUENTLY Audit: Pertinent Findings Pertinent Findings EKG Perinent findings: 02/24/2024. Normal sinus rhythm. Stress test pertinent findings: 11/23/2024. EF of 78%. No areas of reversibility to suggest ischemia. No previous infarct. Recommendation Anesthesia Recommendation Anesthesia recommendation: OPTIMIZED for anesthesia
[2024-12-17] VITALS (9 sets, daily range): BP systolic 84–117; BP diastolic 54–65; PULSE 60–69; RESP 16–18; TEMP 36.1–36.6; O2SAT 99–100; BMI 31.6
--- OUTSIDE RECORDS SUMMARY | 2024-12-17 05:39 | XMS RPT_ITS | CCD ---
Author Organization [facility] Care Team Providers Care Carrier Operator Name Role Phone Brennen Hopper MD Unavailable KAMERON BERNARDO (RN CORRECTIONS) Unavailable Unavailable Dr. Eboni Katz Primary Care [...] [phone] Dr. Andre Machado Attending Provider BAHNU Weeks Attending Provider [phone] Dr. Andre Machado Referring Provider Dr. Andre Machado Other Provider Gianna OLEARY, Dr. Lyn Primary Care Provider Gianna OLEARY, Dr. Lyn Attending Provider Gianna OLEARY, Dr. Lyn Referring Provider [phone] Ruby Abreu Attending Provider Ruby Abreu Referring Provider Gianna OLEARY, Dr. Lyn Primary Care Provider Irving OLEARY, Dr. Perry Attending Provider Gianna OLEARY, Dr. Lyn Attending Provider [phone] Gianna OLEARY, Dr. Lyn Referring Provider [phone] Gianna OLEARY, Dr. Lyn Other Provider [phone] Mattie OLEARY, Dr. Mclaughlin Attending Provider Ruby Parekh Attending Unavailable Oleghe, Efewongbe Primary Care Unavailable Oleghe, Efewongbe Referring Unavailable Oleghe, Efewongbe Primary Care Unavailable Oleghe, Efewongbe Referring Unavailable Oleghe, Efewongbe Attending Unavailable Oleghe, Efewongbe Referring Unavailable Oleghe, Efewongbe Attending Unavailable Oleghe, Efewongbe Primary Care Unavailable Oleghe, Efewongbe Referring Unavailable Oleghe, Efewongbe Consulting Unavailable Oleghe, Efewongbe Primary Care Unavailable Arnoldo Phelps Attending Unavailable Oleghe, Efewongbe Referring Unavailable Jaden, Moustapha Attending Unavailable Oleghe, Efewongbe Primary Care Unavailable Oleghe, Efewongbe Primary Care Unavailable Oleghe, Efewongbe Referring Unavailable Oleghe, Efewongbe Attending Unavailable Alex Hendricks Attending Unavailable Oleghe, Efewongbe Primary Care Unavailable Oleghe, Efewongbe Attending Unavailable Oleghe, Efewongbe Primary Care Unavailable Oleghe, Efewongbe Referring Unavailable Ruby Parekh Attending Unavailable Ruby Parekh Referring Unavailable Oleghe, Efewongbe Primary Care Unavailable Friend, Moustapha Attending Unavailable Friend, Moustapha Consulting Unavailable Oleghe, Efewongbe Primary Care Unavailable Oleghe, Efewongbe Referring Unavailable Oleghe, Efewongbe Attending Unavailable Oleghe, Efewongbe Primary Care Unavailable Oleghe, Efewongbe Referring Unavailable Oleghe, Efewongbe Primary Care Unavailable Oleghe, Efewongbe Referring Unavailable Isckarus, Mansour Attending Unavailable Oleghe, Efewongbe Referring Unavailable Oleghe, [...] Care Unavailable Oleghe, Efewongbe Primary Care Unavailable Isckarus, Mansour Referring Unavailable Isckarus Mansour Attending Unavailable Oleghe, Efewongbe Referring Unavailable Oleghe, Efewongbe Primary Care Unavailable AustenusYangour Attending Unavailable Oleghe, Efewongbe Referring Unavailable Ruby Parekh Attending Unavailable Oleghe, Efewongbe Primary Care Unavailable Ruby Parekh Attending Unavailable Oleghe, Efewongbe Primary Care Unavailable Oleghe, Efewongbe Referring Unavailable Allergies Allergy Classification Reported Allergen(s) Allergy Type Date of Onset Reaction(s) Facility (1 source) acetaminophen / HYDROcodone Drug Allergy 6 red-itchy [facility] Work Phone: (1 source) lisinopril Drug Allergy 6 cough [facility] Work Phone: (1 source) Acetaminophen / HYDROcodone; Translations: [HYDROCODONE-ACET AMINOPHEN] Drug Allergy [address] [facility] Repository (16 sources) Lisinopril; Translations: [LISINOPRIL] Drug Allergy 5 [facility], Cough [facility] Repository (1 source) OTHER; Translations: [OTHER] Propensity to adverse reactions (disorder) 6 [facility] Repository (15 sources) HYDROcodone; Translations: [hydrocodone bitartrate] Drug Allergy [address] [facility] Medications Current Medications Medication Drug Class(es) [...] 2019 8:08am biotin 2.5 mg oral capsule (14 sources) Start: 07-15-2017 take 1 capsule by mouth once Biotin 2,500 mcg capsule Active 2500 ug PO ONCE July 15, 2017 12:00am Ipratropium (8 sources) Anticholinergic Start: 09-03-2021 take 1 spray(s) nasal route twice daily Ipratropium [place] Active 2 SPRAY INTRANASAL TWICE A DAY September 03, 2021 9:06am administer into each nostril Start: 09-03-2021 End: 09-25-2021 take 1 spray(s) nasal route twice daily Ipratropium [place] Discontinued 2 SPRAY INTRANASAL TWICE A DAY September 02, 2021 11:00pm September 25, 2021 11:45am administer into each nostril Start: 09-03-2021 End: 09-25-2021 take 1 spray(s) nasal route twice daily Ipratropium [place] Discontinued 2 SPRAY INTRANASAL TWICE A DAY [...] Discon tinued 75 mg PO DAILY 90 2 November 06, 2018 9:19am March 16, 2019 [...] 1:00am Multivitamin With Iron 1 EACH tablet (5 sources) Start: 03-31-2013 take 1 tablet by [...] 24hr Discontinued 10 mg PO DAILY 90 3 October 15, 2023 10:31am March 24, 2024 5:08pm Start: 07-15-2017 End: 11-06-2018 take 1 tablet by mouth once daily Oxybutynin Chloride (Ditropan Xl) 5 mg tablet extended release 24hr Discontinued 10 mg PO daily September 02, 2018 10:39am November 06, 2018 8:52am Completed/Discontinued Medications Medication Drug Class(es) Dates Sig [...] times daily as needed for pain OXYCODONE-ACETAMINOPHEN [id number] Brennen Hopper MD Start: 04-05-2016 End: 04-05-2016 [...] 2016 5:08pm alcaftadine 2.5 mg/ml ophthalmic solution (12 sources) Start: 09-18-2021 End: 12-05-2021 take 0.25 [...] mg / clavulanate 125 mg oral tablet (20 sources) Penicillin-class Antibacterial Start: 05-02-2023 End: 05-12-2023 [...] Blood-Glucose Meter (Contour Next Ez Meter) kit (5 sources) Start: 07-26-2024 End: 10-27-2024 Blood-Glucose Meter (Contour Next Ez Meter) kit Discontinued 0 .Route 1 3 July 26, 2024 12:00am October 27, 2024 9:38am As directed cefadroxil 500 mg oral capsule (14 sources) Cephalosporin Antibacterial Start: 12-19-2016 End: 07-15-2017 [...] 2018 6:01pm ciprofloxacin 500 mg oral tablet (14 sources) Quinolone Antimicrobial Start: 05-07-2019 End: 05-24-2019 take 1 tablet by mouth twice daily Ciprofloxacin Hcl 500 mg tablet Discontinued 500 mg PO TWICE A DAY 10 0 May 07, 2019 1:00am May 24, 2019 9:22am daily defense (14 sources) Start: 11-06-2018 End: 01-05-2021 take 1 [...] 2020 11:02am diazePAM 2 mg oral tablet (14 sources) Benzodiazepine Start: 03-31-2013 End: 10-01-2018 take 1 tablet by mouth three times daily as needed for anxiety Diazepam 2 MG tablet Discontinued 2 mg PO 3 TIMES DAILY NEEDED as needed for Anxiety March 31, 2013 1:00am October 01, 2018 6:03pm Fluad Quad [id number](65yr up)(PF) 60 mcg (15 mcg x 4)/0.5mL [...] propionate 0.05 mg/actuat metered dose nasal spray (14 sources) Corticosteroid Start: 03-31-2013 End: 07-15-2017 Fluticasone Propionate 1 SPRAY spray,suspension Discontinued 50 ug NASAL DAILY NEEDED as needed for Allergies March 31, 2013 1:00am July 15, 2017 9:15am gabapentin 100 mg oral capsule (4 sources) Anti-epileptic Agent Start: 05-22-2016 End: 06-26-2016 take 1 tablet by mouth three times daily NEURONTIN 100 MG CAPS One tablet by mouth three times daily GABAPENTIN [id number] Brennen Hopper MD Start: 04-24-2016 End: 06-26-2016 take 1 tablet by mouth twice daily NEURONTIN 100 MG CAPS One tablet by mouth twice daily GABAPENTIN [id number] Ameena Francis Pereira LPN Gauze Bandage (9 sources) Start: [...] Gauze Bandage (Rolled Gauze) 1 EACH Bandage (14 sources) Start: 04-05-2016 End: 04-05-2016 Gauze Bandage [...] and S61.401A. Gauze Bandage 1 EACH Bandage (5 sources) Start: 04-05-2016 End: 04-05-2016 Gauze Bandage [...] TABS One tablet by mouth daily HYDROCHLOROTHIAZIDE [id number] Archana Barraza imiquimod 50 mg/ml topical cream (1 source) Start: 01-06-2017 ALDARA 5 % CRE A apply daily at night 5 days per week for 6 weeks IMIQUIMOD [id number] Brennen Hopper MD Ipratropium [place] 21 mcg (0.03 %) spray,non-aerosol (5 sources) Start: 09-03-2021 End: 09-25-2021 Ipratropium [place] 21 mcg (0.03 %) spray,non-aerosol Discontinued 2 NMA INTRANASAL TWICE A DAY as needed for allergy symptoms/ Sinus symptoms 30 September 03, 2021 12:00am September 25, 2021 12:45pm administer into each nostril lactobacillus acidophilus [id number] unt / pectin 100 mg oral tablet (20 sources) Start: 12-19-2016 End: 07-15-2017 take 1 tablet by mouth twice daily Acidophilus-Pectin, [place] 1 EACH tablet Discontinued 1 NMA PO TWICE A DAY 10 0 December 19, 2016 12:00am July 15, 2017 9:15am Start: 12-19-2016 End: 07-15-2017 Acidophilus-Pectin, [place] D iscontinued 1 EACH PO TWICE A DAY December 18, 2016 11:00pm July 15, 2017 8:15am Start: 04-05-2016 End: 04-05-2016 take 1 tablet by mouth twice daily Acidophilus-Pectin, [place] 1 EACH tablet Discontinued 1 NMA PO TWICE A DAY 30 2 April 05, 2016 1:00am April 05, 2016 6:07pm Start: 04-05-2016 End: 04-05-2016 Acidophilus-Pectin, [place] D iscontinued 1 EACH PO TWICE A DAY April 05, 2016 12:00am April 05, 2016 5:07pm Magnesium (14 sources) Start: 02-16-2019 End: 09-09-2019 take 250 [...] 8:22am meclizine hydrochloride 25 mg chewable tablet (14 sources) Antiemetic Start: 03-31-2013 End: 10-01-2018 take 1 tablet by mouth three times daily as needed for dizziness Meclizine 25 MG tablet,chewable Discontinued 25 mg PO THREE TIMES A DAY as needed for Dizziness March 31, 2013 1:00am October 01, 2018 6:03pm nitrofurantoin, macrocrystals 25 mg / nitrofurantoin, monohydrate 75 mg oral capsule (14 sources) Nitrofuran Antibacterial Start: 03-04-2019 End: 03-11-2019 [...] 3:27pm oxyCODONE hydrochloride 5 mg oral tablet (20 sources) Opioid Agonist Start: 05-21-2023 End: 06-09-2023 [...] (DR/EC) Discontinued 40 mg PO DAILY 90 3 January 26, 2024 1:01pm February 19, 2024 9:26am Start: 04-08-2022 End: 02-10-2023 Pantoprazole 40 mg tablet,de layed release (DR/EC) Discontinued 40 mg PO DAILY 120 2 May 20, 2022 11:04am February 10, 2023 [...] release Discontinued 20 meq PO DAILY 90 2 October 06, 2020 12:00am October 12, 2020 [...] 12:17pm pravastatin sodium 40 mg oral tablet (14 sources) HMG-CoA Reductase Inhibitor Start: 03-31-2013 End: 09-02-2018 Pravastatin 40 MG tablet Discontinued 20 mg PO AT BEDTIME March 31, 2013 1:00am September 02, 2018 10:40am Start: 03-31-2013 End: 09-02-2018 take 20 mg by mouth at bedtime Pravastatin Discontinue d 20 MG PO AT BEDTIME March 31, 2013 12:00am September 02, 2018 9:40am predniSONE 20 mg oral tablet (7 sources) Start: 05-14-2023 End: 05-21-2023 take 2 [...] MG TABS 3 times daily ROPINIROLE HCL [id number] Archana Barraza Semaglutide (5 sources) Start: 07-26-2024 End: 10-27-2024 Semaglutide (Ozempic) 0.25 m g or 0.5 mg (2 mg/3 mL) pen injector Discontinued 0.25 mg SC EVERY WEEK 3 July 26, 2024 12:00am October 27, 2024 9:38am for 4 weeks Silver-Hydrocolloid Dressing (Aquacel-Ag W-Hydrofiber Dress) 1 EACH Bandage (14 sources) Start: 04-05-2016 End: 04-05-2016 Silver-Hydrocolloid Dressing [...] TABS 1 tab pm SOLIFENACIN SUCCINATE TABS [id number] Archana Barraza sucralfate 1000 mg oral tablet (20 sources) Aluminum Complex Start: End: take 1 tablet by mouth at bedtime Sucralfate (Carafate) 1 gram tablet Discontinued 1 g PO before meals and at bedtime 56 14 0 October 27, 2024 12:00am November 09, 2024 12:00am November 10, 2024 12:07am Start: 06-02-2024 End: 06-09-2024 take 1 tablet [...] 21, 2022 1:00am April 22, 2022 1:04am valsartan 160 mg oral tablet (15 sources) Angiotensin 2 Receptor Medardo Start: 03-31-2013 End: 09-02-2018 take 1 tablet by mouth once daily Valsartan 160 MG tablet Discontinued 160 mg PO DAILY March 31, 2013 1:00am September 02, 2018 10:40am Vibegron (5 sources) Start: 03-24-2024 End: 07-26-2024 take 1 tablet by mouth once daily Vibegron (Gemtesa) 75 mg tablet Discontinued 75 mg PO DAILY March 24, 2024 1:00am July 26, 2024 9:05am Vonoprazan (Voquezna) 10 mg tablet (10 sources) Start: 06-11-2024 End: 07-26-2024 take 1 tablet by mouth once daily Vonoprazan (Voquezna) 10 mg tablet Discontinued 10 mg PO daily 90 2 June 11, 2024 1:02pm July 26, 2024 9:05am Start: 06-11-2024 End: 06-11-2024 take 1 tablet by mouth once daily Vonoprazan (Voquezna) 10 mg tablet Discontinued 10 mg PO daily 90 June 11, 2024 1:00am June 11, 2024 1:02pm Problems Active Problems Problem Classification Problem Date Documented Da te Episodic/Chronic Abdominal pain (16 sources) Left lower quadrant pain; Translations: [Left lower quadrant pain] Onset: 11-19-2023 Episodic Anxiety disorders (16 sources) Mixed anxiety and depressive disorder; Translations: [Other specified anxiety disorders] 02-16-2019 Chronic Cataract (14 sources) Bilateral cataracts; Translations: [Unspecified cataract] 10-25-2019 Chronic Conditions associated with dizziness or vertigo (20 sources) Vertigo; Translations: [Dizziness and giddiness] 10-01-2018 Episodic Diabetes mellitus without complication (20 sources) Hyperglycemia; Translations: [Hyperglycemia, unspecified] Onset: 5 03-22-2022 Episodic Disorders of lipid metabolism (20 sources) Hypercholesterolemia; Translations: [Pure hypercholesterolemia, unspecified] Onset: 5 10-01-2018 Chronic E Codes: Natural/environment (14 sources) Cat bite - wound; Translations: [Bitten by cat, initial encounter] 04-02-2016 Episodic Comment on above: W55.01xAcat bite inf ection dorsum right hand at MP joint index finger with surrounding cellulitis extending onto index finger and onto distal dorsal forearm Esophageal disorders (12 sources) Gastroesophageal reflux disease; Translations: [Gastro-esophageal reflux disease without esophagitis] Onset: 4 04-08-2022 Chronic Essential hypertension (20 sources) Benign essential hypertension; Translations: [Essential (primary) hypertension] Onset: 5 Chronic External Injury - Natural / Environment (2 sources) Bitten by cat, subsequent encounter; Translations: [Bitten by cat, initial encounter] Onset: 6 05-08-2016 Immunizations and screening for infectious disease (14 sources) Needs influenza immunization; Translations: [Encounter for immunization] 01-05-2021 Episodic Lymphadenitis (17 sources) Lymphadenopathy; Translations: [Generalized enlarged lymph nodes] Episodic Comment on above: left axillary 3.5 x 2.1 cm, 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 cbc ordered Non-Hodgkin`s lymphoma (7 sources) Malignant lymphoma - small lymphocytic; Translations: [...] Chronic Other bone disease and musculoskeletal deformities (5 sources) Osteopenia; Translations: [Other specified disorders of bone density and structure, unspecified site] 10-27-2024 Episodic Other bone disease and musculoskeletal deformities (1 source) Other specified disorders of bone density and structure, unspecified site; Translations: [Other specified disorders of bone density and structure, unspecified site] Onset: 5 Episodic Other connective tissue disease (20 sources) Dupuytren's contracture ; Translations: [Palmar fascial fibromatosis [Dupuytren]] Onset: 7 05-17-2016 Episodic Other connective tissue disease (10 sources) Hand pain; Translations: [Pain in right hand] 04-08-2022 Episodic Other connective tissue disease (3 sources) Palmar fascial fibromatosis [Dupuytren]; Translations: [Contracture of palmar fascia] 07-05-2022 Episodic Other connective tissue disease (8 sources) Pain in axilla; Translations: [Pain in left upper arm] 03-11-2023 Episodic Other connective tissue disease (4 sources) Pain in left upper arm; Translations: [Pain in limb] 03-11-2023 Episodic Other diseases of kidney and ureters (5 sources) Renal mass; Translations: [Other specified disorders of kidney and ureter] 12-08-2023 Chronic Other ear and sense organ disorders (14 sources) Tinnitus; Translations: [Tinnitus, unspecified ear] 10-06-2020 Episodic Other gastrointestinal disorders (9 sources) Dark stools; Translations: [Other fecal abnormalities] 02-19-2024 Episodic Other gastrointestinal disorders (5 sources) Constipation; Translations: [Constipation, unspecified] 06-11-2024 Episodic Other gastrointestinal disorders (1 source) Other fecal abnormalities; Translations: [Other fecal abnormalities] Onset: 5 Episodic Other hereditary and degenerative nervous system conditions (20 sources) Restless legs; Translations: [Restless legs syndrome] 10-01-2018 Chronic Other hereditary and degenerative nervous system conditions (7 sources) Restless legs syndrome; Translations: [Restless legs syndrome (RLS)] 07-05-2022 Chronic Other lower respiratory disease (13 sources) Dyspnea; Translations: [Shortness of breath] 09-03-2021 Episodic Other lower respiratory disease (3 sources) Shortness of breath; Translations: [Shortness of breath] Episodic Other lower respiratory disease (9 sources) Dyspnea on exertion; Translations: [Other forms of dyspnea] 10-27-2024 Episodic Other lower respiratory disease (2 sources) Other forms of dyspnea; Translations: [Other forms of dyspnea] Onset: Episodic Other nervous system disorders (14 sources) H/O: hearing problem; Translations: [Personal history [...] Episodic Other nutritional; endocrine; and metabolic disorders (5 sources) Body mass index 30+ - obesity; Translations: [Obesity, unspecified] 08-13-2023 Chronic Other screening for suspected conditions (not mental disorders or infectious disease) (17 sources) Patient encounter status; Translations: [Encounter for screening for malignant neoplasm of colon] 06-21-2022 Episodic Other skin disorders (20 sources) Actinic keratosis; Translations: [Disorder of skin] Onset: 7 01-06-2017 Episodic Comment on above: actinic keratosis wi th moderate atypia left nasal tip ACTINIC KERATOSIS, H YPERTROPHIC TYPE, WITH MODERATE ATYPIA LEFT NASAL TIP Other upper respiratory infections (20 sources) Chronic sinusitis; Translations: [Chronic sinusitis, unspecified] Chronic Other upper respiratory infections (9 sources) Acute sinusitis; Translations: [Acute sinusitis, unspecified] 05-02-2023 Episodic Residual codes; unclassified (18 sources) Obstructive sleep apnea syndrome; Translations: [Obstructive sleep apnea (adult) (pediatric)] 12-11-2018 Chronic Residual codes; unclassified (13 sources) Bilateral lower limb edema; Translations: [Localized edema] 09-03-2021 Episodic Residual codes; unclassified (3 sources) Localized edema; Translations: [Edema] Episodic Residual codes; unclassified (10 sources) Past history of procedure; Translations: [Other specified postprocedural states] 12-05-2021 Episodic Skin and subcutaneous tissue infections (15 sources) Cellulitis of hand; Translations: [Cellulitis of right upper limb] Onset: 6 04-22-2016 Episodic Comment on above: L03.113cat bite infe ction dorsum right hand at MP joint index finger with surrounding cellulitis extending onto index finger and onto distal dorsal forearm Spondylosis; intervertebral disc disorders; other back problems (14 sources) Back problem; Translations: [Dorsopathy, unspecified] 10-25-2019 Episodic Unclassified (1 source) Aftercare ; Translations: [Encounter for other specified surgical aftercare] Onset: 6 04-22-2016 Past or Other Problems Problem Classification Problem Date Documented Da te Episodic/Chronic Gastrointestinal hemorrhage (15 sources) Gastrointestinal hemorrhage; Translations: [Gastrointestinal hemorrhage, unspecified] Onset: 4 02-23-2024 Episodic Neoplasms of unspecified nature or uncertain behavior (5 sources) Neoplasm of soft tissue; 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] Onset: 7 02-10-2017 Episodic Other disorders of stomach and duodenum (1 source) Functional dyspepsia; Translations: [Functional dyspepsia] Onset: 5 Episodic Unclassified (10 sources) cancer removed 11-07-2021 Comment on above: left ear and nose 20 15 Results Test Name Value Interpretation Reference Range Facility MR/PATTulio 12-16-2024 MR/PAT.WIL [facility] Medical Records Department [address] [place] [address] PAT - Anesthesia 12/16/24 1638 MR#: [id number] Acct: [id number] Name: GEORGIA RO Rep #: [id number] : 1945 79 From: Bruno Myrick MD PCP: Dr. 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 When Was Last Pacemaker Check QUESTION #4 FULL TEXT: You/Your Family Experience fever (hyperthermia) with Anesthesia Last Oral Intake Last Oral intake: Last Oral Intake NPO since Meds taken in AM with sips of water? 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 - director employee communications: PONV - director employee communications Female Yes 12/16/24 09:08 HX of Motion Sickness No 12/16/24 09:08 HX of N/V After Surgery Yes 12/16/24 09:08 Non-Smoker Yes 12/16/24 09:08 Duration of Surgery greater No 12/16/24 09:08 than 60 minutes Number of Risk Factors 3 12/16/24 09:08 PONV Score Moderate Risk 12/16/24 09:08 Height Weight Height Weight: Anesthesia: Height Weight Height 5 ft 6 in 10/27/24 09:41 Respiratory Assessment Respiratory Assessment - director employee communications: Respiratory Tract Infection Hx - director employee communications Hx Respiratory Tract Infection No 12/16/24 09:08 STOP Sleep Apnea STOP Sleep Apnea - director employee communications: STOP Sleep Apnea - director employee communications Hx Hypertension Yes: on meds 12/16/24 09:08 Hx Sleep Apnea No 12/16/24 09:08 CPAP No 03/29/24 09:03 BIPAP No 03/24/24 16:09 Do you snore loudly (louder No 12/16/24 09:08 than talking or can be heard Do you often feel tired/ No 12/16/24 09:08 fatigued/ sleepy during daytime? Has anyone observed you stop No 12/16/24 09:08 breathing during sleep? STOP Results Negative 12/16/24 09:08 QUESTION #5 FULL TEXT : Do you snore loudly (louder than talking or can be heard through closed doors)? 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 Specify any problems Hx of Preganancy in last 3 No 12/16/24 09:08 Months Nurse Filling Out Transfusion JZOLLINGE 12/16/24 09:08 Questions: Date: 12/16/24 12/16/24 09:08 Time: 09:10 12/16/24 09:08 Patient unable to answer at this time (ie. confused, unrespo /Reproduction History /Reproductive History - director employee communications: /Reproductive Hx- director employee communications Hx Now No 12/16/24 09:08 Gestational Age (in weeks): EDC: Hx Hx Para Hx Section SAB No 12/16/24 09:08 [facility] Medical History (Updated 12/16/24 @ 09:08 by Etta Ceja) Bladder disease Difficulty swallowing History of hiatal hernia Gastric reflux History of stress test Dyspnea on exertion Osteopenia PONV (postoperative nausea [...] Open cat bite of hand Cat bite (more content not included)... Normal [facility] Cardiovascular stress test r eportOrdered By: Arnoldo Phelps on 11-23-2024 Study report [facility] [address] [place] [address] MR#: [id number] Acct: [id number] Name: GEORGIA RO Rep #: [id number] : 1945 79 From: Arnoldo Phelps MD Primary Care: Dr. Eboni Katz MD atus: REG CLI Referring Dr: Eboni Katz MD Sex: F C Stress Test Report Pharmacologic myocardial perfusion stress test. 79-year-old lady with a history of dyspnea on exertion Resting EKG demonstrates sinus rhythm with a rate of 68 bpm. Resting blood pressure is 134/62 mmHg. 0.4 mg of regadenoson was infused per usual protocol followed by rapid intravenous saline flush injection. Continuous EKG monitoringwas performed. The maximum heart rate was 94 bpm which was 66% of max impacted heart rate the maximum workload was 1 metabolic equivalent. At rest there were no ST or T wave changes noted to suggest ischemia and at peak infusion nonspecific ST changes were noted which did not meet the criteria for ischemia. No clinical angina is noted. The final blood pressure was 116/60 mmHg. Myocardial perfusion protocol. 13.5 mCi of technetium 99m sestamibi was injected at rest. 0.4 mg of regadenoson was infused per usual protocol. At peak infusion 42 point mCi of technetium 99m sestamibi was injected stress images were obtained stress and rest images were reconstructed and compared in the short axis vertical long and horizontal long axis. Gated images were also obtained. Perfusion SPECT analysis: Review of the stress images demonstrate normal uptake of tracer noted in all areas of the myocardium. The resting images similar demonstrated normal uptake of tracer noted in all areas of the myocardium. No areas of reversibility are noted to suggest ischemia and no previous infarct is noted. Gated SPECT analysis: The gated ejection fraction is 78%. Conclusion: Normal pharmacologic myocardial perfusion stress test. Preserved ejection fraction. 11/23/24 1726 Date _ Arnoldo Phelps MD CC: Dr. Eboni Katz MD ~ Date Dictated: 11/23/241724 Date Transcribed: 11/23/241724 Healthcare Analyst: CO Signed [facility] Work Phone: Stress Reporton 11-23-2024 Stress Report [facility] [address] [place] [address] MR#: [id number] Acct: [id number] Name: GEORGIA RO Rep #: [id number] : 1945 79 From: Arnoldo Phelps MD Primary Care: Dr. Eboni Katz MD Status: REG CLI Referring Dr: Eboni Katz MD Sex: F C Stress Test Report Pharmacologic myocardial perfusion stress test. 79-year-old lady with a history of dyspnea on exertion Resting EKG demonstrates sinus rhythm with a rate of 68 bpm. Resting blood pressure is 134/62 mmHg. 0.4 mg of regadenoson was infused per usual protocol followed by rapid intravenous saline flush injection. Continuous EKG monitoring was performed. The maximum heart rate was 94 bpm which was 66% of max impacted heart rate the maximum workload was 1 metabolic equivalent. At rest there were no ST or T wave changes noted to suggest ischemia and at peak infusion nonspecific ST changes were noted which did not meet the criteria for ischemia. No clinical angina is noted. The final blood pressure was 116/60 mmHg. Myocardial perfusion protocol. 13.5 mCi of technetium 99m sestamibi was injected at rest. 0.4 mg of regadenoson was infused per usual protocol. At peak infusion 42 point mCi of technetium 99m sestamibi was injected stress images were obtained stress and rest images were reconstructed and compared in the short axis vertical long and horizontal long axis. Gated images were also obtained. Perfusion SPECT analysis: Review of the stress images demonstrate normal uptake of tracer noted in all areas of the myocardium. The resting images similar demonstrated normal uptake of tracer noted in all areas of the myocardium. No areas of reversibility are noted to suggest ischemia and no previous infarct is noted. Gated SPECT analysis: The gated ejection fraction is 78%. Conclusion: Normal pharmacologic myocardial perfusion stress test. Preserved ejection fraction. 11/23/241725 Date Arnoldo Phelps MD CC: Dr. Eboni Katz MD Date Dictated: 11/23/241724 Date Transcribed: 11/23/241724 Healthcare Analyst: CO Signed [facility] L3410.9992on 11-06-2024 [facility] Misc. [facility] Comment on above: Order Comment: [id number] 4STOOL CULTURE Result Comment: TEST RESULTS LIMITS Stool Culture Salmonella/Shigella Screen Final report Result 1 No Salmonella or Shigella recovered. Campylobacter Culture Final report Result 1 No Campylobacter species isolated. E coli Shiga Toxin EIA Negative TESTING PERFORMED AT [facility]. ORIGINAL REPORT ON FILE IN LAB CONTAINS ADDITIONAL TEST SITE INFORMATION. Performed By: #### L 100.0100, L500.4050, L101.9900, L501.6710 #### [facility] [address] [place], [address] M7400.3302on 11-06-2024 M7400.3302 ___ TESTING PERFORMED AT [facility]. ORIGINAL REPORT ON FILE IN LAB CONTAINS ADDITIONAL TEST SITE INFORMATION. Giardia Lamblia EIA NEGATIVE Normal [facility] Comment on above: Performed By: #### L 100.0100, L500.4050, L101.9900, L501.6710 #### [facility] [address] [place], [place], [address] Ova and Parasites 8623on OP OVA AND PARASITES EX AM, ROUTINE These results were obtained using wet preparation(s) and trichrome stained smear. This test does not include testing for Crytosporidium parvum, Cyclospora, or Microsporidia. One negative specimen does not rule out the possibility of a parasitic infection. TESTING PERFORMED AT [facility]. ORIGINAL REPORT ON FILE IN LAB CONTAINS ADDITIONAL TEST SITE INFORMATION. Ova/Parasite Exam NO OVA, CYSTS, OR PARASITES FOUND. Normal [facility] Comment on above: Performed By: #### L 100.0100, L500.4050, L101.9900, L501.6710 #### [facility] [address] [place], [place], [address] Calprotectin, Stoolon [address] 470 ug/g Abnormal 0-120 [facility] Comment on above: Result Comment: Conc entration Interpretation Follow-Up < 5 - 50 ug/g Normal None >50 -120 ug/g Borderline Re-evaluate in 4-6 weeks >120 ug/g Abnormal Repeat as clinically indicated Performed at: [address] [id number] Donation Specialist: Hattie Hill MD, Phone: [phone] Performed By: #### L 100.0100, L500.4050, L101.9900, L501.6710 #### [facility] [address] [place], [address] L7000.0750on 11-02-2024 P ELASTASE,FECA 745 Normal >200 [facility] Comment on above: Result Comment: Resu lt Units: ug Elast./g Severe Pancreatic Insufficiency: <100 Moderate Pancreatic Insufficiency: 100 - 200 Normal: >200 Performed at: [facility] [address] [id number] Donation Specialist: Hattie Hill MD, Phone: [phone] Performed By: #### L 100.0100, L500.4050, L101.9900, L501.6710 #### [facility] [address] [place], [address] CBC W/Diff, Automatedon 10-19 Absolute Neut Normal 2.0-7.7 [facility] Comment on above: Result Comment: NO B LOOD WAS OBTAINED Performed By: #### M 7400.3302, M100.7900, L100.0100, L3410.9992, M100.6796, M600.5000, L7000.0750, L7000.0700 #### [facility] [address] [place], [address] HCT Normal 37-47 [facility] Comment on above: Result Comment: NO B LOOD WAS OBTAINED Performed By: #### M 7400.3302, M100.7900, L100.0100, L3410.9992, M100.6796, M600.5000, L7000.0750, L7000.0700 #### [facility] [address] [place], [address] HGB Normal 12.0-15.0 [facility] Comment on above: Result Comment: NO B LOOD WAS OBTAINED Performed By: #### M 7400.3302, M100.7900, L100.0100, L3410.9992, M100.6796, M600.5000, L7000.0750, L7000.0700 #### [facility] [address] [place], [place], [address] (271) MCH Normal 27.0-32.0 [facility] Comment on above: Result Comment: NO B LOOD WAS OBTAINED Performed By: #### M 7400.3302, M100.7900, L100.0100, L3410.9992, M100.6796, M600.5000, L7000.0750, L7000.0700 #### [facility] [address] [place], [place], [address] [facility] Comment on above: Result Comment: NO B LOOD WAS OBTAINED Performed By: #### M 7400.3302, M100.7900, L100.0100, L3410.9992, M100.6796, M600.5000, L7000.0750, L7000.0700 #### [facility] [address] [place], [place], [address] MCV Normal 81-99 [facility] Comment on above: Result Comment: NO B LOOD WAS OBTAINED Performed By: #### M 7400.3302, M100.7900, L100.0100, L3410.9992, M100.6796, M600.5000, L7000.0750, L7000.0700 #### [facility] [address] [place], [address] NEUT% Normal 47-70 [facility] Comment on above: Result Comment: NO B LOOD WAS OBTAINED Performed By: #### M 7400.3302, M100.7900, L100.0100, L3410.9992, M100.6796, M600.5000, L7000.0750, L7000.0700 #### [facility] [address] [place], [address] PLT Normal 150-450 [facility] Comment on above: Result Comment: NO B LOOD WAS OBTAINED Performed By: #### M 7400.3302, M100.7900, L100.0100, L3410.9992, M100.6796, M600.5000, L7000.0750, L7000.0700 #### [facility] [address] [place], [address] RBC Normal 4.2-5.4 [facility] Comment on above: Result Comment: NO B LOOD WAS OBTAINED Performed By: #### M 7400.3302, M100.7900, L100.0100, L3410.9992, M100.6796, M600.5000, L7000.0750, L7000.0700 #### [facility] [address] [place], [address] RDW CV Normal 11.6-14.6 [facility] Comment on above: Result Comment: NO B LOOD WAS OBTAINED Performed By: #### M 7400.3302, M100.7900, L100.0100, L3410.9992, M100.6796, M600.5000, L7000.0750, L7000.0700 #### [facility] [address] [place], [address] RDW SD Normal 35.1-43.9 [facility] Comment on above: Result Comment: NO B LOOD WAS OBTAINED Performed By: #### M 7400.3302, M100.7900, L100.0100, L3410.9992, M100.6796, M600.5000, L7000.0750, L7000.0700 #### [facility] [address] [place], [address] WBC Normal 4.4-11.0 [facility] Comment on above: Result Comment: NO B LOOD WAS OBTAINED Performed By: #### M 7400.3302, M100.7900, L100.0100, L3410.9992, M100.6796, M600.5000, L7000.0750, L7000.0700 #### [facility] [address] [place], [address] CDIFF (PCR)on 11-01-2024 CDIFF Pending 027 027 NAP1-B1 Presumptive Negative *for epidemiolologic???use C. Diff PCR Negative- No toxigenic C. Diff Detected Normal [facility] Comment on above: Performed By: #### L 100.0100, L500.4050, L101.9900, L501.6710 #### [facility] [address] [facility] [place], [place], [id number] Calprotectin stoolOrdered By : Ruby Parekh on 11-01-2024 Calprotectin stool 470 ug/g High 0-120 [facility] Comment on above: Concentration Interp retation Follow-Up< 5 - 50 ug/g Normal None>50 -120 ug/g Borderline Re-evaluate in 4-6 weeks >120 ug/g Abnormal Repeat as clinically indicatedPerformed at: [facility] [address] [id number] Director: Hattie Hill MD, Phone: [phone] Clostridium difficile detect ion by polymerase chain reactionOrdered By: Ruby Parekh on 11-01-2024 C. difficile DNA ELIZABETH+probe Ql (Unsp spec) [facility] Stool Occult Blood iFOBon STOB Positive Normal [facility] Comment on above: Performed By: #### M 7400.3302, M100.7900, L100.0100, L3410.9992, M100.6796, M600.5000, L7000.0750, L7000.0700 #### [facility] [address] [place], [address] Stool gastrointestinal hemog lobin detection by immunologic methodOrdered By: Ruby Parekh on 11-01-2024 Lower GI hemoglobin IA Ql (Stl) Positive Abnormal [facility] Stool pancreatic elastase me asurement (mass/mass)Ordered By: Ruby Parekh on 11-01-2024 Elastase.pancreatic (Stl) [Mass/Mass] 745 >200 [facility] Comment on above: Result Units: ug Miranda st./g Severe Pancreatic Insufficiency: <100 Moderate Pancreatic Insufficiency: 100 - 200 Normal: >200Performed at: - [facility] [id number] Director: Hattie Hill MD, Phone: [phone] Gastroenterology Visit Repor ton 10-28-2024 Gastroenterology Visit Report [facility] [address] [place] [address] OFFICE VISIT Date of Service: 10/28/24 MR#: [id number] Acct: [id number] Name: GEORGIA RO Rep #: [id number] : 1945 Provider: BHANU Muñoz Age/Sex: 79/F Location: [facility] [place] Status: Signed Intake Vital Signs 10/27/24 [...] every other day. Continue pantoprazole and carafate. [facility] Medical History (Updated 10/27/24 @ 12:22 by [...] the first portion of the duodenum. Biopsied. *2..25 office contacted due to black stools and [...] being par (more content not included)... Normal [facility] Absolute lymphocyte countOrd ered By: Eboni Katz on 10-27-2024 Lymphocytes Auto (Unsp spec) [#/Vol] 2.39 10*3/uL 0.83-4.51 [facility] Absolute neutrophil countOrd ered By: Eboni Katz on 10-27-2024 Neutrophils (Bld) [#/Vol] 3.9 10*3/uL 2.0-7.7 [facility] Anion gap in Serum or Plasma Ordered By: Eboni Katz on 10-27-2024 Anion gap [Moles/Vol] 13 mmol/L 5-15 [facility] Automated lymphocyte count a s percentage of total leukocytesOrdered By: Eboni Katz on 10-27-2024 Lymphocytes/100 WBC Auto (Unsp spec) 33.1 % 19-41 [facility] BUN/creatinine ratioOrdered By: Eboni Katz on 10-27-2024 Urea nitrogen/Creatinine [Mass ratio] 17.3 mg/mg 10-20 [facility] Basophil percentageOrdered B y: Eboni Katz on 10-27-2024 Basophils/100 WBC (Bld) 0.8 % 0-1 [facility] Bilirubin, totalOrdered By: Eboni Allensarai on 10-27-2024 Bilirubin [Mass/Vol] 0.65 mg/dL 0.00-1.30 [facility] CBC W/Diff, Automatedon Absolute Lymph 2.39 X10 3/uL Normal 0.83-4.51 [facility] Comment on above: Performed By: #### M 100.7900, L7000.0700, L100.0100, M100.0605 #### [facility] [address] [place], [address] Absolute Neut 3.9 X10 3/uL Normal 2.0-7.7 [facility] Comment on above: Performed By: #### M 100.7900, L7000.0700, L100.0100, M100.0605 #### [facility] [address] [place], [address] Basophils/100 WBC (Bld) 0.8 % Normal 0-1 [facility] Comment on above: Performed By: #### M 100.7900, L7000.0700, L100.0100, M100.0605 #### [facility] [address] [place], [address] Eosinophils/100 WBC (Bld) 1.9 % Normal 0-5 [facility] Comment on above: Performed By: #### M 100.7900, L7000.0700, L100.0100, M100.0605 #### [facility] [address] [place], [address] Erythrocyte distribution width (RBC) [Ratio] 13.6 % Normal 11.6-14.6 [facility] Comment on above: Performed By: #### M 100.7900, L7000.0700, L100.0100, M100.0605 #### [facility] [address] [place], [address] Hematocrit (Bld) [Volume fraction] 41.9 % Normal 37-47 [facility] Comment on above: Performed By: #### M 100.7900, L7000.0700, L100.0100, M100.0605 #### [facility] [address] [place], [address] Hemoglobin (Bld) [Mass/Vol] 13.7 g/dL Normal 12.0-15.0 [facility] Comment on above: Performed By: #### M 100.7900, L7000.0700, L100.0100, M100.0605 #### [facility] [address] [place], [address] IG% 0.300 Normal 0.0-0.9 [facility] Comment on above: Result Comment: IG% - Immature Granulocytes (promyelocytes, myelocytes and metamyelocytes) > 1% indicates that a LEFT SHIFT is Present. Performed By: #### M 100.7900, L7000.0700, L100.0100, M100.0605 #### [facility] [address] [place], [address] Lymphocytes/100 WBC (Bld) 33.1 % Normal 19-41 [facility] Comment on above: Performed By: #### M 100.7900, L7000.0700, L100.0100, M100.0605 #### [facility] [address] [place], [address] MCH (RBC) [Entitic mass] 29.7 pg Normal 27.0-32.0 [facility] Comment on above: Performed By: #### M 100.7900, L7000.0700, L100.0100, M100.0605 #### [facility] [address] [place], [address] MCHC (RBC) [Mass/Vol] 32.7 g/dL Normal 32-36 [facility] Comment on above: Performed By: #### M 100.7900, L7000.0700, L100.0100, M100.0605 #### [facility] [address] [place], [address] MCV (RBC) [Entitic vol] 90.9 fL Normal 81-99 [facility] Comment on above: Performed By: #### M 100.7900, L7000.0700, L100.0100, M100.0605 #### [facility] [address] [place], [address] Monocytes/100 WBC (Bld) 10.0 % Normal 0-10 [facility] Comment on above: Performed By: #### M 100.7900, L7000.0700, L100.0100, M100.0605 #### [facility] [address] [place], [address] Neutrophils/100 WBC (Bld) 53.9 % Normal 47-70 [facility] Comment on above: Performed By: #### M 100.7900, L7000.0700, L100.0100, M100.0605 #### [facility] [address] [place], [address] Nucleated RBC (Bld) [#/Vol] 0 10*3/uL Normal 0-5 [facility] Comment on above: Performed By: #### M 100.7900, L7000.0700, L100.0100, M100.0605 #### [facility] [address] [place], [address] Platelet mean volume (Bld) [Entitic vol] 11.2 fL Normal 6.2-12.0 [facility] Comment on above: Performed By: #### M 100.7900, L7000.0700, L100.0100, M100.0605 #### [facility] [address] [place], [address] Platelets (Bld) [#/Vol] 233 10*3/uL Normal 150-450 [facility] Comment on above: Performed By: #### M 100.7900, L7000.0700, L100.0100, M100.0605 #### [facility] [address] [place], [address] RBC (Bld) [#/Vol] 4.61 10*6/uL Normal 4.2-5.4 [facility] Comment on above: Performed By: #### M 100.7900, L7000.0700, L100.0100, M100.0605 #### [facility] [address] [place], [address] RDW SD 45.1 fl High 35.1-43.9 [facility] Comment on above: Performed By: #### M 100.7900, L7000.0700, L100.0100, M100.0605 #### [facility] [address] [place], [address] WBC (Bld) [#/Vol] 7.2 10*3/uL Normal 4.4-11.0 [facility] Comment on above: Performed By: #### M 100.7900, L7000.0700, L100.0100, M100.0605 #### [facility] [address] [place], [address] Carbon dioxide, total [Moles /volume] in Central venous bloodOrdered By: Eboni Katz on 10-27-2024 CO2 [Moles/Vol] 25.6 mmol/L 21.0-32.0 [facility] Chloride assayOrdered By: Phillip Katz on 10-27-2024 Chloride [Moles/Vol] 101 mmol/L 98-108 [facility] Comprehensive Metabolic Prof ilon 10-27-2024 Albumin [Mass/Vol] 4.3 g/dL Normal 3.4-4.8 [facility] Comment on above: Performed By: #### M 100.7900, L7000.0700, L100.0100, M100.0605 #### [facility] [address] [place], [address] Albumin/Globulin [Mass ratio] 1.5 {ratio} Normal 0.9-2.4 [facility] Comment on above: Performed By: #### M 100.7900, L7000.0700, L100.0100, M100.0605 #### [facility] [address] [place], [address] ALK PHOS 88 U/L Normal 35-104 [facility] Comment on above: Performed By: #### M 100.7900, L7000.0700, L100.0100, M100.0605 #### [facility] [address] [place], [address] ALT [Catalytic activity/Vol] 19 U/L Normal <=34 [facility] Comment on above: Performed By: #### M 100.7900, L7000.0700, L100.0100, M100.0605 #### [facility] [address] [place], [address] AST [Catalytic activity/Vol] 25 U/L Normal <=31 [facility] Comment on above: Performed By: #### M 100.7900, L7000.0700, L100.0100, M100.0605 #### [facility] [address] [place], [address] Bilirubin [Mass/Vol] 0.65 mg/dL Normal 0.00-1.30 [facility] Comment on above: Performed By: #### M 100.7900, L7000.0700, L100.0100, M100.0605 #### [facility] [address] [place], [address] BUN/CRE 17.3 RATIO Normal 10-20 [facility] Comment on above: Performed By: #### M 100.7900, L7000.0700, L100.0100, M100.0605 #### [facility] [address] [place], [address] Calcium [Mass/Vol] 10.1 mg/dL Normal 7.6-11.0 [facility] Comment on above: Performed By: #### M 100.7900, L7000.0700, L100.0100, M100.0605 #### [facility] [address] [place], [address] Chloride [Moles/Vol] 101 mmol/L Normal 98-108 [facility] Comment on above: Performed By: #### M 100.7900, L7000.0700, L100.0100, M100.0605 #### [facility] [address] [place], [address] CO2 [Moles/Vol] 25.6 mmol/L Normal 21.0-32.0 [facility] Comment on above: Performed By: #### M 100.7900, L7000.0700, L100.0100, M100.0605 #### [facility] [address] [place], [address] Creatinine [Mass/Vol] 1.13 mg/dL Normal 0.70-1.20 [facility] Comment on above: Performed By: #### M 100.7900, L7000.0700, L100.0100, M100.0605 #### [facility] [address] [place], [address] GAP 13 Normal 5-15 [facility] Comment on above: Performed By: #### M 100.7900, L7000.0700, L100.0100, M100.0605 #### [facility] [address] [place], [address] GFR/1.73 sq M.predicted among non-blacks MDRD (S/P/Bld) [Vol rate/Area] 50 mL/min/{1.73_m2} Low >60 [facility] Comment on above: Result Comment: mL/m in/1.73m2 CKD-EPI Creatinine Equation (2020) Performed By: #### M 100.7900, L7000.0700, L100.0100, M100.0605 #### [facility] [address] [place], [address] Globulin (S) [Mass/Vol] 2.9 g/dL Normal 2.2-4.2 [facility] Comment on above: Performed By: #### M 100.7900, L7000.0700, L100.0100, M100.0605 #### [facility] [address] [place], [address] Glucose [Mass/Vol] 103 mg/dL High 70-99 [facility] Comment on above: Performed By: #### M 100.7900, L7000.0700, L100.0100, M100.0605 #### [facility] [address] [place], [address] Potassium [Moles/Vol] 4.8 mmol/L Normal 3.3-5.1 [facility] Comment on above: Performed By: #### M 100.7900, L7000.0700, L100.0100, M100.0605 #### [facility] [address] [place], [address] Sodium [Moles/Vol] 140 mmol/L Normal 133-145 [facility] Comment on above: Performed By: #### M 100.7900, L7000.0700, L100.0100, M100.0605 #### [facility] [address] [place], [address] T PROT 7.2 g/dL Normal 5.9-8.4 [facility] Comment on above: Performed By: #### M 100.7900, L7000.0700, L100.0100, M100.0605 #### [facility] [address], [address] Urea nitrogen [Mass/Vol] 20 mg/dL High 4-19 [facility] Comment on above: Performed By: #### M 100.7900, L7000.0700, L100.0100, M100.0605 #### [facility] [address] [place], [address] Eosinophil percentageOrdered By: Eboni Katz on 10-27-2024 Eosinophils/100 WBC (Bld) 1.9 % 0-5 [facility] Erythrocyte distribution wid th ratioOrdered By: Eboni Katz on 10-27-2024 Erythrocyte distribution width (RBC) [Ratio] 13.6 % 11.6-14.6 [facility] Erythrocyte distribution wid th standard deviationOrdered By: Eboni Katz on 10-27-2024 Erythrocyte distribution width (RBC) [Ratio] 45.1 fl High 35.1-43.9 [facility] Glomerular filtration rate ( GFR) estimation/1.73 sq m using serum, plasma, or whole bOrdered By: Eboni Katz on 10-27-2024 GFR/1.73 sq M.predicted among non-blacks MDRD (S/P/Bld) [Vol rate/Area] 50 mL/min/{1.73_m2} Low >60 [facility] Comment on above: mL/min/1.73m2 CKD-EP I Creatinine Equation (2020) Hematocrit Auto (Bld) [Volum e fraction]Ordered By: Eboni Katz on 10-27-2024 Hematocrit (Bld) [Volume fraction] 41.9 % 37-47 [facility] Hemoglobin measurementOrdere d By: Eboni Katz on 10-27-2024 Hemoglobin (Bld) [Mass/Vol] 13.7 g/dL 12.0-15.0 [facility] Immature granulocytes/100 WB C Auto (Bld)Ordered By: Eboni Katz on 10-27-2024 Immature granulocytes/100 WBC (Bld) 0.300 % 0.0-0.9 [facility] Comment on above: IG% - Immature Granu locytes (promyelocytes, myelocytes and metamyelocytes) > 1% indicates that a LEFT SHIFT is Present. Internal Medicine Office Vis iton 10-27-2024 Internal Medicine Office Visit [facility] [address] [place] [address] OFFICE VISIT Date of Service: 10/27/24 MR#: [id number] Acct: [id number] Name: GEORGIA RO Rep #: [id number] : 1945 Provider: Dr. 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 Pt denies chest pain just sob. [facility] Medical History (Updated 10/27/24 @ 12:22 by [...] alcohol intake: (more content not included)... Normal [facility] - Chemistry and C hemistry - challengeOrdered By: Eboni Katz on 10-27-2024 AST [Catalytic activity/Vol] 25 U/L <32 [facility] - Hematology and Cell countsOrdered By: Eboni Katz on 10-27-2024 HbA1c (Bld) [Mass fraction] 6.0 % 4.2-6.3 [facility] MCV (mean corpuscular volume ) determinationOrdered By: Eboni Katz on 10-27-2024 MCV (RBC) [Entitic vol] 90.9 fL 81-99 [facility] Mean corpuscular hemoglobin (MCH) determinationOrdered By: Eboni Katz on 10-27-2024 MCH (RBC) [Entitic mass] 29.7 pg 27.0-32.0 [facility] Mean corpuscular hemoglobin concentration (MCHC) determinationOrdered By: Eboni Katz on 10-27-2024 MCHC (RBC) [Mass/Vol] 32.7 g/dL 32-36 [facility] Mean platelet volume determi nationOrdered By: Eboni Katz on 10-27-2024 Platelet mean volume (Bld) [Entitic vol] 11.2 fL 6.2-12.0 [facility] Monocyte percentageOrdered B y: Eboni Katz on 10-27-2024 Monocytes/100 WBC (Bld) 10.0 % 0-10 [facility] Neutrophil percentageOrdered By: Eboni Katz on 10-27-2024 Neutrophils/100 WBC (Bld) 53.9 % 47-70 [facility] Nucleated red blood cell per centageOrdered By: Eboni Katz on 10-27-2024 Nucleated RBC/100 WBC (Bld) [Ratio] 0 % 0-5 [facility] Platelet countOrdered By: Phillip Katz on 10-27-2024 Platelets (Bld) [#/Vol] 233 10*3/uL 150-450 [facility] Potassium measurement (mass/ volume)Ordered By: Eboni Katz on 10-27-2024 Potassium (Unsp spec) [Mass/Vol] 4.8 mmol/L 3.3-5.1 [facility] RBC Auto (Bld) [#/Vol]Ordere d By: Eboni Katz on 10-27-2024 RBC (Bld) [#/Vol] 4.61 10*6/uL 4.2-5.4 [facility] Serum creatinine measurement (mass/volume)Ordered By: Eboni Katz on 10-27-2024 Creatinine [Mass/Vol] 1.13 mg/dL 0.70-1.20 [facility] Serum globulin measurementOr dered By: Eboni Katz on 10-27-2024 Globulin (S) [Mass/Vol] 2.9 g/dL 2.2-4.2 [facility] Serum glucose measurement (m ass/volume)Ordered By: Eboni Katz on 10-27-2024 Glucose [Mass/Vol] 103 mg/dL High 70-99 [facility] Serum or plasma alanine rocha otransferase (ALT) measurementOrdered By: Eboni Katz on 10-27-2024 ALT [Catalytic activity/Vol] 19 U/L <35 [facility] Serum or plasma albumin jose l urement (mass/volume)Ordered By: Eboni Katz on 10-27-2024 Albumin [Mass/Vol] 4.3 g/dL 3.4-4.8 [facility] Serum or plasma albumin/glob ulin mass ratioOrdered By: Don[place]aretha Katz on 10-27-2024 Albumin/Globulin [Mass ratio] 1.5 {ratio} 0.9-2.4 [facility] Serum or plasma alkaline kamaljit sphatase measurementOrdered By: Eboni Katz on 10-27-2024 ALP [Catalytic activity/Vol] 88 U/L 35-104 [facility] Serum or plasma calcium jose l urement (mass/volume)Ordered By: Eboni Katz on 10-27-2024 Calcium [Mass/Vol] 10.1 mg/dL 7.6-11.0 [facility] Serum or plasma urea nitroge n measurement (mass/volume)Ordered By: Eboni Katz on 10-27-2024 Urea nitrogen [Mass/Vol] 20 mg/dL High 4-19 [facility] Sodium levelOrdered By: Don Katz on 10-27-2024 Sodium [Moles/Vol] 140 mmol/L 133-145 [facility] T4 Free Directon 10-27-2024 T4 FREE DIRECT 1.30 ng/dL Normal 0.76-1.46 [facility] Comment on above: Performed By: #### M 100.7900, L7000.0700, L100.0100, M100.0605 #### [facility] [address] [place], [place], [address] T4 freeOrdered By: Eboni Katz on 10-27-2024 Free T4 [Mass/Vol] 1.30 ng/dL 0.76-1.46 [facility] TSH DL <= 0.005 mIU/L QnOrde red By: Eboni Katz on 10-27-2024 TSH Qn 3.280 uIU/mL 0.300-4.200 [facility] Thyroid Stim Hormone (TSH)on 10-27-2024 TSH 3.280 uIU/mL Normal 0.300-4.200 [facility] Comment on above: Performed By: #### M 100.7900, L7000.0700, L100.0100, M100.0605 #### [facility] [address] [place], [id number] Total proteinOrdered By: Kentrell bobaretha Katz on 10-27-2024 Protein [Mass/Vol] 7.2 g/dL 5.9-8.4 [facility] Vitamin D,25 Hydroxyon 10-27 Vitamin D 25-OH 53.2 ng/mL Normal 30-100 [facility] Comment on above: Result Comment: Miryam min D Status Deficiency: <20 ng/mL (50nmol/L) Insufficiency: 20-30 ng/mL (50-75 nmol/L) Sufficiency: 30-100 ng/mL (75-250 nmol/L) Toxicity: >100 ng/mL (>250 nmol/L) Performed By: #### M 100.7900, L7000.0700, L100.0100, M100.0605 #### [facility] [address] [place], [id number] White blood cell (WBC) count Ordered By: Eboni Katz on 10-27-2024 WBC (Bld) [#/Vol] 7.2 10*3/uL 4.4-11.0 [facility] Internal Medicine Office Vis randy 07-26-2024 Internal Medicine Office Visit [facility] [address] [place] [address] [address] [place] [address] OFFICE VISIT Date of Service: 07/26/24 MR#: [id number] Acct: [id number] Name: GEORGIA RO Rep #: [id number] : 1945 Provider: Dr. Eboni garcia MD Age/Sex: 78/F Location: [facility] [place] Status: Signed Intake Vital Signs 04/19/24 10:28 [...] pt states she is out of metformin [facility] Medical History PONV (postoperative nausea and vomiting) [...] but contin (more content not included)... Normal [facility] - Hematology and Cell countsOrdered By: Eboni Katz on 07-26-2024 HbA1c (Bld) [Mass fraction] 6.2 % 4.2-6.3 [facility] CBC W/Diff, Automatedon Absolute Lymph 2.22 X10 3/uL Normal 0.83-4.51 [facility] Comment on above: Performed By: #### L 100.0100, L500.4050, L101.9900, L501.6710 #### [facility] [address] [place], [address] Absolute Neut 4.3 X10 3/uL Normal 2.0-7.7 [facility] Comment on above: Performed By: #### L 100.0100, L500.4050, L101.9900, L501.6710 #### [facility] [address] [place], [address] Basophils/100 WBC (Bld) 1.1 % High 0-1 [facility] Comment on above: Performed By: #### L 100.0100, L500.4050, L101.9900, L501.6710 #### [facility] [address] [place], [address] Eosinophils/100 WBC (Bld) 2.3 % Normal 0-5 [facility] Comment on above: Performed By: #### L 100.0100, L500.4050, L101.9900, L501.6710 #### [facility] [address] [place], [address] Erythrocyte distribution width (RBC) [Ratio] 12.8 % Normal 11.6-14.6 [facility] Comment on above: Performed By: #### L 100.0100, L500.4050, L101.9900, L501.6710 #### [facility] [address] [place], [address] Hematocrit (Bld) [Volume fraction] 39.5 % Normal 37-47 [facility] Comment on above: Performed By: #### L 100.0100, L500.4050, L101.9900, L501.6710 #### [facility] [address] [place], [address] Hemoglobin (Bld) [Mass/Vol] 13.1 g/dL Normal 12.0-15.0 [facility] Comment on above: Performed By: #### L 100.0100, L500.4050, L101.9900, L501.6710 #### [facility] [address] [place], [address] IG% 0.700 Normal 0.0-0.9 [facility] Comment on above: Result Comment: IG% - Immature Granulocytes (promyelocytes, myelocytes and metamyelocytes) > 1% indicates that a LEFT SHIFT is Present. Performed By: #### L 100.0100, L500.4050, L101.9900, L501.6710 #### [facility] [address] [place], [address] Lymphocytes/100 WBC (Bld) 29.5 % Normal 19-41 [facility] Comment on above: Performed By: #### L 100.0100, L500.4050, L101.9900, L501.6710 #### [facility] [address] [place], [address] MCH (RBC) [Entitic mass] 29.7 pg Normal 27.0-32.0 [facility] Comment on above: Performed By: #### L 100.0100, L500.4050, L101.9900, L501.6710 #### [facility] [address] [place], [address] MCHC (RBC) [Mass/Vol] 33.2 g/dL Normal 32-36 [facility] Comment on above: Performed By: #### L 100.0100, L500.4050, L101.9900, L501.6710 #### [facility] [address] [place], [address] MCV (RBC) [Entitic vol] 89.6 fL Normal 81-99 [facility] Comment on above: Performed By: #### L 100.0100, L500.4050, L101.9900, L501.6710 #### [facility] [address] [place], [address] Monocytes/100 WBC (Bld) 9.0 % Normal 0-10 [facility] Comment on above: Performed By: #### L 100.0100, L500.4050, L101.9900, L501.6710 #### [facility] [address] [place], [address] Neutrophils/100 WBC (Bld) 57.4 % Normal 47-70 [facility] Comment on above: Performed By: #### L 100.0100, L500.4050, L101.9900, L501.6710 #### [facility] [address] [place], [address] Nucleated RBC (Bld) [#/Vol] 0 10*3/uL Normal 0-5 [facility] Comment on above: Performed By: #### L 100.0100, L500.4050, L101.9900, L501.6710 #### [facility] [address] [place], [address] Platelet mean volume (Bld) [Entitic vol] 10.5 fL Normal 6.2-12.0 [facility] Comment on above: Performed By: #### L 100.0100, L500.4050, L101.9900, L501.6710 #### [facility] [address] [place], [address] Platelets (Bld) [#/Vol] 229 10*3/uL Normal 150-450 [facility] Comment on above: Performed By: #### L 100.0100, L500.4050, L101.9900, L501.6710 #### [facility] [address] [place], [address] RBC (Bld) [#/Vol] 4.41 10*6/uL Normal 4.2-5.4 [facility] Comment on above: Performed By: #### L 100.0100, L500.4050, L101.9900, L501.6710 #### [facility] [address] [place], [address] RDW SD 42.1 fl Normal 35.1-43.9 [facility] Comment on above: Performed By: #### L 100.0100, L500.4050, L101.9900, L501.6710 #### [facility] [address] [place], [address] WBC (Bld) [#/Vol] 7.5 10*3/uL Normal 4.4-11.0 [facility] Comment on above: Performed By: #### L 100.0100, L500.4050, L101.9900, L501.6710 #### [facility] [address] [place], [address] Comprehensive Metabolic Prof ilon 06-24-2024 Albumin [Mass/Vol] 4.2 g/dL Normal 3.4-4.8 [facility] Comment on above: Performed By: #### L 100.0100, L500.4050, L101.9900, L501.6710 #### [facility] [address] [place], [address] Albumin/Globulin [Mass ratio] 1.5 {ratio} Normal 0.9-2.4 [facility] Comment on above: Performed By: #### L 100.0100, L500.4050, L101.9900, L501.6710 #### [facility] [address] [place], [address] ALK PHOS 98 U/L Normal 35-104 [facility] Comment on above: Performed By: #### L 100.0100, L500.4050, L101.9900, L501.6710 #### [facility] [address] [place], [address] ALT [Catalytic activity/Vol] 13 U/L Normal <=34 [facility] Comment on above: Performed By: #### L 100.0100, L500.4050, L101.9900, L501.6710 #### [facility] [address] [place], [address] AST [Catalytic activity/Vol] 19 U/L Normal <=31 [facility] Comment on above: Performed By: #### L 100.0100, L500.4050, L101.9900, L501.6710 #### [facility] [address] [place], [address] Bilirubin [Mass/Vol] 0.47 mg/dL Normal 0.00-1.30 [facility] Comment on above: Performed By: #### L 100.0100, L500.4050, L101.9900, L501.6710 #### [facility] [address] [place], [address] BUN/CRE 19.7 RATIO Normal 10-20 [facility] Comment on above: Performed By: #### L 100.0100, L500.4050, L101.9900, L501.6710 #### [facility] [address] [place], [address] Calcium [Mass/Vol] 9.7 mg/dL Normal 7.6-11.0 [facility] Comment on above: Performed By: #### L 100.0100, L500.4050, L101.9900, L501.6710 #### [facility] [address] [place], [address] Chloride [Moles/Vol] 100 mmol/L Normal 98-108 [facility] Comment on above: Performed By: #### L 100.0100, L500.4050, L101.9900, L501.6710 #### [facility] [address] [place], [address] CO2 [Moles/Vol] 25.9 mmol/L Normal 21.0-32.0 [facility] Comment on above: Performed By: #### L 100.0100, L500.4050, L101.9900, L501.6710 #### [facility] [address] [place], [address] Creatinine [Mass/Vol] 1.09 mg/dL Normal 0.70-1.20 [facility] Comment on above: Performed By: #### L 100.0100, L500.4050, L101.9900, L501.6710 #### [facility] [address] [place], [address] ECRCL 49.32 ml/min Low 50-250 [facility] Comment on above: Performed By: #### L 100.0100, L500.4050, L101.9900, L501.6710 #### [facility] [address] [place], [address] GAP 11 Normal 5-15 [facility] Comment on above: Performed By: #### L 100.0100, L500.4050, L101.9900, L501.6710 #### [facility] [address] [place], [address] GFR/1.73 sq M.predicted among non-blacks MDRD (S/P/Bld) [Vol rate/Area] 52 mL/min/{1.73_m2} Low >60 [facility] Comment on above: Result Comment: mL/m in/1.73m2 CKD-EPI Creatinine Equation (2020) Performed By: #### L 100.0100, L500.4050, L101.9900, L501.6710 #### [facility] [address] [place], [address] Globulin (S) [Mass/Vol] 2.8 g/dL Normal 2.2-4.2 [facility] Comment on above: Performed By: #### L 100.0100, L500.4050, L101.9900, L501.6710 #### [facility] [address] [place], [address] Glucose [Mass/Vol] 106 mg/dL High 70-99 [facility] Comment on above: Performed By: #### L 100.0100, L500.4050, L101.9900, L501.6710 #### [facility] [address] [place], [address] Potassium [Moles/Vol] 4.2 mmol/L Normal 3.3-5.1 [facility] Comment on above: Performed By: #### L 100.0100, L500.4050, L101.9900, L501.6710 #### [facility] [address] [place], [address] Sodium [Moles/Vol] 138 mmol/L Normal 133-145 [facility] Comment on above: Performed By: #### L 100.0100, L500.4050, L101.9900, L501.6710 #### [facility] [address] [place], [address] T PROT 7.0 g/dL Normal 5.9-8.4 [facility] Comment on above: Performed By: #### L 100.0100, L500.4050, L101.9900, L501.6710 #### [facility] [address] [place], [address] Urea nitrogen [Mass/Vol] 22 mg/dL High 4-19 [facility] Comment on above: Performed By: #### L 100.0100, L500.4050, L101.9900, L501.6710 #### [facility] [address] [place], [address] LDHon 06-24-2024 LDH 170 U/L Normal 84-246 [facility] Comment on above: Order Comment: 1 Performed By: #### L 100.0100, L500.4050, L101.9900, L501.6710 #### [facility] [address] [place], [address] Oncology Visit Reporton Oncology Visit Report [facility] [address] [place] [address] OFFICE VISIT Date of Service: 06/24/24 1119 MR#: [id number] Acct: [id number] Name: GEORGIA RO Rep #: [id number] : 1945 From: Konstantin Saha MD Age/Sex: 78/F Location[place] [facility] [place] Status: Signed HPI Subjective Date of Service [...] other quantitatively significant hypermetabolic abnormalities are encountered. [facility] Medical History PONV (postoperative nausea and vomiting) [...] safe at home: Yes additional social history: [facility] SUN EXPOSURE: FREQUENTLY ROS Constitutional Constitutional: [...] Endocrine Endocrino (more content not included)... Normal [facility] Abdomen Limitedon 06-17-2024 Abdomen Limited [facility] Imaging Services [address] [place], [place] [address] Abdomen Limited MR#: [id number] Acct: [id number] Name: GEORGIA RO Rep #: [id number] : 1945 F 78 From: Andre sagastume MD PCP: Dr. Eboni Katz MD Status: REG CLI Study: Abdomen Limited Date of Exam: 06/17/24 Exam# [id number] Ordering Dr: Ruby Parekh PROCEDURE: ABDOMEN LIMITED [...] fatty infiltration of the liver. Reading Location: [facility] CC: Dr. Eboni Katz MD; BHANU Muñoz Healthcare Analyst: Signed Normal [facility] Gastroenterology Visit Repor ton 06-11-2024 Gastroenterology Visit Report [facility] [address] [place] [address] OFFICE VISIT Date of Service: 06/11/24 MR#: [id number] Acct: [id number] Name: GEORGIA RO ANN Rep #: [id number] : 1945 Provider: BHANU Muñoz Age/Sex: 78/F Location: [facility] [place] Status: Signed Intake Vital Signs 04/19/24 10:28 Height 5 ft 6 in Weight: 211 lb BMI 34.0 BP 122/80 H Blood Pressure Location Lt brachial Position Sitting Respiration 16 Pulse 73 Pulse Source Monitor Temp 97.5 F L Temp Source Temporal Pulse Oximetry (%) 99 Oxygen Delivery Method room air Intake Visit Reasons: follow up 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 Continues pantoprazole and benefiber daily. [facility] Medical History PONV (postoperative nausea and vomiting) [...] wnl, KUB showing constipation, FOBT negative OV 06.11.24; Pt continues to have daily burning epigastric [...] difficulty swallowing (more content not included)... Normal [facility] Stool Occult Blood iFOBon STOB Negative Normal [facility] Comment on above: Performed By: #### M 100.7900, L7000.0700, L100.0100, M100.0605 #### [facility] [address] [facility] [place], [address] Abdomen Single Viewon 2024 Abdomen Single View [facility] Imaging Services [address] [place], [place] [id number] Abdomen Single View MR#: [id number] Acct: [id number] Name: GEORGIA RO ANN Rep #: [id number] : 1945 F 78 From: Wilbert Lane MD PCP: Dr. Eboni Katz MD Status: REG CLI Study: Abdomen Single View Date of Exam: 06/02/24 Exam# [id number] Ordering Dr: Ruby Parekh EXAM: XR Abdomen, 1 View CLINICAL INDICATION: TECHNIQUE: Frontal supine view of the abdomen/pelvis. COMPARISON: No relevant prior studies available. FINDINGS: GASTROINTESTINAL TRACT: Fecal retention in the colon consistent with constipation. No dilation. BONES/JOINTS: Unremarkable. No acute fracture. RAD/Abdomen Single View IMPRESSION: Fecal retention in the colon consistent with constipation. Reading [facility] CC: Dr. Eboni Katz MD; BHANU Muñoz Healthcare Analyst: Signed Normal [facility] CBC W/Diff, Automatedon - Absolute Lymph 2.37 X10 3/uL Normal 0.83-4.51 [facility] Comment on above: Performed By: #### L 100.0100, L500.4050, L101.9900, L501.6710 #### [facility] [address] [place], [address] Absolute Neut 3.4 X10 3/uL Normal 2.0-7.7 [facility] Comment on above: Performed By: #### L 100.0100, L500.4050, L101.9900, L501.6710 #### [facility] [address] [place], [address] Basophils/100 WBC (Bld) 0.9 % Normal 0-1 [facility] Comment on above: Performed By: #### L 100.0100, L500.4050, L101.9900, L501.6710 #### [facility] [address] [place], [address] Eosinophils/100 WBC (Bld) 2.0 % Normal 0-5 [facility] Comment on above: Performed By: #### L 100.0100, L500.4050, L101.9900, L501.6710 #### [facility] [address] [place], [address] Erythrocyte distribution width (RBC) [Ratio] 12.9 % Normal 11.6-14.6 [facility] Comment on above: Performed By: #### L 100.0100, L500.4050, L101.9900, L501.6710 #### [facility] [address] [place], [address] Hematocrit (Bld) [Volume fraction] 40.4 % Normal 37-47 [facility] Comment on above: Performed By: #### L 100.0100, L500.4050, L101.9900, L501.6710 #### [facility] [address] [place], [address] Hemoglobin (Bld) [Mass/Vol] 13.1 g/dL Normal 12.0-15.0 [facility] Comment on above: Performed By: #### L 100.0100, L500.4050, L101.9900, L501.6710 #### [facility] [address] [place], [address] IG% 0.800 Normal 0.0-0.9 [facility] Comment on above: Result Comment: IG% - Immature Granulocytes (promyelocytes, myelocytes and metamyelocytes) > 1% indicates that a LEFT SHIFT is Present. Performed By: #### L 100.0100, L500.4050, L101.9900, L501.6710 #### [facility] [address] [place], [address] Lymphocytes/100 WBC (Bld) 36.1 % Normal 19-41 [facility] Comment on above: Performed By: #### L 100.0100, L500.4050, L101.9900, L501.6710 #### [facility] [address] [place], [address] MCH (RBC) [Entitic mass] 29.2 pg Normal 27.0-32.0 [facility] Comment on above: Performed By: #### L 100.0100, L500.4050, L101.9900, L501.6710 #### [facility] [address] [place], [address] MCHC (RBC) [Mass/Vol] 32.4 g/dL Normal 32-36 [facility] Comment on above: Performed By: #### L 100.0100, L500.4050, L101.9900, L501.6710 #### [facility] [address] [place], [address] MCV (RBC) [Entitic vol] 90.2 fL Normal 81-99 [facility] Comment on above: Performed By: #### L 100.0100, L500.4050, L101.9900, L501.6710 #### [facility] [address] [place], [address] Monocytes/100 WBC (Bld) 8.2 % Normal 0-10 [facility] Comment on above: Performed By: #### L 100.0100, L500.4050, L101.9900, L501.6710 #### [facility] [facility] [address], [address] Neutrophils/100 WBC (Bld) 52.0 % Normal 47-70 [facility] Comment on above: Performed By: #### L 100.0100, L500.4050, L101.9900, L501.6710 #### [facility] [address] [place], [address] Nucleated RBC (Bld) [#/Vol] 0 10*3/uL Normal 0-5 [facility] Comment on above: Performed By: #### L 100.0100, L500.4050, L101.9900, L501.6710 #### [facility] [address] [place], [address] Platelet mean volume (Bld) [Entitic vol] 10.8 fL Normal 6.2-12.0 [facility] Comment on above: Performed By: #### L 100.0100, L500.4050, L101.9900, L501.6710 #### [facility] [address] [place], [address] Platelets (Bld) [#/Vol] 232 10*3/uL Normal 150-450 [facility] Comment on above: Performed By: #### L 100.0100, L500.4050, L101.9900, L501.6710 #### [facility] [address] [place], [address] RBC (Bld) [#/Vol] 4.48 10*6/uL Normal 4.2-5.4 [facility] Comment on above: Performed By: #### L 100.0100, L500.4050, L101.9900, L501.6710 #### [facility] [address] [place], [address] RDW SD 42.5 fl Normal 35.1-43.9 [facility] Comment on above: Performed By: #### L 100.0100, L500.4050, L101.9900, L501.6710 #### [facility] [address] [place], [address] WBC (Bld) [#/Vol] 6.6 10*3/uL Normal 4.4-11.0 [facility] Comment on above: Performed By: #### L 100.0100, L500.4050, L101.9900, L501.6710 #### [facility] [address] [place], [address] CRPon 06-02-2024 C-REACTIVE PROT < 2.90 Normal 0.0-3.0 [facility] Comment on above: Result Comment: C-Re active Protein (CRP) provides useful information for the diagnosis, therapy and monitoring of inflammatory processes and associated diseases. For the evaluation of Relative Risk for Cardiovascular Disease, a High Sensitivity CRP (HSCRP) should be ordered. Performed By: #### L 100.0100, L500.4050, L101.9900, L501.6710 #### [facility] [address] [place], [address] Comprehensive Metabolic Prof ilon 06-02-2024 Albumin [Mass/Vol] 3.3 g/dL Normal 3.2-5.0 [facility] Comment on above: Performed By: #### L 100.0100, L500.4050, L101.9900, L501.6710 #### [facility] [address] [place], [address] Albumin/Globulin [Mass ratio] 0.9 {ratio} Normal 0.9-2.4 [facility] Comment on above: Performed By: #### L 100.0100, L500.4050, L101.9900, L501.6710 #### [facility] [address] [place], [address] ALK P 89 U/L Normal 45-117 [facility] Comment on above: Performed By: #### L 100.0100, L500.4050, L101.9900, L501.6710 #### [facility] [address] [place], [address] ALT [Catalytic activity/Vol] 20 U/L Normal 13-56 [facility] Comment on above: Performed By: #### L 100.0100, L500.4050, L101.9900, L501.6710 #### [facility] [address] [place], [address] AST [Catalytic activity/Vol] 17 U/L Normal 15-37 [facility] Comment on above: Performed By: #### L 100.0100, L500.4050, L101.9900, L501.6710 #### [facility] [address] [place], [address] Bilirubin [Mass/Vol] 0.60 mg/dL Normal 0.20-1.00 [facility] Comment on above: Result Comment: For patients on eltrombopag therapy, use of Dimension [place] TBIL is not recommended. Performed By: #### L 100.0100, L500.4050, L101.9900, L501.6710 #### [facility] [address] [place], [address] BUN/CRE 25.3 RATIO High 10-20 [facility] Comment on above: Performed By: #### L 100.0100, L500.4050, L101.9900, L501.6710 #### [facility] [address] [place], [address] CA,Total 9.5 mg/dL Normal 8.5-10.1 [facility] Comment on above: Performed By: #### L 100.0100, L500.4050, L101.9900, L501.6710 #### [facility] [address] [place], [address] Chloride [Moles/Vol] 103 mmol/L Normal 98-107 [facility] Comment on above: Performed By: #### L 100.0100, L500.4050, L101.9900, L501.6710 #### [facility] [address] [place], [address] CO2 [Moles/Vol] 29.0 mmol/L Normal 21.0-32.0 [facility] Comment on above: Performed By: #### L 100.0100, L500.4050, L101.9900, L501.6710 #### [facility] [address] [place], [address] Creatinine [Mass/Vol] 0.95 mg/dL Normal 0.55-1.02 [facility] Comment on above: Result Comment: The validity of the calculated GFR GFRAA in patients over 70 years has not been determined. Clinical correlation is essential. Performed By: #### L 100.0100, L500.4050, L101.9900, L501.6710 #### [facility] [address] [place], [address] EST GFR - AA 73 mL/min Normal >60 [facility] Comment on above: Result Comment: Afri can Mal[place]ian GFR Calc Performed By: #### L 100.0100, L500.4050, L101.9900, L501.6710 #### [facility] [address] [place], [address] GAP 6 Normal 5-15 [facility] Comment on above: Performed By: #### L 100.0100, L500.4050, L101.9900, L501.6710 #### [facility] [address] [place], [address] GFR/1.73 sq M.predicted among non-blacks MDRD (S/P/Bld) [Vol rate/Area] 61 mL/min/{1.73_m2} Normal >60 [facility] Comment on above: Result Comment: Non- GFR Calc Performed By: #### L 100.0100, L500.4050, L101.9900, L501.6710 #### [facility] [address] [place], [address] Globulin (S) [Mass/Vol] 3.7 g/dL Normal 2.2-4.2 [facility] Comment on above: Performed By: #### L 100.0100, L500.4050, L101.9900, L501.6710 #### [facility] [address] [place], [address] Glucose [Mass/Vol] 129 mg/dL High 74-106 [facility] Comment on above: Result Comment: Fast ing Glucose result greater than or equal to 126 mg/dL suggests DIABETES MELLITUS per A.D.A. criteria. Performed By: #### L 100.0100, L500.4050, L101.9900, L501.6710 #### [facility] [address] [place], [address] Potassium [Moles/Vol] 3.7 mmol/L Normal 3.5-5.1 [facility] Comment on above: Performed By: #### L 100.0100, L500.4050, L101.9900, L501.6710 #### [facility] [address] [place], [address] Sodium [Moles/Vol] 139 mmol/L Normal 136-145 [facility] Comment on above: Performed By: #### L 100.0100, L500.4050, L101.9900, L501.6710 #### [facility] [address] [place], [address] T PROT 7.0 g/dL Normal 6.4-8.2 [facility] Comment on above: Performed By: #### L 100.0100, L500.4050, L101.9900, L501.6710 #### [facility] [address] [place], [address] Urea nitrogen [Mass/Vol] 24 mg/dL High 7-18 [facility] Comment on above: Performed By: #### L 100.0100, L500.4050, L101.9900, L501.6710 #### [facility] [address] [place], [address] Erythrocyte Sed Rateon 06-02 SED RATE 18 mm/hr Normal 0-30 [facility] Comment on above: Performed By: #### L 100.0100, L500.4050, L101.9900, L501.6710 #### [facility] [address] [place], [address] CBC W/Diff, Automatedon 03-23 Absolute Lymph 1.95 X10 3/uL Normal 0.83-4.51 [facility] Comment on above: Performed By: #### L 100.0100, L500.4050, L101.9900, L501.6710 #### [facility] [address] [place], [address] Absolute Neut 4.0 X10 3/uL Normal 2.0-7.7 [facility] Comment on above: Performed By: #### L 100.0100, L500.4050, L101.9900, L501.6710 #### [facility] [address] [place], [address] Basophils/100 WBC (Bld) 1.0 % Normal 0-1 [facility] Comment on above: Performed By: #### L 100.0100, L500.4050, L101.9900, L501.6710 #### [facility] [address] [place], [address] Eosinophils/100 WBC (Bld) 1.0 % Normal 0-5 [facility] Comment on above: Performed By: #### L 100.0100, L500.4050, L101.9900, L501.6710 #### [facility] [address] [place], [address] Erythrocyte distribution width (RBC) [Ratio] 13.2 % Normal 11.6-14.6 [facility] Comment on above: Performed By: #### L 100.0100, L500.4050, L101.9900, L501.6710 #### [facility] [address] [place], [address] Hematocrit (Bld) [Volume fraction] 40.9 % Normal 37-47 [facility] Comment on above: Performed By: #### L 100.0100, L500.4050, L101.9900, L501.6710 #### [facility] [address] [place], [address] Hemoglobin (Bld) [Mass/Vol] 13.5 g/dL Normal 12.0-15.0 [facility] Comment on above: Performed By: #### L 100.0100, L500.4050, L101.9900, L501.6710 #### [facility] [address] [place], [address] IG% 0.700 Normal 0.0-0.9 [facility] Comment on above: Result Comment: IG% - Immature Granulocytes (promyelocytes, myelocytes and metamyelocytes) > 1% indicates that a LEFT SHIFT is Present. Performed By: #### L 100.0100, L500.4050, L101.9900, L501.6710 #### [facility] [address] [place], [address] Lymphocytes/100 WBC (Bld) 28.6 % Normal 19-41 [facility] Comment on above: Performed By: #### L 100.0100, L500.4050, L101.9900, L501.6710 #### [facility] [address] [place], [address] MCH (RBC) [Entitic mass] 30.4 pg Normal 27.0-32.0 [facility] Comment on above: Performed By: #### L 100.0100, L500.4050, L101.9900, L501.6710 #### [facility] [address] [place], [address] MCHC (RBC) [Mass/Vol] 33.0 g/dL Normal 32-36 [facility] Comment on above: Performed By: #### L 100.0100, L500.4050, L101.9900, L501.6710 #### [facility] [address] [place], [address] MCV (RBC) [Entitic vol] 92.1 fL Normal 81-99 [facility] Comment on above: Performed By: #### L 100.0100, L500.4050, L101.9900, L501.6710 #### [facility] [address] [place], [address] Monocytes/100 WBC (Bld) 9.4 % Normal 0-10 [facility] Comment on above: Performed By: #### L 100.0100, L500.4050, L101.9900, L501.6710 #### [facility] [address] [place], [address] Neutrophils/100 WBC (Bld) 59.3 % Normal 47-70 [facility] Comment on above: Performed By: #### L 100.0100, L500.4050, L101.9900, L501.6710 #### [facility] [address] [place], [address] Nucleated RBC (Bld) [#/Vol] 0 10*3/uL Normal 0-5 [facility] Comment on above: Performed By: #### L 100.0100, L500.4050, L101.9900, L501.6710 #### [facility] [address] [place], [address] Platelet mean volume (Bld) [Entitic vol] 10.9 fL Normal 6.2-12.0 [facility] Comment on above: Performed By: #### L 100.0100, L500.4050, L101.9900, L501.6710 #### [facility] [address] [place], [address] Platelets (Bld) [#/Vol] 243 10*3/uL Normal 150-450 [facility] Comment on above: Performed By: #### L 100.0100, L500.4050, L101.9900, L501.6710 #### [facility] [address] [place], [address] RBC (Bld) [#/Vol] 4.44 10*6/uL Normal 4.2-5.4 [facility] Comment on above: Performed By: #### L 100.0100, L500.4050, L101.9900, L501.6710 #### [facility] [address] [place], [address] RDW SD 44.9 fl High 35.1-43.9 [facility] Comment on above: Performed By: #### L 100.0100, L500.4050, L101.9900, L501.6710 #### [facility] [address] [place], [address] WBC (Bld) [#/Vol] 6.8 10*3/uL Normal 4.4-11.0 [facility] Comment on above: Performed By: #### L 100.0100, L500.4050, L101.9900, L501.6710 #### [facility] [address] [place], [address] [facility] Metabolic [facility] 04-19-2024 Albumin [Mass/Vol] 3.5 g/dL Normal 3.2-5.0 [facility] Comment on above: Performed By: #### L 100.0100, L500.4050, L101.9900, L501.6710 #### [facility] [address] [place], [address] Albumin/Globulin [Mass ratio] 1.0 {ratio} Normal 0.9-2.4 [facility] Comment on above: Performed By: #### L 100.0100, L500.4050, L101.9900, L501.6710 #### [facility] [address] [place], [address] ALK P 89 U/L Normal 45-117 [facility] Comment on above: Performed By: #### L 100.0100, L500.4050, L101.9900, L501.6710 #### [facility] [address] [place], [address] ALT [Catalytic activity/Vol] 21 U/L Normal 13-56 [facility] Comment on above: Performed By: #### L 100.0100, L500.4050, L101.9900, L501.6710 #### [facility] [address] [place], [address] AST [Catalytic activity/Vol] 15 U/L Normal 15-37 [facility] Comment on above: Performed By: #### L 100.0100, L500.4050, L101.9900, L501.6710 #### [facility] [address] [place], [address] Bilirubin [Mass/Vol] 0.70 mg/dL Normal 0.20-1.00 [facility] Comment on above: Result Comment: For patients on eltrombopag therapy, use of Dimension [place] TBIL is not recommended. Performed By: #### L 100.0100, L500.4050, L101.9900, L501.6710 #### [facility] [address] [place], [address] BUN/CRE 21.1 RATIO High 10-20 [facility] Comment on above: Performed By: #### L 100.0100, L500.4050, L101.9900, L501.6710 #### [facility] [address] [place], [address] CA,Total 9.8 mg/dL Normal 8.5-10.1 [facility] Comment on above: Performed By: #### L 100.0100, L500.4050, L101.9900, L501.6710 #### [facility] [address] [place], [address] Chloride [Moles/Vol] 102 mmol/L Normal 98-107 [facility] Comment on above: Performed By: #### L 100.0100, L500.4050, L101.9900, L501.6710 #### [facility] [address] [place], [address] CO2 [Moles/Vol] 29.0 mmol/L Normal 21.0-32.0 [facility] Comment on above: Performed By: #### L 100.0100, L500.4050, L101.9900, L501.6710 #### [facility] [address] [place], [address] Creatinine [Mass/Vol] 1.00 mg/dL Normal 0.55-1.02 [facility] Comment on above: Result Comment: The validity of the calculated GFR GFRAA in patients over 70 years has not been determined. Clinical correlation is essential. Performed By: #### L 100.0100, L500.4050, L101.9900, L501.6710 #### [facility] [address] [place], [address] EST GFR - AA 69 mL/min Normal >60 [facility] Comment on above: Result Comment: Afri can Mal[place]ian GFR Calc Performed By: #### L 100.0100, L500.4050, L101.9900, L501.6710 #### [facility] [address] [place], [address] GAP 8 Normal 5-15 [facility] Comment on above: Performed By: #### L 100.0100, L500.4050, L101.9900, L501.6710 #### [facility] [address] [place], [address] GFR/1.73 sq M.predicted among non-blacks MDRD (S/P/Bld) [Vol rate/Area] 57 mL/min/{1.73_m2} Low >60 [facility] Comment on above: Result Comment: Non- GFR Calc Performed By: #### L 100.0100, L500.4050, L101.9900, L501.6710 #### [facility] [address] [place], [address] Globulin (S) [Mass/Vol] 3.6 g/dL Normal 2.2-4.2 [facility] Comment on above: Performed By: #### L 100.0100, L500.4050, L101.9900, L501.6710 #### [facility] [address] [place], [address] Glucose [Mass/Vol] 103 mg/dL Normal 74-106 [facility] Comment on above: Result Comment: Fast ing Glucose result from 100 to 125 mg/dL suggests IMPAIRED HOMEOSTASIS per A.D.A. criteria. Performed By: #### L 100.0100, L500.4050, L101.9900, L501.6710 #### [facility] [address] [place], [address] Potassium [Moles/Vol] 4.3 mmol/L Normal 3.5-5.1 [facility] Comment on above: Performed By: #### L 100.0100, L500.4050, L101.9900, L501.6710 #### [facility] [address] [place], [address] Sodium [Moles/Vol] 138 mmol/L Normal 136-145 [facility] Comment on above: Performed By: #### L 100.0100, L500.4050, L101.9900, L501.6710 #### [facility] [address] [place], [address] T PROT 7.1 g/dL Normal 6.4-8.2 [facility] Comment on above: Performed By: #### L 100.0100, L500.4050, L101.9900, L501.6710 #### [facility] [address] [place], [address] Urea nitrogen [Mass/Vol] 21 mg/dL High 7-18 [facility] Comment on above: Performed By: #### L 100.0100, L500.4050, L101.9900, L501.6710 #### [facility] [address] [place], [address] Hemoglobin A1con 04-19-2024 HbA1c (Bld) [Mass fraction] 5.9 % High 3.8-5.6 [facility] Comment on above: Result Comment: Norm al < 5.7 % Prediabetic 5.7 - 6.4 % Diabetic >or= 6.5 % Please note range changes. Performed By: #### L 100.0100, L500.4050, L101.9900, L501.6710 #### [facility] [address] [place], [address] Internal Medicine Office Vis iton 04-19-2024 Internal Medicine Office Visit [facility] [address] [place] [address] OFFICE VISIT Date of Service: 04/19/24 MR#: [id number] Acct: [id number] Name: GEORGIA RO Rep #: [id number] : 1945 Provider: Dr. Eboni garcia MD Age/Sex: 78/F Location: [facility] [place] Status: Signed Intake Vital Signs 01/01/24 11:20 [...] fu Chief Complaint: Follow-up chronic conditions. 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 Normal [facility] EGD Reporton 03-29-2024 EGD Report [facility] Medical Records Department [address] [place] [address] EGD Report MR#: [id number] Acct: [id number] Name: GEORGIA RO Rep #: [id number] : 1945 78 From: Moustapha Stanley DO PCP: Dr. Eboni Katz MD Status:REG [facility] Patient Name: Georgia Ro Procedure Date: 03/29/2024 [...] pathology results. Procedure Code(s): --- Professional --- 52257, Esophagogastroduodenosc opy, flexible, transoral; with biopsy, single or multiple CPT copyright 2021 [employer]. All rights reserved. The codes documented in this report are preliminary and upon steward/stewardess wine review may be revised to meet current compliance requirements. Moustapha Stanley DO 03/29/2024 9:02:24 AM This report has been signed electronically. Number of Addenda: 0 Note Initiated On: 03/29/2024 8:48 AM 03/29/24901 Date Moustapha Rodriguez Signature: Date _ (more content not included)... Normal [facility] H Pylori (initial)on H Pylori (initial) --- Patient Age/Sex Location Account Attending Physician GEORGIA RO 78/F EN [id number] Moustapha Stanley DO Specimen: [id number] Received: 03/29/24 Status: VIVEK Jones Num: [id number] Spec Type: IMMUNO Subm Dr: Moustapha Stanley, PHYSICIAN INSTITUTION [place] [address] SPECIMEN INFORMATION: Tissue Source: B- Gastric body biopsy Clinical Info: Acute bleeding Specimen Number: [id number] CPT code: 44337 METHODOLOGY: Deparaffinized sections of prefer/formalin-fixed tissue or [...] developed and their performance characteristics determined by [facility]. They may not have been cleared or approved by the U.S. Food and Drug Administration. The FDA has determined that such clearance or approval is not necessary. The above immunohistochemical/tomasz Kelby markers are ordered and reviewed by the Pathologist. INTERPRETATION: B. Gastric body, biopsy: Negative for Helicobacter pylori organisms. AM. 03/30/2024 Signed (signature on file) Dr. Ricardo Sargent, 03/30/[address] [facility] Comment on above: Performed By: #### L 100.0100, L500.4050, L101.9900, L501.6710 #### [facility] [address] [facility] [facility] [place], [address] MR/POSTOP.Dotty 03-29-2024 MR/POSTOP.[facility] Medical Records Department [address] [place] [address] Anesthesia Postop Eval I 03/29/24904 MR#: [id number] Acct: [id number] Name: GEORGIA RO Rep #: [id number] : 1945 78 From: Kavin Bowers PCP: Dr. Eboni Katz MD Status:REG SDC Y Race: C Location: [place] [address] Anesthesia: Postop Eval I Current Vital Signs [...] Kavin Lepe Signature: Date CC: Signed Normal [facility] MR/[id number] 03-29-2024 [facility] Medical Records Department [address] [place] [address] Anesthesia Postop Eval II 03/29/24918 MR#: [id number] Acct: [id number] Name: GEORGIA RO Rep #: [id number] : 1945 78 From: Bud Mata MD PCP: Dr. Eboni Katz MD Status:REG SD Y Race: C Location: [place] [address] Anesthesia Postop Eval I Sum Postop Eval [...] Bud Lepe Signature: Date CC: Signed Normal [facility] Special Stain Group Ion 12-0 Special Stain Group I ----- Patient Age/Sex Location Account Attending Physician GEORGIA RO/F RAINE [id number] Moustapha Stanley DO Specimen: [id number] Received: 03/29/24 Status: VIVEK Jones Num: [id number] Spec Type: EGD BIOPSY Subm Dr: Moustapha [...] for Helicobacter pylori will be reported separately ([id number]). C. Alcian blue/PAS stain with matched control [...] Account Attending Physician GEORGIA RO 78/F EN [id number] Moustapha Stanley DO CPT:47565a7,28614 Patient Age/Sex Location Account Attending Physician GEORGIA RO 78/F EN [id number] Moustaphalauren Stanley, DO Signed (signature on file) Dr. Ricardo Sargent DO 03/30/[address] [facility] Comment on above: Performed By: #### M 100.7900, L7000.0700, L100.0100, M100.0605 #### [facility] [address] [facility] [facility] [place], [address] Calprotectin, Stoolon [address] 174 ug/g Abnormal 0-120 [facility] Comment on above: Result Comment: Conc entration Interpretation Follow-Up < 5 - 50 ug/g Normal None >50 -120 ug/g Borderline Re-evaluate in 4-6 weeks >120 ug/g Abnormal Repeat as clinically indicated Performed at: [address] [id number] Donation Specialist: Hattie Hill MD, Phone: [phone] Performed By: #### M 100.7900, L7000.0700, L100.0100, M100.0605 #### [facility] [address] [place], [address] CBC W/Diff, Automatedon 11-04 22-2023 Absolute Lymph 2.01 X10 3/uL Normal 0.83-4.51 [facility] Comment on above: Performed By: #### M 100.7900, L7000.0700, L100.0100, M100.0605 #### [facility] Laboratory [address] [place], [address] Absolute Neut 4.4 X10 3/uL Normal 2.0-7.7 [facility] Comment on above: Performed By: #### M 100.7900, L7000.0700, L100.0100, M100.0605 #### [facility] [address] [place], [address] Basophils/100 WBC (Bld) 0.9 % Normal 0-1 [facility] Comment on above: Performed By: #### M 100.7900, L7000.0700, L100.0100, M100.0605 #### [facility] [address] [place], [address] Eosinophils/100 WBC (Bld) 2.0 % Normal 0-5 [facility] Comment on above: Performed By: #### M 100.7900, L7000.0700, L100.0100, M100.0605 #### [facility] [address] [place], [address] Erythrocyte distribution width (RBC) [Ratio] 13.7 % Normal 11.6-14.6 [facility] Comment on above: Performed By: #### M 100.7900, L7000.0700, L100.0100, M100.0605 #### [facility] [address] [place], [address] Hematocrit (Bld) [Volume fraction] 40.7 % Normal 37-47 [facility] Comment on above: Performed By: #### M 100.7900, L7000.0700, L100.0100, M100.0605 #### [facility] [address] [place], [address] Hemoglobin (Bld) [Mass/Vol] 13.0 g/dL Normal 12.0-15.0 [facility] Comment on above: Performed By: #### M 100.7900, L7000.0700, L100.0100, M100.0605 #### [facility] [address] [place], [address] IG% 1.900 High 0.0-0.9 [facility] Comment on above: Result Comment: IG% - Immature Granulocytes (promyelocytes, myelocytes and metamyelocytes) > 1% indicates that a LEFT SHIFT is Present. Performed By: #### M 100.7900, L7000.0700, L100.0100, M100.0605 #### [facility] [address] [place], [address] Lymphocytes/100 WBC (Bld) 26.8 % Normal 19-41 [facility] Comment on above: Performed By: #### M 100.7900, L7000.0700, L100.0100, M100.0605 #### [facility] [address] [place], [address] MCH (RBC) [Entitic mass] 29.5 pg Normal 27.0-32.0 [facility] Comment on above: Performed By: #### M 100.7900, L7000.0700, L100.0100, M100.0605 #### [facility] [address] [place], [address] MCHC (RBC) [Mass/Vol] 31.9 g/dL Low 32-36 [facility] Comment on above: Performed By: #### M 100.7900, L7000.0700, L100.0100, M100.0605 #### [facility] [address] [place], [address] MCV (RBC) [Entitic vol] 92.5 fL Normal 81-99 [facility] Comment on above: Performed By: #### M 100.7900, L7000.0700, L100.0100, M100.0605 #### [facility] [address] [place], [address] Monocytes/100 WBC (Bld) 9.9 % Normal 0-10 [facility] Comment on above: Performed By: #### M 100.7900, L7000.0700, L100.0100, M100.0605 #### [facility] [address] [place], [address] Neutrophils/100 WBC (Bld) 58.5 % Normal 47-70 [facility] Comment on above: Performed By: #### M 100.7900, L7000.0700, L100.0100, M100.0605 #### [facility] [address] [place], [address] Nucleated RBC (Bld) [#/Vol] 0 10*3/uL Normal 0-5 [facility] Comment on above: Performed By: #### M 100.7900, L7000.0700, L100.0100, M100.0605 #### [facility] [address] [place], [address] Platelet mean volume (Bld) [Entitic vol] 9.6 fL Normal 6.2-12.0 [facility] Comment on above: Performed By: #### M 100.7900, L7000.0700, L100.0100, M100.0605 #### [facility] [address] [place], [address] Platelets (Bld) [#/Vol] 324 10*3/uL Normal 150-450 [facility] Comment on above: Performed By: #### M 100.7900, L7000.0700, L100.0100, M100.0605 #### [facility] [address] [place], [address] RBC (Bld) [#/Vol] 4.40 10*6/uL Normal 4.2-5.4 [facility] Comment on above: Performed By: #### M 100.7900, L7000.0700, L100.0100, M100.0605 #### [facility] [address] [place], [address] RDW SD 46.6 fl High 35.1-43.9 [facility] Comment on above: Performed By: #### M 100.7900, L7000.0700, L100.0100, M100.0605 #### [facility] [address] [place], [address] WBC (Bld) [#/Vol] 7.5 10*3/uL Normal 4.4-11.0 [facility] Comment on above: Performed By: #### M 100.7900, L7000.0700, L100.0100, M100.0605 #### [facility] [address] [place], [address] Stool Lactoferrin/WBCon 02-19 WBCST Normal Reference Ran ge = Negative Fecal WBC Lactoferrin Negative: No Fecal WBC Lactoferrin present Normal [facility] Comment on above: Performed By: #### M 100.7900, L7000.0700, L100.0100, M100.0605 #### [facility] [address] [place], [address] Stool Occult Blood iFOBon STOB Normal Reference Ran ge = Negative Immunochemical Fecal Occult Blood (iFOBT) method. Hemoccult Stl Ql [place] Limitation: Menstrual bleeding, constipation bleeding, bleeding hemorrhoids, and urinary bleeding conditions may interfere with test. Occult Blood Negative Normal [facility] Comment on above: Performed By: #### M 100.7900, L7000.0700, L100.0100, M100.0605 #### [facility] [address] [place], [address] Gastroenterology Visit Repor ton 02-27-2024 Gastroenterology Visit Report [facility] [address] [place] [address] OFFICE VISIT Date of Service: 02/27/24 MR#: [id number] Acct: [id number] Name: GEORGIA RO Rep #: [id number] : 1945 Provider: BHANU Muñoz Age/Sex: 78/F Location: [facility] [place] Status: Signed Intake Vital Signs 01/01/24 [...] daily and sucralfate daily for two weeks. [facility] Medical History (Updated 02/24/24 @ 18:[address] Alex Hendricks, ) GI bleed Dark stools Left renal mass [...] to the office today for establishment with [facility]. For a month now pt has [...] Rodolfo/Lymp Hematologic/Lymph (more content not included)... Normal [facility] 12 Lead EKGon 02-24-2024 12 Lead EKG [facility] Cardiovascular Services [address] [place] [address] 12 Lead EKG 02/24/24 1643 MR#: [id number] Acct: [id number] Name: GEORGIA RO Rep #: [id number] : 1945 78 From: Manuel Roe MD [...] rhythm Normal ECG Confirmed by Manuel Roe ([id number]), news assignment editor RORO FAITH ([id number]) on 02/25/2024 1:06:54 PM Referred By: Confirmed By: Manuel Roe 02/25/24 1306 Date Mnauel Roe MD CC: Dr. Eboni Katz MD; Dr. Alex Hendricks DO Signed Normal [facility] Abdomen/Pelvis without Conto n 02-24-2024 Abdomen/Pelvis without Cont [facility] Imaging Services [address] [place], [place] [address] Abdomen/Pelvis without Cont MR#: [id number] Acct: [id number] Name: GEORGIA RO Rep #: [id number] : 1945 F 78 From: Gatito Ramirez MD PCP: Dr. Eboni Katz MD Status: REG ER Study: Abdomen/Pelvis without Cont Date of Exam: 09/11 Exam# [id number] Ordering Dr: [place] [id number] STUDY: CT ABDOMEN AND PELVIS WITHOUT CONTRAST [...] Signed: Gatito Ramirez MD at 17:36 EST Reading Location ID and State: [address] [place] [address] Tel , Service support , CC: Dr. Eboni Katz MD; Dr. Alex Hendricks DO Healthcare Analyst: Signed Normal [facility] BNP,B-Type NATRIURETIC PEPTI Cathryn 02-24-2024 Natriuretic peptide B (Bld) [Mass/Vol] 24.4 pg/mL Normal 0-100 [facility] Comment on above: Performed By: #### L 100.0100, L500.4050, L101.9900, L501.6710 #### [facility] [address] [place], [address] CBC W/Diff, Automatedon 11-0 -4 Absolute Lymph 1.25 X10 3/uL Normal 0.83-4.51 [facility] Comment on above: Performed By: #### L 100.0100, L500.4050, L101.9900, L501.6710 #### [facility] [address] [place], [address] Absolute Neut 5.5 X10 3/uL Normal 2.0-7.7 [facility] Comment on above: Performed By: #### L 100.0100, L500.4050, L101.9900, L501.6710 #### [facility] [address] [place], [address] Basophils/100 WBC (Bld) 0.6 % Normal 0-1 [facility] Comment on above: Performed By: #### L 100.0100, L500.4050, L101.9900, L501.6710 #### [facility] [address] [place], [address] Eosinophils/100 WBC (Bld) 4.8 % Normal 0-5 [facility] Comment on above: Performed By: #### L 100.0100, L500.4050, L101.9900, L501.6710 #### [facility] [address] [place], [address] Erythrocyte distribution width (RBC) [Ratio] 14.2 % Normal 11.6-14.6 [facility] Comment on above: Performed By: #### L 100.0100, L500.4050, L101.9900, L501.6710 #### [facility] [address] [place], [address] Hematocrit (Bld) [Volume fraction] 38.6 % Normal 37-47 [facility] Comment on above: Performed By: #### L 100.0100, L500.4050, L101.9900, L501.6710 #### [facility] [address] [place], [address] Hemoglobin (Bld) [Mass/Vol] 13.2 g/dL Normal 12.0-15.0 [facility] Comment on above: Performed By: #### L 100.0100, L500.4050, L101.9900, L501.6710 #### [facility] [address] [place], [address] IG% 0.600 Normal 0.0-0.9 [facility] Comment on above: Result Comment: IG% - Immature Granulocytes (promyelocytes, myelocytes and metamyelocytes) > 1% indicates that a LEFT SHIFT is Present. Performed By: #### L 100.0100, L500.4050, L101.9900, L501.6710 #### [facility] [address] [place], [address] Lymphocytes/100 WBC (Bld) 15.4 % Low 19-41 [facility] Comment on above: Performed By: #### L 100.0100, L500.4050, L101.9900, L501.6710 #### [facility] [address] [place], [address] MCH (RBC) [Entitic mass] 31.1 pg Normal 27.0-32.0 [facility] Comment on above: Performed By: #### L 100.0100, L500.4050, L101.9900, L501.6710 #### [facility] [address] [place], [address] MCHC (RBC) [Mass/Vol] 34.2 g/dL Normal 32-36 [facility] Comment on above: Performed By: #### L 100.0100, L500.4050, L101.9900, L501.6710 #### [facility] [address] [place], [address] MCV (RBC) [Entitic vol] 91.0 fL Normal 81-99 [facility] Comment on above: Performed By: #### L 100.0100, L500.4050, L101.9900, L501.6710 #### [facility] [address] [place], [address] Monocytes/100 WBC (Bld) 11.5 % High 0-10 [facility] Comment on above: Performed By: #### L 100.0100, L500.4050, L101.9900, L501.6710 #### [facility] [address] [place], [address] Neutrophils/100 WBC (Bld) 67.1 % Normal 47-70 [facility] Comment on above: Performed By: #### L 100.0100, L500.4050, L101.9900, L501.6710 #### [facility] [address] [place], [address] Nucleated RBC (Bld) [#/Vol] 0 10*3/uL Normal 0-5 [facility] Comment on above: Performed By: #### L 100.0100, L500.4050, L101.9900, L501.6710 #### [facility] [address] [place], [address] Platelet mean volume (Bld) [Entitic vol] 10.8 fL Normal 6.2-12.0 [facility] Comment on above: Performed By: #### L 100.0100, L500.4050, L101.9900, L501.6710 #### [facility] [address] [place], [address] Platelets (Bld) [#/Vol] 220 10*3/uL Normal 150-450 [facility] Comment on above: Performed By: #### L 100.0100, L500.4050, L101.9900, L501.6710 #### [facility] [address] [place], [address] RBC (Bld) [#/Vol] 4.24 10*6/uL Normal 4.2-5.4 [facility] Comment on above: Performed By: #### L 100.0100, L500.4050, L101.9900, L501.6710 #### [facility] [address] [place], [address] RDW SD 47.6 fl High 35.1-43.9 [facility] Comment on above: Performed By: #### L 100.0100, L500.4050, L101.9900, L501.6710 #### [facility] [address] [place], [address] WBC (Bld) [#/Vol] 8.1 10*3/uL Normal 4.4-11.0 [facility] Comment on above: Performed By: #### L 100.0100, L500.4050, L101.9900, L501.6710 #### [facility] [address] [place], [address] Chest 1 View (Portable)on Chest 1 View (Portable) [facility] Imaging Services [address] [place] [address] Chest 1 View (Portable) MR#: [id number] Acct: [id number] Name: GEORGIA RO Rep #: [id number] : 1945 F 78 From: Gatito Ramirez MD PCP: Dr. Eboni Katz MD Status: REG ER Study: Chest 1 View (Portable) Date of Exam: 02/24/24 Exam# [id number] Ordering Dr: [place] [id number] STUDY: X-RAY CHEST REASON FOR EXAM: Female, [...] 17:30 EST Reading Location ID and State: [facility] / [place] Tel , Service support , CC: Dr. Eboni Katz MD; Dr. Alex Hendricks DO Healthcare Analyst: Signed Normal [facility] Comprehensive Metabolic Prof ilon 02-24-2024 Albumin [Mass/Vol] 3.3 g/dL Normal 3.2-5.0 [facility] Comment on above: Performed By: #### L 100.0100, L500.4050, L101.9900, L501.6710 #### [facility] [address] [place], [address] Albumin/Globulin [Mass ratio] 1.0 {ratio} Normal 0.9-2.4 [facility] Comment on above: Performed By: #### L 100.0100, L500.4050, L101.9900, L501.6710 #### [facility] [address] [place], [address] ALK P 185 U/L High 45-117 [facility] Comment on above: Performed By: #### L 100.0100, L500.4050, L101.9900, L501.6710 #### [facility] [address] [place], [address] ALT [Catalytic activity/Vol] 61 U/L High 13-56 [facility] Comment on above: Performed By: #### L 100.0100, L500.4050, L101.9900, L501.6710 #### [facility] [address] [place], [address] AST [Catalytic activity/Vol] 23 U/L Normal 15-37 [facility] Comment on above: Performed By: #### L 100.0100, L500.4050, L101.9900, L501.6710 #### [facility] [address] [place], [address] Bilirubin [Mass/Vol] 0.80 mg/dL Normal 0.20-1.00 [facility] Comment on above: Result Comment: For patients on eltrombopag therapy, use of Dimension [place] TBIL is not recommended. Performed By: #### L 100.0100, L500.4050, L101.9900, L501.6710 #### [facility] [address] [place], [address] BUN/CRE 22.6 RATIO High 10-20 [facility] Comment on above: Performed By: #### L 100.0100, L500.4050, L101.9900, L501.6710 #### [facility] [address] [place], [address] CA,Total 9.6 mg/dL Normal 8.5-10.1 [facility] Comment on above: Performed By: #### L 100.0100, L500.4050, L101.9900, L501.6710 #### [facility] [address] [place], [address] Chloride [Moles/Vol] 102 mmol/L Normal 98-107 [facility] Comment on above: Performed By: #### L 100.0100, L500.4050, L101.9900, L501.6710 #### [facility] [address] [place], [address] CO2 [Moles/Vol] 26.0 mmol/L Normal 21.0-32.0 [facility] Comment on above: Performed By: #### L 100.0100, L500.4050, L101.9900, L501.6710 #### [facility] [address] [place], [address] Creatinine [Mass/Vol] 1.55 mg/dL High 0.55-1.02 [facility] Comment on above: Result Comment: The validity of the calculated GFR GFRAA in patients over 70 years has not been determined. Clinical correlation is essential. Performed By: #### L 100.0100, L500.4050, L101.9900, L501.6710 #### [facility] [address] [place], [address] ECRCL 34.61 ml/min Normal [facility] Comment on above: Performed By: #### L 100.0100, L500.4050, L101.9900, L501.6710 #### [facility] [address] [place], [address] EST GFR - AA 42 mL/min Low >60 [facility] Comment on above: Result Comment: Afri can [place] GFR Calc Performed By: #### L 100.0100, L500.4050, L101.9900, L501.6710 #### [facility] [address] [place], [address] GAP 7 Normal 5-15 [facility] Comment on above: Performed By: #### L 100.0100, L500.4050, L101.9900, L501.6710 #### [facility] [address] [place], [address] GFR/1.73 sq M.predicted among non-blacks MDRD (S/P/Bld) [Vol rate/Area] 34 mL/min/{1.73_m2} Low >60 [facility] Comment on above: Result Comment: Non- GFR Calc Performed By: #### L 100.0100, L500.4050, L101.9900, L501.6710 #### [facility] [address] [place], [address] Globulin (S) [Mass/Vol] 3.4 g/dL Normal 2.2-4.2 [facility] Comment on above: Performed By: #### L 100.0100, L500.4050, L101.9900, L501.6710 #### [facility] [address] [place], [address] Glucose [Mass/Vol] 126 mg/dL High 74-106 [facility] Comment on above: Result Comment: Fast ing Glucose result greater than or equal to 126 mg/dL suggests DIABETES MELLITUS per A.D.A. criteria. Performed By: #### L 100.0100, L500.4050, L101.9900, L501.6710 #### [facility] [address] [place], [address] Potassium [Moles/Vol] 4.5 mmol/L Normal 3.5-5.1 [facility] Comment on above: Performed By: #### L 100.0100, L500.4050, L101.9900, L501.6710 #### [facility] [address] [place], [address] Sodium [Moles/Vol] 135 mmol/L Low 136-145 [facility] Comment on above: Performed By: #### L 100.0100, L500.4050, L101.9900, L501.6710 #### [facility] [address] [place], [address] T PROT 6.7 g/dL Normal 6.4-8.2 [facility] Comment on above: Performed By: #### L 100.0100, L500.4050, L101.9900, L501.6710 #### [facility] [address] [place], [address] Urea nitrogen [Mass/Vol] 35 mg/dL High 7-18 [facility] Comment on above: Performed By: #### L 100.0100, L500.4050, L101.9900, L501.6710 #### [facility] [address] [place], [address] Emergency Department Summary on 02-24-2024 Emergency Department Summary [facility] Medical Records Department [address] [place] [address] Emergency Department Summary 02/24/24 MR#: [id number] Acct: [id number] Name: GEORGIA RO Rep #: [id number] : 1945 78 From: Alex Hendricks DO PCP: Dr. Eboni Katz MD Status:DEP ER Location: ED [facility] History of Present Illness Chief Complaint: GI Bleed [facility] Medical History GI bleed Dark stools Left [...] safe at home: Yes additional social history: [facility] SUN EXPOSURE: FREQUENTLY EXAM Physical Exam [...] of DVT (more content not included)... Normal [facility] L501.4020on 02-24-2024 TROPONIN-I HS 4 pg/mL Normal 3.0-54.0 [facility] Comment on above: Order Comment: 'TROP ' Serial specimen #1, #2 or #3: 1 Result Comment: Kaushik alexandra Note: New Test Units and Gender Specific Reference Ranges. For more information see Policy Stat Procedure [place] High Sensitivity Troponin (TNIH) and attachments. Performed By: #### L 100.0100, L500.4050, L101.9900, L501.6710 #### [facility] [address] [place], [address] Lipaseon 02-24-2024 Lipase [Catalytic activity/Vol] 36 U/L Normal 13-75 [facility] Comment on above: Order Comment: 'TROP ' Serial specimen #1, #2 or #3: 1 Result Comment: Kaushik alexandra note: LIPASE revised reference range effective 22. New Lipase methodology. Expected to produce lower values than the previous assay method. NEW Reference Range: 13 - 75 U/L Performed By: #### L 100.0100, L500.4050, L101.9900, L501.6710 #### [facility] [address] [place], [address] Partial Thromboplast Timeon 02-24-2024 aPTT Coag (Bld) [Time] 26.8 s Normal 24.1-36.2 [facility] Comment on above: Performed By: #### L 100.0100, L500.4050, L101.9900, L501.6710 #### [facility] [address] [place], [address] Prothrombin Time w/INRon INR Coag (PPP) [Relative time] 1.1 {INR} Normal [facility] Comment on above: Performed By: #### L 100.0100, L500.4050, L101.9900, L501.6710 #### [facility] [address] [place], [address] PT Coag (PPP) [Time] 14.0 s Normal 11.7-14.9 [facility] Comment on above: Performed By: #### L 100.0100, L500.4050, L101.9900, L501.6710 #### [facility] [address] [place], [address] Urinalysis, Completeon 02-23 BACTERIA RARE Normal None Seen [facility] Comment on above: Order Comment: CLEAN CATCH Performed By: #### L 100.0100, L500.4050, L101.9900, L501.6710 #### [facility] [address] [place], [address] CAST,HYALINE 0-5 SEEN Normal 0-5 [facility] Comment on above: Order Comment: CLEAN CATCH Performed By: #### L 100.0100, L500.4050, L101.9900, L501.6710 #### [facility] [address] [place], [address] EPI,SQUAMOUS 0-5 SEEN Normal 5-10 [facility] Comment on above: Order Comment: CLEAN CATCH Performed By: #### L 100.0100, L500.4050, L101.9900, L501.6710 #### [facility] [address] [place], [address] Mucus Ql (Urine sed) 0 SEEN Normal [facility] Comment on above: Order Comment: CLEAN CATCH Performed By: #### L 100.0100, L500.4050, L101.9900, L501.6710 #### [facility] [address] [place], [address] RBC 0 SEEN Normal 0-5 [facility] Comment on above: Order Comment: CLEAN CATCH Performed By: #### L 100.0100, L500.4050, L101.9900, L501.6710 #### [facility] [address] [place], [address] WBC 0 SEEN Normal 0-5 [facility] Comment on above: Order Comment: CLEAN CATCH Performed By: #### L 100.0100, L500.4050, L101.9900, L501.6710 #### [facility] [address] [place], [address] Stool Occult Blood iFOBon STOB Normal Reference Ran ge = Negative Immunochemical Fecal Occult Blood (iFOBT) method. Hemoccult Stl Ql [place] Limitation: Menstrual bleeding, constipation bleeding, bleeding hemorrhoids, and urinary bleeding conditions may interfere with test. Occult Blood A Positive A OCCULT BLOOD POSITIVE Normal [facility] Comment on above: Performed By: #### L 100.0100, L500.4050, L101.9900, L501.6710 #### [facility] [address] [place], [address] CBC W/Diff, Automatedon 11-0 Absolute Lymph 0.66 X10 3/uL Low 0.83-4.51 [facility] Comment on above: Performed By: #### L 100.0100, L500.4050, L101.9900, L501.6710 #### [facility] [address] [place], [address] Absolute Neut 6.0 X10 3/uL Normal 2.0-7.7 [facility] Comment on above: Performed By: #### L 100.0100, L500.4050, L101.9900, L501.6710 #### [facility] [facility] [address] [place], [address] Basophils/100 WBC (Bld) 0.5 % Normal 0-1 [facility] Comment on above: Performed By: #### L 100.0100, L500.4050, L101.9900, L501.6710 #### [facility] [address] [place], [address] Eosinophils/100 WBC (Bld) 3.3 % Normal 0-5 [facility] Comment on above: Performed By: #### L 100.0100, L500.4050, L101.9900, L501.6710 #### [facility] [address] [place], [address] Erythrocyte distribution width (RBC) [Ratio] 14.2 % Normal 11.6-14.6 [facility] Comment on above: Performed By: #### L 100.0100, L500.4050, L101.9900, L501.6710 #### [facility] [address] [place], [address] Hematocrit (Bld) [Volume fraction] 42.0 % Normal 37-47 [facility] Comment on above: Performed By: #### L 100.0100, L500.4050, L101.9900, L501.6710 #### [facility] [address] [place], [address] Hemoglobin (Bld) [Mass/Vol] 13.3 g/dL Normal 12.0-15.0 [facility] Comment on above: Performed By: #### L 100.0100, L500.4050, L101.9900, L501.6710 #### [facility] [address] [place], [address] IG% 0.800 Normal 0.0-0.9 [facility] Comment on above: Result Comment: IG% - Immature Granulocytes (promyelocytes, myelocytes and metamyelocytes) > 1% indicates that a LEFT SHIFT is Present. Performed By: #### L 100.0100, L500.4050, L101.9900, L501.6710 #### [facility] [address] [place], [address] Lymphocytes/100 WBC (Bld) 8.6 % Low 19-41 [facility] Comment on above: Performed By: #### L 100.0100, L500.4050, L101.9900, L501.6710 #### [facility] [address] [place], [address] MCH (RBC) [Entitic mass] 30.0 pg Normal 27.0-32.0 [facility] Comment on above: Performed By: #### L 100.0100, L500.4050, L101.9900, L501.6710 #### [facility] [address] [place], [address] MCHC (RBC) [Mass/Vol] 31.7 g/dL Low 32-36 [facility] Comment on above: Performed By: #### L 100.0100, L500.4050, L101.9900, L501.6710 #### [facility] [address] [place], [address] MCV (RBC) [Entitic vol] 94.6 fL Normal 81-99 [facility] Comment on above: Performed By: #### L 100.0100, L500.4050, L101.9900, L501.6710 #### [facility] [address] [place], [address] Monocytes/100 WBC (Bld) 7.7 % Normal 0-10 [facility] Comment on above: Performed By: #### L 100.0100, L500.4050, L101.9900, L501.6710 #### [facility] [address] [place], [address] Neutrophils/100 WBC (Bld) 79.1 % High 47-70 [facility] Comment on above: Performed By: #### L 100.0100, L500.4050, L101.9900, L501.6710 #### [facility] [address] [place], [address] Nucleated RBC (Bld) [#/Vol] 0 10*3/uL Normal 0-5 [facility] Comment on above: Performed By: #### L 100.0100, L500.4050, L101.9900, L501.6710 #### [facility] [address] [place], [address] Platelet mean volume (Bld) [Entitic vol] 11.5 fL Normal 6.2-12.0 [facility] Comment on above: Performed By: #### L 100.0100, L500.4050, L101.9900, L501.6710 #### [facility] [address] [place], [address] Platelets (Bld) [#/Vol] 164 10*3/uL Normal 150-450 [facility] Comment on above: Performed By: #### L 100.0100, L500.4050, L101.9900, L501.6710 #### [facility] [address] [place], [address] RBC (Bld) [#/Vol] 4.44 10*6/uL Normal 4.2-5.4 [facility] Comment on above: Performed By: #### L 100.0100, L500.4050, L101.9900, L501.6710 #### [facility] [address] [place], [address] RDW SD 49.4 fl High 35.1-43.9 [facility] Comment on above: Performed By: #### L 100.0100, L500.4050, L101.9900, L501.6710 #### [facility] [address] [place], [address] WBC (Bld) [#/Vol] 7.6 10*3/uL Normal 4.4-11.0 [facility] Comment on above: Performed By: #### L 100.0100, L500.4050, L101.9900, L501.6710 #### [facility] [address] [place], [address] Comprehensive Metabolic Prof ilon 02-20-2024 Albumin [Mass/Vol] 3.3 g/dL Normal 3.2-5.0 [facility] Comment on above: Performed By: #### L 100.0100, L500.4050, L101.9900, L501.6710 #### [facility] [address] [place], [address] Albumin/Globulin [Mass ratio] 0.9 {ratio} Normal 0.9-2.4 [facility] Comment on above: Performed By: #### L 100.0100, L500.4050, L101.9900, L501.6710 #### [facility] [address] [place], [address] ALK P 104 U/L Normal 45-117 [facility] Comment on above: Performed By: #### L 100.0100, L500.4050, L101.9900, L501.6710 #### [facility] [address] [place], [address] ALT [Catalytic activity/Vol] 49 U/L Normal 13-56 [facility] Comment on above: Performed By: #### L 100.0100, L500.4050, L101.9900, L501.6710 #### [facility] [address] [place], [address] AST [Catalytic activity/Vol] 35 U/L Normal 15-37 [facility] Comment on above: Performed By: #### L 100.0100, L500.4050, L101.9900, L501.6710 #### [facility] [address] [place], [address] Bilirubin [Mass/Vol] 0.90 mg/dL Normal 0.20-1.00 [facility] Comment on above: Result Comment: For patients on eltrombopag therapy, use of Dimension [place] TBIL is not recommended. Performed By: #### L 100.0100, L500.4050, L101.9900, L501.6710 #### [facility] [address] [place], [address] BUN/CRE 18.4 RATIO Normal 10-20 [facility] Comment on above: Performed By: #### L 100.0100, L500.4050, L101.9900, L501.6710 #### [facility] [address] [place], [address] CA,Total 9.5 mg/dL Normal 8.5-10.1 [facility] Comment on above: Performed By: #### L 100.0100, L500.4050, L101.9900, L501.6710 #### [facility] [address] [place], [address] Chloride [Moles/Vol] 102 mmol/L Normal 98-107 [facility] Comment on above: Performed By: #### L 100.0100, L500.4050, L101.9900, L501.6710 #### [facility] [address] [place], [address] CO2 [Moles/Vol] 29.0 mmol/L Normal 21.0-32.0 [facility] Comment on above: Performed By: #### L 100.0100, L500.4050, L101.9900, L501.6710 #### [facility] [address] [place], [address] Creatinine [Mass/Vol] 1.03 mg/dL High 0.55-1.02 [facility] Comment on above: Result Comment: The validity of the calculated GFR GFRAA in patients over 70 years has not been determined. Clinical correlation is essential. Performed By: #### L 100.0100, L500.4050, L101.9900, L501.6710 #### [facility] [address] [place], [address] EST GFR - AA 67 mL/min Normal >60 [facility] Comment on above: Result Comment: Afri can Mal[place] GFR Calc Performed By: #### L 100.0100, L500.4050, L101.9900, L501.6710 #### [facility] [address] [place], [address] GAP 5 Normal 5-15 [facility] Comment on above: Performed By: #### L 100.0100, L500.4050, L101.9900, L501.6710 #### [facility] [address] [place], [address] GFR/1.73 sq M.predicted among non-blacks MDRD (S/P/Bld) [Vol rate/Area] 55 mL/min/{1.73_m2} Low >60 [facility] Comment on above: Result Comment: Non- GFR Calc Performed By: #### L 100.0100, L500.4050, L101.9900, L501.6710 #### [facility] [address] [place], [address] Globulin (S) [Mass/Vol] 3.5 g/dL Normal 2.2-4.2 [facility] Comment on above: Performed By: #### L 100.0100, L500.4050, L101.9900, L501.6710 #### [facility] [address] [place], [address] Glucose [Mass/Vol] 126 mg/dL High 74-106 [facility] Comment on above: Result Comment: Fast ing Glucose result greater than or equal to 126 mg/dL suggests DIABETES MELLITUS per A.D.A. criteria. Performed By: #### L 100.0100, L500.4050, L101.9900, L501.6710 #### [facility] [address] [place], [address] Potassium [Moles/Vol] 4.4 mmol/L Normal 3.5-5.1 [facility] Comment on above: Performed By: #### L 100.0100, L500.4050, L101.9900, L501.6710 #### [facility] [address] [place], [address] Sodium [Moles/Vol] 135 mmol/L Low 136-145 [facility] Comment on above: Performed By: #### L 100.0100, L500.4050, L101.9900, L501.6710 #### [facility] [address] [place], [address] T PROT 6.8 g/dL Normal 6.4-8.2 [facility] Comment on above: Performed By: #### L 100.0100, L500.4050, L101.9900, L501.6710 #### [facility] [address] [place], [address] Urea nitrogen [Mass/Vol] 19 mg/dL High 7-18 [facility] Comment on above: Performed By: #### L 100.0100, L500.4050, L101.9900, L501.6710 #### [facility] [address] [place], [address] CBC W/Diff, Automatedon 09-04 22-2023 Absolute Lymph 1.99 X10 3/uL Normal 0.83-4.51 [facility] Comment on above: Performed By: #### L 100.0100, L500.4050, L101.9900, L501.6710 #### [facility] [address] [place], [address] Absolute Neut 3.3 X10 3/uL Normal 2.0-7.7 [facility] Comment on above: Performed By: #### L 100.0100, L500.4050, L101.9900, L501.6710 #### [facility] [address] [place], [address] Basophils/100 WBC (Bld) 0.8 % Normal 0-1 [facility] Comment on above: Performed By: #### L 100.0100, L500.4050, L101.9900, L501.6710 #### [facility] [address] [place], [address] Eosinophils/100 WBC (Bld) 1.5 % Normal 0-5 [facility] Comment on above: Performed By: #### L 100.0100, L500.4050, L101.9900, L501.6710 #### [facility] [address] [place], [address] Erythrocyte distribution width (RBC) [Ratio] 13.0 % Normal 11.6-14.6 [facility] Comment on above: Performed By: #### L 100.0100, L500.4050, L101.9900, L501.6710 #### [facility] [address] [place], [address] Hematocrit (Bld) [Volume fraction] 41.3 % Normal 37-47 [facility] Comment on above: Performed By: #### L 100.0100, L500.4050, L101.9900, L501.6710 #### [facility] [address] [place], [address] Hemoglobin (Bld) [Mass/Vol] 14.1 g/dL Normal 12.0-15.0 [facility] Comment on above: Performed By: #### L 100.0100, L500.4050, L101.9900, L501.6710 #### [facility] [address] [place], [address] IG% 0.500 Normal 0.0-0.9 [facility] Comment on above: Result Comment: IG% - Immature Granulocytes (promyelocytes, myelocytes and metamyelocytes) > 1% indicates that a LEFT SHIFT is Present. Performed By: #### L 100.0100, L500.4050, L101.9900, L501.6710 #### [facility] [address] [place], [address] Lymphocytes/100 WBC (Bld) 32.8 % Normal 19-41 [facility] Comment on above: Performed By: #### L 100.0100, L500.4050, L101.9900, L501.6710 #### [facility] [address] [place], [address] MCH (RBC) [Entitic mass] 30.3 pg Normal 27.0-32.0 [facility] Comment on above: Performed By: #### L 100.0100, L500.4050, L101.9900, L501.6710 #### [facility] [address] [place], [address] MCHC (RBC) [Mass/Vol] 34.1 g/dL Normal 32-36 [facility] Comment on above: Performed By: #### L 100.0100, L500.4050, L101.9900, L501.6710 #### [facility] [address] [place], [address] MCV (RBC) [Entitic vol] 88.6 fL Normal 81-99 [facility] Comment on above: Performed By: #### L 100.0100, L500.4050, L101.9900, L501.6710 #### [facility] [address] [place], [address] Monocytes/100 WBC (Bld) 9.6 % Normal 0-10 [facility] Comment on above: Performed By: #### L 100.0100, L500.4050, L101.9900, L501.6710 #### [facility] [address] [place], [address] Neutrophils/100 WBC (Bld) 54.8 % Normal 47-70 [facility] Comment on above: Performed By: #### L 100.0100, L500.4050, L101.9900, L501.6710 #### [facility] [address] [place], [address] Nucleated RBC (Bld) [#/Vol] 0 10*3/uL Normal 0-5 [facility] Comment on above: Performed By: #### L 100.0100, L500.4050, L101.9900, L501.6710 #### [facility] [address] [place], [address] Platelet mean volume (Bld) [Entitic vol] 10.3 fL Normal 6.2-12.0 [facility] Comment on above: Performed By: #### L 100.0100, L500.4050, L101.9900, L501.6710 #### [facility] [address] [place], [address] Platelets (Bld) [#/Vol] 205 10*3/uL Normal 150-450 [facility] Comment on above: Performed By: #### L 100.0100, L500.4050, L101.9900, L501.6710 #### [facility] [address] [place], [address] RBC (Bld) [#/Vol] 4.66 10*6/uL Normal 4.2-5.4 [facility] Comment on above: Performed By: #### L 100.0100, L500.4050, L101.9900, L501.6710 #### [facility] [address] [place], [address] RDW SD 42.3 fl Normal 35.1-43.9 [facility] Comment on above: Performed By: #### L 100.0100, L500.4050, L101.9900, L501.6710 #### [facility] [address] [place], [address] WBC (Bld) [#/Vol] 6.1 10*3/uL Normal 4.4-11.0 [facility] Comment on above: Performed By: #### L 100.0100, L500.4050, L101.9900, L501.6710 #### [facility] [address] [place], [address] Comprehensive Metabolic Prof [facility] 01-01-2024 Albumin [Mass/Vol] 3.6 g/dL Normal 3.2-5.0 [facility] Comment on above: Order Comment: 1 Performed By: #### L 100.0100, L500.4050, L101.9900, L501.6710 #### [facility] [address] [place], [address] Albumin/Globulin [Mass ratio] 1.1 {ratio} Normal 0.9-2.4 [facility] Comment on above: Order Comment: 1 Performed By: #### L 100.0100, L500.4050, L101.9900, L501.6710 #### [facility] [address] [place], [address] ALK P 101 U/L Normal 45-117 [facility] Comment on above: Order Comment: 1 Performed By: #### L 100.0100, L500.4050, L101.9900, L501.6710 #### [facility] [address] [place], [address] ALT [Catalytic activity/Vol] 19 U/L Normal 13-56 [facility] Comment on above: Order Comment: 1 Performed By: #### L 100.0100, L500.4050, L101.9900, L501.6710 #### [facility] [address] [place], [address] AST [Catalytic activity/Vol] 21 U/L Normal 15-37 [facility] Comment on above: Order Comment: 1 Performed By: #### L 100.0100, L500.4050, L101.9900, L501.6710 #### [facility] [address] [place], [address] Bilirubin [Mass/Vol] 0.80 mg/dL Normal 0.20-1.00 [facility] Comment on above: Order Comment: 1 Result Comment: For patients on eltrombopag therapy, use of Dimension [place] TBIL is not recommended. Performed By: #### L 100.0100, L500.4050, L101.9900, L501.6710 #### [facility] [address] [place], [address] BUN/CRE 16.2 RATIO Normal 10-20 [facility] Comment on above: Order Comment: 1 Performed By: #### L 100.0100, L500.4050, L101.9900, L501.6710 #### [facility] [address] [place], [address] CA,Total 9.8 mg/dL Normal 8.5-10.1 [facility] Comment on above: Order Comment: 1 Performed By: #### L 100.0100, L500.4050, L101.9900, L501.6710 #### [facility] [address] [place], [address] Chloride [Moles/Vol] 104 mmol/L Normal 98-107 [facility] Comment on above: Order Comment: 1 Performed By: #### L 100.0100, L500.4050, L101.9900, L501.6710 #### [facility] [address] [place], [address] CO2 [Moles/Vol] 30.0 mmol/L Normal 21.0-32.0 [facility] Comment on above: Order Comment: 1 Performed By: #### L 100.0100, L500.4050, L101.9900, L501.6710 #### [facility] [address] [place], [address] Creatinine [Mass/Vol] 0.86 mg/dL Normal 0.55-1.02 [facility] Comment on above: Order Comment: 1 Result Comment: The validity of the calculated GFR GFRAA in patients over 70 years has not been determined. Clinical correlation is essential. Performed By: #### L 100.0100, L500.4050, L101.9900, L501.6710 #### [facility] [address] [place], [address] ECRCL 63.74 ml/min Normal [facility] Comment on above: Order Comment: 1 Performed By: #### L 100.0100, L500.4050, L101.9900, L501.6710 #### [facility] [address] [place], [address] EST GFR - AA 82 mL/min Normal >60 [facility] Comment on above: Order Comment: 1 Result Comment: Afri can [place] GFR Calc Performed By: #### L 100.0100, L500.4050, L101.9900, L501.6710 #### [facility] [address] [place], [address] GAP 5 Normal 5-15 [facility] Comment on above: Order Comment: 1 Performed By: #### L 100.0100, L500.4050, L101.9900, L501.6710 #### [facility] [address] [place], [address] GFR/1.73 sq M.predicted among non-blacks MDRD (S/P/Bld) [Vol rate/Area] 68 mL/min/{1.73_m2} Normal >60 [facility] Comment on above: Order Comment: 1 Result Comment: Non- GFR Calc Performed By: #### L 100.0100, L500.4050, L101.9900, L501.6710 #### [facility] [address] [place], [address] Globulin (S) [Mass/Vol] 3.4 g/dL Normal 2.2-4.2 [facility] Comment on above: Order Comment: 1 Performed By: #### L 100.0100, L500.4050, L101.9900, L501.6710 #### [facility] [address] [place], [address] Glucose [Mass/Vol] 105 mg/dL Normal 74-106 [facility] Comment on above: Order Comment: 1 Result Comment: Fast ing Glucose result from 100 to 125 mg/dL suggests IMPAIRED HOMEOSTASIS per A.D.A. criteria. Performed By: #### L 100.0100, L500.4050, L101.9900, L501.6710 #### [facility] [address] [place], [address] Potassium [Moles/Vol] 3.8 mmol/L Normal 3.5-5.1 [facility] Comment on above: Order Comment: 1 Performed By: #### L 100.0100, L500.4050, L101.9900, L501.6710 #### [facility] [address] [place], [address] Sodium [Moles/Vol] 139 mmol/L Normal 136-145 [facility] Comment on above: Order Comment: 1 Performed By: #### L 100.0100, L500.4050, L101.9900, L501.6710 #### [facility] [address] [place], [address] T PROT 7.0 g/dL Normal 6.4-8.2 [facility] Comment on above: Order Comment: 1 Performed By: #### L 100.0100, L500.4050, L101.9900, L501.6710 #### [facility] [address] [place], [address] Urea nitrogen [Mass/Vol] 14 mg/dL Normal 7-18 [facility] Comment on above: Order Comment: 1 Performed By: #### L 100.0100, L500.4050, L101.9900, L501.6710 #### [facility] [address] [place], [address] LDHon 01-01-2024 LDH 170 U/L Normal 84-246 [facility] Comment on above: Order Comment: 1 Performed By: #### L 100.0100, L500.4050, L101.9900, L501.6710 #### [facility] [address] [place], [address] Oncology Visit Reporton 12-20 Oncology Visit Report [facility] [address] [place] [address] OFFICE VISIT Date of Service: 01/01/24 1120 MR#: [id number] Acct: [id number] Name: GEOR[place]IA RO Rep #: [id number] : 1945 From: Konstantin Saha MD Age/Sex: 78/F Location: [facility] [place] Status: Signed HPI Subjective Date of Service [...] other quantitatively significant hypermetabolic abnormalities are encountered. [facility] Medical History Left renal mass Abnormal CT [...] safe at home: Yes additional social history: [facility] SUN EXPOSURE: FREQUENTLY ROS Constitutional Constitutional: [...] a few years earlier, self medicates with mgat-rey-obyaivz. Neurologic Neurologic: Reports systems reviewed and no addt'l complaints, except as documented; Denies focal weakness or paresthesias Psychiatric Psychiatric: Reports (more content not included)... Normal [facility] Absolute lymphocyte countOrd ered By: Eboni Katz on 05-14-2023 Lymphocytes Auto (Unsp spec) [#/Vol] 2.11 10*3/uL 0.83-4.51 [facility] Automated lymphocyte count a s percentage of total leukocytesOrdered By: Eboni Katz on 05-14-2023 Lymphocytes/100 WBC Auto (Unsp spec) 33.1 % 19-41 [facility] Basophil percentageOrdered B y: Eboni Katz on 05-14-2023 Basophils/100 WBC (Bld) 1.1 % 0-1 [facility] Bilirubin [Mass/Vol] 0.70 mg/dL 0.20-1.00 [facility] Comment on above: For patients on eltr ombopag therapy, use of Dimension [place] TBIL is not recommended. Chloride [Moles/Vol] 105 mmol/L 98-107 [facility] Cholesterol [Mass/Vol] 189 mg/dL <200 [facility] Comment on above: <200 mg/dL Desirable 200-240 mg/dL Borderline >240 mg/dL High Risk Eosinophils/100 WBC (Bld) 1.7 % 0-5 [facility] Glucose [Mass/Vol] 106 mg/dL 74-106 [facility] Comment on above: Fasting Glucose resu lt from 100 to 125 mg/dL suggests IMPAIRED HOMEOSTASIS per A.D.A. criteria. Hemoglobin (Bld) [Mass/Vol] 14.0 g/dL 12.0-15.0 [facility] Monocytes/100 WBC (Bld) 9.1 % 0-10 [facility] Neutrophils (Bld) [#/Vol] 3.5 10*3/uL 2.0-7.7 [facility] Neutrophils/100 WBC (Bld) 54.5 % 47-70 [facility] Potassium [Moles/Vol] 3.9 mmol/L 3.5-5.1 [facility] Protein [Mass/Vol] 7.0 g/dL 6.4-8.2 [facility] Sodium [Moles/Vol] 137 mmol/L 136-145 [facility] Triglyceride [Mass/Vol] 140 mg/dL <199 [facility] Comment on above: The drugs N-Acetylcy steine and Metamizole may falsely depress this assay.Serum Triglycerides Reference Interval Normal <150 mg/dL Borderline high 150 - 199 mg/dL High 200 - 499 mg/dL Very High > or = 500 mg/dL WBC (Bld) [#/Vol] 6.4 10*3/uL 4.4-11.0 [facility] Determination of erythrocyte mean corpuscular volume (MCV)Ordered By: Eboni Katz on 05-14-2023 MCV (RBC) [Entitic vol] 90.8 fL 81-99 [facility] Erythrocyte distribution wid th ratioOrdered By: [facility] Alejandrocarola on 05-14-2023 Erythrocyte distribution width (RBC) [Ratio] 13.1 % 11.6-14.6 [facility] Erythrocyte distribution wid th standard deviationOrdered By: [facility]tha Allencarola on 05-14-2023 Erythrocyte distribution width (RBC) [Entitic vol] 43.8 fL 35.1-43.9 [facility] Hematocrit Auto (Bld) [Volum e fraction]Ordered By: [place]bo[place]aretha Allencarola on 05-14-2023 Hematocrit (Bld) [Volume fraction] 43.5 % 37-47 [facility] High density lipoprotein (HD L) measurementOrdered By: Eboni Katz on 05-14-2023 Cholesterol in HDL (Body fld) [Mass/Vol] 44 mg/dL >40 [facility] Comment on above: The drugs N-Acetylcy steine and Metamizole may falsely depress this assay. Reference Range HDL <40 mg/dL Low HDL Cholesterol HDL >or= 60 mg/dL High HDL Cholesterol Immature granulocytes/100 WB C Auto (Bld)Ordered By: [place]aretha Allencarola on 05-14-2023 Immature granulocytes/100 WBC (Bld) 0.500 % 0.0-0.9 [facility] Comment on above: IG% - Immature Granu locytes (promyelocytes, myelocytes and metamyelocytes) > 1% indicates that a LEFT SHIFT is Present. Laboratory - Chemistry and C hemistry - challengeOrdered By: Eboni Katz on 05-14-2023 Albumin/Globulin [Mass ratio] 0.9 {ratio} 0.9-2.4 [facility] ALP [Catalytic activity/Vol] 80 U/L 45-117 [facility] ALT [Catalytic activity/Vol] 22 U/L 13-56 [facility] CO2 [Moles/Vol] 27.0 mmol/L 21.0-32.0 [facility] Globulin (S) [Mass/Vol] 3.6 g/dL 2.2-4.2 [facility] Urea nitrogen/Creatinine [Mass ratio] 21.7 mg/mg 10-20 [facility] Laboratory - Hematology and Cell countsOrdered By: Eboni Katz on 05-14-2023 MCH (RBC) [Entitic mass] 29.2 pg 27.0-32.0 [facility] MCHC (RBC) [Mass/Vol] 32.2 g/dL 32-36 [facility] Nucleated RBC/100 WBC (Bld) [Ratio] 0 % 0-5 [facility] Platelets (Bld) [#/Vol] 250 10*3/uL 150-450 [facility] Low density lipoprotein (LDL ) cholesterol measurementOrdered By: Eboni Katz on 05-14-2023 Cholesterol in LDL (Body fld) [Moles/Vol] 117 mg/dL 0-130 [facility] No Panel InformationOrdered By: Eboni Katz on 05-14-2023 Estimated GFR (MDRD) Amer 92 mL/min >60 [facility] Comment on above: GFR Calc Estimated GFR (MDRD) Non-Af Amer 76 mL/min >60 [facility] Comment on above: Non- GFR Calc Platelet mean volume Rboert-Ec ker (Bld) [Entitic vol]Ordered By: Eboni Katz on 05-14-2023 Platelet mean volume (Bld) [Entitic vol] 11.0 fL 6.2-12.0 [facility] RBC Auto (Bld) [#/Vol]Ordere d By: Eboni Katz on 05-14-2023 RBC (Bld) [#/Vol] 4.79 10*6/uL 4.2-5.4 [facility] Serum or plasma calcium jose l urement (mass/volume)Ordered By: Eboni Katz on 05-14-2023 Calcium [Mass/Vol] 9.4 mg/dL 8.5-10.1 [facility] Serum or plasma creatinine m easurement (mass/volume)Ordered By: Eboni Katz on 05-14-2023 Creatinine [Mass/Vol] 0.78 mg/dL 0.55-1.02 [facility] Comment on above: The validity of the calculated GFR & GFRAA in patients over 70 years has not been determined. Clinical correlation is essential. Serum or plasma urea nitroge n measurement (mass/volume)Ordered By: Eboni Katz on 05-14-2023 Urea nitrogen [Mass/Vol] 17 mg/dL 7-18 [facility] Thin prep Papanicolaou smear with manual screeningOrdered By: Eboni Katz on 05-14-2023 Thin prep Papanicolaou smear with manual screening 3.4 g/dL 3.2-5.0 [facility] Thin prep Papanicolaou smear with manual screening 20 U/L 15-37 [facility] Thin prep Papanicolaou smear with manual screening 5 5-15 [facility] Very low density lipoprotein (VLDL) cholesterol measurementOrdered By: Eboni Katz on 05-14-2023 Cholesterol in VLDL Calc [Moles/Vol] 28 mg/dL 5-40 [facility] Whole blood hemoglobin A1c/t otal hemoglobin ratio (mass fraction)Ordered By: Eboni Katz on 05-14-2023 HbA1c (Bld) [Mass fraction] 6.0 % 3.8-5.6 [facility] Comment on above: Normal < 5.7 % Predi abetic 5.7 - 6.4 % Diabetic >or= 6.5 % Please note range changes. Laboratory - Hematology and Cell countson 02-10-2023 HbA1c (Bld) [Mass fraction] 6.2 % 4.2-6.3 [facility] Basophil percentageOrdered B y: Eboni Katz on 10-07-2022 Chloride [Moles/Vol] 103 mmol/L 98-107 [facility] Glucose [Mass/Vol] 148 mg/dL 74-106 [facility] Comment on above: Fasting Glucose resu lt greater than or equal to 126 mg/dL suggests DIABETES MELLITUS per A.D.A. criteria. Potassium [Moles/Vol] 3.6 mmol/L 3.5-5.1 [facility] Sodium [Moles/Vol] 138 mmol/L 136-145 [facility] Laboratory - Chemistry and C hemistry - challengeOrdered By: Eboni Katz on 10-07-2022 CO2 [Moles/Vol] 29.0 mmol/L 21.0-32.0 [facility] Urea nitrogen/Creatinine [Mass ratio] 23.1 mg/mg 10-20 [facility] No Panel InformationOrdered By: Eboni Katz on 10-07-2022 Estimated GFR (MDRD) Amer 78 mL/min >60 [facility] Comment on above: GFR Calc Estimated GFR (MDRD) Non-Af Amer 64 mL/min >60 [facility] Comment on above: Non- GFR Calc Serum or plasma calcium jose l urement (mass/volume)Ordered By: Eboni Katz on 10-07-2022 Calcium [Mass/Vol] 9.5 mg/dL 8.5-10.1 [facility] Serum or plasma creatinine m easurement (mass/volume)Ordered By: Eboni Katz on 10-07-2022 Creatinine [Mass/Vol] 0.91 mg/dL 0.55-1.02 [facility] Comment on above: The validity of the calculated GFR & GFRAA in patients over 70 years has not been determined. Clinical correlation is essential. Serum or plasma urea nitroge n measurement (mass/volume)Ordered By: Ebnoi Katz on 10-07-2022 Urea nitrogen [Mass/Vol] 21 mg/dL 7-18 [facility] Thin prep Papanicolaou smear with manual screeningOrdered By: Eboni Katz on 10-07-2022 Thin prep Papanicolaou smear with manual screening 6 5-15 [facility] Whole blood hemoglobin A1c/t otal hemoglobin ratio (mass fraction)Ordered By: Eboni Katz on 10-07-2022 HbA1c (Bld) [Mass fraction] 6.1 % 3.8-5.6 [facility] Comment on above: Normal < 5.7 % Predi abetic 5.7 - 6.4 % Diabetic >or= 6.5 % Please note range changes. Laboratory - Hematology and Cell countson 07-05-2022 HbA1c (Bld) [Mass fraction] 6.1 % 4.2-6.3 [facility] Absolute lymphocyte counton 09-14-2021 Lymphocytes Auto (Unsp spec) [#/Vol] 2.11 10*3/uL 0.83-4.51 [facility] Work Phone: Basophil percentageon 2021 Basophils/100 WBC (Bld) 0.8 % 0-1 [facility] Work Phone: Eosinophils/100 WBC (Bld) 2.1 % 0-5 [facility] Work Phone: Neutrophils (Bld) [#/Vol] 3.3 10*3/uL 2.0-7.7 [facility] Work Phone: Neutrophils/100 WBC (Bld) 52.9 % 47-70 [facility] Work Phone: WBC (Bld) [#/Vol] 6.3 10*3/uL 4.4-11.[facility]: [phone] Blood erythrocytes count (nu mber/volume)on 09-14-2021 RBC (Bld) [#/Vol] 4.72 10*6/uL 4.2-5.4 [facility] Work Phone: [phone] Blood hemoglobin measurement (mass/volume)on 09-14-2021 Hemoglobin (Bld) [Mass/Vol] 14.1 g/dL 12.0-15.0 [facility] Work Phone: Blood lymphocytes/100 leukoc yteson 09-14-2021 Lymphocytes/100 WBC (Bld) 33.5 % 19-41 [facility] Work Phone: Blood monocytes/100 leukocyt eson 09-14-2021 Monocytes/100 WBC (Bld) 9.7 % 0-10 [facility] Work Phone: Blood platelet mean volumeon 09-14-2021 Platelet mean volume (Bld) [Entitic vol] 10.8 fL 6.2-12.0 [facility] Work Phone: Determination of erythrocyte mean corpuscular volume (MCV)on 09-14-2021 MCV (RBC) [Entitic vol] 86.9 fL 81-99 [facility] Work Phone: Hematocrit Auto (Bld) [Volum e fraction]on 09-14-2021 Hematocrit (Bld) [Volume fraction] 41.0 % 37-47 [facility] Work Phone: Laboratory - Hematology and Cell countson 09-14-2021 Erythrocyte distribution width (RBC) [Entitic vol] 42.5 fL 35.1-43.9 [facility] Work Phone: Erythrocyte distribution width (RBC) [Ratio] 13.3 % 11.6-14.6 [facility] Work Phone: [phone] Immature granulocytes/100 WBC (Bld) 1.000 % 0.0-0.9 [facility] Work Phone: Comment on above: IG% - Immature Granu locytes (promyelocytes, myelocytes and metamyelocytes) > 1% indicates that a LEFT SHIFT is Present. MCH (RBC) [Entitic mass] 29.9 pg 27.0-32.0 [facility] Work Phone: Nucleated RBC/100 WBC (Bld) [Ratio] 0 % 0-5 [facility] Work Phone: MCHC Auto (RBC) [Mass/Vol]on 09-14-2021 MCHC (RBC) [Mass/Vol] 34.4 g/dL 32-36 [facility] Work Phone: Platelets bldon 09-14-2021 Platelets (Bld) [#/Vol] 203 10*3/uL 150-450 [facility] Work Phone: Basophil percentageon 2021 Chloride [Moles/Vol] 102 mmol/L 98-107 [facility] Work Phone: Glucose [Mass/Vol] 123 mg/dL 74-106 [facility] Work Phone: Comment on above: Fasting Glucose resu lt from 100 to 125 mg/dL suggests IMPAIRED HOMEOSTASIS per A.D.A. criteria. Potassium [Moles/Vol] 3.5 mmol/L 3.5-5.1 [facility] Work Phone: Sodium [Moles/Vol] 138 mmol/L 136-145 [facility] Work Phone: Laboratory - Chemistry and C hemistry - challengeon 09-03-2021 CO2 [Moles/Vol] 31.0 mmol/L 21.0-32.0 [facility] Work Phone: Natriuretic peptide B (Bld) [Mass/Vol] 26.0 pg/mL 0-100 [facility] Work Phone: Urea nitrogen/Creatinine [Mass ratio] 19.6 mg/mg 10-20 [facility] Work Phone: No Panel Informationon 09-03 Estimated GFR (MDRD) Amer 88 mL/min >60 [facility] Work Phone: Comment on above: GFR Calc Estimated GFR (MDRD) Non-Af Amer 73 mL/min >60 [facility] Work Phone: Comment on above: Non- GFR Calc Serum or plasma calcium jose l urement (mass/volume)on 09-03-2021 Calcium [Mass/Vol] 9.4 mg/dL 8.5-10.1 [facility] Work Phone: Serum or plasma creatinine m easurement (mass/volume)on 09-03-2021 Creatinine [Mass/Vol] 0.82 mg/dL 0.55-1.02 [facility] Work Phone: Comment on above: The validity of the calculated GFR & GFRAA in patients over 70 years has not been determined. Clinical correlation is essential. Serum or plasma urea nitroge n measurement (mass/volume)on 09-03-2021 Urea nitrogen [Mass/Vol] 16 mg/dL 7-18 [facility] Work Phone: Thin prep Papanicolaou smear with manual screeningon 09-03-2021 Thin prep Papanicolaou smear with manual screening 5 5-15 [facility] Work Phone: OBSOLETEon 03-10-2019 OBSOLETE Refill (INTMWS) [place] RO ([id number]) 1945 F Date Time Provider Department 03/10/19 [...] contact current PCP for refills. Kameron Bernardo APRN.CNP Allergies As of Date: 03/10/2019 [...] Status:Closed by SETH CHOUDHARY CMA on 03/15/19 [facility] OBSOLETEon 11-02-2018 OBSOLETE Refill (INTMWS) [place] RO ([id number]) 1945 F Date Time Provider Department 11/02/18 [facility] During your visit today, we recorded [...] applicable Please advise. Thank you. Georgette Bernardo APRN.RN CORRECTIONS 11/02/2018 4:33 PM Signed The following approved medication requests have been transmitted electronically. Signed Prescriptions Disp Refills rOPINIRole (REQUIP) 0.5 mg tablet 270 tablet 1 Sig: Take 1 tablet by mouth three times daily. ENRIQUE: No Authorizing Provider: KAMERON BERNARDO ([facility]) Kameron Bernardo APRN.RN CORRECTIONS Allergies As of Date: 11/02/2018 Noted Allergy [...] Status:Closed by KAMERON BERNARDO CNP on 11/02/18 Normal [facility] OBSOLETEon 10-20-2018 OBSOLETE Refill (FAMPWS) JAYJAYGEORGIA Durbin ([id number]) 1945 F Date Time Provider Department 10/20/18 [facility] today, we recorded the [...] Status:Closed by SETH CHOUDHARY CMA on 10/21/18 [facility] OBSOLETEon 10-07-2018 OBSOLETE Refill (INTMWS) [place] RO ([id number]) 1945 F Date Time Provider Department 10/07/18 [employer] During your visit today, we recorded [...] applicable Please advise. Thank you. Erin Bernardo APRN.RN CORRECTIONS 10/08/2018 10:40 AM Signed The following approved medication requests have been transmitted electronically. Signed Prescriptions Disp Refills losartan (COZAAR) 50 mg tablet 90 tablet 0 Sig: Take 1 tablet by mouth once daily. ENRIQUE: No Authorizing Provider: KAMERON BERNARDO (RN CORRECTIONS) Kameron Bernardo APRN.RN CORRECTIONS Allergies As of Date: 10/07/2018 Noted Allergy [...] Status:Closed by KAMERON BERNARDO CNP on 10/08/18 [facility] OBSOLETEon 08-31-2018 OBSOLETE Refill (INTMWS) JAYJAYGEORGIA ([id number]) 1945 F Date Time Provider Department 08/31/18 [facility] During your visit today, we recorded the following information about you: Seth Choudhary [facility] 08/31/2018 9:23 AM Signed Patient has been identified by name and date of : Yes Pharmacy phones for refill(s): Pending Prescriptions Disp Refills CELECOXIB 200 MG CAPSULE 90 capsule 1 Sig: Take 1 capsule by mouth once daily. ENRIQUE: No Date of last office visit in primary care: 03/24/18 Please advise. Thank you. Seth Choudhary [facility] Kameron Bernardo APRN.[facility] 08/31/2018 12:45 PM Signed The following approved medication requests have been transmitted electronically. Signed Prescriptions Disp Refills celecoxib (CELEBREX) 200 mg capsule 90 capsule 1 Sig: Take 1 capsule by mouth once daily. ENRIQUE: No Authorizing Provider: KAMERON BERNARDO ([facility]) Kameron Bernardo APRN.[facility] Allergies As of Date: 08/31/2018 Noted Allergy [...] is not on file. Encounter Status:Closed by TOVA KAMERON SANZ on 08/31/18 Normal [facility] PROGRESSon 05-12-2018 PROGRESS HNO ID: [id number] Author: Cintia (Rt) Cheli Mcginnis Service: (none) Author Type: Director Validation Type: Progress Notes Filed: 05/12/2018 8:25 AM [...] RT Jonathan May 12, 2018 8:07 AM Normal [facility] XR ANKLE 3V AP/LAT/OBL LTon 05-12-2018 [...] There is no focal soft tissue swelling. Healthcare Analyst: PSCB Transcribe Date/Time: May 12 2018 9:07A Dictated by : GIL MARTÍNEZ MD This examination was interpreted and the report reviewed and electronically signed by: GIL MARTÍNEZ MD on May 12 2018 9:11AM EST [id number] Normal [facility] XR TIBIA FIBULA 2V AP/LAT LT on [...] There is no focal soft tissue swelling. Healthcare Analyst: SHANNON Transcribe Date/Time: May 12 2018 9:07A Dictated by : GIL MARTÍNEZ MD This examination was interpreted and the report reviewed and electronically signed by: GIL MARTÍNEZ MD on May 12 2018 9:11AM EST [id number] [facility] [place] ([id number]) 1945 F Date Time Provider Department 05/04/18 KAMERON BERNARDO ([facility]) INTMWS During your visit today, we recorded the following information about you: Lilli Vale RN 05/04/2018 2:25 PM Signed Tricia merrill from [facility], part of [employer] regarding MRI of left ankle. This has been reviewed by medical physiologist and he would need additional clinical information to consider this for coverage. A peer to peer would need completed before 05/09/18, to consider this for possible coverage. Please call for peer to peer. Case # [id number]. Please review and advise. CARLITA Davis LPN 05/05/2018 9:18 AM Signed Vero with [facility], part of [employer] calling with an updated phone number to call to to the peer to peer [phone] Option 4. Case # [id number]. Lilli Bates LPN Amor Gomez RN 05/11/2018 8:54 AM Signed Moises Monge- reports PA for MRI has been denied. director of email marketing did not approve request due to no plain x-ray results. Will mail letter with appeal options to Kameron Bernardo (reports they have a blocked fax # for Megan Tova- they are not allowed to fax to). Call with any questions, case # [id number]. Kameron Bernardo APRN.[facility] 05/11/2018 10:06 AM Signed [...] will come in for xray. Kameron Bernardo APRN.[facility] 05/11/2018 10:20 AM Signed Addended by: KAMERON [...] M79.89] Order(s):XR TIBIA FIBULA 2V AP/LAT LT [[id number]] Order #: [id number] FUTURE XR ANKLE GENERAL 3V AP/LAT/OBL LT [[id number]] Order #: [id number] FUTURE Prescriptions as of 05/04/2018 Sig: POTASSIUM [...] by RAMÓN WILLIAMSON LPN on 05/11/18 Normal [facility] US EXTREMITY MASS/FLUID KATHY LEFT COMPLTon 03-31-2018 US EXTREMITY MASS/FLUID KATHY LEFT COMPLT Performed at [facility] APPROVED BY: Wilbert Freedman MD EXAM [...] be the next study of choice. Normal [facility] CNOVon 03-24-2018 CNOV Office Visit (INTMWS ) [place] RO ([id number]) 1945 F Date Time Provider Department 03/24/18 8:40 AM KAMERON BERNARDO ([facility]) INTMWS During your visit today, we [...] APRN.CNP 03/24/2018 9:38 AM Signed HPI/CC: [place] Durbin Jayjay is a 72 year old female with [...] be determined by imaging studies Kameron Bernardo APRN.RN CORRECTIONS Prescription instructions reviewed with patient as applicable. Potential red flag symptoms discussed with the patient. Reviewed appropriate action plan to take if red flag symptoms occur. Patient agreeable to treatment plan. Kameron Bernardo APRN.RN CORRECTIONS Referring Provider: SELF [[id number]] Allergies As of [...] capsuleRfl: 3 US EXTREMITY MASS/FLUID COLLECTION LT [[id number]] Order #: [id number] FUTURE Prescriptions as of 03/24/2018 Sig: POTASSIUM [...] by KAMERON BERNARDO CNP on 03/24/18 Normal [facility] PROGRESSon 03-24-2018 PROGRESS HNO ID: [id number] Author: Kameron Bernardo Service: (none) Author Type: [...] be determined by imaging studies Kameron Bernardo APRN.RN CORRECTIONS Prescription instructions reviewed with patient as applicable. Potential red flag symptoms discussed with the patient. Reviewed appropriate action plan to take if red flag symptoms occur. Patient agreeable to treatment plan. Kameron Bernardo APRN.RN CORRECTIONS Normal [facility] Office Visit: postop surgery 12/19/16on 02-05-2017 Dietary management education, guidance, and counseling (procedure) yes Invalid Interpretation Code [facility] Work Phone: Documentation of current medications (procedure) Done Invalid Interpretation Code [facility] Work Phone: [phone] Fall risk assessment No Invalid Interpretation Code [facility] Work Phone: [phone] Tobacco smoking status NHIS Never Invalid Interpretation Code [facility] Work Phone: [phone] Tobacco use CPHS Never smoker Invalid Interpretation Code [facility] Work Phone: [phone] Microbiology: Acid Fast Bact Cult/Smon 05-16-2016 AFBCS . Invalid Interpretation Code [facility] Work Phone: [phone] Replaced Document: (P) Fungshakira s Stainon 05-09-2016 FUNST . Invalid Interpretation Code [facility] Work Phone: Lab Report: Basic Metabolic Profile (BMP)on 04-05-2016 Anion gap 4 mmol/L Low 5-15 [facility] Work Phone: [phone] BUN/Creatinine Ratio 18.3 RATIO Invalid Interpretation Code 10-20 [facility] Work Phone: [phone] Calcium 9.4 mg/dL Invalid Interpretation Code 8.5-10.1 [facility] Work Phone: [phone] Chloride 103 mmol/L Invalid Interpretation Code 98-107 [facility] Work Phone: [phone] CO2 29.0 mmol/L Invalid Interpretation Code 21.0-32.0 [facility] Work Phone: [phone] Creatinine 0.77 mg/dL Invalid Interpretation Code 0.55-1.02 [facility] Work Phone: [phone] Creatinine 49.70 mL/min Invalid Interpretation Code [facility] Work Phone: [phone] eGFR (non-black) 79 mL/min/{1.73_m2} Invalid Interpretation Code >60 [facility] Work Phone: [phone] eGFR (non-black) 96 mL/min/{1.73_m2} Invalid Interpretation Code >60 [facility] Work Phone: [phone] Glucose mass conc 125 mg/dL High 70-110 [facility] Work Phone: [phone] Potassium molar conc 4.2 mmol/L Invalid Interpretation Code 3.5-5.1 [facility] Work Phone: [phone] Sodium 136 mmol/L Invalid Interpretation Code 136-145 [facility] Work Phone: [phone] Urea nitrogen 14 mg/dL Invalid Interpretation Code 7-18 [facility] Work Phone: [phone] Lab Report: CBC-Complete Blo od Cnt No Diffon 04-05-2016 Erythrocyte distribution width Auto Ratio (RBC) 12.5 % Invalid Interpretation Code 11.6-14.6 [facility] Work Phone: [phone] Erythrocytes (RBC) 4.30 10*6/uL Invalid Interpretation Code 4.2-5.4 [facility] Work Phone: [phone] Hematocrit (HCT) 38.8 % Invalid Interpretation Code 37-47 [facility] Work Phone: [phone] Hemoglobin mass conc (Bld) 13.2 g/dL Invalid Interpretation Code 12.0-15.0 [facility] Work Phone: [phone] MCH 30.7 pg Invalid Interpretation Code 27.0-32.0 [facility] Work Phone: [phone] MCHC mass conc (RBC) 34.0 G/GL Invalid Interpretation Code 32-36 [facility] Work Phone: [phone] MCV 90.2 fL Invalid Interpretation Code 81-99 [facility] Work Phone: [phone] Platelets 214 10*3/mm3 Invalid Interpretation Code 150-450 [facility] Work Phone: [phone] PMV by German 10.9 fL Invalid Interpretation Code 6.2-12.0 [facility] Work Phone: [phone] RDW SD 40.9 fL Invalid Interpretation Code 35.1-43.9 [facility] Work Phone: [phone] WBC (Leukocytes) 13.9 10*3/uL High 4.4-11.0 [facility] Work Phone: [phone] Lab Report: CBC W/Diff, Auto matedon 04-03-2016 Absolute Neut 4.5 X10 3/UL Invalid Interpretation Code 2.0-7.7 [facility] Work Phone: [phone] Basophils/100 WBC Auto (Bld) 0.4 % Invalid Interpretation Code 0-1 [facility] Work Phone: [phone] Eosinophils/100 leukocytes 1.2 % Invalid Interpretation Code 0-5 [facility] Work Phone: [phone] Immature granulocytes/100 WBC (Bld) 0.100 % Invalid Interpretation Code 0.0-0.9 [facility] Work Phone: [phone] Lymphocytes 2.60 X10 3/UL Invalid Interpretation Code 0.83-4.51 [facility] Work Phone: [phone] Lymphocytes/100 leukocytes 32.4 % Invalid Interpretation Code 19-41 [facility] Work Phone: [phone] Monocytes/100 leukocytes 9.4 % Invalid Interpretation Code 0-10 [facility] Work Phone: [phone] Neutrophils/100 WBC Auto (Bld) 56.5 % Invalid Interpretation Code 47-70 [facility] Work Phone: [phone] Lab Report: Prealbuminon Prealbumin 19.3 mg/dL Low 20.0-40.0 [facility] Work Phone: Vital Signs Date Time Vital Sign Value Performing Clinician Felipe byrd 10-27-2024 09:41-0400 Body height 167.[address] Eboni Katz MD Work Phone: [facility] 10-27-2024 09:41-0400 Body mass index (BMI) [Ratio] 32.5 kg/m2 Dr. Eboni Katz MD Work Phone: [facility] 10-27-2024 09:41-0400 Body temperature 97.5 [degF] Dr. Eboni Katz MD Work Phone: [facility] 10-27-2024 09:41-0400 Body weight 91.[address] Eboni Katz MD Work Phone: [facility] 10-27-2024 09:41-0400 Diastolic blood pressure 66 mm[Hg] Dr. Eboni Katz MD Work Phone: [facility] 10-27-2024 09:41-0400 Heart rate 66 /min Dr. Eboni Katz MD Work Phone: [facility] 10-27-2024 09:41-0400 Respiratory rate 16 /min Dr. Eboni Katz MD Work Phone: [facility] 10-27-2024 09:41-0400 SaO2% (BldA) [Mass fraction] 95 % Dr. Eboni Katz MD Work Phone: [facility] 10-27-2024 09:41-0400 Systolic blood pressure 112 mm[Hg] Dr. Eboni Katz MD Work Phone: [facility] 07-26-2024 09:08-0400 Body mass index (BMI) [Ratio] 34.3 kg/m2 Dr. Eboni Katz MD Work Phone: [facility] 07-26-2024 09:08-0400 Body temperature 98.2 [degF] Dr. Eboni Katz MD Work Phone: [facility] 07-26-2024 09:08-0400 Body weight 96.[address] Eboni Katz MD Work Phone: [facility] 07-26-2024 09:08-0400 Diastolic blood pressure 68 mm[Hg] Dr. Eboni Katz MD Work Phone: [facility] 07-26-2024 09:08-0400 Heart rate 72 /min Dr. Eboni Katz MD Work Phone: [facility] 07-26-2024 09:08-0400 Respiratory rate 18 /min Dr. Eboni Katz MD Work Phone: [facility] 07-26-2024 09:08-0400 SaO2% (BldA) [Mass fraction] 96 % Dr. Eboni Katz MD Work Phone: [facility] 07-26-2024 09:08-0400 Systolic blood pressure 124 mm[Hg] Dr. Eboni Katz MD Work Phone: [facility] 05-21-2023 10:26-0500 Body temperature 97.2 [degF] Dr. Eboni Katz Work Phone: [facility] 05-21-2023 10:26-0500 Diastolic blood pressure 64 mm[Hg] Dr. Eboni Katz Work Phone: [facility] 05-21-2023 10:26-0500 Heart rate 80 /min Dr. Eboni Katz Work Phone: [facility] 05-21-2023 10:26-0500 Respiratory rate 16 /min Dr. Eboni Katz Work Phone: [facility] 05-21-2023 10:26-0500 SaO2% (BldA) [Mass fraction] 98 % Dr. Eboni Katz Work Phone: [facility] 05-21-2023 10:26-0500 Systolic blood pressure 136 mm[Hg] Dr. Eboni Katz Work Phone: [facility] 05-21-2023 07:37-0500 Body height 167.[address] Eboni Katz Work Phone: [facility] 05-21-2023 07:37-0500 Body mass index (BMI) [Ratio] 33.4 kg/m2 Dr. Eboni Katz Work Phone: [facility] 05-21-2023 07:37-0500 Body weight [address] Eboni Katz Work Phone: [facility] 05-14-2023 08:03-0500 Body height 167.[address] Eboni Katz Work Phone: [facility] 05-14-2023 08:03-0500 Body mass index (BMI) [Ratio] 33.7 kg/m2 Dr. Eboni Katz Work Phone: [facility] 05-14-2023 08:03-0500 Body temperature 98.4 [degF] Dr. Eboni Katz Work Phone: [facility] 05-14-2023 08:03-0500 Body weight 94.[address] Eboni Katz Work Phone: [facility] 05-14-2023 08:03-0500 Diastolic blood pressure 70 mm[Hg] Dr. Eboni Katz Work Phone: [facility] 05-14-2023 08:03-0500 Heart rate 77 /min Dr. Eboni Katz Work Phone: [facility] 05-14-2023 08:03-0500 Respiratory rate 16 /min Dr. Eboni Katz Work Phone: [facility] 05-14-2023 08:03-0500 SaO2% (BldA) [Mass fraction] 98 % Dr. Eboni Katz Work Phone: [facility] 05-14-2023 08:03-0500 Systolic blood pressure 124 mm[Hg] Dr. Eboni Katz Work Phone: [facility] 05-02-2023 06:51-0500 Body mass index (BMI) [Ratio] 33.7 kg/m2 Dr. Eboni Katz Work Phone: [facility] 05-02-2023 06:51-0500 Body temperature 97.6 [degF] Dr. Eboni Katz Work Phone: [facility] 05-02-2023 06:51-0500 Body weight 94.[address] Eboni Katz Work Phone: [facility] 05-02-2023 06:51-0500 Diastolic blood pressure 62 mm[Hg] Dr. Eboni Katz Work Phone: [facility] 05-02-2023 06:51-0500 Heart rate 70 /min Dr. Eboni Katz Work Phone: [facility] 05-02-2023 06:51-0500 Respiratory rate 16 /min Dr. Eboni Katz Work Phone: [facility] 05-02-2023 06:51-0500 SaO2% (BldA) [Mass fraction] 97 % Dr. Eboni Katz Work Phone: [facility] 05-02-2023 06:51-0500 Systolic blood pressure 150 mm[Hg] Dr. Eboni Katz Work Phone: [facility] 02-10-2023 08:06-0400 Body height 167.[address] Eboni Katz Work Phone: [facility] 02-10-2023 08:06-0400 Body mass index (BMI) [Ratio] 33.4 kg/m2 Dr. Eboni Katz Work Phone: [facility] 02-10-2023 08:06-0400 Body weight 93.[address] Eboni Katz Work Phone: [facility] 02-10-2023 08:06-0400 Diastolic blood pressure 70 mm[Hg] Dr. Eboni Katz Work Phone: [facility] 02-10-2023 08:06-0400 Heart rate 50 /min Dr. Eboni Katz Work Phone: [facility] 02-10-2023 08:06-0400 Respiratory rate 16 /min Dr. Eboni Katz Work Phone: [facility] 02-10-2023 08:06-0400 SaO2% (BldA) [Mass fraction] 99 % Dr. Eboni Katz Work Phone: [facility] 02-10-2023 08:06-0400 Systolic blood pressure 130 mm[Hg] Dr. Eboni Katz Work Phone: [facility] 10-07-2022 08:00-0400 Body height 167.[address] Eboni Katz Work Phone: [facility] 10-07-2022 08:00-0400 Body mass index (BMI) [Ratio] 34.7 kg/m2 Dr. Eboni Katz Work Phone: [facility] 10-07-2022 08:00-0400 Body temperature 96.3 [degF] Dr. Eboni Katz Work Phone: [facility] 10-07-2022 08:00-0400 Body weight 97.[address] Eboni Katz Work Phone: [facility] 10-07-2022 08:00-0400 Diastolic blood pressure 76 mm[Hg] Dr. Eboni Katz Work Phone: [facility] 10-07-2022 08:00-0400 Heart rate 65 /min Dr. Eboni Katz Work Phone: [facility] 10-07-2022 08:00-0400 Respiratory rate 18 /min Dr. Eboni Katz Work Phone: [facility] 10-07-2022 08:00-0400 SaO2% (BldA) [Mass fraction] 99 % Dr. Eboni Katz Work Phone: [facility] 10-07-2022 08:00-0400 Systolic blood pressure 136 mm[Hg] Dr. Eboni Katz Work Phone: [facility] 08-23-2022 09:45-0400 Body temperature 97.3 [degF] Dr. Eboni Katz Work Phone: [facility] 08-23-2022 09:45-0400 Diastolic blood pressure 64 mm[Hg] Dr. Eboni Katz Work Phone: [facility] 08-23-2022 09:45-0400 Heart rate 70 /min Dr. Eboni Katz Work Phone: [facility] 08-23-2022 09:45-0400 Respiratory rate 16 /min Dr. Eboni Katz Work Phone: [facility] 08-23-2022 09:45-0400 SaO2% (BldA) [Mass fraction] 98 % Dr. Eboni Katz Work Phone: [facility] 08-23-2022 09:45-0400 Systolic blood pressure 110 mm[Hg] Dr. Eboni Katz Work Phone: [facility] 08-23-2022 08:10-0400 Body height 167.[address] Eboni Katz Work Phone: [facility] 08-23-2022 08:10-0400 Body mass index (BMI) [Ratio] 34.3 kg/m2 Dr. Eboni Katz Work Phone: [facility] 08-23-2022 08:10-0400 Body weight 96.[address] Eboni Katz Work Phone: [facility] 07-05-2022 08:24-0400 Body mass index (BMI) [Ratio] 35.1 kg/m2 Dr. Eboni Katz Work Phone: [facility] 07-05-2022 08:24-0400 Body temperature 96.4 [degF] Dr. Eboni Katz Work Phone: [facility] 07-05-2022 08:24-0400 Body weight 98.[address] Eboni Katz Work Phone: [facility] 07-05-2022 08:24-0400 Diastolic blood pressure 66 mm[Hg] Dr. Eboni Katz Work Phone: [facility] 07-05-2022 08:24-0400 Heart rate 76 /min Dr. Eboni Katz Work Phone: [facility] 07-05-2022 08:24-0400 Respiratory rate 18 /min Dr. Eboni Katz Work Phone: [facility] 07-05-2022 08:24-0400 SaO2% (BldA) [Mass fraction] 96 % Dr. Eboni Katz Work Phone: [facility] 07-05-2022 08:24-0400 Systolic blood pressure 142 mm[Hg] Dr. Eboni Katz Work Phone: [facility] 06-21-2022 10:41-0500 Body mass index (BMI) [Ratio] 33.9 kg/m2 Dr. Eboni Katz Work Phone: [facility] 06-21-2022 10:41-0500 Body weight 95.[address] Eboni Katz Work Phone: [facility] 09-18-2021 07:54-0400 Body height 167.[address] Eboni Katz Work Phone: [facility] Work Phone: 09-18-2021 07:54-0400 Body mass index (BMI) [Ratio] 34.9 kg/m2 Dr. Eboni Katz Work Phone: [facility] Work Phone: 09-18-2021 07:54-0400 Body temperature 97.2 [degF] Dr. Eboni Katz Work Phone: [facility] Work Phone: 09-18-2021 07:54-0400 Body weight 98.[address] Eboni Katz Work Phone: [facility] Work Phone: 09-18-2021 07:54-0400 Diastolic blood pressure 72 mm[Hg] Dr. Eboni Katz Work Phone: [facility] Work Phone: 09-18-2021 07:54-0400 Heart rate 76 /min Dr. Eboni Katz Work Phone: [facility] Work Phone: 09-18-2021 07:54-0400 Respiratory rate 18 /min Dr. Eboni Katz Work Phone: [facility] Work Phone: 09-18-2021 07:54-0400 SaO2% (BldA) [Mass fraction] 99 % Dr. Eboni Katz Work Phone: [facility] Work Phone: 09-18-2021 07:54-0400 Systolic blood pressure 148 mm[Hg] Dr. Eboni Katz Work Phone: [facility] Work Phone: 09-14-2021 08:18-0400 Body mass index (BMI) [Ratio] 34.8 kg/m2 Dr. Eboni Katz Work Phone: [facility] Work Phone: 09-14-2021 08:18-0400 Body weight 97.[address] Eboni Katz Work Phone: [facility] Work Phone: 09-14-2021 08:18-0400 Diastolic blood pressure 72 mm[Hg] Dr. Eboni Katz Work Phone: [facility] Work Phone: 09-14-2021 08:18-0400 Systolic blood pressure 150 mm[Hg] Dr. Eboni Katz Work Phone: [facility] Work Phone: 09-03-2021 08:51-0400 Body height 167.[address] Eboni Katz Work Phone: [facility] Work Phone: 09-03-2021 08:51-0400 Body mass index (BMI) [Ratio] 34.7 kg/m2 Dr. Eboni Katz Work Phone: [facility] Work Phone: 09-03-2021 08:51-0400 Body temperature 96.3 [degF] Dr. Eboni Katz Work Phone: [facility] Work Phone: 09-03-2021 08:51-0400 Body weight 97.[address] Eboni Katz Work Phone: [facility] Work Phone: 09-03-2021 08:51-0400 Diastolic blood pressure 70 mm[Hg] Dr. Eboni Katz Work Phone: [facility] Work Phone: 09-03-2021 08:51-0400 Heart rate 79 /min Dr. Eboni Katz Work Phone: [facility] Work Phone: 09-03-2021 08:51-0400 Respiratory rate 16 /min Dr. Eboni Katz Work Phone: [facility] Work Phone: 09-03-2021 08:51-0400 SaO2% (BldA) [Mass fraction] 98 % Dr. Eboni Katz Work Phone: [facility] Work Phone: 09-03-2021 08:51-0400 Systolic blood pressure 142 mm[Hg] Dr. Eboni Katz Work Phone: [facility] Work Phone: 08-08-2021 08:38-0400 Body height 167.[address] Eboni Katz Work Phone: [facility] Work Phone: 08-08-2021 08:38-0400 Body mass index (BMI) [Ratio] 34.7 kg/m2 Dr. Eboni Katz Work Phone: [facility] Work Phone: 08-08-2021 08:38-0400 Body temperature 97.6 [degF] Dr. Eboni Katz Work Phone: [facility] Work Phone: 08-08-2021 08:38-0400 Body weight 97.[address] Eboni Katz Work Phone: [facility] Work Phone: 08-08-2021 08:38-0400 Diastolic blood pressure 60 mm[Hg] Dr. Eboni Katz Work Phone: [facility] Work Phone: 08-08-2021 08:38-0400 Heart rate 71 /min Dr. Eboni Katz Work Phone: [facility] Work Phone: 08-08-2021 08:38-0400 Respiratory rate 14 /min Dr. Eboni Katz Work Phone: [facility] Work Phone: 08-08-2021 08:38-0400 SaO2% (BldA) [Mass fraction] 98 % Dr. Eboni Katz Work Phone: [facility] Work Phone: 08-08-2021 08:38-0400 Systolic blood pressure 120 mm[Hg] Dr. Eboni Katz Work Phone: [facility] Work Phone: 02-05-2017 08:08-0400 BMI (Body Mass Index) 31.19 kg/m2 Brennen Hopper MD [facility] Work Phone: 02-05-2017 08:08-0400 Body Temperature 96.7 [degF] Brennen Hopper MD [facility] Work Phone: 02-05-2017 08:08-0400 BP Diastolic 80 mm[Hg] Brennen Hopper MD [facility] Work Phone: 02-05-2017 08:08-0400 BP Systolic 132 mm[Hg] Brennen Hopper MD [facility] Work Phone: 02-05-2017 08:08-0400 BSA (Body Surface Area) 2.09 m2 Brennen Hopper MD [facility] Work Phone: 02-05-2017 08:08-0400 Height 173.99 cm Brennen Hopper MD [facility] Work Phone: 02-05-2017 08:08-0400 Pulse (Heart Rate) 79 /min Brennen Hopper MD [facility] Work Phone: 02-05-2017 08:08-0400 Respiratory Rate 16 /min Brennen Hopper MD [facility] Work Phone: 02-05-2017 08:08-0400 Weight 94.44 kg Brennen Hopper MD [facility] Work Phone: Encounters Encounter Date Encounter Type Care Provider Facility Start: 12-17-2024 ambulatory Eboni Cabral ty:[facility] Start: 11-23-2024 ambulatory Eboni Cabral ty:[facility] Start: 11-23-2024 Non-patient / Non-visit Dr. Arnoldo Phelps MD -[facility] Start: 11-23-2024 End: 11-23-[address] Eboni Katz MD Work Phone: -Cardiovascular Services Start: 11-23-2024 End: 11-23-[address] Eboni Katz MD -Cardiovascular Services Work Phone: Start: 11-23-2024 End: 11-23-2024 ambulatory Eboni Katz Facility:[facility] Start: 11-01-2024 End: 11-01-[address] Eboni Katz MD Work Phone: -Laboratory Specimen Start: 11-01-2024 End: 11-01-2024 Patient encounter procedure Ruby DRUMMOND -Laboratory Specimen Work Phone: Start: 11-01-2024 End: 11-01-2024 ambulatory Ruby Parekh Facility:[facility] Start: 10-28-2024 End: 10-28-2024 Patient encounter procedure Ruby DRUMMOND -[facility] Work Phone: Start: 10-28-2024 End: 10-28-[address] Eboni Katz MD Work Phone: -[facility] Start: 10-27-2024 End: 10-27-[address] Eboni Katz MD -[facility] Work Phone: Start: 10-27-2024 End: 10-27-[address] Eboni Katz MD Work Phone: -[facility] Start: 10-27-2024 End: 10-27-2024 ambulatory Eboni Katz Facility:[facility] Start: 10-19-2024 Non-patient / Non-visit Dr. Seth Villatoro MD -[facility] Work Phone: Start: 07-26-2024 End: 07-26-[address] Eboni Katz MD -[facility] Work Phone: Start: 07-26-2024 End: 07-26-2024 ambulatory Efewkaribe Adolfoe Facility:[facility] Start: 06-24-2024 End: 06-24-2024 ambulatory Efsheldonbe Adolfoe Facility:[facility] Start: 06-17-2024 End: 06-17-2024 ambulatory [facility] Facility:[facility] Start: 06-11-2024 End: 06-11-2024 ambulatory Ruby Parekh Facility:[facility] Start: 06-03-2024 End: 06-03-2024 ambulatory Ruby Izabella Facility:[facility] Start: 06-02-2024 End: 06-02-2024 ambulatory Moustapha Stanley Facility:[facility] Start: 04-19-2024 End: 04-19-2024 ambulatory Efewongbe Adolfoe Facility:[facility] Start: 04-19-2024 End: 04-19-2024 ambulatory Efewongaretha Katz Facility:[facility] Start: 03-29-2024 End: 03-29-2024 ambulatory Moustapha Stanley Facility:[facility] Start: 03-02-2024 End: 03-02-2024 ambulatory Ruby Parekh Facility:[facility] Start: 02-27-2024 End: 02-27-20[facility] Start: 02-24-2024 End: 02-24-2024 Emergency department patient visit Alexleroy Hendricks Facility:[facility] Start: 02-23-2024 End: 02-23-2024 ambulatory [facility] Facility:[facility] Start: 02-20-2024 End: 02-20-[facility] Start: 01-01-2024 End: 01-01-2024 ambulatory Phillipfrancheska Matacarola Facility:[facility] Start: 05-21-2023 Non-patient / Non-visit Dr. Eboni Katz Work Phone: [facility] Start: 05-21-2023 End: 05-21-2023 Admission to same day surgery center Dr. Eboni Katz Work Phone: [facility] Start: 05-21-2023 End: 05-21-[address] Eboni Katz Work Phone: [facility] Work Phone: Start: 05-14-2023 End: 05-14-[address] Eboni Katz Work Phone: [facility] Work Phone: Start: 05-14-2023 End: 05-14-[address] Eboni Katz Work Phone: [facility] Work Phone: Start: 05-02-2023 End: 05-02-[address] Eboni Katz Work Phone: [facility] Work Phone: Start: 04-04-2023 Non-patient / Non-visit Dr. Eboni Katz Work Phone: [facility] Start: 03-28-2023 End: 03-28-[address] Eboni Katz Work Phone: [facility] Work Phone: Start: 03-28-2023 End: 03-28-[address] Eboni Katz Work Phone: [facility] Work Phone: Start: 03-11-2023 End: 03-11-[address] Eboni Katz Work Phone: [facility] Work Phone: Start: 02-10-2023 End: 02-10-[address] Eobni Katz Work Phone: [facility] Work Phone: Start: 10-24-2022 End: 10-24-[address] Eboni Katz Work Phone: [facility] Work Phone: Start: 10-24-2022 End: 10-24-[address] Eboni Katz Work Phone: [facility] Work Phone: Start: 10-07-2022 End: 10-07-2022 Encounter for general adult medical examination without abnormal findings Dr. Eboni Katz Work Phone: [facility] Start: 10-07-2022 End: 10-07-[address] Eboni Katz Work Phone: [facility] Work Phone: Start: 08-23-2022 Non-patient / Non-visit Dr. Eboni Katz Work Phone: [facility] Start: 08-23-2022 End: 08-23-2022 Admission to same day surgery center Dr. Eboni Katz Work Phone: [facility]End[facility] Start: 08-23-2022 End: 08-23-[address] Eboni Katz Work Phone: [facility] Work Phone: Start: 07-05-2022 End: 07-05-[address] Eboni Katz Work Phone: [facility] Start: 06-21-2022 Non-patient / Non-visit Dr. Eboni Katz Work Phone: [facility] Start: 09-18-2021 End: 09-18-[address] Eboni Katz Work Phone: [facility]-Laboratory, Specimen Start: 09-18-2021 End: 09-18-[address] Eboni Katz Work Phone: [facility] Start: 09-14-2021 End: 09-14-[address] Eboni Katz Work Phone: [facility] Start: 09-03-2021 End: 09-03-[address] Eboni Katz Work Phone: [facility] Start: 08-15-2021 End: 08-15-[address] Eboni Katz Work Phone: [facility] Start: 08-08-2021 End: 08-08-[address] Eboni Katz Work Phone: [facility] Start: 10-06-[address] Eboni Katz Work Phone: [facility] Start: 03-31-2018 Patient encounter procedure KAMERON (RN CORRECTIONS) [facility] Procedures Date Procedure Procedure Detail Performing Clinician Start: 11-23-2024 Cardiovascular stres s test using pharmacologic stress agent Dr. Eboni Katz MD Work Phone: Start: 11-01-20[address] e detection Dr. Eboni Katz MD Work Phone: Start: 11-01-2024 End: 11-01-2024 Giardia lamblia antigen assay Dr. Eboni Katz MD Work Phone: Start: 11-01-2024 Measurement of occul t blood in stool specimen using immunoassay Dr. Eboni Katz MD Work Phone: Start: 11-01-[address] Eboni Katz MD Work Phone: Start: 11-01-20[address] [place] parasites identification [address] Eboni Katz MD Work Phone: Start: 11-01-[address] Sharon Katz MD Work Phone: Comment on above: TEST RESULTS LIMITSS tool Culture Salmonella/Shigella Screen Final report Result 1 No Salmonella or Shigella recovered. Campylobacter Culture Final report Result 1 No Campylobacter species isolated. E coli Shiga Toxin EIA Negative TESTING PERFORMED AT [facility]. ORIGINAL REPORT ON FILE IN LAB CONTAINS ADDITIONAL TEST SITE INFORMATION. __ Start: 11-01-2024 [facility]va&parasites direct smears concentration & id Dr. Eboni Katz MD Work Phone: Start: [...] 11-01-2024 Giardia Antigen (MICHELLE) Giardia Antigen (MICHELLE) [facility] Start: 11-01-2024 Ova and Parasites Ova and Parasites [facility] Start: 11-01-[address] [facility] Start: 11-01-2024 Elastase.pancreatic [Presence] in Stool [facility] Start: 11-01-[address] [facility] Start: 11-01-2024 [facility] Start: 10-27-2024 CBC W Auto Differential panel - Blood [facility] Start: 10-27-2024 Comprehensive metabolic 2000 panel - Serum or Plasma [facility] Start: 10-27-[address] [facility] Start: 10-27-2024 Thyroid stimulating hormone measurement [facility] Start: 10-27-2024 Vitamin D, 25-hydroxy measurement [facility] Start: 05-21-[address] [facility] Start: 04-04-[address] [facility] Work Phone: Start: 10-07-[address] [facility] Work Phone: Start: 08-23-[address] [facility] Start: 09-14-[address] [facility] Work Phone: Start: 02-05-2017 End: 02-25-2017 Follow Up Appt 6 weeks Follow Up Appt 6 weeks [facility] Work Phone: Start: 01-06-2017 End: 02-25-2017 Follow Up Appt 1 month Follow Up Appt 1 month [facility] Work Phone: Start: 12-25-2016 End: 02-25-2017 Follow up Appt 1 week Follow up Appt 1 week [facility] Work Phone: Start: 12-25-2016 End: 12-25-2016 OT-Hand Therapy [facility], [address] [place] [id number] [facility] Work Phone: Start: 12-05-2016 End: 12-25-2016 Follow Up Appt Other Follow Up Appt Other [facility] Work Phone: Start: 07-10-2016 End: 07-12-2016 Follow Up Appt 6 months Follow Up Appt 6 months [facility] Work Phone: Start: 06-26-2016 End: 07-12-2016 Follow Up Appt 2 weeks Follow Up Appt 2 weeks [facility] Work Phone: Start: 06-05-2016 End: 07-12-2016 Follow up Appt 3 weeks Follow up Appt 3 weeks [facility] Work Phone: Start: 05-22-2016 End: 07-12-2016 Follow Up Appt 2 weeks Follow Up Appt 2 weeks [facility] Work Phone: Start: 05-08-2016 End: 05-17-2016 Follow Up Appt 2 weeks Follow Up Appt 2 weeks [facility] Work Phone: Start: 04-24-2016 End: 05-17-2016 Follow Up Appt 2 weeks Follow Up Appt 2 weeks [facility] Work Phone: Start: 04-09-2016 End: 05-17-2016 Follow Up Appt 2 weeks Follow Up Appt 2 weeks [facility] Work Phone: Alanine aminotransfe rase [Enzymatic activity/volume] in Serum or Plasma [facility] Albumin [Mass/volume ] in Serum or Plasma [facility] Alkaline phosphatase [Enzymatic activity/volume] in Serum or Plasma [facility] Anion gap in Serum o r Plasma [facility] Bilirubin, total measurement [facility] BUN/Creatinine ratio [facility] Calcium [Mass/volume ] in Serum or Plasma [facility] Carbon dioxide, tota l [Moles/volume] in Central venous blood [facility] CBC W Auto Different ial panel - Blood [facility] Clostridioides diffi cile DNA [Presence] in Unspecified specimen by ELIZABETH with probe detection [facility] Colonoscopy [facility] Creatinine [Mass/vol ume] in Serum or Plasma [facility] Elastase.pancreatic [Presence] in Stool [facility] Erythrocyte mean corpuscular volume determination [facility] Giardia lamblia anti gen assay [facility] Glucose [Mass/volume ] in Serum or Plasma [facility] Hematocrit [Volume Fraction] of Blood [facility] Hemoglobin [Mass/vol ume] in Blood [facility] Hemoglobin A1c/Hemoglobin.total in Blood [facility] Leukocytes [#/volume ] in Blood [facility] Lipid 1996 panel - S marlene or Plasma [facility] Mean corpuscular hem oglobin concentration determination [facility] Mean corpuscular hem oglobin determination [facility] Measurement of occul t blood in stool specimen using immunoassay [facility] Measurement of renal function [facility] Neutrophil count [facility] Neutrophil percent differential count [facility] NM Heart Views W str ess and W radionuclide IV [facility] Nucleic acid assay [facility] OR parasites identification [facility] Patient Education [facility] Work Phone: Patient referral [facility] Work Phone: Platelets [#/volume] in Blood [facility] Potassium measurement [facility] Protein measurement [facility] Red blood cell count [facility] Red cell distributio n width determination [facility] Serum chloride measurement [facility] Sodium measurement [facility] Total protein measurement [facility] Urea nitrogen [Mass/ volume] in Serum or Plasma [facility] Immunizations Immunization Date Immunization Notes Care Provider Fa cility 05-20-2024 Covid (Isac & Isac) Dr. Eboni Katz MD Work Phone: [facility] 05-20-2024 Seasonal trivalent influenza vaccine, adjuvanted, preservative free Dr. Eboni Katz MD Work Phone: [facility] 02-10-2023 RSV Adult Recombinan t (Arexvy) Dr. Eboni Katz MD Work Phone: [facility] 01-27-2023 Covid (Spikevax) Dr. Lázaro Katz Work Phone: [facility] 01-27-2023 Influenza High-Dose Quadrivalent Dr. Eboni Katz Work Phone: [facility] 01-27-2023 influenza, injectabl e, quadrivalent, preservative free Dr. Eboni Katz MD Work Phone: [facility] 01-27-2023 Pfizer Covid-19 (Comirnaty) Dr. Eboni Katz MD Work Phone: [facility] 01-22-2022 Covid Pfizer Bivalen t Booster Dr. Eboni Katz MD Work Phone: [facility] 01-22-2022 influenza, injectabl e, quadrivalent, preservative free Dr. Eboni Katz MD Work Phone: [facility] 04-02-2021 Covid (Pfizer) Dr. Eboni Katz MD Work Phone: [facility] 07-20-2020 Covid (Pfizer) Dr. Eboni Katz Work Phone: [facility] 06-29-2020 Covid (Pfizer) Dr. Eboni Katz Work Phone: [facility] 02-09-2020 influenza, injectabl e, quadrivalent, preservative free Dr. Eboni Katz MD Work Phone: [facility] 02-16-2019 influenza, injectabl e, quadrivalent, preservative free Dr. Eboni Katz Work Phone: [facility] 02-16-2019 influenza, seasonal, injectable Dr. Eboni Katz Work Phone: [facility] 02-16-2019 Fluad 2018- 65yr up(PF)45 mcg(15 mcgx3)/0.5 mL intramuscular syringe (flu vac Dr. Eboni Katz Work Phone: [facility] Work Phone: 02-19-2016 influenza, high dose seasonal, preservative-free Dr. Eboni Katz MD Work Phone: [facility] 02-12-2016 influenza, injectabl e, quadrivalent, preservative free Dr. Eboni Katz Work Phone: [facility] 02-12-2016 influenza, seasonal, injectable Dr. Eboni Katz Work Phone: [facility] 01-19-2015 influenza, injectabl e, quadrivalent, preservative free Dr. Eboni Katz MD Work Phone: [facility] 11-18-2014 pneumococcal polysaccharide vaccine, [address] Eboni Katz MD Work Phone: [facility] 01-19-2014 influenza, injectabl e, quadrivalent, preservative free Dr. Eboni Katz MD Work Phone: [facility] 02-04-[address] Eboni Katz Work Phone: [facility] 03-30-[address] Kentrell Katz Work Phone: [facility] Work Phone: 03-30-2011 pneumococcal vaccine , unspecified formulation Dr. Eboni Katz Work Phone: [facility] 03-03-2008 influenza, injectabl e, quadrivalent, preservative free Dr. Eboni Katz MD Work Phone: [facility] 06-19-2004 TD(adult) unspecifie d formulation Dr. Eboni Katz MD Work Phone: [facility] 06-24-1990 hepatitis B vaccine, adult dosage Dr. Eboni Katz MD Work Phone: [facility] 12-24-1989 hepatitis B vaccine, adult dosage Dr. Eboni Katz MD Work Phone: [facility] 11-19-1989 hepatitis B vaccine, adult dosage Dr. Eboni Katz MD Work Phone: [facility] 02-19-1989 TD(adult) unspecifie d formulation Dr. Eboni Katz MD Work Phone: [facility] Payers Date Payer Category Payer Private Health Insurance [id number] 2023 Self-pay [id number] 2016 Private Health Insurance [id number] 2011 Medicare [id number] Unknown [id number] 2.16.8 40.1.301960.3.579.2.462 Unknown [id number] 2.16.8 40.1.534140.3.579.2.462 Unknown [id number] 2.16.8 40.1.601395.3.579.2.462 Unknown [id number] 2.16.8 40.1.909837.3.579.2.462 Unknown [id number] 2.16.8 40.1.205430.3.579.2.462 Unknown [id number] 2.16.8 40.1.154463.3.579.2.462 Unknown [id number] 2.16.8 40.1.698422.3.579.2.462 Unknown [id number] 2.16.8 40.1.153248.3.579.2.462 Unknown [id number] 2.16.8 40.1.844205.3.579.2.462 Unknown [id number] 2.16.8 40.1.134382.3.579.2.462 Unknown [id number] 2.16.8 40.1.219825.3.579.2.462 Unknown [id number] 2.16.8 40.1.089490.3.579.2.462 Unknown [id number] 2.16.8 40.1.196914.3.579.2.462 Unknown [id number] 2.16.8 40.1.725244.3.579.2.462 Unknown [id number] 2.16.8 40.1.337628.3.579.2.462 Unknown [id number] 2.16.8 40.1.496990.3.579.2.462 Unknown [id number] 2.16.8 40.1.640860.3.579.2.462 Unknown [id number] 2.16.8 40.1.578314.3.579.2.462 Unknown [id number] 2.16.8 40.1.741246.3.579.2.462 Unknown [id number] 2.16.8 40.1.248768.3.579.2.462 Unknown [id number] 2.16.8 40.1.159806.3.579.2.462 Unknown [id number] 2.16.8 40.1.020001.3.579.2.462 Unknown [id number] 2.16.8 40.1.505841.3.579.2.462 Unknown [id number] 2.16.8 40.1.805959.3.579.2.462 Social History Date Type Detail Facility Start: 08-08-2021 End: 05-14-2023 Tobacco smoking status NHIS Unknown if ever smoked [facility] Start: 08-08-2021 None [facility] Start: 08-08-2021 Homeless [facility] Start: 10-25-2019 Non-smoker [facility] Start: 1945 Sex Assigned At Female [facility] Start: 03-24-2024 Tobacco smoking status NHIS Never smoked tobacco (finding) [facility] NEGATED: Highlighted row [facility] Medical Equipment Procedure Code Equipment Code Equipment Origin al Text Equipment Identifier Dates Excision, lymph node Ligation clip, metallic [id number] FDA Start: 05-21-2023 asymmetric patella FDA Start: [...] /State Mental Status Date Assessment Result Facility 01-31-2024 Cognitive function Voice/Name [facility] Work Phone: 08-23-2022 Cognitive function Voice/Name [facility] Work Phone: 08-23-2022 Cognitive function Patient Deven tello Person;Place;Time [facility] Work Phone: Clinical Notes 08-23-2022 to 10-27-2024 Note Date & Type Note Facility 10-27-2024 Evaluation note Diagnosis Onset Date Resolution GI bleed acute October 27, 2024 9:28am Borderline type 2 diabetes mellitus chronic October 27, 2024 9:28am Dyspnea on exertion chronic October 27, 2024 9:28am Hypertension chronic October 27 9:28am Obstructive sleep apnea chronic J leroy2024 9:28am Restless leg syndrome chronic Oct 9:28am Abdominal pain acute October 28, 2024 12:45pm Dark stools acute October 28 12:45pm [facility] Work Phone: 1(731) 714-324804-07-2025 Evaluation note* Diagnosis Onset Date Resolution Status Admit Date Borderline type 2 diabetes mellitus chronic July 26, 2024 8:57am Hyperlipidemia chronic July 26, 2024 8:57am Hypertension chronic July 26, 2 025 8:57am Restless legs syndrome chronic Ap ril 2024 8:57am [facility] Work Phone: 1(752) 654-436404-07-2025 Evaluation note* Diagnosis Onset Date Resolution Status [...] 27 9:28am Obstructive sleep apnea chronic J leroy 2024 9:28am Restless leg syndrome chronic Oct 9:28am Abdominal pain acute October 28, 2024 12:45pm Dark stools acute October 28 12:45pm [facility] Work Phone: 1(220) 519-627512-09-2024 [facility] Medical Records Department [address] [place] [address] History Physical Exam 03/29/24 0743 MR#: [id number] Acct: [id number] Name: GEORGIA RO Rep #: [id number] : 1945 78 From: Moustapha Friend DO PCP: Dr. Eboni Katz MD Status:REG [facility] Location: [place] [address] History and Physical Date of Admission: 03/29/24 [...] Appearance: average body habitus and well nourished HENMT Head: normal to inspection Ears: hearing grossly [...] CC: Dr. Eboni Allen (more content not included)...[facility] 05-21-2023 History and physical note Author Andre Machado [facility] May 21, 2023 8:02am Note Date/Time May 21, 2023 8 :02am [facility] Medical Records Department [address] [place] [address] H&P Exam - Surgical 05/21/23 0800 MR#: [id number] Acct: [id number] Name: GEORGIA RO Rep #:[id number] : 1945 77 From: Andre melvin MD PCP: Dr. Eboni Katz MD Status:R [facility] Location: [place] [address] HPI - General HPI Narrative GEORGIA RO, is a 77 F who presents for excisional biopsy of left axillary lymphnode. The patient had lymph node biopsy about a year ago and which was normal. She has been having pain ever since and she had repeat imaging that showed enlargement of her lymph nodes on her left side. [facility] Medical History Actinic keratosis Arthritis Back problem [...] Manuel SUN EXPOSURE: FREQUENTLY ROS Constitutional Constitutional: Denies [...] willing to proceed. Andre Machado MD Pager: [facility] [address] [place] [address], [address] [place] [address] Office: 05/21/23 0802 <Electronically signed by Andre Machado MD> Cosigner Signature (if applicable): CC: Dr. Andre Machado MD; Dr. Eboni Katz MD~ Signed [facility] Work Phone: 1(465) 208-260101-31-2024 Procedure [facility] 08-23-2022 Procedure [facility] [facility] Andre Mach[facility] May 21, 2023 9:36am Note Date/Time May 21, 2023 9 :34am [facility] Medical Records Department [address] [place] [address] Instructions for Home/Discharge Instructions 05/21/23 0933 MR#: [id number] Acct: [id number] Name: GEORGIA RO Rep #:[id number] : 1945 77 From: Andre melvin MD PCP: Dr. Eboni Katz MD Status:R EG [facility] Discharge Instructions Diet Discharge Diet: Light diet [...] to schedule 2 week follow up appointment. [phone] Test Results: Test results from this visit [...] can be placed): Home, Self Care 05/21/23 3936<Electronically signed by Andre Machado MD>Andre Machado MD CC: Dr. Eboni Katz MD ~ Signed [facility] Work Phone: evaluation noteNo assessment information available [facility] Work Phone: evaluation note* Diagnosis Onset Date Resolution Status Shortness of breath acute Bilateral lower extremity edema chronic Chronic sinusitis chronic Hypertension chronic [facility] Work Phone: Evaluation note* Diagnosis Onset Date Resolution Status Shortness of breath acute Bilateral lower extremity edema chronic Chronic sinusitis chronic Hypertension chronic Lymphadenopathy acute Lymphadenopathy acute [facility] Work Phone: Evaluation note* Diagnosis Onset Date Resolution Status Sinusitis acute Borderline type 2 diabetes mellitus chronic Depression with anxiety motion picture critic natanael Dupuytren's contracture motion picture critic natanael Hypertension chronic Restless legs syndrome chron ic Encounter for screening for malignant neoplasm of colo n acute [facility] Work Phone: Evaluation note* Diagnosis Onset Date Resolution Status Sinusitis acute Borderline type 2 diabetes mellitus chronic Depression with anxiety motion picture critic natanael Dupuytren's contracture motion picture critic natanael Hypertension chronic Restless legs syndrome chron ic Encounter for screening for malignant neoplasm of colo n acute Health care maintenance acut e Benign essential hypertension chronic Borderline type 2 diabetes mellitus chronic Dupuytren's contracture motion picture critic natanael GERD (gastroesophageal reflux disease) chronic [facility] Work Phone: Evaluation note* Diagnosis Onset Date Resolution Status Benign essential hypertension chronic Borderline type 2 diabetes mellitus chronic Restless legs syndrome chron ic Left axillary pain acute [facility] Work Phone: Evaluation note* Diagnosis Onset Date Resolution Status Benign essential hypertension chronic Borderline type 2 diabetes mellitus chronic Restless legs syndrome chron ic Left axillary pain acute Acute sinusitis acute Sinusitis acute Borderline type 2 diabetes mellitus chronic Hypertension chronic Restless leg syndrome chroni c [facility] Work Phone: Evaluation note* Diagnosis Onset Date Resolution Status Benign essential hypertension chronic Borderline type 2 diabetes mellitus chronic Restless legs syndrome chron ic Left axillary pain acute Acute sinusitis acute Sinusitis acute Borderline type 2 diabetes mellitus chronic Hypertension chronic Restless leg syndrome chroni c Left axillary pain acute Lymphadenopathy acute [facility] Work Phone: History and physical note Author Dr. Machado [facility] August 23, 2022 9:07am Note Date/Time August 23, 2022 9:07am [facility] Medical Records Department [address] [place] [address] History & Physical Exam 08/23/22 0905 MR#: [id number] Acct: [id number] Name: GEORGIA RO Rep #:[id number] : 1945 76 From: Andre melvin MD PCP: Dr. Eboni Katz MD Status:R [facility] Location: [place] [address] HPI - General HPI Narrative GEORGIA RO, is a 76 F who presents for screening colonoscopy. Her last colonoscopy was 10 years ago and was normal. She denies abdominal pain or bloodin the stool or family history of colon cancer. [facility] Medical History (Updated 07/24/22 @ 09:45 by [...] safe at home: Yes additional social history: [facility] SUN EXPOSURE: FREQUENTLY Past Medical/Surgical History [...] Surgery/Stents/Etc.: No Hx Stress Test: Yes (04/02 [facility]) Hx Pain in Legs when Walking/Leg [...] history Discharge Is Pt Admitted From a Intermediate, or a Jail: No After D/C, Where Do you Plan [...] proceed with procedure. Andre Machado MD Pager: [facility] [address] [place] [address], [address] [place] [address] Office: Surgery Risks - Colonoscopy Risks Include but are not Limited To: Risks include but are not limited to: Bleeding, perforation requiring further surgery, inability to complete colonoscopy requiring barium enema. 08/23/22 0907 <Electronically signed by Andre Machado MD> Cosigner Signature (if applicable): CC: Dr. Andre Machado MD; Dr. Eboni Katz MD~ Signed [facility] Work Phone: Hospital Discharge instructions Additional Instructions Alternate ibuprofen and Tylenol for pain, oxycodone for breakthrough pain. Implant Used?: [facility] Work Phone: Reason for referral (narrative)No [facility] Work [facility]: Summary Purpose Family History No [...] Recorded Date/ Time Advance Directives Yes August 08, 022 8:38am Living Will Yes August 08, 2021 8:38am Power of Clip Wrapper Yes August 08 8:38am Advance Directive Response Recorded Date/ Time Advance Directives Yes September 14 8:50am Living Will Yes September 14, 2021 8 :50am Power of Clip Wrapper Yes September 14, 2021 8:50am Advance Directive Response Recorded Date/ Time Name of Medical Power of Clip Wrapper SPOUSE August 20, 2022 11:48am Advance Directives Yes September 14 8:50am Living Will Yes August 20, 2022 11 :48am Power of Clip Wrapper Yes August 20, 2022 11:48am Advance Directive Response Recorded Date/ Time Advance Directives Yes September 14 7:50am Living Will Yes August 20, 2022 10 :48am Power of Clip Wrapper Yes August 20, 2022 10:48am Advance Directive Response Recorded Date/ Time Advance Directives Yes September 14 7:50am Living Will Yes May 01 8:49am Power of Clip Wrapper Yes May 01, 2023 8:49am Advance Directive Response Recorded Date/ Time Name of Medical Power of Clip Wrapper May 01, 2023 8:49am Advance Directives Yes September 14 7:50am Living Will Yes May 01 8:49am Power of Clip Wrapper Yes May 01, 2023 8:49am Advance Directive [...] LUMP LEFT BREAST Swelling in legs 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) Enlarged LN left axilla, QUALITY CONTROL ANALYST wants bx LEFT AXILLARY LYMPH NODE BIOPSY [...] Dark stools October 28, 2024 12:4 5pm Chief Complaint Admit Date 3 m fu October 27, 2024 9:28a m FU PER RUBY October 28, 2024 12:4 5pm dyspnea on exertion November 23, 2024 6:2 9am dyspnea on exertion November 23, 2024 5:2 5pm Reason for Visit Admit Date GI bleed October 27, 2024 9:28a m [...] section and content) DATE CREATED AUTHOR 04/02/2018 [facility] DATE CREATED AUTHOR AUTHOR'S ORGANIZ ATION 04/03/2018 [facility] DATE CREATED AUTHOR AUTHOR'S ORGANIZ ATION 03/15/2019 [facility] DATE CREATED AUTHOR AUTHOR'S ORGANIZ ATION 12/16/2024 [facility] Goals (unrecognized section and content) Goals may [...] Dr. Eboni Katz MD Primary Care P rohughder, Attending Provider, Referring Provider Active Team Status: [...] November 01, 2024 End: November 01, 2024 Team Status: Inactive Member Role/Relationship Status Dates Dr. Eboni Katz MD Primary Care Provider Active Start: October 19, 2024 Dr. Seth Villatoro MD Attending Provider Active Start: October 19, 2024 Team Status: Inactive Member Role/Relationship Status Dates Dr. Eboni Katz MD Primary Care Provider Active Start: November 23, 2024 End: November 23, 2024 Dr. Eboni Katz MD Attending Provider Active Start: November 23, 2024 End: November 23, 2024 Dr. Eboni Katz MD Referring Provider Active Start: November 23, 2024 End: November 23, 2024 Team Status: Active Member Role/Relationship Status Dates Dr. Eboni Katz MD Primary Care Provider Active Start: November 23, 2024 Dr. Eboni Katz MD Referring Provider Active Start: November 23, 2024 Dr. Eboni Katz MD Other Provider Active Start: November 23, 2024 Dr. Arnoldo Phelps MD Attending Provider Active S tart: November 23, 2024 FOR RECORDS PERTAINING TO PATIENTS WHO [...] BE BASED ON THE PRIMARY CLINICAL RECORDS. [employer] provides no warranty or guarantee of the accuracy or completeness of information in this document.
--- NOTE | 2024-12-17 06:30 | PCM.PRE.AN2 ---
ASA Classification* ASA Classification ASA Classification: 2 Assessment & Plan Anesthesia* Anesthesia Assessment Anesthesia Assessment: Discussed sedation and/or anesthesia options, risks, benefits, and alternatives with patient/parents/legal guardian/POA. Questions invited. The patient/parents/legal guardian/POA seems to understand and agrees to proceed with anesthesia plan. Reviewed the physical assessment, medical history, allergy history and patient home medications list prior to surgery/procedure/anesthetic and documented any changes. Performed airway and anesthesia risk assessments. Anesthesia Type Anesthesia Type: MAC Anesthesia Focused Assessment* Temperature: 97 F Pulse Rate: 69 Blood Pressure: 117/64 Respiratory Rate: 16 Pulse Ox: 100 Airway Assessment Mouth opens: >3 cm Mallampati Score: II Labs Anesthesia Preop lab: CBC WBC 7.2 K/mm3 (4.4-11.0) 10/27/24 10:10 10/27/24 RBC 4.61 M/mm3 (4.2-5.4) 10/27/24 10:10 10/27/24 Hgb 13.7 g/dL (12.0-15.0) 10/27/24 10:10 10/27/24 Hct 41.9 % (37-47) 10/27/24 10:10 10/27/24 Plt Count 233 K/mm3 (150-450) 10/27/24 10:10 10/27/24 CHEMISTRY Potassium 4.8 mmol/L (3.3-5.1) 10/27/24 10:10 10/27/24 Sodium 140 mmol/L (133-145) 10/27/24 10:10 10/27/24 Magnesium 1.7 mg/dL (1.6-2.6) 11/06/18 09:26 11/06/18 BUN 20 mg/dL (4-19) H 10/27/24 10:10 10/27/24 Creatinine 1.13 mg/dL (0.70-1.20) 10/27/24 10:10 10/27/24 Glucose 103 mg/dL (70-99) H 10/27/24 10:10 10/27/24 POC Glucose 136 mg/dL (70-110) H 10/25/19 09:51 10/25/19 TSH 3.280 uIU/mL (0.300-4.200) 10/27/24 10:10 10/27/24 COAG PT 14.0 SECONDS (11.7-14.9) 02/24/24 16:40 02/24/24 Pre-Assessment Diagnosis/Proposed Procedure Planned Operative Procedure(s): Colonoscopy,EGD Anesthesia History Anesthesia History - service control operator: Anesthesia History - service control operator Hx Hospitalization No 12/16/24 09:08 Any Problems With Anesthesia Yes: ponv 12/16/24 09:08 Cholinesterase deficiency No 12/16/24 09:08 You/Your Family Experience No 12/16/24 09:08 fever (hyperthermia) with Relationship Recent Exposure to Contagious No 12/17/24 06:25 Disease Does patient have nerve No 12/16/24 09:08 stimulator Patient instructed to have device shut off --Does patient have Pacemaker No 12/17/24 06:25 or ICD? When Was Last Pacemaker Check QUESTION #4 FULL TEXT: You/Your Family Experience fever (hyperthermia) with Anesthesia Last Oral Intake Last Oral intake: Last Oral Intake NPO since 05:00 12/17/24 06:25 Meds taken in AM with sips of water? 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 - service control operator: PONV - service control operator Female Yes 12/16/24 09:08 HX of Motion Sickness No 12/16/24 09:08 HX of N/V After Surgery Yes 12/16/24 09:08 Non-Smoker Yes 12/16/24 09:08 Duration of Surgery greater No 12/16/24 09:08 than 60 minutes Number of Risk Factors 3 12/16/24 09:08 PONV Score Moderate Risk 12/16/24 09:08 Height & Weight Height & Weight: Anesthesia: Height & Weight Height 5 ft 6 in 12/17/24 06:25 Weight: 88.904 kg 12/17/24 06:25 Body Mass Index (BMI) 31.6 12/17/24 06:25 Respiratory Assessment Respiratory Assessment - service control operator: Respiratory Tract Infection Hx - service control operator Hx Respiratory Tract Infection No 12/16/24 09:08 STOP Sleep Apnea STOP Sleep Apnea - service control operator: STOP Sleep Apnea - service control operator Hx Hypertension Yes: on meds 12/16/24 09:08 Hx Sleep Apnea No 12/16/24 09:08 CPAP No 03/29/24 09:03 BIPAP No 03/24/24 16:09 Do you snore loudly (louder No 12/16/24 09:08 than talking or can be heard Do you often feel tired/ No 12/16/24 09:08 fatigued/ sleepy during daytime? Has anyone observed you stop No 12/16/24 09:08 breathing during sleep? STOP Results Negative 12/16/24 09:08 QUESTION #5 FULL TEXT : Do you snore loudly (louder than talking or can be heard through closed doors)? 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 Specify any problems Hx of Preganancy in last 3 No 12/16/24 09:08 Months Nurse Filling Out Transfusion JZOLLINGE 12/16/24 09:08 & Questions: Date: 12/16/24 12/16/24 09:08 Time: 09:10 12/16/24 09:08 Patient unable to answer at this time (ie. confused, unrespo /Reproduction History /Reproductive History - service control operator: /Reproductive Hx- service control operator Hx Now No 12/16/24 09:08 Gestational Age (in weeks): EDC: Hx Hx Para Hx Section SAB No 12/16/24 09:08 Active Medications Active Medications: Current Medications Generic Name Dose Route Start Last Admin Trade Name Freq PRN Reason Stop Dose Admin Lactated Ringer's 1,000 mls @ 15 mls/hr 12/17/24 06:15 IV .Q48H MARIA FERNANDA PFSH Medical History Bladder disease Difficulty swallowing History of hiatal hernia Gastric reflux History of stress test Dyspnea on exertion Osteopenia PONV (postoperative nausea and vomiting) GI bleed Dark stools Left renal mass Abnormal CT of the abdomen Dupuytren contracture of right hand LLQ pain Obesity (BMI 30-39.9) Small lymphocytic lymphoma Wears glasses Wears partial dentures Wears dentures Seasonal allergies Non-smoker Sinusitis GERD (gastroesophageal reflux disease) Borderline type 2 diabetes mellitus Right hand pain Hyperglycemia Chronic sinusitis Shortness of breath Bilateral lower extremity edema Flu vaccine need Health care maintenance Tinnitus H/O tinnitus Chronic vertigo Cataracts, bilateral Back problem Actinic keratosis Cancer of skin of left ear Dupuytren's contracture Open cat bite of hand Cat bite of right hand with infection Restless leg syndrome Arthritis Vertigo High cholesterol Chronic hypertension Generalized osteoarthritis Home Medications ?Medication ?Instructions ?Recorded ?Last Taken ?Type multivitamin with iron 1 tab PO DAILY 03/31/13 03/28/24 History biotin 2,500 mcg capsule 2,500 mcg PO ONCE 07/15/17 03/28/24 History celecoxib 200 mg capsule (Celebrex) 200 mg PO DAILY PRN pain #90 caps 09/16/23 03/28/24 Rx potassium chloride 20 mEq 20 meq PO BID #180 tabs 01/26/24 03/28/24 Rx tablet,extended release hydrochlorothiazide 25 mg tablet See Rx Instructions .Route 06/28/24 Unknown Rx .COMPLEX #90 tabs ropinirole 0.5 mg tablet 0.5 mg PO TID #360 tabs 06/28/24 12/17/24 Rx losartan 100 mg tablet 100 mg PO DAILY 3 months #90 tabs 09/06/24 12/17/24 Rx oxybutynin chloride 10 mg 10 mg PO QDAY #90 tabs 09/06/24 Unknown Rx tablet,extended release 24 hr amlodipine 5 mg tablet 7.5 mg (1.5 x 5 mg) PO DAILY 3 09/20/24 12/17/24 Rx months #135 tabs metformin 500 mg tablet,extended 500 mg PO BID #90 tabs 10/04/24 Unknown Rx release 24 hr acetaminophen 325 mg tablet 650 mg PO Q4H PRN PRN Pain Or Fever 10/27/24 Unknown History aspirin 81 mg tablet 81 mg PO QDAY 10/27/24 12/09/24 History pantoprazole 40 mg tablet,delayed 40 mg PO BID #180 tabs 10/27/24 12/17/24 Rx release Allergy/AdvReac Type Severity Reaction Status Date / Time lisinopril (From Zestril) AdvReac Intermediate Cough Verified 12/17/24 06:23 hydrocodone bitartrate (From AdvReac Mild Itching Verified 12/17/24 06:23 Vicodin) Family History Father Myocardial infarction Heart disease Hypertension Mother Breast cancer Grandmother Breast cancer Sister Lung cancer Seizures Surgical History History of surgical removal of skin lesion History of lymph node excision History of left knee replacement History of colonoscopy History of lymph node biopsy History of cataract extraction H/O vaginal hysterectomy History of hysterectomy Cancer of skin of left ear Cat bite of right hand including fingers with infection Dupuytren contracture cancer removed S/P appendectomy S/P arthroscopy of knee History of total right knee replacement Social History Smoking Status: Never smoker alcohol intake: never substance use type: does not use caffeine: Yes what type of physical activity do you participate in: none seatbelt use: always do you feel safe at home: Yes additional social history: - [employer] SUN EXPOSURE: FREQUENTLY Review of Systems (Anesthesia) ROS Narrative System reviewed and no additional complaints, except as documented.
[2024-12-17] MEDS: Lactated Ringers 1,000 ML 15 ML IV (06:32)
--- NOTE | 2024-12-17 06:50 | PCM.HP.STD ---
HPI - General General Date of Admission: 12/17/24 Date of Service: 12/17/24 Chief Complaint: black stools and anemia HPI Narrative GEORGIA TALAVERA, is a 79 F who presents with the Chief Complaint: black stools I established 11 with complaints of burning esophageal/epigastric pain, nausea and black stools. Presented to the ED with these symptoms and was discharged on Pantoprazole 40 mg BID and Carafate 1 gram bid. Last EGD [address] abdomen pelvis 02.24.24; Findings which may be consistent with nonspecific gastritis.. Hyperdense left renal nodule consistent with hemorrhagic cyst unchanged since previous study No evidence for small bowel obstruction or other acute abnormality post hysterectomy and appendectomy EGD 03.29.24; - Z-line irregular, 39 cm from the incisors. Biopsied. - Small hiatal hernia. - A single gastric polyp. - Erythematous mucosa in the gastric body. Biopsied. - No gross lesions in the first portion of the duodenum. Biopsied. *2..25 office contacted due to black stools and continued pain. CBC wnl, KUB showing constipation, FOBT negative OV 2.21.25; Pt continues to have daily burning epigastric pain. She endorses nausea, bloating and constipation. She continues with pantoprazole once daily. SHe does not feel like the PPI or Carafate has helped with her symptoms. She feels her symptoms may be related to her gallbladder. She is also having constipation with small hard bm daily. SHe takes Benefiber daily. OV 7.10.25 Pt with black stools x2 weeks. They are intermittently black. Alternating between soft and normal stools. SHe continue to have lower abd cramping, epigastric pain and nausea. She has not noticed these symptoms being particularly worss than usual. Continues with PPI daily. PCP refilled Carafate however she has not yet started it. [facility] Medical History Bladder disease Difficulty swallowing History of hiatal hernia Gastric reflux History of stress test Dyspnea on exertion Osteopenia PONV (postoperative nausea and vomiting) GI bleed Dark stools Left renal mass Abnormal CT of the abdomen Dupuytren contracture of right hand LLQ pain Obesity (BMI 30-39.9) Small lymphocytic lymphoma Wears glasses Wears partial dentures Wears dentures Seasonal allergies Non-smoker Sinusitis GERD (gastroesophageal reflux disease) Borderline type 2 diabetes mellitus Right hand pain Hyperglycemia Chronic sinusitis Shortness of breath Bilateral lower extremity edema Flu vaccine need Health care maintenance Tinnitus H/O tinnitus Chronic vertigo Cataracts, bilateral Back problem Actinic keratosis Cancer of skin of left ear Dupuytren's contracture Open cat bite of hand Cat bite of right hand with infection Restless leg syndrome Arthritis Vertigo High cholesterol Chronic hypertension Generalized osteoarthritis Home Medications ?Medication ?Instructions ?Recorded ?Last Taken ?Type multivitamin with iron 1 tab PO DAILY 03/31/13 03/28/24 History biotin 2,500 mcg capsule 2,500 mcg PO ONCE 07/15/17 03/28/24 History celecoxib 200 mg capsule (Celebrex) 200 mg PO DAILY PRN pain #90 caps 09/16/23 03/28/24 Rx potassium chloride 20 mEq 20 meq PO BID #180 tabs 01/26/24 03/28/24 Rx tablet,extended release hydrochlorothiazide 25 mg tablet See Rx Instructions .Route 06/28/24 Unknown Rx .COMPLEX #90 tabs ropinirole 0.5 mg tablet 0.5 mg PO TID #360 tabs 06/28/24 12/17/24 Rx losartan 100 mg tablet 100 mg PO DAILY 3 months #90 tabs 09/06/24 12/17/24 Rx oxybutynin chloride 10 mg 10 mg PO QDAY #90 tabs 09/06/24 Unknown Rx tablet,extended release 24 hr amlodipine 5 mg tablet 7.5 mg (1.5 x 5 mg) PO DAILY 3 09/20/24 12/17/24 Rx months #135 tabs metformin 500 mg tablet,extended 500 mg PO BID #90 tabs 10/04/24 Unknown Rx release 24 hr acetaminophen 325 mg tablet 650 mg PO Q4H PRN PRN Pain Or Fever 10/27/24 Unknown History aspirin 81 mg tablet 81 mg PO QDAY 10/27/24 12/09/24 History pantoprazole 40 mg tablet,delayed 40 mg PO BID #180 tabs 10/27/24 12/17/24 Rx release Allergy/AdvReac Type Severity Reaction Status Date / Time lisinopril (From Zestril) AdvReac Intermediate Cough Verified 12/17/24 06:23 hydrocodone bitartrate (From AdvReac Mild Itching Verified 12/17/24 06:23 Vicodin) Family History Father Myocardial infarction Heart disease Hypertension Mother Breast cancer Grandmother Breast cancer Sister Lung cancer Seizures Surgical History History of surgical removal of skin lesion History of lymph node excision History of left knee replacement History of colonoscopy History of lymph node biopsy History of cataract extraction H/O vaginal hysterectomy History of hysterectomy Cancer of skin of left ear Cat bite of right hand including fingers with infection Dupuytren contracture cancer removed S/P appendectomy S/P arthroscopy of knee History of total right knee replacement Social History Smoking Status: Never smoker alcohol intake: never substance use type: does not use caffeine: Yes what type of physical activity do you participate in: none seatbelt use: always do you feel safe at home: Yes additional social history: [facility] SUN EXPOSURE: FREQUENTLY ROS Constitutional Constitutional: Denies fatigue, fever(s), poor appetite, weight gain or weight loss Gastrointestinal Gastrointestinal: Denies belching, bloating, change in bowel habits, change in stool character, chewing difficulty, coffee ground emesis, constipation, cramping, diarrhea, dyspepsia, dysphagia, early satiety, excessive flatus, fecal incontinence, heartburn, hematemesis, hematochezia, hemorrhoids, loose stools, melena, nausea, odynophagia, rectal bleeding, tenesmus, vomiting or weight changes Vital Signs Vital Signs Vital Signs: 12/17/24 06:25 12/17/24 06:25 12/17/24 06:31 Temperature 97 F L 97 F L Temperature Source Temporal Pulse Rate 69 69 Respiratory Rate 16 16 Respiratory Pattern Normal Blood Pressure 117/64 117/64 Blood Pressure Mean 81 Blood Pressure Source Monitor Blood Pressure Position Semi-Fowlers Blood Pressure Location Right Arm Pulse Ox 100 100 Oxygen Delivery Method Room Air Weight Weight: 196 lb Body Mass Index (BMI) 31.6 Physical Exam Const alert, oriented x3, no apparent distress and healthy appearing General Appearance: cooperative GI normal to inspection, nondistended, normoactive bowel sounds, soft to palpation, non-tender and non-distended Percussion: normal to percussion Rectal Exam: deferred Assessment & Plan Assessment/Plan (1) Abdominal pain: (2) GI bleed: PLAN: ROS Const Constitutional: Positive for fatigue; No fever(s) or weight change ENT ENT: Positive for difficulty swallowing Gastro GI: Positive for bloating, cramping, diarrhea, heartburn, difficulty swallowing, excessive flatus and nausea/dyspepsia; No abdominal pain, belching, change in bowel habits, change in stool character, coffee ground emesis, constipation, feeling full early, incontinent of stools, Vomiting blood/hematemesis, Blood in stool, loose stools, Black,tarry stools, pain with swallowing, vomiting or other Musc Musculoskeletal: Positive for back pain, muscle cramps, stiffness and Arthritis; No joint pain Skin Skin: Positive for dry skin; No yellowing of the eye or itchy eyes Neuro Neurology: Positive for dizziness Psych Psychiatric: No anxiety and No depression Endo Endocrine: Positive for fatigue; No weight change Aller/Imm Allergy/Immunologic: No itchy eyes Rodolfo/Lymp Hematologic/Lymphatic: No easy bleeding or easy bruising Exam Const General: cooperative, healthy appearing and comfortable Orientation: alert HENMT Head: normal to inspection Eyes General: appearance normal, both eyes and all related structures Neck Neck: normal visual inspection Chest Chest palpation & inspection: normal inspection of the chest Resp Effort & Inspection: normal respiratory effort Cardio Rate: regular rate Rhythm: regular rhythm GI Inspection: normal to inspection Auscultation: normal bowel sounds Palpation: soft and nontender Assessment and Plan Assessment and Plan (1) Abdominal pain: Status: Acute Plan: Georgia is a 79 yo female pt here today for f/u after having dark stools x 2 weeks. Pt has had this complaints in the past and underwent EGD in Mar 2024 which showed a small hiatal hernia, irregular z-line, a gastric polyp, and erythematous gastric mucosa. No source of GI bleeding was identified and hgb remained stable. Pt endorses continued symptoms of abd cramping, epigastric pain, and nausea. SHe continues with PPI daily. PCP refilled Carafate however she has not yet started this. I will order stool testing to rule out infection, inflammation or blood in her stool. Last colonoscopy was in 2022 which was failed due to poor prep and recommend to repeat. This has not yet be completed. Due to symptoms and recommendation to repeat endoscopy, she will undergo colonoscopy. Since she continued to epigastric pain she will have EGD at the same time. -Continue PPI -Start Carafate -Stool testing -EGD and colonoscopy -f/u after procedures (2) Dark stools: Status: Acute Orders: Orders Calprotectin, Stool Today R10.9 - Unspecified abdominal pain, R19.5 - Other fecal abnormalities ENTERIC PATHOGEN PANEL STOOL Today K58.9 - Irritable bowel syndrome, unspecified, R10.9 - Unspecified abdominal pain, R19.5 - Other fecal abnormalities CDIFF (PCR) Today R10.9 - Unspecified abdominal pain, R19.5 - Other fecal abnormalities Stool Occult Blood iFOB Today R10.9 - Unspecified abdominal pain, R19.5 - Other fecal abnormalities Pancreatic Elastase, Fecal Today R10.9 - Unspecified abdominal pain, R19.5 - Other fecal abnormalities OVA+PARA w/Giardia EIA [id number] Today R10.9 - Unspecified abdominal pain, R19.5 - Other fecal abnormalities
--- NOTE | 2024-12-17 07:00 | COLBX_PTH ---
PATIENT: VINAY TALAVERA LOC: EN U#:[id number] AGE/SX: 79/F ROOM: RE12/17/[address]: Dr. Moustapha Stanley DO : 1945 BED: DIS: 12/17/2024 SPEC #: [id number] RECD: 12/17/24 10:20 STATUS: VIVEK SHELIA #: [id number] KATHY: 12/17/24 07:[address]: Moustapha Stanley DEPT: SURGICAL PATHOLOGY RECD BY: Kurt Woody ENTERED: 12/17/24 13:19 SP TYPE: COLON BX OTHR DR: Dr. Eboni Katz MD Tissues: A - Pyloric sphincter B - Cecum, NOS C - Sigmoid colon biopsy D - Rectum, NOS Procedures: Immunohistochemical Stains Surgery Specimen Level IV HEADER OPERATION: Colonoscopy, EGD with biopsy, polypectomy PRE-OP DIAGNOSIS: Abdominal pain, GI bleed TISSUE SUBMITTED: A- Pyloric sphincter ulcer, B- Cecum polyp, C- Sigmoid colitis, D- Rectal colitis MICROSCOPIC DIAGNOSIS A. Pyloric sphincter, biopsy: - Gastric mucosa with active chronic gastritis. - IHC negative for H.pylori organisms. B. Cecum, polyp, biopsy: - Tubular adenoma (one fragment). - Hyperplastic polyp (one fragment). C. Sigmoid colon, biopsy: - Focal active colitis - see Comment. D. Rectum, biopsy: - Focal active colitis - see Comment. COMMENT C, D) Focal mild acute inflammation is noted without features of chronicity. This is a nonspecific finding which may result from bowel prep artifact, mild infection, medication injury (eg: NSAIDs) and ischemia. Recommend correlation with clinical and endoscopic findings. MICROSCOPIC DESCRIPTION Slides are reviewed. ?All matched controls reacted appropriately. These tests were developed and their performance characteristics determined by [facility]. They may not have been cleared or approved by the U.[place]. Food and Drug Administration. The FDA has determined that such clearance or approval is not necessary.? The above immunohistochemical?markers and/or special stains have been reviewed by the Pathologist. GROSS DESCRIPTION A. Received in fixative is one container labeled with the patient's name and designated Pyloric sphincter ulcer. The specimen consists of two irregular fragments of light amin soft tissue, each measuring 0.4 cm. The specimen is totally submitted in one cassette. B. Received in fixative is one container labeled with the patient's name and designated Cecum polyp. The specimen consists of two irregular fragments of light amin soft tissue, each measuring 0.4 cm. The specimen is totally submitted in one cassette. C. Received in fixative is one container labeled with the patient's name and designated Sigmoid colitis. The specimen consists of four irregular fragments of light amin soft tissue that measure <0.1 to 0.4 cm. Smaller fragments may not survive processing. The specimen is totally submitted in one cassette. D. Received in fixative is one container labeled with the patient's name and designated Rectal colitis. The specimen consists of one irregular fragment of light main soft tissue that measures 0.5 cm. The specimen is totally submitted in one cassette. MN 12/17/2024 CPT:64886n8 ,[id number]
[2024-12-17] MEDS: Lactated Ringers 500 ML IV (07:16)
--- NOTE | 2024-12-17 08:00 | OP.EGD_ITS ---
Patient Name: Georgia Ro Procedure Date: 12/17/2024 7:11 AM Date of : 1945 Age: 79 Procedure: Upper GI endoscopy Indications: Epigastric abdominal pain, Abdominal pain in the left upper quadrant, Abdominal pain in the left lower quadrant, Acute post hemorrhagic anemia, Melena Providers: Moustapha Stanley DO Referring MD: Eboni Katz MD Medicines: Monitored Anesthesia Care Patient Profile: This is a 79 year old female. Refer to note in patient chart for documentation of history and physical. Patient has symptoms of acute left upper quadrant abdominal pain, acute left lower quadrant abdominal pain and acute epigastric abdominal pain. Complications: No immediate complications. Procedure: Pre-Anesthesia Assessment: - Prior to the procedure, a History and Physical was performed, and patient medications and allergies were reviewed. The patient is competent. The risks and benefits of the procedure and the sedation options and risks were discussed with the patient. All questions were answered and informed consent was obtained. Patient identification and proposed procedure were verified by the physician in the pre-procedure area. Mental Status Examination: alert and oriented. Airway Examination: normal oropharyngeal airway and neck mobility. Respiratory Examination: clear to auscultation. CV Examination: normal. Prophylactic Antibiotics: The patient does not require prophylactic antibiotics. Prior Anticoagulants: The patient has taken no anticoagulant or antiplatelet agents except for NSAID medication. ASA Grade Assessment: II - A patient with mild systemic disease. After reviewing the risks and benefits, the patient was deemed in satisfactory condition to undergo the procedure. The anesthesia plan was to use monitored anesthesia care (MAC). Immediately prior to administration of medications, the patient was re-assessed for adequacy to receive sedatives. The heart rate, respiratory rate, oxygen saturations, blood pressure, adequacy of pulmonary ventilation, and response to care were monitored throughout the procedure. The physical status of the patient was re-assessed after the procedure. After obtaining informed consent, the endoscope was passed under direct vision. Throughout the procedure, the patient's blood pressure, pulse, and oxygen saturations were monitored continuously. The Colonoscope was introduced through the mouth, and advanced to the third part of the duodenum. Small bowel enteroscopy was deemed necessary. The upper GI endoscopy was accomplished without difficulty. The patient tolerated the procedure well. Scope In: 7:23:51 AM Scope Out: 7:27:25 AM Total Procedure Duration Time 0 hours 3 minutes 34 seconds Findings: The examined esophagus was normal. One non-bleeding linear gastric ulcer with no stigmata of bleeding was found at the pylorus. The lesion was 5 mm in largest dimension. Biopsies were taken with a cold forceps for Helicobacter pylori testing. Biopsies were taken with a cold forceps for histology. Verification of patient identification for the specimen was done. Estimated blood loss was minimal. The examined duodenum was normal. Impression: - Normal esophagus. - Non-bleeding gastric ulcer with no stigmata of bleeding. Biopsied. - Normal examined duodenum. Recommendation: - Discharge patient to home. - Resume previous diet. - Continue present medications. - Await pathology results. Procedure Code(s): --- Professional --- 44005, Small intestinal endoscopy, enteroscopy beyond second portion of duodenum, not including ileum; with biopsy, single or multiple CPT copyright 2021 [employer]. All rights reserved. The codes documented in this report are preliminary and upon inorganic chemistry teacher review may be revised to meet current compliance requirements. Moustapha Stanley DO 12/17/2024 8:00:23 AM This report has been signed electronically. Number of Addenda: 0 Note Initiated On: 12/17/2024 7:11 AM
--- NOTE | 2024-12-17 08:00 | OP.PROVAT_ITS ---
12/17/2024 Eboni Katz MD [address] [place] [address] [place] [address] Re : Upper GI endoscopy procedure for Georgia Ro Dear Dr. Katz This procedure was performed on Tuesday, December 17, 2024. My impressions and recommendations are as follows: Impressions : - Normal esophagus. - Non-bleeding gastric ulcer with no stigmata of bleeding. Biopsied. - Normal examined duodenum. Recommendations : - Discharge patient to home. - Resume previous diet. - Continue present medications. - Await pathology results. My findings are described in the full procedure note, which is enclosed. If I can be of further assistance, please feel free to contact me at . Sincerely, Moustapha Stanley, 12/17/2024 8:00:23 AM This report has been signed electronically.
--- NOTE | 2024-12-17 08:02 | PCM.POST.ANE ---
Anesthesia: Postop Eval I Current Vital Signs Temperature: 97.8 F Pulse Rate: 61 Blood Pressure: 86/64 Respiratory Rate: 18 Pulse Ox: 99 Oxygen Delivery Method: Room Air Assessment Airway patent: Yes Spontaneous unlabored respirations: Yes Mental status: Awake nausea: No Vomiting: No Anesthesia Complication: No Fluid Hydration Crystalloid volume administer (ml): 500 Total IV fluid infused: 500 Progress Note Anesthesia document: Postop Eval 1 completed: Yes
--- NOTE | 2024-12-17 08:06 | OP.PROVAT_ITS ---
12/17/2024 Eboni Katz MD [address] [place] [address] [place] [address] Re : Colonoscopy procedure for Georgia Ro Dear Dr. Katz This procedure was performed on Tuesday, December 17, 2024. My impressions and recommendations are as follows: Impressions : - Diverticulosis in the recto-sigmoid colon, in the sigmoid colon and in the descending colon. - Segmental moderate inflammation was found in the rectum and in the sigmoid colon secondary to colitis. - Two 8 mm polyps in the cecum, removed with a jumbo cold forceps. Resected and retrieved. Recommendations : - Repeat colonoscopy in 5 years for surveillance. - Continue present medications. My findings are described in the full procedure note, which is enclosed. If I can be of further assistance, please feel free to contact me at . Sincerely, Moustapha Stanley, 12/17/2024 8:05:49 AM This report has been signed electronically.
--- NOTE | 2024-12-17 08:06 | OP.COLON_ITS ---
Patient Name: Georgia Ro Procedure Date: 12/17/2024 7:27 AM Date of : 1945 Age: 79 Procedure: Colonoscopy Indications: Hematochezia Providers: Moustapha Stanley DO Referring MD: Eboni Katz MD Medicines: Monitored Anesthesia Care Patient Profile: This is a 79 year old female. Refer to note in patient chart for documentation of history and physical. Patient has symptoms of acute left upper quadrant abdominal pain, acute left lower quadrant abdominal pain and acute epigastric abdominal pain. Last Colonoscopy: several years ago. Complications: No immediate complications. Procedure: Pre-Anesthesia Assessment: - Prior to the procedure, a History and Physical was performed, and patient medications and allergies were reviewed. The patient is competent. The risks and benefits of the procedure and the sedation options and risks were discussed with the patient. All questions were answered and informed consent was obtained. Patient identification and proposed procedure were verified by the physician in the pre-procedure area. Mental Status Examination: alert and oriented. Airway Examination: normal oropharyngeal airway and neck mobility. Respiratory Examination: clear to auscultation. CV Examination: normal. Prophylactic Antibiotics: The patient does not require prophylactic antibiotics. Prior Anticoagulants: The patient has taken no anticoagulant or antiplatelet agents except for NSAID medication. ASA Grade Assessment: II - A patient with mild systemic disease. After reviewing the risks and benefits, the patient was deemed in satisfactory condition to undergo the procedure. The anesthesia plan was to use monitored anesthesia care (MAC). Immediately prior to administration of medications, the patient was re-assessed for adequacy to receive sedatives. The heart rate, respiratory rate, oxygen saturations, blood pressure, adequacy of pulmonary ventilation, and response to care were monitored throughout the procedure. The physical status of the patient was re-assessed after the procedure. After I obtained informed consent, the scope was passed under direct vision. Throughout the procedure, the patient's blood pressure, pulse, and oxygen saturations were monitored continuously. The Colonoscope was introduced through the anus and advanced to the terminal ileum. The colonoscopy was performed without difficulty. The patient tolerated the procedure well. Scope In: 7:29:01 AM Scope Out: 7:54:14 AM Total Procedure Duration Time 0 hours 25 minutes 13 seconds Findings: The perianal and digital rectal examinations were normal. Multiple small and large-mouthed diverticula were found in the recto-sigmoid colon, sigmoid colon and descending colon. Segmental moderate inflammation characterized by congestion (edema), erythema, friability and granularity was found in the rectum and in the sigmoid colon. Two sessile polyps were found in the cecum. The polyps were 8 mm in size. These polyps were removed with a jumbo cold forceps. Resection and retrieval were complete. Verification of patient identification for the specimen was done. Estimated blood loss was minimal. Impression: - Diverticulosis in the recto-sigmoid colon, in the sigmoid colon and in the descending colon. - Segmental moderate inflammation was found in the rectum and in the sigmoid colon secondary to colitis. - Two 8 mm polyps in the cecum, removed with a jumbo cold forceps. Resected and retrieved. Recommendation: - Repeat colonoscopy in 5 years for surveillance. - Continue present medications. Procedure Code(s): --- Professional --- 21146, Colonoscopy, flexible; with biopsy, single or multiple CPT copyright 2021 [employer]. All rights reserved. The codes documented in this report are preliminary and upon histologic technician review may be revised to meet current compliance requirements. Moustapha Stanley DO 12/17/2024 8:05:49 AM This report has been signed electronically. Number of Addenda: 0 Note Initiated On: 12/17/2024 7:27 AM
--- NOTE | 2024-12-17 08:37 | POSTOPAN2_ITS ---
Anesthesia Postop Eval I Sum Postop Eval Completion status Anesthesia document: Postop Eval 1 completed: Yes Anesthesia Postop Eval I Summary Anesthesia Postop Eval I Summary: Anesthesia Postop Eval I: Assessment Summary Airway patent Yes 12/17/24 08:02 BUSINESS PROCESS CONSULTANT.ACAR Spontaneous unlabored Yes 12/17/24 08:02 BUSINESS PROCESS CONSULTANT.ACAR respirations Mental status Awake 12/17/24 08:02 BUSINESS PROCESS CONSULTANT.ACAR nausea No 12/17/24 08:02 BUSINESS PROCESS CONSULTANT.ACAR Vomiting No 12/17/24 08:02 BUSINESS PROCESS CONSULTANT.ACAR Anesthesia Postop Eval I: Fluid Summary Crystalloid volume administer 500 12/17/24 08:02 BUSINESS PROCESS CONSULTANT.ACAR (ml) Colloids volume administered ( ml) Blood Product volume administered (ml) Total IV fluid infused 500 12/17/24 08:02 BUSINESS PROCESS CONSULTANT.ACAR Anesthesia Postop Eval I: Summary Notes Anesthesia Complication No 12/17/24 08:02 BUSINESS PROCESS CONSULTANT.ACAR Anesthesia Complication Comment: Post-operative progress note Anesthesia: Postop Eval II Evaluation Mental status: Awake Pain Level: 0 nausea: No Vomiting: No
--- NOTE | 2024-12-17 08:37 | PCM.POSTANE2 ---
Anesthesia Postop Eval I Sum Postop Eval Completion status Anesthesia document: Postop Eval 1 completed: Yes Anesthesia Postop Eval I Summary Anesthesia Postop Eval I Summary: Anesthesia Postop Eval I: Assessment Summary Airway patent Yes 12/17/24 08:02 PROGRAMMER ENGINEERING AND SCIENTIFIC.ACAR Spontaneous unlabored Yes 12/17/24 08:02 PROGRAMMER ENGINEERING AND SCIENTIFIC.ACAR respirations Mental status Awake 12/17/24 08:02 PROGRAMMER ENGINEERING AND SCIENTIFIC.ACAR nausea No 12/17/24 08:02 PROGRAMMER ENGINEERING AND SCIENTIFIC.ACAR Vomiting No 12/17/24 08:02 PROGRAMMER ENGINEERING AND SCIENTIFIC.ACAR Anesthesia Postop Eval I: Fluid Summary Crystalloid volume administer 500 12/17/24 08:02 PROGRAMMER ENGINEERING AND SCIENTIFIC.ACAR (ml) Colloids volume administered ( ml) Blood Product volume administered (ml) Total IV fluid infused 500 12/17/24 08:02 PROGRAMMER ENGINEERING AND SCIENTIFIC.ACAR Anesthesia Postop Eval I: Summary Notes Anesthesia Complication No 12/17/24 08:02 PROGRAMMER ENGINEERING AND SCIENTIFIC.ACAR Anesthesia Complication Comment: Post-operative progress note Anesthesia: Postop Eval II Evaluation Mental status: Awake Pain Level: 0 nausea: No Vomiting: No
== END 2024-12-17 08:46 | disposition home or self-care (01) ==
LOC: EN 05:34 → AC 05:34
PROVIDERS: PCP Internal Medicine; Referring Provider Internal Medicine; Visit Provider Internal Medicine Gastroenterology
PROC: 0DJD8ZZ Inspection of Lower Intestinal Tract, Via Natural or Artificial Opening Endoscopic (ICD-10-PCS; CPT 45378; principal; 2024-12-17 06:55)
DX: K29.51 Unspecified chronic gastritis with bleeding (principal); E11.9 Type 2 diabetes mellitus without complications; K57.31 Diverticulosis of large intestine without perforation or abscess with bleeding; D12.0 Benign neoplasm of cecum; K52.89 Other specified noninfective gastroenteritis and colitis; K25.9 Gastric ulcer, unspecified as acute or chronic, without hemorrhage or perforation; I10 Essential (primary) hypertension; E66.9 Obesity, unspecified; Z68.31 Body mass index [BMI] 31.0-31.9, adult; Z79.82 Long term (current) use of aspirin; Z79.84 Long term (current) use of oral hypoglycemic drugs; Z79.899 Other long term (current) drug therapy
CPT/HCPCS: 45380; 43239; 88305; 88342

== ENCOUNTER 2025-02-28 09:30 | Day surgery (SDC) | payer MEDICARE, SELFPAY ==
--- NOTE | 2025-02-24 14:47 | PAT.ANESEVAL ---
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 When Was Last Pacemaker Check QUESTION #4 FULL TEXT: You/Your Family Experience fever (hyperthermia) with Anesthesia Last Oral Intake Last Oral intake: Last Oral Intake NPO since Meds taken in AM with sips of water? 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 - telegraph office manager: PONV - telegraph office manager Female Yes 02/24/25 13:59 HX of Motion Sickness No 02/24/25 13:59 HX of N/V After Surgery Yes 02/24/25 13:59 Non-Smoker Yes 02/24/25 13:59 Duration of Surgery greater No 02/24/25 13:59 than 60 minutes Number of Risk Factors 3 02/24/25 13:59 PONV Score Moderate Risk 02/24/25 13:59 Height & Weight Height & Weight: Anesthesia: Height & Weight Height 5 ft 6 in 12/27/24 10:58 Respiratory Assessment Respiratory Assessment - telegraph office manager: Respiratory Tract Infection Hx - telegraph office manager Hx Respiratory Tract Infection No 02/24/25 13:59 STOP Sleep Apnea STOP Sleep Apnea - telegraph office manager: STOP Sleep Apnea - telegraph office manager Hx Hypertension Yes: PER PT, CONTROLLED ON 02/24/25 13:59 MEDS Hx Sleep Apnea No 02/24/25 13:59 CPAP No 02/24/25 13:59 BIPAP No 02/24/25 13:59 Do you snore loudly (louder No 02/24/25 13:59 than talking or can be heard Do you often feel tired/ No 02/24/25 13:59 fatigued/ sleepy during daytime? Has anyone observed you stop No 02/24/25 13:59 breathing during sleep? STOP Results Negative 02/24/25 13:59 QUESTION #5 FULL TEXT : Do you snore loudly (louder than talking or can be heard through closed doors)? 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 Specify any problems Hx of Preganancy in last 3 No 02/24/25 13:59 Months Nurse Filling Out Transfusion JENNIFER 02/24/25 13:59 & Questions: Date: 02/24/25 02/24/25 13:59 Time: 14:01 02/24/25 13:59 Patient unable to answer at this time (ie. confused, unrespo /Reproduction History /Reproductive History - telegraph office manager: /Reproductive Hx- telegraph office manager Hx Now No 02/24/25 13:59 Gestational Age (in weeks): EDC: Hx Hx Para Hx Section SAB No 02/24/25 13:59 Does the father of the baby or his family experience fever w Father of the baby Malignant Hypertension history comment [facility] Medical History (Updated 02/24/25 @ 14:06 by Marry Steiner) Hypertension Encounter for immunization Overactive bladder Colitis Bladder disease Difficulty swallowing History of hiatal hernia Gastric reflux History of stress test Osteopenia PONV (postoperative nausea and vomiting) GI bleed Dark stools Left renal mass Abnormal CT of the abdomen Dupuytren contracture of right hand LLQ pain Obesity (BMI 30-39.9) Small lymphocytic lymphoma Wears glasses Wears partial dentures Wears dentures Seasonal allergies Non-smoker Sinusitis GERD (gastroesophageal reflux disease) Borderline type 2 diabetes mellitus Right hand pain Hyperglycemia Chronic sinusitis Shortness of breath Bilateral lower extremity edema Flu vaccine need Health care maintenance Tinnitus H/O tinnitus Chronic vertigo Cataracts, bilateral Back problem Actinic keratosis Cancer of skin of left ear Dupuytren's contracture Open cat bite of hand Cat bite of right hand with infection Restless leg syndrome Arthritis Vertigo High cholesterol Chronic hypertension Generalized osteoarthritis Home Medications Medication Instructions Recorded Last Taken Type multivitamin with iron 1 tab PO DAILY 03/31/13 03/28/24 History biotin 2,500 mcg capsule 2,500 mcg PO ONCE 07/15/17 03/28/24 History celecoxib 200 mg capsule (Celebrex) 200 mg PO DAILY PRN pain #90 caps 09/16/23 03/28/24 Rx hydrochlorothiazide 25 mg tablet See Rx Instructions .Route 06/28/24 Unknown Rx .COMPLEX #90 tabs ropinirole 0.5 mg tablet 0.5 mg PO TID #360 tabs 06/28/24 12/17/24 Rx losartan 100 mg tablet 100 mg PO DAILY 3 months #90 tabs 09/06/24 12/17/24 Rx oxybutynin chloride 10 mg 10 mg PO QDAY #90 tabs 09/06/24 Unknown Rx tablet,extended release 24 hr amlodipine 5 mg tablet 7.5 mg (1.5 x 5 mg) PO DAILY 3 09/20/24 12/17/24 Rx months #135 tabs aspirin 81 mg tablet 81 mg PO QDAY 10/27/24 12/09/24 History Held on 02/24/25. Instructions: ON HOLD FOR EGD 02/25/25 pantoprazole 40 mg tablet,delayed 40 mg PO BID #180 tabs 10/27/24 12/17/24 Rx release budesonide 3 mg 9 mg (3 x 3 mg) PO QAM 8 weeks 01/07/25 Unknown Rx capsule,delayed,extended release #168 ea pen needle, diabetic 29 gauge x #100 ea 01/31/25 Unknown Rx 1/2" (Comfort EZ Pen [place]) potassium chloride 20 mEq 20 meq PO BID #180 tabs 01/31/25 Unknown Rx tablet,extended release tirzepatide (weight loss) 5 mg/0.5 5 mg (0.5 mL) subcut QWEEK 3 02/21/25 02/16/25 Rx mL subcutaneous solution months #6.5 mL ondansetron 4 mg disintegrating 4 mg PO Q8H PRN nausea and vomiting 02/24/25 Unknown History tablet Allergy/AdvReac Type Severity Reaction Status Date / Time lisinopril (From Zestril) AdvReac Intermediate Cough Verified 02/24/25 13:53 hydrocodone bitartrate (From AdvReac Mild Itching Verified 02/24/25 13:53 Vicodin) Family History Father Myocardial infarction Heart disease Hypertension Mother Breast cancer Grandmother Breast cancer Sister Lung cancer Seizures Surgical History History of surgical removal of skin lesion History of lymph node excision History of left knee replacement History of colonoscopy History of lymph node biopsy History of cataract extraction H/O vaginal hysterectomy History of hysterectomy Cancer of skin of left ear Cat bite of right hand including fingers with infection Dupuytren contracture cancer removed S/P appendectomy S/P arthroscopy of knee History of total right knee replacement Social History Smoking Status: Never smoker alcohol intake: never substance use type: does not use caffeine: Yes what type of physical activity do you participate in: none seatbelt use: always do you feel safe at home: Yes additional social history: [employer]- [employer] SUN EXPOSURE: FREQUENTLY Audit: Pertinent Findings Pertinent Findings EKG Perinent findings: Normal sinus rhythm Normal ECG Confirmed by Manuel Roe ([id number]), editor school photograph RORO FAITH ([id number]) on 02/25/2024 1:06:54 PM Stress test pertinent findings: 11/2024: Negative stress test Recommendation Anesthesia Recommendation Anesthesia recommendation: OPTIMIZED for anesthesia
[2025-02-28] VITALS (8 sets, daily range): BP systolic 78–113; BP diastolic 46–92; PULSE 68–80; RESP 16; TEMP 36.1; O2SAT 95–100; BMI 30.2
--- NOTE | 2025-02-28 09:44 | PCM.HP.STD ---
HPI - General General Date of Admission: 02/28/25 Date of Service: 02/28/25 Chief Complaint: Gastric ulcer HPI Narrative GEORGIA TALAVERA, is a 79 F who presents for surveillance of gastric ulcer [facility] established 02.27.24 with complaints of burning esophageal/epigastric pain, nausea and black stools. Presented to the ED with these symptoms and was discharged on Pantoprazole 40 mg BID and Carafate 1 gram bid. Last EGD [address] abdomen pelvis 02.24.24; Findings which may be consistent with nonspecific gastritis.. Hyperdense left renal nodule consistent with hemorrhagic cyst unchanged since previous study No evidence for small bowel obstruction or other acute abnormality post hysterectomy and appendectomy EGD 03.29.24; - Z-line irregular, 39 cm from the incisors. Biopsied. - Small hiatal hernia. - A single gastric polyp. - Erythematous mucosa in the gastric body. Biopsied. - No gross lesions in the first portion of the duodenum. Biopsied. *06.02.24 office contacted due to black stools and continued pain. CBC wnl, KUB showing constipation, FOBT negative OV 225; Pt continues to have daily burning epigastric pain. She endorses nausea, bloating and constipation. She continues with pantoprazole once daily. SHe does not feel like the PPI or Carafate has helped with her symptoms. She feels her symptoms may be related to her gallbladder. She is also having constipation with small hard bm daily. SHe takes Benefiber daily. OV 7..25 Pt with black stools x2 weeks. They are intermittently black. Alternating between soft and normal stools. SHe continue to have lower abd cramping, epigastric pain and nausea. She has not noticed these symptoms being particularly worss than usual. Continues with PPI daily. PCP refilled Carafate however she has not yet started it. EGD 12.17.24- Normal esophagus. - Non-bleeding gastric ulcer with no stigmata of bleeding. Biopsied. - Normal examined duodenum. Colonoscopy Diverticulosis in the recto-sigmoid colon, in the sigmoid colon and in the descending colon. - Segmental moderate inflammation was found in the rectum and in the sigmoid colon secondary to colitis. - Two 8 mm polyps in the cecum, removed with a jumbo cold forceps. Resected and retrieved. OV 01.07.25 patient here to review results of endoscopy. Patient continues to have nausea after meals. Heartburn is controlled with pantoprazole twice a day. Patient having up to 3 bowel movements per day that are soft And foul-smelling. She has lower abdominal cramping prior to bowel movements, during and after. ] [facility] Medical History Hypertension Encounter for immunization Overactive bladder Colitis Bladder disease Difficulty swallowing History of hiatal hernia Gastric reflux History of stress test Osteopenia PONV (postoperative nausea and vomiting) GI bleed Dark stools Left renal mass Abnormal CT of the abdomen Dupuytren contracture of right hand LLQ pain Obesity (BMI 30-39.9) Small lymphocytic lymphoma Wears glasses Wears partial dentures Wears dentures Seasonal allergies Non-smoker Sinusitis GERD (gastroesophageal reflux disease) Borderline type 2 diabetes mellitus Right hand pain Hyperglycemia Chronic sinusitis Shortness of breath Bilateral lower extremity edema Flu vaccine need Health care maintenance Tinnitus H/O tinnitus Chronic vertigo Cataracts, bilateral Back problem Actinic keratosis Cancer of skin of left ear Dupuytren's contracture Open cat bite of hand Cat bite of right hand with infection Restless leg syndrome Arthritis Vertigo High cholesterol Chronic hypertension Generalized osteoarthritis Home Medications Medication Instructions Recorded Last Taken Type multivitamin with iron 1 tab PO DAILY 03/31/13 03/28/24 History biotin 2,500 mcg capsule 2,500 mcg PO ONCE 07/15/17 03/28/24 History celecoxib 200 mg capsule (Celebrex) 200 mg PO DAILY PRN pain #90 caps 09/16/23 03/28/24 Rx hydrochlorothiazide 25 mg tablet See Rx Instructions .Route 06/28/24 Unknown Rx .COMPLEX #90 tabs ropinirole 0.5 mg tablet 0.5 mg PO TID #360 tabs 06/28/24 12/17/24 Rx losartan 100 mg tablet 100 mg PO DAILY 3 months #90 tabs 09/06/24 12/17/24 Rx oxybutynin chloride 10 mg 10 mg PO QDAY #90 tabs 09/06/24 Unknown Rx tablet,extended release 24 hr amlodipine 5 mg tablet 7.5 mg (1.5 x 5 mg) PO DAILY 3 09/20/24 12/17/24 Rx months #135 tabs aspirin 81 mg tablet 81 mg PO QDAY 10/27/24 12/09/24 History Held on 02/24/25. Instructions: ON HOLD FOR EGD 02/25/25 pantoprazole 40 mg tablet,delayed 40 mg PO BID #180 tabs 10/27/24 12/17/24 Rx release budesonide 3 mg 9 mg (3 x 3 mg) PO QAM 8 weeks 01/07/25 Unknown Rx capsule,delayed,extended release #168 ea pen needle, diabetic 29 gauge x #100 ea 01/31/25 Unknown Rx 1/2" (Comfort EZ Pen [place]) potassium chloride 20 mEq 20 meq PO BID #180 tabs 01/31/25 Unknown Rx tablet,extended release tirzepatide (weight loss) 5 mg/0.5 5 mg (0.5 mL) subcut QWEEK 3 02/21/25 02/16/25 Rx mL subcutaneous solution months #6.5 mL ondansetron 4 mg disintegrating 4 mg PO Q8H PRN nausea and vomiting 02/24/25 Unknown History tablet Allergy/AdvReac Type Severity Reaction Status Date / Time lisinopril (From Zestril) AdvReac Intermediate Cough Verified 02/24/25 13:53 hydrocodone bitartrate (From AdvReac Mild Itching Verified 02/24/25 13:53 Vicodin) Family History Father Myocardial infarction Heart disease Hypertension Mother Breast cancer Grandmother Breast cancer Sister Lung cancer Seizures Surgical History History of surgical removal of skin lesion History of lymph node excision History of left knee replacement History of colonoscopy History of lymph node biopsy History of cataract extraction H/O vaginal hysterectomy History of hysterectomy Cancer of skin of left ear Cat bite of right hand including fingers with infection Dupuytren contracture cancer removed S/P appendectomy S/P arthroscopy of knee History of total right knee replacement Social History Smoking Status: Never smoker alcohol intake: never substance use type: does not use caffeine: Yes what type of physical activity do you participate in: none seatbelt use: always do you feel safe at home: Yes additional social history: - Manuel SUN EXPOSURE: FREQUENTLY ROS Constitutional Constitutional: Denies fatigue, fever(s), poor appetite, weight gain or weight loss Gastrointestinal Gastrointestinal: Denies belching, bloating, change in bowel habits, change in stool character, chewing difficulty, coffee ground emesis, constipation, cramping, diarrhea, dyspepsia, dysphagia, early satiety, excessive flatus, fecal incontinence, heartburn, hematemesis, hematochezia, hemorrhoids, loose stools, melena, nausea, odynophagia, rectal bleeding, tenesmus, vomiting or weight changes Physical Exam Const alert, oriented x3, no apparent distress and healthy appearing General Appearance: cooperative GI normal to inspection, nondistended, normoactive bowel sounds, soft to palpation, non-tender and non-distended Percussion: normal to percussion Rectal Exam: deferred Assessment & Plan Assessment/Plan (1) Nausea: (2) Gastric ulcer: PLAN: Assessment and Plan Assessment and Plan (1) GERD (gastroesophageal reflux disease): Status: Chronic Plan: Georgia is a 79-year-old female patient here today for follow-up after upper and lower endoscopy. EGD showing normal esophagus, gastric ulcer and normal duodenum. Colonoscopy showing 2 polyps, inflammation in the rectum and sigmoid colon. Pathology with hyperplastic and tubular adenomas. Biopsies from the rectum and sigmoid with focal active colitis with comment noting that it may be related to bowel prep, medication or ischemic colitis. Prior to the colonoscopy patient had an elevated calprotectin therefore do not believe the focal active inflammation was prep induced. She does take aspirin daily but no other NSAIDs. She continues to have softer stools that are foul-smelling. Will treat her with a course of budesonide 9 mg daily for 8 weeks. Patient was agreeable. Zofran sent for as needed use. Recommended gastric emptying study for her nausea after meals however she declined at this time. She will continue PPI. - Reviewed results - Continue PPI - Repeat EGD in 3 months to ensure healing of gastric ulcer - Start budesonide 9 mg daily for 8 weeks - Zofran as needed - Follow-up in 3 months (2) Gastric ulcer: Status: Acute (3) Nausea: Status: Acute Medications: New ondansetron 4 mg PO Q8H [address]-ER 9 mg (3 x 3 mg) PO QAM 168 ea 0RF 8 weeks
[2025-02-28] MEDS: Lactated Ringers 1,000 ML 15 ML IV (10:01)
--- NOTE | 2025-02-28 10:13 | PRE.ANES_ITS ---
ASA Classification* ASA Classification ASA Classification: 2 (MAURISIO, HTN, GERD ) Assessment & Plan Anesthesia* Anesthesia Assessment Anesthesia Assessment: Discussed sedation and/or anesthesia options, risks, benefits, and alternatives with patient/parents/legal guardian/POA. Questions invited. The patient/parents/legal guardian/POA seems to understand and agrees to proceed with anesthesia plan. Reviewed the physical assessment, medical history, allergy history and patient home medications list prior to surgery/procedure/anesthetic and documented any changes. Performed airway and anesthesia risk assessments. Anesthesia Type Anesthesia Type: MAC History Source History Obtained from:: Patient and Chart Anesthesia Focused Assessment* Temperature: 97.0 F Pulse Rate: 71 Blood Pressure: 113/63 Respiratory Rate: 16 Pulse Ox: 100 Oxygen Delivery Method: Room Air Airway Assessment Mouth opens: >3 cm Mallampati Score: III Neck Range of motion (ROM): Full ROM Labs Anesthesia Preop lab: CBC WBC, (4.4-11.0) 6.3 K/mm3 12/27/24, 09:59 RBC, (4.2-5.4) 4.38 M/mm3 12/27/24, 09:59 Hgb, (12.0-15.0) 13.3 g/dL 12/27/24, 09:59 Hct, (37-47) 39.0 % 12/27/24, 09:59 Plt Count, (150-450) 208 K/mm3 12/27/24, 09:59 CHEMISTRY Potassium, (3.3-5.1) 4.4 mmol/L 12/27/24, :59 Sodium, (133-145) 139 mmol/L 12/27/24, 09:59 Magnesium, (1.6-2.6) 1.7 mg/dL 11/06/18, 09:26 BUN, (4-19) 17 mg/dL 12/27/24, 09:59 Creatinine, (0.70-1.20) 1.03 mg/dL 12/27/24, 09:59 Glucose, (70-99) 113 mg/dL H 12/27/24, 09:59 POC Glucose, (70-110) 136 mg/dL H 10/25/19, 09:51 TSH, (0.300-4.200) 3.280 uIU/mL 10/27/24, 10:10 COAG PT, (11.7-14.9) 14.0 SECONDS 02/24/24, 16:40 Pre-Assessment Diagnosis/Proposed Procedure Planned Operative Procedure(s): EGD Anesthesia History 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 When Was Last Pacemaker Check QUESTION #4 FULL TEXT: You/Your Family Experience fever (hyperthermia) with Anesthesia Last Oral Intake Last Oral intake: Last Oral Intake NPO since 06:30 02/28/25 09:58 Meds taken in AM with sips of Yes 02/28/25 09:58 water? 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 bookkeeper Female Yes 02/24/25 13:59 HX of Motion Sickness No 02/24/25 13:59 HX of N/V After Surgery Yes 02/24/25 13:59 Non-Smoker Yes 02/24/25 13:59 Duration of Surgery greater No 02/24/25 13:59 than 60 minutes Number of Risk Factors 3 02/24/25 13:59 PONV Score Moderate Risk 02/24/25 13:59 Height & Weight Height & Weight: Anesthesia: Height & Weight Height 5 ft 6 in 02/28/25 09:58 Weight: 85.1 kg 02/28/25 09:58 Body Mass Index (BMI) 30.2 02/28/25 09:58 Respiratory Assessment Respiratory Assessment - office bookkeeper: Respiratory Tract Infection Hx - office bookkeeper Hx Respiratory Tract Infection No 02/24/25 13:59 STOP Sleep Apnea STOP Sleep Apnea - office bookkeeper: STOP Sleep Apnea - office bookkeeper Hx Hypertension Yes: PER PT, CONTROLLED ON 02/24/25 13:59 MEDS Hx Sleep Apnea No 02/24/25 13:59 CPAP No 02/24/25 13:59 BIPAP No 02/24/25 13:59 Do you snore loudly (louder No 02/24/25 13:59 than talking or can be heard Do you often feel tired/ No 02/24/25 13:59 fatigued/ sleepy during daytime? Has anyone observed you stop No 02/24/25 13:59 breathing during sleep? STOP Results Negative 02/24/25 13:59 QUESTION #5 FULL TEXT : Do you snore loudly (louder than talking or can be heard through closed doors)? 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 Specify any problems Hx of Preganancy in last 3 No 02/24/25 13:59 Months Nurse Filling Out Transfusion MGRIRAVEN 02/24/25 13:59 & Questions: Date: 02/24/25 02/24/25 13:59 Time: 14:01 02/24/25 13:59 Patient unable to answer at this time (ie. confused, unrespo /Reproduction History /Reproductive History - office bookkeeper: /Reproductive Hx- office bookkeeper Hx Now No 02/24/25 13:59 Gestational Age (in weeks): EDC: Hx Hx Para Hx Section SAB No 02/24/25 13:59 Does the father of the baby or his family experience fever w Father of the baby Malignant Hypertension history comment Active Medications Active Medications: Current Medications Generic Name Dose Route Start Last Admin Trade Name Freq PRN Reason Stop Dose Admin Lactated Ringer's 1,000 mls @ 15 mls/hr 02/28/25 09:45 02/28/25 10:01 IV 15 mls/hr .Q48H MARIA FERNANDA Administration [facility] Medical History Hypertension Encounter for immunization Overactive bladder Colitis Bladder disease Difficulty swallowing History of hiatal hernia Gastric reflux History of stress test Osteopenia PONV (postoperative nausea and vomiting) GI bleed Dark stools Left renal mass Abnormal CT of the abdomen Dupuytren contracture of right hand LLQ pain Obesity (BMI 30-39.9) Small lymphocytic lymphoma Wears glasses Wears partial dentures Wears dentures Seasonal allergies Non-smoker Sinusitis GERD (gastroesophageal reflux disease) Borderline type 2 diabetes mellitus Right hand pain Hyperglycemia Chronic sinusitis Shortness of breath Bilateral lower extremity edema Flu vaccine need Health care maintenance Tinnitus H/O tinnitus Chronic vertigo Cataracts, bilateral Back problem Actinic keratosis Cancer of skin of left ear Dupuytren's contracture Open cat bite of hand Cat bite of right hand with infection Restless leg syndrome Arthritis Vertigo High cholesterol Chronic hypertension Generalized osteoarthritis Home Medications Medication Instructions Recorded Last Taken Type multivitamin with iron 1 tab PO DAILY 03/31/1312/12 History biotin 2,500 mcg capsule 2,500 mcg PO ONCE 07/15/17 1 05/29/23 History celecoxib 200 mg capsule (Celebrex) 200 mg PO DAILY TN N pain #90 caps 09/16/23 03/28/24 Rx hydrochlorothiazide 25 mg tablet See Rx Instructions . Route 06/28/24 Unknown Rx .COMPLEX #90 tabs ropinirole 0.5 mg tablet 0.5 mg PO TID #360 tabs 06/1912/17/24 Rx losartan 100 mg tablet 100 mg PO DAILY 3 months #90 tabs 09/06/24 02/28/25 Rx oxybutynin chloride 10 mg 10 mg PO QDAY #90 tabs 09/06 Unknown Rx tablet,extended release 24 hr amlodipine 5 mg tablet 7.5 mg (1.5 x 5 mg) PO DAILY 3 09/20/24 02/28/25 Rx months #135 tabs aspirin 81 mg tablet 81 mg PO QDAY 10/27/2412/09 History Held on 02/24/25. Instructions: ON HOLD FOR EGD 02/25/25 pantoprazole 40 mg tablet,delayed 40 mg PO BID #180 ta bs 10/27/24 12/17/24 Rx release budesonide 3 mg 9 mg (3 x 3 mg) PO QAM 8 wee ks 01/07/25 Unknown Rx capsule,delayed,extended release #168 ea pen needle, diabetic 29 gauge x #100 ea 01/31/25 Unkno wn Rx 1/2" (Comfort EZ Pen [place]) potassium chloride 20 mEq 20 meq PO BID #180 tabs 01/19 07/13 Unknown Rx tablet,extended release tirzepatide (weight loss) 5 mg/0.5 5 mg (0.5 mL) subcu t QWEEK 3 02/21/25 02/16/25 Rx mL subcutaneous solution months #6.5 mL ondansetron 4 mg disintegrating 4 mg PO Q8H PRN nausea and vomiting 02/24/25 Unknown History tablet Allergy/AdvReac Type Severity Reaction Status Date / Time lisinopril (From Zestril) AdvReac Intermediate Cough Verified 02/28/25 09:57 hydrocodone bitartrate (From AdvReac Mild Itching Verified 02/28/25 09:57 Vicodin) Family History Father Myocardial infarction Heart disease Hypertension Mother Breast cancer Grandmother Breast cancer Sister Lung cancer Seizures Surgical History History of surgical removal of skin lesion History of lymph node excision History of left knee replacement History of colonoscopy History of lymph node biopsy History of cataract extraction H/O vaginal hysterectomy History of hysterectomy Cancer of skin of left ear Cat bite of right hand including fingers with infection Dupuytren contracture cancer removed S/P appendectomy S/P arthroscopy of knee History of total right knee replacement Social History Smoking Status: Never smoker alcohol intake: never substance use type: does not use caffeine: Yes what type of physical activity do you participate in: none seatbelt use: always do you feel safe at home: Yes additional social history: - Manuel SUN EXPOSURE: FREQUENTLY Review of Systems (Anesthesia) ROS Narrative System reviewed and no additional complaints, except as documented. Physical Exam Const alert, oriented x3 and average body habitus Resp normal respiratory effort, normal air movement and clear to auscultation bilaterally Cardio regular rate, regular rhythm, no murmurs and diaphoretic
--- NOTE | 2025-02-28 10:45 | EGD_PTH ---
PATIENT: VINAY TALAVERA LOC: EN U#:[id number] AGE/SX: 79/F ROOM: RE02/28/[address]: Dr. Moustapha Stanley DO : 1945 BED: DIS: 02/28/2025 SPEC #: [id number] RECD: 02/28/25 13:06 STATUS: VIVEK SHELIA #: [id number] KATHY: 02/28/25 10:[address]: Moustapha Stanley DEPT: SURGICAL PATHOLOGY RECD BY: Kurt Woody ENTERED: 02/28/25 13:44 SP TYPE: EGD BIOPSY LUPE DR: Dr. Eboni Katz MD Tissues: A - Gastric mucous membrane Procedures: Immunohistochemical Stains Surgery Specimen Level IV HEADER OPERATION: EGD with biopsy PRE-OP DIAGNOSIS: Nausea, gastric ulcer TISSUE SUBMITTED: A- Gastric antrum biopsy MICROSCOPIC DIAGNOSIS A. Gastric antrum, biopsy: - Features of reactive gastropathy. - IHC negative for H. pylori organisms. MICROSCOPIC DESCRIPTION Slides are reviewed. All matched controls reacted appropriately. These tests were developed and their performance characteristics determined by [facility]. They may not have been cleared or approved by the U.S. Food and Drug Administration. The FDA has determined that such clearance or approval is not necessary. The above immunohistochemical markers are viewed by the Pathologist. GROSS DESCRIPTION A. Received in fixative is one container labeled with the patient's name and designated "Gastric antrum biopsy." The specimen consists of two irregular fragments of amin tissue that measure cm. The specimen is totally submitted in one cassette. Note: Specimen was received in an open, leaking specimen container (SC). AK 02/28/2025 CPT:10487,29880
--- NOTE | 2025-02-28 11:12 | OP.EGD_ITS ---
Patient Name: Georgia Ro Procedure Date: 02/28/2025 10:54 AM Date of : 1945 Age: 79 Procedure: Upper GI endoscopy Indications: Peptic ulcer Providers: Moustapha Stanley DO Referring MD: Eboni Katz MD Medicines: Monitored Anesthesia Care Patient Profile: This is a 79 year old female. Refer to note in patient chart for documentation of history and physical. Patient has symptoms of chronic epigastric abdominal pain. Complications: No immediate complications. Procedure: Pre-Anesthesia Assessment: - Prior to the procedure, a History and Physical was performed, and patient medications and allergies were reviewed. The patient is competent. The risks and benefits of the procedure and the sedation options and risks were discussed with the patient. All questions were answered and informed consent was obtained. Patient identification and proposed procedure were verified by the physician in the pre-procedure area. Mental Status Examination: alert and oriented. Airway Examination: normal oropharyngeal airway and neck mobility. Respiratory Examination: clear to auscultation. CV Examination: normal. ASA Grade Assessment: II - A patient with mild systemic disease. After reviewing the risks and benefits, the patient was deemed in satisfactory condition to undergo the procedure. The anesthesia plan was to use monitored anesthesia care (MAC). Immediately prior to administration of medications, the patient was re-assessed for adequacy to receive sedatives. The heart rate, respiratory rate, oxygen saturations, blood pressure, adequacy of pulmonary ventilation, and response to care were monitored throughout the procedure. The physical status of the patient was re-assessed after the procedure. After obtaining informed consent, the endoscope was passed under direct vision. Throughout the procedure, the patient's blood pressure, pulse, and oxygen saturations were monitored continuously. The gastroscope was introduced through the mouth, and advanced to the third part of the duodenum. Small bowel enteroscopy was deemed necessary. The upper GI endoscopy was accomplished without difficulty. The patient tolerated the procedure well. Scope In: 11:02:27 AM Scope Out: 11:04:00 AM Total Procedure Duration Time 0 hours 1 minute 33 seconds Findings: The examined esophagus was normal. Patchy mildly erythematous mucosa without bleeding was found in the gastric antrum. Biopsies were taken with a cold forceps for histology. Biopsies were taken with a cold forceps for Helicobacter pylori testing. Verification of patient identification for the specimen was done. Estimated blood loss was minimal. No gross lesions were noted in the entire examined duodenum. Impression: - Normal esophagus. - Erythematous mucosa in the antrum. Biopsied. - No gross lesions in the entire examined duodenum. Recommendation: - Discharge patient to home. - Resume previous diet. - Continue present medications. - Await pathology results. Procedure Code(s): --- Professional --- 17585, Small intestinal endoscopy, enteroscopy beyond second portion of duodenum, not including ileum; with biopsy, single or multiple CPT copyright 2021 [employer]. All rights reserved. The codes documented in this report are preliminary and upon housing specialist review may be revised to meet current compliance requirements. Moustapha Stanley DO 02/28/2025 11:12:31 AM This report has been signed electronically. Number of Addenda: 0 Note Initiated On: 02/28/2025 10:54 AM
--- NOTE | 2025-02-28 11:12 | OP.PROVAT_ITS ---
02/28/2025 Eboni Katz MD [address] [place] [address] [place] [address] Re : Upper GI endoscopy procedure for Georgia Ro Dear Dr. Katz This procedure was performed on Friday, February 28, 2025. My impressions and recommendations are as follows: Impressions : - Normal esophagus. - Erythematous mucosa in the antrum. Biopsied. - No gross lesions in the entire examined duodenum. Recommendations : - Discharge patient to home. - Resume previous diet. - Continue present medications. - Await pathology results. My findings are described in the full procedure note, which is enclosed. If I can be of further assistance, please feel free to contact me at . Sincerely, Moustapha Stanley, 02/28/2025 11:12:31 AM This report has been signed electronically.
--- NOTE | 2025-02-28 11:16 | PCM.POST.ANE ---
Anesthesia: Postop Eval I Current Vital Signs Temperature: 97 F Pulse Rate: 72 Blood Pressure: 105/92 Respiratory Rate: 16 Pulse Ox: 98 Oxygen Delivery Method: Room Air Assessment Airway patent: Yes Spontaneous unlabored respirations: Yes Mental status: Awake and Calm nausea: No Vomiting: No Anesthesia Complication: No Fluid Hydration Crystalloid volume administer (ml): 400 Total IV fluid infused: 400 Progress Note Anesthesia document: Postop Eval 1 completed: Yes
--- NOTE | 2025-02-28 13:46 | PCM.POSTANE2 ---
Anesthesia Postop Eval I Sum Postop Eval Completion status Anesthesia document: Postop Eval 1 completed: Yes Anesthesia Postop Eval I Summary Anesthesia Postop Eval I Summary: Anesthesia Postop Eval I: Assessment Summary Airway patent Yes 02/28/25 11:17 [email or web address] Spontaneous unlabored Yes 02/28/25 11:17 [email or web address] respirations Mental status Awake,Calm 02/28/25 11:17 [email or web address] nausea No 02/28/25 11:17 [email or web address] Vomiting No 02/28/25 11:17 [email or web address] Anesthesia Postop Eval I: Fluid Summary Crystalloid volume administer 400 02/28/25 11:17 [email or web address] (ml) Colloids volume administered ( ml) Blood Product volume administered (ml) Total IV fluid infused 400 02/28/25 11:17 [email or web address] Anesthesia Postop Eval I: Summary Notes Anesthesia Complication No 02/28/25 11:17 [email or web address] Anesthesia Complication Comment: Post-operative progress note Anesthesia: Postop Eval II Evaluation Mental status: Awake Pain Level: 0 nausea: No Vomiting: No Complications Anesthesia Complication: No
== END 2025-02-28 11:51 | disposition home or self-care (01) ==
LOC: EN 09:35 → AC 09:36
PROVIDERS: PCP Internal Medicine; Referring Provider Internal Medicine; Visit Provider Internal Medicine Gastroenterology
DX: K25.9 Gastric ulcer, unspecified as acute or chronic, without hemorrhage or perforation (principal); E78.00 Pure hypercholesterolemia, unspecified; K21.9 Gastro-esophageal reflux disease without esophagitis; I10 Essential (primary) hypertension; Z79.899 Other long term (current) drug therapy
CPT/HCPCS: 44361; 88305; 88342; J2405

== ENCOUNTER → 2025-03-09 | Outpatient (CLI) | payer MEDICARE, SELFPAY ==
--- NOTE | 2025-03-09 10:00 | BI_ITS ---
EXAM: SCRN MAMM (CAD)W/SUNITA BILAT DATE: 03/09/2025 CLINICAL HISTORY: F, Age 79 y/o , BREAST CANCER SCREENING Mother with breast cancer. Grandmother with breast cancer. Prior left axillary biopsy. TECHNIQUE: Procedure Code: [id number] Modality: MG Procedure: SCRN MAMM (CAD)W/SUNITA BILAT COMPARISON: Prior exam(s) dated December 10, 2023.. FINDINGS: TISSUE DENSITY: The breasts are almost entirely fatty. Bilateral Breast Mammographic Findings: No significant masses, calcifications or other abnormalities are identified. No suspicious masses, areas of developing architectural distortion, or suspicious calcifications. There has been no significant interval change. BI/SCRN MAMM (CAD)W/SUNITA BILAT IMPRESSION: Stable bilateral screening mammogram. OVERALL FINAL ASSESSMENT BI-RADS 1: NEGATIVE. RECOMMENDATION: Routine annual follow-up in 1 Year Additional Recommendation none A letter with findings and recommendations will be mailed to the patient. Reading Location: [facility]
== END | disposition home or self-care (01) ==
PROVIDERS: PCP Internal Medicine; Referring Provider Internal Medicine; Visit Provider Internal Medicine
DX: Z12.31 Encounter for screening mammogram for malignant neoplasm of breast (principal)
CPT/HCPCS: 77063; 77067

== ENCOUNTER 2025-03-12 09:12 | Emergency (ER) | payer MEDICARE, SELFPAY ==
[2025-03-12 09:13] VITALS: BP 118/87; PULSE 86; RESP 18; TEMP 36.6; O2SAT 100
--- NOTE | 2025-03-12 09:19 | EKG12_ITS ---
Test Reason : CP Blood Pressure : */* mmHG Vent. Rate : 89 BPM Atrial Rate : 89 BPM P-R Int : 156 ms QRS Dur : 74 ms QT Int : 364 ms P-R-T Axes : 47 7 22 degrees QTcB Int : 442 ms Normal sinus rhythm Normal ECG Confirmed by NASH OLEARY, KATELIN ([id number]), video tape editor RORO FAITH ([id number]) on 03/14/2025 1:37:40 PM Referred By: AR/AK Confirmed By: KATELIN CAO MD
--- NOTE | 2025-03-12 09:19 | RAD_ITS ---
PROCEDURE: CHEST PA AND LATERAL 03/12/2025 REASON FOR EXAM: CHEST PAIN TECHNIQUE: Procedure Code: RADCXR Modality: DX Procedure: CHEST PA AND LATERAL COMPARISON: 02/24/2024 FINDINGS: LUNGS AND PLEURA: No focal airspace consolidation. Calcified granulomas on the left. No pleural effusion or pneumothorax. HEART AND MEDIASTINUM: The heart size and mediastinal contours are normal. AORTA: Calcified thoracic aorta. BONES: No acute osseous abnormality. Degenerative changes of the spine. RAD/Chest PA and Lateral IMPRESSION: NO ACUTE FINDINGS. Reading Location: [id number]
--- NOTE | 2025-03-12 09:30 | ED.VIS.CHEST ---
HPI History of Present Illness Chief Complaint: Chest Pain Narrative Narrative: Chief complaint and HPI: 79-year-old female with past medical history of HTN, overactive bladder, GERD, HLD presents for evaluation of chest pain. Patient states prior to arrival she was making breakfast in which she developed sharp left-sided chest pain that radiated into her jaw. States it took her breath away and she had to sit down. Lasted approximately 10 minutes and now has since resolved. She endorses some nausea but no vomiting. She has no history of CAD. Non-smoker. No diabetes. She denies any fever, chills, URI symptoms, cough. Review of systems: See HPI Medications: As listed on the chart Allergies: As listed on the chart PFSH: Per chart Vital signs: As listed on the chart. Reviewed. Physical exam: Gen: A&O x3, NAD Head: Normocephalic, atraumatic Eyes: No sclera icterus, conjunctiva clear ENT: Moist mucous membranes Neck: Trachea midline CV: RRR, no murmurs, minimal nonpitting peripheral edema Resp: Lungs CTA BL, no w/r/c GI: Abd soft, non-distended, non-tender, no r/r/g Musc: Full ROM, no deformity Skin: Warm, dry Psych: Cooperative, appropriate mood and [facility] History Hypertension Encounter for immunization Overactive bladder Colitis Bladder disease Difficulty swallowing History of hiatal hernia Gastric reflux History of stress test Osteopenia PONV (postoperative nausea and vomiting) GI bleed Dark stools Left renal mass Abnormal CT of the abdomen Dupuytren contracture of right hand LLQ pain Obesity (BMI 30-39.9) Small lymphocytic lymphoma Wears glasses Wears partial dentures Wears dentures Seasonal allergies Non-smoker Sinusitis GERD (gastroesophageal reflux disease) Borderline type 2 diabetes mellitus Right hand pain Hyperglycemia Chronic sinusitis Shortness of breath Bilateral lower extremity edema Flu vaccine need Health care maintenance Tinnitus H/O tinnitus Chronic vertigo Cataracts, bilateral Back problem Actinic keratosis Cancer of skin of left ear Dupuytren's contracture Open cat bite of hand Cat bite of right hand with infection Restless leg syndrome Arthritis Vertigo High cholesterol Chronic hypertension Generalized osteoarthritis Home Medications ?Medication ?Instructions ?Recorded ?Last Taken ?Type multivitamin with iron 1 tab PO DAILY 03/31/13 03/28/24 History biotin 2,500 mcg capsule 2,500 mcg PO ONCE 07/15/17 03/28/24 History celecoxib 200 mg capsule (Celebrex) 200 mg PO DAILY PRN pain #90 caps 09/16/23 03/28/24 Rx hydrochlorothiazide 25 mg tablet See Rx Instructions .Route 06/28/24 Unknown Rx .COMPLEX #90 tabs ropinirole 0.5 mg tablet 0.5 mg PO TID #360 tabs 06/28/24 12/17/24 Rx losartan 100 mg tablet 100 mg PO DAILY 3 months #90 tabs 09/06/24 02/28/25 Rx oxybutynin chloride 10 mg 10 mg PO QDAY #90 tabs 09/06/24 Unknown Rx tablet,extended release 24 hr amlodipine 5 mg tablet 7.5 mg (1.5 x 5 mg) PO DAILY 3 09/20/24 02/28/25 Rx months #135 tabs aspirin 81 mg tablet 81 mg PO QDAY 10/27/24 12/09/24 History Held on 02/24/25. Instructions: ON HOLD FOR EGD 02/25/25 pantoprazole 40 mg tablet,delayed 40 mg PO BID #180 tabs 10/27/24 12/17/24 Rx release pen needle, diabetic 29 gauge x #100 ea 01/31/25 Unknown Rx 1/2 (Comfort EZ Pen [place]) potassium chloride 20 mEq 20 meq PO BID #180 tabs 01/31/25 Unknown Rx tablet,extended release tirzepatide (weight loss) 5 mg/0.5 5 mg (0.5 mL) subcut QWEEK 3 02/21/25 02/16/25 Rx mL subcutaneous solution months #6.5 mL ondansetron 4 mg disintegrating 4 mg PO Q8H PRN nausea and vomiting 02/24/25 Unknown History tablet levofloxacin 750 mg tablet 750 mg PO DAILY 5 days #5 tabs 03/12/25 Unknown Rx Allergy/AdvReac Type Severity Reaction Status Date / Time lisinopril (From Zestril) AdvReac Intermediate Cough Verified 03/12/25 09:13 hydrocodone bitartrate (From AdvReac Mild Itching Verified 03/12/25 09:13 Vicodin) Family History Father Myocardial infarction Heart disease Hypertension Mother Breast cancer Grandmother Breast cancer Sister Lung cancer Seizures Surgical History History of surgical removal of skin lesion History of lymph node excision History of left knee replacement History of colonoscopy History of lymph node biopsy History of cataract extraction H/O vaginal hysterectomy History of hysterectomy Cancer of skin of left ear Cat bite of right hand including fingers with infection Dupuytren contracture cancer removed S/P appendectomy S/P arthroscopy of knee History of total right knee replacement Social History Smoking Status: Never smoker alcohol intake: never substance use type: does not use caffeine: Yes what type of physical activity do you participate in: none seatbelt use: always do you feel safe at home: Yes additional social history: [facility] [place] EXPOSURE: FREQUENTLY EXAM Physical Exam Const Vital Signs: 03/12/25 09:13 03/12/25 09:16 03/12/25 10:12 Temperature 97.8 F Temperature Source Oral Pulse Rate 86 76 Respiratory Rate 18 19 H Respiratory Effort Normal Non-Labored Blood Pressure 118/87 H 118/65 Blood Pressure Mean 97 82 Pulse Ox 100 99 Oxygen Delivery Method Room Air Room Air 03/12/25 11:00 03/12/25 12:00 03/12/25 13:00 Temperature Temperature Source Pulse Rate 80 88 68 Respiratory Rate 16 16 Respiratory Effort Blood Pressure 119/72 122/70 H 118/70 Blood Pressure Mean 87 87 86 Pulse Ox 96 99 99 Oxygen Delivery Method 03/12/25 13:08 Temperature 98.2 F Temperature Source Pulse Rate 68 Respiratory Rate 16 Respiratory Effort Blood Pressure 118/70 Blood Pressure Mean 86 Pulse Ox 99 Oxygen Delivery Method MDM MDM MDM Narrative Medical decision making narrative: 79-year-old female with past medical history of HTN, overactive bladder, GERD, HLD presents for evaluation of chest pain. Patient states prior to arrival she was making breakfast in which she developed sharp left-sided chest pain that radiated into her jaw. States it took her breath away and she had to sit down. Lasted approximately 10 minutes and now has since resolved. On chart review, patient had a stress test on 11/23/2024 in which she had an EF of 70%. It was a normal pharmacological myocardial perfusion stress test. On presentation, patient no acute distress. Vitals are stable. She took a baby aspirin earlier this morning. Differential diagnosis includes but is not limited to ACS, pleurisy, PE, electrolyte abnormality, arrhythmia, myofascial spasm. Aspirin ordered. Cardiac workup ordered. Patient told nursing that she is concerned about possibly UTI and asked us to obtain a urine. This was ordered. CBC without leukocytosis or anemia. Coagulation panel unremarkable. D-dimer unremarkable. BMP unremarkable. Magnesium unremarkable. Troponin originally 16 however repeat 14. BNP unremarkable. UA questionable for UTI. Given patient is having UTI type symptoms with dysuria. Will send for culture and treat. On previous cultures, patient grew out E. coli that was sensitive to Levaquin but resistant to penicillins. Will prescribe a 5-day course of Levaquin. On reevaluation, patient has remained asymptomatic. Her heart score is a 4 which places her in moderate risk. However she did describe it as sharp, only lasted 10 minutes. She just had a unremarkable and normal stress test. Given all of this information, patient stable to discharge home as I have low suspicion for active ACS. Follow-up with primary care physician. Return precautions explained. She confirmed understand the plan and was in agreement. Patient discharged home. EKG: Interpreted by me/EM physician: EKG shows normal sinus rhythm without any acute ischemic changes. Heart rate 89 Diagnostic: Interpreted by me/EM physician: Chest x-ray doubt pneumonia, effusion, cardiomegaly, pneumothorax. Radiology in agreement. Impression: 1. Chest pain 2. UTI Lab Data Labs: Laboratory Results - last 24 hr 03/12/25 03/12/25 03/12/25 09:34 09:35 11:28 WBC 7.1 RBC 4.88 Hgb 14.6 Hct 43.4 MCV 88.9 MCH 29.9 MCHC 33.6 RDW Std Deviation 44.4 H RDW Coeff of Arlette 13.6 Plt Count 204 MPV 10.4 Immature Gran % (Auto) 0.600 Neut % (Auto) 57.0 Lymph % (Auto) 30.3 Ector % (Auto) 10.3 H Eos % (Auto) 1.0 Baso % (Auto) 0.8 Absolute Neuts (auto) 4.0 Absolute Lymphs (auto) 2.15 Nucleated RBC % 0 PT 13.6 INR 1.0 APTT 24.3 D-Dimer Quant (PE/DVT) 0.41 Sodium 135 Potassium 3.8 Chloride 98 Carbon Dioxide 23.3 Anion Gap 14 BUN 14 Creatinine 1.34 H Est GFR (MDRD) Non-Af 41 L BUN/Creatinine Ratio 10.7 Glucose 92 Calcium 9.8 Magnesium 1.8 Troponin T High Sens 16 H Troponin T Hi Sens 2 Hr 14 NT pro BNP II < 36 Urine Color Urine Clarity Urine pH Ur Specific [place] Urine Protein Urine Glucose (UA) Urine Ketones Urine Occult Blood Urine Nitrite Urine Bilirubin Urine Urobilinogen Ur Leukocyte Esterase Urine RBC Urine WBC Ur Squamous Epith Cells Urine Bacteria Hyaline Casts Urine Mucus 03/12/25 12:03 WBC RBC Hgb Hct MCV MCH MCHC RDW Std Deviation RDW Coeff of Arlette Plt Count MPV Immature Gran % (Auto) Neut % (Auto) Lymph % (Auto) Ector % (Auto) Eos % (Auto) Baso % (Auto) Absolute Neuts (auto) Absolute Lymphs (auto) Nucleated RBC % PT INR APTT D-Dimer Quant (PE/DVT) Sodium Potassium Chloride Carbon Dioxide Anion Gap BUN Creatinine Est GFR (MDRD) Non-Af BUN/Creatinine Ratio Glucose Calcium Magnesium Troponin T High Sens Troponin T Hi Sens 2 Hr NT pro BNP II Urine Color Yellow Urine Clarity Clear Urine pH 6.5 Ur Specific [place] 1.010 Urine Protein 30 H Urine Glucose (UA) Normal Urine Ketones Negative Urine Occult Blood 10 H Urine Nitrite Negative Urine Bilirubin Negative Urine Urobilinogen Normal Ur Leukocyte Esterase 500 H Urine RBC 0 SEEN Urine WBC 25-50 SEEN Ur Squamous Epith Cells 0-5 SEEN Urine Bacteria 0 SEEN Hyaline Casts 5-10 SEEN Urine Mucus 0 SEEN Radiography Diagnostic Testing: Clinical Impression(s) from Imaging Studies Chest X-Ray 03/12/25 09:19 IMPRESSION: NO ACUTE FINDINGS. Reading Location: [facility] Discharge Plan Triage Chief Complaint: Chest Pain ED Provider: [place] [facility] Dx/Rx/DC Orders Clinical Impression: Chest pain, UTI (urinary tract infection) Instructions: Urinary Tract Infections in Women, ED Chest Pain [facility] Prescriptions: New levofloxacin 750 mg tablet 750 mg PO DAILY 5 Days Qty: 5 0RF No Action biotin 2,500 mcg capsule 2,500 mcg PO ONCE aspirin 81 mg tablet 81 mg PO QDAY pantoprazole 40 mg tablet,delayed release (DR/EC) 40 mg PO BID Qty: 180 1RF potassium chloride 20 mEq tablet extended release 20 meq PO BID Qty: 180 3RF multivitamin with iron 1 EACH tablet 1 tab PO DAILY Patient Comments: VITAMIN SUPPLEMENT ondansetron 4 mg tablet,disintegrating 4 mg PO Q8H PRN (Reason: nausea and vomiting) celecoxib [Celebrex] 200 mg capsule 200 mg PO DAILY PRN (Reason: pain) Qty: 90 3RF ropinirole 0.5 mg tablet 0.5 mg PO TID Qty: 360 3RF hydrochlorothiazide 25 mg tablet See Rx Instructions .ROUTE .COMPLEX Qty: 90 3RF Dose Instruction: TAKE 1 TABLET DAILY Rx Instructions: TAKE 1 TABLET DAILY losartan 100 mg tablet 100 mg PO DAILY 90 Days Qty: 90 3RF oxybutynin chloride 10 mg tablet extended release 24hr 10 mg PO QDAY Qty: 90 3RF amlodipine 5 mg tablet 7.5 mg PO DAILY 90 Days Qty: 135 3RF (DME) pen needle, diabetic [Comfort EZ Pen [place]] 29 gauge x 1/2 needle See Rx Instructions .Route Qty: 100 3RF Rx Instructions: As directed tirzepatide (weight loss) 5 mg/0.5 mL solution 5 mg subcut QWEEK 90 Days Qty: 6.5 1RF Primary Care Provider: Eboni Katz Referrals: Eboni Katz MD [Primary Care Provider, Internal Medicine] - 3-5 Days Activity Restrictions/Additional Instructions: Follow-up with primary care physician. Return back to ED if symptoms change or worsen. Print Language: Malay Disposition Disposition: Home, Self Care
--- OUTSIDE RECORDS SUMMARY | 2025-03-12 09:41 | XMS RPT_ITS | CCD ---
Author Organization [facility] [place] [facility] Care Team Providers Care Ground Wirer Name Role Phone Brennen Hopper MD Unavailable KAMERON BERNARDO (CLINICAL TRIAL EDUCATOR) Unavailable Unavailable Dr. Eboni Katz Primary Care Provider [phone] Dr. Eboni Katz Referring Provider [phone] BHANU Hnut Attending Provider Unavailab Dr. Eboni Treviño Attending [...] [phone] Dr. Andre Machado Attending Provider BHANU Weeks Attending Provider Dr. Andre Machado Referring Provider Dr. Andre Machado Other Provider Gianna OLEARY, Dr. Lyn Primary Care Provider Gianna OLEARY, Dr. Lyn Attending Provider Gianna OLEARY, Dr. Lyn Referring Provider Ruby Abreu Attending Provider Ruby Abreu Referring Provider Gianna OLEARY, Dr. Lyn Primary Care Provider Irving OLEARY, Dr. Perry Attending Provider Gianna OLEARY, Dr. Lyn Attending Provider [phone] Gianna OLEARY, Dr. Lyn Referring Provider [phone] Gianna OLEARY, Dr. Lyn Other Provider [phone] Mattie OLEARY, Dr. Mclaughlin Attending Provider Jaden CHAIDEZ, Dr. Gerard Attending Provider Jaden CHAIDEZ, Dr. Gerard Other Provider Santos CARLOS-C, Rachelle Attending Provider Maria A OLEARY, Dr. Pryor Attending Provider Maria A OLEARY, Dr. Pryor Referring Provider Gianna OLEARY, Dr. Lyn Primary Care Physician Irving OLEARY, Dr. Perry Attending Physician Gianna OLEARY, Dr. Lyn Attending Physician [phone] Ruby Abreu Attending Physician Gianna OLEARY, Dr. Lyn Nurse Practitioner [phone] Mattie OLEARY, Dr. Mclaughlin Attending Physician Jaden CHAIDEZ, Dr. Gerard Attending Physician Friend Dr. Moustapha CHAIDEZ Nurse Practitioner Santos CARLOS-CRachelle Attending Physician [phone] Dr. Konstantin Saha MD Attending Physician Konstantin Saha Attending Unavailable Oleghe, Efewongbe Referring Unavailable Oleghe, Efewongbe Primary Care Unavailable Oleghe, Efewongbe Attending Unavailable Oleghe, Efewongbe Referring Unavailable Oleghe, Efewongbe Primary Care Unavailable Oleghe, Efewongbe Primary Care Unavailable Ruby Parekh Referring Unavailable Ruby Parekh Attending Unavailable Oleghe, Efewongbe Attending Unavailable Oleghe, Efewongbe Referring Unavailable Oleghe, Efewongbe Primary Care Unavailable Oleghe, Efewongbe Attending Unavailable Oleghe, Efewongbe Referring Unavailable Oleghe, Efewongbe Primary Care Unavailable Oleghe, Efewongbe Primary Care Unavailable Friend, Moustapha Attending Unavailable FriendMoustapha Consulting Unavailable Oleghe, Efewongbe Referring Unavailable Oleghe, Efewongbe Referring Unavailable Mattie, Arnoldo Attending Unavailable Oleghe, Efewongbe Primary Care Unavailable Oleghe, Efewongbe Consulting Unavailable Ruby Parekh Attending Unavailable Oleghe, Efewongbe Referring Unavailable Oleghe, Efewongbe Primary Care Unavailable Ruby Parekh Referring Unavailable Ruby Parekh Attending Unavailable Oleghe, Efewongbe Primary Care Unavailable Oleghe, Efewongbe Primary Care Unavailable Oleghe, Efewongbe Attending Unavailable Oleghe, Efewongbe Referring Unavailable Oleghe, Efewongbe Primary Care Unavailable Moustapha Stanley Referring Unavailable FriendMoustapha Attending Unavailable Oleghe, Efewongbe Primary Care Unavailable Ruby Parekh Referring Unavailable Ruby Parekh Attending Unavailable FriendMoustapha Attending Unavailable Oleghe, Efewongbe Referring Unavailable Oleghe, Efewongbe Primary Care Unavailable Oleghe, Efewongbe Primary Care Unavailable FriendMoustapha Attending Unavailable Oleghe, Efewongbe Referring Unavailable FriendMoustapha Attending Unavailable Oleghe, Efewongbe Referring Unavailable Oleghe, Efewongbe Primary Care Unavailable Oleghe, Efewongbe Referring Unavailable Oleghe, Efewongbe Attending Unavailable Oleghe, Efewongbe Primary Care Unavailable Oleghe, Efewongbe Primary Care Unavailable Oleghe, Efewongbe Attending Unavailable Oleghe, Efewongbe Referring Unavailable Oleghe, Efewongbe Primary Care Unavailable AustenusKonstantin Attending Unavailable IsckarusYangour Referring Unavailable Oleghe, Efewongbe Attending Unavailable Oleghe, [...] Primary Care Unavailable Oleghe, Efewongbe Referring Unavailable Santos SHELLFISH MEAT SEPARATOR OPERATORRachelle Attending Unavailable Oleghe, Efewongbe Primary Care Unavailable Oleghe, Efewongbe Primary Care Unavailable Friend, Moustapha Attending Unavailable Friend, Moustapha Consulting Unavailable Oleghe, Efewongbe Referring Unavailable Friend, Moustapha Attending Unavailable Friend, Moustapha Consulting Unavailable Oleghe, Efewongbe Referring Unavailable Oleghe, Efewongbe Primary Care Unavailable Allergies Allergy Classification Reported Allergen(s) Allergy Type Date of Onset Reaction(s) Facility (1 source) acetaminophen / HYDROcodone Drug Allergy 6 red-itchy [facility] Work Phone: (1 source) lisinopril Drug Allergy 6 cough [facility] Work Phone: (1 source) Acetaminophen / HYDROcodone; Translations: [HYDROCODONE-ACET AMINOPHEN] Drug Allergy 5 [facility] Repository (20 sources) Lisinopril; Translations: [LISINOPRIL] Drug Allergy 5 [facility], Cough [facility] Repository (1 source) OTHER; Translations: [OTHER] Propensity to adverse reactions (disorder) 6 [facility] Repository (19 sources) HYDROcodone; Translations: [hydrocodone bitartrate] Drug Allergy 2 Itching [facility] Medications Current Medications Medication Drug Class(es) Dates Sig (Normalized) Sig (Original) aspirin 81 mg oral tablet (20 sources) Platelet Aggregation Inhibitor, Nonsteroidal Anti-inflammatory Drug Start: 10-27-2024 take 1 tablet by mouth once daily Aspirin 81 mg tablet Active 81 mg PO daily October 27, 2024 12:00am Complies with drug therapy Start: 09-18-2021 End: 03-24-2024 take 1 capsule [...] 2019 8:08am biotin 2.5 mg oral capsule (18 sources) Start: 07-15-2017 take 1 capsule by mouth once Biotin 2,500 mcg capsule Active 2500 ug PO ONCE July 15, 2017 12:00am Complies with drug therapy budesonide 3 mg delayed release oral capsule (2 sources) Corticosteroid Start: 01-07-2025 take 3 capsules by mouth once daily in the morning Budesonide 3 mg capsule,delayed,ex tend.release Active 9 mg PO EVERY MORNING 168 56 0 January 07, 2025 12:00am March 03, 2025 1:00am Complies with drug therapy Ipratropium (10 sources) Anticholinergic Start: 09-03-2021 take 1 spray(s) nasal route twice daily Ipratropium [place] Active 2 SPRAY INTRANASAL TWICE A DAY September 03, 2021 9:06am administer into each nostril Start: 09-03-2021 End: 09-25-2021 Ipratropium [place] 21 mcg ( 0.03 %) spray,non-aerosol Discontinued 2 NMA INTRANASAL TWICE A DAY as needed for allergy symptoms/ Sinus symptoms 18 07September 03, 2021 12:00am September 25, 2021 12:45pm administer into each nostril Start: 09-03-2021 End: 09-25-2021 take 1 spray(s) nasal route twice daily Ipratropium [place] Discontinued 2 SPRAY INTRANASAL TWICE A DAY September 02, 2021 11:00pm September 25, 2021 11:45am administer into each nostril Start: 09-03-2021 End: 09-25-2021 take 1 spray(s) nasal route twice daily Ipratropium [place] Discontinued 2 SPRAY INTRANASAL TWICE A DAY September 03, 2021 12:00am September 25, 2021 12:45pm administer into each nostril losartan potassium 100 mg oral tablet (20 sources) Angiotensin 2 Receptor Medardo Start: 11-19-2023 End: 09-06-2024 take 1 tablet by mouth once daily Losartan 100 mg tablet Active 100 mg PO DAILY 90 90 September 06, 2024 1:03pm Complies with drug therapy Start: 05-07-2021 End: 11-19-2023 take 1 tablet [...] 02, 2018 12:00am November 06, 2018 9:23am Multivitamin With Iron (9 sources) Start: 03-31-2013 take 1 tablet by mouth once daily Multivitamin With Iron Active 1 TABLET PO DAILY March 31, 2013 11:02pm Start: 03-31-2013 take 1 tablet by nannette th once daily Multivitamin With Iron Active 1 TABLET PO DAILY March 31, 2013 12:00am Start: 03-31-2013 take 1 tablet by nannetet th once daily Multivitamin With Iron Active 1 TABLET PO DAILY March 31, 2013 1:00am Multivitamin With Iron 1 EACH tablet (9 sources) Start: 03-31-2013 take 1 tablet by mouth once daily Multivitamin With Iron 1 EACH tablet Active 1 {tbl} PO DAILY March 31, 2013 1:00am Complies with drug therapy Start: 03-31-2013 take 1 tablet by nannette th once daily Start: 03-31-2013 take 1 tablet by nannette th once daily Multivitamin With Iron 1 EACH tablet Active 1 {tbl} PO DAILY March 31, 2013 1:00am ondansetron 4 mg disintegrating oral tablet (2 sources) Serotonin-3 Receptor Antagonist Start: 01-07-2025 take 1 tablet by mouth every eight hours Ondansetron 4 mg tablet,disintegrating Active 4 mg PO Q8H 20 January 07, 2025 12:00am Complies with drug therapy 24 hr oxybutynin chloride 10 mg extended release oral tablet (20 sources) Cholinergic Muscarinic Antagonist Start: 09-06-2024 take 1 tablet by mouth once daily Oxybutynin Chloride 10 mg tablet extended release 24hr Active 10 mg PO daily 90 September 06, 2024 12:00am Complies with drug therapy Start: 07-26-2024 End: 09-06-2024 take 1 tablet [...] 02, 2018 10:39am November 06, 2018 8:52am potassium chloride 20 meq extended release oral tablet (20 sources) Start: 10-12-2020 End: 01-31-2025 take 1 tablet by mouth twice daily Potassium Chloride 20 mEq tablet extended release Active 20 meq PO TWICE A DAY 180 January 31, 2025 9:10am Complies with drug therapy Start: 10-06-2020 End: 10-12-2020 take 1 tablet [...] 06, 2018 8:22am August 19, 2019 12:17pm sucralfate 1000 mg oral tablet (20 sources) Aluminum Complex Start: 02-03-2025 take 1 tablet by nannette th twice daily Start: 01-10-2025 End: 02-03-2025 take 1 tablet by mouth twice daily Sucralfate 1 gram tablet Discontinued 1 g PO TWICE A DAY 60 0 February 01, 2025 1:56pm February 03, 2025 8:58am Start: 01-10-2025 take 1 tablet by nannette twice daily Start: 10-27-2024 End: 11-10-2024 take 1 tablet by mouth at bedtime [...] 21, 2022 1:00am April 22, 2022 1:04am Tirzepatide (Weight Loss) (1 source) Start: 01-31-2025 End: 01-31-2025 Tirzepatide (Weight Loss) (Z epbound) 2.5 mg/0.5 mL pen injector Discontinued 2.5 mg SC EVERY WEEK 2 0 January 31, 2025 12:00am January 31, 2025 4:31pm for 4 weeks Tirzepatide (Weight Loss) (1 source) Start: 01-31-2025 Completed/Discontinued Medications Medication Drug Class(es) Dates Sig (Normalized) Sig (Original) acetaminophen 325 mg oral tablet (20 sources) Start: 05-21-2023 End: 01-31-2025 take 2 tablets by mouth every four hours as needed for pain Acetaminophen 325 mg tablet Discontinued 650 mg PO EVERY 4 HOURS NEEDED as needed for Pain Or Fever October 27, 2024 9:37am January 31, 2025 8:03am Start: 05-21-2023 take 650 mg by mouth [...] 25, 2019 11:00pm September 18, 2021 6:57am acetaminophen 325 mg / oxyCODONE hydrochloride 5 mg oral tablet (20 sources) Opioid Agonist Start: 12-19-2016 End: 07-15-2017 Oxycodone-Acetaminophen 1 TABLET tablet Discontinued 1 - 2 [...] times daily as needed for pain OXYCODONE-ACETAMINOPHEN [id number] Brennen Hopper MD Start: 04-05-2016 End: 04-05-2016 [...] 2016 5:08pm alcaftadine 2.5 mg/ml ophthalmic solution (16 sources) Start: 09-18-2021 End: 12-05-2021 take 0.25 [...] Blood-Glucose Meter (Contour Next Ez Meter) kit (9 sources) Start: 07-26-2024 End: 10-27-2024 Blood-Glucose Meter (Contour Next Ez Meter) kit Discontinued 0 .Route 1 3 July 26, 2024 12:00am October 27, 2024 9:38am As directed cefadroxil 500 mg oral capsule (18 sources) Cephalosporin Antibacterial Start: 12-19-2016 End: 07-15-2017 [...] 2018 6:01pm ciprofloxacin 500 mg oral tablet (18 sources) Quinolone Antimicrobial Start: 05-07-2019 End: 05-24-2019 take 1 tablet by mouth twice daily Ciprofloxacin Hcl 500 mg tablet Discontinued 500 mg PO TWICE A DAY 10 May 07, 2019 1:00am May 24, 2019 9:22am daily defense (18 sources) Start: 11-06-2018 End: 01-05-2021 take 1 [...] 2020 11:02am diazePAM 2 mg oral tablet (18 sources) Benzodiazepine Start: 03-31-2013 End: 10-01-2018 take [...] propionate 0.05 mg/actuat metered dose nasal spray (18 sources) Corticosteroid Start: 03-31-2013 End: 07-15-2017 Fluticasone Propionate 1 SPRAY spray,suspension Discontinued 50 ug NASAL DAILY NEEDED as needed for Allergies March 31, 2013 1:00am July 15, 2017 9:15am gabapentin 100 mg oral capsule (4 sources) Anti-epileptic Agent Start: 05-22-2016 End: 06-26-2016 take 1 tablet by mouth three times daily NEURONTIN 100 MG CAPS One tablet by mouth three times daily GABAPENTIN [id number] Brennen Hopper MD Start: 04-24-2016 End: 06-26-2016 take 1 tablet by mouth twice daily NEURONTIN 100 MG CAPS One tablet by mouth twice daily GABAPENTIN [id number] Ameena Pereira LPN Gauze Bandage (9 sources) [...] Gauze Bandage (Rolled Gauze) 1 EACH Bandage (18 sources) Start: 04-05-2016 End: 04-05-2016 Gauze Bandage [...] and S61.401A. Gauze Bandage 1 EACH Bandage (9 sources) Start: 04-05-2016 End: 04-05-2016 [...] 2018 7:53am take 1 tablet by nannette once daily HYDROCHLOROTHIAZIDE 50 MG TABS One tablet by mouth daily HYDROCHLOROTHIAZIDE [id number] Archana Barraza imiquimod 50 mg/ml topical cream (1 source) Start: 01-06-2017 ALDARA 5 % CRE A apply daily at night 5 days per week for 6 weeks IMIQUIMOD [id number] Brennen Hopper MD Ipratropium [place] 21 mcg (0.03 %) spray,non-aerosol (7 sources) Start: 09-03-2021 End: 09-25-2021 Ipratropium [place] 21 mcg (0.03 %) spray,non-aerosol Discontinued 2 NMA INTRANASAL TWICE A DAY as needed for allergy symptoms/ Sinus symptoms 30 3 September 03, 2021 12:00am September 25, 2021 12:45pm administer into each nostril lactobacillus acidophilus [id number] unt / pectin 100 mg oral tablet (20 sources) Start: 12-19-2016 End: 07-15-2017 take 1 tablet by mouth twice daily Acidophilus-Pectin, Shiner 1 EACH tablet Discontinued 1 NMA PO TWICE A DAY 10 0 December 19, 2016 12:00am July 15, 2017 9:15am Start: 12-19-2016 End: 07-15-2017 Acidophilus-Pectin, Shiner D iscontinued 1 EACH PO TWICE A DAY 10 December 18, 2016 11:00pm July 15, 2017 8:15am Start: 04-05-2016 End: 04-05-2016 take 1 tablet by mouth twice daily Acidophilus-Pectin, Shiner 1 EACH tablet Discontinued 1 NMA PO TWICE A DAY 30 2 April 05, 2016 1:00am April 05, 2016 6:07pm Start: 04-05-2016 End: 04-05-2016 Acidophilus-Pectin, Shiner D iscontinued 1 EACH PO TWICE A DAY 30 April 05, 2016 12:00am April 05, 2016 5:07pm Magnesium (18 sources) Start: 02-16-2019 End: 09-09-2019 take 250 [...] 8:22am meclizine hydrochloride 25 mg chewable tablet (18 sources) Antiemetic Start: 03-31-2013 End: 10-01-2018 take 1 tablet by mouth three times daily as needed for dizziness Meclizine 25 MG tablet,chewable Discontinued 25 mg PO THREE TIMES A DAY as needed for Dizziness March 31, 2013 1:00am October 01, 2018 6:03pm 24 hr metFORMIN hydrochloride 500 mg extended release oral tablet (20 sources) Biguanide Start: 07-27-2024 End: 01-03-2025 take 1 tablet by mouth twice daily Metformin 500 mg tablet extended release 24 hr Discontinued 500 mg PO TWICE A DAY 90 1 October 04, 2024 7:55am January 03, 2025 6:07pm Start: 04-19-2024 End: 07-27-2024 take 1 tablet by mouth once daily in the evening Metformin 500 mg tablet extended release 24 hr Discontinued 500 mg PO EVERY EVENING 90 1 June 16, 2024 8:00pm July 26, 2024 9:30am nitrofurantoin, macrocrystals 25 mg / nitrofurantoin, monohydrate 75 mg oral capsule (18 sources) Nitrofuran Antibacterial Start: 03-04-2019 End: 03-11-2019 [...] 40 mg PO TWICE A DAY 180 1 October 27, 2024 10:03am Complies with drug therapy Start: 06-10-2023 End: 02-19-2024 take 1 tablet [...] 21, 2019 12:00am May 24, 2019 9:38am pravastatin sodium 40 mg oral tablet (18 sources) HMG-CoA Reductase Inhibitor Start: 03-31-2013 End: 09-02-2018 Pravastatin 40 MG tablet Discontinued 20 mg PO AT BEDTIME March 31, 2013 1:00am September 02, 2018 10:40am Start: 03-31-2013 End: 09-02-2018 take 20 mg by mouth at bedtime Pravastatin Discontinue d 20 MG PO AT BEDTIME March 31, 2013 12:00am September 02, 2018 9:40am predniSONE 20 mg oral tablet (11 sources) Start: 05-14-2023 End: 05-21-2023 take 2 [...] A DAY 360 August 22, 2023 5:18pm March 10th, 2025 10:41am ROPINIROLE HCL 5 MG TABS 3 times daily ROPINIROLE HCL [id number] Archana Barraza Semaglutide (9 sources) Start: 07-26-2024 End: 10-27-2024 Semaglutide (Ozempic) 0.25 m g or 0.5 mg (2 mg/3 mL) pen injector Discontinued 0.25 mg SC EVERY WEEK 3 July 26, 2024 12:00am October 27, 2024 9:38am for 4 weeks Silver-Hydrocolloid Dressing (Aquacel-Ag W-Hydrofiber Dress) 1 EACH Bandage (18 sources) Start: 04-05-2016 End: 04-05-2016 Silver-Hydrocolloid Dressing [...] TABS 1 tab pm SOLIFENACIN SUCCINATE TABS [id number] Archana Barraza valsartan 160 mg oral tablet (19 sources) Angiotensin 2 Receptor Medardo Start: 3 End: 9 take 1 tablet by mouth once daily Valsartan 160 MG tablet Discontinued 160 mg PO DAILY March 31, 2013 1:00am September 02, 2018 10:40am Vibegron (9 sources) Start: 4 End: 5 take 1 tablet by mouth once daily Vibegron (Gemtesa) 75 mg tablet Discontinued 75 mg PO DAILY March 24, 2024 1:00am July 26, 2024 9:05am Vonoprazan (4 sources) Start: 5 End: 5 take 1 tablet by mouth once daily Vonoprazan (Voquezna) 10 mg tablet Discontinued 10 mg PO daily June 11, 2024 1:02pm July 26, 2024 9:05am Start: 06-11-2024 End: 06-11-2024 take 1 tablet by mouth once daily Vonoprazan (Voquezna) 10 mg tablet Discontinued 10 mg PO daily June 11, 2024 1:00am June 11, 2024 1:02pm Vonoprazan (Voquezna) 10 mg tablet (14 sources) Start: 06-11-2024 End: 07-26-2024 take 1 [...] Date Documented Da te Episodic/Chronic Abdominal pain (20 sources) Left lower quadrant pain; Translations: [Left lower quadrant pain] Onset: 5 11-19-2023 Episodic Anxiety disorders (20 sources) Mixed anxiety and depressive disorder; Translations: [Other specified anxiety disorders] 02-16-2019 Chronic Cataract (18 sources) Bilateral cataracts; Translations: [Unspecified cataract] 10-25-2019 Chronic Conditions associated with dizziness or vertigo (20 sources) Vertigo; Translations: [Dizziness and giddiness] 10-01-2018 Episodic Diabetes mellitus without complication (20 sources) Hyperglycemia; Translations: [Hyperglycemia, unspecified] Onset: 5 03-22-2022 Episodic Disorders of lipid metabolism (20 sources) Hypercholesterolemia; Translations: [Pure hypercholesterolemia, unspecified] Onset: 5 10-01-2018 Chronic E Codes: Natural/environment (18 sources) Cat bite - wound; Translations: [Bitten by cat, initial encounter] 04-02-2016 Episodic Comment on above: W55.01xAcat bite inf ection dorsum right hand at MP joint index finger with surrounding cellulitis extending onto index finger and onto distal dorsal forearm Esophageal disorders (19 sources) Gastroesophageal reflux disease; Translations: [Gastro-esophageal reflux disease without esophagitis] Onset: 5 04-08-2022 Chronic Essential hypertension (20 sources) Benign essential hypertension; Translations: [Essential (primary) hypertension] Onset: 5 Chronic External Injury - Natural / Environment (2 sources) Bitten by cat, subsequent encounter; Translations: [Bitten by cat, initial encounter] Onset: 6 05-08-2016 Gastroduodenal ulcer (except hemorrhage) (6 sources) Gastric ulcer; Translations: [Gastric ulcer, unspecified as acute or chronic, without hemorrhage or perforation] Onset: 5 01-07-2025 Chronic Gastrointestinal hemorrhage (20 sources) Gastrointestinal hemorrhage; Translations: [Gastrointestinal hemorrhage, unspecified] Onset: 4 02-23-2024 Episodic Immunizations and screening for infectious disease (20 sources) Needs influenza immunization; Translations: [Encounter for immunization] Onset: 5 01-05-2021 Episodic Lymphadenitis (20 sources) Lymphadenopathy; Translations: [Generalized enlarged lymph nodes] Episodic Comment on above: left axillary 3.5 x 2.1 cm, 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, unspecified site] Onset: 5 06-12-2023 Chronic Noninfectious gastroenteritis (3 sources) Colitis; Translations: [Noninfective gastroenteritis and colitis, unspecified] Onset: 5 01-31-2025 Episodic Open wounds of extremities (20 sources) Open [...] Chronic Other bone disease and musculoskeletal deformities (9 sources) Osteopenia; Translations: [Other specified disorders of bone density and structure, unspecified site] 10-27-2024 Episodic Other connective tissue disease (20 sources) Dupuytren's contracture ; Translations: [Palmar fascial fibromatosis [Dupuytren]] Onset: 7 05-17-2016 Episodic Other connective tissue disease (12 sources) Hand pain; Translations: [Pain in right hand] 04-08-2022 Episodic Other connective tissue disease (3 sources) Palmar fascial fibromatosis [Dupuytren]; Translations: [Contracture of palmar fascia] 07-05-2022 Episodic Other connective tissue disease (12 sources) Pain in axilla; Translations: [Pain in left upper arm] 03-11-2023 Episodic Other connective tissue disease (4 sources) Pain in left upper arm; Translations: [Pain in limb] 11-21-2023 Episodic Other connective tissue disease (2 sources) Pain in right hand; Translations: [Pain in right hand] 04-08-2022 Episodic Other connective tissue disease (2 sources) Dupuytren contracture of right palm; Translations: [Palmar fascial fibromatosis [Dupuytren]] 11-19-2023 Episodic Other diseases of bladder and urethra (2 sources) Overactive bladder; Translations: [Overactive bladder] 01-31-2025 Chronic Other diseases of bladder and urethra (1 source) Overactive bladder; Translations: [Overactive bladder] Onset: 5 Chronic Other diseases of kidney and ureters (9 sources) Renal mass; Translations: [Other specified disorders of kidney and ureter] 12-08-2023 Chronic Other ear and sense organ disorders (18 sources) Tinnitus; Translations: [Tinnitus, unspecified ear] 10-06-2020 Episodic Other gastrointestinal disorders (17 sources) Dark stools; Translations: [Other fecal abnormalities] 02-19-2024 Episodic Other gastrointestinal disorders (9 sources) Constipation; Translations: [Constipation, unspecified] 06-11-2024 Episodic Other hereditary and degenerative nervous system conditions (20 sources) Restless legs; Translations: [Restless legs syndrome] 10-01-2018 Chronic Other hereditary and degenerative nervous system conditions (7 sources) Restless legs syndrome; Translations: [Restless legs syndrome (RLS)] 07-05-2022 Chronic Other lower respiratory disease (17 sources) Dyspnea; Translations: [Shortness of breath] 09-03-2021 Episodic Other lower respiratory disease (3 sources) Shortness of breath; Translations: [Shortness of breath] Episodic Other lower respiratory disease (17 sources) Dyspnea on exertion; Translations: [Other forms of dyspnea] 10-27-2024 Episodic Other lower respiratory disease (2 sources) Other forms of dyspnea; Translations: [Other forms of dyspnea] Onset: 5 Episodic Other nervous system disorders (18 sources) H/O: hearing problem; Translations: [Personal history [...] Episodic Other nutritional; endocrine; and metabolic disorders (10 sources) Body mass index 30+ - obesity; Translations: [Obesity, unspecified] 08-13-2023 Chronic Other nutritional; endocrine; and metabolic disorders (1 source) Obesity, unspecified; Translations: [Obesity, unspecified] Onset: 5 Chronic Other screening for suspected conditions (not mental disorders or infectious disease) (20 sources) Patient encounter status; Translations: [Encounter for screening for malignant neoplasm of colon] Onset: 5 06-21-2022 Episodic Other skin disorders (20 sources) Actinic keratosis; Translations: [Disorder of skin] Onset: 7 01-06-2017 Episodic Comment on above: actinic keratosis wi th moderate atypia left nasal tip ACTINIC KERATOSIS, H YPERTROPHIC TYPE, WITH MODERATE ATYPIA LEFT NASAL TIP Other upper respiratory infections (20 sources) Chronic sinusitis; Translations: [Chronic sinusitis, unspecified] Chronic Other upper respiratory infections (13 sources) Acute sinusitis; Translations: [Acute sinusitis, unspecified] 05-02-2023 Episodic Residual codes; unclassified (20 sources) Obstructive sleep apnea syndrome; Translations: [Obstructive sleep apnea (adult) (pediatric)] 12-11-2018 Chronic Residual codes; unclassified (17 sources) Bilateral lower limb edema; Translations: [Localized edema] 09-03-2021 Episodic Residual codes; unclassified (3 sources) Localized edema; Translations: [Edema] Episodic Residual codes; unclassified (14 sources) Past history of procedure; Translations: [Other specified postprocedural states] 12-05-2021 Episodic Skin and subcutaneous tissue infections (19 sources) Cellulitis of hand; Translations: [Cellulitis of right upper limb] Onset: 6 04-22-2016 Episodic Comment on above: L03.113cat bite infe ction dorsum right hand at MP joint index finger with surrounding cellulitis extending onto index finger and onto distal dorsal forearm Spondylosis; intervertebral disc disorders; other back problems (18 sources) Back problem; Translations: [Dorsopathy, unspecified] 10-25-2019 Episodic Unclassified (1 source) Aftercare ; Translations: [Encounter for other specified surgical aftercare] Onset: 6 04-22-2016 Past or Other Problems Problem Classification Problem Date Documented Da te Episodic/Chronic Neoplasms of unspecified nature or uncertain behavior (5 sources) Neoplasm of soft tissue; 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] Onset: 05-22-2016 02-10-2017 Episodic Other bone disease and musculoskeletal deformities (1 source) Other specified disorders of bone density and structure, unspecified site; Translations: [Other specified disorders of bone density and structure, unspecified site] Onset: 10-27-2024 Episodic Other disorders of stomach and duodenum (1 source) Functional dyspepsia; Translations: [Functional dyspepsia] Onset: 04-28-2024 Episodic Other gastrointestinal disorders (1 source) Other fecal abnormalities; Translations: [Other fecal abnormalities] Onset: 11-05-2024 Episodic Unclassified (14 sources) 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 Eboni Katz MD Status:[facility] Patient Name: Georgia Ro Procedure Date: 02/28/2025 10:54 AM Date of : 1945 Age: 79 Procedure: Upper GI endoscopy Indications: Peptic ulcer Providers: Moustapha Stanley DO Referring MD: Eboni Katz MD Medicines: Monitored Anesthesia Care Patient Profile: This is a 79 year old female. Refer to note in patient chart for documentation of history and physical. Patient has symptoms of chronic epigastric abdominal pain. Complications: No immediate complications. Procedure: Pre-Anesthesia Assessment: [...] Examination: clear to auscultation. CV Examination: normal. ASA Grade Assessment: II - A patient [...] through the mouth, and advanced to the third part of the duodenum. Small bowel enteroscopy was deemed necessary. The upper GI endoscopy was accomplished without difficulty. The patient tolerated the procedure well. Scope In: 11:02:27 AM Scope Out: 11:04:00 AM Total Procedure Duration Time 0 hours 1 minute 33 seconds Findings: The examined esophagus was normal. Patchy mildly erythematous mucosa without bleeding was found in the gastric antrum. Biopsies were taken with a cold forceps for histology. Biopsies were taken with a cold forceps for Helicobacter pylori testing. Verification of patient identification for the specimen was done. Estimated blood loss was minimal. No gross lesions were noted in the entire examined duodenum. Impression: - Normal esophagus. - Erythematous mucosa in the antrum. Biopsied. - No gross lesions in the entire examined duodenum. Recommendation: - Discharge patient to home. - Resume previous diet. - Continue present medications. - Await pathology results. Procedure Code(s): --- Professional --- 58518, Small intestinal endoscopy, enteroscopy beyond second portion of duodenum, not including ileum; with biopsy, single or multiple CPT copyright 2021 [employer]. All rights reserved. The codes documented in this report are preliminary and upon signal tower director review may be revised to meet current compliance requirements. Moustapha Stanley DO 02/28/2025 11:12:31 AM This report has been signed electronically. Number of Addenda: 0 Note Initiated On: 02/28/2025 10:54 AM 02/28/251111 Date Moustapha Stanley DO Cosigner Signature: Date (if indicated) CC: Dr. Eboni Katz MD; Moustapha Stanley DO Date Dictated: 02/28/25 1054 Date Transcribed: Head Of Product: YENNY [facility] MR/OP.Nichelle 02-28-2025 MR/OP.[facility] Medical Records Department [address] [place] [id number] Provation Physician Letter MR#: [id number] Acct: [id number] Name: GEORGIA RO Rep #: [id number] : 1945 79 From: Moustapha Stanley DO PCP: Dr. Eboni Katz MD Status:[facility] 02/28/2025 Eboni Katz MD [address] [place] [address] [place] [address] Re : Upper GI endoscopy procedure for Georgia Ro Dear Dr. Katz This procedure was performed on Friday, February 28, 2025. My impressions and recommendations are as follows: Impressions : - Normal esophagus. - Erythematous mucosa in the antrum. Biopsied. - No gross lesions in the entire examined duodenum. Recommendations : - Discharge patient to home. - Resume previous diet. - Continue present medications. - Await pathology results. My findings are described in the full procedure note, which is enclosed. If I can be of further assistance, please feel free to contact me at . Sincerely, Moustapha Stanley DO 02/28/2025 11:12:31 AM This report has been signed electronically. 02/28/251111 Date Moustapha Rodriguez Signature: Date (if indicated) CC: Dr. Eboni Katz MD; Moustapha Stanley DO Date Dictated: 02/28/25 1054 Date Transcribed: Head Of Product: YENNY Signed [facility] MR/POSTOP.ANEon 02-28-2025 MR/POSTOP.[facility] Medical Records Department [address] [facility] [address] Anesthesia Postop Eval I 02/28/251115 MR#: [id number] Acct: [id number] Name: GEORGIA RO Rep #: [id number] : 1945 79 From: Kavin Bowers PCP: Dr. Eboni Katz MD Status:[facility] Y Race: C Location: [place] [address] Anesthesia: Postop Eval I Current Vital Signs Temperature: 97 F Pulse Rate: 72 Blood Pressure: 105/92 Respiratory Rate: 16 Pulse Ox: 98 Oxygen Delivery Method: Room Air Assessment Airway patent: Yes Spontaneous unlabored respirations: Yes Mental status: Awake and Calm nausea: No Vomiting: No Anesthesia Complication: No Fluid Hydration Crystalloid volume administer (ml): 400 Total IV fluid infused: 400 Progress Note Anesthesia document: Postop Eval 1 completed: Yes 02/28/251116 Date Kavin Lepe Signature: Date CC: Signed [facility] MR/[id number] 02-28-2025 MR/POST[address] Medical Records Department [address] [place] [address] Anesthesia Postop Eval II 02/28/25 1346 MR#: [id number] Acct: [id number] Name: GEORGIA RO Rep #: [id number] : 1945 79 From: Toby Cooley MD PCP: Dr. Eboni Katz MD Status:[facility] Y Race: C Location: [place] Anesthesia Postop Eval I Sum Postop Eval Completion status Anesthesia document: Postop Eval 1 completed: Yes Anesthesia Postop Eval I Summary Anesthesia Postop Eval I Summary: Anesthesia Postop Eval I: Assessment Summary Airway patent Yes 02/28/25 11:17 [email or web address] Spontaneous unlabored Yes 02/28/25 11:17 [email or web address] respirations Mental status Awake,Calm 02/28/25 11:17 [email or web address] nausea No 02/28/25 11:17 [email or web address] Vomiting No 02/28/25 11:17 [email or web address] Anesthesia Postop Eval I: Fluid Summary Crystalloid volume administer 400 02/28/25 11:17 [email or web address] (ml) Colloids volume administered ( ml) Blood Product volume administered (ml) Total IV fluid infused 400 02/28/25 11:17 [email or web address] Anesthesia Postop Eval I: Summary Notes Anesthesia Complication No 02/28/25 11:17 [email or web address] Anesthesia Complication Comment: Post-operative progress note Anesthesia: Postop Eval II Evaluation Mental status: Awake Pain Level: 0 nausea: No Vomiting: No Complications Anesthesia Complication: No 02/28/25 1346 Date Toby Cooley MD Cosigner Signature: Date CC: Signed Normal [facility] MR/Glenn 02-24-2025 MR/LAURYN [facility] Medical Records Department [address] [place] [address] PAT - Anesthesia 02/24/25 1447 MR#: [id number] Acct: [id number] Name: GEORGIA RO Rep #: [id number] : 1945 79 From: Toby Cooley MD PCP: Dr. 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 When Was Last Pacemaker Check QUESTION #4 FULL TEXT: You/Your Family Experience fever (hyperthermia) with Anesthesia Last Oral Intake Last Oral intake: Last Oral Intake NPO since Meds taken in AM with sips of water? 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 - manufacturing millwright: PONV - manufacturing millwright Female Yes 02/24/25 13:59 HX of Motion Sickness No 02/24/25 13:59 HX of N/V After Surgery Yes 02/24/25 13:59 Non-Smoker Yes 02/24/25 13:59 Duration of Surgery greater No 02/24/25 13:59 than 60 minutes Number of Risk Factors 3 02/24/25 13:59 PONV Score Moderate Risk 02/24/25 13:59 Height Weight Height Weight: Anesthesia: Height Weight Height 5 ft 6 in 12/27/24 10:58 Respiratory Assessment Respiratory Assessment - manufacturing millwright: Respiratory Tract Infection Hx - manufacturing millwright Hx Respiratory Tract Infection No 02/24/25 13:59 STOP Sleep Apnea STOP Sleep Apnea - manufacturing millwright: STOP Sleep Apnea - manufacturing millwright Hx Hypertension Yes: PER PT, CONTROLLED ON 02/24/25 13:59 MEDS Hx Sleep Apnea No 02/24/25 13:59 CPAP No 02/24/25 13:59 BIPAP No 02/24/25 13:59 Do you snore loudly (louder No 02/24/25 13:59 than talking or can be heard Do you often feel tired/ No 02/24/25 13:59 fatigued/ sleepy during daytime? Has anyone observed you stop No 02/24/25 13:59 breathing during sleep? STOP Results Negative 02/24/25 13:59 QUESTION #5 FULL TEXT : Do you snore loudly (louder than talking or can be heard through closed doors)? Tobacco Use History Tobacco Use History - manufacturing millwright: Tobacco Use History - manufacturing millwright Tobacco Use Smoking Status Never smoker 02/24/25 13:59 Hx Tobacco Use No 02/24/25 13:59 Years Smoking Packs Smoked per Day Smoking Cessation Date was within the last 15 years Hx Smoking Cessation Date Hx Smoking Cessation Counseling Hematologic Medial History Hematologic Hx - manufacturing millwright: Hematologic Medical Hx - cook jelly Hx of Blood Transfusion No 02/24/25 13:59 Hx of Transfusion in last 3 No 02/24/25 13:59 Months Date of Last Transfusion (if within last 3 months) Ever experience any problems No 02/24/25 13:59 with transfusion(s)? Specify any problems Hx of Preganancy in last 3 No 02/24/25 13:59 Months Nurse Filling Out Transfusion JENNIFER 02/24/25 13:59 Questions: Date: 02/24/25 02/24/25 13:59 Time: 14:01 02/24/25 13:59 Patient unable to answer at this time (ie. confused, unrespo /Reproduction History /Reproductive History - manufacturing millwright: /Reproductive Hx- manufacturing millwright Hx Now No 02/24/25 13:59 Gestational Age (in weeks): EDC: Hx Hx Para Hx Section SAB No 02/24/25 13:59 Does the father of the baby or his family experience fever w Father of the baby Malignant Hypertension history comment [facility] Medical History (Updated 02/24/25 @ 14:06 by Marry Steiner) Hypertension Encounter for immunization Overactive bladder Colitis Bladder disease Difficulty swallowing History of hiatal hernia Gastric reflux History of stress test Osteopenia PONV (postoperative nausea and vomiting) GI [...] extremity edema Flu vaccine need Health care mainten (more content not included)... Normal [facility] Internal Medicine Office Vis iton 01-31-2025 Internal Medicine Office Visit [facility] Internal Medicine [address] [place], [place] [address] OFFICE VISIT Date of Service: 01/31/25 MR#: [id number] Acct: [id number] Name: GEORGIA RO Rep #: [id number] : 1945 Provider: Dr. Eboni garcia MD Age/Sex: 79/F Location: [facility] Status: Signed Intake Vital Signs 10/27/24 09:41 12/27/24 10:58 01/31/25 08:05 Height 5 ft 6 in 5 ft 6 in 5 ft 6 in Weight: 198 lb 8 oz 197 lb BMI 32.0 31.8 BP 131/77 H 112/70 Blood Pressure Location Lt brachial Lt brachial Position Sitting Sitting Respiration 16 14 Pulse 63 72 Pulse Source Monitor Monitor Temp 98.3 F 97.1 F L Temp Source Temporal Pulse Oximetry (%) 98 95 Oxygen Delivery Method room air room air Intake Visit Reasons: 3 M FU Chief Complaint: Follow-up chronic conditions Rn On Site Required: No Accompanied by: Is patient in pain?: No Allergies lisinopril (From Zestril) Adverse Reaction (Intermediate, Verified 01/31/25 07:52) Cough hydrocodone bitartrate (From Vicodin) Adverse Reaction (Mild, Verified 01/31/25 07:52) Itching Medications ???Medication ???Instructions ???Recorded ???Confirmed ???Type multivitamin with iron 1 tab PO DAILY 03/31/13 01/31/25 H istory biotin 2,500 mcg capsule 2,500 mcg PO ONCE 07/15/17 5 History celecoxib 200 mg capsule (Celebrex) 200 mg PO DAILY PRN pain #90 ca ps 09/16/23 01/31/25 Rx hydrochlorothiazide 25 mg tablet See Rx Instructions .Route 5 01/31/25 Rx .COMPLEX #90 tabs ropinirole 0.5 mg tablet 0.5 mg PO TID #360 tabs 06/28/24 1 Rx losartan 100 mg tablet 100 mg PO DAILY 3 months #90 tabs 09/06/24 01/31/25 Rx oxybutynin chloride 10 mg 10 mg PO QDAY #90 tabs 09/06/24 Rx tablet,extended release 24 hr amlodipine 5 mg tablet 7.5 mg (1.5 x 5 mg) PO DAILY 3 06/1501/31/25 Rx months #135 tabs aspirin 81 mg tablet 81 mg PO QDAY 10/27/24 01/31/25 Hi story pantoprazole 40 mg tablet,delayed 40 mg PO BID #180 tabs 10/27/24 1 Rx release metformin 500 mg tablet,extended 500 mg PO BID #90 tabs 01/03/25 Rx release 24 hr budesonide 3 mg 9 mg (3 x 3 mg) PO QAM 8 weeks 01/31/25 Rx capsule,delayed,extende d release #168 ea ondansetron 4 mg disintegrating 4 mg PO Q8H #20 tabs 01/07/2501/19 Rx tablet sucralfate 1 gram tablet 1 g PO BID #60 tabs 01/10/2501/31 Rx potassium chloride 20 mEq 20 meq PO BID #180 tabs 01/31/25 1 Rx tablet,extended release tirzepatide (weight loss) 2.5 2.5 mg (0.5 mL) subcut QWEEK #2 mL 01/31/25 01/31/25 Rx mg/0.5 mL subcutaneous pen injector (Zepbound) Have you fallen in the past year?: No Nurse's Note: Pt would like to discuss weight loss option ideal goal weight is 150-160. Pt rhodes michael no success w/ diet and excercise. Pt needs K+ refilled [facility] Medical History (Updated 01/31/25 @ 09:[address] Eboni Katz MD) Encounter for immunization Overactive bladder Colitis Bladder disease Difficulty swallowing History of hiatal [...] hypertension Generalized osteoarthritis Surgical History History of surgical removal of skin lesion [...] Breast cancer Grandmother Breast cancer Sister Lung canc (more content not included)... Normal [facility] Gastroenterology Visit Repor ton 01-07-2025 Gastroenterology Visit Report [facility] Gastroenterology [address] [place] [address] OFFICE VISIT Date of Service: 01/07/25 MR#: [id number] Acct: [id number] Name: GEORGIA RO ANN Rep #: [id number] : 1945 Provider: BHANU Muñoz Age/Sex: 79/F Location: [facility] Status: Signed Intake Vital Signs 12/27/24 10:58 Height 5 ft 6 in Weight: 198 lb 8 oz BMI 32.0 BP 131/77 H Blood Pressure Location Lt brachial Position Sitting Respiration 16 Pulse 63 Pulse Source Monitor Temp 98.3 F Pulse Oximetry (%) 98 Oxygen Delivery Method room air Intake Visit Reasons: Procedure F/U/ Abd Pain Chief Complaint: Nausea Allergies lisinopril (From Zestril) Adverse Reaction (Intermediate, Verified 12/27/24 10:57) Cough hydrocodone bitartrate (From Vicodin) Adverse Reaction (Mild, Verified 12/27/24 10:57) Itching Medications ???Medication ???Instructions ???Recorded ???Confirmed ???Type multivitamin with iron 1 tab PO DAILY 03/31/13 01/07/25 H istory biotin 2,500 mcg capsule 2,500 mcg PO ONCE 07/15/17 5 History celecoxib 200 mg capsule (Celebrex) 200 mg PO DAILY PRN pain #90 ca ps 09/16/23 01/07/25 Rx potassium chloride 20 mEq 20 meq PO BID #180 tabs 01/26/24 0 01/07/25 Rx tablet,extended release hydrochlorothiazide 25 mg tablet See Rx Instructions .Route 5 01/07/25 Rx .COMPLEX #90 tabs ropinirole 0.5 mg tablet 0.5 mg PO TID #360 tabs 06/28/24 0 01/07/25 Rx losartan 100 mg tablet 100 mg PO DAILY 3 months #90 tabs 09/06/24 01/07/25 Rx oxybutynin chloride 10 mg 10 mg PO QDAY #90 tabs 09/06/24 Rx tablet,extended release 24 hr amlodipine 5 mg tablet 7.5 mg (1.5 x 5 mg) PO DAILY 3 06/1501/07/25 Rx months #135 tabs acetaminophen 325 mg tablet 650 mg PO Q4H PRN PRN Pain Or Feve r 10/27/24 01/07/25 History aspirin 81 mg tablet 81 mg PO QDAY 10/27/24 01/07/25 Hi story pantoprazole 40 mg tablet,delayed 40 mg PO BID #180 tabs 10/27/24 0 01/07/25 Rx release metformin 500 mg tablet,extended 500 mg PO BID #90 tabs 01/03/25 Rx release 24 hr budesonide 3 mg 9 mg (3 x 3 mg) PO QAM 8 weeks 01/07/25 Rx capsule,delayed,extende d release #168 ea ondansetron 4 mg disintegrating 4 mg PO Q8H #20 tabs 01/07/2512/20 Rx tablet Have you fallen in the past year?: No PFSH Medical History Bladder disease Difficulty swallowing History of hiatal [...] hypertension Generalized osteoarthritis Surgical History History of surgical removal of skin lesion [...] SUN EXPOSURE: FREQUENTLY HPI HPI Chief Complaint: Nausea Details: GEORGIA RO, is a 79 F who presents to the office today for follow-up. I established 11..24 with complaints of burning esophageal/epigastric pain, nausea and black stools. Presented to the ED with these symp (more content not included)... Normal [facility] Absolute lymphocyte countOrd ered By: [facility] Maria A on 12-27-2024 Lymphocytes Auto (Unsp spec) [#/Vol] 2.20 10*3/uL 0.83-4.51 [facility] Absolute neutrophil countOrd ered By: [facility] Maria A on 12-27-2024 Neutrophils (Bld) [#/Vol] 3.3 10*3/uL 2.0-7.7 [facility] Anion gap in Serum or Plasma [facility] 12-27-2024 Anion gap [Moles/Vol] 12 mmol/L 5- [facility] Automated lymphocyte count a s percentage of total leukocytesOrdered By: [facility] Maria A on 12-27-2024 Lymphocytes/100 WBC Auto (Unsp spec) 34.9 % - [facility] BUN/creatinine ratioOrdered By: [facility] Maria A on 12-27-2024 Urea nitrogen/Creatinine [Mass ratio] 16.4 mg/mg 10- [facility] Basophil percentageOrdered B y: Konstantin Saha on 12-27-2024 Basophils/100 WBC (Bld) 1.0 % 0-1 [facility] Bilirubin, totalOrdered By: [facility] on 12-27-2024 Bilirubin [Mass/Vol] 0.58 mg/dL 0.00-1.30 [facility] CBC W/Diff, Automatedon Absolute Lymph 2.20 X10 3/uL Normal 0.83-4.51 [facility] Comment on above: Performed By: #### L 504.2610, L500.4050, L100.0100 #### [facility] [address] [place], [address] Absolute Neut 3.3 X10 3/uL Normal 2.0-7.7 [facility] Comment on above: Performed By: #### L 504.2610, L500.4050, L100.0100 #### [facility] [address] [place], [address] Basophils/100 WBC (Bld) 1.0 % Normal 0-1 [facility] Comment on above: Performed By: #### L 504.2610, L500.4050, L100.0100 #### [facility] [address] [place], [address] Eosinophils/100 WBC (Bld) 1.9 % Normal 0-5 [facility] Comment on above: Performed By: #### L 504.2610, L500.4050, L100.0100 #### [facility] [address] [place], [address] Erythrocyte distribution width (RBC) [Ratio] 13.2 % Normal 11.6-14.6 [facility] Comment on above: Performed By: #### L 504.2610, L500.4050, L100.0100 #### [facility] [address] [place], [address] Hematocrit (Bld) [Volume fraction] 39.0 % Normal 37-47 [facility] Comment on above: Performed By: #### L 504.2610, L500.4050, L100.0100 #### [facility] [address] [place], [address] Hemoglobin (Bld) [Mass/Vol] 13.3 g/dL Normal 12.0-15.0 [facility] Comment on above: Performed By: #### L 504.2610, L500.4050, L100.0100 #### [facility] [address] [place], [address] IG% 0.500 Normal 0.0-0.9 [facility] Comment on above: Result Comment: IG% - Immature Granulocytes (promyelocytes, myelocytes and metamyelocytes) > 1% indicates that a LEFT SHIFT is Present. Performed By: #### L 504.2610, L500.4050, L100.0100 #### [facility] [address] [place], [address] Lymphocytes/100 WBC (Bld) 34.9 % Normal 19-41 [facility] Comment on above: Performed By: #### L 504.2610, L500.4050, L100.0100 #### [facility] [address] [place], [address] MCH (RBC) [Entitic mass] 30.4 pg Normal 27.0-32.0 [facility] Comment on above: Performed By: #### L 504.2610, L500.4050, L100.0100 #### [facility] [address] [place], [address] MCHC (RBC) [Mass/Vol] 34.1 g/dL Normal 32-36 [facility] Comment on above: Performed By: #### L 504.2610, L500.4050, L100.0100 #### [facility] [address] [place], [address] MCV (RBC) [Entitic vol] 89.0 fL Normal 81-99 [facility] Comment on above: Performed By: #### L 504.2610, L500.4050, L100.0100 #### [facility] [address] [place], [address] Monocytes/100 WBC (Bld) 9.8 % Normal 0-10 [facility] Comment on above: Performed By: #### L 504.2610, L500.4050, L100.0100 #### [facility] [address] [place], [address] Neutrophils/100 WBC (Bld) 51.9 % Normal 47-70 [facility] Comment on above: Performed By: #### L 504.2610, L500.4050, L100.0100 #### [facility] [address] [place], [address] Nucleated RBC (Bld) [#/Vol] 0 10*3/uL Normal 0-5 [facility] Comment on above: Performed By: #### L 504.2610, L500.4050, L100.0100 #### [facility] [address] [place], [address] Platelet mean volume (Bld) [Entitic vol] 10.6 fL Normal 6.2-12.0 [facility] Comment on above: Performed By: #### L 504.2610, L500.4050, L100.0100 #### [facility] [address] [place], [address] Platelets (Bld) [#/Vol] 208 10*3/uL Normal 150-450 [facility] Comment on above: Performed By: #### L 504.2610, L500.4050, L100.0100 #### [facility] [address] [place], [address] RBC (Bld) [#/Vol] 4.38 10*6/uL Normal 4.2-5.4 [facility] Comment on above: Performed By: #### L 504.2610, L500.4050, L100.0100 #### [facility] [address] [place], [address] RDW SD 43.3 fl Normal 35.1-43.9 [facility] Comment on above: Performed By: #### L 504.2610, L500.4050, L100.0100 #### [facility] [address] [place], [address] WBC (Bld) [#/Vol] 6.3 10*3/uL Normal 4.4-11.0 [facility] Comment on above: Performed By: #### L 504.2610, L500.4050, L100.0100 #### [facility] [address] [place], [address] Carbon dioxide, total [Moles /volume] in Central venous bloodOrdered By: Konstantin Saha on 12-27-2024 CO2 [Moles/Vol] 25.5 mmol/L 21.0-32.0 [facility] Chloride assayOrdered By: Nick Saha on 12-27-2024 Chloride [Moles/Vol] 102 mmol/L 98-108 [facility] Comprehensive Metabolic Prof ilon 12-27-2024 Albumin [Mass/Vol] 4.2 g/dL Normal 3.4-4.8 [facility] Comment on above: Performed By: #### L 504.2610, L500.4050, L100.0100 #### [facility] [address] [place], [address] Albumin/Globulin [Mass ratio] 1.6 {ratio} Normal 0.9-2.4 [facility] Comment on above: Performed By: #### L 504.2610, L500.4050, L100.0100 #### [facility] [address] [place], [address] ALK PHOS 83 U/L Normal 35-104 [facility] Comment on above: Performed By: #### L 504.2610, L500.4050, L100.0100 #### [facility] [address] [place], [address] ALT [Catalytic activity/Vol] 15 U/L Normal <=34 [facility] Comment on above: Performed By: #### L 504.2610, L500.4050, L100.0100 #### [facility] [address] [place], [address] AST [Catalytic activity/Vol] 21 U/L Normal <=31 [facility] Comment on above: Performed By: #### L 504.2610, L500.4050, L100.0100 #### [facility] [address] [place], [address] Bilirubin [Mass/Vol] 0.58 mg/dL Normal 0.00-1.30 [facility] Comment on above: Performed By: #### L 504.2610, L500.4050, L100.0100 #### [facility] [address] [place], [address] BUN/CRE 16.4 RATIO Normal 10-20 [facility] Comment on above: Performed By: #### L 504.2610, L500.4050, L100.0100 #### [facility] [address] [place], [address] Calcium [Mass/Vol] 9.9 mg/dL Normal 7.6-11.0 [facility] Comment on above: Performed By: #### L 504.2610, L500.4050, L100.0100 #### [facility] [address] [place], [address] Chloride [Moles/Vol] 102 mmol/L Normal 98-108 [facility] Comment on above: Performed By: #### L 504.2610, L500.4050, L100.0100 #### [facility] [address] [place], [address] CO2 [Moles/Vol] 25.5 mmol/L Normal 21.0-32.0 [facility] Comment on above: Performed By: #### L 504.2610, L500.4050, L100.0100 #### [facility] [address] [place], [address] Creatinine [Mass/Vol] 1.03 mg/dL Normal 0.70-1.20 [facility] Comment on above: Performed By: #### L 504.2610, L500.4050, L100.0100 #### [facility] [address] [place], [address] ECRCL 52.94 ml/min Normal 50-250 [facility] Comment on above: Performed By: #### L 504.2610, L500.4050, L100.0100 #### [facility] [address] [place], [address] GAP 12 Normal 5-15 [facility] Comment on above: Performed By: #### L 504.2610, L500.4050, L100.0100 #### [facility] [address] [place], [address] GFR/1.73 sq M.predicted among non-blacks MDRD (S/P/Bld) [Vol rate/Area] 56 mL/min/{1.73_m2} Low >60 [facility] Comment on above: Result Comment: mL/m in/1.73m2 CKD-EPI Creatinine Equation (2020) Performed By: #### L 504.2610, L500.4050, L100.0100 #### [facility] [address] [place], [address] Globulin (S) [Mass/Vol] 2.7 g/dL Normal 2.2-4.2 [facility] Comment on above: Performed By: #### L 504.2610, L500.4050, L100.0100 #### [facility] [address] [place], [address] Glucose [Mass/Vol] 113 mg/dL High 70-99 [facility] Comment on above: Performed By: #### L 504.2610, L500.4050, L100.0100 #### [facility] [address] [place], [address] Potassium [Moles/Vol] 4.4 mmol/L Normal 3.3-5.1 [facility] Comment on above: Performed By: #### L 504.2610, L500.4050, L100.0100 #### [facility] [address] [place], [address] Sodium [Moles/Vol] 139 mmol/L Normal 133-145 [facility] Comment on above: Performed By: #### L 504.2610, L500.4050, L100.0100 #### [facility] [address] [place], [address] T PROT 6.8 g/dL Normal 5.9-8.4 [facility] Comment on above: Performed By: #### L 504.2610, L500.4050, L100.0100 #### [facility] [address] [place], [address] Urea nitrogen [Mass/Vol] 17 mg/dL Normal 4-19 [facility] Comment on above: Performed By: #### L 504.2610, L500.4050, L100.0100 #### [facility] [address] [place], [address] Eosinophil percentageOrdered By: Konstantin Saha on 12-27-2024 Eosinophils/100 WBC (Bld) 1.9 % 0-5 [facility] Erythrocyte distribution wid th ratioOrdered By: [facility] S[facility] on 12-27-2024 Erythrocyte distribution width (RBC) [Ratio] 13.2 % 11.6-14.6 [facility] Erythrocyte distribution wid th standard deviationOrdered By: [facility] Saha on 12-27-2024 Erythrocyte distribution width (RBC) [Ratio] 43.3 fl 35.1-43.9 [facility] Glomerular filtration rate ( GFR) estimation/1.73 sq m using serum, plasma, or whole bOrdered By: Konstantin Saha on 12-27-2024 GFR/1.73 sq M.predicted among non-blacks MDRD (S/P/Bld) [Vol rate/Area] 56 mL/min/{1.73_m2} Low >60 [facility] Comment on above: mL/min/1.73m2 CKD-EP I Creatinine Equation (2020) Hematocrit Auto (Bld) [Volum e fraction]Ordered By: Konstantin Saha on 12-27-2024 Hematocrit (Bld) [Volume fraction] 39.0 % 37-47 [facility] Hemoglobin measurementOrdere d By: Konstantin Saha on 12-27-2024 Hemoglobin (Bld) [Mass/Vol] 13.3 g/dL 12.0-15.0 [facility] Immature granulocytes/100 WB C Auto (Bld)Ordered By: Konstantin Saha on 12-27-2024 Immature granulocytes/100 WBC (Bld) 0.500 % 0.0-0.9 [facility] Comment on above: IG% - Immature Granu locytes (promyelocytes, myelocytes and metamyelocytes) > 1% indicates that a LEFT SHIFT is Present. LDHon 12-27-2024 LDH 191 U/L Normal 84-246 [facility] Comment on above: Order Comment: 1 Performed By: #### L 504.2610, L500.4050, L100.0100 #### [facility] [address] [place] [address], [address] Laboratory - Chemistry and C hemistry - challengeOrdered By: [facility] on 12-27-2024 AST [Catalytic activity/Vol] 21 U/L <32 [facility] Lactate dehydrogenase (LDH) measurementOrdered By: Konstantin Saha on 12-27-2024 LDH [Catalytic activity/Vol] 191 U/L 84-246 [facility] MCV (mean corpuscular volume ) determinationOrdered By: Konstantin Saha on 12-27-2024 MCV (RBC) [Entitic vol] 89.0 fL 81-99 [facility] Mean corpuscular hemoglobin (MCH) determinationOrdered By: Konstantin Saha on 12-27-2024 MCH (RBC) [Entitic mass] 30.4 pg 27.0-32.0 [facility] Mean corpuscular hemoglobin concentration (MCHC) determinationOrdered By: Konstantin Saha on 12-27-2024 MCHC (RBC) [Mass/Vol] 34.1 g/dL 32-36 [facility] Mean platelet volume determi nationOrdered By: Konstantin Saha on 12-27-2024 Platelet mean volume (Bld) [Entitic vol] 10.6 fL 6.2-12.0 [facility] Monocyte percentageOrdered B y: Konstantin Saha on 12-27-2024 Monocytes/100 WBC (Bld) 9.8 % 0-10 [facility] Neutrophil percentageOrdered By: [facility] S[facility] on 12-27-2024 Neutrophils/100 WBC (Bld) 51.9 % 47-70 [facility] Nucleated red blood cell per centageOrdered By: [facility] S[facility] on 12-27-2024 Nucleated RBC/100 WBC (Bld) [Ratio] 0 % 0-5 [facility] Oncology Visit Reporton Oncology Visit Report [facility] [place] [facility] [address] [place] [address] OFFICE VISIT Date of Service: 12/27/24 1040 MR#: [id number] Acct: [id number] Name: GEORGIA RO ANN Rep #: [id number] : 1945 From: Rachelle Graham NP [employer]PAR[employer] OPERATOR -C Age/Sex: 79/F Location: [facility] Status: Signed HPI Subjective Date of Service 12/27/24 Chief Complaint Lymphoma History of Present Illness 79-year-old female who presented with self palpated painless [...] other quantitatively significant hypermetabolic abnormalities are encountered. Interval History The patient is presenting to clinic for a planned 6 month follow up. She denies any concerns r/t today's visit. Specifically denies changes in left axillary adenopathy, no lymphadenopathy, dysphagia, night sweats, weight loss- unintentional, CP, palpitations, cough, abd pain. No change in chronic BLE, mostly pedal. + Exertional dyspnea with stairs only, describes as mild and unchanged. Since her last OV in June she was referred to GI with self reported c/o melena November 2024. She underwent EGD/colonoscopy 12/17/24. Op notes indicate the presence of non-bleeding gastric ulcer, diverticulitis in the recto-sigmoid, sigmoid, and descendign colon, colitis within the sigmoid colon, two 8 mm polyps in the cecum (path is still pending). Of note, no evidence of anemia and she no longer reports melena. [facility] Medical History Bladder disease Difficulty swallowing History of hiatal [...] hypertension Generalized osteoarthritis Surgical History History of surgical removal of skin lesion [...] history: - Manuel SUN EXPOSURE: FREQUENTLY ROS ROS Narrative Negative except as documented in the interval HPI Intake Vital Signs 06/24/24 11:32 12/17/24 06:25 12/27/24 10:43 12/27/24 10:58 Height 5 ft 6 in 5 ft 6 in 5 ft 6 in 5 ft 6 in Weight: 198 lb 8 oz BMI 32.0 BP 131/77 H Blood Pressure Location Lt brachial Position Sitting Respiration 16 Pulse 63 Pulse Source Monitor Temp 98.3 F Tem (more content not included)... Normal [facility] Platelet countOrdered By: Nick Saha on 12-27-2024 Platelets (Bld) [#/Vol] 208 10*3/uL 150-450 [facility] Potassium measurement (mass/ volume)Ordered By: Konstantin Saha on 12-27-2024 Potassium (Unsp spec) [Mass/Vol] 4.4 mmol/L 3.3-5.1 [facility] RBC Auto (Bld) [#/Vol]Ordere d By: Konstantin Saha on 12-27-2024 RBC (Bld) [#/Vol] 4.38 10*6/uL 4.2-5.4 [facility] Serum creatinine measurement (mass/volume)Ordered By: Konstantin Saha on 12-27-2024 Creatinine [Mass/Vol] 1.03 mg/dL 0.70-1.20 [facility] Serum globulin measurementOr dered By: Konstantin Saha on 12-27-2024 Globulin (S) [Mass/Vol] 2.7 g/dL 2.2-4.2 [facility] Serum glucose measurement (m ass/volume)Ordered By: Konstantin Saha on 12-27-2024 Glucose [Mass/Vol] 113 mg/dL High 70-99 [facility] Serum or plasma alanine rocha otransferase (ALT) measurementOrdered By: Konstantin Pleitezmarcelino on 12-27-2024 ALT [Catalytic activity/Vol] 15 U/L <35 [facility] Serum or plasma albumin jose l urement (mass/volume)Ordered By: Konstantin Pleitezmarcelino on 12-27-2024 Albumin [Mass/Vol] 4.2 g/dL 3.4-4.8 [facility] Serum or plasma albumin/glob ulin mass ratioOrdered By: Konstantin Pleitezmarcelino on 12-27-2024 Albumin/Globulin [Mass ratio] 1.6 {ratio} 0.9-2.4 [facility] Serum or plasma alkaline kamaljit sphatase measurementOrdered By: Konstantin Pleitezmarcelino on 12-27-2024 ALP [Catalytic activity/Vol] 83 U/L 35-104 [facility] Serum or plasma calcium jose l urement (mass/volume)Ordered By: Konstantin Pleitezmarcelino on 12-27-2024 Calcium [Mass/Vol] 9.9 mg/dL 7.6-11.0 [facility] Serum or plasma urea nitroge n measurement (mass/volume)Ordered By: Konstantin Maria A on 12-27-2024 Urea nitrogen [Mass/Vol] 17 mg/dL 4-19 [facility] Sodium levelOrdered By: Yang de leon Maria A on 12-27-2024 Sodium [Moles/Vol] 139 mmol/L 133-145 [facility] Total proteinOrdered By: Hang raudel Pricillamarcelino on 12-27-2024 Protein [Mass/Vol] 6.8 g/dL 5.9-8.4 [facility] White blood cell (WBC) count Ordered By: Konstantin Maria A on 12-27-2024 WBC (Bld) [#/Vol] 6.3 10*3/uL 4.4-11.0 [facility] Colonoscopy Reporton 025 Colonoscopy Report [facility] Medical Records Department [address] [place] [address] Colonoscopy Report MR#: [id number] Acct: [id number] Name: GEORGIA RO ANN Rep #: [id number] : 1945 79 From: Moustapha Friend DO PCP: Dr. Eboni Katz MD Status:[facility] Patient Name: Georgia Ro Procedure Date: 12/17/2024 7:27 AM Date of : 1945 Age: 79 Procedure: Colonoscopy Indications: Hematochezia Providers: Moustapha Stanley DO Referring MD: Eboni Katz MD Medicines: Monitored Anesthesia Care Patient Profile: This is a 79 year old female. Refer to note in patient chart for documentation of history and physical. Patient has symptoms of acute left upper quadrant abdominal pain, acute left lower quadrant abdominal pain and acute epigastric abdominal pain. Last Colonoscopy: several years ago. Complications: No immediate complications. Procedure: Pre-Anesthesia Assessment: [...] patient was re-assessed after the procedure. After I obtained informed consent, the scope was passed under direct vision. Throughout the procedure, the patient's blood pressure, pulse, and oxygen saturations were monitored continuously. The Colonoscope was introduced through the anus and advanced to the terminal ileum. The colonoscopy was performed without difficulty. The patient tolerated the procedure well. Scope In: 7:29:01 AM Scope Out: 7:54:14 AM Total Procedure Duration Time 0 hours 25 minutes 13 seconds Findings: The perianal and digital rectal examinations were normal. Multiple small and large-mouthed diverticula were found in the recto-sigmoid colon, sigmoid colon and descending colon. Segmental moderate inflammation characterized by congestion (edema), erythema, friability and granularity was found in the rectum and in the sigmoid colon. Two sessile polyps were found in the cecum. The polyps were 8 mm in size. These polyps were removed with a jumbo cold forceps. Resection and retrieval were complete. Verification of patient identification for the specimen was done. Estimated blood loss was minimal. Impression: - Diverticulosis in the recto-sigmoid colon, in the sigmoid colon and in the descending colon. - Segmental moderate inflammation was found in the rectum and in the sigmoid colon secondary to colitis. - Two 8 mm polyps in the cecum, removed with a jumbo cold forceps. Resected and retrieved. Recommendation: - Repeat colonoscopy in 5 years for surveillance. - Continue present medications. Procedure Code(s): --- Professional --- 84735, Colonoscopy, flexible; with biopsy, single or multiple CPT copyright 2021 [employer]. All rights reserved. The codes documented in this report are preliminary and upon signal tower director review may be revised to meet current compliance requirements. Moustapha Stanley DO 12/17/2024 8:05:49 AM This report has been signed electronically. Number of Addenda: 0 Note Initiated On: 12/17/2024 7:27 AM 12/17/24804 Date Moustapha Stanley DO Cosigner Signature: Date (if indicated) CC: Dr. Eboni Katz MD; Moustapha Stanley DO Date Dictated: 12/17/24 0727 Date Transcribed: Head Of Product: YENNY Signed Normal [facility] EGD Reporton 12-17-2024 EGD Report [facility] Medical Records Department [address] [place] [address] EGD Report MR#: [id number] Acct: [id number] Name: GEORGIA RO Rep #: [id number] : 1945 79 From: Moustapha Stanley DO PCP: Dr. Eboni Katz MD Status:[facility] Patient Name: Georgia Ro Procedure Date: 12/17/2024 7:11 AM Date of : 1945 Age: 79 Procedure: Upper GI endoscopy Indications: Epigastric abdominal pain, Abdominal pain in the left upper quadrant, Abdominal pain in the left lower quadrant, Acute post hemorrhagic anemia, Melena Providers: Moustapha Stanley DO Referring MD: Eboni Katz MD Medicines: Monitored Anesthesia Care Patient Profile: This is a 79 year old female. Refer to note in patient chart for documentation of history and physical. Patient has symptoms of acute left upper quadrant abdominal pain, acute left lower quadrant abdominal pain and acute epigastric abdominal pain. Complications: No immediate complications. Procedure: Pre-Anesthesia Assessment: [...] and oxygen saturations were monitored continuously. The Colonoscope was introduced through the mouth, and advanced to the third part of the duodenum. Small bowel enteroscopy was deemed necessary. The upper GI endoscopy was accomplished without difficulty. The patient tolerated the procedure well. Scope In: 7:23:51 AM Scope Out: 7:27:25 AM Total Procedure Duration Time 0 hours 3 minutes 34 seconds Findings: The examined esophagus was normal. One non-bleeding linear gastric ulcer with no stigmata of bleeding was found at the pylorus. The lesion was 5 mm in largest dimension. Biopsies were taken with a cold forceps for Helicobacter pylori testing. Biopsies were taken with a cold forceps for histology. Verification of patient identification for the specimen was done. Estimated blood loss was minimal. The examined duodenum was normal. Impression: - Normal esophagus. - Non-bleeding gastric ulcer with no stigmata of bleeding. Biopsied. - Normal examined duodenum. Recommendation: - Discharge patient to home. - Resume previous diet. - Continue present medications. - Await pathology results. Procedure Code(s): --- Professional --- 31883, Small intestinal endoscopy, enteroscopy beyond second portion of duodenum, not including ileum; with biopsy, single or multiple CPT copyright 2021 [employer]. All rights reserved. The codes documented in this report are preliminary and upon signal tower director review may be revised to meet current compliance requirements. Moustapha Stanley DO 12/17/2024 8:00:23 AM This report has been signed electronically. Number of Addenda: 0 Note Initiated On: 12/17/2024 7:11 AM 12/17/24 08 Date Moustapha Stanley DO Cosignviolette Signature: Date (if indicated) CC: Dr. Eboni Katz MD; Moustapha Stanley DO Date Dictated: 12/17/24 0711 Date Transcribed: Head Of Product: YENNY Signed Normal [facility] Immunohistochemical Stainson 12-17-2024 Immunohistochemical Stains Patient Age/Sex Location Account Attending Physician GEORGIA RO 79/F EN [id number] Moustapha Stanley DO Specimen: [id number] Received: 12/17/24-1019 Status: VIVEK Jones Num: [id number] Spec Type: COLON BX Subm Dr: Moustapha Stanley DO HEADER OPERATION: Colonoscopy, EGD with biopsy, polypectomy PRE-OP DIAGNOSIS: Abdominal pain, GI bleed TISSUE SUBMITTED: A- Pyloric sphincter ulcer, B- Cecum polyp, C- Sigmoid colitis, D- Rectal colitis MICROSCOPIC DIAGNOSIS A. Pyloric sphincter, biopsy: - Gastric mucosa with active chronic gastritis. - IHC negative for H.pylori organisms. B. Cecum, polyp, biopsy: - Tubular adenoma (one fragment). - Hyperplastic polyp (one fragment). C. Sigmoid colon, biopsy: - Focal active colitis - see Comment. D. Rectum, biopsy: - Focal active colitis - see Comment. COMMENT C, D) Focal mild acute inflammation is noted without features of chronicity. This is a nonspecific finding which may result from bowel prep artifact, mild infection, medication injury (eg: NSAIDs) and ischemia. Recommend correlation with clinical and endoscopic findings. MICROSCOPIC DESCRIPTION Slides are reviewed. ???All matched controls reacted appropriately. These tests were developed and their performance characteristics determined by [facility]. They may not have been cleared or approved by the U.S. Food and Drug Administration. The FDA has determined that such clearance or approval is not necessary.??? The above immunohistochemical???m arkers and/or special stains have been reviewed by the Pathologist. GROSS DESCRIPTION A. Received in fixative is one container labeled with the patient's name and designated Pyloric sphincter ulcer. The specimen consists of two irregular fragments of light amin soft tissue, each measuring 0.4 cm. The specimen is totally submitted in one cassette. B. Received in fixative is one container labeled with the patient's name and designated Patient Age/Sex Location Account Attending Physician GEORGIA RO 79/F EN [id number] Moustapha Stanley, Cecum polyp. The specimen consists of two irregular fragments of light amin soft tissue, each measuring 0.4 cm. The specimen is totally submitted in one cassette. C. Received in fixative is one container labeled with the patient's name and designated Sigmoid colitis. The specimen consists of four irregular fragments of light amin soft tissue that measure <0.1 to 0.4 cm. Smaller fragments may not survive processing. The specimen is totally submitted in one cassette. D. Received in fixative is one container labeled with the patient's name and designated Rectal colitis. The specimen consists of one irregular fragment of light amin soft tissue that measures 0.5 cm. The specimen is totally submitted in one cassette. HI 12/17/2024 [facility]:[id number] Patient Age/Sex Location Account Attending Physician GEORGIA RO 79/F RAINE [id number] Moustapha Stanley DO Signed (signature on file) Dr. Namrata Garnica MD 01/04/25 0917 Normal [facility] Comment on above: Performed By: #### L 504.2610, L500.4050, L100.0100 #### [facility] [address] [place], [address] MR/OP.[facility] Medical Records Department [address] [place] [address] Provation Physician Letter MR#: [id number] Acct: [id number] Name: GEORGIA RO Rep #: [id number] : 1945 79 From: [facility] Friend DO PCP: Dr. Eboni Katz MD Status:[facility] 12/17/2024 Eboni Katz MD [address] [place] [address] [place] [address] Re : Colonoscopy procedure for Georgia Ro Dear Dr. Katz This procedure was performed on Tuesday, December 17, 2024. My impressions and recommendations are as follows: Impressions : - Diverticulosis in the recto-sigmoid colon, in the sigmoid colon and in the descending colon. - Segmental moderate inflammation was found in the rectum and in the sigmoid colon secondary to colitis. - Two 8 mm polyps in the cecum, removed with a jumbo cold forceps. Resected and retrieved. Recommendations : - Repeat colonoscopy in 5 years for surveillance. - Continue present medications. My findings are described in the full procedure note, which is enclosed. If I can be of further assistance, please feel free to contact me at . Sincerely, Moustapha Stanley DO 12/17/2024 8:05:49 AM This report has been signed electronically. 12/17/24804 Date Moustapha Stanley DO Cosigner Signature: Date (if indicated) CC: Dr. Eboni Katz MD; Moustapha Stanley DO Date Dictated: 12/17/24726 Date Transcribed: Head Of Product: YENNY Signed [facility] MR/OP.[facility] Medical Records Department [address] [place], [place] [address] [place] [address] Physician Letter MR#: [id number] Acct: [id number] Name: GEORGIA RO Rep #: [id number] : 1945 79 From: Moustapha Stanley DO PCP: Dr. Eboni Katz MD Status:[facility] 12/17/2024 Eboni Katz MD [address] [place] [address] [place] [address] Re : Upper GI endoscopy procedure for Georgia Jayjay Dear Dr. Katz This procedure was performed on Tuesday, December 17, 2024. My impressions and recommendations are as follows: Impressions : - Normal esophagus. - Non-bleeding gastric ulcer with no stigmata of bleeding. Biopsied. - Normal examined duodenum. Recommendations : - Discharge patient to home. - Resume previous diet. - Continue present medications. - Await pathology results. My findings are described in the full procedure note, which is enclosed. If I can be of further assistance, please feel free to contact me at . Sincerely, Moustapha Stanley DO 12/17/2024 8:00:23 AM This report has been signed electronically. 12/17/24799 Date Moustapha Rodriguez Signature: Date (if indicated) CC: Dr. Eboni Katz MD; Moustapha Stanley DO Date Dictated: 12/17/24710 Date Transcribed: Head Of Product: YENNY Signed [facility] MR/POSTOP.Dotty 12-17-2024 MR/POSTOP.[facility] Medical Records Department [address] [place] [address] Anesthesia Postop Eval I 12/17/24801 MR#: [id number] Acct: [id number] Name: GEORGIA RO ANN Rep #: [id number] : 1945 79 From: Obi Potts [employer] WORKER PCP: Dr. Eboni Katz MD Status:REG SDC Y Race: C Location: [place] [address] Anesthesia: Postop Eval I Current Vital Signs Temperature: 97.8 F Pulse Rate: 61 Blood Pressure: 86/64 Respiratory Rate: 18 Pulse Ox: 99 Oxygen Delivery Method: Room Air Assessment Airway patent: Yes Spontaneous unlabored respirations: Yes Mental status: Awake nausea: No Vomiting: No Anesthesia Complication: No Fluid Hydration Crystalloid volume administer (ml): 500 Total IV fluid infused: 500 Progress Note Anesthesia document: Postop Eval 1 completed: Yes 12/17/24801 Date Obi Carriero [employer] WORKER Cosigner Signature: Date CC: Signed [facility] MR/PCSNCDCK4rl 12-17-2024 MR/POSTOPAN2 [facility] Medical Records Department [address] [place] [address] Anesthesia Postop Eval II 12/17/24836 MR#: [id number] Acct: [id number] Name: GEORGIA RO Rep #: [id number] : 1945 79 From: Ger Juarez MD PCP: Dr. 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 Vomiting No 12/17/24 08:02 [employer]ITIES [employer] WORKER.ACAR Anesthesia Postop Eval I: Fluid Summary Crystalloid volume administer 500 12/17/24 08:02 UTILITIES GROUND WORKER.ACAR (ml) Colloids volume administered ( ml) Blood Product volume administered (ml) Total IV fluid infused 500 12/17/24 08:02 [employer]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 GROUND WORKER.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 Anesthesia Postop Eval I: Summary Notes Anesthesia Complication No 12/17/24 08:02 [employer]IES [employer] WORKER.ACAR Anesthesia Complication Comment: Post-operative progress note Anesthesia: Postop Eval II Evaluation Mental status: Awake Pain Level: 0 nausea: No Vomiting: No 12/17/24836 Date Ger Juarez MD Cosigner Signature: Date CC: Signed [facility] MR/PAT.ANEon 12-16-2024 MR/PAT.WIL [facility] Medical Records Department [address] [place] [address] PAT - Anesthesia 12/16/24 1638 MR#: [id number] Acct: [id number] Name: GEORGIA RO Rep #: [id number] : 1945 79 From: Bruno Myrick MD PCP: Dr. 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 Hx Hospitalization No 12/16/24 09:08 Any Problems [...] take am of surgery PONV PONV - manufacturing millwright: PONV - manufacturing millwright Female Yes 12/16/24 09:08 HX of Motion [...] 10/27/24 09:41 Respiratory Assessment Respiratory Assessment - manufacturing millwright: Respiratory Tract Infection Hx - manufacturing millwright Hx Respiratory Tract Infection No 12/16/24 09:08 STOP Sleep Apnea STOP Sleep Apnea - manufacturing millwright: STOP Sleep Apnea - manufacturing millwright Hx Hypertension Yes: on meds 12/16/24 09:08 [...] Tobacco Use History Tobacco Use History - manufacturing millwright: Tobacco Use History - manufacturing millwright Tobacco Use Smoking Status Never smoker 12/16/24 09:08 Hx Tobacco Use No 12/16/24 09:08 Years Smoking Packs Smoked per Day Smoking Cessation Date was within the last 15 years Hx Smoking Cessation Date Hx Smoking Cessation Counseling Hematologic 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 Specify any problems Hx of Preganancy in last 3 No 12/16/24 09:08 Months Nurse Filling Out Transfusion JZOLJ 12/16/24 09:08 Questions: Date: 12/16/24 12/16/24 09:08 Time: 09:10 12/16/24 09:08 Patient unable to answer at this time (ie. 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 Normal [facility] Cardiovascular stress test r eportOrdered By: Arnoldo Phelps on 11-23-2024 Study report [facility] [address] [place] [address] MR#: [id number] Acct: [id number] Name: GEORGIA RO Rep #: [id number] : 1945 79 From: Arnoldo Phelps MD Primary Care: Dr. Eboni Katz MD St at[facility]: REG CLI Referring Dr: Eboni Katz [...] stress test. Preserved ejection fraction. 11/23/241725 Date _ Arnoldo Phelps MD CC: Dr. Eboni Katz MD ~ Date Dictated: 11/23/241724 Date Transcribed: 11/23/241724 Head Of Product: CO Signed [facility] Work Phone: Stress Reporton 11-23-2024 Stress Report [facility] [address] [place] [address] MR#: [id number] Acct: [id number] Name: GEORGIA RO Rep #: [id number] : 1945 79 From: Arnoldo Phelps MD [...] MD Date Dictated: 11/23/241724 Date Transcribed: 11/23/241724 Head Of Product: CO Signed [facility] L3410.9992on 11-06-2024 [facility] Comment on above: Order Comment: 31919 4STOOL CULTURE Result Comment: TEST RESULTS LIMITS Stool Culture Salmonella/Shigella Screen Final report Result 1 No Salmonella or Shigella recovered. Campylobacter Culture Final report Result 1 No Campylobacter species isolated. E coli Shiga Toxin EIA Negative TESTING PERFORMED AT [facility]. ORIGINAL REPORT ON FILE IN LAB CONTAINS ADDITIONAL TEST SITE INFORMATION. Performed By: #### M 7400.3302, M100.7900, L100.0100, L7000.0700, L3410.9992, M100.6796, M600.5000, L7000.0750 ####[facility] [address] [place], [address] M7400.3302on 11-06-2024 M7400.3302 ___ TESTING PERFORMED AT [facility]. ORIGINAL REPORT ON FILE IN LAB CONTAINS ADDITIONAL TEST SITE INFORMATION. Giardia Lamblia EIA NEGATIVE [facility] Comment on above: Performed By: #### M 7400.3302, M100.7900, L100.0100, L7000.0700, L3410.9992, M100.6796, M600.5000, L7000.0750 ####[facility] [address] [place], [address] Ova and Parasites 8623on OP OVA AND PARASITES EX AM, ROUTINE These results were obtained using wet preparation(s) and trichrome stained smear. This test does not include testing for Crytosporidium parvum, Cyclospora, or Microsporidia. One negative specimen does not rule out the possibility of a parasitic infection. TESTING PERFORMED AT [facility]. ORIGINAL REPORT ON FILE IN LAB CONTAINS ADDITIONAL TEST SITE INFORMATION. Ova/Parasite Exam NO OVA, CYSTS, OR PARASITES FOUND. [facility] Comment on above: Performed By: #### M 7400.3302, M100.7900, L100.0100, L7000.0700, L3410.9992, M100.6796, M600.5000, L7000.0750 ####[facility] [address] [place], [place], [id number] Calprotectin, Stoolon [address] 470 ug/g Abnormal 0-120 [facility] Comment on above: Result Comment: Conc entration Interpretation Follow-Up < 5 - 50 ug/g Normal None >50 -120 ug/g Borderline Re-evaluate in 4-6 weeks >120 ug/g Abnormal Repeat as clinically indicated Performed at: [facility] [address] [id number] District Director: Hattie Hill MD, Phone: [phone] Performed By: #### M 7400.3302, M100.7900, L100.0100, L7000.0700, L3410.9992, M100.6796, M600.5000, L7000.0750 ####[facility] [address] [place], [place], [phone] L7000.0750on 11-02-2024 P ELASTASE,FECA 745 Normal >200 [facility] Comment on above: Result Comment: Resu lt Units: ug Elast./g Severe Pancreatic Insufficiency: <100 Moderate Pancreatic Insufficiency: 100 - 200 Normal: >200 Performed at: [address] [id number] District Director: Hattie Hill MD, Phone: [phone] Performed By: #### M 7400.3302, M100.7900, L100.0100, L7000.0700, L3410.9992, M100.6796, M600.5000, L7000.0750 #### [facility] [address] [place], [place], [phone] CBC W/Diff, Automatedon 07- Absolute Neut Normal 2.0-7.7 [facility] Comment on above: Result Comment: NO B LOOD WAS OBTAINED Performed By: #### M 7400.3302, M100.7900, L100.0100, L7000.0700, L3410.9992, M100.6796, M600.5000, L7000.0750 #### [facility] [address] [place], [place], [phone] HCT Normal 37-47 [facility] Comment on above: Result Comment: NO B LOOD WAS OBTAINED Performed By: #### M 7400.3302, M100.7900, L100.0100, L7000.0700, L3410.9992, M100.6796, M600.5000, L7000.0750 #### [facility] [address] [place], [address] [phone] HGB Normal 12.0-15.0 [facility] Comment on above: Result Comment: NO B LOOD WAS OBTAINED Performed By: #### M 7400.3302, M100.7900, L100.0100, L7000.0700, L3410.9992, M100.6796, M600.5000, L7000.0750 #### [facility] [address] [place], [place], [phone] MCH Normal 27.0-32.0 [facility] Comment on above: Result Comment: NO B LOOD WAS OBTAINED Performed By: #### M 7400.3302, M100.7900, L100.0100, L7000.0700, L3410.9992, M100.6796, M600.5000, L7000.0750 #### [facility] [address] [place], [place], [phone] MCHC Normal 32-36 [facility] Comment on above: Result Comment: NO B LOOD WAS OBTAINED Performed By: #### M 7400.3302, M100.7900, L100.0100, L7000.0700, L3410.9992, M100.6796, M600.5000, L7000.0750 #### [facility] [address] [place], [address] MCV Normal 81-99 [facility] Comment on above: Result Comment: NO B LOOD WAS OBTAINED Performed By: #### M 7400.3302, M100.7900, L100.0100, L7000.0700, L3410.9992, M100.6796, M600.5000, L7000.0750 #### [facility] [address] [place], [address] NEUT% Normal 47-70 [facility] Comment on above: Result Comment: NO B LOOD WAS OBTAINED Performed By: #### M 7400.3302, M100.7900, L100.0100, L7000.0700, L3410.9992, M100.6796, M600.5000, L7000.0750 #### [facility] [address] [place], [address] PLT Normal 150-450 [facility] Comment on above: Result Comment: NO B LOOD WAS OBTAINED Performed By: #### M 7400.3302, M100.7900, L100.0100, L7000.0700, L3410.9992, M100.6796, M600.5000, L7000.0750 #### [facility] [address] [place], [address] RBC Normal 4.2-5.4 [facility] Comment on above: Result Comment: NO B LOOD WAS OBTAINED Performed By: #### M 7400.3302, M100.7900, L100.0100, L7000.0700, L3410.9992, M100.6796, M600.5000, L7000.0750 #### [facility] [address] [place], [address] RDW CV Normal 11.6-14.6 [facility] Comment on above: Result Comment: NO B LOOD WAS OBTAINED Performed By: #### M 7400.3302, M100.7900, L100.0100, L7000.0700, L3410.9992, M100.6796, M600.5000, L7000.0750 #### [facility] [address] [place], [address] RDW SD Normal 35.1-43.9 [facility] Comment on above: Result Comment: NO B LOOD WAS OBTAINED Performed By: #### M 7400.3302, M100.7900, L100.0100, L7000.0700, L3410.9992, M100.6796, M600.5000, L7000.0750 #### [facility] [address] [facility] [place], [address] WBC Normal 4.4-11.0 [facility] Comment on above: Result Comment: NO B LOOD WAS OBTAINED Performed By: #### M 7400.3302, M100.7900, L100.0100, L7000.0700, L3410.9992, M100.6796, M600.5000, L7000.0750 #### [facility] [address] [facility] [place], [address] CDIFF (PCR)on 11-01-2024 CDIFF Pending [phone] NAP1-B1 Presumptive Negative *for epidemiolologic???use C. Diff PCR Negative- No toxigenic C. Diff Detected Normal [facility] Comment on above: Performed By: #### M 7400.3302, M100.7900, L100.0100, L7000.0700, L3410.9992, M100.6796, M600.5000, L7000.0750 #### [facility] [address] [place], [address] Calprotectin stoolOrdered By : Ruby Parekh on 11-01-2024 Calprotectin stool 470 ug/g High 0-120 [facility] Comment on above: Concentration Interp retation Follow-Up< 5 - 50 ug/g Normal None>50 -120 ug/g Borderline Re-evaluate in 4-6 weeks >120 ug/g Abnormal Repeat as clinically indicatedPerformed at: - [facility] [address] [id number] Director: Hattie Hill MD, Phone: [phone] Clostridium difficile detect ion by polymerase chain reactionOrdered By: Ruby Parekh on 11-01-2024 C. difficile DNA ELIZABETH+probe Ql (Unsp spec) [facility] Stool Occult Blood iFOBon STOB Positive Normal [facility] Comment on above: Performed By: #### M 7400.3302, M100.7900, L100.0100, L7000.0700, L3410.9992, M100.6796, M600.5000, L7000.0750 #### [facility] [address] [place], [place], [address] Stool gastrointestinal hemog lobin detection by immunologic methodOrdered By: Ruby Parekh on 11-01-2024 Lower GI hemoglobin IA Ql (Stl) Positive Abnormal [facility] Stool pancreatic elastase me asurement (mass/mass)Ordered By: Ruby Parekh on 11-01-2024 Elastase.pancreatic (Stl) [Mass/Mass] 745 >200 [facility] Comment on above: Result Units: ug Miranda st./g Severe Pancreatic Insufficiency: <100 Moderate Pancreatic Insufficiency: 100 - 200 Normal: >200Performed at: - [facility] [address] [id number] Director: Hattie Hill MD, Phone: [phone] Gastroenterology Visit Repor ton 10-28-2024 Gastroenterology Visit Report [facility] [address] [place] [address] OFFICE VISIT Date of Service: 10/28/24 MR#: [id number] Acct: [id number] Name: GEORGIA RO Rep #: [id number] : 1945 Provider: BHANU Muñoz Age/Sex: 79/F Location: [facility] Status: Signed Intake Vital Signs 10/27/24 [...] every other day. Continue pantoprazole and carafate. [facility] Medical History (Updated 10/27/24 @ 12:[address] Eobni Katz MD) Dyspnea on exertion Osteopenia PONV [...] the first portion of the duodenum. Biopsied. *2.12.25 office contacted due to black stools and [...] being par (more content not included)... Normal [facility] Absolute lymphocyte countOrd ered By: Eboni Katz on 10-27-2024 Lymphocytes Auto (Unsp spec) [#/Vol] 2.39 10*3/uL 0.83-4.51 [facility] Absolute neutrophil countOrd ered By: Eboni Katz on 10-27-2024 Neutrophils (Bld) [#/Vol] 3.9 10*3/uL 2.0-7.7 [facility] Anion gap in Serum or Plasma Ordered By: Phillipsumankariaretha Allenzacherycarola on 10-27-2024 Anion gap [Moles/Vol] 13 mmol/L 5-15 [facility] Automated lymphocyte count a s percentage of total leukocytesOrdered By: Lázaroaretha Allenzacherycarola on 10-27-2024 Lymphocytes/100 WBC Auto (Unsp spec) 33.1 % 19- [facility] BUN/creatinine ratioOrdered By: sumanwhitinsvillearetha Alejandrozacherycarola on 10-27-2024 Urea nitrogen/Creatinine [Mass ratio] 17.3 mg/mg 10- [facility] Basophil percentageOrdered B y: Eboni Katz on 10-27-2024 Basophils/100 WBC (Bld) 0.8 % 0-1 [facility] Bilirubin, totalOrdered By: Eboni Katz on 10-27-2024 Bilirubin [Mass/Vol] 0.65 mg/dL 0.00-1.30 [facility] CBC W/Diff, Automatedon Absolute Lymph 2.39 X10 3/uL Normal 0.83-4.51 [facility] Comment on above: Performed By: #### L 500.4050, L506.1001, L100.0100, L506.0400, L501.9520 ####[facility] [address] [place], [place], [id number] Absolute Neut 3.9 X10 3/uL Normal 2.0-7.7 [facility] Comment on above: Performed By: #### L 500.4050, L506.1001, L100.0100, L506.0400, L501.9520 ####[facility] [address] [place], [address] Basophils/100 WBC (Bld) 0.8 % Normal 0-1 [facility] Comment on above: Performed By: #### L 500.4050, L506.1001, L100.0100, L506.0400, L501.9520 ####[facility] [address] [place], [address] Eosinophils/100 WBC (Bld) 1.9 % Normal 0-5 [facility] Comment on above: Performed By: #### L 500.4050, L506.1001, L100.0100, L506.0400, L501.9520 ####[facility] [address] [place], [address] Erythrocyte distribution width (RBC) [Ratio] 13.6 % Normal 11.6-14.6 [facility] Comment on above: Performed By: #### L 500.4050, L506.1001, L100.0100, L506.0400, L501.9520 ####[facility] [address] [place], [address] Hematocrit (Bld) [Volume fraction] 41.9 % Normal 37-47 [facility] Comment on above: Performed By: #### L 500.4050, L506.1001, L100.0100, L506.0400, L501.9520 ####[facility] [address] [place], [address] Hemoglobin (Bld) [Mass/Vol] 13.7 g/dL Normal 12.0-15.0 [facility] Comment on above: Performed By: #### L 500.4050, L506.1001, L100.0100, L506.0400, L501.9520 ####[facility] [address] [place], [address] IG% 0.300 Normal 0.0-0.9 [facility] Comment on above: Result Comment: IG% - Immature Granulocytes (promyelocytes, myelocytes and metamyelocytes) > 1% indicates that a LEFT SHIFT is Present. Performed By: #### L 500.4050, L506.1001, L100.0100, L506.0400, L501.9520 ####[facility] [address] [place], [address] Lymphocytes/100 WBC (Bld) 33.1 % Normal 19-41 [facility] Comment on above: Performed By: #### L 500.4050, L506.1001, L100.0100, L506.0400, L501.9520 ####[facility] [address] [place], [address] MCH (RBC) [Entitic mass] 29.7 pg Normal 27.0-32.0 [facility] Comment on above: Performed By: #### L 500.4050, L506.1001, L100.0100, L506.0400, L501.9520 ####[facility] [address] [place], [address] MCHC (RBC) [Mass/Vol] 32.7 g/dL Normal 32-36 [facility] Comment on above: Performed By: #### L 500.4050, L506.1001, L100.0100, L506.0400, L501.9520 ####[facility] [address] [place], [address] MCV (RBC) [Entitic vol] 90.9 fL Normal 81-99 [facility] Comment on above: Performed By: #### L 500.4050, L506.1001, L100.0100, L506.0400, L501.9520 ####[facility] [address] [place], [address] Monocytes/100 WBC (Bld) 10.0 % Normal 0-10 [facility] Comment on above: Performed By: #### L 500.4050, L506.1001, L100.0100, L506.0400, L501.9520 ####[facility] [address] [place], [address] Neutrophils/100 WBC (Bld) 53.9 % Normal 47-70 [facility] Comment on above: Performed By: #### L 500.4050, L506.1001, L100.0100, L506.0400, L501.9520 ####[facility] [address] [place], [address] Nucleated RBC (Bld) [#/Vol] 0 10*3/uL Normal 0-5 [facility] Comment on above: Performed By: #### L 500.4050, L506.1001, L100.0100, L506.0400, L501.9520 ####[facility] [address] [place], [address] Platelet mean volume (Bld) [Entitic vol] 11.2 fL Normal 6.2-12.0 [facility] Comment on above: Performed By: #### L 500.4050, L506.1001, L100.0100, L506.0400, L501.9520 ####[facility] [address] [place], [address] Platelets (Bld) [#/Vol] 233 10*3/uL Normal 150-450 [facility] Comment on above: Performed By: #### L 500.4050, L506.1001, L100.0100, L506.0400, L501.9520 ####[facility] [address] [place], [address] RBC (Bld) [#/Vol] 4.61 10*6/uL Normal 4.2-5.4 [facility] Comment on above: Performed By: #### L 500.4050, L506.1001, L100.0100, L506.0400, L501.9520 ####[facility] [address] [place], [address] RDW SD 45.1 fl High 35.1-43.9 [facility] Comment on above: Performed By: #### L 500.4050, L506.1001, L100.0100, L506.0400, L501.9520 ####[facility] [address] [place], [address] WBC (Bld) [#/Vol] 7.2 10*3/uL Normal 4.4-11.0 [facility] Comment on above: Performed By: #### L 500.4050, L506.1001, L100.0100, L506.0400, L501.9520 ####[facility] [address] [place], [address] Carbon dioxide, total [Moles /volume] in Central venous bloodOrdered By: Eboni Katz on 10-27-2024 CO2 [Moles/Vol] 25.6 mmol/L 21.0-32.0 [facility] Chloride assayOrdered By: Phillip Katz on 10-27-2024 Chloride [Moles/Vol] 101 mmol/L 98-108 [facility] Comprehensive Metabolic Prof ilon 10-27-2024 Albumin [Mass/Vol] 4.3 g/dL Normal 3.4-4.8 [facility] Comment on above: Performed By: #### L 500.4050, L506.1001, L100.0100, L506.0400, L501.9520 ####[facility] [address] [place], [address] Albumin/Globulin [Mass ratio] 1.5 {ratio} Normal 0.9-2.4 [facility] Comment on above: Performed By: #### L 500.4050, L506.1001, L100.0100, L506.0400, L501.9520 ####[facility] [address] [place], [address] ALK PHOS 88 U/L Normal 35-104 [facility] Comment on above: Performed By: #### L 500.4050, L506.1001, L100.0100, L506.0400, L501.9520 ####[facility] [address] [place], [address] ALT [Catalytic activity/Vol] 19 U/L Normal <=34 [facility] Comment on above: Performed By: #### L 500.4050, L506.1001, L100.0100, L506.0400, L501.9520 ####[facility] [address] [place], [address] AST [Catalytic activity/Vol] 25 U/L Normal <=31 [facility] Comment on above: Performed By: #### L 500.4050, L506.1001, L100.0100, L506.0400, L501.9520 ####[facility] [address] [place], [address] Bilirubin [Mass/Vol] 0.65 mg/dL Normal 0.00-1.30 [facility] Comment on above: Performed By: #### L 500.4050, L506.1001, L100.0100, L506.0400, L501.9520 ####[facility] [address] [place], [address] BUN/CRE 17.3 RATIO Normal 10-20 [facility] Comment on above: Performed By: #### L 500.4050, L506.1001, L100.0100, L506.0400, L501.9520 ####[facility] [address] [place], [address] Calcium [Mass/Vol] 10.1 mg/dL Normal 7.6-11.0 [facility] Comment on above: Performed By: #### L 500.4050, L506.1001, L100.0100, L506.0400, L501.9520 ####[facility] [address] [place], [address] Chloride [Moles/Vol] 101 mmol/L Normal 98-108 [facility] Comment on above: Performed By: #### L 500.4050, L506.1001, L100.0100, L506.0400, L501.9520 ####[facility] [address] [place], [address] CO2 [Moles/Vol] 25.6 mmol/L Normal 21.0-32.0 [facility] Comment on above: Performed By: #### L 500.4050, L506.1001, L100.0100, L506.0400, L501.9520 ####[facility] [address] [place], [address] Creatinine [Mass/Vol] 1.13 mg/dL Normal 0.70-1.20 [facility] Comment on above: Performed By: #### L 500.4050, L506.1001, L100.0100, L506.0400, L501.9520 ####[facility] [address] [place], [address] GAP 13 Normal 5-15 [facility] Comment on above: Performed By: #### L 500.4050, L506.1001, L100.0100, L506.0400, L501.9520 ####[facility] [address] [place], [address] GFR/1.73 sq M.predicted among non-blacks MDRD (S/P/Bld) [Vol rate/Area] 50 mL/min/{1.73_m2} Low >60 [facility] Comment on above: Result Comment: mL/m in/1.73m2 CKD-EPI Creatinine Equation (2020) Performed By: #### L 500.4050, L506.1001, L100.0100, L506.0400, L501.9520 ####[facility] [address] [place], [address] Globulin (S) [Mass/Vol] 2.9 g/dL Normal 2.2-4.2 [facility] Comment on above: Performed By: #### L 500.4050, L506.1001, L100.0100, L506.0400, L501.9520 ####[facility] [address] [place], [address] Glucose [Mass/Vol] 103 mg/dL High 70-99 [facility] Comment on above: Performed By: #### L 500.4050, L506.1001, L100.0100, L506.0400, L501.9520 ####[facility] [address] [place], [address] Potassium [Moles/Vol] 4.8 mmol/L Normal 3.3-5.1 [facility] Comment on above: Performed By: #### L 500.4050, L506.1001, L100.0100, L506.0400, L501.9520 ####[facility] [address] [place], [address] Sodium [Moles/Vol] 140 mmol/L Normal 133-145 [facility] Comment on above: Performed By: #### L 500.4050, L506.1001, L100.0100, L506.0400, L501.9520 ####[facility] [address] [place], [address] T PROT 7.2 g/dL Normal 5.9-8.4 [facility] Comment on above: Performed By: #### L 500.4050, L506.1001, L100.0100, L506.0400, L501.9520 ####[facility] [address] [place], [address] Urea nitrogen [Mass/Vol] 20 mg/dL High 4-19 [facility] Comment on above: Performed By: #### L 500.4050, L506.1001, L100.0100, L506.0400, L501.9520 ####[facility] [address] [place], [address] Eosinophil percentageOrdered By: Eboni Katz on 10-27-2024 Eosinophils/100 WBC (Bld) 1.9 % 0-5 [facility] Erythrocyte distribution wid th ratioOrdered By: Eboni Katz on 10-27-2024 Erythrocyte distribution width (RBC) [Ratio] 13.6 % 11.6-14.6 [facility] Erythrocyte distribution wid th standard deviationOrdered By: Eboni Katz on 10-27-2024 Erythrocyte distribution width (RBC) [Ratio] 45.1 fl High 35.1-43.9 [facility] Glomerular filtration rate ( GFR) estimation/1.73 sq m using serum, plasma, or whole bOrdered By: Eboni Katz on 10-27-2024 GFR/1.73 sq M.predicted among non-blacks MDRD (S/P/Bld) [Vol rate/Area] 50 mL/min/{1.73_m2} Low >60 [facility] Comment on above: mL/min/1.73m2 CKD-EP I Creatinine Equation (2020) Hematocrit Auto (Bld) [Volum e fraction]Ordered By: Eboni Katz on 10-27-2024 Hematocrit (Bld) [Volume fraction] 41.9 % 37-47 [facility] Hemoglobin measurementOrdere d By: Eboni Katz on 10-27-2024 Hemoglobin (Bld) [Mass/Vol] 13.7 g/dL 12.0-15.0 [facility] Immature granulocytes/100 WB C Auto (Bld)Ordered By: Eboni Katz on 10-27-2024 Immature granulocytes/100 WBC (Bld) 0.300 % 0.0-0.9 [facility] Comment on above: IG% - Immature Granu locytes (promyelocytes, myelocytes and metamyelocytes) > 1% indicates that a LEFT SHIFT is Present. Internal Medicine Office Vis iton 10-27-2024 Internal Medicine Office Visit [facility] [address] [place] [address] [place] [address] OFFICE VISIT Date of Service: 10/27/24 MR#: [id number] Acct: [id number] Name: GEORGIA RO Rep #: [id number] : 1945 Provider: Dr. Eboni garcia MD Age/Sex: 79/F Location[facility] Status: Signed Intake Vital Signs 07/26/24 09:08 [...] m fu Chief Complaint: 3 M FU Rn On Site Required: No Is patient in pain?: No [...] ago. Pt denies chest pain just sob. [facility] Medical History (Updated 10/27/24 @ 12:22 [...] alcohol intake: (more content not included)... Normal [facility] Laboratory - Chemistry and C hemistry - challengeOrdered By: Eboni Katz on 10-27-2024 AST [Catalytic activity/Vol] 25 U/L <32 [facility] Laboratory - Hematology and Cell countsOrdered By: Eboni Katz on 10-27-2024 HbA1c (Bld) [Mass fraction] 6.0 % 4.2-6.3 [facility] MCV (mean corpuscular volume ) determinationOrdered By: Eboni Katz on 10-27-2024 MCV (RBC) [Entitic vol] 90.9 fL 81-99 [facility] Mean corpuscular hemoglobin (MCH) determinationOrdered By: Eboni Katz on 10-27-2024 MCH (RBC) [Entitic mass] 29.7 pg 27.0-32.0 [facility] Mean corpuscular hemoglobin concentration (MCHC) determinationOrdered By: Eboni Katz on 10-27-2024 MCHC (RBC) [Mass/Vol] 32.7 g/dL 32-36 [facility] Mean platelet volume determi nationOrdered By: Eboni Katz on 10-27-2024 Platelet mean volume (Bld) [Entitic vol] 11.2 fL 6.2-12.0 [facility] Monocyte percentageOrdered B y: Eboni Katz on 10-27-2024 Monocytes/100 WBC (Bld) 10.0 % 0-10 [facility] Neutrophil percentageOrdered By: Eboni Katz on 10-27-2024 Neutrophils/100 WBC (Bld) 53.9 % 47-70 [facility] Nucleated red blood cell per centageOrdered By: Eboni Katz on 10-27-2024 Nucleated RBC/100 WBC (Bld) [Ratio] 0 % 0-5 [facility] Platelet countOrdered By: Phillip Katz on 10-27-2024 Platelets (Bld) [#/Vol] 233 10*3/uL 150-450 [facility] Potassium measurement (mass/ volume)Ordered By: Eboni Katz on 10-27-2024 Potassium (Unsp spec) [Mass/Vol] 4.8 mmol/L 3.3-5.1 [facility] RBC Auto (Bld) [#/Vol]Ordere d By: Eboni Katz on 10-27-2024 RBC (Bld) [#/Vol] 4.61 10*6/uL 4.2-5.4 [facility] Serum creatinine measurement (mass/volume)Ordered By: Eboni Katz on 10-27-2024 Creatinine [Mass/Vol] 1.13 mg/dL 0.70-1.20 [facility] Serum globulin measurementOr dered By: Eboni Katz on 10-27-2024 Globulin (S) [Mass/Vol] 2.9 g/dL 2.2-4.2 [facility] Serum glucose measurement (m ass/volume)Ordered By: Eboni Katz on 10-27-2024 Glucose [Mass/Vol] 103 mg/dL High 70-99 [facility] Serum or plasma alanine rocha otransferase (ALT) measurementOrdered By: Eboni Katz on 10-27-2024 ALT [Catalytic activity/Vol] 19 U/L <35 [facility] Serum or plasma albumin jose l urement (mass/volume)Ordered By: Eboni Katz on 10-27-2024 Albumin [Mass/Vol] 4.3 g/dL 3.4-4.8 [facility] Serum or plasma albumin/glob ulin mass ratioOrdered By: Eboni Katz on 10-27-2024 Albumin/Globulin [Mass ratio] 1.5 {ratio} 0.9-2.4 [facility] Serum or plasma alkaline kamaljit sphatase measurementOrdered By: Eboni Katz on 10-27-2024 ALP [Catalytic activity/Vol] 88 U/L 35-104 [facility] Serum or plasma calcium jose l urement (mass/volume)Ordered By: Eboni Katz on 10-27-2024 Calcium [Mass/Vol] 10.1 mg/dL 7.6-11.0 [facility] Serum or plasma urea nitroge n measurement (mass/volume)Ordered By: Eboni Katz on 10-27-2024 Urea nitrogen [Mass/Vol] 20 mg/dL High 4-19 [facility] Sodium levelOrdered By: Don Katz on 10-27-2024 Sodium [Moles/Vol] 140 mmol/L 133-145 [facility] T4 Free Directon 10-27-2024 T4 FREE DIRECT 1.30 ng/dL Normal 0.76-1.46 [facility] Comment on above: Performed By: #### L 500.4050, L506.1001, L100.0100, L506.0400, L501.9520 ####[facility] [address] [place], [address] T4 freeOrdered By: Eboni Katz on 10-27-2024 Free T4 [Mass/Vol] 1.30 ng/dL 0.76-1.46 [facility] TSH DL <= 0.005 mIU/L QnOrde red By: Eboni Katz on 10-27-2024 TSH Qn 3.280 uIU/mL 0.300-4.200 [facility] Thyroid Stim Hormone (TSH)on 10-27-2024 TSH 3.280 uIU/mL Normal 0.300-4.200 [facility] Comment on above: Performed By: #### L 500.4050, L506.1001, L100.0100, L506.0400, L501.9520 ####[facility] [address] [place], [place], [address] Total proteinOrdered By: Kentrell bobaretha Katz on 10-27-2024 Protein [Mass/Vol] 7.2 g/dL 5.9-8.4 [facility] Vitamin D,25 Hydroxyon 10-27 Vitamin D 25-OH 53.2 ng/mL Normal 30-100 [facility] Comment on above: Result Comment: Miryam min D Status Deficiency: <20 ng/mL (50nmol/L) Insufficiency: 20-30 ng/mL (50-75 nmol/L) Sufficiency: 30-100 ng/mL (75-250 nmol/L) Toxicity: >100 ng/mL (>250 nmol/L) Performed By: #### L 500.4050, L506.1001, L100.0100, L506.0400, L501.9520 ####[facility] [address] [place], [place], [address] White blood cell (WBC) count Ordered By: Eboni Katz on 10-27-2024 WBC (Bld) [#/Vol] 7.2 10*3/uL 4.4-11.0 [facility] Internal Medicine Office Vis iton 07-26-2024 Internal Medicine Office Visit [facility] [address] [place] [address] [address] [place] [address] OFFICE VISIT Date of Service: 07/26/24 MR#: [id number] Acct: [id number] Name: GEORGIA RO Rep #: [id number] : 1945 Provider: Dr. Eboni garcia MD Age/Sex: 78/F Location: [facility] Status: Signed Intake Vital Signs 04/19/24 10:28 [...] pt states she is out of metformin [facility] Medical History PONV (postoperative nausea and [...] but contin (more content not included)... Normal [facility] Laboratory - Hematology and Cell countsOrdered By: Eboni Katz on 07-26-2024 HbA1c (Bld) [Mass fraction] 6.2 % 4.2-6.3 [facility] CBC W/Diff, Automatedon Absolute Lymph 2.22 X10 3/uL Normal 0.83-4.51 [facility] Comment on above: Performed By: #### L 504.2610, L100.0100, L500.4050 ####[facility] [address] [place], [address] Absolute Neut 4.3 X10 3/uL Normal 2.0-7.7 [facility] Comment on above: Performed By: #### L 504.2610, L100.0100, L500.4050 ####[facility] [address] [place], [address] Basophils/100 WBC (Bld) 1.1 % High 0-1 [facility] Comment on above: Performed By: #### L 504.2610, L100.0100, L500.4050 ####[facility] [address] [place], [address] Eosinophils/100 WBC (Bld) 2.3 % Normal 0-5 [facility] Comment on above: Performed By: #### L 504.2610, L100.0100, L500.4050 ####[facility] [address] [place], [address] Erythrocyte distribution width (RBC) [Ratio] 12.8 % Normal 11.6-14.6 [facility] Comment on above: Performed By: #### L 504.2610, L100.0100, L500.4050 ####[facility] [address] [place], [address] Hematocrit (Bld) [Volume fraction] 39.5 % Normal 37-47 [facility] Comment on above: Performed By: #### L 504.2610, L100.0100, L500.4050 ####[facility] [address] [place], [address] Hemoglobin (Bld) [Mass/Vol] 13.1 g/dL Normal 12.0-15.0 [facility] Comment on above: Performed By: #### L 504.2610, L100.0100, L500.4050 ####[facility] [address] [place], [address] IG% 0.700 Normal 0.0-0.9 [facility] Comment on above: Result Comment: IG% - Immature Granulocytes (promyelocytes, myelocytes and metamyelocytes) > 1% indicates that a LEFT SHIFT is Present. Performed By: #### L 504.2610, L100.0100, L500.4050 ####[facility] [address] [place], [address] Lymphocytes/100 WBC (Bld) 29.5 % Normal 19-41 [facility] Comment on above: Performed By: #### L 504.2610, L100.0100, L500.4050 ####[facility] [address] [place], [address] MCH (RBC) [Entitic mass] 29.7 pg Normal 27.0-32.0 [facility] Comment on above: Performed By: #### L 504.2610, L100.0100, L500.4050 ####[facility] [address] [place], [address] MCHC (RBC) [Mass/Vol] 33.2 g/dL Normal 32-36 [facility] Comment on above: Performed By: #### L 504.2610, L100.0100, L500.4050 ####[facility] [address] [place], [address] MCV (RBC) [Entitic vol] 89.6 fL Normal 81-99 [facility] Comment on above: Performed By: #### L 504.2610, L100.0100, L500.4050 ####[facility] [address] [place], [address] Monocytes/100 WBC (Bld) 9.0 % Normal 0-10 [facility] Comment on above: Performed By: #### L 504.2610, L100.0100, L500.4050 ####[facility] [address] [place], [address] Neutrophils/100 WBC (Bld) 57.4 % Normal 47-70 [facility] Comment on above: Performed By: #### L 504.2610, L100.0100, L500.4050 ####[facility] [address] [place], [address] Nucleated RBC (Bld) [#/Vol] 0 10*3/uL Normal 0-5 [facility] Comment on above: Performed By: #### L 504.2610, L100.0100, L500.4050 ####[facility] [address] [place], [address] Platelet mean volume (Bld) [Entitic vol] 10.5 fL Normal 6.2-12.0 [facility] Comment on above: Performed By: #### L 504.2610, L100.0100, L500.4050 ####[facility] [address] [place], [address] Platelets (Bld) [#/Vol] 229 10*3/uL Normal 150-450 [facility] Comment on above: Performed By: #### L 504.2610, L100.0100, L500.4050 ####[facility] [address] [place], [address] RBC (Bld) [#/Vol] 4.41 10*6/uL Normal 4.2-5.4 [facility] Comment on above: Performed By: #### L 504.2610, L100.0100, L500.4050 ####[facility] [address] [place], [address] RDW SD 42.1 fl Normal 35.1-43.9 [facility] Comment on above: Performed By: #### L 504.2610, L100.0100, L500.4050 ####[facility] [address] [place], [address] WBC (Bld) [#/Vol] 7.5 10*3/uL Normal 4.4-11.0 [facility] Comment on above: Performed By: #### L 504.2610, L100.0100, L500.4050 ####[facility] [address] [place], [address] Comprehensive Metabolic Prof neon 06-24-2024 Albumin [Mass/Vol] 4.2 g/dL Normal 3.4-4.8 [facility] Comment on above: Performed By: #### L 504.2610, L100.0100, L500.4050 ####[facility] [address] [place], [address] Albumin/Globulin [Mass ratio] 1.5 {ratio} Normal 0.9-2.4 [facility] Comment on above: Performed By: #### L 504.2610, L100.0100, L500.4050 ####[facility] [address] [place], [address] ALK PHOS 98 U/L Normal 35-104 [facility] Comment on above: Performed By: #### L 504.2610, L100.0100, L500.4050 ####[facility] [address] [place], [address] ALT [Catalytic activity/Vol] 13 U/L Normal <=34 [facility] Comment on above: Performed By: #### L 504.2610, L100.0100, L500.4050 ####[facility] [address] [place], [address] AST [Catalytic activity/Vol] 19 U/L Normal <=31 [facility] Comment on above: Performed By: #### L 504.2610, L100.0100, L500.4050 ####[facility] [address] [place], [address] Bilirubin [Mass/Vol] 0.47 mg/dL Normal 0.00-1.30 [facility] Comment on above: Performed By: #### L 504.2610, L100.0100, L500.4050 ####[facility] [address] [place], [address] BUN/CRE 19.7 RATIO Normal 10-20 [facility] Comment on above: Performed By: #### L 504.2610, L100.0100, L500.4050 ####[facility] [address] [place], [address] Calcium [Mass/Vol] 9.7 mg/dL Normal 7.6-11.0 [facility] Comment on above: Performed By: #### L 504.2610, L100.0100, L500.4050 ####[facility] [address] [place], [address] Chloride [Moles/Vol] 100 mmol/L Normal 98-108 [facility] Comment on above: Performed By: #### L 504.2610, L100.0100, L500.4050 ####[facility] [address] [place], [address] CO2 [Moles/Vol] 25.9 mmol/L Normal 21.0-32.0 [facility] Comment on above: Performed By: #### L 504.2610, L100.0100, L500.4050 ####[facility] [address] [place], [address] Creatinine [Mass/Vol] 1.09 mg/dL Normal 0.70-1.20 [facility] Comment on above: Performed By: #### L 504.2610, L100.0100, L500.4050 ####[facility] [address] [place], [address] ECRCL 49.32 ml/min Low 50-250 [facility] Comment on above: Performed By: #### L 504.2610, L100.0100, L500.4050 ####[facility] [address] [place], [address] GAP 11 Normal 5-15 [facility] Comment on above: Performed By: #### L 504.2610, L100.0100, L500.4050 ####[facility] [address] [place], [address] GFR/1.73 sq M.predicted among non-blacks MDRD (S/P/Bld) [Vol rate/Area] 52 mL/min/{1.73_m2} Low >60 [facility] Comment on above: Result Comment: mL/m in/1.73m2 CKD-EPI Creatinine Equation (2020) Performed By: #### L 504.2610, L100.0100, L500.4050 ####[facility] [address] [place], [address] Globulin (S) [Mass/Vol] 2.8 g/dL Normal 2.2-4.2 [facility] Comment on above: Performed By: #### L 504.2610, L100.0100, L500.4050 ####[facility] [address] [place], [address] Glucose [Mass/Vol] 106 mg/dL High 70-99 [facility] Comment on above: Performed By: #### L 504.2610, L100.0100, L500.4050 ####[facility] [address] [place], [address] Potassium [Moles/Vol] 4.2 mmol/L Normal 3.3-5.1 [facility] Comment on above: Performed By: #### L 504.2610, L100.0100, L500.4050 ####[facility] [address] [place], [address] Sodium [Moles/Vol] 138 mmol/L Normal 133-145 [facility] Comment on above: Performed By: #### L 504.2610, L100.0100, L500.4050 ####[facility] [address] [place], [address] T PROT 7.0 g/dL Normal 5.9-8.4 [facility] Comment on above: Performed By: #### L 504.2610, L100.0100, L500.4050 ####[facility] [address] [place], [address] Urea nitrogen [Mass/Vol] 22 mg/dL High 4-19 [facility] Comment on above: Performed By: #### L 504.2610, L100.0100, L500.4050 ####[facility] [address] [place], [address] LDHon 06-24-2024 LDH 170 U/L Normal 84-246 [facility] Comment on above: Order Comment: 1 Performed By: #### L 504.2610, L100.0100, L500.4050 ####[facility] [address] [place], [address] Lactate dehydrogenase (LDH) measurementOrdered By: Konstantin Saha on 06-24-2024 LDH [Catalytic activity/Vol] 170 U/L 84-246 [facility] Oncology Visit Reporton Oncology Visit Report [facility] [facility] [address] [place] [place] [address] OFFICE VISIT Date of Service: 06/24/24 1119 MR#: [id number] Acct: [id number] Name: GEORGIA RO ANN Rep #: [id number] : 1945 From: Konstantin Saha MD Age/Sex: 78/F Location[facility] Status: Signed HPI Subjective Date [...] other quantitatively significant hypermetabolic abnormalities are encountered. [facility] Medical History PONV (postoperative nausea and [...] Endocrine Endocrino (more content not included)... Normal [facility] Abdomen Limitedon 06-17-2024 Abdomen Limited [facility] Imaging Services [address] [place], [place] [address] Abdomen Limited MR#: [id number] Acct: [id number] Name: GEORGIA RO Rep #: [id number] : 1945 F 78 From: Andre sagastume MD PCP: Dr. Eboni Katz MD Status: REG CLI Study: Abdomen Limited Date of Exam: 06/17/24 Exam# [id number] Ordering Dr: Ruby Parekh PROCEDURE: ABDOMEN LIMITED [...] fatty infiltration of the liver. Reading Location: [id number] CC: Dr. Eboni Katz MD; BHANU Muñoz Head Of Product: Signed Normal [facility] Gastroenterology Visit Repor ton 06-11-2024 Gastroenterology Visit Report [facility] [address] [place] [address] OFFICE VISIT Date of Service: 06/11/24 MR#: [id number] Acct: [id number] Name: GEORGIA RO Rep #: [id number] : 1945 Provider: BHANU Muñoz Age/Sex: 78/F Location[place] [facility] Status: Signed Intake Vital Signs 04/19/24 10:28 Height 5 ft 6 in Weight: 211 lb BMI 34.0 BP 122/80 H Blood Pressure Location Lt brachial Position Sitting Respiration 16 Pulse 73 Pulse Source Monitor Temp 97.5 F L Temp Source Temporal Pulse Oximetry (%) 99 Oxygen Delivery Method room air Intake Visit Reasons: follow up Chief Complaint: heartburn Rn On Site Required: No Is patient in pain?: Yes [...] pass out. Continues pantoprazole and benefiber daily. [facility] Medical History PONV (postoperative nausea and [...] difficulty swallowing (more content not included)... Normal [facility] Stool Occult Blood iFOBon STOB Negative Normal [facility] Comment on above: Performed By: #### L 504.2610, L500.4050, L100.0100 #### [facility] [address] [facility] [place], [place], [address] Abdomen Single Viewon 2024 Abdomen Single View [facility] Imaging Services [address] [place], [place] [address] Abdomen Single View MR#: [id number] Acct: [id number] Name: GEORGIA RO Rep #: [id number] : 1945 F 78 From: Wilbert Lane MD PCP: Dr. Eboni Katz MD Status: REG CLI Study: Abdomen Single View Date of Exam: 06/02/24 Exam# [id number] Ordering Dr: Ruby Parekh EXAM: XR Abdomen, 1 View CLINICAL INDICATION: TECHNIQUE: Frontal supine view of the abdomen/pelvis. COMPARISON: No relevant prior studies available. FINDINGS: GASTROINTESTINAL TRACT: Fecal retention in the colon consistent with constipation. No dilation. BONES/JOINTS: Unremarkable. No acute fracture. RAD/Abdomen Single View IMPRESSION: Fecal retention in the colon consistent with constipation. Reading [facility] CC: Dr. Eboni Katz MD; BHANU Muñoz Head Of Product: Signed Normal [facility] CBC W/Diff, Automatedon 05-22 Absolute Lymph 2.37 X10 3/uL Normal 0.83-4.51 [facility] Comment on above: Performed By: #### L 500.4050, L101.9900, L100.0100, L501.6710 ####[facility] [address] [place], [address] Absolute Neut 3.4 X10 3/uL Normal 2.0-7.7 [facility] Comment on above: Performed By: #### L 500.4050, L101.9900, L100.0100, L501.6710 ####[facility] [address] [place], [address] Basophils/100 WBC (Bld) 0.9 % Normal 0-1 [facility] Comment on above: Performed By: #### L 500.4050, L101.9900, L100.0100, L501.6710 ####[facility] [address] [place], [address] Eosinophils/100 WBC (Bld) 2.0 % Normal 0-5 [facility] Comment on above: Performed By: #### L 500.4050, L101.9900, L100.0100, L501.6710 ####[facility] [address] [place], [address] Erythrocyte distribution width (RBC) [Ratio] 12.9 % Normal 11.6-14.6 [facility] Comment on above: Performed By: #### L 500.4050, L101.9900, L100.0100, L501.6710 ####[facility] [address] [place], [address] Hematocrit (Bld) [Volume fraction] 40.4 % Normal 37-47 [facility] Comment on above: Performed By: #### L 500.4050, L101.9900, L100.0100, L501.6710 ####[facility] [address] [place], [address] Hemoglobin (Bld) [Mass/Vol] 13.1 g/dL Normal 12.0-15.0 [facility] Comment on above: Performed By: #### L 500.4050, L101.9900, L100.0100, L501.6710 ####[facility] [address] [place], [address] IG% 0.800 Normal 0.0-0.9 [facility] Comment on above: Result Comment: IG% - Immature Granulocytes (promyelocytes, myelocytes and metamyelocytes) > 1% indicates that a LEFT SHIFT is Present. Performed By: #### L 500.4050, L101.9900, L100.0100, L501.6710 ####[facility] [address] [place], [address] Lymphocytes/100 WBC (Bld) 36.1 % Normal 19-41 [facility] Comment on above: Performed By: #### L 500.4050, L101.9900, L100.0100, L501.6710 ####[facility] [address] [place], [address] MCH (RBC) [Entitic mass] 29.2 pg Normal 27.0-32.0 [facility] Comment on above: Performed By: #### L 500.4050, L101.9900, L100.0100, L501.6710 ####[facility] [address] [place], [address] MCHC (RBC) [Mass/Vol] 32.4 g/dL Normal 32-36 [facility] Comment on above: Performed By: #### L 500.4050, L101.9900, L100.0100, L501.6710 ####[facility] [address] [place], [address] MCV (RBC) [Entitic vol] 90.2 fL Normal 81-99 [facility] Comment on above: Performed By: #### L 500.4050, L101.9900, L100.0100, L501.6710 ####[facility] [address] [place], [address] Monocytes/100 WBC (Bld) 8.2 % Normal 0-10 [facility] Comment on above: Performed By: #### L 500.4050, L101.9900, L100.0100, L501.6710 ####[facility] [address] [place], [address] Neutrophils/100 WBC (Bld) 52.0 % Normal 47-70 [facility] Comment on above: Performed By: #### L 500.4050, L101.9900, L100.0100, L501.6710 ####[facility] [address] [place], [address] Nucleated RBC (Bld) [#/Vol] 0 10*3/uL Normal 0-5 [facility] Comment on above: Performed By: #### L 500.4050, L101.9900, L100.0100, L501.6710 ####[facility] [address] [place], [address] Platelet mean volume (Bld) [Entitic vol] 10.8 fL Normal 6.2-12.0 [facility] Comment on above: Performed By: #### L 500.4050, L101.9900, L100.0100, L501.6710 ####[facility] [address] [place], [address] Platelets (Bld) [#/Vol] 232 10*3/uL Normal 150-450 [facility] Comment on above: Performed By: #### L 500.4050, L101.9900, L100.0100, L501.6710 ####[facility] [address] [place], [address] RBC (Bld) [#/Vol] 4.48 10*6/uL Normal 4.2-5.4 [facility] Comment on above: Performed By: #### L 500.4050, L101.9900, L100.0100, L501.6710 ####[facility] [address] [place], [address] RDW SD 42.5 fl Normal 35.1-43.9 [facility] Comment on above: Performed By: #### L 500.4050, L101.9900, L100.0100, L501.6710 ####[facility] [address] [place], [address] WBC (Bld) [#/Vol] 6.6 10*3/uL Normal 4.4-11.0 [facility] Comment on above: Performed By: #### L 500.4050, L101.9900, L100.0100, L501.6710 ####[facility] [address] [place], [address] CRPon 06-02-2024 C-REACTIVE PROT < 2.90 Normal 0.0-3.0 [facility] Comment on above: Result Comment: C-Re active Protein (CRP) provides useful information for the diagnosis, therapy and monitoring of inflammatory processes and associated diseases. For the evaluation of Relative Risk for Cardiovascular Disease, a High Sensitivity CRP (HSCRP) should be ordered. Performed By: #### L 500.4050, L101.9900, L100.0100, L501.6710 ####[facility] [address] [place], [address] Comprehensive Metabolic Prof ilon 06-02-2024 Albumin [Mass/Vol] 3.3 g/dL Normal 3.2-5.0 [facility] Comment on above: Performed By: #### L 500.4050, L101.9900, L100.0100, L501.6710 ####[facility] [address] [place], [address] Albumin/Globulin [Mass ratio] 0.9 {ratio} Normal 0.9-2.4 [facility] Comment on above: Performed By: #### L 500.4050, L101.9900, L100.0100, L501.6710 ####[facility] [address] [place], [address] ALK P 89 U/L Normal 45-117 [facility] Comment on above: Performed By: #### L 500.4050, L101.9900, L100.0100, L501.6710 ####[facility] [address] [place], [address] ALT [Catalytic activity/Vol] 20 U/L Normal 13-56 [facility] Comment on above: Performed By: #### L 500.4050, L101.9900, L100.0100, L501.6710 ####[facility] [address] [place], [address] AST [Catalytic activity/Vol] 17 U/L Normal 15-37 [facility] Comment on above: Performed By: #### L 500.4050, L101.9900, L100.0100, L501.6710 ####[facility] [address] [place], [address] Bilirubin [Mass/Vol] 0.60 mg/dL Normal 0.20-1.00 [facility] Comment on above: Result Comment: For patients on eltrombopag therapy, use of Dimension [place] TBIL is not recommended. Performed By: #### L 500.4050, L101.9900, L100.0100, L501.6710 ####[facility] [address] [place], [address] BUN/CRE 25.3 RATIO High 10-20 [facility] Comment on above: Performed By: #### L 500.4050, L101.9900, L100.0100, L501.6710 ####[facility] [address] [place], [address] CA,Total 9.5 mg/dL Normal 8.5-10.1 [facility] Comment on above: Performed By: #### L 500.4050, L101.9900, L100.0100, L501.6710 ####[facility] [address] [place], [address] Chloride [Moles/Vol] 103 mmol/L Normal 98-107 [facility] Comment on above: Performed By: #### L 500.4050, L101.9900, L100.0100, L501.6710 ####[facility] [address] [place], [address] CO2 [Moles/Vol] 29.0 mmol/L Normal 21.0-32.0 [facility] Comment on above: Performed By: #### L 500.4050, L101.9900, L100.0100, L501.6710 ####[facility] [address] [place], [address] Creatinine [Mass/Vol] 0.95 mg/dL Normal 0.55-1.02 [facility] Comment on above: Result Comment: The validity of the calculated GFR GFRAA in patients over 70 years has not been determined. Clinical correlation is essential. Performed By: #### L 500.4050, L101.9900, L100.0100, L501.6710 ####[facility] [address] [place], [address] EST GFR - AA 73 mL/min Normal >60 [facility] Comment on above: Result Comment: Afri can [place] GFR Calc Performed By: #### L 500.4050, L101.9900, L100.0100, L501.6710 ####[facility] [address] [place], [address] GAP 6 Normal 5-15 [facility] Comment on above: Performed By: #### L 500.4050, L101.9900, L100.0100, L501.6710 ####[facility] [address] [place], [address] GFR/1.73 sq M.predicted among non-blacks MDRD (S/P/Bld) [Vol rate/Area] 61 mL/min/{1.73_m2} Normal >60 [facility] Comment on above: Result Comment: Non- GFR Calc Performed By: #### L 500.4050, L101.9900, L100.0100, L501.6710 ####[facility] [address] [place], [address] Globulin (S) [Mass/Vol] 3.7 g/dL Normal 2.2-4.2 [facility] Comment on above: Performed By: #### L 500.4050, L101.9900, L100.0100, L501.6710 ####[facility] [address] [place], [address] Glucose [Mass/Vol] 129 mg/dL High 74-106 [facility] Comment on above: Result Comment: Fast ing Glucose result greater than or equal to 126 mg/dL suggests DIABETES MELLITUS per A.D.A. criteria. Performed By: #### L 500.4050, L101.9900, L100.0100, L501.6710 ####[facility] [address] [place], [address] Potassium [Moles/Vol] 3.7 mmol/L Normal 3.5-5.1 [facility] Comment on above: Performed By: #### L 500.4050, L101.9900, L100.0100, L501.6710 ####[facility] [address] [place], [address] Sodium [Moles/Vol] 139 mmol/L Normal 136-145 [facility] Comment on above: Performed By: #### L 500.4050, L101.9900, L100.0100, L501.6710 ####[facility] [address] [place], [address] T PROT 7.0 g/dL Normal 6.4-8.2 [facility] Comment on above: Performed By: #### L 500.4050, L101.9900, L100.0100, L501.6710 ####[facility] [address] [place], [address] Urea nitrogen [Mass/Vol] 24 mg/dL High 7-18 [facility] Comment on above: Performed By: #### L 500.4050, L101.9900, L100.0100, L501.6710 ####[facility] [address] [place], [address] Erythrocyte Sed Rateon 06-02 SED RATE 18 mm/hr Normal 0-30 [facility] Comment on above: Performed By: #### L 500.4050, L101.9900, L100.0100, L501.6710 ####[facility] [address] [place], [address] CBC W/Diff, Automatedon 03-23 Absolute Lymph 1.95 X10 3/uL Normal 0.83-4.51 [facility] Comment on above: Performed By: #### L 100.0100, L500.4050, L501.9985 ####[facility] [address] [place], [address] Absolute Neut 4.0 X10 3/uL Normal 2.0-7.7 [facility] Comment on above: Performed By: #### L 100.0100, L500.4050, L501.9985 ####[facility] [address] [place], [address] Basophils/100 WBC (Bld) 1.0 % Normal 0-1 [facility] Comment on above: Performed By: #### L 100.0100, L500.4050, L501.9985 ####[facility] [address] [place], [address] Eosinophils/100 WBC (Bld) 1.0 % Normal 0-5 [facility] Comment on above: Performed By: #### L 100.0100, L500.4050, L501.9985 ####[facility] [address] [place], [address] Erythrocyte distribution width (RBC) [Ratio] 13.2 % Normal 11.6-14.6 [facility] Comment on above: Performed By: #### L 100.0100, L500.4050, L501.9985 ####[facility] [address] [place], [address] Hematocrit (Bld) [Volume fraction] 40.9 % Normal 37-47 [facility] Comment on above: Performed By: #### L 100.0100, L500.4050, L501.9985 ####[facility] [address] [place], [address] Hemoglobin (Bld) [Mass/Vol] 13.5 g/dL Normal 12.0-15.0 [facility] Comment on above: Performed By: #### L 100.0100, L500.4050, L501.9985 ####[facility] [address] [place], [address] IG% 0.700 Normal 0.0-0.9 [facility] Comment on above: Result Comment: IG% - Immature Granulocytes (promyelocytes, myelocytes and metamyelocytes) > 1% indicates that a LEFT SHIFT is Present. Performed By: #### L 100.0100, L500.4050, L501.9985 ####[facility] [address] [place], [address] Lymphocytes/100 WBC (Bld) 28.6 % Normal 19-41 [facility] Comment on above: Performed By: #### L 100.0100, L500.4050, L501.9985 ####[facility] [address] [place], [address] MCH (RBC) [Entitic mass] 30.4 pg Normal 27.0-32.0 [facility] Comment on above: Performed By: #### L 100.0100, L500.4050, L501.9985 ####[facility] [address] [place], [address] MCHC (RBC) [Mass/Vol] 33.0 g/dL Normal 32-36 [facility] Comment on above: Performed By: #### L 100.0100, L500.4050, L501.9985 ####[facility] [address] [place], [address] MCV (RBC) [Entitic vol] 92.1 fL Normal 81-99 [facility] Comment on above: Performed By: #### L 100.0100, L500.4050, L501.9985 ####[facility] [address] [place], [address] Monocytes/100 WBC (Bld) 9.4 % Normal 0-10 [facility] Comment on above: Performed By: #### L 100.0100, L500.4050, L501.9985 ####[facility] [address] [place], [address] Neutrophils/100 WBC (Bld) 59.3 % Normal 47-70 [facility] Comment on above: Performed By: #### L 100.0100, L500.4050, L501.9985 ####[facility] [address] [place], [address] Nucleated RBC (Bld) [#/Vol] 0 10*3/uL Normal 0-5 [facility] Comment on above: Performed By: #### L 100.0100, L500.4050, L501.9985 ####[facility] [address] [place], [address] Platelet mean volume (Bld) [Entitic vol] 10.9 fL Normal 6.2-12.0 [facility] Comment on above: Performed By: #### L 100.0100, L500.4050, L501.9985 ####[facility] [address] [place], [address] Platelets (Bld) [#/Vol] 243 10*3/uL Normal 150-450 [facility] Comment on above: Performed By: #### L 100.0100, L500.4050, L501.9985 ####[facility] [address] [place], [address] RBC (Bld) [#/Vol] 4.44 10*6/uL Normal 4.2-5.4 [facility] Comment on above: Performed By: #### L 100.0100, L500.4050, L501.9985 ####[facility] [address] [place], [address] RDW SD 44.9 fl High 35.1-43.9 [facility] Comment on above: Performed By: #### L 100.0100, L500.4050, L501.9985 ####[facility] [address] [place], [address] WBC (Bld) [#/Vol] 6.8 10*3/uL Normal 4.4-11.0 [facility] Comment on above: Performed By: #### L 100.0100, L500.4050, L501.9985 ####[facility] [address] [place], [address] Comprehensive Metabolic Prof gisel 04-19-2024 Albumin [Mass/Vol] 3.5 g/dL Normal 3.2-5.0 [facility] Comment on above: Performed By: #### L 100.0100, L500.4050, L501.9985 ####[facility] [address] [place], [address] Albumin/Globulin [Mass ratio] 1.0 {ratio} Normal 0.9-2.4 [facility] Comment on above: Performed By: #### L 100.0100, L500.4050, L501.9985 ####[facility] [address] [place], [address] ALK P 89 U/L Normal 45-117 [facility] Comment on above: Performed By: #### L 100.0100, L500.4050, L501.9985 ####[facility] [address] [place], [address] ALT [Catalytic activity/Vol] 21 U/L Normal 13-56 [facility] Comment on above: Performed By: #### L 100.0100, L500.4050, L501.9985 ####[facility] [address] [place], [address] AST [Catalytic activity/Vol] 15 U/L Normal 15-37 [facility] Comment on above: Performed By: #### L 100.0100, L500.4050, L501.9985 ####[facility] [address] [place], [address] Bilirubin [Mass/Vol] 0.70 mg/dL Normal 0.20-1.00 [facility] Comment on above: Result Comment: For patients on eltrombopag therapy, use of Dimension [place] TBIL is not recommended. Performed By: #### L 100.0100, L500.4050, L501.9985 ####[facility] [address] [place], [address] BUN/CRE 21.1 RATIO High 10-20 [facility] Comment on above: Performed By: #### L 100.0100, L500.4050, L501.9985 ####[facility] [address] [place], [address] CA,Total 9.8 mg/dL Normal 8.5-10.1 [facility] Comment on above: Performed By: #### L 100.0100, L500.4050, L501.9985 ####[facility] [address] [place], [address] Chloride [Moles/Vol] 102 mmol/L Normal 98-107 [facility] Comment on above: Performed By: #### L 100.0100, L500.4050, L501.9985 ####[facility] [address] [place], [address] CO2 [Moles/Vol] 29.0 mmol/L Normal 21.0-32.0 [facility] Comment on above: Performed By: #### L 100.0100, L500.4050, L501.9985 ####[facility] [address] [place], [address] Creatinine [Mass/Vol] 1.00 mg/dL Normal 0.55-1.02 [facility] Comment on above: Result Comment: The validity of the calculated GFR GFRAA in patients over 70 years has not been determined. Clinical correlation is essential. Performed By: #### L 100.0100, L500.4050, L501.9985 ####[facility] [address] [place], [address] EST GFR - AA 69 mL/min Normal >60 [facility] Comment on above: Result Comment: Afri can [place] GFR Calc Performed By: #### L 100.0100, L500.4050, L501.9985 ####[facility] [address] [place], [address] GAP 8 Normal 5-15 [facility] Comment on above: Performed By: #### L 100.0100, L500.4050, L501.9985 ####[facility] [address] [place], [address] GFR/1.73 sq M.predicted among non-blacks MDRD (S/P/Bld) [Vol rate/Area] 57 mL/min/{1.73_m2} Low >60 [facility] Comment on above: Result Comment: Non- GFR Calc Performed By: #### L 100.0100, L500.4050, L501.9985 ####[facility] [address] [place], [address] Globulin (S) [Mass/Vol] 3.6 g/dL Normal 2.2-4.2 [facility] Comment on above: Performed By: #### L 100.0100, L500.4050, L501.9985 ####[facility] [address] [place], [address] Glucose [Mass/Vol] 103 mg/dL Normal 74-106 [facility] Comment on above: Result Comment: Fast ing Glucose result from 100 to 125 mg/dL suggests IMPAIRED HOMEOSTASIS per A.D.A. criteria. Performed By: #### L 100.0100, L500.4050, L501.9985 ####[facility] [address] [place], [address] Potassium [Moles/Vol] 4.3 mmol/L Normal 3.5-5.1 [facility] Comment on above: Performed By: #### L 100.0100, L500.4050, L501.9985 ####[facility] [address] [place], [address] Sodium [Moles/Vol] 138 mmol/L Normal 136-145 [facility] Comment on above: Performed By: #### L 100.0100, L500.4050, L501.9985 ####[facility] [address] [place], [address] T PROT 7.1 g/dL Normal 6.4-8.2 [facility] Comment on above: Performed By: #### L 100.0100, L500.4050, L501.9985 ####[facility] [address] [place], [address] Urea nitrogen [Mass/Vol] 21 mg/dL High 7-18 [facility] Comment on above: Performed By: #### L 100.0100, L500.4050, L501.9985 ####[facility] [address] [place], [address] Hemoglobin A1con 04-19-2024 HbA1c (Bld) [Mass fraction] 5.9 % High 3.8-5.6 [facility] Comment on above: Result Comment: Norm al < 5.7 % Prediabetic 5.7 - 6.4 % Diabetic >or= 6.5 % Please note range changes. Performed By: #### L 100.0100, L500.4050, L501.9985 ####[facility] [address] [place], [address] Internal Medicine Office Vis itolauren 04-19-2024 Internal Medicine Office Visit [facility] [address] [place] [address] [place] [address] OFFICE VISIT Date of Service: 04/19/24 MR#: [id number] Acct: [id number] Name: GEORGIA RO Rep #: [id number] : 1945 Provider: Dr. Eboni garcia MD Age/Sex: 78/F Location: [facility] Status: Signed Intake Vital Signs 01/01/24 11:20 [...] fu Chief Complaint: Follow-up chronic conditions. Weight. Rn On Site Required: No Is patient in pain?: No [...] past year?: Yes (04/09/24 minor knee injury) [facility] Medical History PONV (postoperative nausea and [...] is ope (more content not included)... Normal [facility] EGD Reporton 03-29-2024 EGD Report [facility] Medical Records Department [address] [place] [address] EGD Report MR#: [id number] Acct: [id number] Name: GEORGIA RO Rep #: [id number] : 1945 78 From: Moustapha Stanley DO PCP: Dr. Eboni Katz MD Status:[facility] Patient Name: Georgia Ro Procedure Date: 03/29/2024 [...] pathology results. Procedure Code(s): --- Professional --- 03335, Esophagogastroduodenosc opy, flexible, transoral; with biopsy, single or multiple CPT copyright 2021 [employer] [place]. All rights reserved. The codes documented in this report are preliminary and upon signal tower director review may be revised to meet current compliance requirements. Moustapha Stanley DO 03/29/2024 9:02:24 AM This report has been signed electronically. Number of Addenda: 0 Note Initiated On: 03/29/2024 8:48 AM 03/29/24901 Date [facility]: Date _ (more content not included)... Normal [facility] H Pylori (initial)on H Pylori (initial) --- Patient Age/Sex Location Account Attending Physician GEORGIA RO 78/F EN [id number] Moustapha Stanley DO Specimen: [id number] Received: 03/29/24 Status: VIVEK Jones Num: [id number] Spec Type: IMMUNO Subm Dr: Moustapha Friend, DO PHYSICIAN INSTITUTION [address] [place], [place] [address] SPECIMEN INFORMATION: Tissue Source: B- Gastric body biopsy Clinical Info: Acute bleeding Specimen Number: [id number] CPT code: 77028 METHODOLOGY: Deparaffinized sections of prefer/formalin-fixed tissue or [...] developed and their performance characteristics determined by [facility]. They may not have been cleared or approved by the U.S. Food and Drug Administration. The FDA has determined that such clearance or approval is not necessary. The above immunohistochemical/tomasz Kelby markers are ordered and reviewed by the Pathologist. INTERPRETATION: B. Gastric body, biopsy: Negative for Helicobacter pylori organisms. AMJennifer 03/30/2024 Signed (signature on file) Dr. Ricardo Sargent, 03/30/24 1156 Normal [facility] Comment on above: Performed By: #### M 7400.3302, M100.7900, L100.0100, L7000.0700, L3410.9992, M100.6796, M600.5000, L7000.0750 #### [facility] [address] [facility] [place], [place], [address] MR/POSTOP.Dotty 03-29-2024 MR/POSTOP.[facility] Medical Records Department [address] [place] [address] Anesthesia Postop Eval I 03/29/24 09 MR#: [id number] Acct: [id number] Name: GEORGIA RO ANN Rep #: [id number] : 1945 78 From: Kavin Bowers PCP: Dr. Eboni Katz MD Status:[facility] Race: C Location: [place] [address] Anesthesia: Postop Eval I Current Vital Signs [...] Kavin Lepe Signature: Date CC: Signed Normal [facility] MR/EJAYGJKF0kg 03-29-2024 [facility] Medical Records Department [address] [place] [address] Anesthesia Postop Eval II 03/29/24918 MR#: [id number] Acct: [id number] Name: GEORGIA RO ANN Rep #: [id number] : 1945 78 From: Bud Mata MD PCP: Dr. Eboni Katz MD Status:[facility] Y Race: C Location: [place] [address] Anesthesia Postop Eval I Sum Postop Eval [...] Bud Lepe Signature: Date CC: Signed Normal [facility] Special Stain Group Ion 12-0 Special Stain Group I ----- Patient Age/Sex Location Account Attending Physician GE[place]IA RO/F EN [id number] Moustapha Stanley DO Specimen: [id number] Received: 03/29/24 Status: VIVEK Jones Num: [id number] Spec Type: EGD BIOPSY Subm Dr: DO MARTHA Shi OPERATION: EGD with biopsy PRE-OP DIAGNOSIS: Acute [...] evidence of goblet cell metaplasia. See comment. 03/30/2024 COMMENT B. The results of immunohistochemistry for Helicobacter pylori will be reported separately ([id number]). C. Alcian blue/PAS stain with matched control [...] Age/Sex Location Account Attending Physician GE[place] RO/F EN [id number] Moustapha Stanley DO [facility]:[id number] Patient Age/Sex Location Account Attending Physician GEORGIA RO 78/F EN [id number] Moustaphalauren Stanley, DO Signed (signature on file) Dr. Ricardo Sargent DO 03/30/24 1158 Normal [facility] Comment on above: Performed By: #### M 7400.3302, M100.7900, L100.0100, L7000.0700, L3410.9992, M100.6796, M600.5000, L7000.0750 #### [facility] [address] [place], [address] Calprotectin, Stoolon [address] 174 ug/g Abnormal 0-120 [facility] Comment on above: Result Comment: Conc entration Interpretation Follow-Up < 5 - 50 ug/g Normal None >50 -120 ug/g Borderline Re-evaluate in 4-6 weeks >120 ug/g Abnormal Repeat as clinically indicated Performed at: [address] [id number] District Director: Hattie Hill MD, Phone: [phone] Performed By: #### L 504.2610, L500.4050, L100.0100 #### [facility] [address] [place], [address] CBC W/Diff, Automatedon 02-19 Absolute Lymph 2.01 X10 3/uL Normal 0.83-4.51 [facility] Comment on above: Performed By: #### L 504.2610, L500.4050, L100.0100 #### [facility] [address] [place], [address] Absolute Neut 4.4 X10 3/uL Normal 2.0-7.7 [facility] Comment on above: Performed By: #### L 504.2610, L500.4050, L100.0100 #### [facility] [address] [place], [address] Basophils/100 WBC (Bld) 0.9 % Normal 0-1 [facility] Comment on above: Performed By: #### L 504.2610, L500.4050, L100.0100 #### [facility] [address] [place], [address] Eosinophils/100 WBC (Bld) 2.0 % Normal 0-5 [facility] Comment on above: Performed By: #### L 504.2610, L500.4050, L100.0100 #### [facility] [address] [place], [address] Erythrocyte distribution width (RBC) [Ratio] 13.7 % Normal 11.6-14.6 [facility] Comment on above: Performed By: #### L 504.2610, L500.4050, L100.0100 #### [facility] [address] [place], [address] Hematocrit (Bld) [Volume fraction] 40.7 % Normal 37-47 [facility] Comment on above: Performed By: #### L 504.2610, L500.4050, L100.0100 #### [facility] [address] [place], [address] Hemoglobin (Bld) [Mass/Vol] 13.0 g/dL Normal 12.0-15.0 [facility] Comment on above: Performed By: #### L 504.2610, L500.4050, L100.0100 #### [facility] [address] [place], [address] IG% 1.900 High 0.0-0.9 [facility] Comment on above: Result Comment: IG% - Immature Granulocytes (promyelocytes, myelocytes and metamyelocytes) > 1% indicates that a LEFT SHIFT is Present. Performed By: #### L 504.2610, L500.4050, L100.0100 #### [facility] [address] [place], [address] Lymphocytes/100 WBC (Bld) 26.8 % Normal 19-41 [facility] Comment on above: Performed By: #### L 504.2610, L500.4050, L100.0100 #### [facility] [address] [place], [address] MCH (RBC) [Entitic mass] 29.5 pg Normal 27.0-32.0 [facility] Comment on above: Performed By: #### L 504.2610, L500.4050, L100.0100 #### [facility] [address] [place], [address] MCHC (RBC) [Mass/Vol] 31.9 g/dL Low 32-36 [facility] Comment on above: Performed By: #### L 504.2610, L500.4050, L100.0100 #### [facility] [address] [place], [address] MCV (RBC) [Entitic vol] 92.5 fL Normal 81-99 [facility] Comment on above: Performed By: #### L 504.2610, L500.4050, L100.0100 #### [facility] [address] [place], [address] Monocytes/100 WBC (Bld) 9.9 % Normal 0-10 [facility] Comment on above: Performed By: #### L 504.2610, L500.4050, L100.0100 #### [facility] [address] [place], [address] Neutrophils/100 WBC (Bld) 58.5 % Normal 47-70 [facility] Comment on above: Performed By: #### L 504.2610, L500.4050, L100.0100 #### [facility] [address] [place], [address] Nucleated RBC (Bld) [#/Vol] 0 10*3/uL Normal 0-5 [facility] Comment on above: Performed By: #### L 504.2610, L500.4050, L100.0100 #### [facility] [address] [place], [address] Platelet mean volume (Bld) [Entitic vol] 9.6 fL Normal 6.2-12.0 [facility] Comment on above: Performed By: #### L 504.2610, L500.4050, L100.0100 #### [facility] [address] [place], [address] Platelets (Bld) [#/Vol] 324 10*3/uL Normal 150-450 [facility] Comment on above: Performed By: #### L 504.2610, L500.4050, L100.0100 #### [facility] [address] [place], [address] RBC (Bld) [#/Vol] 4.40 10*6/uL Normal 4.2-5.4 [facility] Comment on above: Performed By: #### L 504.2610, L500.4050, L100.0100 #### [facility] [address] [place], [address] RDW SD 46.6 fl High 35.1-43.9 [facility] Comment on above: Performed By: #### L 504.2610, L500.4050, L100.0100 #### [facility] [address] [place], [address] WBC (Bld) [#/Vol] 7.5 10*3/uL Normal 4.4-11.0 [facility] Comment on above: Performed By: #### L 504.2610, L500.4050, L100.0100 #### [facility] [address] [place], [address] Stool Lactoferrin/WBCon 02-19 WBCST Normal Reference Ran ge = Negative Fecal WBC Lactoferrin Negative: No Fecal WBC Lactoferrin present Normal [facility] Comment on above: Performed By: #### L 504.2610, L500.4050, L100.0100 #### [facility] [address] [place], [address] Stool Occult Blood iFOBon STOB Normal Reference Ran ge = Negative Immunochemical Fecal Occult Blood (iFOBT) method. Hemoccult Stl Ql IA Limitation: Menstrual bleeding, constipation bleeding, bleeding hemorrhoids, and urinary bleeding conditions may interfere with test. Occult Blood Negative Normal [facility] Comment on above: Performed By: #### L 504.2610, L500.4050, L100.0100 #### [facility] [address] [place], [address] No Panel InformationOrdered By: Konstantin Saha on 06-12-2023 Hepatitis B Surface Antibody Non-Reactive . [facility] Comment on above: Non Reactive: Incons istent with immunity, less than 10 mIU/mL Reactive: Consistent with immunity, greater than 9.9 mIU/mL Hepatitis C Antibody Non-Reactive Non Reactive [facility] Hepatitis C Antibody Comment Comment . [facility] Comment on above: Not infected with HC V unless early or acute infection issuspected (which may be delayed in an immunocompromisedindividual), or other evidence exists to indicate HCVinfection.Performed at: [facility] [address] [id number] Director: Enrique Wright PhD, Phone: [phone] Serum hepatitis B virus core antibody detectionOrdered By: Konstantin Saha on 06-12-2023 HBV core Ab Ql (S) Negative Negative [facility] Serum or plasma hepatitis B virus surface antigen detection by immunoassayOrdered By: Konstantin Saha on 06-12-2023 HBV surface Ag IA Ql Negative Negative [facility] Absolute lymphocyte countOrd ered By: Eboni Katz on 05-14-2023 Lymphocytes Auto (Unsp spec) [#/Vol] 2.11 10*3/uL 0.83-4.51 [facility] Automated lymphocyte count a s percentage of total leukocytesOrdered By: Eboni Katz on 05-14-2023 Lymphocytes/100 WBC Auto (Unsp spec) 33.1 % 19-41 [facility] Basophil percentageOrdered B y: Eboni Katz on 05-14-2023 Basophils/100 WBC (Bld) 1.1 % 0-1 [facility] Bilirubin [Mass/Vol] 0.70 mg/dL 0.20-1.00 [facility] Comment on above: For patients on eltr ombopag therapy, use of Dimension [place] TBIL is not recommended. Chloride [Moles/Vol] 105 mmol/L 98-107 [facility] Cholesterol [Mass/Vol] 189 mg/dL <200 [facility] Comment on above: <200 mg/dL Desirable 200-240 mg/dL Borderline >240 mg/dL High Risk Eosinophils/100 WBC (Bld) 1.7 % 0-5 [facility] Glucose [Mass/Vol] 106 mg/dL 74-106 [facility] Comment on above: Fasting Glucose resu lt from 100 to 125 mg/dL suggests IMPAIRED HOMEOSTASIS per A.D.A. criteria. Hemoglobin (Bld) [Mass/Vol] 14.0 g/dL 12.0-15.0 [facility] Monocytes/100 WBC (Bld) 9.1 % 0-10 [facility] Neutrophils (Bld) [#/Vol] 3.5 10*3/uL 2.0-7.7 [facility] Neutrophils/100 WBC (Bld) 54.5 % 47-70 [facility] Potassium [Moles/Vol] 3.9 mmol/L 3.5-5.1 [facility] Protein [Mass/Vol] 7.0 g/dL 6.4-8.2 [facility] Sodium [Moles/Vol] 137 mmol/L 136-145 [facility] Triglyceride [Mass/Vol] 140 mg/dL <199 [facility] Comment on above: The drugs N-Acetylcy steine and Metamizole may falsely depress this assay.Serum Triglycerides Reference Interval Normal <150 mg/dL Borderline high 150 - 199 mg/dL High 200 - 499 mg/dL Very High > or = 500 mg/dL WBC (Bld) [#/Vol] 6.4 10*3/uL 4.4-11.0 [facility] Determination of erythrocyte mean corpuscular volume (MCV)Ordered By: Eboni Katz on 05-14-2023 MCV (RBC) [Entitic vol] 90.8 fL 81-99 [facility] Erythrocyte distribution wid th ratioOrdered By: [place]insvillearetha Allencarola on 05-14-2023 Erythrocyte distribution width (RBC) [Ratio] 13.1 % 11.6-14.6 [facility] Erythrocyte distribution wid th standard deviationOrdered By: Donwhitinsvillearetha Katz on 05-14-2023 Erythrocyte distribution width (RBC) [Entitic vol] 43.8 fL 35.1-43.9 [facility] Hematocrit Auto (Bld) [Volum e fraction]Ordered By: Eboni Katz on 05-14-2023 Hematocrit (Bld) [Volume fraction] 43.5 % 37-47 [facility] High density lipoprotein (HD L) measurementOrdered By: Eboni Katz on 05-14-2023 Cholesterol in HDL (Body fld) [Mass/Vol] 44 mg/dL >40 [facility] Comment on above: The drugs N-Acetylcy steine and Metamizole may falsely depress this assay. Reference Range HDL <40 mg/dL Low HDL Cholesterol HDL >or= 60 mg/dL High HDL Cholesterol Immature granulocytes/100 WB C Auto (Bld)Ordered By: Eboni Katz on 05-14-2023 Immature granulocytes/100 WBC (Bld) 0.500 % 0.0-0.9 [facility] Comment on above: IG% - Immature Granu locytes (promyelocytes, myelocytes and metamyelocytes) > 1% indicates that a LEFT SHIFT is Present. Laboratory - Chemistry and C hemistry - challengeOrdered By: Eboni Katz on 05-14-2023 Albumin/Globulin [Mass ratio] 0.9 {ratio} 0.9-2.4 [facility] ALP [Catalytic activity/Vol] 80 U/L 45-117 [facility] ALT [Catalytic activity/Vol] 22 U/L 13-56 [facility] CO2 [Moles/Vol] 27.0 mmol/L 21.0-32.0 [facility] Globulin (S) [Mass/Vol] 3.6 g/dL 2.2-4.2 [facility] Urea nitrogen/Creatinine [Mass ratio] 21.7 mg/mg 10-20 [facility] - Hematology and Cell countsOrdered By: Eboni Katz on 05-14-2023 MCH (RBC) [Entitic mass] 29.2 pg 27.0-32.0 [facility] MCHC (RBC) [Mass/Vol] 32.2 g/dL 32-36 [facility] Nucleated RBC/100 WBC (Bld) [Ratio] 0 % 0-5 [facility] Platelets (Bld) [#/Vol] 250 10*3/uL 150-450 [facility] Low density lipoprotein (LDL ) cholesterol measurementOrdered By: Eboni Katz on 05-14-2023 Cholesterol in LDL (Body fld) [Moles/Vol] 117 mg/dL 0-130 [facility] No Panel InformationOrdered By: Eboni Katz on 05-14-2023 Estimated GFR (MDRD) Amer 92 mL/min >60 [facility] Comment on above: GFR Calc Estimated GFR (MDRD) Non-Af Amer 76 mL/min >60 [facility] Comment on above: Non- GFR Calc Platelet mean volume Robert-Ec ker (Bld) [Entitic vol]Ordered By: Eboni Katz on 05-14-2023 Platelet mean volume (Bld) [Entitic vol] 11.0 fL 6.2-12.0 [facility] RBC Auto (Bld) [#/Vol]Ordere d By: Eboni Katz on 05-14-2023 RBC (Bld) [#/Vol] 4.79 10*6/uL 4.2-5.4 [facility] Serum or plasma calcium jose l urement (mass/volume)Ordered By: Eboni Katz on 05-14-2023 Calcium [Mass/Vol] 9.4 mg/dL 8.5-10.1 [facility] Serum or plasma creatinine m easurement (mass/volume)Ordered By: Eboni Katz on 05-14-2023 Creatinine [Mass/Vol] 0.78 mg/dL 0.55-1.02 [facility] Comment on above: The validity of the calculated GFR & GFRAA in patients over 70 years has not been determined. Clinical correlation is essential. Serum or plasma urea nitroge n measurement (mass/volume)Ordered By: Eboni Katz on 05-14-2023 Urea nitrogen [Mass/Vol] 17 mg/dL 7-18 [facility] Thin prep Papanicolaou smear with manual screeningOrdered By: Eboni Katz on 05-14-2023 Thin prep Papanicolaou smear with manual screening 3.4 g/dL 3.2-5.0 [facility] Thin prep Papanicolaou smear with manual screening 20 U/L 15-37 [facility] Thin prep Papanicolaou smear with manual screening 5 5-15 [facility] Very low density lipoprotein (VLDL) cholesterol measurementOrdered By: Eboni Katz on 05-14-2023 Cholesterol in VLDL Calc [Moles/Vol] 28 mg/dL 5-40 [facility] Whole blood hemoglobin A1c/t otal hemoglobin ratio (mass fraction)Ordered By: Eboni Katz on 05-14-2023 HbA1c (Bld) [Mass fraction] 6.0 % 3.8-5.6 [facility] Comment on above: Normal < 5.7 % Predi abetic 5.7 - 6.4 % Diabetic >or= 6.5 % Please note range changes. Laboratory - Hematology and Cell countson 02-10-2023 HbA1c (Bld) [Mass fraction] 6.2 % 4.2-6.3 [facility] Basophil percentageOrdered B y: Eboni Katz on 10-07-2022 Chloride [Moles/Vol] 103 mmol/L 98-107 [facility] Glucose [Mass/Vol] 148 mg/dL 74-106 [facility] Comment on above: Fasting Glucose resu lt greater than or equal to 126 mg/dL suggests DIABETES MELLITUS per A.D.A. criteria. Potassium [Moles/Vol] 3.6 mmol/L 3.5-5.1 [facility] Sodium [Moles/Vol] 138 mmol/L 136-145 [facility] - Chemistry and C hemistry - challengeOrdered By: Eboni Katz on 10-07-2022 CO2 [Moles/Vol] 29.0 mmol/L 21.0-32.0 [facility] Urea nitrogen/Creatinine [Mass ratio] 23.1 mg/mg 10-20 [facility] No Panel InformationOrdered By: Eboni Katz on 10-07-2022 Estimated GFR (MDRD) Amer 78 mL/min >60 [facility] Comment on above: GFR Calc Estimated GFR (MDRD) Non-Af Amer 64 mL/min >60 [facility] Comment on above: Non- GFR Calc Serum or plasma calcium jose l urement (mass/volume)Ordered By: Eboni Katz on 10-07-2022 Calcium [Mass/Vol] 9.5 mg/dL 8.5-10.1 [facility] Serum or plasma creatinine m easurement (mass/volume)Ordered By: Eboni Katz on 10-07-2022 Creatinine [Mass/Vol] 0.91 mg/dL 0.55-1.02 [facility] Comment on above: The validity of the calculated GFR & GFRAA in patients over 70 years has not been determined. Clinical correlation is essential. Serum or plasma urea nitroge n measurement (mass/volume)Ordered By: Eboni Katz on 10-07-2022 Urea nitrogen [Mass/Vol] 21 mg/dL 11-05 [facility] Thin prep Papanicolaou smear with manual screeningOrdered By: [facility] on 10-07-2022 Thin prep Papanicolaou smear with manual screening 6 09-02 [facility] Whole blood hemoglobin A1c/t otal hemoglobin ratio (mass fraction)Ordered By: Eboni Katz on 10-07-2022 HbA1c (Bld) [Mass fraction] 6.1 % 3.8-5.6 [facility] Comment on above: Normal < 5.7 % Predi abetic 5.7 - 6.4 % Diabetic >or= 6.5 % Please note range changes. Laboratory - Hematology and Cell countson 07-05-2022 HbA1c (Bld) [Mass fraction] 6.1 % 4.2-6.3 [facility] Absolute lymphocyte counton 09-14-2021 Lymphocytes Auto (Unsp spec) [#/Vol] 2.11 10*3/uL 0.83-4.51 [facility] Work Phone: Basophil percentageon 2021 Basophils/100 WBC (Bld) 0.8 % 0-1 [facility] Work Phone: Eosinophils/100 WBC (Bld) 2.1 % 0-5 [facility] Work Phone: Neutrophils (Bld) [#/Vol] 3.3 10*3/uL 2.0-7.7 [facility] Work Phone: Neutrophils/100 WBC (Bld) 52.9 % 47-70 [facility] Work Phone: WBC (Bld) [#/Vol] 6.3 10*3/uL 4.4-11.0 [facility]: Blood erythrocytes count (nu mber/volume)on 09-14-2021 RBC (Bld) [#/Vol] 4.72 10*6/uL 4.2-5.4 [facility] Work Phone: Blood hemoglobin measurement (mass/volume)on 09-14-2021 Hemoglobin (Bld) [Mass/Vol] 14.1 g/dL 12.0-15.0 [facility] Work Phone: Blood lymphocytes/100 leukoc yteson 09-14-2021 Lymphocytes/100 WBC (Bld) 33.5 % 19-41 [facility] Work Phone: [phone] Blood monocytes/100 leukocyt eson 09-14-2021 Monocytes/100 WBC (Bld) 9.7 % 0-10 [facility] Work Phone: Blood platelet mean volumeon 09-14-2021 Platelet mean volume (Bld) [Entitic vol] 10.8 fL 6.2-12.0 [facility] Work Phone: Determination of erythrocyte mean corpuscular volume (MCV)on 09-14-2021 MCV (RBC) [Entitic vol] 86.9 fL 81-99 [facility] Work Phone: Hematocrit Auto (Bld) [Volum e fraction]on 09-14-2021 Hematocrit (Bld) [Volume fraction] 41.0 % 37-47 [facility] Work Phone: Laboratory - Hematology and Cell countson 09-14-2021 Erythrocyte distribution width (RBC) [Entitic vol] 42.5 fL 35.1-43.9 [facility] Work Phone: Erythrocyte distribution width (RBC) [Ratio] 13.3 % 11.6-14.6 [facility] Work Phone: Immature granulocytes/100 WBC (Bld) 1.000 % 0.0-0.9 [facility] Work Phone: Comment on above: IG% - Immature Granu locytes (promyelocytes, myelocytes and metamyelocytes) > 1% indicates that a LEFT SHIFT is Present. MCH (RBC) [Entitic mass] 29.9 pg 27.0-32.0 [facility] Work Phone: Nucleated RBC/100 WBC (Bld) [Ratio] 0 % 0-5 [facility] Work Phone: MCHC Auto (RBC) [Mass/Vol]on 09-14-2021 MCHC (RBC) [Mass/Vol] 34.4 g/dL 32-36 [facility] Work Phone: Platelets bldon 09-14-2021 Platelets (Bld) [#/Vol] 203 10*3/uL 150-450 [facility] Work Phone: Basophil percentageon 2021 Chloride [Moles/Vol] 102 mmol/L 98-107 [facility] Work Phone: Glucose [Mass/Vol] 123 mg/dL 74-106 [facility] Work Phone: Comment on above: Fasting Glucose resu lt from 100 to 125 mg/dL suggests IMPAIRED HOMEOSTASIS per A.D.A. criteria. Potassium [Moles/Vol] 3.5 mmol/L 3.5-5.1 [facility] Work Phone: Sodium [Moles/Vol] 138 mmol/L 136-145 [facility] Work Phone: Laboratory - Chemistry and C hemistry - challengeon 09-03-2021 CO2 [Moles/Vol] 31.0 mmol/L 21.0-32.0 [facility] Work Phone: Natriuretic peptide B (Bld) [Mass/Vol] 26.0 pg/mL 0-100 [facility] Work Phone: Urea nitrogen/Creatinine [Mass ratio] 19.6 mg/mg 10-20 [facility] Work Phone: No Panel Informationon 09-03 Estimated GFR (MDRD) Amer 88 mL/min >60 [facility] Work Phone: Comment on above: GFR Calc Estimated GFR (MDRD) Non-Af Amer 73 mL/min >60 [facility] Work Phone: Comment on above: Non- GFR Calc Serum or plasma calcium jose l urement (mass/volume)on 09-03-2021 Calcium [Mass/Vol] 9.4 mg/dL 8.5-10.1 [facility] Work Phone: Serum or plasma creatinine m easurement (mass/volume)on 09-03-2021 Creatinine [Mass/Vol] 0.82 mg/dL 0.55-1.02 [facility] Work Phone: Comment on above: The validity of the calculated GFR & GFRAA in patients over 70 years has not been determined. Clinical correlation is essential. Serum or plasma urea nitroge n measurement (mass/volume)on 09-03-2021 Urea nitrogen [Mass/Vol] 16 mg/dL 7-18 [facility] Work Phone: Thin prep Papanicolaou smear with manual screeningon 09-03-2021 Thin prep Papanicolaou smear with manual screening 5 5-15 [facility] Work Phone: OBSOLETEon 03-10-2019 OBSOLETE Refill (INTMWS) [place] ([id number]) 1945 F Date Time Provider Department 03/10/19 [...] contact current PCP for refills. Kameron Bernardo APRN.CLINICAL TRIAL EDUCATOR Allergies As of Date: 03/10/2019 Noted Allergy Reaction environmental [Other] 02/20/2006 Comments: ragweed VICODIN (HYDROCODONE-ACETAMINOP HE*12/03/2004 9 - Itching 14 - Other: See Comments Comments: red all over ZESTRIL (LISINOPRIL) 12/03/2004 3 - Cough Date Reviewed: 03/24/2018 Reviewed by: Georegtte Sanabria Ma - Fully Assessed Reason for [...] Status:Closed by SETH CHOUDHARY CMA on 03/15/19 [facility] OBSOLETEon 11-02-2018 OBSOLETE Refill (INTMWS) [place] ([id number]) 1945 F Date Time Provider Department 11/02/18 [...] Not applicable Please advise. Thank you. Georgette Bernardo, WARDROBE SPECIALIST.CLINICAL TRIAL EDUCATOR 11/02/2018 4:33 PM Signed The following approved medication requests have been transmitted electronically. Signed Prescriptions Disp Refills rOPINIRole (REQUIP) 0.5 mg tablet 270 tablet 1 Sig: Take 1 tablet by mouth three times daily. ENRIQUE: No Authorizing Provider: KAMERON BERNARDO (LISA) Kameron Bernardo APRN.CNP Allergies As of Date: 11/02/2018 [...] Status:Closed by KAMERON BERNARDO CNP on 11/02/18 [facility] OBSOLETEon 10-20-2018 OBSOLETE Refill (FAMPWS) [place] ([id number]) 1945 F Date Time Provider Department 10/20/18 [facility] During your visit today, we recorded the following information about you: Mickilaila Mcginnis MA 10/20/2018 1:54 PM Signed Physician: [facility] Call from pharmacy requesting refill. Please E-Scribe Last OV: 03/24/18 with [facility] No future office visit Pending Prescriptions Disp Refills ROPINIROLE 0.5 MG TABLET 270 tablet 3 Sig: Take 1 tablet by mouth three times daily. ENRIQUE: Monique Bernardo APRN.CLINICAL TRIAL EDUCATOR 10/20/2018 5:13 PM Signed Review of patient's medical record shows active prescription at pharmacy. Kameron Bernardo APRN.CLINICAL TRIAL EDUCATOR Allergies As of Date: 10/20/2018 Noted Allergy [...] Status:Closed by SETH CHOUDHARY CMA on 10/21/18 [facility] OBSOLETEon 10-07-2018 OBSOLETE Refill (INTMWS) [place] ([id number]) 1945 F Date Time Provider Department 10/07/18 [...] applicable Please advise. Thank you. Erin Bernardo APRN.CLINICAL TRIAL EDUCATOR 10/08/2018 10:40 AM Signed The following approved medication requests have been transmitted electronically. Signed Prescriptions Disp Refills losartan (COZAAR) 50 mg tablet 90 tablet 0 Sig: Take 1 tablet by mouth once daily. ENRIQUE: No Authorizing Provider: KAMERON BERNARDO (CLINICAL TRIAL EDUCATOR) Kameron Bernardo APRN.CLINICAL TRIAL EDUCATOR Allergies As of Date: 10/07/2018 Noted Allergy [...] Status:Closed by KAMERON BERNARDO CNP on 10/08/18 [facility] OBSOLETEon 08-31-2018 OBSOLETE Refill (INTMWS) [place] ([id number]) 1945 F Date Time Provider Department 08/31/18 [facility]INT[employer] INTAngelicaWS During your visit today, we recorded the following information about you: Seth Choudhary [facility] 08/31/2018 9:23 AM Signed Patient [...] Authorizing Provider: KAMERON BERNARDO (LISA) Kameron Bernardo APRN.CNP Allergies As of Date: 08/31/2018 [...] Status:Closed by KAMERON BERNARDO CNP on 08/31/18 [facility] PROGRESSon 05-12-2018 PROGRESS HNO ID: [id number] Author: Cintia (Rt) Cheli Mcginnis Service: (none) Author Type: Mother Helper Type: Progress Notes Filed: 05/12/2018 8:25 AM [...] PERIPHERAL IV DATA: Not applicable SIGNED BY: Cintia Mcginnis RT May 12, 2018 8:07 AM Normal [facility] XR ANKLE 3V AP/LAT/OBL LTon 05-12-2018 XR [...] There is no focal soft tissue swelling. Head Of Product: Asth[employer]racker Transcribe Date/Time: May 12 2018 9:07A Dictated by : GIL MARTÍNEZ MD This examination was interpreted and the report reviewed and electronically signed by: GIL MARTÍNEZ MD on May 12 2018 9:11AM EST [id number] Normal [facility] XR TIBIA FIBULA 2V AP/LAT LT on [...] There is no focal soft tissue swelling. Head Of Product: Asthmatracker Transcribe Date/Time: May 12 2018 9:07A Dictated by : GIL MARTÍNEZ MD This examination was interpreted and the report reviewed and electronically signed by: GIL MARTÍNEZ MD on May 12 2018 9:11AM EST [id number] [facility] (INTMWS) [place] ([id number]) 1945 F Date Time Provider Department 05/04/18 KAMERON BERNARDO ([facility]) INTMWS During your visit today, we recorded the following information about you: Lilli Vale RN 05/04/2018 2:25 PM Signed Tricia merrill from [employer], part of [employer] regarding MRI of left ankle. This has been reviewed by medical doctor md/medical director and he would need additional clinical information to consider this for coverage. A peer to peer would need completed before 05/09/18, to consider this for possible coverage. Please call for peer to peer. Case # [id number]. Please review and advise. CARLITA Davis LPN 05/05/2018 9:18 AM Signed Vero with [employer], part of [employer] calling with an updated phone number to call to to the peer to peer [phone] Option 4. Case # [id number]. Lilli Gomez RN 05/11/2018 8:54 AM Signed Moises Monge- esvin PA for MRI has been denied. director of casework did not approve request due to no plain x-ray results. Will mail letter with appeal options to Kameron Bernardo (reports they have a blocked fax # for Megan Bernardo- they are not allowed to fax to). Call with any questions, case # [id number]. Kameron Bernardo APRN.CLINICAL TRIAL EDUCATOR 05/11/2018 10:06 AM Signed Can we please touch base with patient and let her know that the MRI was denied. They are requesting plain films to be completed first, will order xray if she is still having pain and swelling of the lower extremity. If symptoms are improving there is no need to proceed with imaging. 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 [facility] [place] RO ([id number]) 1945 F Date Time Provider Department 03/24/18 8:40 AM KAMERON BERNARDO (LISA) INTMWS During your visit today, we recorded [...] up to be determined by imaging studies Kmaeron Bernardo APRN.CLINICAL TRIAL EDUCATOR Prescription instructions reviewed with patient as applicable. Potential red flag symptoms discussed with the patient. Reviewed appropriate action plan to take if red flag symptoms occur. Patient agreeable to treatment plan. Kameron Bernardo APRN.CLINICAL TRIAL EDUCATOR Referring Provider: SELF [[id number]] Allergies As of [...] capsuleRfl: 3 US EXTREMITY MASS/FLUID COLLECTION LT [[id number]] Order #: [id number] FUTURE Prescriptions as of 03/24/2018 Sig: POTASSIUM [...] not on file. Encounter Status:Closed by KAMERON BERNADRO CNP on 03/24/18 Normal [facility] PROGRESSon 03-24-2018 PROGRESS HNO ID: [id number] Author: Kameron (Lisa) Charli Service: (none) Author [...] Slight improvement with compression from socks. Intensity: 07/29 Injury: No Previous ankle injury: No Previous [...] be determined by imaging studies Kameron Bernardo APRN.LISA Prescription instructions reviewed with patient as applicable. Potential red flag symptoms discussed with the patient. Reviewed appropriate action plan to take if red flag symptoms occur. Patient agreeable to treatment plan. Kameron Bernardo APRN.LISA Normal [facility] Office Visit: postop surgery 12/19/16on 02-05-2017 Dietary management education, guidance, and counseling (procedure) yes Invalid Interpretation Code [facility] Work Phone: [phone] Documentation of current medications (procedure) Done Invalid Interpretation Code [facility] Work Phone: [phone] Fall risk assessment No Invalid Interpretation Code [facility] Work Phone: [phone] Tobacco smoking status NHIS Never Invalid Interpretation Code [facility] Work Phone: [phone] Tobacco use CPHS Never smoker Invalid Interpretation Code [facility] Work Phone: [phone] Microbiology: Acid Fast Bact Cult/Smon 05-16-2016 AFBCS . Invalid Interpretation Code [facility] Work Phone: [phone] Replaced Document: (P) Kem s Stainon 05-09-2016 FUNST . Invalid Interpretation Code [facility] Work Phone: [phone] Lab Report: Basic Metabolic Profile (BMP)on 04-05-2016 Anion gap 4 mmol/L Low 5-15 [facility] Work Phone: [phone] BUN/Creatinine Ratio 18.3 RATIO Invalid Interpretation Code 10-20 [facility] Work Phone: [phone] Calcium 9.4 mg/dL Invalid Interpretation Code 8.5-10.1 [facility] Work Phone: [phone] Chloride 103 mmol/L Invalid Interpretation Code 98-107 [facility] Work Phone: [phone] CO2 29.0 mmol/L Invalid Interpretation Code 21.0-32.0 [facility] Work Phone: [phone] Creatinine 0.77 mg/dL Invalid Interpretation Code 0.55-1.02 [facility] Work Phone: [phone] Creatinine 49.70 mL/min Invalid Interpretation Code [facility] Work Phone: [phone] eGFR (non-black) 79 mL/min/{1.73_m2} Invalid Interpretation Code >60 [facility] Work Phone: [phone] eGFR (non-black) 96 mL/min/{1.73_m2} Invalid Interpretation Code >60 [facility] Work [phone] Glucose mass conc 125 mg/dL High 70-110 [facility] Work Phone: [phone] Potassium molar conc 4.2 mmol/L Invalid Interpretation Code 3.5-5.1 [facility] Work Phone: [phone] Sodium 136 mmol/L Invalid Interpretation Code 136-145 [facility] Work Phone: [phone] Urea nitrogen 14 mg/dL Invalid Interpretation Code 7-18 [facility] Work Phone: [phone] Lab Report: CBC-Complete Blo od Cnt No Diffon 04-05-2016 Erythrocyte distribution width Auto Ratio (RBC) 12.5 % Invalid Interpretation Code 11.6-14.6 [facility] Work [phone] Erythrocytes (RBC) 4.30 10*6/uL Invalid Interpretation Code 4.2-5.4 [facility] Work Phone: [phone] Hematocrit (HCT) 38.8 % Invalid Interpretation Code 37-47 [facility] Work Phone: [phone] Hemoglobin mass conc (Bld) 13.2 g/dL Invalid Interpretation Code 12.0-15.0 [facility] Work Phone: [phone] MCH 30.7 pg Invalid Interpretation Code 27.0-32.0 [facility] Work Phone: [phone] MCHC mass conc (RBC) 34.0 G/GL Invalid Interpretation Code 32-36 [facility] Work Phone: [phone] MCV 90.2 fL Invalid Interpretation Code 81-99 [facility] Work Phone: [phone] Platelets 214 10*3/mm3 Invalid Interpretation Code 150-450 [facility] Work Phone: [phone] PMV by German 10.9 fL Invalid Interpretation Code 6.2-12.0 [facility] Work Phone: [phone] RDW SD 40.9 fL Invalid Interpretation Code 35.1-43.9 [facility] Work Phone: [phone] WBC (Leukocytes) 13.9 10*3/uL High 4.4-11.0 [facility] Work Phone: [phone] Lab Report: CBC W/Diff, Auto matedon 04-03-2016 Absolute Neut 4.5 X10 3/UL Invalid Interpretation Code 2.0-7.7 [facility] Work Phone: [phone] Basophils/100 WBC Auto (Bld) 0.4 % Invalid Interpretation Code 0-1 [facility] Work Phone: [phone] Eosinophils/100 leukocytes 1.2 % Invalid Interpretation Code 0-5 [facility] Work Phone: [phone] Immature granulocytes/100 WBC (Bld) 0.100 % Invalid Interpretation Code 0.0-0.9 [facility] Work Phone: [phone] Lymphocytes 2.60 X10 3/UL Invalid Interpretation Code 0.83-4.51 [facility] Work Phone: [phone] Lymphocytes/100 leukocytes 32.4 % Invalid Interpretation Code 19-41 [facility] Work Phone: [phone] Monocytes/100 leukocytes 9.4 % Invalid Interpretation Code 0-10 [facility] Work Phone: [phone] Neutrophils/100 WBC Auto (Bld) 56.5 % Invalid Interpretation Code 47-70 [facility] Work Phone: [phone] Lab Report: Prealbuminon Prealbumin 19.3 mg/dL Low 20.0-40.0 [facility] Work Phone: [phone] Vital Signs Date Time Vital Sign Value Performing Clinician Faci lity 01-31-2025 08:05-0400 Body height 167.[address] Eboni Katz MD Work Phone: [facility] 01-31-2025 08:05-0400 Body mass index (BMI) [Ratio] 31.8 kg/m2 Dr. Eboni Katz MD Work Phone: [facility] 01-31-2025 08:05-0400 Body temperature 97.1 [degF] Dr. Eboni Katz MD Work Phone: [facility] 01-31-2025 08:05-0400 Body weight 89.[address] Eboni Katz MD Work Phone: [facility] 01-31-2025 08:05-0400 Diastolic blood pressure 70 mm[Hg] Dr. Eboni Katz MD Work Phone: [facility] 01-31-2025 08:05-0400 Heart rate 72 /min Dr. Eboni Katz MD Work Phone: [facility] 01-31-2025 08:05-0400 Respiratory rate 14 /min Dr. Eboni Katz MD Work Phone: [facility] 01-31-2025 08:05-0400 SaO2% (BldA) [Mass fraction] 95 % Dr. Eboni Katz MD Work Phone: [facility] 01-31-2025 08:05-0400 Systolic blood pressure 112 mm[Hg] Dr. Eboni Katz MD Work Phone: [facility] 12-27-2024 10:58-0400 Body height 167.[address] Eboni Katz MD Work Phone: [facility] 12-27-2024 10:58-0400 Body mass index (BMI) [Ratio] 32 kg/m2 Dr. Eboni Katz MD Work Phone: [facility] 12-27-2024 10:58-0400 Body temperature 98.3 [degF] Dr. Eboni Katz MD Work Phone: [facility] 12-27-2024 10:58-0400 Body weight 90.[address] Eboni Katz MD Work Phone: [facility] 12-27-2024 10:58-0400 Diastolic blood pressure 77 mm[Hg] Dr. Eboni Katz MD Work Phone: [facility] 12-27-2024 10:58-0400 Heart rate 63 /min Dr. Eboni Katz MD Work Phone: [facility] 12-27-2024 10:58-0400 Respiratory rate 16 /min Dr. Eboni Katz MD Work Phone: [facility] 12-27-2024 10:58-0400 SaO2% (BldA) [Mass fraction] 98 % Dr. Eboni Katz MD Work Phone: [facility] 12-27-2024 10:58-0400 Systolic blood pressure 131 mm[Hg] Dr. Eboni Katz MD Work Phone: [facility] 12-17-2024 08:15-0400 Body temperature 97.1 [degF] Dr. Eboni Katz MD Work Phone: [facility] 12-17-2024 08:15-0400 Diastolic blood pressure 65 mm[Hg] Dr. Eboni Katz MD Work Phone: [facility] 12-17-2024 08:15-0400 Heart rate 60 /min Dr. Eboni Katz MD Work Phone: [facility] 12-17-2024 08:15-0400 Respiratory rate 18 /min Dr. Eboni Katz MD Work Phone: [facility] 12-17-2024 08:15-0400 SaO2% (BldA) [Mass fraction] 100 % Dr. Eboni Katz MD Work Phone: [facility] 12-17-2024 08:15-0400 Systolic blood pressure 108 mm[Hg] Dr. Eboni Katz MD Work Phone: [facility] 12-17-2024 06:25-0400 Body height 167.[address] Eboni Katz MD Work Phone: [facility] 12-17-2024 06:25-0400 Body mass index (BMI) [Ratio] 31.6 kg/m2 Dr. Eboni Katz MD Work Phone: [facility] 12-17-2024 06:25-0400 Body weight 88.[address] Eboni Katz MD Work Phone: [facility] 10-27-2024 09:41-0400 Body height 167.[address] Eboni Katz MD Work Phone: [facility] 10-27-2024 09:41-0400 Body mass index (BMI) [Ratio] 32.5 kg/m2 Dr. Eboni Katz MD Work Phone: [facility] 10-27-2024 09:41-0400 Body temperature 97.5 [degF] Dr. Eboni Katz MD Work Phone: [facility] 10-27-2024 09:41-0400 Body weight 91.[address] Eboni Katz MD Work Phone: [facility] 10-27-2024 09:41-0400 Diastolic blood pressure 66 mm[Hg] Dr. Eboni Katz MD Work Phone: [facility] 10-27-2024 09:41-0400 Heart rate 66 /min Dr. Eboni Katz MD Work Phone: [facility] 10-27-2024 09:41-0400 Respiratory rate 16 /min Dr. Eboni Katz MD Work Phone: [facility] 10-27-2024 09:41-0400 SaO2% (BldA) [Mass fraction] 95 % Dr. Eboni Katz MD Work Phone: [facility] 10-27-2024 09:41-0400 Systolic blood pressure 112 mm[Hg] Dr. Eboni Katz MD Work Phone: [facility] 07-26-2024 09:08-0400 Body mass index (BMI) [Ratio] 34.3 kg/m2 Dr. Eboni Katz MD Work Phone: [facility] 07-26-2024 09:08-0400 Body temperature 98.2 [degF] Dr. Eboni Katz MD Work Phone: [facility] 07-26-2024 09:08-0400 Body weight 96.[address] Eboni Katz MD Work Phone: [facility] 07-26-2024 09:08-0400 Diastolic blood pressure 68 mm[Hg] Dr. Eboni Katz MD Work Phone: [facility] 07-26-2024 09:08-0400 Heart rate 72 /min Dr. Eboni Katz MD Work Phone: [facility] 07-26-2024 09:08-0400 Respiratory rate 18 /min Dr. Eboni Katz MD Work Phone: [facility] 07-26-2024 09:08-0400 SaO2% (BldA) [Mass fraction] 96 % Dr. Eboni Katz MD Work Phone: [facility] 07-26-2024 09:08-0400 Systolic blood pressure 124 mm[Hg] Dr. Eboni Katz MD Work Phone: [facility] 05-21-2023 10:26-0500 Body temperature 97.2 [degF] Dr. Eboni Katz Work Phone: [facility] 05-21-2023 10:26-0500 Diastolic blood pressure 64 mm[Hg] Dr. Eboni Katz Work Phone: [facility] 01-31-2024 10:26-0500 Heart rate 80 /min Dr. Eboni Katz Work Phone: [facility] 05-21-2023 10:26-0500 Respiratory rate 16 /min Dr. Eboni Katz Work Phone: [facility] 05-21-2023 10:26-0500 SaO2% (BldA) [Mass fraction] 98 % Dr. Eboni Katz Work Phone: [facility] 05-21-2023 10:26-0500 Systolic blood pressure 136 mm[Hg] Dr. Eboni Katz Work Phone: [facility] 05-21-2023 07:37-0500 Body height 167.[address] Eboni Katz Work Phone: [facility] 05-21-2023 07:37-0500 Body mass index (BMI) [Ratio] 33.4 kg/m2 Dr. Eboni Katz Work Phone: [facility] 05-21-2023 07:37-0500 Body weight [address] Eboni Katz Work Phone: [facility] 05-14-2023 08:03-0500 Body height 167.[address] Eboni Katz Work Phone: [facility] 05-14-2023 08:03-0500 Body mass index (BMI) [Ratio] 33.7 kg/m2 Dr. Eboni Katz Work Phone: [facility] 05-14-2023 08:03-0500 Body temperature 98.4 [degF] Dr. Eboni Katz Work Phone: [facility] 05-14-2023 08:03-0500 Body weight 94.[address] Eboni Katz Work Phone: [facility] 05-14-2023 08:03-0500 Diastolic blood pressure 70 mm[Hg] Dr. Eboni Katz Work Phone: [facility] 05-14-2023 08:03-0500 Heart rate 77 /min Dr. Eboni Katz Work Phone: [facility] 05-14-2023 08:03-0500 Respiratory rate 16 /min Dr. Eboni Katz Work Phone: [facility] 05-14-2023 08:03-0500 SaO2% (BldA) [Mass fraction] 98 % Dr. Eboni Katz Work Phone: [facility] 05-14-2023 08:03-0500 Systolic blood pressure 124 mm[Hg] Dr. Eboni Katz Work Phone: [facility] 05-02-2023 06:51-0500 Body mass index (BMI) [Ratio] 33.7 kg/m2 Dr. Eboni Katz Work Phone: [facility] 05-02-2023 06:51-0500 Body temperature 97.6 [degF] Dr. Eboni Katz Work Phone: [facility] 05-02-2023 06:51-0500 Body weight 94.[address] Eboni Katz Work Phone: [facility] 05-02-2023 06:51-0500 Diastolic blood pressure 62 mm[Hg] Dr. Eboni Katz Work Phone: [facility] 05-02-2023 06:51-0500 Heart rate 70 /min Dr. Eboni Katz Work Phone: [facility] 05-02-2023 06:51-0500 Respiratory rate 16 /min Dr. Eboni Katz Work Phone: [facility] 05-02-2023 06:51-0500 SaO2% (BldA) [Mass fraction] 97 % Dr. Eboni Katz Work Phone: [facility] 05-02-2023 06:51-0500 Systolic blood pressure 150 mm[Hg] Dr. Eboni Katz Work Phone: [facility] 02-10-2023 08:06-0400 Body height 167.[address] Eboni Katz Work Phone: [facility] 02-10-2023 08:06-0400 Body mass index (BMI) [Ratio] 33.4 kg/m2 Dr. Eboni Katz Work Phone: [facility] 02-10-2023 08:06-0400 Body weight 93.[address] Eboni Katz Work Phone: [facility] 02-10-2023 08:06-0400 Diastolic blood pressure 70 mm[Hg] Dr. Eboni Katz Work Phone: [facility] 02-10-2023 08:06-0400 Heart rate 50 /min Dr. Eboni Katz Work Phone: [facility] 02-10-2023 08:06-0400 Respiratory rate 16 /min Dr. Eboni Katz Work Phone: [facility] 02-10-2023 08:06-0400 SaO2% (BldA) [Mass fraction] 99 % Dr. Eboni Katz Work Phone: [facility] 02-10-2023 08:06-0400 Systolic blood pressure 130 mm[Hg] Dr. Eboni Katz Work Phone: [facility] 10-07-2022 08:00-0400 Body height 167.[address] Eboni Katz Work Phone: [facility] 10-07-2022 08:00-0400 Body mass index (BMI) [Ratio] 34.7 kg/m2 Dr. Eboni Katz Work Phone: [facility] 10-07-2022 08:00-0400 Body temperature 96.3 [degF] Dr. Eboni Katz Work Phone: [facility] 10-07-2022 08:00-0400 Body weight 97.[address] Eboni Katz Work Phone: [facility] 10-07-2022 08:00-0400 Diastolic blood pressure 76 mm[Hg] Dr. Eboni Katz Work Phone: [facility] 10-07-2022 08:00-0400 Heart rate 65 /min Dr. Eboni Katz Work Phone: [facility] 10-07-2022 08:00-0400 Respiratory rate 18 /min Dr. Eboni Katz Work Phone: [facility] 10-07-2022 08:00-0400 SaO2% (BldA) [Mass fraction] 99 % Dr. Eboni Katz Work Phone: [facility] 10-07-2022 08:00-0400 Systolic blood pressure 136 mm[Hg] Dr. Eboni Katz Work Phone: [facility] 08-23-2022 09:45-0400 Body temperature 97.3 [degF] Dr. Eboni Katz Work Phone: [facility] 08-23-2022 09:45-0400 Diastolic blood pressure 64 mm[Hg] Dr. Eboni Katz Work Phone: [facility] 08-23-2022 09:45-0400 Heart rate 70 /min Dr. Eboni Katz Work Phone: [facility] 08-23-2022 09:45-0400 Respiratory rate 16 /min Dr. Eboni Katz Work Phone: [facility] 08-23-2022 09:45-0400 SaO2% (BldA) [Mass fraction] 98 % Dr. Eboni Katz Work Phone: [facility] 08-23-2022 09:45-0400 Systolic blood pressure 110 mm[Hg] Dr. Eboni Katz Work Phone: [facility] 08-23-2022 08:10-0400 Body height 167.[address] Eboni Katz Work Phone: [facility] 08-23-2022 08:10-0400 Body mass index (BMI) [Ratio] 34.3 kg/m2 Dr. Eboni Katz Work Phone: [facility] 08-23-2022 08:10-0400 Body weight 96.[address] Eboni Katz Work Phone: [facility] 07-05-2022 08:24-0400 Body mass index (BMI) [Ratio] 35.1 kg/m2 Dr. Eboni Katz Work Phone: [facility] 07-05-2022 08:24-0400 Body temperature 96.4 [degF] Dr. Eboni Katz Work Phone: [facility] 07-05-2022 08:24-0400 Body weight 98.[address] Eboni Katz Work Phone: [facility] 07-05-2022 08:24-0400 Diastolic blood pressure 66 mm[Hg] Dr. Eboni Katz Work Phone: [facility] 07-05-2022 08:24-0400 Heart rate 76 /min Dr. Eboni Katz Work Phone: [facility] 07-05-2022 08:24-0400 Respiratory rate 18 /min Dr. Eboni Katz Work Phone: [facility] 07-05-2022 08:24-0400 SaO2% (BldA) [Mass fraction] 96 % Dr. Eboni Katz Work Phone: [facility] 07-05-2022 08:24-0400 Systolic blood pressure 142 mm[Hg] Dr. Eboni Katz Work Phone: [facility] 06-21-2022 10:41-0500 Body mass index (BMI) [Ratio] 33.9 kg/m2 Dr. Eboni Katz Work Phone: [facility] 06-21-2022 10:41-0500 Body weight 95.[address] Eboni Katz Work Phone: [facility] 09-18-2021 07:54-0400 Body height 167.[address] Eboni Katz Work Phone: [facility] Work Phone: 09-18-2021 07:54-0400 Body mass index (BMI) [Ratio] 34.9 kg/m2 Dr. Eboni Katz Work Phone: [facility] Work Phone: 09-18-2021 07:54-0400 Body temperature 97.2 [degF] Dr. Eboni Katz Work Phone: [facility] Work Phone: 09-18-2021 07:54-0400 Body weight 98.[address] Eboni Katz Work Phone: [facility] Work Phone: 09-18-2021 07:54-0400 Diastolic blood pressure 72 mm[Hg] Dr. Eboni Katz Work Phone: [facility] Work Phone: 09-18-2021 07:54-0400 Heart rate 76 /min Dr. Eboni Katz Work Phone: [facility] Work Phone: 09-18-2021 07:54-0400 Respiratory rate 18 /min Dr. Eboni Katz Work Phone: [facility] Work Phone: 09-18-2021 07:54-0400 SaO2% (BldA) [Mass fraction] 99 % Dr. Eboni Katz Work Phone: [facility] Work Phone: 09-18-2021 07:54-0400 Systolic blood pressure 148 mm[Hg] Dr. Eboni Katz Work Phone: [facility] Work Phone: 09-14-2021 08:18-0400 Body mass index (BMI) [Ratio] 34.8 kg/m2 Dr. Eboni Katz Work Phone: [facility] Work Phone: 09-14-2021 08:18-0400 Body weight 97.[address] Eboni Katz Work Phone: [facility] Work Phone: 09-14-2021 08:18-0400 Diastolic blood pressure 72 mm[Hg] Dr. Eboni Katz Work Phone: [facility] Work Phone: 09-14-2021 08:18-0400 Systolic blood pressure 150 mm[Hg] Dr. Eboni Katz Work Phone: [facility] Work Phone: 09-03-2021 08:51-0400 Body height 167.[address] Eboni Katz Work Phone: [facility] Work Phone: 09-03-2021 08:51-0400 Body mass index (BMI) [Ratio] 34.7 kg/m2 Dr. Eboni Katz Work Phone: [facility] Work Phone: 09-03-2021 08:51-0400 Body temperature 96.3 [degF] Dr. Eboni Katz Work Phone: [facility] Work Phone: 09-03-2021 08:51-0400 Body weight 97.[address] Eboni Katz Work Phone: [facility] Work Phone: 09-03-2021 08:51-0400 Diastolic blood pressure 70 mm[Hg] Dr. Eboni Katz Work Phone: [facility] Work Phone: 09-03-2021 08:51-0400 Heart rate 79 /min Dr. Eboni Katz Work Phone: [facility] Work Phone: 09-03-2021 08:51-0400 Respiratory rate 16 /min Dr. Eboni Katz Work Phone: [facility] Work Phone: 09-03-2021 08:51-0400 SaO2% (BldA) [Mass fraction] 98 % Dr. Eboni Katz Work Phone: [facility] Work Phone: 09-03-2021 08:51-0400 Systolic blood pressure 142 mm[Hg] Dr. Eboni Katz Work Phone: [facility] Work Phone: 08-08-2021 08:38-0400 Body height 167.[address] Eboni Katz Work Phone: [facility] Work Phone: 08-08-2021 08:38-0400 Body mass index (BMI) [Ratio] 34.7 kg/m2 Dr. Eboni Katz Work Phone: [facility] Work Phone: 08-08-2021 08:38-0400 Body temperature 97.6 [degF] Dr. Eboni Katz Work Phone: [facility] Work Phone: 08-08-2021 08:38-0400 Body weight 97.[address] Eboni Katz Work Phone: [facility] Work Phone: 08-08-2021 08:38-0400 Diastolic blood pressure 60 mm[Hg] Dr. Eboni Katz Work Phone: [facility] Work Phone: 08-08-2021 08:38-0400 Heart rate 71 /min Dr. Eboni Katz Work Phone: [facility] Work Phone: 08-08-2021 08:38-0400 Respiratory rate 14 /min Dr. Eboni Katz Work Phone: [facility] Work Phone: 08-08-2021 08:38-0400 SaO2% (BldA) [Mass fraction] 98 % Dr. Eboni Katz Work Phone: [facility] Work Phone: 08-08-2021 08:38-0400 Systolic blood pressure 120 mm[Hg] Dr. Eboni Katz Work Phone: [facility] Work Phone: 02-05-2017 08:08-0400 BMI (Body Mass Index) 31.19 kg/m2 Brennen Hopper MD [facility] Work Phone: 02-05-2017 08:08-0400 Body Temperature 96.7 [degF] Brennen Hopper MD [facility] Work Phone: 02-05-2017 08:08-0400 BP Diastolic 80 mm[Hg] Brennen Hopper MD [facility] Work Phone: 02-05-2017 08:08-0400 BP Systolic 132 mm[Hg] rBennen Hopper MD [facility] Work Phone: 02-05-2017 08:08-0400 BSA (Body Surface Area) 2.09 m2 Brennen Hopper MD [facility] Work Phone: 02-05-2017 08:08-0400 Height 173.99 cm Brennen Hopper MD [facility] Work Phone: 02-05-2017 08:08-0400 Pulse (Heart Rate) 79 /min Brennen Hopper MD [facility] Work Phone: 02-05-2017 08:08-0400 Respiratory Rate 16 /min Brennen Hopper MD [facility] Work Phone: 02-05-2017 08:08-0400 Weight 94.44 kg Brennen Hopper MD [facility] Work Phone: Encounters Encounter Date Encounter Type Care Provider Facility Start: 03-09-2025 ambulatory Eboni Nievesi ty:[facility] Start: 02-28-2025 End: 02-28-2025 ambulatory [facility] Facility:[facility] Start: 01-31-2025 End: 01-31-[address] Eboni Katz MD -[facility] Work Phone: Start: 01-31-2025 End: 01-31-[address] Eboni Katz MD Work Phone: -[facility] Start: 01-07-2025 End: 01-07-2025 Patient encounter procedure Ruby DRUMMOND -[facility] Work Phone: Start: 01-07-2025 End: 01-07-[address] Eboni Katz MD Work Phone: -[facility] Start: 12-27-[address] Favio Saha MD -[facility] Start: 12-27-2024 End: 12-27-2024 Patient encounter procedure Rachelle MCKEON -[facility] Work Phone: Start: 12-27-2024 End: 12-27-[address] Eboni Katz MD Work Phone: -[facility] Start: 12-17-2024 ambulatory Moustapha Stanley Facility [facility] Start: 12-17-2024 Non-patient / Non-visit Moustapha Stanley DO -[facility] Start: 12-17-2024 End: 12-17-2024 Admission to same day surgery center Moustapha Stanley DO -Endoscopy Work Phone: Start: 12-17-2024 End: 12-17-[address] Eboni Katz MD Work Phone: -Endoscopy Start: 11-23-2024 ambulatory Eboni Cabral ty:[facility] Start: 11-23-2024 Non-patient / Non-visit Dr. Arnoldo Phelps MD -[facility] [place] Start: 11-23-2024 End: 11-23-[address] Eboni Katz MD Work Phone: -Cardiovascular Services Start: 11-23-2024 End: 11-23-[address] Eboni Katz MD -Cardiovascular Services Work Phone: Start: 11-23-2024 End: 11-23-2024 ambulatory Eboni Katz Facility:[facility] Start: 11-01-2024 End: 11-01-[address] Eboni Katz MD Work Phone: -Laboratory Specimen Start: 11-01-2024 End: 11-01-2024 Patient encounter procedure Ruby DRUMMOND -Laboratory Specimen Work Phone: Start: 11-01-2024 End: 11-01-2024 ambulatory Ruby Parekh Facility:[facility] Start: 10-28-2024 End: 10-28-2024 Patient encounter procedure Ruby DRUMMOND -[facility] Work Phone: Start: 10-28-2024 End: 10-28-[address] Eboni Katz MD Work Phone: -[facility] Start: 10-27-2024 End: 10-27-[address] Eboni Katz MD -[facility] Work Phone: Start: 10-27-2024 End: 10-27-[address] Eboni Katz MD Work Phone: -[facility] Start: 10-27-2024 End: 10-27-2024 [facility] Start: 10-19-2024 Non-patient / Non-visit Dr. Seth Villatoro MD -[facility] Work Phone: Start: 07-26-2024 End: 07-26-[address] Eboni Katz MD -[facility] Work Phone: Start: 07-26-2024 End: 07-26-2024 ambulatory Efewongbe Oleghe Facility:[facility] Start: 06-24-2024 End: 06-24-2024 ambulatory Konstantin Boyceus Facility:[facility] Start: 06-17-2024 End: 06-17-2024 ambulatory [facility] Facility:[facility] Start: 06-11-2024 End: 06-11-2024 ambulatory [facility] Facility:[facility] Start: 06-03-2024 End: 06-03-2024 ambulatory [facility] Facility:[facility] Start: 06-02-2024 End: 06-02-2024 [facility] Start: 04-19-2024 End: 04-19-2024 ambulatory Efewongbe Oleghe Facility:[facility] Start: 04-19-2024 End: 04-19-2024 [facility]ulatory [facility] Start: 03-29-2024 End: 03-29-2024 ambulatory [facility] Start: 03-02-2024 End: 03-02-2024 ambulatory Eboni Katz Facility:[facility] Start: 05-21-2023 Non-patient / Non-visit Dr. Eboni Katz Work Phone: [facility] Start: 05-21-2023 End: 05-21-2023 Admission to same day surgery center Dr. Eboni Katz Work Phone: [facility] Start: 05-21-2023 End: 05-21-[address] Eboni Katz Work Phone: [facility] Work Phone: Start: 05-14-2023 End: 05-14-[address] Eboni Katz Work Phone: [facility] Work Phone: Start: 05-14-2023 End: 05-14-[address] Eboni Katz Work Phone: [facility] Work Phone: Start: 05-02-2023 End: 05-02-[address] Eboni Katz Work Phone: [facility] Work Phone: Start: 04-04-2023 Non-patient / Non-visit Dr. Eboni Katz Work Phone: [facility] Start: 03-28-2023 End: 03-28-[address] Eboni Katz Work Phone: [facility] Work Phone: Start: 03-28-2023 End: 03-28-[address] Eboni Katz Work Phone: [facility] Work Phone: Start: 03-11-2023 End: 03-11-[address] Eboni Katz Work Phone: [facility] Work Phone: Start: 02-10-2023 End: 02-10-[address] Eboni Katz Work Phone: [facility] Work Phone: Start: 10-24-2022 End: 10-24-[address] Eboni Katz Work Phone: [facility] Work Phone: Start: 10-24-2022 End: 10-24-[address] Eboni Katz Work Phone: [facility] Work Phone: Start: 10-07-2022 End: 10-07-2022 Encounter for general adult medical examination without abnormal findings Dr. Eboni Katz Work Phone: [facility] Start: 10-07-2022 End: 10-07-[address] Eboni Katz Work Phone: [facility] Work Phone: Start: 08-23-2022 Non-patient / Non-visit Dr. Eboni Katz Work Phone: [facility] Start: 08-23-2022 End: 08-23-2022 Admission to same day surgery center Dr. Eboni Katz Work Phone: [facility] Start: 08-23-2022 End: 08-23-[address] Eboni Katz Work Phone: [facility] Work Phone: Start: 07-05-2022 End: 07-05-[address] Eboni Katz Work Phone: [facility] Start: 06-21-2022 Non-patient / Non-visit Dr. Eboni Katz Work Phone: [facility] Start: 09-18-2021 End: 09-18-[address] Eboni Katz Work Phone: [facility]-Laboratory, Specimen Start: 09-18-2021 End: 09-18-[address] Eboni Katz Work Phone: [facility] Start: 09-14-2021 End: 09-14-[address] Eboni Katz Work Phone: [facility] Start: 09-03-2021 End: 09-03-[address] Eboni Katz Work Phone: [facility] Start: 08-15-2021 End: 08-15-[address] Eboni Katz Work Phone: [facility] Start: 08-08-2021 End: 08-08-[address] Eboni Katz Work Phone: [facility] Start: 10-06-[address] Eboni Katz Work Phone: [facility] Start: 03-31-2018 Patient encounter procedure KAMERON SANZ [facility] Procedures Date Procedure Procedure Detail Performing Clinician Start: 12-27-[address] Eboni Katz MD Work Phone: Start: 12-17-[address] Sharon Katz MD Work Phone: Start: 11-23-2024 Cardiovascular stres s test using [...] Shiga Toxin EIA Negative TESTING PERFORMED AT [facility]. ORIGINAL REPORT ON FILE IN LAB CONTAINS ADDITIONAL TEST SITE INFORMATION. __ Start: 11-01-2024 Ova&parasites direct smears concentration & id Dr. Eboni Katz MD Work Phone: Start: 10-27-2024 Vitamin D, 25-hydrox y measurement Dr. Eboni Katz MD Work Phone: Comment on above: Vitamin D StatusDefi ciency: <20 ng/mL (50nmol/L)Insufficiency: 20-30 ng/mL (50-75 nmol/L)Sufficiency: 30-100 ng/mL (75-250 nmol/L)Toxicity: >100 ng/mL (>250 nmol/L) Start: 01-01-2024 Measurement of renal function Dr. Eboni Katz MD Work Phone: Comment on above: GFR Calc Start: 06-24-2023 Positron emission to mography with computed tomography Dr. Eboni Katz MD Work Phone: Start: 05-21-[address] Excision of lymph node Dr. [...] Treatment Date Care Activity Detail Author Start: 12-27-2024 [facility] Start: 12-17-2024 Colonoscopy w/biopsy single/multiple COLONOSCOPY AND BIOPSY [facility] Start: 12-17-2024 Egd transoral biopsy single/multiple EGD BIOPSY SINGLE/MULTIPLE [facility] Start: 12-17-2024 Patient discharge [facility] Start: 11-01-2024 Giardia Antigen (MICHELLE) Giardia Antigen (MICHELLE) [facility] Start: 11-01-2024 Ova and Parasites Ova and Parasites [facility] Start: 11-01-2024 Procedure [facility] Start: 11-01-2024 Elastase.pancreatic [Presence] in Stool [facility] Start: 11-01-2024 Protein measurement [facility] Start: 11-01-2024 [facility] Start: 10-27-2024 CBC W Auto Differential panel - Blood [facility] Start: 10-27-2024 Comprehensive metabolic 2000 panel - Serum or Plasma [facility] Start: 10-27-2024 T4 free measurement [facility] Start: 10-27-2024 Thyroid stimulating hormone measurement [facility] Start: 10-27-2024 Vitamin D, 25-hydroxy measurement [facility] Start: 05-21-2023 Patient discharge [facility] Start: 04-04-2023 Patient referral [facility] Work Phone: Start: 10-07-2022 Patient referral [facility] Work Phone: Start: 08-23-2022 Patient discharge [facility] Start: 09-14-2021 Patient referral [facility] Work Phone: Start: 02-05-2017 End: 02-25-2017 Follow Up Appt 6 weeks Follow Up Appt 6 weeks [facility] Work Phone: Start: 01-06-2017 End: 02-25-2017 Follow Up Appt 1 month Follow Up Appt 1 month [facility] Work Phone: Start: 12-25-2016 End: 02-25-2017 Follow up Appt 1 week Follow up Appt 1 week [facility] Work Phone: Start: 12-25-2016 End: 12-25-2016 [facility], [address] [place] [address], [id number] [facility] Work Phone: Start: 12-05-2016 End: 12-25-2016 Follow Up Appt Other Follow Up Appt Other [facility] Work Phone: Start: 07-10-2016 End: 07-12-2016 Follow Up Appt 6 months Follow Up Appt 6 months [facility] Work Phone: Start: 06-26-2016 End: 07-12-2016 Follow Up Appt 2 weeks Follow Up Appt 2 weeks [facility] Work Phone: Start: 06-05-2016 End: 07-12-2016 Follow up Appt 3 weeks Follow up Appt 3 weeks [facility] Work Phone: Start: 05-22-2016 End: 07-12-2016 Follow Up Appt 2 weeks Follow Up Appt 2 weeks [facility] Work Phone: Start: 05-08-2016 End: 05-17-2016 Follow Up Appt 2 weeks Follow Up Appt 2 weeks [facility] Work Phone: Start: 04-24-2016 End: 05-17-2016 Follow Up Appt 2 weeks Follow Up Appt 2 weeks [facility] Work Phone: Start: 04-09-2016 End: 05-17-2016 Follow Up Appt 2 weeks Follow Up Appt 2 weeks [facility] Work Phone: Alanine aminotransfe rase [Enzymatic activity/volume] in Serum or Plasma [facility] Albumin [Mass/volume ] in Serum or Plasma [facility] Alkaline phosphatase [Enzymatic activity/volume] in Serum or Plasma [facility] Anion gap in Serum o r Plasma [facility] Bilirubin, total measurement [facility] BUN/Creatinine ratio [facility] Calcium [Mass/volume ] in Serum or Plasma [facility] Carbon dioxide, tota l [Moles/volume] in Central venous blood [facility] CBC W Auto Different ial panel - Blood [facility] Clostridioides diffi cile DNA [Presence] in Unspecified specimen by ELIZABETH with probe detection [facility] Colonoscopy [facility] Creatinine [Mass/vol ume] in Serum or Plasma [facility] Elastase.pancreatic [Presence] in Stool [facility] Erythrocyte mean corpuscular volume determination [facility] Giardia lamblia anti gen assay [facility] Glucose [Mass/volume ] in Serum or Plasma [facility] Hematocrit [Volume Fraction] of Blood [facility] Hemoglobin [Mass/vol ume] in Blood [facility] Hemoglobin A1c/Hemoglobin.total in Blood [facility] Hemoglobin A1c/Hemoglobin.total in Blood [facility] Lactate dehydrogenas e measurement [facility] Leukocytes [#/volume ] in Blood [facility] Lipid 1996 panel - S marlene or Plasma [facility] Mean corpuscular hem oglobin concentration determination [facility] Mean corpuscular hem oglobin determination [facility] Measurement of occul t blood in stool specimen using immunoassay [facility] Measurement of renal function [facility] Neutrophil count [facility] Neutrophil percent differential count [facility] NM Heart Views W str ess and W radionuclide IV [facility] Nucleic acid assay [facility] Ova OR parasites identification [facility] Patient Education [facility] Work Phone: Patient referral [facility] Work Phone: Platelets [#/volume] in Blood [facility] Potassium measurement [facility] Protein measurement [facility] Red blood cell count [facility] Red cell distributio n width determination [facility] Serum chloride measurement [facility] Sodium measurement [facility] Total protein measurement [facility] Urea nitrogen [Mass/ volume] in Serum or Plasma [facility] Immunizations Immunization Date Immunization Notes Care Provider [facility] 01-26-2025 Covid (Spikevax) Dr. Lázaro Katz MD Work Phone: [facility] 01-26-2025 Seasonal, quadrivale nt, recombinant, injectable influenza vaccine, preservative free Dr. Eboni Katz MD Work Phone: [facility] 05-20-2024 Covid (Isac & Isac) Dr. Eboni Katz MD Work Phone: [facility] 05-20-2024 Seasonal trivalent influenza vaccine, adjuvanted, preservative free Dr. Eboni Katz MD Work Phone: [facility] 02-10-2023 RSV Adult Recombinan t (Arexvy) Dr. Eboni Katz MD Work Phone: [facility] 01-27-2023 Covid (Spikevax) Dr. Lázaro Katz Work Phone: [facility] 01-27-2023 Influenza High-Dose Quadrivalent Dr. Eboni Katz Work Phone: [facility] 01-27-2023 influenza, injectabl e, quadrivalent, preservative free Dr. Eboni Katz MD Work Phone: [facility] 01-27-2023 Pfizer Covid-19 (Comirnaty) Dr. Eboni Katz MD Work Phone: [facility] 01-22-2022 Covid Pfizer Bivalen t Booster Dr. Eboni Katz MD Work Phone: [facility] 01-22-2022 influenza, injectabl e, quadrivalent, preservative free Dr. Eboni Katz MD Work Phone: [facility] 04-02-2021 Covid (Pfizer) Dr. Eboni Katz MD Work Phone: [facility] 07-20-2020 Covid (Pfizer) Dr. Eboni Katz Work Phone: [facility] 06-29-2020 Covid (Pfizer) Dr. Eboni Katz Work Phone: [facility] 02-09-2020 influenza, injectabl e, quadrivalent, preservative free Dr. Eboni Katz MD Work Phone: [facility] 02-16-2019 influenza, injectabl e, quadrivalent, preservative free Dr. Eboni Katz Work Phone: [facility] 02-16-2019 influenza, seasonal, injectable Dr. Eboni Katz Work Phone: [facility] 02-16-2019 Fluad 2018- 65yr up(PF)45 mcg(15 mcgx3)/0.5 mL intramuscular syringe (flu vac Dr. Eboni Katz Work Phone: [facility] Work Phone: 02-19-2016 influenza, high dose seasonal, preservative-free Dr. Eboni Katz MD Work Phone: [facility] 02-12-2016 influenza, injectabl e, quadrivalent, preservative free Dr. Eboni Katz Work Phone: [facility] 02-12-2016 influenza, seasonal, injectable Dr. Eboni Katz Work Phone: [facility] 01-19-2015 influenza, injectabl e, quadrivalent, preservative free Dr. Eboni Katz MD Work Phone: [facility] 11-18-2014 pneumococcal polysaccharide vaccine, [address] Eboni Katz MD Work Phone: [facility] 01-19-2014 influenza, injectabl e, quadrivalent, preservative free Dr. Eboni Katz MD Work Phone: [facility] 02-04-[address] bEoni Katz Work Phone: [facility] 03-30-[address] Kentrell Katz Work Phone: [facility] Work Phone: 03-30-2011 pneumococcal vaccine , unspecified formulation Dr. Eboni Katz Work Phone: [facility] 03-03-2008 influenza, injectabl e, quadrivalent, preservative free Dr. Eboni Katz MD Work Phone: [facility] 06-19-2004 TD(adult) unspecifie d formulation Dr. Eboni Katz MD Work Phone: [facility] 06-24-1990 hepatitis B vaccine, adult dosage Dr. Eboni Katz MD Work Phone: [facility] 12-24-1989 hepatitis B vaccine, adult dosage Dr. Eboni Katz MD Work Phone: [facility] 11-19-1989 hepatitis B vaccine, adult dosage Dr. Eboni Katz MD Work Phone: [facility] 02-19-1989 TD(adult) unspecifie d formulation Dr. Eboni Katz MD Work Phone: [facility] Payers Date Payer Category Payer Private Health Insurance [id number] 2023 Self-pay [id number] 2016 Private Health Insurance [id number] 2011 Medicare [id number] Unknown [id number] 2.16.8 [id number] Unknown [id number] 2.16.8 40.1.564607.3.579.2.462 Unknown [id number] 2.16.8 40.1.733396.3.579.2.462 Unknown [id number] 2.16.8 40.1.868158.3.579.2.462 Unknown [id number] 2.16.8 40.1.020347.3.579.2.462 Unknown [id number] 2.16.8 40.1.792237.3.579.2.462 Unknown [id number] 2.16.8 40.1.130260.3.579.2.462 Unknown [id number] 2.16.8 40.1.563007.3.579.2.462 Unknown [id number] 2.16.8 40.1.986468.3.579.2.462 Unknown [id number] 2.16.8 40.1.310942.3.579.2.462 Unknown [id number] 2.16.8 40.1.770254.3.579.2.462 Unknown [id number] 2.16.8 40.1.464659.3.579.2.462 Unknown [id number] 2.16.8 40.1.245578.3.579.2.462 Unknown [id number] 2.16.8 40.1.321691.3.579.2.462 Unknown [id number] 2.16.8 40.1.657345.3.579.2.462 Unknown [id number] 2.16.8 40.1.412404.3.579.2.462 Unknown [id number] 2.16.8 40.1.421728.3.579.2.462 Unknown [id number] 2.16.8 40.1.198935.3.579.2.462 Unknown [id number] 2.16.8 40.1.302663.3.579.2.462 Unknown [id number] 2.16.8 40.1.504941.3.579.2.462 Unknown [id number] 2.16.8 40.1.254497.3.579.2.462 Unknown [id number] 2.16.8 40.1.765712.3.579.2.462 Unknown [id number] 2.16.8 40.1.037172.3.579.2.462 Unknown [id number] 2.16.8 40.1.092374.3.579.2.462 Unknown [id number] 2.16.8 40.1.893415.3.579.2.462 Unknown [id number] 2.16.8 40.1.296914.3.579.2.462 Social History Date Type Detail Facility Start: 08-08-2021 End: 05-14-2023 Tobacco smoking status NHIS Unknown if ever smoked [facility] Start: 08-08-2021 None [facility] Start: 08-08-2021 Homeless [facility] Start: 10-25-2019 Non-smoker [facility] Start: 1945 Sex Assigned At Female [facility] Start: 03-24-2024 End: 12-16-2024 Tobacco smoking status NHIS Never smoked tobacco (finding) [facility] NEGATED: Highlighted row Gimenez [facility] Medical Equipment Procedure Code Equipment Code Equipment Origin al Text Equipment Identifier Dates Excision, lymph node Ligation clip, metallic [id number] FDA Start: 05-21-2023 asymmetric patella FDA Start: [...] Start: 10-25-2019 tibial component FDA Start: 10-25-2019 Pen Needle, Diabetic (Comfort Ez Pen [place]) 29 gauge x 1/2 needle Start: 01-31-2025 Goals Date Patient Goal Desired Activity /State Mental Status Date Assessment Result Facility 12-17-2024 Cognitive function Level Of Cons ciousness Awake;Alert;Appropriate;Follow s Commands [facility] Work Phone: 05-21-2023 Cognitive function Voice/Name [facility] Work Phone: 08-23-2022 Cognitive function Voice/Name [facility] Work Phone: 08-23-2022 Cognitive function Patient Deven tello Person;Place;Time [facility] Work Phone: Clinical Notes 08-23-2022 to 02-28-2025 Note Date & Type Note Facility 02-28-2025 Note [facility] Medical Records Department [address] [place] [address] History Physical Exam 02/28/25 0944 MR#: [id number] Acct: [id number] Name: GEORGIA RO Rep #: [id number] : 1945 79 From: Moustapha Friend PCP: Dr. Eboni Katz MD Status:[facility] Location: [place] [address] HPI - General General Date of Admission: 02/28/25 Date of Service: 02/28/25 Chief Complaint: Gastric ulcer HPI Narrative GEORGIA RO, is a 79 F who presents for surveillance of gastric ulcer [facility] established 02.27.24 with complaints of burning esophageal/epigastric [...] She has not noticed these symptoms being particularly worss than usual. Continues with PPI daily. PCP refilled Carafate however she has not yet started it. EGD 12.17.24- Normal esophagus. - Non-bleeding gastric ulcer with no stigmata of bleeding. Biopsied. - Normal examined duodenum. Colonoscopy Diverticulosis in the recto-sigmoid colon, in the sigmoid colon and in the descending colon. - Segmental moderate inflammation was found in the rectum and in the sigmoid colon secondary to colitis. - Two 8 mm polyps in the cecum, removed with a jumbo cold forceps. Resected and retrieved. OV 9..25 patient here to review results of endoscopy. Patient continues to have nausea after meals. Heartburn is controlled with pantoprazole twice a day. Patient having up to 3 bowel movements per day that are soft And foul-smelling. She has lower abdominal cramping prior to bowel movements, during and after. ] [facility] Medical History Hypertension Encounter for immunization Overactive bladder Colitis Bladder disease Difficulty swallowing History of hiatal hernia Gastric reflux History of stress test Osteopenia PONV (postoperative nausea and vomiting) GI [...] multivitamin with iron 1 tab PO DAILY 03/31/1303/28/24 H istory biotin 2,500 mcg capsule 2,500 mcg PO ONCE 07/15/17 4 History celecoxib 200 mg capsule (Celebrex) 200 mg PO DAILY PRN pain #90 ca ps 09/16/23 03/28/24 Rx hydrochlorothiazide 25 mg tablet See Rx Instructions .Route 5 Unknown Rx .COMPLEX #90 tabs ropinirole 0.5 mg tablet 0.5 mg PO TID #360 tabs 06/28/24 0 12/17/24 Rx losartan 100 mg tablet 100 mg PO DAILY 3 months #90 tabs 09/06/24 12/17/24 Rx oxybutynin chloride 10 mg 10 mg PO QDAY #90 tabs 09/06/24 Un known Rx tablet,extended release 24 hr amlodipine 5 mg tablet 7.5 mg (1.5 x 5 mg) PO DAILY 3 06/1512/17/24 Rx months #135 tabs (more content not included)... [facility] 01-31-2025 Progress note Note Date/Time January 31, 2025 9:10am [facility] [address] [place] [address] [place] [address] OFFICE VISIT Date of Service: 01/31/25 MR#: [id number] Acct: [id number] Name: GEORGIA RO Rep #: [id number] : 1945 Provider: Dr. Don Katz MD Age/Sex: 79/F Location[facility] Status: Signed Intake Vital Signs 10/27/24 09:41 12/27/24 10:58 01/31/25 08:05 Height 5 ft 6 in 5 ft 6 in 5 ft 6 in Weight: 198 lb 8 oz 197 lb BMI 32.0 31.8 BP 131/77 H 112/70 Blood Pressure Location Lt brachial Lt brachial Position Sitting Sitting Respiration 16 14 Pulse 63 72 Pulse Source Monitor Monitor Temp 98.3 F 97.1 F L Temp Source Temporal Pulse Oximetry (%) 98 95 Oxygen Delivery Method room air room air Intake Visit Reasons: 3 M FU Chief Complaint: Follow-up chronic conditions Rn On Site Required: No Accompanied by: Is patient in pain?: No Allergies lisinopril (From Zestril) Adverse Reaction (Intermediate, Verified 01/31/25 07:52) Cough hydrocodone bitartrate (From Vicodin) Adverse Reaction (Mild, Verified 01/31/25 07:52) Itching Medications ?Medication ?Instructions ?Recorded ?Confirmed ?Type multivitamin with iron 1 tab PO DAILY 03/31/1301/19 History biotin 2,500 mcg capsule 2,500 mcg PO ONCE 07/15/17 1 History celecoxib 200 mg capsule (Celebrex) 200 mg PO DAILY [place] N pain #90 caps 09/16/23 01/31/25 Rx hydrochlorothiazide 25 mg tablet See Rx Instructions . Route 06/28/24 01/31/25 Rx .COMPLEX #90 tabs ropinirole 0.5 mg tablet 0.5 mg PO TID #360 tabs 06/1901/31/25 Rx losartan 100 mg tablet 100 mg PO DAILY 3 months #90 tabs 09/06/24 01/31/25 Rx oxybutynin chloride 10 mg 10 mg PO QDAY #90 tabs 09/0601/31/25 Rx tablet,extended release 24 hr amlodipine 5 mg tablet 7.5 mg (1.5 x 5 mg) PO DAILY 3 09/20/24 01/31/25 Rx months #135 tabs aspirin 81 mg tablet 81 mg PO QDAY 10/27/2401/31 History pantoprazole 40 mg tablet,delayed 40 mg PO BID #180 ta bs 10/27/24 01/31/25 Rx release metformin 500 mg tablet,extended 500 mg PO BID #90 tab s 01/03/25 01/31/25 Rx release 24 hr budesonide 3 mg 9 mg (3 x 3 mg) PO QAM 8 wee ks 01/07/25 01/31/25 Rx capsule,delayed,extended release #168 ea ondansetron 4 mg disintegrating 4 mg PO Q8H #20 tabs 0 01/07/25 01/31/25 Rx tablet sucralfate 1 gram tablet 1 g PO BID #60 tabs 01/10/25 01/31/25 Rx potassium chloride 20 mEq 20 meq PO BID #180 tabs 01/1901/31/25 Rx tablet,extended release tirzepatide (weight loss) 2.5 2.5 mg (0.5 mL) subcut Q WEEK #2 mL 01/31/25 01/31/25 Rx mg/0.5 mL subcutaneous pen injector (Zepbound) Have you fallen in the past year?: No Nurse's Note: Pt would like to discuss weight loss option ideal goal weight is 150-160. Pt rhodes shad no success w/ diet and excercise. Pt needs K+ refilled PFSH Medical History (Updated 01/31/25 @ 09:[address] Eboni Katz MD) Encounter for immunization Overactive bladder Colitis Bladder disease Difficulty swallowing History of hiatal [...] hypertension Generalized osteoarthritis Surgical History History of surgical removal of skin lesion [...] FREQUENTLY HPI HPI Chief Complaint: Follow-up chronic conditions Details: GEORGIA RO, is a 79-year-old female with a history of GERD, colitis, HTN, and DM, presenting for follow-up on GERD symptoms and weight management. The patient reports persistent burning sensation in the upper GI tract, which has worsened despite taking Protonix and Carafate for the past few weeks. She was also prescribed budesonide for colitis, but it has not alleviated the burning sensation. She denies melena and diarrhea. She has a history of softer stools with a foul smell, and a biopsy was concerning for colitis. The patient expresses interest in weight management and has previously tried Ozempic, but it was not covered by insurance. She would like to try Zepbound. Denies any personal or family history of pancreatitis, pancreatic or thyroid cancer. She is currently taking amlodipine 7.5 mg daily, losartan 100 mg daily, metformin, oxybutynin, and hydrochlorothiazide. No concerning side effects withthese medications or conditions. She received both flu and COVID-19 vaccinations on the 8th. ROS Const Constitutional: No body ache, chills, excessive sweating, fatigue, fever(s), frequent falls, headache(s), snoring, weakness, sleep problems or change in appetite Eyes Eyes: No blurry vision, change in vision, floaters, visual disturbances, eye pain or Light sensitivity ENT ENT: No abnormal hearing, ear or mastoid pain, tinnitus, balance problems, nosebleed/epistaxis, nasal congestion, headache(s), neck pain or sore throat Resp Respiratory: No cough, excessive phlegm production, pain on inspiration, shortness of breath, snoring or wheezing Cardio Cardiology: No chest pain at rest, chest pain with exertion, excessive sweating,shortness of breath, dyspnea on exertion, lightheadedness, orthopnea or palpitations Gastro GI: No abdominal pain, change in bowel habits, constipation, cramping, diarrhea,nausea/dyspepsia or vomiting Genitourinary-Female: No burning urination, painful urination, urinary incontinence, urinary frequency, abnormal vaginal bleeding or pelvic pain Musc Musculoskeletal: No abnormal gait, joint pain, back pain, limited range of motion, neck pain or numbness Skin Skin: No dry skin, redness, excessive hair growth, yellowing of the eye, lesions, itchy eyes, rash or wounds Neuro Neurology: No abnormal gait, abnormal hearing, behavioral changes, unsteady gait/balance, weakness, frequent falls, headache(s), memory loss, numbness or visual disturbances Psych Psychiatric: No anxiety, No behavioral changes, No change in appetite, No depression, No memory loss and No Thoughts of harming yourself/Others Endo Endocrine: No cold intolerance, excessive sweating, fatigue, flushing, heat intolerance, increased thirst/drinking or increased hunger Aller/Imm Allergy/Immunologic: No itchy eyes, seasonal allergy symptoms, hives or wheezing Rodolfo/Lymp Hematologic/Lymphatic: No easy bleeding, easy bruising, enlarged lymph nodes or other Exam Const General: cooperative, comfortable and no acute distress Orientation: alert, awake and oriented x3 HENMT Head: normal to inspection, normocephalic and atraumatic Ears: hearing grossly normal bilaterally Eyes General: appearance normal, both eyes and all related structures Neck Neck: normal visual inspection, full ROM, no lymphadenopathy and supple Neck mass: No Thyroid: thyroid normal Resp Effort & Inspection: normal respiratory effort and able to speak in complete sentences Auscultation: Bilateral: Clear to Auscultation Cardio Rate: regular rate Rhythm: regular rhythm Heart Sounds: S1 normal and S2 normal GI Palpation: soft (Nontender, no palpable organomegaly) Neuro General: patient alert, patient awake, patient oriented x3, moves all extremities and CN's II-XI intact bilaterally Extrem General: pedal edema Psych Appearance: grossly normal Mental Status: mental status grossly normal Mood: congruent mood Affect: normal affect Coding Level of Care Code Off vis,est,level 4 Diagnoses GERD (gastroesophageal reflux disease) K21.9 Colitis K52.9 Obesity (BMI 30-39.9) E66.9 Borderline type 2 diabetes mellitus R73.03 Benign essential hypertension I10 Overactive bladder N32.81 Encounter for immunization Z23 Assessment and Plan Assessment and Plan (1) GERD (gastroesophageal reflux disease): Status: Chronic Plan: Persistent and worsening upper GI burning despite weeks of Protonix BID and Carafate; prior trial of Voquezna not pursued due to cost. - Advised patient to contact gastroenterology to report persistent symptoms and discuss alternative management options. - Discussed Voquezna as a potential next-line therapy if insurance coverage can be obtained. (2) Colitis: Status: Acute Plan: Biopsy confirmed colitis; currently on budesonide with no diarrhea. - Continue budesonide as prescribed. Follow-up with gastroenterology (3) Obesity (BMI 30-39.9): Status: Chronic Plan: BMI 31; prior attempts with Ozempic not covered by insurance; A1c has not exceeded 6.1. - Discussed [employer] qugyib-ye-tpoiniom Zepbound program as an alternative if insurance denies coverage. - Start Zepbound 2.5 mg; prescription sent to [facility] for 4-week supply. - Instructed patient to discontinue metformin if Zepbound is initiated. - Advised against using unverified online sources for weight loss medications. (4) Borderline type 2 diabetes mellitus: Status: Chronic Plan: Plan as above. (5) Benign essential hypertension: Status: Chronic Plan: Blood pressure well controlled at 112/70 on current regimen. - Continue amlodipine 7.5 mg daily, losartan 100 mg daily, and hydrochlorothiazide as prescribed. (6) Overactive bladder: Status: Chronic Plan: Stable on oxybutynin. - Continue oxybutynin as prescribed. (7) Encounter for immunization: Status: Acute Plan: Received her flu and COVID-vaccine in the eighth. This note was generated with [employer] dictation software. It may contain incorrectwords, spelling, and punctuation that were not noted in checking the note beforesigning. Orders: Orders POC A1C Today R73.03 - Prediabetes Medications: New tirzepatide (weight loss) (Zepbound) for 4 weeks 2.5 mg (0.5 mL) subcut QWEEK 2 mL 0RF Refilled potassium chloride ER 20 mEq PO BID 180 tabs 3RF Plan - Discussed patient's ongoing burning sensation and recommended contacting Dr. Stanley to discuss the ineffectiveness of current medications (Protonix and Carafate) and consider alternative treatments. - Discussed the possibility of trying Vaquenza for the burning sensation, notingits effectiveness for patients who have not responded well to other PPIs. - Discussed weight management options, including the potential use of Zepbound. Will send a prescription for Zepbound 2.5 to [facility] for 4 weeks. If insurance does not cover it, will consider [id number] option through [employer]. - Advised patient to discontinue metformin if Zepbound is started, due to potential for increased gastrointestinal side effects. - Encouraged patient to avoid purchasing weight loss medications from unverifiedonline sources due to potential risks and scams. - Confirmed patient received flu and COVID-19 vaccinations on the 8th. - No changes to current medications for blood pressure (amlodipine, losartan, hydrochlorothiazide) and urinary symptoms (oxybutynin). Patient Instructions: - Call Dr. Stanley?s office about your ongoing heartburn. Let them know Protonix and Carafate have not helped and ask about trying a different medication such asVaquenza. - Try Zepbound 2.5 mg for weight management; the prescription has been sent to [facility] for four weeks. If your insurance does not cover it, we will submit it to [employer]?s direct program. - If you start Zepbound, stop taking metformin. - Continue your blood pressure medications as prescribed: amlodipine 7.5 mg daily, losartan 100 mg daily, and hydrochlorothiazide. - Continue taking oxybutynin for urinary symptoms as before. - You received both your flu and COVID vaccines on the 8th. - Let us know if you experience any side effects or concerns with Zepbound or any other medication. Clinical Quality Measures Falls Risk Screening/Assistive Devices Have you fallen in the past year?: No 01/31/25 0910 <Electronically signed by Eboni moon MD> Date _ Eboni Katz MD Cosigner Signature: Date (if applicable) CC: ~ [facility] Work Phone: [phone] [facility] Medicine [address] [place] [address] [place] [address] OFFICE VISIT Date of Service: 01/31/25 MR#: [id number] Acct: [id number] Name: GEORGIA RO Rep #: [id number] : 1945 Provider: Dr. Don Katz MD Age/Sex: 79/F Location: [facility] Status: Signed Intake Vital Signs 10/27/24 09:41 12/27/24 10:58 01/31/25 08:05 Height 5 ft 6 in 5 ft 6 in 5 ft 6 in Weight: 198 lb 8 oz 197 lb BMI 32.0 31.8 BP 131/77 H 112/70 Blood Pressure Location Lt brachial Lt brachial Position Sitting Sitting Respiration 16 14 Pulse 63 72 Pulse Source Monitor Monitor Temp 98.3 F 97.1 F L Temp Source Temporal Pulse Oximetry (%) 98 95 Oxygen Delivery Method room air room air Intake Visit Reasons: 3 M FU Chief Complaint: Follow-up chronic conditions Rn On Site Required: No Accompanied by: Is patient in pain?: No Allergies lisinopril (From Zestril) Adverse Reaction (Intermediate, Verified 01/31/25 07:52) Cough hydrocodone bitartrate (From Vicodin) Adverse Reaction (Mild, Verified 01/31/25 07:52) Itching Medications ?Medication ?Instructions ?Recorded ?Confirmed ?Type multivitamin with iron 1 tab PO DAILY 03/31/1301/19 History biotin 2,500 mcg capsule 2,500 mcg PO ONCE 07/15/17 1 History celecoxib 200 mg capsule (Celebrex) 200 mg PO DAILY [place] N pain #90 caps 09/16/23 01/31/25 Rx hydrochlorothiazide 25 mg tablet See Rx Instructions . Route 06/28/24 01/31/25 Rx .COMPLEX #90 tabs ropinirole 0.5 mg tablet 0.5 mg PO TID #360 tabs 06/1901/31/25 Rx losartan 100 mg tablet 100 mg PO DAILY 3 months #90 tabs 09/06/24 01/31/25 Rx oxybutynin chloride 10 mg 10 mg PO QDAY #90 tabs 09/0601/31/25 Rx tablet,extended release 24 hr amlodipine 5 mg tablet 7.5 mg (1.5 x 5 mg) PO DAILY 3 09/20/24 01/31/25 Rx months #135 tabs aspirin 81 mg tablet 81 mg PO QDAY 10/27/2401/31 History pantoprazole 40 mg tablet,delayed 40 mg PO BID #180 ta bs 10/27/24 01/31/25 Rx release metformin 500 mg tablet,extended 500 mg PO BID #90 tab s 01/03/25 01/31/25 Rx release 24 hr budesonide 3 mg 9 mg (3 x 3 mg) PO QAM 8 wee ks 01/07/25 01/31/25 Rx capsule,delayed,extended release #168 ea ondansetron 4 mg disintegrating 4 mg PO Q8H #20 tabs 0 01/07/25 01/31/25 Rx tablet sucralfate 1 gram tablet 1 g PO BID #60 tabs 01/10/25 01/31/25 Rx potassium chloride 20 mEq 20 meq PO BID #180 tabs 01/1901/31/25 Rx tablet,extended release tirzepatide (weight loss) 2.5 2.5 mg (0.5 mL) subcut Q WEEK #2 mL 01/31/25 01/31/25 Rx mg/0.5 mL subcutaneous pen injector (Zepbound) Have you fallen in the past year?: No Nurse's Note: Pt would like to discuss weight loss option ideal goal weight is 150-160. Pt rhodes shad no success w/ diet and excercise. Pt needs K+ refilled PFSH Medical History (Updated 01/31/25 @ 09:[address] Eboni Katz MD) Encounter for immunization Overactive bladder Colitis Bladder disease Difficulty swallowing History of hiatal [...] hypertension Generalized osteoarthritis Surgical History History of surgical removal of skin lesion [...] FREQUENTLY HPI HPI Chief Complaint: Follow-up chronic conditions Details: GEORGIA RO, is a 79-year-old female with a history of GERD, colitis, HTN, and DM, presenting for follow-up on GERD symptoms and weight management. The patient reports persistent burning sensation in the upper GI tract, which has worsened despite taking Protonix and Carafate for the past few weeks. She was also prescribed budesonide for colitis,but it has not alleviated the burning sensation. She denies melena and diarrhea. She has a history of softer stools with a foul smell, and a biopsy was concerning for colitis. The patient expresses interest in weight management and has previously tried Ozempic, but it was not covered by insurance. She would like to try Zepbound. Denies any personal or family history of pancreatitis, pancreatic or thyroid cancer. She is currently taking amlodipine 7.5 mg daily, losartan 100 mg daily, metformin, oxybutynin, and hydrochlorothiazide. No concerning side effects withthese medications or conditions. She received both flu and COVID-19 vaccinations on the . ROS Const Constitutional: No body ache, chills, excessive sweating, fatigue, fever(s), frequent falls, headache(s), snoring, weakness, sleep problems or change in appetite Eyes Eyes: No blurry vision, change in vision, floaters, visual disturbances, eye pain or Light sensitivity ENT ENT: No abnormal hearing, ear or mastoid pain, tinnitus, balance problems, nosebleed/epistaxis, nasal congestion, headache(s), neck pain or sore throat Resp Respiratory: No cough, excessive phlegm production, pain on inspiration, shortness of breath, snoring or wheezing Cardio Cardiology: No chest pain at rest, chest pain with exertion, excessive sweating,shortness of breath, dyspnea on exertion, lightheadedness, orthopnea or palpitations Gastro GI: No abdominal pain, change in bowel habits, constipation, cramping, diarrhea,nausea/dyspepsia orvomiting Genitourinary-Female: No burning urination, painful urination, urinary incontinence, urinary frequency, abnormal vaginal bleeding or pelvic pain Musc Musculoskeletal: No abnormal gait, joint pain, back pain, limited range of motion, neck pain or numbness Skin Skin: No dry skin, redness, excessive hair growth, yellowing of the eye, lesions, itchy eyes, rash or wounds Neuro Neurology: No abnormal gait, abnormal hearing, behavioral changes, unsteady gait/balance, weakness,frequent falls, headache(s), memory loss, numbness or visual disturbances Psych Psychiatric: No anxiety, No behavioral changes, No change in appetite, No depression, No memory loss and No Thoughts of harming yourself/Others Endo Endocrine: No cold intolerance, excessive sweating, fatigue, flushing, heat intolerance, increased thirst/drinking or increased hunger Aller/Imm Allergy/Immunologic: No itchy eyes, seasonal allergy symptoms, hives or wheezing Rodolfo/Lymp Hematologic/Lymphatic: No easy bleeding, easy bruising, enlarged lymph nodes or other Exam Const General: cooperative, comfortable and no acute distress Orientation: alert, awake and oriented x3 [facility] Head: normal to inspection, normocephalic and atraumatic Ears: hearing grossly normal bilaterally Eyes General: appearance normal, both eyes and all related structures Neck Neck: normal visual inspection, full ROM, no lymphadenopathy and supple Neck mass: No Thyroid: thyroid normal Resp Effort & Inspection: normal respiratory effort and able to speak in complete sentences Auscultation: Bilateral: Clear to Auscultation Cardio Rate: regular rate Rhythm: regular rhythm Heart Sounds: S1 normal and S2 normal GI Palpation: soft (Nontender, no palpable organomegaly) Neuro General: patient alert, patient awake, patient oriented x3, moves all extremities and CN's II-XI intact bilaterally Extrem General: pedal edema Psych Appearance: grossly normal Mental Status: mental status grossly normal Mood: congruent mood Affect: normal affect Coding Level of Care Code Off vis,est,level 4 Diagnoses GERD (gastroesophageal reflux disease) K21.9 Colitis K52.9 Obesity (BMI 30-39.9) E66.9 Borderline type 2 diabetes mellitus R73.03 Benign essential hypertension I10 Overactive bladder N32.81 Encounter for immunization Z23 Assessment and Plan Assessment and Plan (1) GERD (gastroesophageal reflux disease): Status: Chronic Plan: Persistent and worsening upper GI burning despite weeks of Protonix BID and Carafate; prior trial of Voquezna not pursued due to cost. - Advised patient to contact gastroenterology to report persistent symptoms and discuss alternativemanagement options. - Discussed Voquezna as a potential next-line therapy if insurance coverage can be obtained. (2) Colitis: Status: Acute Plan: Biopsy confirmed colitis; currently on budesonide with no diarrhea. - Continue budesonide as prescribed. Follow-up with gastroenterology (3) Obesity (BMI 30-39.9): Status: Chronic Plan: BMI 31; prior attempts with Ozempic not covered by insurance; A1c has not exceeded 6.1. - Discussed [employer] [id number] Zepbound program as an alternative if insurance denies coverage. - Start Zepbound 2.5 mg; prescription sent to [facility] for 4-week supply. - Instructed patient to discontinue metformin if Zepbound is initiated. - Advised against using unverified online sources for weight loss medications. (4) Borderline type 2 diabetes mellitus: Status: Chronic Plan: Plan as above. (5) Benign essential hypertension: Status: Chronic Plan: Blood pressure well controlled at 112/70 on current regimen. - Continue amlodipine 7.5 mg daily, losartan 100 mg daily, and hydrochlorothiazide as prescribed. (6) Overactive bladder: Status: Chronic Plan: Stable on oxybutynin. - Continue oxybutynin as prescribed. (7) Encounter for immunization: Status: Acute Plan: Received her flu and COVID-vaccine in the eighth. This note was generated with [employer] software. It may contain incorrectwords, spelling, and punctuation that were not noted in checking the note beforesigning. Orders: Orders POC A1C Today R73.03 - Prediabetes Medications: New tirzepatide (weight loss) (Zepbound) for 4 weeks 2.5 mg (0.5 mL) subcut QWEEK 2 mL 0RF Refilled potassium chloride ER 20 mEq PO BID 180 tabs 3RF Plan - Discussed patient's ongoing burning sensation and recommended contacting Dr. Stanley to discuss the ineffectiveness of current medications (Protonix and Carafate) and consider alternative treatments. - Discussed the possibility of trying Vaquenza for the burning sensation, notingits effectiveness for patients who have not responded well to other PPIs. - Discussed weight management options, including the potential use of Zepbound. Will send a prescription for Zepbound 2.5 to [facility] for 4 weeks. If insurance does not cover it, will consider [id number] option through [employer]. - Advised patient to discontinue metformin if Zepbound is started, due to potential for increased gastrointestinal side effects. - Encouraged patient to avoid purchasing weight loss medications from unveriITN sources due to potential risks and scams. - Confirmed patient received flu and COVID-19 vaccinations on the . - No changes to current medications for blood pressure (amlodipine, losartan, hydrochlorothiazide) and urinary symptoms (oxybutynin). Patient Instructions: - Call Dr. Stanley?s office about your ongoing heartburn. Let them know Protonix and Carafate have not helped and ask about trying a different medication such asVaquenza. - Try Zepbound 2.5 mg for weight management; the prescription has been sent to [facility] for four weeks. If your insurance does not cover it, we will submit it to [employer]?s direct program. - If you start Zepbound, stop taking metformin. - Continue your blood pressure medications as prescribed: amlodipine 7.5 mg daily, losartan 100 mg daily, and hydrochlorothiazide. - Continue taking oxybutynin for urinary symptoms as before. - You received both your flu and COVID vaccines on the 8th. - Let us know if you experience any side effects or concerns with Zepbound or any other medication. Clinical Quality Measures Falls Risk Screening/Assistive Devices Have you fallen in the past year?: No 01/31/25 0910 sarai OLERAY> Date _ Eboni Lepe Signature: Date (if applicable) CC: ~ [facility] [id number] [facility] [address] [place] [address] OFFICE VISIT Date of Service: 01/07/25 MR#: [id number] Acct: [id number] Name: GEORGIA RO Rep #: [id number] : 1945 Provider: BHANU Muñoz Age/Sex: 79/F Location: [facility] Status: Signed Intake Vital Signs 12/27/24 10:58 Height 5 ft 6 in Weight: 198 lb 8 oz BMI 32.0 BP 131/77 H Blood Pressure Location Lt brachial Position Sitting Respiration 16 Pulse 63 Pulse Source Monitor Temp 98.3 F Pulse Oximetry (%) 98 Oxygen Delivery Method room air Intake Visit Reasons: Procedure F/U/ Abd Pain Chief Complaint: Nausea Allergies lisinopril (From Zestril) Adverse Reaction (Intermediate, Verified 12/27/24 10:57) Cough hydrocodone bitartrate (From Vicodin) Adverse Reaction (Mild, Verified 12/27/24 10:57) Itching Medications ?Medication ?Instructions ?Recorded ?Confirmed ?Type multivitamin with iron 1 tab PO DAILY 03/31/1312/20 History biotin 2,500 mcg capsule 2,500 mcg PO ONCE 07/15/17 0 01/07/25 History celecoxib 200 mg capsule (Celebrex) 200 mg PO DAILY [place] N pain #90 caps 09/16/23 01/07/25 Rx potassium chloride 20 mEq 20 meq PO BID #180 tabs 10/0 11/1101/07/25 Rx tablet,extended release hydrochlorothiazide 25 mg tablet See Rx Instructions . Route 06/28/24 01/07/25 Rx .COMPLEX #90 tabs ropinirole 0.5 mg tablet 0.5 mg PO TID #360 tabs 06/1901/07/25 Rx losartan 100 mg tablet 100 mg PO DAILY 3 months #90 tabs 09/06/24 01/07/25 Rx oxybutynin chloride 10 mg 10 mg PO QDAY #90 tabs 09/0601/07/25 Rx tablet,extended release 24 hr amlodipine 5 mg tablet 7.5 mg (1.5 x 5 mg) PO DAILY 3 09/20/24 01/07/25 Rx months #135 tabs acetaminophen 325 mg tablet 650 mg PO Q4H PRN PRN Pain Or Fever 10/27/24 01/07/25 History aspirin 81 mg tablet 81 mg PO QDAY 10/27/2401/07 History pantoprazole 40 mg tablet,delayed 40 mg PO BID #180 ta bs 10/27/24 01/07/25 Rx release metformin 500 mg tablet,extended 500 mg PO BID #90 tab s 01/03/25 01/07/25 Rx release 24 hr budesonide 3 mg 9 mg (3 x 3 mg) PO QAM 8 wee ks 01/07/25 01/07/25 Rx capsule,delayed,extended release #168 ea ondansetron 4 mg disintegrating 4 mg PO Q8H #20 tabs 0 01/07/25 01/07/25 Rx tablet Have you fallen in the past year?: No PFSH Medical History Bladder disease Difficulty swallowing History of hiatal [...] hypertension Generalized osteoarthritis Surgical History History of surgical removal of skin lesion [...] SUN EXPOSURE: FREQUENTLY HPI HPI Chief Complaint: Nausea Details: GEORGIA RO, is a 79 F who presents to the office today for follow-up. I established 02.27.24 with complaints of burning [...] bm daily. SHe takes Benefiber daily. OV 7..25 Pt with black stools x2 weeks. They are intermittently black. Alternating between soft and normal stools. SHe continue to have lower abd cramping, epigastric pain and nausea. She has not noticed these symptoms being particularly worss than usual. Continues with PPI daily. PCP refilled Carafate however she has not yet started it. EGD 12.17.24- Normal esophagus. - Non-bleeding gastric ulcer with no stigmata of bleeding. Biopsied. - Normal examined duodenum. Colonoscopy Diverticulosis in the recto-sigmoid colon, in the sigmoid colon and in the descending colon. - Segmental moderate inflammation was found in the rectum and in the sigmoid colon secondary to colitis. - Two 8 mm polyps in the cecum, removed with a jumbo cold forceps. Resected and retrieved. OV 9 patient here to review results of endoscopy. Patient continues to have nausea after meals. Heartburn is controlled with pantoprazole twice a day. Patient having up to 3 bowel movements perday that are soft And foul-smelling. She has lower abdominal cramping prior to bowel movements, during and after. ROS Const Constitutional: Positive for weight change (weight loss); No fatigue or fever(s) ENT ENT: Positive for difficulty swallowing Gastro GI: Positive for abdominal pain, constipation, diarrhea, heartburn, difficulty swallowing and nausea/dyspepsia; No belching, bloating, change in bowel habits, change in stool character, coffeeground emesis, cramping, feeling full early, excessive flatus, incontinent of stools, Vomiting blood/hematemesis, Bloodin stool, loose stools, Black,tarry stools, pain with swallowing, vomiting or other Musc Musculoskeletal: Positive for restless legs; No joint pain Skin Skin: No yellowing of the eye or itchy eyes Neuro Neurology: Positive for restless legs and other (vertigo) Psych Psychiatric: No anxiety and No depression Endo Endocrine: Positive for weight change (weight loss); No fatigue Aller/Imm Allergy/Immunologic: No itchy eyes Rodolfo/Lymp Hematologic/Lymphatic: No easy bleeding or easy bruising Exam Const General: cooperative, healthy appearing and comfortable Orientation: alert [facility] Head: normal to inspection Eyes General: appearance normal, both eyes and all related structures Neck Neck: normal visual inspection Chest Chest palpation & inspection: normal inspection of the chest Resp Effort & Inspection: normal respiratory effort Cardio Rate: regular rate Rhythm: regular rhythm GI Inspection: normal to inspection Auscultation: normal bowel sounds Palpation: soft and nontender Assessment and Plan Assessment and Plan (1) GERD (gastroesophageal reflux disease): Status: Chronic Plan: Georgia is a 79-year-old female patient here today for follow-up after upper and lower endoscopy. EGDshowing normal esophagus, gastric ulcer and normal duodenum. Colonoscopy showing 2 polyps, inflammation in the rectum and sigmoid colon. Pathology with hyperplastic and tubular adenomas. Biopsies from the rectum and sigmoid with focal active colitis with comment noting that it may be related to bowel prep, medication or ischemic colitis. Prior to the colonoscopypatient had an elevated calprotectin therefore do not believe the focal active inflammation was prep induced. She does take aspirin daily but no other NSAIDs. She continues to have softer stools that are foul-smelling. Will treat her with a course of budesonide 9 mg daily for 8 weeks. Patient was agreeable. Zofran sent for as needed use. Recommended gastric emptying study for her nausea after meals however she declined at this time. She will continue PPI. - Reviewed results - Continue PPI - Repeat EGD in 3 months to ensure healing of gastric ulcer - Start budesonide 9 mg daily for 8 weeks - Zofran as needed - Follow-up in 3 months (2) Gastric ulcer: Status: Acute (3) Nausea: Status: Acute Medications: New ondansetron 4 mg PO Q8H [address]-ER 9 mg (3 x 3 mg) PO QAM 168 ea 0RF 8 weeks Coding Level of Care Code Off vis,est,level 3 Diagnoses GERD (gastroesophageal reflux disease) K21.9 Gastric ulcer K25.9 Nausea R11.0 Clinical Quality Measures Falls Risk Screening/Assistive Devices Have you fallen in the past year?: No 01/07/25 0800 manfred DRUMMOND> Date _ Ruby DRUMMOND Cosigner Signature: Date (if applicable) CC: ~ [facility]08-29-2025 Consult note [facility] Medical Records Department [address] [place] [address] Anesthesia Postop Eval II 12/17/24 0837 MR#: [id number] Acct: [id number] Name: GEORGIA RO Rep #:[id number] : 1945 79 From: Ger Juarez MD PCP: Dr. Eboni Katz MD Status:R [facility] Y Race: C Location: [facility]02-19 Anesthesia Postop Eval I Sum Postop Eval Completion status Anesthesia document: Postop Eval 1 completed: Yes Anesthesia Postop Eval I Summary Anesthesia Postop Eval I Summary: Anesthesia Postop Eval I: Assessment Summary Airway patent Yes 12/17/24 08:02 [employer] WORKER.ACAR Spontaneous unlabored Yes 12/17/24 08:02 [employer]OUND WORKER.ACAR respirations Mental status Awake 12/17/24 08:02 [employer] WORK[employer].ACAR nausea No 12/17/24 08:02 [employer] WORKER.ACAR Vomiting No 12/17/24 08:02 [employer]IL[employer]IES 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 Anesthesia Postop Eval I: Fluid Summary Crystalloid volume administer 500 12/17/24 08:02 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 GROUND WORKER.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 (ml) Colloids volume administered ( ml) Blood Product volume administered (ml) Total IV fluid infused 500 12/17/24 08:02 UTILITIES GROUND WORKER.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 Anesthesia Postop Eval I: Summary Notes Anesthesia Complication No 12/17/24 08:02 UT[employer]OUND WORKER.ACAR Anesthesia Complication Comment: Post-operative progress note Anesthesia: Postop Eval II Evaluation Mental status: Awake Pain Level: 0 nausea: No Vomiting: No 12/17/2437 MD> Date _ Ger Juarez MD Cosigner Signature: Date CC: ~ Signed [facility]08-29-2025 Consult note Author Ger Juarez [facility] Note Date/Time December 17, 2024 6: 31am [facility] Medical Records Department [address] [place] [address] Pre-Anesthesia Evaluation 12/17/24 0630 MR#: [id number] Acct: [id number] Name: GEORGIA RO Rep #:[id number] : 1945 79 From: Ger Juarez MD PCP: Dr. Eboni Katz MD Status:R EG [facility] Y Race: C Location: [place] [address] ASA Classification* ASA Classification ASA Classification: 2 Assessment & Plan Anesthesia* Anesthesia Assessment Anesthesia Assessment: Discussed sedation and/or anesthesia options, risks, benefits, and alternatives with patient/parents/legal guardian/POA. Questions invited. The patient/parents/legal guardian/POA seems to understand and agrees to proceedwith anesthesia plan. Reviewed the physical assessment, medical history, allergy history and patient home medications list prior to surgery/procedure/anesthetic and documented any changes. Performed airway and anesthesia risk assessments. Anesthesia Type Anesthesia Type: MAC Anesthesia Focused Assessment* Temperature: 97 F Pulse Rate: 69 Blood Pressure: 117/64 Respiratory Rate: 16 Pulse Ox: 100 Airway Assessment Mouth opens: >3 cm Mallampati Score: II Labs Anesthesia Preop lab: CBC WBC 7.2 K/mm3 (4.4-11.0) 10/27/24 10:10 10/27/24 RBC 4.61 M/mm3 (4.2-5.4) 10/27/24 10:10 10/27/24 Hgb 13.7 g/dL (12.0-15.0) 10/27/24 10:10 10/27/24 Hct 41.9 % (37-47) 10/27/24 10:10 10/27/24 Plt Count 233 K/mm3 (150-450) 10/27/24 10:10 10/27/24 CHEMISTRY Potassium 4.8 mmol/L (3.3-5.1) 10/27/24 10:10 10/27/24 Sodium 140 mmol/L (133-145) 10/27/24 10:10 10/27/24 Magnesium 1.7 mg/dL (1.6-2.6) 11/06/18 09:26 11/06/18 BUN 20 mg/dL (4-19) H 10/27/24 10:10 10/27/24 Creatinine 1.13 mg/dL (0.70-1.20) 10/27/24 10:10 10/27/24 Glucose 103 mg/dL (70-99) H 10/27/24 10:10 10/27/24 POC Glucose 136 mg/dL (70-110) H 10/25/19 09:51 10/25/19 TSH 3.280 uIU/mL (0.300-4.200) 10/27/24 10:10 0701/13 COAG PT 14.0 SECONDS (11.7-14.9) 02/24/24 16:40 Pre-Assessment Diagnosis/Proposed Procedure Planned Operative Procedure(s): Colonoscopy,EGD Anesthesia History Anesthesia 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 When Was Last Pacemaker Check QUESTION #4 FULL TEXT: You/Your Family Experience fever (hyperthermia) with Anesthesia Last Oral Intake Last Oral intake: Last Oral Intake NPO since 05:00 12/17/24 06:25 Meds taken in AM with sips of water? 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 - manufacturing millwright: PONV - manufacturing millwright Female Yes 12/16/24 09:08 HX of Motion Sickness No 12/16/24 09:08 HX of N/V After Surgery Yes 12/16/24 09:08 Non-Smoker Yes 12/16/24 09:08 Duration of Surgery greater No 12/16/24 09:08 than 60 minutes Number of Risk Factors 3 12/16/24 09:08 PONV Score Moderate Risk 12/16/24 09:08 Height & Weight Height & Weight: Anesthesia: Height & Weight Height 5 ft 6 in 12/17/24 06:25 Weight: 88.904 kg 12/17/24 06:25 Body Mass Index (BMI) 31.6 12/17/24 06:25 Respiratory Assessment Respiratory Assessment - manufacturing millwright: Respiratory Tract Infection Hx - manufacturing millwright Hx Respiratory Tract Infection No 12/16/24 09:08 STOP Sleep Apnea STOP Sleep Apnea - manufacturing millwright: STOP Sleep Apnea - manufacturing millwright Hx Hypertension Yes: on meds 12/16/24 09:08 [...] Tobacco Use History Tobacco Use History - manufacturing millwright: Tobacco Use History - manufacturing millwright Tobacco Use Smoking Status Never smoker 12/16/24 09:08 Hx Tobacco Use No 12/16/24 09:08 Years Smoking Packs Smoked per Day Smoking Cessation Date was within the last 15 years Hx Smoking Cessation Date Hx Smoking Cessation Counseling Hematologic 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 Specify any problems Hx of Preganancy in last 3 No 12/16/24 09:08 Months Nurse Filling Out Transfusion JZOLLINGE 12/16/24 09:08 & Questions: Date: 12/16/24 12/16/24 09:08 Time: 09:10 12/16/24 09:08 Patient unable to answer at this time (ie. confused, unrespo /Reproduction History /Reproductive History - manufacturing millwright: /Reproductive Hx- manufacturing millwright Hx Now No 12/16/24 09:08 Gestational Age (in weeks): EDC: Hx Hx Para Hx Section SAB No 12/16/24 09:08 Active Medications Active Medications: Current Medications Generic Name Dose Route Start Last Admin Trade Name Freq PRN Reason Stop Dose Admin Lactated Ringer's 1,000 mls @ 15 mls/hr 12/17/24 06:15 IV .Q48H MARIA FERNANDA PFSH Medical History Bladder disease Difficulty swallowing History of hiatal [...] cholesterol Chronic hypertension Generalized osteoarthritis Home Medications ?Medication ?Instructions ?Recorded ?Last Taken ?Type multivitamin with iron 1 tab PO DAILY 03/31/1312/12 History biotin 2,500 mcg capsule 2,500 mcg PO ONCE 07/15/17 1 05/29/23 History celecoxib 200 mg capsule (Celebrex) 200 mg PO DAILY [place] N pain #90 caps 09/16/23 03/28/24 Rx potassium chloride 20 mEq 20 meq PO BID #180 tabs 11/1103/28/24 Rx tablet,extended release hydrochlorothiazide 25 mg tablet See Rx Instructions . Route 06/28/24 Unknown Rx .COMPLEX #90 tabs ropinirole 0.5 mg tablet 0.5 mg PO TID #360 tabs 03/12/17/24 Rx losartan 100 mg tablet 100 mg PO DAILY 3 months #90 tabs 09/06/24 12/17/24 Rx oxybutynin chloride 10 mg 10 mg PO QDAY #90 tabs 09/06 Unknown Rx tablet,extended release 24 hr amlodipine 5 mg tablet 7.5 mg (1.5 x 5 mg) PO DAILY 3 09/20/24 12/17/24 Rx months #135 tabs metformin 500 mg tablet,extended 500 mg PO BID #90 tab s 10/04/24 Unknown Rx release 24 hr acetaminophen 325 mg tablet 650 mg PO Q4H PRN PRN Pain Or Fever 10/27/24 Unknown History aspirin 81 mg tablet 81 mg PO QDAY 10/27/2412/09 History pantoprazole 40 mg tablet,delayed 40 mg PO BID #180 ta bs 10/27/24 12/17/24 Rx release Allergy/AdvReac Type Severity Reaction Status Date / Time lisinopril (From Zestril) AdvReac Intermediate Cough Verified 12/17/24 06:23 hydrocodone bitartrate (From AdvReac Mild Itching Verified 12/17/24 06:23 Vicodin) Family History Father Myocardial infarction Heart disease Hypertension Mother Breast cancer Grandmother Breast cancer Sister Lung cancer Seizures Surgical History History of surgical removal of skin lesion [...] social history: - Manuel SUN EXPOSURE: FREQUENTLY Review of Systems (Anesthesia) ROS Narrative System reviewed and no additional complaints, except as documented. 12/17/24 0631 <Electronically signed by Ger Juarez MD> Date _ Ger Juarez MD Cosigner Signature: Date CC: ~ Signed [facility] Work Phone: [phone]) 482-218108-29-2025 Procedure note [facility] Medical Records Department [address] [place] [address] Colonoscopy Report MR#: [id number] Acct: [id number] Name: GEORGIA RO Rep #:[id number] : 1945 79 From: Moustapha Stanley DO PCP: Dr. Eboni Katz MD Status:R [facility] Patient Name: Georgia Ro Procedure Date: 12/17/2024 7:27 AM Date of : 1945 Age: 79 Procedure: Colonoscopy Indications: Hematochezia Providers: Moustapha Stanley DO Referring MD: Eboni Katz MD Medicines: Monitored Anesthesia Care Patient Profile: This is a 79 year old female. Refer to note in patient chart for documentation of history and physical. Patient has symptoms of acute left upper quadrant abdominal pain, acute left lower quadrant abdominal pain and acute epigastric abdominal pain. Last Colonoscopy: several years ago. Complications: No immediate complications. Procedure: Pre-Anesthesia Assessment: [...] patient was re-assessed after the procedure. After I obtained informed consent, the scope was passed under direct vision. Throughout the procedure, the patient's blood pressure, pulse, and oxygen saturations were monitored continuously. The Colonoscope was introduced through the anus and advanced to the terminal ileum. The colonoscopy was performed without difficulty. The patient tolerated the procedure well. Scope In: 7:29:01 AM Scope Out: 7:54:14 AM Total Procedure Duration Time 0 hours 25 minutes 13 seconds Findings: The perianal and digital rectal examinations were normal. Multiple small and large-mouthed diverticula were found in the recto-sigmoid colon, sigmoid colon and descending colon. Segmental moderate inflammation characterized by congestion (edema), erythema, friability and granularity was found in the rectum and in the sigmoid colon. Two sessile polyps were found in the cecum. The polyps were 8 mm in size. These polyps were removed with a jumbo cold forceps. Resection and retrieval were complete. Verification of patient identification for the specimen was done. Estimated blood loss was minimal. Impression: - Diverticulosis in the recto-sigmoid colon, in the sigmoid colon and in the descending colon. - Segmental moderate inflammation was found in the rectum and in the sigmoid colon secondary to colitis. - Two 8 mm polyps in the cecum, removed with a jumbo cold forceps. Resected and retrieved. Recommendation: - Repeat colonoscopy in 5 years for surveillance. - Continue present medications. Procedure Code(s): --- Professional --- 74114, Colonoscopy, flexible; with biopsy, single or multiple CPT copyright 2021 [employer]. All rights reserved. The codes documented in this report are preliminary and upon signal tower director review may be revised to meet current compliance requirements. Moustapha Stanley DO 12/17/2024 8:05:49 AM This report has been signed electronically. Number of Addenda: 0 Note Initiated On: 12/17/2024 7:27 AM 12/17/24804 Date _ Moustapha Stanley DO Cosigner Signature: Date (if indicated) CC: Dr. Eboni Katz MD; Moustapha Stanley DO ~ Date Dictated: 12/17/24726 Date Transcribed: Head Of Product: RF Signed [facility]08-29-2025 Procedure note [facility] Medical Records Department [address] [place] [address] Provation Physician Letter MR#: [id number] Acct: [id number] Name: GEORGIA RO Rep #:[id number] : 1945 79 From: Moustapha Stanley DO PCP: Dr. Eboni Katz MD Status:R [facility] 12/17/2024 Eboni Katz MD [address] [place] [address] [place] [address] Re : Colonoscopy procedure for Georgia Ro Dear Dr. Katz This procedure was performed on Tuesday, December 17, 2024. My impressions and recommendations are as follows: Impressions : - Diverticulosis in the recto-sigmoid colon, in the sigmoid colon and in the descending colon. - Segmental moderate inflammation was found in the rectum and in the sigmoid colon secondary to colitis. - Two 8 mm polyps in the cecum, removed with a jumbo cold forceps. Resected and retrieved. Recommendations : - Repeat colonoscopy in 5 years for surveillance. - Continue present medications. My findings are described in the full procedure note, which is enclosed. If I can be of further assistance, please feel free to contact me at . Sincerely, Moustapha Stanley DO 12/17/2024 8:05:49 AM This report has been signed electronically. 12/17/24804 Date _ Moustapha Rodriguez Signature: Date (if indicated) CC: Dr. Eboni Katz MD; Moustapha Stanley DO ~ Date Dictated: 12/17/24726 Date Transcribed: Head Of Product: RF Signed [facility]08-29-2025 Consult note [facility] Medical Records Department [address] [place] [address] [place] [address] Anesthesia Postop Eval I 12/17/24801 MR#: [id number] Acct: [id number] Name: GEORGIA RO Rep #:[id number] : 1945 79 From: Obi joaquin [employer] GROUND WORKER PCP: Dr. Eboni Katz MD Status:R [facility] Y Race: C Location: [place] [address] Anesthesia: Postop Eval I Current Vital Signs Temperature: 97.8 F Pulse Rate: 61 Blood Pressure: 86/64 Respiratory Rate: 18 Pulse Ox: 99 Oxygen Delivery Method: Room Air Assessment Airway patent: Yes Spontaneous unlabored respirations: Yes Mental status: Awake nausea: No Vomiting: No Anesthesia Complication: No Fluid Hydration Crystalloid volume administer (ml): 500 Total IV fluid infused: 500 Progress Note Anesthesia document: Postop Eval 1 completed: Yes 12/17/24801 ero [employer]IL[employer]IES GROUND WORKER> Date _ Obi Carriero [employer] GR[employer] WORKER Cosigner Signature: Date CC: ~ Signed [facility]08-29-2025 Procedure note [facility] Medical Records Department [address] [place] [address] EGD Report MR#: [id number] Acct: [id number] Name: GEORGIA RO Rep #:[id number] : 1945 79 From: Moustapha Stanley DO PCP: Dr. Eboni Katz MD Status:R EG [facility] Patient Name: Georgia Ro Procedure Date: 12/17/2024 7:11 AM Date of : 1945 Age: 79 Procedure: Upper GI endoscopy Indications: Epigastric abdominal pain, Abdominal pain in the left upper quadrant, Abdominal pain in the left lower quadrant, Acute post hemorrhagic anemia, Melena Providers: Moustapha Stanley DO Referring MD: Eboni Katz MD Medicines: Monitored Anesthesia Care Patient Profile: This is a 79 year old female. Refer to note in patient chart for documentation of history and physical. Patient has symptoms of acute left upper quadrant abdominal pain, acute left lower quadrant abdominal pain and acute epigastric abdominal pain. Complications: No immediate complications. Procedure: Pre-Anesthesia Assessment: [...] and oxygen saturations were monitored continuously. The Colonoscope was introduced through the mouth, and advanced to the third part of the duodenum. Small bowel enteroscopy was deemed necessary. The upper GI endoscopy was accomplished without difficulty. The patient tolerated the procedure well. Scope In: 7:23:51 AM Scope Out: 7:27:25 AM Total Procedure Duration Time 0 hours 3 minutes 34 seconds Findings: The examined esophagus was normal. One non-bleeding linear gastric ulcer with no stigmata of bleeding was found at the pylorus. The lesion was 5 mm in largest dimension. Biopsies were taken with a cold forceps for Helicobacter pylori testing. Biopsies were taken with a cold forceps for histology. Verification of patient identification for the specimen was done. Estimated blood loss was minimal. The examined duodenum was normal. Impression: - Normal esophagus. - Non-bleeding gastric ulcer with no stigmata of bleeding. Biopsied. - Normal examined duodenum. Recommendation: - Discharge patient to home. - Resume previous diet. - Continue present medications. - Await pathology results. Procedure Code(s): --- Professional --- 87524, Small intestinal endoscopy, enteroscopy beyond second portion of duodenum, not including ileum; with biopsy, single or multiple CPT copyright 2021 [employer]. All rights reserved. The codes documented in this report are preliminary and upon signal tower director review may be revised to meet current compliance requirements. Moustapha Stanley DO 12/17/2024 8:00:23 AM This report has been signed electronically. Number of Addenda: 0 Note Initiated On: 12/17/2024 7:11 AM 12/17/24 0800 Date _ Moustapha Stanley DO Cosigner Signature: Date (if indicated) CC: Dr. Eboni Katz MD; Moustapha Stanley DO ~ Date Dictated: 12/17/24710 Date Transcribed: Head Of Product: RF Signed [facility]08-29-2025 Procedure note [facility] Medical Records Department [address] [place] [address] Provation Physician Letter MR#: [id number] Acct: [id number] Name: GEORGIA RO Rep #:[id number] : 1945 79 From: Moustapha Stanley DO PCP: Dr. Eboni Katz MD Status:R [facility] 12/17/2024 Eboni Katz MD [address] [place] [address] [place] [address] Re : Upper GI endoscopy procedure for Georgia Ro Dear Dr. Katz This procedure was performed on Tuesday, December 17, 2024. My impressions and recommendations are as follows: Impressions : - Normal esophagus. - Non-bleeding gastric ulcer with no stigmata of bleeding. Biopsied. - Normal examined duodenum. Recommendations : - Discharge patient to home. - Resume previous diet. - Continue present medications. - Await pathology results. My findings are described in the full procedure note, which is enclosed. If I can be of further assistance, please feel free to contact me at . Sincerely, Moustapha Stanley DO 12/17/2024 8:00:23 AM This report has been signed electronically. 12/17/24 0800 Date _ Moustapha Rodriguez Signature: Date (if indicated) CC: Dr. Eboni Katz MD; Moustapha Stanley DO ~ Date Dictated: 12/17/24710 Date Transcribed: Head Of Product: RF Signed [facility]08-29-2025 History and physical note [facility] Medical Records Department [address] [place] [address] History & Physical Exam 12/17/24 0650 MR#: [id number] Acct: [id number] Name: GEORGIA RO Rep #:[id number] : 1945 79 From: Moustapha Stanley DO PCP: Dr. Eboni Katz MD Status:R [facility] Location: [place] [address] HPI - General General Date of Admission: 12/17/24 Date of Service: 12/17/24 Chief Complaint: black stools and anemia HPI Narrative GEORGIA RO, is a 79 F who presents with the Chief Complaint: black stools [facility] established 11.12.12 with complaints of burning esophageal/epigastric pain, nausea [...] the first portion of the duodenum. Biopsied. *2.12.25 office contacted due to black stools and [...] She has not noticed these symptoms being particularly worss than usual. Continues with PPI daily. PCP refilled Carafate however she has not yet started it. [facility] Medical History Bladder disease Difficulty swallowing History of hiatal [...] cholesterol Chronic hypertension Generalized osteoarthritis Home Medications ?Medication ?Instructions ?Recorded ?Last Taken ?Type multivitamin with iron 1 tab PO DAILY 03/31/1312/12 History biotin 2,500 mcg capsule 2,500 mcg PO ONCE 07/15/17 1 05/29/23 History celecoxib 200 mg capsule (Celebrex) 200 mg PO DAILY [place] N pain #90 caps 09/16/23 03/28/24 Rx potassium chloride 20 mEq 20 meq PO BID #180 tabs 11/1103/28/24 Rx tablet,extended release hydrochlorothiazide 25 mg tablet See Rx Instructions . Route 06/28/24 Unknown Rx .COMPLEX #90 tabs ropinirole 0.5 mg tablet 0.5 mg PO TID #360 tabs 06/1912/17/24 Rx losartan 100 mg tablet 100 mg PO DAILY 3 months #90 tabs 09/06/24 12/17/24 Rx oxybutynin chloride 10 mg 10 mg PO QDAY #90 tabs 09/06 Unknown Rx tablet,extended release 24 hr amlodipine 5 mg tablet 7.5 mg (1.5 x 5 mg) PO DAILY 3 09/20/24 12/17/24 Rx months #135 tabs metformin 500 mg tablet,extended 500 mg PO BID #90 tab s 10/04/24 Unknown Rx release 24 hr acetaminophen 325 mg tablet 650 mg PO Q4H PRN PRN Pain Or Fever 10/27/24 Unknown History aspirin 81 mg tablet 81 mg PO QDAY 10/27/2412/09 History pantoprazole 40 mg tablet,delayed 40 mg PO BID #180 ta bs 10/27/24 12/17/24 Rx release Allergy/AdvReac Type Severity Reaction Status Date / Time lisinopril (From Zestril) AdvReac Intermediate Cough Verified 12/17/24 06:23 hydrocodone bitartrate (From AdvReac Mild Itching Verified 12/17/24 06:23 Vicodin) Family History Father Myocardial infarction Heart disease Hypertension Mother Breast cancer Grandmother Breast cancer Sister Lung cancer Seizures Surgical History History of surgical removal of skin lesion [...] home: Yes additional social history: [facility] SUN EXPOSURE: FREQUENTLY ROS Constitutional Constitutional: Denies fatigue, fever(s), poor appetite, weight gain or weight loss Gastrointestinal Gastrointestinal: Denies belching, bloating, change in bowel habits, change in stool character, chewing difficulty, coffee ground emesis, constipation, cramping, diarrhea, dyspepsia, dysphagia, earlysatiety, excessive flatus, fecalincontinence, heartburn, hematemesis, hematochezia, hemorrhoids, loose stools, melena, nausea, odynophagia, rectal bleeding, tenesmus, vomiting or weight changes Vital Signs Vital Signs Vital Signs: 12/17/24 06:25 12/17/24 06:25 12/17/24 06:31 Temperature 97 F L 97 F L Temperature Source Temporal Pulse Rate 69 69 Respiratory Rate 16 16 Respiratory Pattern Normal Blood Pressure 117/64 117/64 Blood Pressure Mean 81 Blood Pressure Source Monitor Blood Pressure Position Semi-Fowlers Blood Pressure Location Right Arm Pulse Ox 100 100 Oxygen Delivery Method Room Air Weight Weight: 196 lb Body Mass Index (BMI) 31.6 Physical Exam Const alert, oriented x3, no apparent distress and healthy appearing General Appearance: cooperative GI normal to inspection, nondistended, normoactive bowel sounds, soft to palpation,non-tender and non-distended Percussion: normal to percussion Rectal Exam: deferred Assessment & Plan Assessment/Plan (1) Abdominal pain: (2) GI bleed: PLAN: ROS Const Constitutional: Positive for fatigue; No fever(s) or weight change ENT ENT: Positive for difficulty swallowing Gastro GI: Positive for bloating, cramping, diarrhea, heartburn, difficulty swallowing,excessive flatus and nausea/dyspepsia; No abdominal pain, belching, change in bowel habits, change in stool character, coffee ground emesis, constipation, feeling full early, incontinent of stools, Vomiting blood/hematemesis, Blood in stool, loose stools, Black,tarry stools, pain with swallowing, vomiting or other Musc Musculoskeletal: Positive for back pain, muscle cramps, stiffness and Arthritis; No joint pain Skin Skin: Positive for dry skin; No yellowing of the eye or itchy eyes Neuro Neurology: Positive for dizziness Psych Psychiatric: No anxiety and No depression Endo Endocrine: Positive for fatigue; No weight change Aller/Imm Allergy/Immunologic: No itchy eyes Rodolfo/Lymp Hematologic/Lymphatic: No easy bleeding or easy bruising Exam Const General: cooperative, healthy appearing and comfortable Orientation: alert [facility] Head: normal to inspection Eyes General: appearance normal, both eyes and all related structures Neck Neck: normal visual inspection Chest Chest palpation & inspection: normal inspection of the chest Resp Effort & Inspection: normal respiratory effort Cardio Rate: regular rate Rhythm: regular rhythm GI Inspection: normal to inspection Auscultation: normal bowel sounds Palpation: soft and nontender Assessment and Plan Assessment and Plan (1) Abdominal pain: Status: Acute Plan: Georgia is a 79 yo female pt here today for f/u after having dark stools x 2 weeks. Pt has had this complaints in the past and underwent EGD in Mar 2024 which showed a small hiatal hernia, irregular z-line, a gastric polyp, and erythematous gastric mucosa. No source of GI bleeding was identified and hgb remained stable. Pt endorses continued symptoms of abd cramping, epigastric pain, and nausea. SHe continues with PPI daily. PCP refilled Carafate however she has not yet started this. I will orderstool testing to rule out infection, inflammation or blood in her stool. Last colonoscopy was in 2022 which was failed due to poor prep and recommend to repeat. This has not yet be completed. Due to symptoms and recommendation to repeat endoscopy, she will undergo colonoscopy. Since she continued to epigastric pain she will have EGD at the same time. -Continue PPI -Start Carafate -Stool testing -EGD and colonoscopy -f/u after procedures (2) Dark stools: Status: Acute Orders: Orders Calprotectin, Stool Today R10.9 - Unspecified abdominal pain, R19.5 - Other fecal abnormalities ENTERIC PATHOGEN PANEL STOOL Today K58.9 - Irritable bowel syndrome, unspecified, R10.9 - Unspecified abdominal pain, R19.5 - Other fecal abnormalities CDIFF (PCR) Today R10.9 - Unspecified abdominal pain, R19.5 - Other fecal abnormalities Stool Occult Blood iFOB Today R10.9 - Unspecified abdominal pain, R19.5 - Otherfecal abnormalities Pancreatic Elastase, Fecal Today R10.9 - Unspecified abdominal pain, R19.5 - Other fecal abnormalities OVA+PARA w/Giardia EIA [id number] Today R10.9 - Unspecified abdominal pain, R19.5 - Other fecal abnormalities 12/17/24 0652 Cosigner Signature (if applicable): CC: Dr. Eboni Katz MD; Moustapha Stanley DO~ Signed [facility]08-29-2025 [facility] Medical Records Department [address] [place] [address] History Physical Exam 12/17/24 0650 MR#: [id number] Acct: [id number] Name: GEORGIA RO Rep #: [id number] : 1945 79 From: Moustapha Stanley DO PCP: Dr. Eboni Katz MD Status:[facility] Location: [place] [address] HPI - General General Date of Admission: 12/17/24 Date of Service: 12/17/24 Chief Complaint: black stools and anemia HPI Narrative GEORGIA RO, is a 79 F who presents with the Chief Complaint: black stools [facility] established 02.27.24 with complaints of burning [...] the first portion of the duodenum. Biopsied. *2.04.14 office contacted due to black stools and [...] She has not noticed these symptoms being particularly worss than usual. Continues with PPI daily. PCP refilled Carafate however she has not yet started it. [facility] Medical History Bladder disease Difficulty swallowing History of hiatal [...] with iron 1 tab PO DAILY 03/31/13 03/28/24 H istory biotin 2,500 mcg capsule 2,500 mcg PO ONCE 07/15/17 4 History celecoxib 200 mg capsule (Celebrex) 200 mg PO DAILY PRN pain #90 ca ps 09/16/23 03/28/24 Rx potassium chloride 20 mEq 20 meq PO BID #180 tabs 01/26/24 1 05/29/23 Rx tablet,extended release hydrochlorothiazide 25 mg tablet See Rx Instructions .Route 5 Unknown Rx .COMPLEX #90 tabs ropinirole 0.5 mg tablet 0.5 mg PO TID #360 tabs 06/28/24 0 12/17/24 Rx losartan 100 mg tablet 100 mg PO DAILY 3 months #90 tabs 09/06/24 12/17/24 Rx oxybutynin chloride 10 mg 10 mg PO QDAY #90 tabs 09/06/24 Un known Rx tablet,extended release 24 hr amlodipine 5 mg tablet 7.5 mg (1.5 x 5 mg) PO DAILY 3 06/1512/17/24 Rx months #135 tabs metformin 500 mg tablet,extended 500 mg PO BID #90 tabs 10/04/24 Un known Rx release 24 hr acetaminophen 325 mg tablet 650 mg PO Q4H PRN PRN Pain Or Feve r 10/27/24 Unknown History aspirin 81 mg tablet 81 mg PO QDAY 10/27/24 12/09/24 Hi story pantoprazole 40 mg tablet,delayed 40 mg PO BID #180 tabs 10/27/24 0 12/17/24 Rx release Allergy/AdvReac Type Severity Reaction Status Date / Time lisinopril (From Zestril) AdvReac Intermediate Cough Verified 12/17/24 06:23 hydrocodone bitartrate (From AdvReac Mild Itching Verified 12/17/24 06:23 Vicodin) Family History Father Myocardial infarction (more content not included)...[facility]08-29-2025 Consult note [facility] Medical Records Department [address] [place] [address] Pre-Anesthesia Evaluation 12/17/24 0630 MR#: [id number] Acct: [id number] Name: GEORGIA RO Rep #:[id number] : 1945 79 From: Ger Juarez MD PCP: Dr. Eboni Katz MD Status:R EG SDC Y Race: C Location: [place] [address] ASA Classification* ASA Classification ASA Classification: 2 Assessment & Plan Anesthesia* Anesthesia Assessment Anesthesia Assessment: Discussed sedation and/or anesthesia options, risks, benefits, and alternatives with patient/parents/legal guardian/POA. Questions invited. The patient/parents/legal guardian/POA seems to understand and agrees to proceedwith anesthesia plan. Reviewed the physical assessment, medical history, allergy history and patient home medications list prior to surgery/procedure/anesthetic and documented any changes. Performed airway and anesthesia risk assessments. Anesthesia Type Anesthesia Type: MAC Anesthesia Focused Assessment* Temperature: 97 F Pulse Rate: 69 Blood Pressure: 117/64 Respiratory Rate: 16 Pulse Ox: 100 Airway Assessment Mouth opens: >3 cm Mallampati Score: II Labs Anesthesia Preop lab: CBC WBC 7.2 K/mm3 (4.4-11.0) 10/27/24 10:10 10/27/24 RBC 4.61 M/mm3 (4.2-5.4) 10/27/24 10:10 10/27/24 Hgb 13.7 g/dL (12.0-15.0) 10/27/24 10:10 10/27/24 Hct 41.9 % (37-47) 10/27/24 10:10 10/27/24 Plt Count 233 K/mm3 (150-450) 10/27/24 10:10 10/27/24 CHEMISTRY Potassium 4.8 mmol/L (3.3-5.1) 10/27/24 10:10 10/27/24 Sodium 140 mmol/L (133-145) 10/27/24 10:10 10/27/24 Magnesium 1.7 mg/dL (1.6-2.6) 11/06/18 09:26 11/06/18 BUN 20 mg/dL (4-19) H 10/27/24 10:10 10/27/24 Creatinine 1.13 mg/dL (0.70-1.20) 10/27/24 10:10 10/27/24 Glucose 103 mg/dL (70-99) H 10/27/24 10:10 10/27/24 POC Glucose 136 mg/dL (70-110) H 10/25/19 09:51 10/25/19 TSH 3.280 uIU/mL (0.300-4.200) 10/27/24 10:10 07/01/13 COAG PT 14.0 SECONDS (11.7-14.9) 02/24/24 16:40 Pre-Assessment Diagnosis/Proposed Procedure Planned Operative Procedure(s): Colonoscopy,EGD Anesthesia History Anesthesia 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 When Was Last Pacemaker Check QUESTION #4 FULL TEXT: You/Your Family Experience fever (hyperthermia) with Anesthesia Last Oral Intake Last Oral intake: Last Oral Intake NPO since 05:00 12/17/24 06:25 Meds taken in AM with sips of water? 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 - manufacturing millwright: PONV - manufacturing millwright Female Yes 12/16/24 09:08 HX of Motion Sickness No 12/16/24 09:08 HX of N/V After Surgery Yes 12/16/24 09:08 Non-Smoker Yes 12/16/24 09:08 Duration of Surgery greater No 12/16/24 09:08 than 60 minutes Number of Risk Factors 3 12/16/24 09:08 PONV Score Moderate Risk 12/16/24 09:08 Height & Weight Height & Weight: Anesthesia: Height & Weight Height 5 ft 6 in 12/17/24 06:25 Weight: 88.904 kg 12/17/24 06:25 Body Mass Index (BMI) 31.6 12/17/24 06:25 Respiratory Assessment Respiratory Assessment - manufacturing millwright: Respiratory Tract Infection Hx - manufacturing millwright Hx Respiratory Tract Infection No 12/16/24 09:08 STOP Sleep Apnea STOP Sleep Apnea - manufacturing millwright: STOP Sleep Apnea - manufacturing millwright Hx Hypertension Yes: on meds 12/16/24 09:08 [...] than talking or can be heard through closeddoors)? Tobacco Use History Tobacco Use History - manufacturing millwright: Tobacco Use History - manufacturing millwright Tobacco Use Smoking Status Never smoker 12/16/24 09:08 Hx Tobacco Use No 12/16/24 09:08 Years Smoking Packs Smoked per Day Smoking Cessation Date was within the last 15 years Hx Smoking Cessation Date Hx Smoking Cessation Counseling Hematologic 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 Specify any problems Hx of Preganancy in last 3 No 12/16/24 09:08 Months Nurse Filling Out Transfusion JZOLLINGE 12/16/24 09:08 & Questions: Date: 12/16/24 12/16/24 09:08 Time: 09:10 12/16/24 09:08 Patient unable to answer at this time (ie. confused, unrespo /Reproduction History /Reproductive History - manufacturing millwright: /Reproductive Hx- manufacturing millwright Hx Now No 12/16/24 09:08 Gestational Age (in weeks): EDC: Hx Hx Para Hx Section SAB No 12/16/24 09:08 Active Medications Active Medications: Current Medications Generic Name Dose Route Start Last Admin Trade Name Freq PRN Reason Stop Dose Admin Lactated Ringer's 1,000 mls @ 15 mls/hr 12/17/24 06:15 IV .Q48H MARIA FERNANDA PFSH Medical History Bladder disease Difficulty swallowing History of hiatal [...] cholesterol Chronic hypertension Generalized osteoarthritis Home Medications ?Medication ?Instructions ?Recorded ?Last Taken ?Type multivitamin with iron 1 tab PO DAILY 03/31/1312/12 History biotin 2,500 mcg capsule 2,500 mcg PO ONCE 07/15/17 1 05/29/23 History celecoxib 200 mg capsule (Celebrex) 200 mg PO DAILY [place] N pain #90 caps 09/16/23 03/28/24 Rx potassium chloride 20 mEq 20 meq PO BID #180 tabs 11/1103/28/24 Rx tablet,extended release hydrochlorothiazide 25 mg tablet See Rx Instructions . Route 06/28/24 Unknown Rx .COMPLEX #90 tabs ropinirole 0.5 mg tablet 0.5 mg PO TID #360 tabs /12/17/24 Rx losartan 100 mg tablet 100 mg PO DAILY 3 months #90 tabs 09/06/24 12/17/24 Rx oxybutynin chloride 10 mg 10 mg PO QDAY #90 tabs 09/06 Unknown Rx tablet,extended release 24 hr amlodipine 5 mg tablet 7.5 mg (1.5 x 5 mg) PO DAILY 3 09/20/24 12/17/24 Rx months #135 tabs metformin 500 mg tablet,extended 500 mg PO BID #90 tab s 10/04/24 Unknown Rx release 24 hr acetaminophen 325 mg tablet 650 mg PO Q4H PRN PRN Pain Or Fever 10/27/24 Unknown History aspirin 81 mg tablet 81 mg PO QDAY 10/27/2412/09 History pantoprazole 40 mg tablet,delayed 40 mg PO BID #180 ta bs 10/27/24 12/17/24 Rx release Allergy/AdvReac Type Severity Reaction Status Date / Time lisinopril (From Zestril) AdvReac Intermediate Cough Verified 12/17/24 06:23 hydrocodone bitartrate (From AdvReac Mild Itching Verified 12/17/24 06:23 Vicodin) Family History Father Myocardial infarction Heart disease Hypertension Mother Breast cancer Grandmother Breast cancer Sister Lung cancer Seizures Surgical History History of surgical removal of skin lesion [...] social history: [employer] [facility] SUN EXPOSURE: FREQUENTLY Review of Systems (Anesthesia) ROS Narrative System reviewed and no additional complaints, except as documented. 12/17/24 0631 MD> Date _ Ger Juarez MD Cosigner Signature: Date CC: ~ Signed [facility]07-09-2025 Evaluation note* Diagnosis Onset Date Resolution Status Admit Date GI bleed acute October 27, 2024 9:28am Borderline type 2 diabetes mellitus chronic October 27, 2024 9 :28am Dyspnea on exertion chronic October 27, 2024 9:28am Hypertension chronic October 27 9:28am Obstructive sleep apnea chronic 2024 9:28am Restless leg syndrome chronic Oct 9:28am Abdominal pain acute October 28, 2024 12:45pm Dark stools acute October 28 12:45pm [facility] Work Phone: 1(706) 453-964807-09-2025 Evaluation note* Diagnosis Onset Date Resolution Status Admit Date GI bleed acute October 27, 2024 9:28am Borderline type 2 diabetes mellitus chronic October 27, 2024 9 :28am Dyspnea on exertion chronic October 27, 2024 9:28am Hypertension chronic October 27 9:28am Obstructive sleep apnea chronic 2024 9:28am Restless leg syndrome chronic Oct 9:28am Abdominal pain acute October 28, 2024 12:45pm Dark stools acute October 28 12:45pm Abdominal pain acute November 5:33am GI bleed acute December 17, 025 5:33am [facility] Work Phone: [phone]) 160-745707-09-2025 Evaluation note* Diagnosis Onset Date Resolution Status Admit Date GI bleed acute October 27, 2024 9:28am Borderline type 2 diabetes mellitus chronic October 27, 2024 9 :28am Dyspnea on exertion chronic October 27, 2024 9:28am Hypertension chronic October 27 9:28am Obstructive sleep apnea chronic J leroy2024 9:28am Restless leg syndrome chronic Oct 9:28am Abdominal pain acute October 28, 2024 12:45pm Dark stools acute October 28 12:45pm Abdominal pain acute November 5:33am GI bleed acute December 17, 2 025 5:33am Small lymphocytic lymphoma acute December 27, 2024 9:56am [employer] [facility] Work Phone: 1(750) 487-154407-09-2025 Evaluation note* Diagnosis Onset Date Resolution Status Admit Date GI bleed acute October 27, 2024 9:28am Borderline type 2 diabetes mellitus chronic October 27, 2024 9 :28am Dyspnea on exertion chronic October 27, 2024 9:28am Hypertension chronic October 27 9:28am Obstructive sleep apnea chronic [facility]2024 9:28am Restless leg syndrome chronic Oct 9:28am Abdominal pain acute October 28, 2024 12:45pm Dark stools acute October 28 12:45pm Abdominal pain acute November 5:33am GI bleed acute December 17, 2 025 5:33am Small lymphocytic lymphoma acute December 27, 2024 9:56am Gastric ulcer acute December 202024 7:27am Nausea acute December 7:27am GERD (gastroesophageal reflu x disease) chronic January 07, 2025 7:27am [employer] [facility] Work Phone: 1([phone]) 595-123307-09-2025 Evaluation note* Diagnosis Onset Date Resolution Status Admit Date GI bleed acute October 27, 2024 9:28am Borderline type 2 diabetes mellitus chronic October 27, 2024 9 :28am Dyspnea on exertion chronic October 27, 2024 9:28am Hypertension chronic October 27 9:28am Obstructive sleep apnea chronic J [facility] 2024 9:28am Restless leg syndrome chronic Oct 9:28am Abdominal pain acute October 28, 2024 12:45pm Dark stools acute October 28 12:45pm Abdominal pain acute November 5:33am GI bleed acute December 17, 2 025 5:33am Small lymphocytic lymphoma acute December 27, 2024 9:56am Gastric ulcer acute December 202024 7:27am Nausea acute December 7:27am GERD (gastroesophageal reflu x disease) chronic January 07, 2025 7:27am Colitis acute January 31, 2025 7:47am Encounter for immunization acute January 31, 2025 7:47am Benign essential hypertension chroni c January 31, 2025 7:47am Borderline type 2 diabetes mellitus chronic January 31 7:47am GERD (gastroesophageal reflu x disease) chronic January 31 7:47am Obesity (BMI 30-39.9) chronic Oct slade 2024 7:47am Overactive bladder chronic Octobe r 2024 7:47am [employer] Work Phone: 1([phone]) [phone] Evaluation note* Diagnosis Onset Date Resolution Status Admit Date Borderline type 2 diabetes mellitus chronic July 26, 2024 8:57am Hyperlipidemia chronic July 26, 2024 8:57am Hypertension chronic July 26, 2 025 8:57am Restless legs syndrome chronic Ap 2024 8:57am [employer] Work Phone: [phone]) [phone] Evaluation note* Diagnosis Onset Date Resolution Status [...] leroy 2024 9:28am Restless leg syndrome chronic Maxwell y 2024 9:28am Abdominal pain acute October 28, 2024 12:45pm Dark stools acute October 28 12:45pm [employer] Work Phone: 1(130) 471-643812-09-2024 [facility] Medical Records Department [address] [place] [address] History Physical Exam 03/29/24 0743 MR#: [id number] Acct: [id number] Name: GEORGIA RO Rep #: [id number] : 1945 78 From: [facility] Friend PCP: Dr. Eboni Katz MD Status:[facility] Location: [place] [address] History and Physical Date of Admission: 03/29/24 HPI Chief Complaint: +FOBT Details: GEROGIA RO, is a 78 F who presents to the office today for establishment with [facility]. For a month now pt has [...] CC: Dr. Eboni Allen (more content not included)...[facility] 05-21-2023 History and physical note Author Andre Machado [facility] May 21, 2023 8:02am Note Date/Time May 21, 2023 8 :02am [facility] Medical Records Department [address] [place] [address] H&P Exam - Surgical 05/21/23 0800 MR#: [id number] Acct: [id number] Name: GEORGIA RO Rep #:[id number] : 1945 77 From: Andre melvin MD PCP: Dr. Eboni Katz MD Status:[facility] Location: [place] [address] HPI - General HPI Narrative GEORGIA RO, is a 77 F who presents for excisional biopsy of left axillary lymphnode. The patient had lymph node biopsy about a year ago and which was normal. She has been having pain ever since and she had repeat imaging that showed enlargement of her lymph nodes on her left side. [facility] Medical History Actinic keratosis Arthritis Back [...] willing to proceed. Andre Machado MD Pager: [facility] [address] [place] [address] [facility] [address] [place] [address] Office: 05/21/23 08 <Electronically signed by Andre Machado MD> Cosigner Signature (if applicable): CC: Dr. Andre Machado MD; Dr. Eboni Katz MD~ Signed [facility] Work Phone: 1(790) 487-173301-31-2024 [facility]05-05-2023 [facility] Obi Elizabethemani [facility] Note Date/Time December 17, 2024 8: 02am [facility] Medical Records Department [address] [place] [address] Anesthesia Postop Eval I 12/17/24 0802 MR#: [id number] Acct: [id number] Name: GEORGIA RO Rep #:[id number] : 1945 79 From: Obi joaquin [employer] PCP: Dr. Eboni Katz MD Status:R EG [facility] Y Race: C Location: [place] [address] Anesthesia: Postop Eval I Current Vital Signs Temperature: 97.8 F Pulse Rate: 61 Blood Pressure: 86/64 Respiratory Rate: 18 Pulse Ox: 99 Oxygen Delivery Method: Room Air Assessment Airway patent: Yes Spontaneous unlabored respirations: Yes Mental status: Awake nausea: No Vomiting: No Anesthesia Complication: No Fluid Hydration Crystalloid volume administer (ml): 500 Total IV fluid infused: 500 Progress Note Anesthesia document: Postop Eval 1 completed: Yes 12/17/24 0802 <Electronically signed by Obi rivas CRNA> Date _ Obi Potts CRNA Cosigner Signature: Date CC: ~ Signed [facility] Work Phone: Consult note Author Ger Juarez [facility] Note Date/Time December 17, 2024 8: 46am [facility] Medical Records Department [address] [place] [address] Anesthesia Postop Eval II 12/17/24 0837 MR#: [id number] Acct: [id number] Name: GEORGIA RO Rep #:[id number] : 1945 79 From: Ger Juarez MD PCP: Dr. Eboni Katz MD Status:R EG SDC Y Race: C Location: [place] [address]- Anesthesia Postop Eval I Sum Postop Eval Completion status Anesthesia document: Postop Eval 1 completed: Yes Anesthesia Postop Eval I Summary Anesthesia Postop Eval I Summary: Anesthesia Postop Eval I: Assessment Summary Airway patent Yes 12/17/24 08:02 [employer].ACAR Spontaneous unlabored Yes 12/17/24 08:02 [employer].ACAR respirations Mental status Awake 12/17/24 08:02 [employer].ACAR nausea No 12/17/24 08:02 [employer].ACAR Vomiting No 12/17/24 08:02 [employer] WORK[employer].ACAR Anesthesia Postop Eval I: Fluid Summary Crystalloid volume administer 500 12/17/24 08:02 [employer] WORKER.ACAR (ml) Colloids volume administered ( ml) Blood Product volume administered (ml) Total IV fluid infused 500 12/17/24 08:02 [employer] WORK[employer].ACAR Anesthesia Postop Eval I: Summary Notes Anesthesia Complication No 12/17/24 08:02 [employer] WORK[employer].ACAR Anesthesia Complication Comment: Post-operative progress note Anesthesia: Postop Eval II Evaluation Mental status: Awake Pain Level: 0 nausea: No Vomiting: No 12/17/24 0837 <Electronically signed by Ger Juarez MD> Date _ Ger Juarez MD Cosigner Signature: Date CC: ~ Signed [facility] Work Phone: Discharge summary Author Andre Machado [facility] May 21, 2023 9:36am Note Date/Time May 21, 2023 9 :34am [facility] Medical Records Department [facility] [place] [address] Instructions for Home/Discharge Instructions 05/21/23 0933 MR#: [id number] Acct: [id number] Name: GEORGIA RO Rep #:[id number] : 1945 77 From: Andre melvin MD PCP: Dr. Eboni Katz MD Status:R EG [facility] Discharge Instructions Diet Discharge Diet: Light diet [...] to schedule 2 week follow up appointment. [phone] Test Results: Test results from this visit [...] can be placed): Home, Self Care 05/21/23 1336<Electronically signed by Andre Machado MD>Andre Machado MD CC: Dr. Eboni Katz MD ~ Signed [facility] Work Phone: evaluation noteNo assessment information available [facility] Work Phone: evaluation note* Diagnosis Onset Date Resolution Status Shortness of breath acute Bilateral lower extremity edema chronic Chronic sinusitis chronic Hypertension [facility] Work Phone: Evaluation note* Diagnosis Onset Date Resolution Status Shortness of breath acute Bilateral lower extremity edema chronic Chronic sinusitis chronic Hypertension chronic Lymphadenopathy acute Lymphadenopathy acute [facility] Work Phone: Evaluation note* Diagnosis Onset Date Resolution Status Sinusitis acute Borderline type 2 diabetes mellitus chronic Depression with anxiety 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 Dupuytren's contracture 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 Hypertension chronic Restless legs syndrome chron ic Encounter for screening for malignant neoplasm of colo n acute [facility] Work Phone: Evaluation note* Diagnosis Onset Date Resolution Status Sinusitis acute Borderline type 2 diabetes mellitus chronic Depression with anxiety 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 Dupuytren's contracture 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 Hypertension chronic Restless legs syndrome chron ic Encounter for screening for malignant neoplasm of colo n acute Health care maintenance acut e Benign essential hypertension chronic Borderline type 2 diabetes mellitus chronic Dupuytren's contracture 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 GERD (gastroesophageal reflux disease) chronic [facility] Work Phone: Evaluation note* Diagnosis Onset Date Resolution Status Benign essential hypertension chronic Borderline type 2 diabetes mellitus chronic Restless legs syndrome chron ic Left axillary pain acute [facility] Work Phone: Evaluation note* Diagnosis Onset Date Resolution Status Benign essential hypertension chronic Borderline type 2 diabetes mellitus chronic Restless legs syndrome chron ic Left axillary pain acute Acute sinusitis acute Sinusitis acute Borderline type 2 diabetes mellitus chronic Hypertension chronic Restless leg syndrome chroni c [facility] Work Phone: Evaluation note* Diagnosis Onset Date Resolution Status Benign essential hypertension chronic Borderline type 2 diabetes mellitus chronic Restless legs syndrome chron ic Left axillary pain acute Acute sinusitis acute Sinusitis acute Borderline type 2 diabetes mellitus chronic Hypertension chronic Restless leg syndrome chroni c Left axillary pain acute Lymphadenopathy acute [facility] Work Phone: History and physical note Author Dr. Machado [facility] August 23, 2022 9:07am Note Date/Time August 23, 2022 9:07am [facility] Medical Records Department [address] [place] [address] History & Physical Exam 08/23/22 0905 MR#: [id number] Acct: [id number] Name: GEORGIA RO Rep #:[id number] : 1945 76 From: Andre melvin MD PCP: Dr. Eboni Katz MD Status:R [facility] Location: [place] [address] HPI - General HPI Narrative GEORGIA RO, is a 76 F who presents for screening colonoscopy. Her last colonoscopy was 10 years ago and was normal. She denies abdominal pain or bloodin the stool or family history of colon cancer. [facility] Medical History (Updated 07/24/22 @ 09:45 [...] social history: [employer] SUN EXPOSURE: FREQUENTLY Past Medical/Surgical History Planned [...] Surgery/Stents/Etc.: No Hx Stress Test: Yes (04/02 [facility]) Hx Pain in Legs when Walking/Leg Cramps: [...] history Discharge Is Pt Admitted From a Half-Way, or a Care Home: No After D/C, Where Do you Plan [...] proceed with procedure. Andre Machado MD Pager: [facility] [address] [place] [address], [address] [place] [address] Office: Surgery Risks - Colonoscopy Risks Include but are not Limited To: Risks include but are not limited to: Bleeding, perforation requiring further surgery, inability to complete colonoscopy requiring barium enema. 08/23/22 0907 <Electronically signed by Andre Machado MD> Cosigner Signature (if applicable): CC: Dr. Andre Machado MD; Dr. Eboni Katz MD~ Signed [facility] Work Phone: History and physical note Author Moustapha Stanley [facility] Note Date/Time December 17, 2024 6: 52am [facility] Medical Records Department [address] [place] [id number] History & Physical Exam 12/17/24 0650 MR#: [id number] Acct: [id number] Name: GEORGIA RO ANN Rep #:[id number] : 1945 79 From: Moustapha Stanley DO PCP: Dr. Eboni Katz MD Status:R [facility] Location: [place] [address] HPI - General General Date of Admission: 12/17/24 Date of Service: 12/17/24 Chief Complaint: black stools and anemia HPI Narrative GEORGIA RO, is a 79 F who presents with the Chief Complaint: black stools BGI established 11.8.24 with complaints of burning esophageal/epigastric pain, nausea and black stools. Presented to the ED with these symptoms and was discharged on Pantoprazole 40 mg BID and Carafate 1 gram bid. Last EGD [address] abdomen pelvis 11.5.24; Findings which may [...] the first portion of the duodenum. Biopsied. *2 office contacted due to black stools and [...] She has not noticed these symptoms being particularly worss than usual. Continues with PPI daily. PCP refilled Carafate however she has not yet started it. [facility] Medical History Bladder disease Difficulty swallowing History of hiatal [...] cholesterol Chronic hypertension Generalized osteoarthritis Home Medications ?Medication ?Instructions ?Recorded ?Last Taken ?Type multivitamin with iron 1 tab PO DAILY 03/31/1312/12 History biotin 2,500 mcg capsule 2,500 mcg PO ONCE 07/15/17 1 05/29/23 History celecoxib 200 mg capsule (Celebrex) 200 mg PO DAILY [place] N pain #90 caps 09/16/23 03/28/24 Rx potassium chloride 20 mEq 20 meq PO BID #180 tabs 11/1103/28/24 Rx tablet,extended release hydrochlorothiazide 25 mg tablet See Rx Instructions . Route 06/28/24 Unknown Rx .COMPLEX #90 tabs ropinirole 0.5 mg tablet 0.5 mg PO TID #360 tabs 06/1912/17/24 Rx losartan 100 mg tablet 100 mg PO DAILY 3 months #90 tabs 09/06/24 12/17/24 Rx oxybutynin chloride 10 mg 10 mg PO QDAY #90 tabs 09/06 Unknown Rx tablet,extended release 24 hr amlodipine 5 mg tablet 7.5 mg (1.5 x 5 mg) PO DAILY 3 09/20/24 12/17/24 Rx months #135 tabs metformin 500 mg tablet,extended 500 mg PO BID #90 tab s 10/04/24 Unknown Rx release 24 hr acetaminophen 325 mg tablet 650 mg PO Q4H PRN PRN Pain Or Fever 10/27/24 Unknown History aspirin 81 mg tablet 81 mg PO QDAY 10/27/2412/09 History pantoprazole 40 mg tablet,delayed 40 mg PO BID #180 ta bs 10/27/24 12/17/24 Rx release Allergy/AdvReac Type Severity Reaction Status Date / Time lisinopril (From Zestril) AdvReac Intermediate Cough Verified 12/17/24 06:23 hydrocodone bitartrate (From AdvReac Mild Itching Verified 12/17/24 06:23 Vicodin) Family History Father Myocardial infarction Heart disease Hypertension Mother Breast cancer Grandmother Breast cancer Sister Lung cancer Seizures Surgical History History of surgical removal of skin lesion [...] home: Yes additional social history: [facility] SUN EXPOSURE: FREQUENTLY ROS Constitutional Constitutional: Denies fatigue, fever(s), poor appetite, weight gain or weight loss Gastrointestinal Gastrointestinal: Denies belching, bloating, change in bowel habits, change in stool character, chewing difficulty, coffee ground emesis, constipation, cramping, diarrhea, dyspepsia, dysphagia, early satiety, excessive flatus, fecalincontinence, heartburn, hematemesis, hematochezia, hemorrhoids, loose stools, melena, nausea, odynophagia, rectal bleeding, tenesmus, vomiting or weight changes Vital Signs Vital Signs Vital Signs: 12/17/24 06:25 12/17/24 06:25 12/17/24 06:31 Temperature 97 F L 97 F L Temperature Source Temporal Pulse Rate 69 69 Respiratory Rate 16 16 Respiratory Pattern Normal Blood Pressure 117/64 117/64 Blood Pressure Mean 81 Blood Pressure Source Monitor Blood Pressure Position Semi-Fowlers Blood Pressure Location Right Arm Pulse Ox 100 100 Oxygen Delivery Method Room Air Weight Weight: 196 lb Body Mass Index (BMI) 31.6 Physical Exam Const alert, oriented x3, no apparent distress and healthy appearing General Appearance: cooperative GI normal to inspection, nondistended, normoactive bowel sounds, soft to palpation,non-tender and non-distended Percussion: normal to percussion Rectal Exam: deferred Assessment & Plan Assessment/Plan (1) Abdominal pain: (2) GI bleed: PLAN: ROS Const Constitutional: Positive for fatigue; No fever(s) or weight change ENT ENT: Positive for difficulty swallowing Gastro GI: Positive for bloating, cramping, diarrhea, heartburn, difficulty swallowing,excessive flatus and nausea/dyspepsia; No abdominal pain, belching, change in bowel habits, change in stool character, coffee ground emesis, constipation, feeling full early, incontinent of stools, Vomiting blood/hematemesis, Blood in stool, loose stools, Black,tarry stools, pain with swallowing, vomiting or other Musc Musculoskeletal: Positive for back pain, muscle cramps, stiffness and Arthritis; No joint pain Skin Skin: Positive for dry skin; No yellowing of the eye or itchy eyes Neuro Neurology: Positive for dizziness Psych Psychiatric: No anxiety and No depression Endo Endocrine: Positive for fatigue; No weight change Aller/Imm Allergy/Immunologic: No itchy eyes Rodolfo/Lymp Hematologic/Lymphatic: No easy bleeding or easy bruising Exam Const General: cooperative, healthy appearing and comfortable Orientation: alert HENMT Head: normal to inspection Eyes General: appearance normal, both eyes and all related structures Neck Neck: normal visual inspection Chest Chest palpation & inspection: normal inspection of the chest Resp Effort & Inspection: normal respiratory effort Cardio Rate: regular rate Rhythm: regular rhythm GI Inspection: normal to inspection Auscultation: normal bowel sounds Palpation: soft and nontender Assessment and Plan Assessment and Plan (1) Abdominal pain: Status: Acute Plan: Georgia is a 79 yo female pt here today for f/u after having dark stools x 2 weeks. Pt has had this complaints in the past and underwent EGD in Mar 2024 which showed a small hiatal hernia, irregular z-line, a gastric polyp, and erythematous gastric mucosa. No source of GI bleeding was identified and hgb remained stable. Pt endorses continued symptoms of abd cramping, epigastric pain, and nausea. SHe continues with PPI daily. PCP refilled Carafate however she has not yet started this. I will order stool testing to rule out infection, inflammation or blood in her stool. Last colonoscopy was in 2022 which was failed due to poor prep and recommend to repeat. This has not yet be completed. Due to symptoms and recommendation to repeat endoscopy, she will undergo colonoscopy. Since she continued to epigastric pain she will have EGD at the same time. -Continue PPI -Start Carafate -Stool testing -EGD and colonoscopy -f/u after procedures (2) Dark stools: Status: Acute Orders: Orders Calprotectin, Stool Today R10.9 - Unspecified abdominal pain, R19.5 - Other fecal abnormalities ENTERIC PATHOGEN PANEL STOOL Today K58.9 - Irritable bowel syndrome, unspecified, R10.9 - Unspecified abdominal pain, R19.5 - Other fecal abnormalities CDIFF (PCR) Today R10.9 - Unspecified abdominal pain, R19.5 - Other fecal abnormalities Stool Occult Blood iFOB Today R10.9 - Unspecified abdominal pain, R19.5 - Otherfecal abnormalities Pancreatic Elastase, Fecal Today R10.9 - Unspecified abdominal pain, R19.5 - Other fecal abnormalities OVA+PARA w/Giardia EIA [id number] Today R10.9 - Unspecified abdominal pain, R19.5 - Other fecal abnormalities 12/17/24 0652 <Electronically signed by Moustapha Stanley DO> Cosigner Signature (if applicable): CC: Dr. Eboni Katz MD; Moustapha Stanley DO~ Signed [facility] Work Phone: Hospital Discharge instructions Additional Instructions Alternate ibuprofen and Tylenol for pain, oxycodone for breakthrough pain. Implant Used?: [facility] Work Phone: Progress note Author Ruby Parekh [facility] Note Date/Time January 07, 2025 8:00am [facility] [address] [place] [address] OFFICE VISIT Date of Service: 01/07/25 MR#: [id number] Acct: [id number] Name: GEORGIA RO Rep #: [id number] : 1945 Provider: BHANU Muñoz Age/Sex: 79/F Location: [facility] Status: Signed Intake Vital Signs 12/27/24 10:58 Height 5 ft 6 in Weight: 198 lb 8 oz BMI 32.0 BP 131/77 H Blood Pressure Location Lt brachial Position Sitting Respiration 16 Pulse 63 Pulse Source Monitor Temp 98.3 F Pulse Oximetry (%) 98 Oxygen Delivery Method room air Intake Visit Reasons: Procedure F/U/ Abd Pain Chief Complaint: Nausea Allergies lisinopril (From Zestril) Adverse Reaction (Intermediate, Verified 12/27/24 10:57) Cough hydrocodone bitartrate (From Vicodin) Adverse Reaction (Mild, Verified 12/27/24 10:57) Itching Medications ?Medication ?Instructions ?Recorded ?Confirmed ?Type multivitamin with iron 1 tab PO DAILY 03/31/1312/20 History biotin 2,500 mcg capsule 2,500 mcg PO ONCE 07/15/17 0 01/07/25 History celecoxib 200 mg capsule (Celebrex) 200 mg PO DAILY WY N pain #90 caps 09/16/23 01/07/25 Rx potassium chloride 20 mEq 20 meq PO BID #180 tabs 1011/1101/07/25 Rx tablet,extended release hydrochlorothiazide 25 mg tablet See Rx Instructions . Route 06/28/24 01/07/25 Rx .COMPLEX #90 tabs ropinirole 0.5 mg tablet 0.5 mg PO TID #360 tabs 06/1901/07/25 Rx losartan 100 mg tablet 100 mg PO DAILY 3 months #90 tabs 09/06/24 01/07/25 Rx oxybutynin chloride 10 mg 10 mg PO QDAY #90 tabs 09/0601/07/25 Rx tablet,extended release 24 hr amlodipine 5 mg tablet 7.5 mg (1.5 x 5 mg) PO DAILY 3 09/20/24 01/07/25 Rx months #135 tabs acetaminophen 325 mg tablet 650 mg PO Q4H PRN PRN Pain Or Fever 10/27/24 01/07/25 History aspirin 81 mg tablet 81 mg PO QDAY 10/27/2401/07 History pantoprazole 40 mg tablet,delayed 40 mg PO BID #180 ta bs 10/27/24 01/07/25 Rx release metformin 500 mg tablet,extended 500 mg PO BID #90 tab s 01/03/25 01/07/25 Rx release 24 hr budesonide 3 mg 9 mg (3 x 3 mg) PO QAM 8 wee ks 01/07/25 01/07/25 Rx capsule,delayed,extended release #168 ea ondansetron 4 mg disintegrating 4 mg PO Q8H #20 tabs 0 01/07/25 01/07/25 Rx tablet Have you fallen in the past year?: No PFSH Medical History Bladder disease Difficulty swallowing History of hiatal [...] hypertension Generalized osteoarthritis Surgical History History of surgical removal of skin lesion [...] SUN EXPOSURE: FREQUENTLY HPI HPI Chief Complaint: Nausea Details: GEORGIA RO, is a 79 F who presents to the office today for follow-up. I established 02.27.24 with complaints of burning [...] acute abnormality post hysterectomy and appendectomy EGD 12.9.24; - Z-line irregular, 39 cm from the [...] bm daily. SHe takes Benefiber daily. OV 7. Pt with black stools x2 weeks. They are intermittently black. Alternating between soft and normal stools. SHe continue to have lower abd cramping, epigastric pain and nausea. She has not noticed these symptoms being particularly worss than usual. Continues with PPI daily. PCP refilled Carafate however she has not yet started it. EGD 12.17.24- Normal esophagus. - Non-bleeding gastric ulcer with no stigmata of bleeding. Biopsied. - Normal examined duodenum. Colonoscopy Diverticulosis in the recto-sigmoid colon, in the sigmoid colon and in the descending colon. - Segmental moderate inflammation was found in the rectum and in the sigmoid colon secondary to colitis. - Two 8 mm polyps in the cecum, removed with a jumbo cold forceps. Resected and retrieved. OV 01.07.25 patient here to review results of endoscopy. Patient continues to have nausea after meals. Heartburn is controlled with pantoprazole twice a day. Patient having up to 3 bowel movements per day that are soft And foul-smelling. She has lower abdominal cramping prior to bowel movements, during and after. ROS Const Constitutional: Positive for weight change (weight loss); No fatigue or fever(s) ENT ENT: Positive for difficulty swallowing Gastro GI: Positive for abdominal pain, constipation, diarrhea, heartburn, difficulty swallowing and nausea/dyspepsia; No belching, bloating, change in bowel habits, change in stool character, coffeeground emesis, cramping, feeling full early, excessive flatus, incontinent of stools, Vomiting blood/hematemesis, Blood in stool, loose stools, Black,tarry stools, pain with swallowing, vomiting or other Musc Musculoskeletal: Positive for restless legs; No joint pain Skin Skin: No yellowing of the eye or itchy eyes Neuro Neurology: Positive for restless legs and other (vertigo) Psych Psychiatric: No anxiety and No depression Endo Endocrine: Positive for weight change (weight loss); No fatigue Aller/Imm Allergy/Immunologic: No itchy eyes Rodolfo/Lymp Hematologic/Lymphatic: No easy bleeding or easy bruising Exam Const General: cooperative, healthy appearing and comfortable Orientation: alert HENMT Head: normal to inspection Eyes General: appearance normal, both eyes and all related structures Neck Neck: normal visual inspection Chest Chest palpation & inspection: normal inspection of the chest Resp Effort & Inspection: normal respiratory effort Cardio Rate: regular rate Rhythm: regular rhythm GI Inspection: normal to inspection Auscultation: normal bowel sounds Palpation: soft and nontender Assessment and Plan Assessment and Plan (1) GERD (gastroesophageal reflux disease): Status: Chronic Plan: Georgia is a 79-year-old female patient here today for follow-up after upper and lower endoscopy. EGD showing normal esophagus, gastric ulcer and normal duodenum. Colonoscopy showing 2 polyps, inflammation in the rectum and sigmoid colon. Pathology with hyperplastic and tubular adenomas. Biopsies from the rectum and sigmoid with focal active colitis with comment noting that it may be related to bowel prep, medication or ischemic colitis. Prior to the colonoscopypatient had an elevated calprotectin therefore do not believe the focal active inflammation was prep induced. She does take aspirin daily but no other NSAIDs. She continues to have softer stools that are foul-smelling. Will treat her with a course of budesonide 9 mg daily for 8 weeks. Patient was agreeable. Zofran sent for as needed use. Recommended gastric emptying study for her nausea after meals however she declined at this time. She will continue PPI. - Reviewed results - Continue PPI - Repeat EGD in 3 months to ensure healing of gastric ulcer - Start budesonide 9 mg daily for 8 weeks - Zofran as needed - Follow-up in 3 months (2) Gastric ulcer: Status: Acute (3) Nausea: Status: Acute Medications: New ondansetron 4 mg PO Q8H [address]-ER 9 mg (3 x 3 mg) PO QAM 168 ea 0RF 8 weeks Coding Level of Care Code Off vis,est,level 3 Diagnoses GERD (gastroesophageal reflux disease) K21.9 Gastric ulcer K25.9 Nausea R11.0 Clinical Quality Measures Falls Risk Screening/Assistive Devices Have you fallen in the past year?: No 01/07/25 0800 <Electronically signed by Ruby DRUMMOND> Date _ Ruby DRUMMOND Cosigner Signature: Date (if applicable) CC: ~ [facility] Work Phone: Reason for referral (narrative)No reason for [facility] Work Phone: Summary Purpose Family History [...] Yes August 08, 2021 8:38am Power of Hospitality Team Member Yes August 08 8:38am Advance Directive Response Recorded Date/ Time Advance Directives Yes September 14 8:50am Living Will Yes September 14, 2021 8 :50am Power of Hospitality Team Member Yes September 14, 2021 8:50am Advance Directive Response Recorded Date/ Time Name of Medical Power of Hospitality Team Member SPOUSE August 20, 2022 11:48am Advance Directives Yes September 14 8:50am Living Will Yes August 20, 2022 11 :48am Power of Hospitality Team Member Yes August 20, 2022 11:48am Advance Directive Response Recorded Date/ Time Advance Directives Yes September 14 7:50am Living Will Yes August 20, 2022 10 :48am Power of Hospitality Team Member Yes August 20, 2022 10:48am Advance Directive Response Recorded Date/ Time Advance Directives Yes September 14 7:50am Living Will Yes May 01 8:49am Power of Hospitality Team Member Yes May 01, 2023 8:49am Advance Directive Response Recorded Date/ Time Name of Medical Power of Hospitality Team Member May 01, 2023 8:49am Advance Directives Yes September 14 7:50am Living Will Yes May 01 8:49am Power of Hospitality Team Member Yes May 01, 2023 8:49am Advance Directive Response Recorded Date/ Time Advance Directives Yes September 14 8:50am Advance Directive Response Recorded Date/ Time Do you have a Healthcare Power of Hospitality Team Member? Yes December 16, 2024 9:08am Name of Medical Power of Hospitality Team Member December 16, 2024 9:08am Advance Directives Yes September 14 8:50am Advance Directive Response Recorded Date/ Time Living Will Yes May 01 9:49am Do you have a Healthcare Power of Hospitality Team Member? Yes May 01, 2023 9:49am Do you have a Healthcare Power of Hospitality Team Member? Yes December 16, 2024 9:08am Name of Medical Power of Hospitality Team Member December 16, 2024 9:08am Advance Directives Yes September 14 8:50am Chief Complaint and Reason for Visit Chief Complaint BREAST COMPLAINTS LUMP LEFT BREAST Chief Complaint BREAST COMPLAINTS LUMP LEFT BREAST Swelling in legs Reason for Visit Shortness of breath Bilateral lower extremity edema Chronic sinusitis Hypertension Chief Complaint BREAST COMPLAINTS LUMP LEFT BREAST Swelling in legs Annual ([employer]) Enlarged LN left axilla, [employer] wants bx LEFT AXILLARY LYMPH NODE BIOPSY [...] Dark stools October 28, 2024 12:4 5pm Reason for Visit Admit Date GI [...] Dark stools October 28, 2024 12:4 5pm Abdominal pain December 17, 2024 5: 33am GI bleed December 17, 2024 5: 33am Chief Complaint Admit Date 3 m fu October 27, 2024 9:28a m FU PER RUBY October 28, 2024 12:4 5pm dyspnea on exertion November 23, 2024 6:2 9am dyspnea on exertion November 23, 2024 5:2 5pm 6 MO - LABS December 27, 2024 9:56am LYMPHNOMA December 27, 2024 10:15am Reason for Visit Admit Date GI bleed [...] Dark stools October 28, 2024 12:4 5pm Abdominal pain December 17, 2024 5: 33am GI bleed December 17, 2024 5: 33am Small lymphocytic lymphoma December 9:56am Chief Complaint Admit Date 3 m fu October 27, 2024 9:28a m FU PER RUBY October 28, 2024 12:4 5pm dyspnea on exertion November 23, 2024 6:2 9am dyspnea on exertion November 23, 2024 5:2 5pm 6 MO - LABS December 27, 2024 9:56am LYMPHNOMA December 27, 2024 10:15am Procedure F/U/ Abd Pain January 07, 2025 7:27am Reason for Visit Admit Date GI bleed [...] Dark stools October 28, 2024 12:4 5pm Abdominal pain December 17, 2024 5: 33am GI bleed December 17, 2024 5: 33am Small lymphocytic lymphoma December 9:56am Gastric ulcer January 07, 2025 7:27am Nausea January 07, 2025 7:27am GERD (gastroesophageal reflux disease) S eptember 2024 7:27am Chief Complaint Admit Date 3 m fu October 27, 2024 9:28a m FU PER RUBY October 28, 2024 12:4 5pm dyspnea on exertion November 23, 2024 6:2 9am dyspnea on exertion November 23, 2024 5:2 5pm 6 MO - LABS December 27, 2024 9:56am LYMPHNOMA December 27, 2024 10:15am Procedure F/U/ Abd Pain January 07, 2025 7:27am 3 M FU January 31, 2025 7 :47am Reason for Visit Admit Date GI bleed [...] Dark stools October 28, 2024 12:4 5pm Abdominal pain December 17, 2024 5: 33am GI bleed December 17, 2024 5: 33am Small lymphocytic lymphoma December 9:56am Gastric ulcer January 07, 2025 7:27am Nausea January 07, 2025 7:27am GERD (gastroesophageal reflux disease) S eptember 2024 7:27am Colitis January 31, 2025 7 :47am Encounter for immunization January 31, 2025 7:47am Benign essential hypertension January [id number] 7:47am Borderline type 2 diabetes mellitus Octo kerri 2024 7:47am GERD (gastroesophageal reflux disease) O ctober 2024 7:47am Obesity (BMI 30-39.9) January 31, 2025 7:47am Overactive bladder January 31, 2025 7 :47am Additional Source Comments INFORMATION SOURCE (unrecogn ized section and content) DATE CREATED AUTHOR 04/02/2018 [facility] DATE CREATED AUTHOR AUTHOR'S ORGANIZ ATION 04/03/2018 [facility] DATE CREATED AUTHOR AUTHOR'S ORGANIZ ATION 03/15/2019 [facility] DATE CREATED AUTHOR AUTHOR[facility]S ORGANIZ ATION [facility] Goals (unrecognized section and content) Goals may [...] Provider Active S tart: November 23, 2024 Team Status: Inactive Member Role/Relationship Status Dates Dr. Eboni Katz MD Primary Care Provider Active Start: December 17, 2024 End: December 17, 2024 Dr. Eboni Katz MD Referring Provider Active Start: December 17, 2024 End: December 17, 2024 Dr. Moustapha Stanley DO Attending Provider Active Start: December 17, 2024 End: December 17, 2024 Team Status: Active Member Role/Relationship Status Dates Dr. Eboni Katz MD Primary Care Provider Active Start: December 17, 2024 Dr. Eboni Katz MD Referring Provider Active Start: December 17, 2024 Dr. Moustapha Stanley DO Attending Provider Active Start: December 17, 2024 Dr. Moustapha Stanley DO Other Provider Active St art: December 17, 2024 Team Status: Inactive Member Role/Relationship Status Dates Dr. Eboni Katz MD Primary Care Provider Active Start: December 27, 2024 End: December 27, 2024 Dr. Eboni Katz MD Referring Provider Active Start: December 27, 2024 End: December 27, 2024 Rachelle Graham NP, [employer] OPERATOR-C Attending Provider Active Start: December 27, 2024 End: December 27, 2024 Team Status: Active Member Role/Relationship Status Dates Dr. Eboni Katz MD Primary Care Provider Active Start: December 27, 2024 Dr. Konstantin Saha MD Attending Provider Active Start: December 27, 2024 Dr. Konstantin Saha MD Referring Provider Active Start: December 27, 2024 Team Status: Active Member Role/Relationship Status Dates Dr. Eboni Katz MD Primary care physician Activ e Team Status: Inactive Member Role/Relationship Status Dates Dr. Eboni Katz MD Primary care physician Activ e Start: October 19, 2024 Dr. Seth Villatoro MD Attending physician Active Start: October 19, 2024 Team Status: Inactive Member Role/Relationship Status Dates Dr. Eboni Katz MD Primary care physician Activ e Start: October 27, 2024 End: October 27, 2024 Dr. Eboni Katz MD Attending physician Active Start: October 27, 2024 End: October 27, 2024 Dr. Eboni Katz MD Referring Provider Active Start: October 27, 2024 End: October 27, 2024 Team Status: Inactive Member Role/Relationship Status Dates Dr. Eboni Katz MD Primary care physician Activ e Start: October 27, 2024 End: October 27, 2024 Dr. Eboni Katz MD Attending physician Active Start: October 27, 2024 End: October 27, 2024 Dr. Eboni Katz MD Referring Provider Active Start: October 27, 2024 End: October 27, 2024 Team Status: Inactive Member Role/Relationship Status Dates Dr. Eboni Katz MD Primary care physician Activ e Start: October 28, 2024 End: October 28, 2024 Dr. Eboni Katz MD Referring Provider Active Start: October 28, 2024 End: October 28, 2024 BHANU Muñoz Attending physician Active Start: October 28, 2024 End: October 28, 2024 Team Status: Inactive Member Role/Relationship Status Dates Dr. Eboni Katz MD Primary care physician Activ e Start: November 01, 2024 End: November 01, 2024 BHANU Muñoz Attending physician Active Start: November 01, 2024 End: November 01, 2024 BHANU Muñoz Referring Provider Active Start: November 01, 2024 End: November 01, 2024 Team Status: Inactive Member Role/Relationship Status Dates Dr. Eboni Katz MD Primary care physician Activ e Start: November 23, 2024 End: November 23, 2024 Dr. Eboni Katz MD Attending physician Active Start: November 23, 2024 End: November 23, 2024 Dr. Eboni Katz MD Referring Provider Active Start: November 23, 2024 End: November 23, 2024 Team Status: Active Member Role/Relationship Status Dates Dr. Eboni Katz MD Primary care physician Activ e Start: November 23, 2024 Dr. Eboni Katz MD Referring Provider Active Start: November 23, 2024 Dr. Eboni Katz MD Nurse Practitioner Active Start: November 23, 2024 Dr. Arnoldo Phelps MD Attending physician Active Start: November 23, 2024 Team Status: Inactive Member Role/Relationship Status Dates Dr. Eboni Katz MD Primary care physician Activ e Start: December 17, 2024 End: December 17, 2024 Dr. Eboni Katz MD Referring Provider Active Start: December 17, 2024 End: December 17, 2024 Dr. Moustapha Stanley DO Attending physician Active Start: December 17, 2024 End: December 17, 2024 Team Status: Active Member Role/Relationship Status Dates Dr. Eboni Katz MD Primary care physician Activ e Start: December 17, 2024 Dr. Eboni Katz MD Referring Provider Active Start: December 17, 2024 Dr. Moustapha Stanley DO Attending physician Active Start: December 17, 2024 Dr. Moustapha Stanley DO Nurse Practitioner Active Start: December 17, 2024 Team Status: Inactive Member Role/Relationship Status Dates Dr. Eboni Katz MD Primary care physician Activ e Start: December 27, 2024 End: December 27, 2024 Dr. Eboni Katz MD Referring Provider Active Start: December 27, 2024 End: December 27, 2024 Rachelle Graham NP, [employer] SEPARATOR OPERATOR-C Attending physician Active Start: December 27, 2024 End: December 27, 2024 Team Status: Active Member Role/Relationship Status Dates Dr. Eboni Katz MD Primary care physician Activ e Start: December 27, 2024 Dr. Konstantin Saha MD Attending physician Active Start: December 27, 2024 Dr. Konstantin Saha MD Referring Provider Active Start: December 27, 2024 Team Status: Inactive Member Role/Relationship Status Dates Dr. Eboni Katz MD Primary care physician Activ e Start: January 07, 2025 End: January 07, 2025 Dr. Eboni Katz MD Referring Provider Active Start: January 07, 2025 End: January 07, 2025 BHANU Muñoz Attending physician Active Start: January 07, 2025 End: January 07, 2025 Team Status: Inactive Member Role/Relationship Status Dates Dr. Eboni Katz MD Primary care physician Activ e Start: January 31, 2025 End: January 31, 2025 Dr. Eboni Katz MD Attending physician Active Start: January 31, 2025 End: January 31, 2025 Dr. Eboni Katz MD Referring Provider Active Start: January 31, 2025 End: January 31, 2025 FOR RECORDS PERTAINING TO PATIENTS WHO ARE [...] BE BASED ON THE PRIMARY CLINICAL RECORDS. [employer] [facility]. provides no warranty or guarantee of the accuracy or completeness of information in this document.
[2025-03-12 09:46] LABS: Hematocrit 43.4 % (37-47); Hemoglobin 14.6 g/dL (12.0-15.0); Immature Granulocytes Count 0.040 X10^3/uL (0.0-0.0); Mean Corp Hgb Conc 33.6 g/dL (32-36); Mean Corpuscular Volume 88.9 fL (81-99); Mean Platelet Vol. 10.4 fl (6.2-12.0); NRBC Flagged by Analyzer 0 % (0-5); Platelet Count 204 K/mm3 (150-450); RBC Distribution Width CV 13.6 % (11.6-14.6); RBC Distribution Width SD 44.4 fl (35.1-43.9); Red Blood Count 4.88 M/mm3 (4.2-5.4); White Blood Count 7.1 K/mm3 (4.4-11.0)
[2025-03-12 09:55] LABS: Partial Thromboplast Time 24.3 Seconds (24.1-36.2); Prothrombin Time (Protime)PT. 13.6 SECONDS (11.7-14.9)
[2025-03-12 10:06] LABS: D-Dimer Quantitative (DVT/PE) 0.41 FEU/ug/m (0.27-0.49)
[2025-03-12 10:12] VITALS: BP 118/65; PULSE 76; RESP 19; O2SAT 99
[2025-03-12 10:25] LABS: Troponin T High Sensitivity 16 ng/L (<=14)
[2025-03-12 10:26] LABS: Anion Gap 14 (5-15); BUN 14 mg/dL (4-19); BUN/Creat Ratio 10.7 RATIO (10-20); Calcium,Total 9.8 mg/dL (7.6-11.0); Carbon Dioxide 23.3 mmol/L (21.0-32.0); Chloride 98 mmol/L (98-108); Glucose 92 mg/dL (70-99); Magnesium 1.8 mg/dL (1.5-2.2); Potassium 3.8 mmol/L (3.3-5.1); Pro- Brain NATRIURETIC PEPTIDE < 36 pg/mL (<=1800)
[2025-03-12 11:00] VITALS: BP 119/72; PULSE 80; RESP 16; O2SAT 96
[2025-03-12 12:00] VITALS: BP 122/70; PULSE 88; RESP 16; O2SAT 99
[2025-03-12 12:07] LABS: Mucous, Urine 0 SEEN /hpf (<or=2+); Red Blood Cells-Urine 0 SEEN /hpf (0-5)
[2025-03-12 12:07] LABS: Troponin T High Sens 2 HR 14 ng/L (<=14)
[2025-03-12 12:09] LABS: Color, Urine Yellow (Yellow); Glucose, Dipstick Normal (Normal); Ketone-Dipstick Negative (Negative); Leukocyte Esterase-Dipstick 500 /ul (Negative); Nitrite-Dipstick Negative (Negative); Occult Blood-Urine 10 /ul (Negative); Protein-Dipstick 30 mg/dl (Negative); Specific Gravity, Urine 1.010 (1.002-1.030); Urine Bilirubin Dipstick Negative (Negative)
[2025-03-12 12:17] LABS: Squamous Epithelial Cells - UA 0-5 SEEN /hpf (5-10)
[2025-03-12 13:00] VITALS: BP 118/70; PULSE 68; O2SAT 99
[2025-03-12 13:08] VITALS: BP 118/70; PULSE 68; RESP 16; TEMP 36.8; O2SAT 99
== END 2025-03-12 13:20 | disposition home or self-care (01) ==
PROVIDERS: Emergency Provider Surgery; PCP Internal Medicine; Visit Provider Surgery
DX: R07.9 Chest pain, unspecified (principal); R06.02 Shortness of breath; N39.0 Urinary tract infection, site not specified; I10 Essential (primary) hypertension; Z79.899 Other long term (current) drug therapy
CPT/HCPCS: 71046; 80048; 81001; 83735; 83880; 84484; 85025; 85379; 85610; 85730; 87077; 87086; 87088; 87186; 93005; 99284; A4216